=== PATIENT | female | born 1970 | race Two or more races ===

== ENCOUNTER 2016-06-30 15:33 | Emergency (ER) | payer OTHER ==
[2016-06-30 15:46] VITALS: BP 126/84; PULSE 92; RESP 18; TEMP 98.5
[2016-06-30] MEDS ORDERED: DIPH,PERTUS(ACELL)TETVAC-LF 0.5 ML VIAL IM ONE (15:59)
[2016-06-30] MEDS ORDERED: AMOXIC-POT CLAV 875-125MG 1 EACH TAB PO STA (15:59)
--- NOTE | 2016-06-30 16:09 | ED ---
Animal Bite HPI - General Chief Complaint: Animal Bite Stated Complaint: dog bite Time Seen by Provider: 06/30/16 15:50 Source: patient, RN notes reviewed Mode of arrival: ambulatory - History of Present Illness Initial Comments: Patient is a 46-year-old female presents to the emergency room evaluation of dog bite. Patient states yesterday she was taking care of a liter of puppies and one of them bit her left second digit. Patient states the area began to swell. Patient states she had shoulder surgery done in May and is worried about infection. Patient denies any numbness or tingling to her finger. Patient denies any other injuries during incident. Patient does state she is not up-to-date on her tetanus vaccine. Patient states the puppy was about 4 weeks old and was born from a dog that was fully immunized. Patient states that the puppy has not been outside or exposed to any wildlife. Patient has no fevers or chills. - Related Data Home Medications Medication Instructions Recorded Confirmed Docusate Sodium [Dulcolax Stool 100 mg PO DAILY 03/03/14 06/15/16 Softener] HYDROcodone/APAP 10-325MG [[place] 1 tab PO TID PRN 03/03/14 06/15/16 10-325] Losartan [Cozaar] 50 mg PO DAILY 03/03/14 06/15/16 Citalopram Hydrobromide [CeleXA] 20 mg PO DAILY 04/03/14 06/15/16 Omeprazole [PriLOSEC] 20 mg PO BID 04/03/14 06/15/16 Gabapentin [Neurontin] 400 mg PO TID 10/12/14 06/15/16 clonazePAM [Clonazepam] 2 mg PO HS 10/12/14 06/15/16 Albuterol Inhaler [Ventolin 2 puff INHALATION QID PRN 11/23/14 06/15/16 Inhaler] Albuterol Nebulized [Ventolin 2.5 mg INHALATION QID PRN 11/23/14 06/15/16 Nebulized] Cyclobenzaprine [Flexeril] 10 mg PO TID 02/02/15 06/15/16 Azelastine HCl [Optivar 0.05% 1 drop BOTH EYES DAILY 06/12/16 06/15/16 Oph Soln] Fenofibrate 160 mg PO DAILY 06/12/16 06/15/16 Ibuprofen [Motrin] 800 mg PO BID 06/12/16 06/15/16 Montelukast Sodium [Singulair] 10 mg PO HS 06/12/16 06/15/16 OXcarbazepine [Oxtellar Xr] 3 tab PO DAILY 06/12/16 06/15/16 Oxybutynin Chloride [Ditropan] 5 mg PO BID 06/12/16 06/15/16 Prochlorperazine [Compazine] 10 mg PO TID 06/12/16 06/15/16 Verapamil HCl [Verapamil ER] 120 mg PO DAILY 06/12/16 06/15/16 Previous Rx's Medication Instructions Recorded Doxycycline Hyclate 100 mg PO BID #10 tab 06/15/16 HYDROcodone/APAP 7.5-325MG [[place] 1 - 2 tab PO Q6HR PRN #40 tab 06/15/16 7.5-325] Amoxicillin/Potassium Clav 1 each PO Q12HR #20 tab 06/30/16 [Augmentin 875-125 Tablet] Allergies Allergy/AdvReac Type Severity Reaction Status Date / Time azithromycin Allergy Swelling Verified 06/15/16 11:28 [From Zithromax Z-Brayden] ondansetron HCl Allergy Unknown, Verified 06/15/16 11:28 [From Zofran (as ONLY IN A hydrochloride)] PILL FORM IS IT A PROBLEM morphine AdvReac Vomiting Verified 06/15/16 11:28 Review of Systems ROS Statement: Those systems with pertinent positive or pertinent negative responses have been documented in the HPI. ROS Other: All systems not noted in ROS Statement are negative. Past Medical History Past Medical History: Asthma, Diabetes Mellitus, GERD/Reflux, Hyperlipidemia, Hypertension, Memory Impairment, Musculoskeletal Disorder, Seizure Disorder Additional Past Medical History / Comment(s): Migraines. HX kidney stones. HX TYPE 2 DM, OFF RX NOW. LAST SEIZURE 12/2015. RT SHOULDER TORN ROTATOR CUFF. BONE SPURS RT SIDE NECK. NARCOLEPSY. History of Any Multi-Drug Resistant Organisms: None Reported Past Surgical History: Appendectomy, Bowel Resection, Cholecystectomy, Heart Catheterization, Tubal Ligation, Uterine Ablation Additional Past Surgical History / Comment(s): Uterine ablation. PARTIAL COLECTOMY. CYST REMOVED FROM RIGHT WRIST. PAIN INJ BACK. Past Anesthesia/Blood Transfusion Reactions: No Reported Reaction Type of Cardiac Device: Loop Device Placement Date:: MAR 2009 AND 2013 Past Psychological History: Depression Smoking Status: Former smoker Past Alcohol Use History: None Reported Additional Past Alcohol Use History / Comment(s): SMOKED FEW YEARS LIGHTLY, QUIT 2006 Past Drug Use History: None Reported - Past Family History Father Family Medical History: Cancer General Exam - General Exam Comments Initial Comments: Sitting in exam room in no acute distress. Limitations: no limitations General appearance: alert, in no apparent distress Head exam: Present: atraumatic, normocephalic, normal inspection Eye exam: Present: normal appearance ENT exam: Present: normal exam Neck exam: Present: normal inspection Respiratory exam: Absent: respiratory distress Left Hand Wrist exam: Present: full ROM. Absent: normal inspection (2 puncture wounds on the palmar portion of the proximal phalanx of the second digit) Neuro motor exam: Present: wrist extension intact, thumb opposition intact, thumb IP flexion intact, thumb adduction intact, fingers 2-5 abduction intact Vascular: Present: normal capillary refill (Capillary refill less than 2 seconds ), radial pulse (2+), ulnar pulse (2+) Back exam: Present: normal inspection Neurological exam: Present: alert, oriented X3, CN II-XII intact, normal gait Psychiatric exam: Present: normal affect, normal mood Skin exam: Present: warm, dry. Absent: rash Course Vital Signs 06/30/16 15:43 Temperature 98.5 F Pulse Rate 92 Respiratory 18 Rate Blood Pressure 126/84 O2 Sat by Pulse 98 Oximetry Medical Decision Making - Medical Decision Making Patient is a 46 year-old female presents to the emergency room for evaluation of dog bite. Patient updated on her tetanus vaccine. Patient be placed on Augmentin. Advised patient to keep wound clean and to follow-up with her primary care provider in 1-2 days. Patient states she understands everything that was discussed with her. Return parameters discussed. Case discussed with Dr. Claros. Disposition Clinical Impression: Dog bite Disposition: HOME SELF-CARE Condition: Good Instructions: Animal Bite (ED) Additional Instructions: Clean area with antibacterial soap and water. Take antibiotics as directed. Please follow up with primary care provider in 1-2 days. If any new symptom arises, symptoms worsen or fever develops, return to ER as soon as possible. Prescriptions: Amoxicillin/Potassium Clav [Augmentin 875-125 Tablet] 1 each PO Q12HR #20 tab Referrals: Mateo Govea MD [Primary Care Provider] - 1-2 days Time of Disposition: 16:06
== END 2016-06-30 16:15 | disposition home or self-care (01) ==
LOC: EC 15:33
DX: S61.251A Open bite of left index finger without damage to nail, initial encounter (principal); W54.0XXA Bitten by dog, initial encounter; Y93.K9 Activity, other involving animal care; Z23 Encounter for immunization; I10 Essential (primary) hypertension; G40.909 Epilepsy, unspecified, not intractable, without status epilepticus; K21.9 Gastro-esophageal reflux disease without esophagitis; F32.9 Major depressive disorder, single episode, unspecified; Z79.899 Other long term (current) drug therapy; Z88.1 Allergy status to other antibiotic agents; Z88.8 Allergy status to other drugs, medicaments and biological substances; Z88.5 Allergy status to narcotic agent; Z87.891 Personal history of nicotine dependence
CPT/HCPCS: 90471; 90715; 99283

== ENCOUNTER 2016-08-04 20:56 | Emergency (ER) | payer OTHER ==
[2016-08-04 21:04] VITALS: PULSE 100; RESP 16
--- NOTE | 2016-08-04 22:01 | ED ---
ENT HPI - General Chief complaint: Dizziness Stated complaint: ENT Time Seen by Provider: 08/04/16 21:29 Source: patient, RN notes reviewed Mode of arrival: wheelchair Limitations: no limitations - History of Present Illness MD complaint: sore throat, ear pain Onset/Timin -: days(s) Location: R ear, throat Severity: severe Quality: aching Consistency: constant Improves with: none Worsens with: none - Related Data Home Medications Medication Instructions Recorded Confirmed Docusate Sodium [Dulcolax Stool 100 mg PO DAILY 03/03/14 08/04/16 Softener] HYDROcodone/APAP 10-325MG [[place] 1 tab PO TID PRN 03/03/14 08/04/16 10-325] Losartan [Cozaar] 50 mg PO DAILY 03/03/14 08/04/16 Citalopram Hydrobromide [CeleXA] 20 mg PO DAILY 04/03/14 08/04/16 Omeprazole [PriLOSEC] 20 mg PO BID 04/03/14 08/04/16 Gabapentin [Neurontin] 400 mg PO TID 10/12/14 08/04/16 clonazePAM [Clonazepam] 2 mg PO HS 10/12/14 08/04/16 Albuterol Inhaler [Ventolin 2 puff INHALATION QID PRN 11/23/14 08/04/16 Inhaler] Albuterol Nebulized [Ventolin 2.5 mg INHALATION QID PRN 11/23/14 08/04/16 Nebulized] Cyclobenzaprine [Flexeril] 10 mg PO TID 02/02/15 08/04/16 Azelastine HCl [Optivar 0.05% 1 drop BOTH EYES DAILY 06/12/16 08/04/16 Ophth Soln] Fenofibrate 160 mg PO DAILY 06/12/16 08/04/16 Ibuprofen [Motrin] 800 mg PO BID 06/12/16 08/04/16 Montelukast Sodium [Singulair] 10 mg PO HS 06/12/16 08/04/16 OXcarbazepine [Oxtellar Xr] 3 tab PO DAILY 06/12/16 08/04/16 Oxybutynin Chloride [Ditropan] 5 mg PO BID 06/12/16 08/04/16 Prochlorperazine [Compazine] 10 mg PO TID 06/12/16 08/04/16 Verapamil HCl [Verapamil ER] 120 mg PO DAILY 06/12/16 08/04/16 Previous Rx's Medication Instructions Recorded Doxycycline Hyclate 100 mg PO BID #10 tab 06/15/16 HYDROcodone/APAP 7.5-325MG [[place] 1 - 2 tab PO Q6HR PRN #40 tab 06/15/16 7.5-325] Amoxicillin/Potassium Clav 1 each PO Q12HR #20 tab 06/30/16 [Augmentin 875-125 Tablet] Allergies Allergy/AdvReac Type Severity Reaction Status Date / Time azithromycin Allergy Swelling Verified 08/04/16 21:04 [From Zithromax Z-Brayden] ondansetron HCl Allergy Unknown, Verified 08/04/16 21:04 [From Zofran (as ONLY IN A hydrochloride)] PILL FORM IS IT A PROBLEM morphine AdvReac Vomiting Verified 08/04/16 21:04 Review of Systems ROS Statement: Those systems with pertinent positive or pertinent negative responses have been documented in the HPI. ROS Other: All systems not noted in ROS Statement are negative. Constitutional: Denies: fever, chills, weakness Eyes: Denies: eye pain, eye discharge, vision change ENT: Reports: ear pain, throat pain. Denies: hearing loss, congestion Respiratory: Reports: cough. Denies: dyspnea Cardiovascular: Denies: chest pain Gastrointestinal: Denies: abdominal pain, nausea, vomiting Musculoskeletal: Denies: back pain Neurological: Denies: headache Past Medical History Past Medical History: Asthma, Diabetes Mellitus, GERD/Reflux, Hyperlipidemia, Hypertension, Memory Impairment, Musculoskeletal Disorder, Seizure Disorder Additional Past Medical History / Comment(s): Migraines. HX kidney stones. HX TYPE 2 DM, OFF RX NOW. LAST SEIZURE 12/2015. RT SHOULDER TORN ROTATOR CUFF. BONE SPURS RT SIDE NECK. NARCOLEPSY. History of Any Multi-Drug Resistant Organisms: None Reported Past Surgical History: Appendectomy, Bowel Resection, Cholecystectomy, Heart Catheterization, Tubal Ligation, Uterine Ablation Additional Past Surgical History / Comment(s): Uterine ablation. PARTIAL COLECTOMY. CYST REMOVED FROM RIGHT WRIST. PAIN INJ BACK. Past Anesthesia/Blood Transfusion Reactions: No Reported Reaction Type of Cardiac Device: Loop Device Placement Date:: MAR 2009 AND 2013 Past Psychological History: Depression Smoking Status: Former smoker Past Alcohol Use History: None Reported Additional Past Alcohol Use History / Comment(s): SMOKED FEW YEARS LIGHTLY, QUIT 2006 Past Drug Use History: None Reported - Past Family History Father Family Medical History: Cancer General Exam Limitations: no limitations General appearance: alert, in no apparent distress Head exam: Present: atraumatic, normocephalic Eye exam: Present: normal appearance, PERRL, EOMI. Absent: scleral icterus, conjunctival injection, nystagmus ENT exam: Present: other (There is injection of the oropharynx. The uvula is midline without edema. There is mild erythema to the right external auditory canal and there is mild tenderness of the tragus. The right tympanic membrane normal, no effusion.) Neck exam: Present: normal inspection, full ROM, lymphadenopathy. Absent: tenderness, meningismus Neurological exam: Present: alert, CN II-XII intact Skin exam: Present: warm, dry, intact, normal color. Absent: rash Course Vital Signs 08/04/16 21:01 Temperature 98.2 F Pulse Rate 100 Respiratory 16 Rate Blood Pressure 148/52 O2 Sat by Pulse 97 Oximetry Medical Decision Making - Lab Data Lab Results 08/04/16 Range/Units 21:14 Group A Strep Rapid Negative (Negative) Disposition Clinical Impression: External otitis of right ear Disposition: HOME SELF-CARE Condition: Good Instructions: Otitis Externa (ED) Referrals: Mateo Govea MD [Primary Care Provider] - 1-2 days
--- NOTE | 2016-08-04 22:09 | CT ---
EXAMINATION TYPE: CT mastoid wo con DATE OF EXAM: 08/04/2016 10:01 PM COMPARISON: NONE HISTORY: Pt states of ear infection and falls x2. CT DLP: 150 mGycm Automated exposure control for dose reduction was used. FINDINGS: Multiple axial sections were obtained through the temporal bones without contrast. There is some debris in the left external auditory canal. There is bilateral normal appearance of the tympanic recess with normal aeration. There is normal aeration of the middle ear cavity bilaterally. There is normal aeration of the mastoid air cells. Cochlea and semicircular canals are symmetric. Th ere is no evidence of a cerebellopontine angle mass. Internal auditory canals are symmetric. I see no bony destructive process. IMPRESSION: NEGATIVE CT SCAN OF THE TEMPORAL BONES. I DO NOT SEE A CAUSE FOR RIGHT SIDE SYMPTOMS.
[2016-08-04] MEDS ORDERED: NEOMYCIN-POLYMYXIN-HC (3.5-10,000-10 MG) OTIC DROPS 10 ML BTL RIGHT EAR STA (22:25)
[2016-08-04 22:38] VITALS: BP 124/77; TEMP 98.7
== END 2016-08-04 22:40 | disposition home or self-care (01) ==
LOC: EC 20:56
DX: H60.91 Unspecified otitis externa, right ear (principal); R42 Dizziness and giddiness; J02.9 Acute pharyngitis, unspecified; J45.909 Unspecified asthma, uncomplicated; E11.9 Type 2 diabetes mellitus without complications; K21.9 Gastro-esophageal reflux disease without esophagitis; E78.5 Hyperlipidemia, unspecified; I10 Essential (primary) hypertension; G40.909 Epilepsy, unspecified, not intractable, without status epilepticus; F32.9 Major depressive disorder, single episode, unspecified; Z87.891 Personal history of nicotine dependence; Z79.899 Other long term (current) drug therapy; Z88.5 Allergy status to narcotic agent; Z88.1 Allergy status to other antibiotic agents; Z88.8 Allergy status to other drugs, medicaments and biological substances
CPT/HCPCS: 70486; 87081; 87430; 99284

== ENCOUNTER → 2016-10-23 | Outpatient (CLI) | payer OTHER ==
--- NOTE | 2016-10-23 13:16 | XR ---
EXAMINATION TYPE: XR chest 2V DATE OF EXAM: 10/23/2016 1:12 PM HISTORY: R06.02 Shortness of breath. REFERENCE: Previous study dated 07/16/2015. FINDINGS: The lungs are clear. Pleural spaces are clear. Heart size is normal. IMPRESSION: NORMAL CHEST.
== END | disposition home or self-care (01) ==
LOC: RADXRMAIN 13:04
PROVIDERS: ATTEND Family Medicine
DX: R06.02 Shortness of breath (principal)
CPT/HCPCS: 71020

== ENCOUNTER → 2017-03-06 | Outpatient (CLI) | payer OTHER ==
--- NOTE | 2017-03-06 18:11 | XR ---
EXAMINATION TYPE: XR shoulder complete LT DATE OF EXAM: 03/06/2017 COMPARISON: NONE HISTORY: Pain TECHNIQUE: 3 views FINDINGS: I see no fracture nor dislocation. Glenohumeral joint is anatomic. There is a 5 mm calcific ation at the greater tuberosity. AC joint appears normal. IMPRESSION: Calcific tendinitis. No fracture.
== END | disposition home or self-care (01) ==
LOC: RADXRMAIN 16:56
PROVIDERS: ATTEND Family Medicine
DX: M75.32 Calcific tendinitis of left shoulder (principal)

== ENCOUNTER 2017-03-09 16:47 | Emergency (ER) | payer OTHER ==
[2017-03-09 17:05] VITALS: RESP 18
[2017-03-09] MEDS ORDERED: HYDROmorphone 1 MG/ML 1 ML SYRINGE IM STA (17:18)
--- NOTE | 2017-03-09 17:51 | ED ---
General Adult HPI - General Chief complaint: Extremity Injury, Upper Stated complaint: Arm Pain Time Seen by Provider: 03/09/17 16:58 Source: patient, family Mode of arrival: ambulatory Limitations: no limitations - History of Present Illness Initial comments: 47-year-old female patient presents to emergency department today for evaluation of right shoulder and upper arm pain. Patient states that she has had this increased pain over the last 3-4 days. She states that she has been using his are more due to a surgery on her right shoulder in May. She states that she did see her primary care physician 2 days ago and did have an x- ray done of the shoulder. Patient states that the pain feels similar to when she injured her right arm and had a bicep muscle tear. She states she does have a appointment with her orthopedic surgeon on Sunday for evaluation. She states that the pain is a sharp burning pain that worsens with any movement of her left shoulder or elbow. She states that the pain radiates down her forearm. She denies any numbness or tingling to her hand. Denies any redness, warmth, or rash. Patient denies any recent fever, chills, shortness breath, chest pain, abdominal pain, nausea, vomiting, diarrhea, constipation, back pain , numbness, tingling, headache, visual changes, hematuria, dysuria, urinary frequency, urinary urgency, or any other complaints. - Related Data Home Medications Medication Instructions Recorded Confirmed Docusate Sodium [Dulcolax Stool 100 mg PO DAILY 03/03/14 08/04/16 Softener] HYDROcodone/APAP 10-325MG [[place] 1 tab PO TID PRN 03/03/14 08/04/16 10-325] Losartan [Cozaar] 50 mg PO DAILY 03/03/14 08/04/16 Citalopram Hydrobromide [CeleXA] 20 mg PO DAILY 04/03/14 08/04/16 Omeprazole [PriLOSEC] 20 mg PO BID 04/03/14 08/04/16 Gabapentin [Neurontin] 400 mg PO TID 10/12/14 08/04/16 clonazePAM [Clonazepam] 2 mg PO HS 10/12/14 08/04/16 Albuterol Inhaler [Ventolin 2 puff INHALATION QID PRN 11/23/14 08/04/16 Inhaler] Albuterol Nebulized [Ventolin 2.5 mg INHALATION QID PRN 11/23/14 08/04/16 Nebulized] Cyclobenzaprine [Flexeril] 10 mg PO TID 02/02/15 08/04/16 Azelastine HCl [Optivar 0.05% 1 drop BOTH EYES DAILY 06/12/16 08/04/16 Ophth Soln] Fenofibrate 160 mg PO DAILY 06/12/16 08/04/16 Ibuprofen [Motrin] 800 mg PO BID 06/12/16 08/04/16 Montelukast Sodium [Singulair] 10 mg PO HS 06/12/16 08/04/16 OXcarbazepine [Oxtellar Xr] 3 tab PO DAILY 06/12/16 08/04/16 Oxybutynin Chloride [Ditropan] 5 mg PO BID 06/12/16 08/04/16 Prochlorperazine [Compazine] 10 mg PO TID 06/12/16 08/04/16 Verapamil HCl [Verapamil ER] 120 mg PO DAILY 06/12/16 08/04/16 Previous Rx's Medication Instructions Recorded Doxycycline Hyclate 100 mg PO BID #10 tab 06/15/16 HYDROcodone/APAP 7.5-325MG [[place] 1 - 2 tab PO Q6HR PRN #40 tab 06/15/16 7.5-325] Amoxicillin/Potassium Clav 1 each PO Q12HR #20 tab 06/30/16 [Augmentin 875-125 Tablet] Allergies Allergy/AdvReac Type Severity Reaction Status Date / Time azithromycin Allergy Swelling Verified 03/09/17 17:06 [From Zithromax Z-Brayden] ondansetron HCl Allergy Unknown, Verified 03/09/17 17:06 [From Zofran (as ONLY IN A hydrochloride)] PILL FORM IS IT A PROBLEM morphine AdvReac Vomiting Verified 03/09/17 17:06 Review of Systems ROS Statement: Those systems with pertinent positive or pertinent negative responses have been documented in the HPI. ROS Other: All systems not noted in ROS Statement are negative. Past Medical History Past Medical History: Asthma, Diabetes Mellitus, GERD/Reflux, Hyperlipidemia, Hypertension, Memory Impairment, Musculoskeletal Disorder, Seizure Disorder Additional Past Medical History / Comment(s): Migraines. HX kidney stones. HX TYPE 2 DM, OFF RX NOW. LAST SEIZURE 12/2015. RT SHOULDER TORN ROTATOR CUFF. BONE SPURS RT SIDE NECK. NARCOLEPSY. History of Any Multi-Drug Resistant Organisms: None Reported Past Surgical History: Appendectomy, Bowel Resection, Cholecystectomy, Heart Catheterization, Tubal Ligation, Uterine Ablation Additional Past Surgical History / Comment(s): Uterine ablation. PARTIAL COLECTOMY. CYST REMOVED FROM RIGHT WRIST. PAIN INJ BACK. Past Anesthesia/Blood Transfusion Reactions: No Reported Reaction Type of Cardiac Device: Loop Device Placement Date:: MAR 2009 AND 2013 Past Psychological History: Anxiety Smoking Status: Former smoker Past Alcohol Use History: None Reported Past Drug Use History: None Reported - Past Family History Father Family Medical History: Cancer General Exam Limitations: no limitations General appearance: alert, in no apparent distress Eye exam: Present: normal appearance, PERRL, EOMI. Absent: scleral icterus, conjunctival injection, periorbital swelling ENT exam: Present: normal exam, normal oropharynx, mucous membranes moist Neck exam: Present: normal inspection. Absent: tenderness, meningismus, lymphadenopathy Respiratory exam: Present: normal lung sounds bilaterally. Absent: respiratory distress, wheezes, rales, rhonchi, stridor Cardiovascular Exam: Present: regular rate, normal rhythm, normal heart sounds. Absent: systolic murmur, diastolic murmur, rubs, gallop, clicks GI/Abdominal exam: Present: soft, normal bowel sounds. Absent: distended, tenderness, guarding, rebound, rigid Extremities exam: Present: normal inspection, normal capillary refill. Absent: full ROM (Full range of motion of the left elbow however causes increased pain to her upper arm. Patient has forward flexion of about 45 before she has significant pain and has to stop. She has about 30 abduction before she states too much pain to continue. Skin is pink, warm, and dry. Cap refill less than 3 seconds. Radial pulses are strong and equal bilaterally. No significant swelling noted to the arm or joints.), tenderness, pedal edema, joint swelling, calf tenderness Back exam: Present: normal inspection Neurological exam: Present: alert, oriented X3, CN II-XII intact Psychiatric exam: Present: normal affect, normal mood Skin exam: Present: warm, dry, intact, normal color. Absent: rash Course Vital Signs 03/09/17 17:03 Temperature 97.7 F Pulse Rate 94 Respiratory 18 Rate Blood Pressure 134/92 O2 Sat by Pulse 97 Oximetry Medical Decision Making - Medical Decision Making 47-year-old female patient presented to emergency department today for evaluation of left shoulder pain. Patient has no injury to the area. Has pain did radiate down into her left upper arm and she did have some tenderness to the area we did perform a venous duplex of the left upper extremity which was negative for any acute DVT. X-ray obtained by her primary care physician 2 days ago did show some skin calcific tendinitis which could be contributed to her pain. She does have an appointment with her soil fertility specialist on Sunday which I urged her to keep. She is instructed to continue her ibuprofen and [place] that she has a home as well as to apply warm moist heat to the area. She verbalizes understanding and agrees with this plan. - Radiology Data Radiology results: report reviewed, image reviewed US venous Doppler duplex of the left upper extremity appears negative for DVT. Impression by Dr. Langston shows no evidence of deep venous thrombosis of the left arm. 3 views of the left shoulder shows no fracture nor dislocation. Glenohumeral joint is anatomic. There is a 5 mm calcification at the greater tuberosity. Before meals joint appears normal. Impression by Dr. Langston shows calcific tendinitis with no fracture. Disposition Clinical Impression: Left arm pain, Calcific tendonitis of left shoulder Disposition: HOME SELF-CARE Condition: Good Additional Instructions: Continue with ibuprofen and [place] for pain relief. Apply warm moist heat to the area. Keep appointments with primary care physician and soil fertility specialist for further evaluation. Return immediately for any new, worsening, or concerning symptoms. Referrals: Mateo Govea MD [Primary Care Provider] - 1-2 days Time of Disposition: 18:35
--- NOTE | 2017-03-09 18:23 | US ---
EXAMINATION TYPE: US venous doppler duplex UE LT DATE OF EXAM: 03/09/2017 COMPARISON: NONE CLINICAL HISTORY: Pain in left arm. SIDE PERFORMED: Left Left Arm: Appears negative for DVT IMPRESSION: No evidence of deep venous thrombosis in the left arm.
[2017-03-09 18:48] VITALS: BP 123/68; PULSE 82; TEMP 97.9
== END 2017-03-09 18:48 | disposition home or self-care (01) ==
LOC: EC 16:47
DX: M75.32 Calcific tendinitis of left shoulder (principal); M79.622 Pain in left upper arm; E11.9 Type 2 diabetes mellitus without complications; J45.909 Unspecified asthma, uncomplicated; K21.9 Gastro-esophageal reflux disease without esophagitis; E78.5 Hyperlipidemia, unspecified; I10 Essential (primary) hypertension; G43.909 Migraine, unspecified, not intractable, without status migrainosus; F41.9 Anxiety disorder, unspecified; Z87.891 Personal history of nicotine dependence; Z79.1 Long term (current) use of non-steroidal anti-inflammatories (NSAID); Z79.899 Other long term (current) drug therapy; Z88.1 Allergy status to other antibiotic agents; Z88.5 Allergy status to narcotic agent; Z88.8 Allergy status to other drugs, medicaments and biological substances
CPT/HCPCS: 93971; 99283; 96372; J1170

== ENCOUNTER 2017-05-05 11:02 | Emergency (ER) | payer OTHER ==
[2017-05-05 11:09] VITALS: BP 128/82; PULSE 114; RESP 16; TEMP 97
--- NOTE | 2017-05-05 11:29 | ED ---
General Adult HPI - General Chief complaint: Extremity Problem,Nontraumatic Stated complaint: POST OP LEG PAIN Time Seen by Provider: 05/05/17 11:05 Source: patient, RN notes reviewed Mode of arrival: wheelchair Limitations: no limitations - History of Present Illness Initial comments: This is a 47-year-old female who presents emergency Department complaining of left calf pain. Patient states she had injections in her back on Sunday from anesthesia and ever since then her left calf is been very painful particularly when she walks. Patient has not noticed any swelling of the Patient has not noticed any redness of the calf. Patient states moving it makes it hurt more as well as squeezing it makes it hurt. Patient denies any previous history of any clots. Patient is worried that it might have a clot in it because of the pain. Patient denies any back pain at this time. Patient denies any areas of redness or swelling in her back. Patient denies any injury to her leg. Patient denies any shortness of breath difficulty breathing or chest pain patient denies any fever chills - Related Data Home Medications Medication Instructions Recorded Confirmed Docusate Sodium [Dulcolax Stool 100 mg PO DAILY 03/03/14 04/26/17 Softener] HYDROcodone/APAP 10-325MG [[place] 1 tab PO TID PRN 03/03/14 04/26/17 10-325] Losartan [Cozaar] 50 mg PO DAILY 03/03/14 04/26/17 Citalopram Hydrobromide [CeleXA] 20 mg PO DAILY 04/03/14 04/26/17 Omeprazole [PriLOSEC] 20 mg PO BID 04/03/14 04/26/17 Gabapentin [Neurontin] 400 mg PO TID 10/12/14 04/26/17 clonazePAM [Clonazepam] 2 mg PO HS 10/12/14 04/26/17 Albuterol Inhaler [Ventolin 2 puff INHALATION QID PRN 11/23/14 05/01/17 Inhaler] Albuterol Nebulized [Ventolin 2.5 mg INHALATION QID PRN 11/23/14 05/01/17 Nebulized] Cyclobenzaprine [Flexeril] 10 mg PO TID 02/02/15 04/26/17 Azelastine HCl [Optivar 0.05% 1 drop BOTH EYES DAILY 06/12/16 04/26/17 Ophth Soln] Fenofibrate 160 mg PO DAILY 06/12/16 04/26/17 Ibuprofen [Motrin] 800 mg PO BID 06/12/16 04/26/17 Montelukast Sodium [Singulair] 10 mg PO HS 06/12/16 04/26/17 OXcarbazepine [Oxtellar Xr] 900 mg PO DAILY 06/12/16 04/26/17 Oxybutynin Chloride [Ditropan] 5 mg PO BID 06/12/16 04/26/17 Prochlorperazine [Compazine] 10 mg PO TID 06/12/16 04/26/17 Verapamil HCl [Verapamil ER] 120 mg PO DAILY 06/12/16 04/26/17 Cetirizine HCl 10 mg PO DAILY 05/01/17 05/01/17 Allergies Allergy/AdvReac Type Severity Reaction Status Date / Time azithromycin Allergy Swelling Verified 05/05/17 11:09 [From Zithromax Z-Brayden] ondansetron HCl Allergy Unknown, Verified 05/05/17 11:09 [From Zofran (as ONLY IN A hydrochloride)] PILL FORM IS IT A PROBLEM morphine AdvReac Vomiting Verified 05/05/17 11:09 Review of Systems ROS Statement: Those systems with pertinent positive or pertinent negative responses have been documented in the HPI. ROS Other: All systems not noted in ROS Statement are negative. Past Medical History Past Medical History: Asthma, Diabetes Mellitus, GERD/Reflux, Hyperlipidemia, Hypertension, Memory Impairment, Musculoskeletal Disorder, Seizure Disorder Additional Past Medical History / Comment(s): Migraines. HX kidney stones. HX TYPE 2 DM-OFF RX NOW. LAST SEIZURE 12/2016. RT SHOULDER TORN ROTATOR CUFF. BONE SPURS RT SIDE NECK,fx. tailbone, colitis, NARCOLEPSY. History of Any Multi-Drug Resistant Organisms: None Reported Past Surgical History: Appendectomy, Bowel Resection, Cholecystectomy, Heart Catheterization, Tubal Ligation, Uterine Ablation Additional Past Surgical History / Comment(s): CYST REMOVED FROM RIGHT WRIST, pain clinic procedures Past Anesthesia/Blood Transfusion Reactions: No Reported Reaction Type of Cardiac Device: Loop Device Placement Date:: MAR 2009 AND 2013 Past Psychological History: Anxiety Smoking Status: Former smoker Past Alcohol Use History: None Reported Past Drug Use History: None Reported - Past Family History Father Family Medical History: Cancer General Exam - General Exam Comments Initial Comments: GENERAL: Patient is well-developed and well-nourished. Patient is nontoxic and well- hydrated and is in mild distress. ENT: Neck is soft and supple. No significant lymphadenopathy is noted. Oropharynx is clear. Moist mucous membranes. Neck has full range of motion without eliciting any pain. EYES: The sclera were anicteric and conjunctiva were pink and moist. Extraocular movements were intact and pupils were equal round and reactive to light. Eyelids were unremarkable. PULMONARY: Unlabored respirations. Good breath sounds bilaterally. No audible rales rhonchi or wheezing was noted. CARDIOVASCULAR: There is a regular rate and rhythm without any murmurs gallops or rubs. ABDOMEN: Soft and nontender with normal bowel sounds. No palpable organomegaly was noted. There is no palpable pulsatile mass. SKIN: Skin is clear with no lesions or rashes and otherwise unremarkable. NEUROLOGIC: Patient is alert and oriented x3. Cranial nerves II through XII are grossly intact. Motor and sensory are also intact. Normal speech, volume and content. Symmetrical smile. MUSCULOSKELETAL: Normal extremities with adequate strength and full range of motion. No lower extremity swelling or edema. The calf is tender to palpate. LYMPHATICS: No significant lymphadenopathy is noted PSYCHIATRIC: Normal psychiatric evaluation. Normal interpersonal interactions appears functionally intact in deals appropriately with others. No signs of depression. No signs of anxiety. N Limitations: no limitations Course Vital Signs 05/05/17 11:05 Temperature 97.0 F L Pulse Rate 114 H Respiratory 16 Rate Blood Pressure 128/82 O2 Sat by Pulse 100 Oximetry Medical Decision Making - Medical Decision Making Ultrasound showed no DVT. Disposition Clinical Impression: Strain of calf muscle Disposition: HOME SELF-CARE Condition: Good Instructions: Muscle Strain (ED) Additional Instructions: Patient should take Motrin 600 mg every 6 when necessary Referrals: Mateo Govea MD [Primary Care Provider] - 1-2 days Time of Disposition: 11:52
--- NOTE | 2017-05-05 11:48 | US ---
EXAMINATION TYPE: US venous doppler duplex LE LT DATE OF EXAM: 05/05/2017 11:42 AM COMPARISON: Previous study dated 03/09/2017. CLINICAL HISTORY: Pain left leg. SIDE PERFORMED: Left TECHNIQUE: The lower extremity deep venous system is examined utilizing real time linear array sonog zamzam with graded compression, doppler sonography and color-flow sonography. VESSELS IMAGED: External Iliac Vein (EIV) Common Femoral Vein Deep Femoral Vein Greater Saphenous Vein * Femoral Vein Popliteal Vein Small Saphenous Vein * Proximal Calf Veins (* superficial vessels) Left Leg: Negative for DVT No popliteal fossa lesion is seen. IMPRESSION: THIS EXAMINATION IS NEGATIVE FOR DVT WITHIN THE LEFT LEG.
== END 2017-05-05 12:05 | disposition home or self-care (01) ==
LOC: EC 11:02
DX: S86.912A Strain of unspecified muscle(s) and tendon(s) at lower leg level, left leg, initial encounter (principal); J45.909 Unspecified asthma, uncomplicated; I10 Essential (primary) hypertension; G40.909 Epilepsy, unspecified, not intractable, without status epilepticus; K21.9 Gastro-esophageal reflux disease without esophagitis; F41.9 Anxiety disorder, unspecified; Z87.891 Personal history of nicotine dependence; Z98.890 Other specified postprocedural states; Z88.1 Allergy status to other antibiotic agents; Z88.5 Allergy status to narcotic agent; Z88.8 Allergy status to other drugs, medicaments and biological substances; Z79.899 Other long term (current) drug therapy; X58.XXXA Exposure to other specified factors, initial encounter
CPT/HCPCS: 99283

== ENCOUNTER → 2017-06-26 | Outpatient (CLI) | payer OTHER ==
--- NOTE | 2017-06-26 15:37 | P.PN ---
Subjective Progress Note Date: 06/26/17 This is follow-up visit for this patient with a history of severe and chronic low back pain and chronic neck pain diagnosed with lumbar degenerative disc diseases , lumbar herniated disc disease, lumbar epidural steroid injections which helped her low back pain and patient currently complaining of increased neck pain, constant and increases with any neck movement radiated to the shoulder blade area bilaterally, no numbness or tingling sensation she had no motor or sensory deficits Patients currently on 1-Neurontin 400 mg 3 times a day 2- norco 10/325 every 6 hours 3-Flexeril 10 mg 3 times a day. 4- motrin 800 mg 3 times a day Patient denies any side effects of the medication, denies excessive drowsiness or sleepiness, denies suicidal ideation, and reports that the current pain medication is NOT helping To control the pain and improve activity of daily living Patient denies any motor or sensory deficit , patient denies any fever or night sweats, denies any change in the bowel movements or urination Physical Examinations : 1-Constitutiona : Cooperative , not in acute distress . 2-HEENT : nech ; supple , no Lymphadenopathy , no Thyromegaly , normal thyroid size . eyes : no ptosis , no icterus, no photophobia . ENT : normal of hearing , normal oropharynx , no Thrush . 3- Respiratory : Chest clear to auscultations Bilaterally , no wheezing , no Rhonchi . 4- Cardiovascular : regular rate and rhythem , S1 , S2 , no S3 , no S4. 5- Gastrointestinal : abdomen soft no tenderness , bowel sounds positive all four quadrents , no organomegally . 6- Genitourinary : Defferred . 7- neurologic : Cranial nerve II to XII intact , no focal neurological deffecit . 8-psychatric : alert , oriented X 3 , appropriate affect , intact judgment and insight . 9-Lymphatic : no Lymphadenopathy . 10- musculoskeltal : exams of the cervical spine = motor strength normal bilateral upper extremities facet loading test cervical area positive. exams of the Lumber spine = motor strength lower extremities ,thigh and legs .5/5 Assessment and plan = Chronic low back pain secondary to lumbar degenerative disc disease , improved after the caudal epidural neck pain mostely secondary to cervical spondylosis with cervical facet arthropathy , order MRI of the cervical spine to evaluate and confirm the etiology she should Continue her current medication she is getting prescription refilled from her primary care Objective - Vital Signs Vital signs: Vital Signs Temp Pulse 95 06/26/17 14:50 Resp 18 06/26/17 14:50 BP 117/85 06/26/17 14:50 Pulse Ox 96 06/26/17 14:50 Intake & Output 06/25/17 06/26/17 06/26/17 18:59 06:59 18:59 Weight 80.739 kg
[2017-06-27 23:07] VITALS: BP 117/85; PULSE 95; RESP 18
== END | disposition home or self-care (01) ==
LOC: PNWHC3 14:19
PROVIDERS: ATTEND Specialist
DX: G89.29 Other chronic pain (principal); M47.812 Spondylosis without myelopathy or radiculopathy, cervical region; M46.82 Other specified inflammatory spondylopathies, cervical region; M51.36 Other intervertebral disc degeneration, lumbar region; Z79.891 Long term (current) use of opiate analgesic; Z79.1 Long term (current) use of non-steroidal anti-inflammatories (NSAID); Z79.899 Other long term (current) drug therapy
CPT/HCPCS: 99211

== ENCOUNTER → 2017-06-27 | Outpatient (CLI) | payer OTHER ==
--- NOTE | 2017-06-27 23:10 | MR ---
EXAMINATION TYPE: MR cervical spine wo con DATE OF EXAM: 06/27/2017 COMPARISON: NONE HISTORY: Neck pain x8 years TECHNIQUE: Multiplanar, multisequence images of the cervical spine were acquired. FINDINGS: Cervical vertebra have normal alignment. Disc spaces are fairly well-maintained. There are small post erior disc bulges at C3-4 and C5-6 without significant impingement on the spinal canal. Cervical spin al cord appears normal. Brainstem appears normal. There is no spinal stenosis. There is no evidence f or fracture. There is also some posterior disc bulging and herniation at C4-5. I see no bony destruct avani process. There is no cervical paraspinal mass. Posterior elements appear intact. IMPRESSION: There are mild posterior disc herniations at C3-4 C4-5 C5-6. There is developmentally adequate spinal canal and no spinal stenosis. Normal cervical spinal cord.
== END ==
LOC: RADMRIMAIN 21:24
PROVIDERS: ATTEND Specialist
DX: M50.21 Other cervical disc displacement, high cervical region (principal)
CPT/HCPCS: 72141

== ENCOUNTER 2017-07-05 10:30 | Day surgery (SDC) | payer OTHER ==
[2017-06-27 23:30] VITALS: BMI 33.6
[~2017-07-05 10:30] MED LIST: DEXAMETHASONE SOD PHOSPHATE 10 MG/ML 1 ML VIAL IV ONE; HYDROmorphone 0.5 MG/0.5 ML SYRINGE IVP PRN; LACTATED RINGERS 1,000 ML IV SCH; LIDOCAINE 1% 20 ML VIAL (10MG/ML) FOR IV START INTRADERMA PRN; MIDAZOLAM 2 MG/2 ML VIAL IV PRN; ONDANSETRON 4 MG/2 ML VIAL IVP ONE; Pre Op ABX Message 1 EACH MISC MISCELLANE ONE; SCOPOLAMINE 1.5MG/72HR PATCH TRANSDERM ONE
[2017-07-05 11:24] LABS: Glucose,Whole Blood 103 mg/dL (75-99)
[2017-07-05] MEDS ORDERED: PROPOFOL 10 MG/ML 20 ML VIAL IV ONE (12:03)
[2017-07-05] MEDS ORDERED: GLYCOPYRROLATE 0.2 MG/ML 2 ML VIAL ONE (12:03)
[2017-07-05] MEDS ORDERED: LIDOCAINE 2%-EPI 1:100,000 20 ML VIAL ONE (12:03)
[2017-07-05] MEDS ORDERED: LIDOCAINE 1% INJ 10MG/ML (20 ML MDV) ONE (12:03)
[2017-07-05] MEDS ORDERED: ePHEDrine SULFATE/0.9% NACL/PF 50 MG/5 ML SYRINGE IV ONE (12:03)
[2017-07-05] MEDS ORDERED: PHENYLEPHRINE-0.9% NACL SYG 1 MG/10 ML SYRINGE ONE (12:03)
[2017-07-05] MEDS ORDERED: SUCCINYLCHOLINE CHLORIDE 100 MG/5 ML SYR IV ONE (12:03)
[2017-07-05] MEDS ORDERED: fentaNYL (PF) 50 MCG/ML 2 ML AMP ONE (12:03)
[2017-07-05] MEDS ORDERED: ROPIVACAINE 5 MG/ML 30 ML VIAL ONE (12:03)
--- NOTE | 2017-07-05 12:44 | P.ONQ ---
Anesthesiology Proc Note - PNB - Peripheral Nerve Block Performed Left Interscalene Indication: Acute Post-Operative Pain, Requested by physician (Dr White) Sedation Type: Sedate with meaningful contact maintained Preparation: Sterile Prep Position: Supine Catheter: None Needle Types: Other (see comment) ([place]) Needle Size: 50mm (2") Needle Gauge: 20 Technique: Ultrasound Injectate: 0.5% Ropivacaine (see comment for volume) (24cc) Blood Aspirated: No Pain Paresthesia on Injection Noted: No Resistance on Injection: Normal Events: Uneventful and Well Tolerated
[2017-07-05 13:31] VITALS: TEMP 97.7
[2017-07-05 13:33] VITALS: RESP 16
[2017-07-05] MEDS ORDERED: METOPROLOL TARTRATE 5 MG/5 ML VIAL IVP ONE (13:57)
[2017-07-05] MEDS ORDERED: HYDROcodone/APAP 10-325MG 1 EACH TAB PO ONE (14:34)
[2017-07-05 15:19] VITALS: BP 112/64; PULSE 104
--- NOTE | 2017-07-05 17:34 | OP ---
OPERATIVE REPORT DATE OF PROCEDURE: 07/05/2017. PREOP DIAGNOSES: 1. Left shoulder full-thickness rotator cuff tear. 2. Left shoulder superior labral tear. 3. Left shoulder subacromial impingement. POSTOPERATIVE DIAGNOSIS: 1. Left shoulder full-thickness tear of the anterior supraspinatus, 1 cm x 1 cm tear. 2. Left shoulder type 2 displaced superior labral tear. 3. Left shoulder type 2 anterolateral acromial spur. PROCEDURE PERFORMED: 1. Left shoulder arthroscopic rotator cuff repair 1 cm x 1 cm tear of the supraspinatus. 2. Left shoulder arthroscopic acromioplasty. 3. Left shoulder arthroscopic biceps tenotomy. 4. Left shoulder anterior superior and posterior labral debridement. SURGEON: Rito White M.D. PASSENGER COACH DRIVER: George ONTIVEROS. ANESTHESIA: General endotracheal. ESTIMATED BLOOD LOSS: Was minimal. TOURNIQUET: None. DRAINS: None. COMPLICATIONS: None apparent. DISPOSITION: Postanesthesia care unit. INDICATIONS: Examination under anesthesia, left shoulder is first: Elevation 160 degrees. External rotation at the side to 45. External rotation at 90 degrees, abduction was 90 degrees, internal rotation at 90 degrees, abduction was 60 degrees. Sulcus less than 1 cm. Anterior translation glenoid face, posterior translation glenoid face. Arthroscopic findings left shoulder. 1. Superior labrum type 2, superior labral tear, tearing both anterior and posterior to biceps anchor. The biceps anchor was not intact. The biceps anchor was readily displaceable. There was significant tenosynovitis about the long head of the biceps tendon. 2. Anterior inferior labrum, normal glenoid labral attachment. 3. Posterior labrum tearing of the posterior labrum from the 9 o'clock position to the 12 o'clock position on the glenoid face. 4. Humeral head cartilage was normal. 5. Rotator cuff full-thickness tear of the anterior supraspinatus measuring 1 cm x 1 cm with minimal retraction. 6. Glenoid face cartilage was normal. 7. Subacromial space, fraying of the undersurface of the coracoacromial ligament with a type 2 anterolateral acromial spur. INDICATIONS: Apoorva is a 47-year-old female with left shoulder pain. This has been going on for quite some time. She has noted weakness as well as significant pain in the shoulder. She has been through fairly significant course of nonoperative treatment up to this point. Physical examination and MRI revealed tearing of the rotator cuff as well as the superior labrum. At this point time, she feels if she has failed nonoperative treatment, would like to proceed with operative intervention. Long discussion was held with the patient with regard to treatment options. The risks of procedure were all discussed with her in detail. These risks included, but were not limited to risk of infection, nerve damage, bleeding, pain, and a small risk of deep vein thrombosis which could lead to fatal pulmonary embolism. Further risks include lack of healing of the rotator cuff and the possibility for biceps contour change with a biceps tenotomy. The patient understands the operation as well as the fact that there was no guarantee of improvement of her symptoms. Appropriate informed consent was obtained. DESCRIPTION OF THE PROCEDURE: The patient was identified in preop holding area. Surgical sites marked by both the patient myself. She was given 2 g of Ancef IV for prophylactic purposes. She was then transported to the operative suite. She was placed supine on the operative table. The patient was then intubated endotracheally and received general anesthesia throughout the operative procedure. Examination under anesthesia was then performed and the findings were noted above. The patient was then placed into the beach chair position well-padded in preparation for surgery. Great care was taken to ensure the cervical spine is in neutral alignment, well-padded and maintained that way throughout the operative procedure. Great care was also taken to ensure that her legs were appropriately padded as well. The patient's left upper extremity was then prepped and draped in usual sterile fashion. Standard surgical pause undertaken to ensure that appropriate preop antibiotics were given and that we were operating on the correct site. All staff in the room in agreement and we proceeded. The acromion as well as the AC joint, coracoid marked surgical pen. The skin of the anticipated portal sites were also marked surgical pen. The skin of the anticipated port sites were then injected with 0.25% Marcaine with epinephrine. I then proceeded to make a posterior portal. A 30 degree arthroscope was introduced in the glenohumeral joint through this portal. The arthroscopic pump pressure was set at 40 mmHg and maintained at that level throughout the entire case. Next utilizing an 18-gauge spinal needle topical localized placement the anterior superior portal was made. This was made just underneath the biceps tendon high the rotator interval. A small 5.75 mm cannula was then placed and the outflow was then done through this cannula. A diagnostic arthroscopy of the shoulder was then performed. The findings noted above. Great care was taken to probe superior labral complex as well as the biceps anchor. The biceps anchor was not firmly attached. She had significant tearing superior labrum. This extended both anterior and posterior of the biceps anchor. The intra- articular portion of long head of the biceps tendon did show significant tenosynovitis as well. At this point I proceeded with a biceps tenotomy. The biceps was tenotomized at its attachment on the supraglenoid tubercle. This was done utilizing the ArthroCare wand. I then proceeded to debride the torn loose tissue of the superior labrum. This was debrided anteriorly superiorly and posteriorly back to stable tissue. I then inspected the rotator cuff from intra-articular. She did have a full-thickness tear of the anterior aspect of the supraspinatus. This tear was debrided very gently from intra-articular utilizing synovial shaver. At this point in time no further work was deemed necessary from intra-articular. The arthroscope was removed from the glenohumeral joint and utilizing the same posterior skin incision was placed into the subacromial space. Next utilizing an 18-gauge spinal needle, topical localized placement. A lateral portal was made under direct visualization. A subacromial bursectomy was then performed utilizing synovial shaver as well as the ArthroCare wand. There was significant fraying of the undersurface of the coracoacromial ligament. This was then taken down utilizing the ArthroCare wand. This exposed underlying type 2 anterolateral acromial spur. I then proceed with an acromioplasty. Utilizing synovial shaver in a vanessa type fashion, the acromioplasty was completed. When the acromioplasty was complete, the arthroscope was placed into the lateral portal. The shaver placed posteriorly to ensure there was adequate coplanar with posterior aspect of the acromion. Then we proceeded with repair of the rotator cuff tear. I made a 4th portal off the anterolateral aspect of the acromion. Again, this was done after first localizing the placement with an 18-gauge spinal needle. The arthroscope remained in the lateral portal. She did have a full-thickness tear of the anterior leading edge of the supraspinatus. This was quite frayed as well. The tear measured approximately 1 cm x 1 cm. The footprint of the greater tuberosity was then debrided of all devitalized tissue utilizing synovial shaver as well as the ArthroCare wand. I then performed a light decortication of the greater tuberosity utilizing synovial shaver in a vanessa type fashion. This provided a nice bleeding surface with repair. I then placed a small microfracture holes along the articular margin to again enhance the healing of the repair. I then utilized ChatStat suture passer and placed Arthrex fiber tape suture in inverted horizontal mattress fashion. The suture was then shuttled out through the anterolateral portal. I then proceeded with placing the anchor. The awl was placed most anterolateral aspect of the footprint. This was just posterior to the bicipital groove. The suture was then shuttled through the anchor and the anchor placed after tensioning sutures appropriately. The anchor had an excellent purchase in bone. This brought the rotator cuff tear down very nicely. The most lateral aspect of the footprint. The FiberTape sutures were cut flush with the anchor. The repair was then probed. The rotator cuff had been repaired down very nicely to the most lateral aspect of the footprint. The repair was very secure. At this point time no further exam necessary. The shoulder was thoroughly irrigated and then drained outflow cannula. The arthroscopic equipment was removed from the shoulder. The arthroscopic portals were closed with 3-0 nylon interrupted suture. Sterile compressive dressing was then applied. The patient's left upper extremity was then placed into a standard sling. All sponge and needle counts were deemed correct prior to closure. The patient tolerated the procedure without apparent complication. She was transferred recovery room in stable condition. MMODL / IJN: [id number] /
== END 2017-07-05 15:36 | disposition home or self-care (01) ==
LOC: OR 10:30
PROVIDERS: ATTEND Orthopaedic Surgery Sports Medicine
DX: M75.122 Complete rotator cuff tear or rupture of left shoulder, not specified as traumatic (principal); S43.431A Superior glenoid labrum lesion of right shoulder, initial encounter; M75.82 Other shoulder lesions, left shoulder; Z87.891 Personal history of nicotine dependence; F32.9 Major depressive disorder, single episode, unspecified; J45.909 Unspecified asthma, uncomplicated; G40.909 Epilepsy, unspecified, not intractable, without status epilepticus; K21.9 Gastro-esophageal reflux disease without esophagitis; Z79.84 Long term (current) use of oral hypoglycemic drugs; Z79.1 Long term (current) use of non-steroidal anti-inflammatories (NSAID); Z79.899 Other long term (current) drug therapy; Z88.1 Allergy status to other antibiotic agents; Z88.5 Allergy status to narcotic agent; Z88.8 Allergy status to other drugs, medicaments and biological substances
CPT/HCPCS: 81025; 29826; 29827; C1713 ×2; J2250; J1100; J2405; J2001; J3010; J2795; J2370; J0330; J2704

== ENCOUNTER 2017-07-25 07:31 | Day surgery (SDC) | payer OTHER ==
[2017-07-18 17:59] VITALS: BMI 33.6
[2017-07-25] MEDS ORDERED: LACTATED RINGERS 1,000 ML IV ONE (07:46)
[2017-07-25 07:57] VITALS: TEMP 98
[2017-07-25] MEDS ORDERED: LACTATED RINGERS 1,000 ML IV SCH (09:00)
[2017-07-25] MEDS ORDERED: KETOROLAC 30 MG/ML 1 ML VIAL IVP STA (09:31)
--- NOTE | 2017-07-25 09:31 | P.PCN ---
Date of Procedure: 07/25/17 Surgeon: Jori Berman Pathology: none sent Condition: stable Disposition: PACU Description of Procedure: PREOPERATIVE DIAGNOSIS: Cervical spondylosis without myelopathy, cervicogenic headache. POSTOPERATIVE DIAGNOSIS: same PROCEDURES: Diagnostic bilateral C3-C4, C4-C5, C5-C6 medial branch block with fluoroscopic guidance ANESTHESIA: Local with 1% lidocaine; conscious sedation with Versed 4 mg and fentanyl 100 mcg EBL: Minimal PROCEDURE INDICATION: This is a patient with neck pain and headaches secondary to cervical arthropathy unresponsive to more conservative treatments. PROCEDURE DESCRIPTION / TECHNIQUE: The patient was seen and identified in the preoperative area. Risks, benefits, complications, and alternatives were discussed with the patient (including but not limited to incomplete pain relief , bleeding, infection, nerve damage, and allergies to medications), the patient agreed to proceed with the procedure and signed the consent after all questions were answered. IV was started. Vital signs remained stable throughout the procedure. Patient was taken to the OR and time out was completed. The patient was placed in the prone position on the procedure table. A pillow was placed under the patients chest to increase the cervical interlaminar space. The cervical area was prepped and draped in the usual sterile fashion. Critical pause was taken. Vital signs were closely monitored during the procedure. Conscious sedation was used during the procedure to decrease patients anxiety. Using cross-table lateral fluoroscopy, the centroid of the trapezoid of right C3 , was identified, marked, and localized with 1% lidocaine. Subsequently, a 22- g 3.5-inch spinal needle was advanced guided by fluoroscopy to the centroid of the trapezoid of C3. Needle tip position was confirmed at the centroid of the trapezoids of C3 with anteroposterior fluoroscopy. Subsequently, 1 ml of a combination of 10 mg Decadron and 5 ml of preservative-free Bupivacaine 0.5% was injected after negative aspiration for blood and CSF. Needle was then removed intact; the same procedure was repeated at the right C4 and C5 levels and then the left C3, C4, and C5 levels. COMPLICATIONS: No acute complications. COMMENTS: DISPOSITION / PLANS: The patient was placed in a supine position and transferred to the recovery area in a stable condition for observation and was discharged from the recovery room after meeting discharge criteria. Home discharge instructions given to the patient by the staff. The patient was reexamined prior to discharge and there were no issues. The patient will schedule a follow-up visit in clinic in 3-4 weeks to assess efficacy and discuss possible CESIs given MRI findings. Patient was very uncomfortable during this procedure; will consider strongly before scheduling again.
[2017-07-25] MEDS ORDERED: HYDROmorphone 2 MG/ML 1 ML SYRINGE IVP STA (10:21)
[2017-07-25 12:44] VITALS: RESP 18
--- NOTE | 2017-07-25 13:04 | FL ---
Fluoroscopy HISTORY: Pain 42 seconds fluoroscopy time supplied to the referring clinician. 4 intraoperative C-arm images docum ent the procedure. See dictated report from anesthesia.
[2017-07-25 13:11] VITALS: BP 125/86; PULSE 96
== END 2017-07-25 13:20 | disposition home or self-care (01) ==
LOC: ORPAIN 07:31
PROVIDERS: ATTEND Anesthesiology
DX: G89.29 Other chronic pain (principal); M47.812 Spondylosis without myelopathy or radiculopathy, cervical region; M51.26 Other intervertebral disc displacement, lumbar region; M51.36 Other intervertebral disc degeneration, lumbar region; Z88.1 Allergy status to other antibiotic agents; Z88.5 Allergy status to narcotic agent; Z88.8 Allergy status to other drugs, medicaments and biological substances; Z79.891 Long term (current) use of opiate analgesic; Z79.1 Long term (current) use of non-steroidal anti-inflammatories (NSAID); Z79.899 Other long term (current) drug therapy
CPT/HCPCS: 81025; 64490; 64491; 64492; J2250; J1170; J1100; J3010; J1885; 99152; 99153

== ENCOUNTER 2017-08-11 22:22 | Emergency (ER) | payer OTHER ==
[2017-08-12] MEDS ORDERED: ACETAMINOPHEN TAB 500 MG TAB PO STA (00:08)
[2017-08-12] MEDS ORDERED: methylPREDNISolone SOD SUCCI 125 MG/2 ML VIAL IM STA (00:08)
[2017-08-12] MEDS ORDERED: IBUPROFEN 600 MG TAB PO STA (00:08)
[2017-08-12] MEDS ORDERED: IPRATROPIUM-ALBUTEROL 3 ML NEB INHALATION STA (00:08)
--- NOTE | 2017-08-12 00:13 | ED ---
General Adult HPI - General Chief complaint: Shortness of Breath Stated complaint: Fever Time Seen by Provider: 08/12/17 00:00 Source: patient, family, RN notes reviewed Mode of arrival: ambulatory Limitations: no limitations - History of Present Illness Initial comments: 47-year-old female presents to the emergency department with a chief complaint of cough shortness of breath fever and chills. She states that she's been sick for about 2 days now. She's been doing her at home breathing treatments as well as resting with no improvement. She states that she does have some sputum production with cough. She states that she has not had a runny nose. They were concerned due to the continued cough despite the breathing treatments so she thought that she should be evaluated. Patient states she is not currently having any other symptoms at this time. Patient denies any recent chest pain, back pain, abdominal pain, nausea vomiting, numbness or tingling, dysuria or hematuria, constipation or diarrhea, headaches or visual changes, or any other current symptoms. - Related Data Home Medications Medication Instructions Recorded Confirmed Docusate Sodium [Dulcolax Stool 100 mg PO DAILY 03/03/14 07/18/17 Softener] HYDROcodone/APAP 10-325MG [[place] 1 tab PO TID PRN 03/03/14 07/18/17 10-325] Losartan [Cozaar] 50 mg PO DAILY 03/03/14 07/18/17 Citalopram Hydrobromide [CeleXA] 20 mg PO DAILY 04/03/14 07/18/17 Omeprazole [PriLOSEC] 20 mg PO BID 04/03/14 07/18/17 Gabapentin [Neurontin] 400 mg PO TID 10/12/14 07/18/17 clonazePAM [Clonazepam] 2 mg PO HS 10/12/14 07/18/17 Albuterol Inhaler [Ventolin 2 puff INHALATION QID PRN 11/23/14 07/18/17 Inhaler] Albuterol Nebulized [Ventolin 2.5 mg INHALATION QID PRN 11/23/14 07/18/17 Nebulized] Cyclobenzaprine [Flexeril] 10 mg PO TID PRN 02/02/15 07/18/17 Azelastine HCl [Optivar 0.05% 1 drop BOTH EYES DAILY 06/12/16 07/18/17 Ophth Soln] Fenofibrate 160 mg PO DAILY 06/12/16 07/18/17 Ibuprofen [Motrin] 800 mg PO BID 06/12/16 07/18/17 Montelukast Sodium [Singulair] 10 mg PO HS 06/12/16 07/18/17 OXcarbazepine [Oxtellar Xr] 900 mg PO HS 06/12/16 07/18/17 Oxybutynin Chloride [Ditropan] 5 mg PO BID 06/12/16 07/18/17 Prochlorperazine [Compazine] 10 mg PO TID PRN 06/12/16 07/18/17 Verapamil HCl [Verapamil ER] 120 mg PO DAILY 06/12/16 07/18/17 Cetirizine HCl 10 mg PO DAILY 05/01/17 07/18/17 Previous Rx's Medication Instructions Recorded Doxycycline Hyclate 100 mg PO BID #10 tab 07/05/17 Albuterol Inhaler [Ventolin Hfa 1 - 2 puff INHALATION Q4-6H PRN #1 08/12/17 Inhaler] inhaler Levofloxacin [Levaquin] 750 mg PO DAILY #7 tab 08/12/17 predniSONE 50 mg PO DAILY #5 tab 08/12/17 Allergies Allergy/AdvReac Type Severity Reaction Status Date / Time azithromycin Allergy Swelling Verified 08/11/17 22:44 [From Zithromax Z-Brayden] ondansetron HCl Allergy Unknown, Verified 08/11/17 22:44 [From Zofran (as ONLY IN A hydrochloride)] PILL FORM IS IT A PROBLEM morphine AdvReac Vomiting Verified 08/11/17 22:44 Review of Systems ROS Statement: Those systems with pertinent positive or pertinent negative responses have been documented in the HPI. ROS Other: All systems not noted in ROS Statement are negative. Past Medical History Past Medical History: Asthma, Diabetes Mellitus, GERD/Reflux, Hyperlipidemia, Hypertension, Memory Impairment, Musculoskeletal Disorder, Seizure Disorder Additional Past Medical History / Comment(s): Migraines. HX kidney stones. HX TYPE 2 DM-OFF RX NOW. LAST SEIZURE 12/2016. RT SHOULDER TORN ROTATOR CUFF. BONE SPURS RT SIDE NECK,fx. tailbone, colitis, NARCOLEPSY. History of Any Multi-Drug Resistant Organisms: None Reported Past Surgical History: Appendectomy, Bowel Resection, Cholecystectomy, Heart Catheterization, Tubal Ligation, Uterine Ablation Additional Past Surgical History / Comment(s): CYST REMOVED FROM RIGHT WRIST, pain clinic procedures Past Anesthesia/Blood Transfusion Reactions: No Reported Reaction Type of Cardiac Device: Loop Device Placement Date:: MAR 2009 AND 2013 Past Psychological History: Anxiety Smoking Status: Former smoker Past Alcohol Use History: None Reported Past Drug Use History: None Reported - Past Family History Father Family Medical History: Cancer General Exam Limitations: no limitations General appearance: alert, in no apparent distress Head exam: Present: atraumatic, normocephalic, normal inspection Eye exam: Present: normal appearance, PERRL, EOMI. Absent: scleral icterus, conjunctival injection, periorbital swelling ENT exam: Present: normal exam, mucous membranes moist Neck exam: Present: normal inspection. Absent: tenderness, meningismus, lymphadenopathy Respiratory exam: Present: wheezes, decreased breath sounds. Absent: rales, rhonchi, stridor, chest wall tenderness, accessory muscle use Cardiovascular Exam: Present: regular rate, normal rhythm, normal heart sounds. Absent: systolic murmur, diastolic murmur, rubs, gallop, clicks Extremities exam: Present: normal inspection, full ROM, normal capillary refill. Absent: tenderness, pedal edema, joint swelling, calf tenderness Neurological exam: Present: alert, oriented X3 Psychiatric exam: Present: normal affect, normal mood Skin exam: Present: warm, dry, intact, normal color. Absent: rash Course Vital Signs 08/11/17 08/12/17 08/12/17 22:39 00:24 00:30 Temperature 98.5 F Pulse Rate 118 H 88 88 Respiratory 24 Rate Blood Pressure 138/91 O2 Sat by Pulse 100 Oximetry Medical Decision Making - Medical Decision Making 47-year-old female presents to the emergency department with a chief complaint of cough and shortness of breath with a history of asthma. At this time patient 's chest x-ray is positive for pneumonia. This time patient is also positive for influenza. She is out of the treatment window for Tamiflu. Due to her history of asthma we will continue inhaler steroids as well as antibiotics. We discussed close follow-up with her doctor we discussed return parameters all questions. Patient stated that she understood and she is agreement this plan. At this time she will be discharged. - Lab Data Lab Results 08/12/17 Range/Units 00:18 Influenza Type A RNA Detected H (Not Detectd) Influenza Type B (PCR) Not Detected (Not Detectd) - Radiology Data Radiology results: report reviewed, image reviewed Disposition Clinical Impression: Influenza A, Left lower lobe pneumonia, Asthma exacerbation Disposition: HOME SELF-CARE Condition: Stable Instructions: Asthma (ED), Bacterial Pneumonia (ED) Additional Instructions: Please use medication as discussed. Please follow up with family doctor if symptoms have not improved over the next two days. Please return to the emergency room if your symptoms increase or worsen or for any other concerns. Prescriptions: Albuterol Inhaler [Ventolin Hfa Inhaler] 1 - 2 puff INHALATION Q4-6H PRN #1 inhaler PRN Reason: Cough Levofloxacin [Levaquin] 750 mg PO DAILY #7 tab predniSONE 50 mg PO DAILY #5 tab Referrals: Mateo Govea MD [Primary Care Provider] - 1-2 days Time of Disposition: 01:32
--- NOTE | 2017-08-12 00:41 | XR ---
EXAMINATION TYPE: XR chest 2V DATE OF EXAM: 08/12/2017 COMPARISON: 10/23/2016 HISTORY: Cough TECHNIQUE: Frontal and lateral views of the chest are obtained. FINDINGS: Heart and mediastinum are normal. There is a small linear density in the left lower lobe. The other lung capone are clear. Pulmonary vascularity is normal. Diaphragm is normal. Bony thorax is intact. IMPRESSION: There is a new minimal infiltrate in the left lower lobe compared to old exam. Normal he art.
[2017-08-12] MEDS ORDERED: LEVOFLOXACIN 750 MG TAB PO STA (00:58)
[2017-08-12 01:51] VITALS: BP 142/87; PULSE 112; RESP 19; TEMP 99.1
== END 2017-08-12 01:52 | disposition home or self-care (01) ==
LOC: EC 22:22
DX: J45.901 Unspecified asthma with (acute) exacerbation (principal); J10.08 Influenza due to other identified influenza virus with other specified pneumonia; J18.1 Lobar pneumonia, unspecified organism; E78.5 Hyperlipidemia, unspecified; I10 Essential (primary) hypertension; K21.9 Gastro-esophageal reflux disease without esophagitis; G40.909 Epilepsy, unspecified, not intractable, without status epilepticus; F41.9 Anxiety disorder, unspecified; Z87.891 Personal history of nicotine dependence; Z79.1 Long term (current) use of non-steroidal anti-inflammatories (NSAID); Z79.899 Other long term (current) drug therapy; Z88.1 Allergy status to other antibiotic agents; Z88.5 Allergy status to narcotic agent; Z88.8 Allergy status to other drugs, medicaments and biological substances; Z87.39 Personal history of other diseases of the musculoskeletal system and connective tissue
CPT/HCPCS: 94640; 87502; 71046; 99285; 96372; J2930

== ENCOUNTER → 2017-09-19 | Outpatient (CLI) | payer OTHER ==
[2017-09-19 11:51] VITALS: BP 124/82; PULSE 106; RESP 16
--- NOTE | 2017-09-19 12:18 | P.PN ---
Subjective Progress Note Date: 09/19/17 This is follow-up visit for this patient with a history of severe and chronic neck pain , and headache she is diagnosed with cervical spondylosis with facet arthropathy, and cervical degenerative disc disease ,we have done diagnostic medial branch block cervical area patient get more than 50% decrease in her neck pain Patient denies any motor or sensory deficit , patient denies any fever or night sweats, denies any change in the bowel movements or urination Physical Examinations : 1-Constitutiona : Cooperative , not in acute distress . 2-HEENT : nech ; supple , no Lymphadenopathy , no Thyromegaly , normal thyroid size . eyes : no ptosis , no icterus, no photophobia . ENT : normal of hearing , normal oropharynx , no Thrush . 3- Respiratory : Chest clear to auscultations Bilaterally , no wheezing , no Rhonchi . 4- Cardiovascular : regular rate and rhythem , S1 , S2 , no S3 , no S4. 5- Gastrointestinal : abdomen soft no tenderness , bowel sounds positive all four quadrents , no organomegally . 6- Genitourinary : Defferred . 7- neurologic : Cranial nerve II to XII intact , no focal neurological deffecit . 8-psychatric : alert , oriented X 3 , appropriate affect , intact judgment and insight . 9-Lymphatic : no Lymphadenopathy . 10- musculoskeltal : exams of the cervical spine = motor strength normal bilateral upper extremities facet loading test cervical area positive. exams of the Lumber spine = motor strength lower extremities ,thigh and legs .5/5 t , and Left side Assessment and plan = Chronic neck pain secondary to cervical degenerative disc disease and cervical spondylosis patient had a good result after diagnostic medial branch block cervical area done 1 time l , patient will be scheduled to have another the classic "branch block and if she had a good result then she would be a good candidate to have radiofrequency ablation of the medial branch cervical area - diagnoses, prognosis, and treatment options including but not limited to physical therapy, surgical interventions, interventional therapies , and medication management including narcotics and adjuvant medication were discussed with the patient and all the questions answered Objective - Vital Signs Vital signs: Vital Signs Temp Pulse 106 H 09/19/17 11:38 Resp 16 09/19/17 11:38 BP 124/82 09/19/17 11:38 Pulse Ox 96 09/19/17 11:38 Intake & Output 09/18/17 09/19/17 09/19/17 18:59 06:59 18:59 Weight 83.915 kg
== END | disposition home or self-care (01) ==
LOC: PNWHC3 11:29
PROVIDERS: ATTEND Specialist
DX: G89.29 Other chronic pain (principal); M50.30 Other cervical disc degeneration, unspecified cervical region; M47.812 Spondylosis without myelopathy or radiculopathy, cervical region
CPT/HCPCS: 99211

== ENCOUNTER 2017-10-22 08:36 | Day surgery (SDC) | payer OTHER ==
[2017-10-22 10:26] VITALS: TEMP 97.6
[2017-10-22] MEDS: LACTATED RINGERS 1,000 ML IV SCH ×2 (10:29→10:44)
[2017-10-22] MEDS ORDERED: LIDOCAINE 1% 20 ML VIAL (10MG/ML) FOR IV START INTRADERMA ONE (10:29)
[2017-10-22] MEDS ORDERED: KETOROLAC 30 MG/ML 1 ML VIAL IVP STA (11:32)
--- NOTE | 2017-10-22 11:32 | P.PCN ---
Date of Procedure: 10/22/17 Procedure(s) Performed: PREOPERATIVE DIAGNOSIS: Cervical Spondylosis with Facet Arthropathy.without myelopathy. 2-cervicogenic headache POSTOPERATIVE DIAGNOSIS: Cervical Spondylosis Facet Arthropathy. Without myelopathy. 2-cervicogenic headache PROCEDURES: Diagnostic bilateral C3 , C4 , , C5 , medial branch blocks, with fluoroscopic guidance ANESTHESIA: Local with 1% lidocaine; moderate sedation with Versed. 4 mg , and fentanyl 100 micrograms EBL: Minimal PROCEDURE INDICATION: The patient with neck pain secondary to cervical arthropathy unresponsive to more conservative treatments. PROCEDURE DESCRIPTION / TECHNIQUE: The patient was seen and identified in the preoperative area. Risks, benefits, complications, and alternatives were discussed with the patient, the patient agreed to proceed with the procedure and signed the consent. IV was started. Vital signs remained stable throughout the procedure. Patient was taken to the OR and time out was completed. The patient was placed in the left lateral position on the procedure table ( because and was able to see only the C2 C3 vertebra in the prone and lateral position for this reason we did the procedure in the lateral position ).. The cervical area was prepped and draped in the usual sterile fashion. Critical pause was taken. Vital signs were closely monitored during the procedure. Conscious sedation was used during the procedure to decrease patients anxiety. Using cross-table lateral fluoroscopy, the centroid of the trapezoid of right C3 , C4 , C5, was identified, marked, and localized with 1% lidocaine 1 ml at each level for skin and Sub Q infiltrations . Subsequently, a 22 G 3 spinal needle was advanced guided by fluoroscopy to the centroid of the trapezoid of Right C3, C4 , C5, . Marcell tip position was confirmed at the centroid of the trapezoids of Right C3 , C4 , C5 , with anteroposterior fluoroscopy. Subsequently, 2 ml of preservative-free Bupivacaine 0.5% mixed with Dexamethasone 10 mg and half ml of the mixture was injected after negative aspiration for blood and CSF. Marcell was then removed intact the same procedure was repeated at the left C3, C4, ,C5 levels. COMPLICATIONS: No acute complications DISPOSITION / PLANS: The patient was placed in a supine position and transferred to the recovery area in a stable condition for observation and was discharged from the recovery room after meeting discharge criteria. Home discharge instructions given to the patient by the staff. The patient was reexamined prior to discharge. The patient will schedule a follow up in the clinic in 2-4 weeks. I recommend the procedure in the future to be done in the lateral position
--- NOTE | 2017-10-22 11:35 | FL ---
EXAMINATION TYPE: FL guided pain mgmt statistic DATE OF EXAM: 10/22/2017 HISTORY: Flouroscopy time 1 minute and 4 seconds of fluoroscopy provided. IMPRESSION: 1. Fluoroscopy time.
[2017-10-22] MEDS ORDERED: IV FLUID CONTINUATION 600 ML IV ONE (11:40)
[2017-10-22 11:48] LABS: Glucose,Whole Blood 83 mg/dL (75-99)
[2017-10-22 12:09] VITALS: RESP 16
[2017-10-22 12:47] VITALS: BP 108/74; PULSE 76
== END 2017-10-22 12:49 | disposition home or self-care (01) ==
LOC: ORPAIN 08:36
PROVIDERS: ATTEND Specialist
DX: M47.812 Spondylosis without myelopathy or radiculopathy, cervical region (principal); R51 Headache; I10 Essential (primary) hypertension; J45.909 Unspecified asthma, uncomplicated; K21.9 Gastro-esophageal reflux disease without esophagitis; E11.9 Type 2 diabetes mellitus without complications; Z88.5 Allergy status to narcotic agent; Z88.1 Allergy status to other antibiotic agents; Z88.8 Allergy status to other drugs, medicaments and biological substances; G40.909 Epilepsy, unspecified, not intractable, without status epilepticus; G47.419 Narcolepsy without cataplexy
CPT/HCPCS: 81025; 64490; 64491; J2250; J3301; J3010; J1885; 99152; 99153

== ENCOUNTER → 2017-11-15 | Outpatient (CLI) | payer OTHER ==
[~2017-11-15] MED LIST changes: -DEXAMETHASONE SOD PHOSPHATE 10 MG/ML 1 ML VIAL IV ONE; -HYDROmorphone 0.5 MG/0.5 ML SYRINGE IVP PRN; -LIDOCAINE 1% 20 ML VIAL (10MG/ML) FOR IV START INTRADERMA PRN; -MIDAZOLAM 2 MG/2 ML VIAL IV PRN; -ONDANSETRON 4 MG/2 ML VIAL IVP ONE; -Pre Op ABX Message 1 EACH MISC MISCELLANE ONE; -SCOPOLAMINE 1.5MG/72HR PATCH TRANSDERM ONE
--- NOTE | 2017-11-15 10:19 | P.PCN ---
Date of Procedure: 11/15/17 Surgeon: Aaron Barroso Description of Procedure: Procedure(s) Performed: PREOPERATIVE DIAGNOSIS: 1. Lumbar Spondylosis with Facet Arthropathy without myelopathy. 2-. Lumber degenerative disc disease POSTOPERATIVE DIAGNOSIS: 1. Lumbar Spondylosis with Facet Arthropathy without myelopathy. 2-. Lumber degenerative disc disease PROCEDURES: Left Radiofrequency thermocoagulation, L4,L5, Sacral Ala medial branch, with fluoroscopic guidance SURGEON: Aaron Barroso MD. ANESTHESIA: Moderate sedation with intravenous versed 2 mg and fentanyl 100 mcg and local infiltration with lidocaine 1% 10 mL EBL: Minimal PROCEDURE INDICATION: The patient with low back pain secondary to lumbar facet arthropathy who had more than 50% relief of pain with previous diagnostic lumbar medial branch block with bupivacaine. She has had these procedures performed in the past and reported excellent relief for low back pain from them. PROCEDURE DESCRIPTION / TECHNIQUE: The patient was seen and identified in the preoperative area. Risks, benefits, complications, including but not limited to risk of infection ,bleeding , allergic reactions to the medications and no complete pain releife , and alternatives were discussed with the patient, the patient agreed to proceed with the procedure and signed the consent. IV was started. The operative site was marked. Patient was taken to the OR and time out was completed. The patient was placed in the prone position on the procedure table. The lumber area was prepped and draped in the usual sterile fashion. . Vital signs were closely monitored during the procedure .IV sedation was used during the procedure to decrease patients anxiety. Using AP and then oblique fluoroscopy, the ``eye of the Stuart dog corresponding to the connection between the superior and transverse articular processes of the above-mentioned levels were identified, marked, and localized with 1% lidocaine. Subsequently, a [id number] radiofrequency cannula with a 10-mm active tip was advanced guided by fluoroscopy to each of the ``eyes of the Stuart dog at each site then underwent sensory testing at 50 Hz and 0 to 1 volt and motor testing at 2.5 Hz and 0 to 3 volt with local stimulation, but no radicular symptoms down the legs. Then the sites underwent radiofrequency thermocoagulation at 80 degrees celsius for 90 seconds after injecting 0.5 ml of PF lidocaine 1%. then After the thermocoagulation done , 1 ml of the block solution containing depomedrol 40 mg and 4 ml of maraine 0.5 % was injected at each levels after negative aspiration of CSF and blood and with no paresthesias. Cannulas were retracted while injecting lidocaine 1% until the needle is out.. At the end of the procedure, the skin was cleansed and bandages were applied. COMPLICATIONS: No acute complications. DISPOSITION / PLANS: The patient was placed in a supine position and transferred to the recovery area in a stable condition for observation and was discharged from the recovery room after meeting discharge criteria. Home discharge instructions given to the patient by the staff. The patient was reexamined prior to discharge. She will follow-up in the near future for right lumbar radio frequency ablation..
[2017-11-15 11:55] VITALS: BP 120/81; PULSE 99; RESP 16
--- NOTE | 2017-11-15 12:12 | P.PAINPG ---
Subjective Progress Note Date: 11/15/17 Principal diagnosis: Cervical spondylosis This is a very pleasant 47-year-old woman with a history of chronic neck pain. She is undergone bilateral cervical medial branch nerve blocks in the past. She reports that these relieved her pain by nearly 100% for partially 2 weeks. She currently complains of bad pain on the right side of her cervical spine. She also reports having numbness in her shoulder down approximately her elbow. It is noteworthy that she has had bilateral shoulder surgery recently. She denies any numbness down into her hands or any weakness in her hands. Objective - Vital Signs Vital signs: Vital Signs Temp Pulse 99 11/15/17 11:47 Resp 16 11/15/17 11:47 BP 120/81 11/15/17 11:47 Pulse Ox 97 11/15/17 11:47 Intake & Output 11/14/17 11/15/17 11/15/17 18:59 06:59 18:59 Weight 77.111 kg - Exam General: The patient is alert and oriented. Patient is not sedated Patient is a question appropriately. Cardiac: Heart is regular in rate and rhythm Respiratory: Clear to auscultation. No audible wheezes. Abdomen: Soft nontender nondistended. Upper extremities: Strength is normal bilaterally. Sensation is normal bilaterally. Reflexes are preserved and symmetric bilaterally. Cervical facet loading maneuvers are positive bilaterally Assessment and Plan Plan: Plan of Care 1. Medications: Patient is not currently receiving any medications from our clinic. 2. Interventions: We'll schedule her for radio frequency ablation at the right C3, right C4, right C5 levels. 3. Referrals: None 4. Testing: None 5. Psychological: She denies significant anxiety or depression today. PQRS Measure Charge Sheet Measure #130: Documentation of Current Meds in Medical Chart: Patient's medications documented in chart Measure #226: Tobacco Use: Screen & Cessation Intervention: Pt not a tobacco user Measure #111: Pneumonia Vaccination: Pneumococcal vaccine NOT administered or previously given Measure #47: Advance Care Plan: Advance care planning discussed & documented, pt chose/unable to give Measure #412: Opioid Treatment Agreement: No documentation of signed opioid treatment agreement Measure #408: Opioid Therapy Follow-up Evaluation: Patient had NO f/u eval minimum every 3 months during opioid therapy Measure #317: Preventitive Care & Scrn High Bld Press & F/U: Normal blood pressure, f/u not required Measure #128: Body Mass Index (BMI) Screening & Follow-up: BMI documented ABOVE normal parameters - f/u documented Measure #131: Pain Assessment & Follow-up: Pain positive & plan documented Measure #431: Unhealthy Alcohol Use Preventative Care & Scrn: Patient not identified as an unhealthy alcohol user PQRS Narrative: Smoking Status Former smoker Do You Want the Pneumonia No Vaccine AT THIS TIME? Blood Pressure 120/81 Pain Intensity [Posterior Neck 8 ] Scale Used Numeric (1 - 10) Hx Alcohol Use (MH) No Home Medications: Ambulatory Orders Docusate Sodium [Dulcolax Stool Softener] 100 mg PO DAILY 03/03/14 HYDROcodone/APAP 10-325MG [[place] 10-325] 1 tab PO TID PRN 03/03/14 Losartan [Cozaar] 50 mg PO QAM 03/03/14 Citalopram Hydrobromide [CeleXA] 20 mg PO QAM 04/03/14 Omeprazole [PriLOSEC] 20 mg PO BID 04/03/14 Gabapentin [Neurontin] 400 mg PO TID 10/12/14 clonazePAM [Clonazepam] 2 mg PO HS 10/12/14 Albuterol Inhaler [Ventolin Inhaler] 2 puff INHALATION QID PRN 11/23/14 Albuterol Nebulized [Ventolin Nebulized] 2.5 mg INHALATION QID PRN 11/23/14 Cyclobenzaprine [Flexeril] 10 mg PO TID PRN 02/02/15 Azelastine HCl [Optivar 0.05% Ophth Soln] 1 drop BOTH EYES DAILY 06/12/16 Fenofibrate 160 mg PO HS 06/12/16 Ibuprofen [Motrin] 800 mg PO BID PRN 06/12/16 Montelukast Sodium [Singulair] 10 mg PO HS 06/12/16 OXcarbazepine [Oxtellar Xr] 900 mg PO HS 06/12/16 Oxybutynin Chloride [Ditropan] 5 mg PO BID 06/12/16 Prochlorperazine [Compazine] 10 mg PO TID PRN 06/12/16 Verapamil HCl [Verapamil ER] 120 mg PO QAM 06/12/16 Cetirizine HCl 10 mg PO DAILY 05/01/17 Controlled Substance Measures - Controlled Substance Measures Is patient prescribed a controlled substance at discharge?: No
== END | disposition home or self-care (01) ==
LOC: PNWHC3 11:29
PROVIDERS: ATTEND Pain Medicine Pain Medicine
DX: G89.29 Other chronic pain (principal); M54.2 Cervicalgia; Z87.891 Personal history of nicotine dependence; Z79.899 Other long term (current) drug therapy; Z79.891 Long term (current) use of opiate analgesic; Z79.1 Long term (current) use of non-steroidal anti-inflammatories (NSAID)
CPT/HCPCS: 99211

== ENCOUNTER 2017-12-12 07:50 | Day surgery (SDC) | payer OTHER ==
[2017-12-07 15:23] VITALS: BMI 32.5
[2017-12-12 08:09] VITALS: RESP 16; TEMP 98.1
[2017-12-12 08:16] LABS: Glucose,Whole Blood 83 mg/dL (75-99)
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
[2017-12-12] MEDS ORDERED: KETOROLAC 30 MG/ML 1 ML VIAL IVP STA (09:16)
--- NOTE | 2017-12-12 09:23 | FL ---
EXAMINATION TYPE: [place] guided pain mgmt statistic DATE OF EXAM: 12/12/2017 HISTORY: Flouroscopy time 7 seconds of fluoroscopy provided. IMPRESSION: 1. Fluoroscopy time.
[2017-12-12 10:26] VITALS: BP 126/82; PULSE 96
[2017-12-12] MEDS ORDERED: IV FLUID CONTINUATION 1,000 ML IV ONE (10:28)
== END 2017-12-12 10:32 | disposition home or self-care (01) ==
LOC: ORPAIN 07:50
PROVIDERS: ATTEND Pain Medicine Pain Medicine
DX: M47.812 Spondylosis without myelopathy or radiculopathy, cervical region (principal); Z88.5 Allergy status to narcotic agent; Z88.8 Allergy status to other drugs, medicaments and biological substances
CPT/HCPCS: 81025; 64633; 64634; J2250; J1030; J2001; J3010; J1885; 99152

== ENCOUNTER 2017-12-24 06:45 | Day surgery (SDC) | payer OTHER ==
[2017-12-19 13:12] VITALS: BMI 32.1
[2017-12-24 07:58] VITALS: RESP 16; TEMP 97.7
[2017-12-24] MEDS ORDERED: LIDOCAINE 1% 20 ML VIAL (10MG/ML) FOR IV START INTRADERMA ONE (07:58)
[2017-12-24 08:01] LABS: Glucose,Whole Blood 87 mg/dL (75-99)
--- NOTE | 2017-12-24 08:39 | P.PCN ---
Date of Procedure: 12/24/17 Procedure(s) Performed: PREOPERATIVE DIAGNOSIS: Cervical spondylosis with Facet Arthropathy without myelopathy. POSTOPERATIVE DIAGNOSIS: Cervical spondylosis with Facet Arthropathy without myelopathy. PROCEDURES: Radiofrequency thermocoagulation left C3, C4, C5, medial branch with Fluroscopy Guidence ANESTHESIA: Local with 1% lidocaine 4 ml , moderate sedation with fentanyl 100 micrograms and Versed 2 mg EBL: Minimal PROCEDURE INDICATION: The patient with neck pain secondary to cervical arthropathy who had more than 50% relief of her pain with previous diagnostic cervical medial branch block. PROCEDURE DESCRIPTION / TECHNIQUE: The patient was seen and identified in the preoperative area. Risks, benefits, complications, and alternatives were discussed with the patient, the patient agreed to proceed with the procedure and signed the consent. IV was started. Vital signs remained stable throughout the procedure. Patient was taken to the OR and time out was completed. The patient was placed in the prone position on the procedure table. A pillow was placed under the patients chest to increase the cervical interlaminar space. The cervical area was prepped and draped in the usual sterile fashion. Critical pause was taken. Vital signs were closely monitored during the procedure. Conscious sedation was used during the procedure to decrease patients anxiety. Using cross-table lateral fluoroscopy, the centroid of the trapezoid of left C3 , C4, C5, were identified, marked, and localized with 1% lidocaine. Subsequently, a 20 -ai radiofrequency cannula with a 10-mm active tip was advanced guided by fluoroscopy to the centroid of the trapezoid of the left C3, C4, C5, Needle tip position was confirmed at the centroid of the trapezoids of left C3, C4, C5, with anteroposterior fluoroscopy. Each site then underwent sensory testing at 50 Hz and 0 to 1 volt and motor testing at 2 Hz and 0 to 3 volt with local stimulation, but no radicular symptoms down the arm. Thereafter the left C3, C4,C5 sites underwent radiofrequency thermocoagulation at 80 degrees celsius for 90 seconds after injecting 0.5 ml of PF lidocaine 1% . After thermocoagulation, 1 ml of the block solution containing Kenalog 40 mg and 5 mL of preservative-free normal saline was injected at the left C3, C4, C5 levels after negative aspiration of CSF and blood and with no paresthesias. Cannulas were retracted while injecting lidocaine 1% until the needle is out. Skin was cleansed and bandages were applied. COMPLICATIONS: No acute complications. DISPOSITION / PLANS: The patient was placed in a supine position and transferred to the recovery area in a stable condition for observation and was discharged from the recovery room after meeting discharge criteria. Home discharge instructions given to the patient by the staff. The patient was reexamined prior to discharge. The patient will schedule a follow up in the clinic in 2-4 weeks.
[2017-12-24] MEDS ORDERED: KETOROLAC 30 MG/ML 1 ML VIAL IVP STA (08:40)
[2017-12-24] MEDS ORDERED: IV FLUID CONTINUATION 1,000 ML IV ONE (08:47)
--- NOTE | 2017-12-24 08:55 | FL ---
EXAMINATION TYPE: FL guided pain mgmt statistic DATE OF EXAM: 12/24/2017 HISTORY: Flouroscopy time 18 seconds of fluoroscopy provided. IMPRESSION: 1. Fluoroscopy time.
[2017-12-24] MEDS ORDERED: fentaNYL (PF) 50 MCG/ML 2 ML AMP IVP ONE (09:37)
[2017-12-24 10:35] VITALS: BP 111/76; PULSE 80
== END 2017-12-24 10:47 | disposition home or self-care (01) ==
LOC: ORPAIN 06:45
PROVIDERS: ATTEND Specialist
DX: M47.812 Spondylosis without myelopathy or radiculopathy, cervical region (principal); I10 Essential (primary) hypertension; J45.909 Unspecified asthma, uncomplicated; E11.9 Type 2 diabetes mellitus without complications; Z88.1 Allergy status to other antibiotic agents; Z88.5 Allergy status to narcotic agent; Z88.8 Allergy status to other drugs, medicaments and biological substances
CPT/HCPCS: 64633; 64634 ×2; J2250; J3301; J3010; J1885; 99152; 99153

== ENCOUNTER 2017-12-29 19:28 | Emergency (ER) | payer OTHER ==
[2017-12-29 20:36] VITALS: TEMP 98.2
[2017-12-29] MEDS ORDERED: KETOROLAC 30 MG/ML 1 ML VIAL IVP STA (20:42)
[2017-12-29] MEDS ORDERED: METHOCARBAMOL 500 MG TAB PO STA (20:42)
[2017-12-29] MEDS ORDERED: MORPHINE SULFATE 2 MG/ML SYRINGE IV STA (20:42)
[2017-12-29] MEDS ORDERED: SODIUM CHLORIDE 0.9% 1,000 ML IV STA (20:42)
[2017-12-29] MEDS ORDERED: LIDOCAINE 5% PATCH TOPICAL STA (20:43)
[2017-12-29] MEDS ORDERED: methylPREDNISolone SOD SUCCI 125 MG/2 ML VIAL IV STA (20:43)
--- NOTE | 2017-12-29 20:46 | ED ---
Neck Injury/Pain HPI - General Chief Complaint: Neck Pain/Injury Stated Complaint: Neck swelling Time Seen by Provider: 12/29/17 20:24 Mode of arrival: ambulatory Limitations: no limitations - History of Present Illness Initial Comments: Patient is a 47-year-old female presenting for right shoulder and neck pain. She states that she had a procedure done on December 24 and she "had some nerves burned" and that she has been having progressively worsening pain since then. She tried ice which did not help the symptoms and she called the anesthesia business applications specialist and was told to continue treatment with [id number] medications. She denies any numbness and tingling in the arm - Related Data Home Medications Medication Instructions Recorded Confirmed Docusate Sodium [Dulcolax Stool 100 mg PO DAILY 03/03/14 12/24/17 Softener] HYDROcodone/APAP 10-325MG [[place] 1 tab PO TID PRN 03/03/14 12/24/17 10-325] Losartan [Cozaar] 50 mg PO QAM 03/03/14 12/24/17 Citalopram Hydrobromide [CeleXA] 20 mg PO QAM 04/03/14 12/24/17 Omeprazole [PriLOSEC] 20 mg PO BID 04/03/14 12/24/17 Gabapentin [Neurontin] 400 mg PO TID 10/12/14 12/24/17 clonazePAM [Clonazepam] 2 mg PO HS 10/12/14 12/24/17 Albuterol Inhaler [Ventolin 2 puff INHALATION QID PRN 11/23/14 12/24/17 Inhaler] Albuterol Nebulized [Ventolin 2.5 mg INHALATION QID PRN 11/23/14 12/24/17 Nebulized] Cyclobenzaprine [Flexeril] 10 mg PO TID PRN 02/02/15 12/24/17 Azelastine HCl [Optivar 0.05% 1 drop BOTH EYES DAILY 06/12/16 12/24/17 Julio Jacques] Fenofibrate 160 mg PO HS 06/12/16 12/24/17 Ibuprofen [Motrin] 800 mg PO BID PRN 06/12/16 12/24/17 Montelukast Sodium [Singulair] 10 mg PO HS 06/12/16 12/24/17 OXcarbazepine [Oxtellar Xr] 900 mg PO HS 06/12/16 12/24/17 Oxybutynin Chloride [Ditropan] 5 mg PO BID 06/12/16 12/24/17 Prochlorperazine [Compazine] 10 mg PO TID PRN 06/12/16 12/24/17 Verapamil HCl [Verapamil ER] 120 mg PO QAM 06/12/16 12/24/17 Cetirizine HCl 10 mg PO DAILY 05/01/17 12/24/17 Previous Rx's Medication Instructions Recorded oxyCODONE-APAP 7.5-325MG [Percocet 1 tab PO Q6HR PRN 3 Days #12 tab 12/30/17 7.5-325 mg] Allergies Allergy/AdvReac Type Severity Reaction Status Date / Time azithromycin Allergy Swelling Verified 12/29/17 20:03 [From Zithromax Z-Brayden] ondansetron HCl Allergy Unknown, Verified 12/29/17 20:03 [From Zofran (as ONLY IN A hydrochloride)] PILL FORM IS IT A PROBLEM morphine AdvReac Vomiting Verified 12/29/17 20:03 Review of Systems ROS Statement: Those systems with pertinent positive or pertinent negative responses have been documented in the HPI. Constitutional: Negative for chills, fatigue and fever. HENT: Negative for congestion. Respiratory: Negative for chest tightness, shortness of breath and wheezing. Negative for cough Cardiovascular: Negative for chest pain and palpitations. Gastrointestinal: Negative for abdominal pain. Negative for abdominal distention , diarrhea, nausea and vomiting. Genitourinary: Negative for dysuria. Musculoskeletal: Negative for back pain, positive for neck pain and neck stiffness. Skin: Negative for color change. Neurological: Negative for dizziness, speech difficulty, weakness and light- headedness. Psychiatric/Behavioral: Negative for agitation and confusion. Negative for anxiety ROS Other: All systems not noted in ROS Statement are negative. Past Medical History Past Medical History: Asthma, Diabetes Mellitus, GERD/Reflux, Hyperlipidemia, Hypertension, Memory Impairment, Seizure Disorder Additional Past Medical History / Comment(s): Migraines. HX kidney stones. diabetic-OFF RX NOW-diet control. LAST SEIZURE 11/23/17. BONE SPURS RT SIDE NECK, hx shattered tailbone, episodes of 'black outs" -cause unknown, NARCOLEPSY. 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, diverticulitis and colitia History of Any Multi-Drug Resistant Organisms: None Reported Past Surgical History: Appendectomy, Bowel Resection, Cholecystectomy, Heart Catheterization, Hysterectomy, Tubal Ligation, Uterine Ablation Additional Past Surgical History / Comment(s): CYST REMOVED FROM RIGHT WRIST, pain clinic procedures Past Anesthesia/Blood Transfusion Reactions: Motion Sickness Type of Cardiac Device: Loop Device Placement Date:: MAR 2009 AND 2013 Past Psychological History: Depression Smoking Status: Former smoker - Past Family History Mother Family Medical History: No Reported History Father Family Medical History: Cancer General Exam - General Exam Comments Initial Comments: Constitutional: Pt is oriented to person, place, and time. Pt appears well- developed and well-nourished. No distress. HENT: Head: Normocephalic and atraumatic. Eyes: EOM are normal. Neck: Normal range of motion. Neck supple. Cardiovascular: Normal rate, regular rhythm, S1 normal, S2 normal and normal heart sounds. Exam reveals no gallop and no friction rub. No murmur heard. Pulmonary/Chest: Effort normal and breath sounds normal. No tachypnea and no bradypnea. No respiratory distress. No wheezes or rales noted. Abdominal: Soft. Bowel sounds are normal. Pt exhibits no shifting dullness, no distension, no pulsatile liver, no fluid wave, no abdominal bruit and no ascites. There is no tenderness. There is no rigidity, no rebound, no guarding, no tenderness at McBurney's point and negative White's sign. Musculoskeletal: Decreased range of motion in rotation of the neck. Mild soft tissue effusion on the right trapezius. No evidence of cellulitis. Neurological: Pt is alert and oriented to person, place, and time. No cranial nerve deficit. Skin: Skin is warm and dry. No rash noted. Pt is not diaphoretic. There is mild erythema around the right shoulder blade and trapezius muscle. No pallor. Psychiatric: Pt has a normal mood and affect. Pt behavior is normal. Thought content normal. Limitations: no limitations Course Vital Signs 12/29/17 12/29/17 19:58 22:11 Temperature 98.2 F Pulse Rate 92 77 Respiratory 16 18 Rate Blood Pressure 115/76 146/96 O2 Sat by Pulse 98 97 Oximetry - Reevaluation(s) Reevaluation #1: 12/29/17 22:22 case discussed with anesthesia business applications specialist and it was recommended that CT of the neck and thoracic spine be completed as infection needs to be ruled out. There is mild leukocytosis at 12.2 but is unclear whether this is reactionary or not. Medical Decision Making - Medical Decision Making Laboratory studies showed that there was mild leukocytosis at 12.3 but lactic acid was not elevated and electrolytes were relatively within normal limits. Physical exam findings of the erythema on the right shoulder were again discussed with the patient and her fianc and they advised that the redness is secondary to sunburn that she incurred today. CT of the neck and thoracic spine is also performed to evaluate for infection and it showed no obvious process. Patient's pain was improved with narcotics and patient was advised to follow up with PCP in next 1-2 days. They're also no neurologic deficits that were concerning for emergent process. Patient was agreeable plan and noted to be resting in bed comfortably in no acute distress prior to discharge. - Lab Data Result diagrams: 12/29/17 20:50 12/29/17 20:50 Lab Results 12/29/17 12/29/17 12/29/17 Range/Units 20:50 20:50 22:50 WBC 12.3 H (3.8-10.6) k/uL RBC 4.58 (3.80-5.40) m/uL Hgb 14.8 (11.4-16.0) gm/dL Hct 42.3 (34.0-46.0) % MCV 92.2 (80.0-100.0) fL MCH 32.3 (25.0-35.0) pg MCHC 35.0 (31.0-37.0) g/dL RDW 13.6 (11.5-15.5) % Plt Count 318 (150-450) k/uL Neutrophils % 75 % Lymphocytes % 18 % Monocytes % 4 % Eosinophils % 1 % Basophils % 0 % Neutrophils # 9.2 H (1.3-7.7) k/uL Lymphocytes # 2.2 (1.0-4.8) k/uL Monocytes # 0.5 (0-1.0) k/uL Eosinophils # 0.1 (0-0.7) k/uL Basophils # 0.0 (0-0.2) k/uL Sodium 138 (137-145) mmol/L Potassium 4.2 (3.5-5.1) mmol/L Chloride 99 (98-107) mmol/L Carbon Dioxide 27 (22-30) mmol/L Anion Gap 12 mmol/L BUN 12 (7-17) mg/dL Creatinine 0.60 (0.52-1.04) mg/dL Est GFR (CKD-EPI)AfAm >90 (>60 ml/min/1.73 sqM) Est GFR (CKD-EPI)NonAf >90 (>60 ml/min/1.73 sqM) Glucose 123 H (74-99) mg/dL Plasma Lactic Acid Hans 1.3 (0.7-2.0) mmol/L Calcium 9.4 (8.4-10.2) mg/dL Disposition Clinical Impression: Neck pain Disposition: HOME SELF-CARE Condition: Good Instructions: Cervical Strain (ED) Prescriptions: oxyCODONE-APAP 7.5-325MG [Percocet 7.5-325 mg] 1 tab PO Q6HR PRN 3 Days #12 tab PRN Reason: Pain Is patient prescribed a controlled substance at d/c from ED?: Yes Referrals: Mateo Govea MD [Primary Care Provider] - 1-2 days Time of Disposition: 00:21
[2017-12-29 20:58] LABS: Basophils % (A) 0 %; Eosinophils # (A) 0.1 k/uL (0-0.7); Eosinophils % (A) 1 %; HCT 42.3 % (34.0-46.0); HGB 14.8 gm/dL (11.4-16.0); Lymphocytes # (A) 2.2 k/uL (1.0-4.8); Lymphocytes % (A) 18 %; MCH 32.3 pg (25.0-35.0); MCV 92.2 fL (80.0-100.0); Mean Platelet Volume 6.5; Monocytes # (A) 0.5 k/uL (0-1.0); Monocytes % (A) 4 %; Neutrophils # (A) 9.2 k/uL (1.3-7.7); Neutrophils % (A) 75 %; Platelet Count 318 k/uL (150-450); RBC 4.58 m/uL (3.80-5.40); RDW 13.6 % (11.5-15.5); WBC 12.3 k/uL (3.8-10.6)
[2017-12-29 21:06] LABS: Anion Gap 12 mmol/L; Blood Urea Nitrogen 12 mg/dL (7-17); Calcium 9.4 mg/dL (8.4-10.2); Carbon Dioxide 27 mmol/L (22-30); Chloride 99 mmol/L (98-107); Glucose 123 mg/dL (74-99); Potassium 4.2 mmol/L (3.5-5.1); Sodium 138 mmol/L (137-145)
--- NOTE | 2017-12-29 21:48 | XR ---
EXAMINATION TYPE: XR chest 2V DATE OF EXAM: 12/29/2017 COMPARISON: 10/04/2017 HISTORY: Recent spinal injection with right shoulder and chest pain. TECHNIQUE: Frontal and lateral views of the chest are obtained. FINDINGS: There is no focal air space opacity, pleural effusion, or pneumothorax seen. The cardiac silhouette size is within normal limits. The osseous structures are intact. Mild multilevel degener ative changes of the thoracic spine and acromio clavicular joints are noted. IMPRESSION: No acute cardiopulmonary process.
[2017-12-29 22:19] VITALS: RESP 18
--- NOTE | 2017-12-29 23:47 | CT ---
EXAMINATION TYPE: CT CervThoracic spine w con DATE OF EXAM: 12/29/2017 COMPARISON: HISTORY: rt neck/trapezius pain, t-spine pain after spinal injection/pain procedure CT DLP: 1705.20 mGycm Automated exposure control for dose reduction was used. CONTRAST: Performed with IV Contrast, patient injected with 100 mL of Isovue 300. FINDINGS: The cervical and thoracic vertebra have fairly normal alignment. I see no compression fracture. There is hypertrophic mild spur formation in the lower cervical spine and in the entire thoracic spine. Ex am is limited due to the patient's size. There is no thoracic paraspinal mass. There is no evidence o f thoracic spinal stenosis. I do not see evidence for cervical bony spinal stenosis. Cervical facet j oints are intact. There is normal contrast opacification of the vertebral arteries. There is no evide nce of vertebral artery dissection. The common internal and external carotid arteries appear normal. There is normal branching pattern of the great vessels on the aortic arch. I see no pathologic enhanc ement in the cervical and thoracic spine. I see no focal bony destructive process. I see no soft tiss ue air. There is no evidence of epidural mass. IMPRESSION: EXAM IS LIMITED SLIGHTLY BY PATIENT'S SIZE. MILD DEGENERATIVE DISC CHANGES IN THE CERVICAL AND THORAC IC SPINE. NO FRACTURE. NO EVIDENCE OF EPIDURAL MASS. NO VASCULAR ABNORMALITY IDENTIFIED.
[2017-12-29] MEDS ORDERED: HYDROmorphone 0.5 MG/0.5 ML SYRINGE IVP STA (23:53)
[2017-12-30 00:46] VITALS: BP 123/73; PULSE 84
== END 2017-12-30 00:51 | disposition home or self-care (01) ==
LOC: EC 19:28
DX: M54.2 Cervicalgia (principal); R22.1 Localized swelling, mass and lump, neck; M25.511 Pain in right shoulder; D72.829 Elevated white blood cell count, unspecified; J45.909 Unspecified asthma, uncomplicated; K21.9 Gastro-esophageal reflux disease without esophagitis; E78.5 Hyperlipidemia, unspecified; I10 Essential (primary) hypertension; G40.909 Epilepsy, unspecified, not intractable, without status epilepticus; F32.9 Major depressive disorder, single episode, unspecified; Z95.818 Presence of other cardiac implants and grafts; Z87.891 Personal history of nicotine dependence; Z79.899 Other long term (current) drug therapy; Z88.1 Allergy status to other antibiotic agents; Z88.8 Allergy status to other drugs, medicaments and biological substances; Z88.5 Allergy status to narcotic agent; Z98.890 Other specified postprocedural states
CPT/HCPCS: 99284; 96374; 96375 ×3; 96361; 36415; 80048; 83605; 85025; 87040; 71046; 72129; 72126; J2930; J1885; J2270; J1170; Q9967

== ENCOUNTER → 2018-01-17 | Outpatient (CLI) | payer OTHER ==
[2018-01-17 12:40] VITALS: BP 121/81; PULSE 106; RESP 20
[2018-01-17 12:50] VITALS: TEMP 98.3
--- NOTE | 2018-01-17 13:10 | P.PAINPG ---
Subjective Progress Note Date: 01/17/18 Principal diagnosis: Bilateral cervical spondylosis This is a very pleasant 48-year-old woman with a history of bilateral intractable neck pain and headaches. She is undergone 2 procedures recently one is a left cervical radio frequency ablation in early December which was extremely helpful in reducing her neck pain and headaches. She also had a right -sided procedure done in November. Since that time, she has noticed increased pain and numbness area. She has noticed a fluid collection in her right trapezius muscle. Pain in this area is preventing her from moving her arm well and is causing significant discomfort. She did report significant pain after the procedure and went to the emergency center. She was imaged at that point in time and nothing was found to be wrong. She did have a slightly increased white count the differential was not performed. She admits to some periods of profuse sweating since this procedure. They are not all the time. She has never taken her temperature to see if she has a fever. She presents today for discussion of her difficulties and management suggestions. Objective - Vital Signs Vital signs: Intake & Output 01/16/18 01/17/18 01/17/18 18:59 06:59 18:59 Weight 78.018 kg - Exam General: The patient is alert and oriented. Patient is not sedated Patient answers all question appropriately. Cardiac: Heart is regular in rate and rhythm Respiratory: Clear to auscultation. No audible wheezes. Abdomen: Soft nontender nondistended. Upper extremities: Strength is normal bilaterally. Sensation is normal bilaterally. Reflexes are preserved and symmetric bilaterally. No long tract signs are present Examination of the trapezius muscles bilaterally reveals a fluctuant presence in the right mid trapezius. It is not hot. There is no breakdown of the skin or any drainage. Nevertheless, a fluid collection is present. Extension of the cervical spine is provocative of pain. As is flexion.. Assessment and Plan (1) Cervical spondylosis without myelopathy Narrative/Plan: Plan of Care 1. Medications: Patient will continue pain medications as prescribed by her primary physician 2. Interventions: No interventions are indicated this time. 3. Referrals: No referrals were made this appointment. 4. Testing: I have ordered a complete blood count with differential, ultrasound of the right trapezius and computed tomography scan with contrast of the cervical and thoracic spine. These should help determine the cause of the fluid collection and better characterize it. We will make referrals to appropriate areas once the results of these tests are known. I strongly encouraged the patient to contact us as soon as they're completed. She should also go to the emergency center should she have any development of neurologic symptoms. 5. Psychological: Patient is doing well psychologically. I will not make any referrals today. Current Visit: Yes Status: Acute Code(s): M47.812 - SPONDYLOSIS W/O MYELOPATHY OR RADICULOPATHY, CERVICAL REGION SNOMED Code(s): 312447498 (2) Fluid collection at surgical site Current Visit: Yes Status: Acute Code(s): T88.8XXA - OTH COMPLICATIONS OF SURGICAL AND MEDICAL CARE, NEC, INIT SNOMED Code(s): 928884978 PQRS Measure Charge Sheet Measure #130: Documentation of Current Meds in Medical Chart: Patient's medications documented in chart Measure #226: Tobacco Use: Screen & Cessation Intervention: Pt not a tobacco user Measure #111: Pneumonia Vaccination: Pneumococcal vaccine NOT administered or previously given Measure #47: Advance Care Plan: Advance care planning discussed & documented, pt chose/unable to give Measure #412: Opioid Treatment Agreement: No documentation of signed opioid treatment agreement Measure #408: Opioid Therapy Follow-up Evaluation: Patient had f/u eval minimum every 3 months during opioid therapy Measure #317: Preventitive Care & Scrn High Bld Press & F/U: Normal blood pressure, f/u not required Measure #128: Body Mass Index (BMI) Screening & Follow-up: BMI documented ABOVE normal parameters - f/u documented Measure #131: Pain Assessment & Follow-up: Pain positive & plan documented Measure #431: Unhealthy Alcohol Use Preventative Care & Scrn: Patient not identified as an unhealthy alcohol user PQRS Narrative: Smoking Status Former smoker Hx Alcohol Use (MH) No Home Medications: Ambulatory Orders Docusate Sodium [Dulcolax Stool Softener] 100 mg PO DAILY 03/03/14 HYDROcodone/APAP 10-325MG [[place] 10-325] 1 tab PO TID PRN 03/03/14 Losartan [Cozaar] 50 mg PO QAM 03/03/14 Citalopram Hydrobromide [CeleXA] 20 mg PO QAM 04/03/14 Omeprazole [PriLOSEC] 20 mg PO BID 04/03/14 Gabapentin [Neurontin] 400 mg PO TID 04/20/15 clonazePAM [Clonazepam] 2 mg PO HS 10/12/14 Albuterol Inhaler [Ventolin Inhaler] 2 puff INHALATION QID PRN 11/23/14 Albuterol Nebulized [Ventolin Nebulized] 2.5 mg INHALATION QID PRN 11/23/14 Cyclobenzaprine [Flexeril] 10 mg PO TID PRN 02/02/15 Azelastine HCl [Optivar 0.05% Ophth Soln] 1 drop BOTH EYES DAILY 06/12/16 Fenofibrate 160 mg PO HS 06/12/16 Ibuprofen [Motrin] 800 mg PO BID PRN 06/12/16 Montelukast Sodium [Singulair] 10 mg PO HS 06/12/16 OXcarbazepine [Oxtellar Xr] 900 mg PO HS 06/12/16 Oxybutynin Chloride [Ditropan] 5 mg PO BID 06/12/16 Prochlorperazine [Compazine] 10 mg PO TID PRN 06/12/16 Verapamil HCl [Verapamil ER] 120 mg PO QAM 06/12/16 Cetirizine HCl 10 mg PO DAILY 05/01/17 oxyCODONE-APAP 7.5-325MG [Percocet 7.5-325 mg] 1 tab PO Q6HR PRN 3 Days #12 tab 12/30/17 Controlled Substance Measures - Controlled Substance Measures Is patient prescribed a controlled substance at discharge?: No
[2018-01-17 14:13] LABS: Basophils # (A) 0.1 k/uL (0-0.2); Basophils % (A) 1 %; Eosinophils # (A) 0.2 k/uL (0-0.7); Eosinophils % (A) 3 %; HCT 42.4 % (34.0-46.0); HGB 14.4 gm/dL (11.4-16.0); Lymphocytes % (A) 27 %; MCH 31.5 pg (25.0-35.0); MCHC 34.1 g/dL (31.0-37.0); MCV 92.6 fL (80.0-100.0); Mean Platelet Volume 6.4; Monocytes # (A) 0.4 k/uL (0-1.0); Monocytes % (A) 6 %; Neutrophils # (A) 4.5 k/uL (1.3-7.7); Neutrophils % (A) 61 %; Platelet Count 295 k/uL (150-450); RBC 4.58 m/uL (3.80-5.40); RDW 13.1 % (11.5-15.5); WBC 7.3 k/uL (3.8-10.6)
== END | disposition home or self-care (01) ==
LOC: PNWHC3 12:23
PROVIDERS: ATTEND Pain Medicine Pain Medicine
DX: M47.812 Spondylosis without myelopathy or radiculopathy, cervical region (principal); M60.011 Infective myositis, right shoulder; Z79.899 Other long term (current) drug therapy
CPT/HCPCS: 85025; G0463; 99211

== ENCOUNTER → 2018-01-21 | Outpatient (CLI) | payer OTHER ==
--- NOTE | 2018-01-21 08:41 | CT ---
EXAMINATION TYPE: CT cervical spine w con, CT thoracic spine w con DATE OF EXAM: 01/21/2018 COMPARISON: CT cervical spine and thoracic spine dated 12/29/2017 HISTORY: Cervical fluid collection; evaluate for abscess (accession [id number]), Cervical fluid collect ion with eval for abscess (accession [id number]). Right-sided neck and upper back pain. CT DLP: 2702.40 mGycm Automated exposure control for dose reduction was used. CONTRAST: Performed with IV Contrast, patient injected with 100 ml mL of Isovue 300. FINDINGS: CERVICAL SPINE: No focal fluid collection is seen in the visualized portions of the musculature of th e neck or thoracic spine. Evaluation of the spinal canal is limited on CT and if there is concern for epidural abscess recommendation would be for MRI. C2-C3: No significant disc disease, spinal canal stenosis or neural foraminal narrowing. C3-C4: There is a small disc bulge and left-sided uncovertebral hypertrophy without significant spina l canal stenosis or neural foraminal narrowing. C4-C5: There is intervertebral disc space narrowing and a small broad-based disc bulge without spinal canal stenosis or neural foraminal narrowing. C5-C6: There is a broad-based disc bulge minimally narrowing the ventral subarachnoid space. However the spinal canal and neural foramen appear to be patent. Intervertebral disc space narrowing is seen at this level. C6-C7: No significant disc pathology appreciated on CT. Minimal intervertebral disc space narrowing. C7-T1: No significant neural foraminal narrowing or spinal canal stenosis. No appreciable disc pathol ogy. The cervical spine vertebral bodies maintain normal vertebral body heights and alignment. There is no evidence of acute fracture or dislocation of the cervical spine. Visualized paranasal sinuses and ma stoid air cells are well aerated. THORACIC SPINE: The thoracic spine vertebral bodies maintain normal vertebral body heights and alignment. There is no evidence of acute fracture or dislocation of the thoracic spine. Multilevel small anterior osteophyt es and intervertebral disc space narrowing are seen. At T8-T9: There is a right paracentral disc herniation creating mild spinal canal stenosis and mild-t o-moderate right neural foraminal narrowing. Although there is limited evaluation of the spinal canal on CT no other discrete disc herniations are seen at any thoracic vertebral level. At T9-T10 there a ppears to be a small right eccentric disc bulge as well as facet and T10-T11. Along the right interlobar fissure there is a solid appearing pulmonary nodule on series 2 image 50 m easuring 4 mm. This could relate to a true pulmonary nodule or intrafissural lymph node. Within the r emainder the visualized lungs there is subsegmental atelectasis. Cholecystectomy clips are noted with in the partially visualized gallbladder fossa. Paraspinal musculature appears unremarkable. There is no identifiable fluid collection or abnormal enhancement within the paraspinal musculature. IMPRESSION: 1. NO FOCAL FLUID COLLECTION WITHIN THE VISUALIZED SUBCUTANEOUS TISSUES OR PARASPINAL MUSCULATURE OF THE CERVICAL SPINE OR THORACIC SPINE TO INDICATE POSTPROCEDURAL ABSCESS. IF THERE IS CONCERN FOR EPID URAL ABSCESS MRI IS RECOMMENDED THERE IS SUBOPTIMAL EVALUATION OF THE SPINAL CANAL ON CT. 2. RIGHT PARACENTRAL DISC HERNIATION AT T8-T9 CREATING MILD SPINAL CANAL STENOSIS AND [id number] E RIGHT NEURAL FORAMINAL NARROWING. DEGREE OF STENOSIS AND NEURAL FORAMINAL NARROWING CAN ALSO BE BET TER ASSESSED WITH MRI. 3. MULTILEVEL MILD DEGENERATIVE CHANGES OF THE CERVICAL SPINE AND THORACIC SPINE DESCRIBED ABOVE W ITH NO ADDITIONAL AREAS OF SPINAL CANAL STENOSIS IDENTIFIED. 4. NO EVIDENCE OF ACUTE FRACTURE OR MALALIGNMENT OF THE CERVICAL OR THORACIC SPINE. 5. SOLID APPEARING 4 MM RIGHT PULMONARY NODULE ALONG THE INTERLOBAR FISSURE THAT COULD REPRESENT AN I NTRAFISSURAL LYMPH NODE OR TRUE PULMONARY NODULE. FULL EVALUATION OF THE CHEST COULD BE PERFORMED WIT H CT. THORAX
--- NOTE | 2018-01-21 08:45 | US ---
EXAMINATION TYPE: US mass soft tissue chest/back DATE OF EXAM: 01/21/2018 COMPARISON: Same day CT cervical and thoracic spine CLINICAL HISTORY: Fluid collection E87.7. Patient states having nerves burned on December 03 2017. Sin ce the procedure, there has been an midline upper back protrusion. R/O fluid collection. Area of concern scanned. No fluid or prominent mass identified on images saved. Findings correlate with same day CT with no suspicious abnormality seen in the posterior subcutaneous paraspinal fat. IMPRESSION: As above.
--- NOTE | 2018-01-23 14:56 | P.PN ---
Progress Note - Text Progress Note Date: 01/23/18 At her last visit, I ordered some lab tests as well as an ultrasound and CAT scan of the patient's neck to evaluate for a source of the swelling in her neck. All of these came back negative for a source of swelling. I personally called her today and spoke with her. She continues to have significant swelling and pain in her neck. She also reports having some elevated temperatures at times. She denies any nuchal rigidity signs or any radicular signs. She denies any changes in vision or other neurologic findings. I strongly emphasized to her that if she begins having significant sustained elevations in temperature or any other neurologic findings such as double vision or pain down her arms or legs or down her back or any nuchal rigidity that she needs to present to the emergency room immediately. I've advised to follow-up with her primary care physician to evaluate for elevated temperatures. I will order an MRI of her cervical spine to evaluate for evidence of infection. She will call us once she has had this scan performed and we will evaluate the results and contact her.
== END | disposition home or self-care (01) ==
LOC: RADCTMAIN 06:49
PROVIDERS: ATTEND Pain Medicine Pain Medicine
DX: M51.24 Other intervertebral disc displacement, thoracic region (principal); M54.6 Pain in thoracic spine; R91.1 Solitary pulmonary nodule
CPT/HCPCS: 76604; 72129; 72126; Q9967

== ENCOUNTER → 2018-01-24 | Outpatient (CLI) | payer OTHER ==
--- NOTE | 2018-01-25 08:05 | MR ---
MRI CERVICAL SPINE: CLINICAL HISTORY: Epidural abscess. Neck pain. TECHNIQUE: Multiplanar, multisequence imaging of the cervical spine is performed without and with IV contrast, 7.5 cc of gadolinium was given intravenously. COMPARISON: CT cervical spine January 21, [address] Neck ultrasound January 21, 2018. FINDINGS: Sagittal images of the cervical spine show the craniocervical junction to remain within nor mal limits. The cervical and upper thoracic spinal cord is normal in course, caliber, and signal. V ertebral alignment is stable and straightened. The vertebral body and intravertebral disk heights ar e normal. Small posterior disc herniation C5-C6 level as seen on sagittal images. The bone marrow si gnal intensity is within normal limits. No suspicious enhancement is present. Axial images show the C2-C3, C3-C4, and the C4-C5 levels to appear within normal limits. Symmetric ri m enhancement uncovertebral facet joint C4-C5 level axial image 28 could reflect inflammatory change. Axial images at C5-C6 level show broad-based right paracentral disc protrusion effacing anterolateral thecal sac on axial image 19, bilateral neural foramina are patent. Axial images at C6-C7 and C7-T1 levels are felt to remain within normal limits. IMPRESSION: No suspicious rim-enhancing fluid collection to suggest epidural or paraspinal abscess. S table straightened alignment with disc herniation C5-C6 level.
== END | disposition home or self-care (01) ==
LOC: RADMRIMAIN 14:09
PROVIDERS: ATTEND Pain Medicine Pain Medicine
DX: M50.222 Other cervical disc displacement at C5-C6 level (principal); Z98.890 Other specified postprocedural states
CPT/HCPCS: 72156; A9581

== ENCOUNTER → 2018-01-30 | Outpatient (CLI) | payer OTHER ==
[2018-01-30 13:54] VITALS: BP 120/80; PULSE 96; RESP 18; TEMP 98.1
--- NOTE | 2018-01-31 13:20 | P.PN ---
Subjective Progress Note Date: 01/30/18 This is 48 years old female with a chronic history of severe neck pain , she is diagnosed with cervical spondylosis and cervical bulging disc disease, and diagnostic medial branch block cervical area which was positive, later on we did radiofrequency ablation of the medial branch cervical area, the right side was done on 12/12/2017, and the left side was done in 12/24/2017, patient continued to have severe neck pain on the right side, and multiple diagnostic study ordered recently including computed tomography scan and MRI of the cervical spine and it showed right-sided paracentral disc protrusion , she denies any motor or sensory deficits, no fever or night sweats Objective - Vital Signs Vital signs: Vital Signs Temp 98.1 F 01/30/18 13:45 Pulse 96 01/30/18 13:45 Resp 18 01/30/18 13:45 BP 120/80 01/30/18 13:45 Pulse Ox Intake & Output 01/30/18 01/31/18 01/31/18 18:59 06:59 18:59 Weight 79.379 kg - Exam Physical Examinations : 1-Constitutiona : Cooperative , not in acute distress . 2-HEENT : nech ; supple , no Lymphadenopathy , normal thyroid size . eyes : no ptosis , no icterus , no photophobia . ENT : normal of hearing , normal oropharynx , no Thrush . 3- Respiratory : Chest clear to auscultations Bilaterally , no wheezing , no Rhonchi . 4- Cardiovascular : regular rate and rhythem , S1 , S2 , no S3 , no S4. 5- Gastrointestinal : abdomen soft no tenderness , bowel sounds , no organomegally . 6- Genitourinary : Defferred . 7- neurologic : Cranial nerve II to XII intact , no focal neurological deffecit . 8-psychatric : alert , oriented X 3 , appropriate affect , intact judgment and insight . 9-Lymphatic : no Lymphadenopathy . 10- musculoskeltal : Cervical Spine motor stregnth in the deltoid and biceps, normal right side , normal Left side motor stregnth biceps and the wrist extensors normal right side ,normal left side . motor stregnth in the triceps muscle . normal Right side , normal Left side deep tendon reflexes normal at the biceps , normal at Brachioradialis , normal at triceps. positive cervical facet loading test on the right side. multiple trigger points identified in the cervical paravertebral muscles on the right side. Cervical spine examination showed no erythema, no discharge Lumber spine moter stegnth lower extremities ,thigh and legs 5/5 Right side , 5/5 Left side Assessment and Plan Plan: Assessment and plan= 48 years old female with a history of chronic severe neck pain secondary to cervical herniated disc disease, cervical spondylosis And myofascial pain syndrome cervical area. Status post radiofrequency ablation of the medial paracervical area, currently patient having severe neck pain mainly on the right side The pain mostly secondary to discogenic component plus myofascial pain component. Patient could benefit from cervical epidural steroid injections and trigger point injection on the right side cervical paravertebral muscles Procedure risks and benefits and alternatives discussed with the patient, and she agreed with the preceding Time with Patient: Less than 30
== END | disposition home or self-care (01) ==
LOC: PNWHC3 13:07
PROVIDERS: ATTEND Specialist
DX: G89.29 Other chronic pain (principal); M50.20 Other cervical disc displacement, unspecified cervical region; M47.812 Spondylosis without myelopathy or radiculopathy, cervical region; M79.1 Myalgia; Z98.890 Other specified postprocedural states
CPT/HCPCS: 99211

== ENCOUNTER 2018-02-06 08:05 | Day surgery (SDC) | payer OTHER ==
[2018-01-31 13:24] VITALS: BMI 32.1
[2018-02-06 08:50] VITALS: RESP 16; TEMP 98
[2018-02-06] MEDS ORDERED: LIDOCAINE 1% 20 ML VIAL (10MG/ML) FOR IV START INTRADERMA ONE (09:07)
--- NOTE | 2018-02-06 10:20 | P.PCN ---
Date of Procedure: 02/06/18 Procedure(s) Performed: . PROCEDURE 1. Cervical epidural steroid injection under fluoroscopic guidance, C6-7 2. Cervical epidurogram. 3. Trigger point injections Right cervical paravertebral muscles,Right rhomboid muscle, Right suprascapular muscle ( total of 4 trigger points injected ) PREOPERATIVE DIAGNOSIS: 1- Cervical herniated Disc Diseases 2-cervical spondylosis with cervical Facet arthropathy without myelopathy 3- myofascial pain syndrome cervical area. POSTOPERATIVE DIAGNOSIS: : Same as preoperative diagnosis ANESTHESIA: Local anesthesia with 1% lidocaine and IV sedation with Versed 2 mg and Fentanyl 100 mcg. EBL 0 PROCEDURE INDICATION: The patient with neck pain and radiculitis unresponsive to conservative treatment consents for procedure. PROCEDURE DESCRIPTION / TECHNIQUE: The patient was seen and identified in the preoperative area. Risks, benefits, complications, including but not limited to infections ,bleeding , allergic reactions to the medications ,and not complete pain releife, and alternatives were discussed with the patient, the patient agreed to proceed with the procedure and signed the consent. Patient was taken to the OR and time out was completed. The patient was placed in the prone position on the procedure table. A pillow was placed under the patients chest to increase the cervical interlaminar space. The cervical area was prepped and draped in the usual sterile fashion. Vital signs were closely monitored during the procedure. Conscious sedation was used during the procedure to decrease patients anxiety. Using anterior-posterior fluoroscopy, the C6-7 interlaminar space was identified and the skin over this site was marked and then infiltrated with 1% lidocaine subcutaneously. Subsequently, a 20-gauge 3-1/2-inch Tuohy epidural needle was inserted and advanced toward the epidural space by means of the `` hanging-drop technique and guided by AP and lateral fluoroscopy. The correct needle position in the epidural space was verified with the injection of 2 mL of the water soluble contrast dye Isovue-200 and observing an excellent epidurogram with the epidural spread of the dye, after negative aspiration for blood and CSF and in the absence of paresthesias. Again after negative aspiration, mixture containing 20 mg Dexamethasone and 2 ml of preservative- free normal saline injected and a washout of epidurogram was seen. Needle was withdrawn intact, Audra trigger point injections done and sterile technique, each of the trigger points mentioned above injected with Ropivacaine 0.5% 3 mL injected at each trigger point using 25-gauge needle, injection done after negative aspiration and there was no paresthesia during the injection, patient tolerated the procedure well without any complications Complications= none. Disposition= patient was placed in supine position and transferred to the recovery room area in stable condition and there was no evidence of upper or lower extremity motor or sensory deficit after the procedure patient was discharged from recovery room after discharge criteria met and home discharge instructions was given by the staff and patient will follow with the pain clinic in 2-4 weeks
[2018-02-06] MEDS ORDERED: IV FLUID CONTINUATION 1,000 ML IV ONE (10:22)
--- NOTE | 2018-02-06 10:26 | FL ---
EXAMINATION TYPE: FL guided pain mgmt statistic DATE OF EXAM: 02/06/2018 HISTORY: Flouroscopy time 2 seconds of fluoroscopy provided. IMPRESSION: 1. Fluoroscopy time.
[2018-02-06 10:41] VITALS: BP 103/70; PULSE 93
== END 2018-02-06 10:55 | disposition home or self-care (01) ==
LOC: ORPAIN 08:05
PROVIDERS: ATTEND Specialist
DX: M47.22 Other spondylosis with radiculopathy, cervical region (principal); M50.10 Cervical disc disorder with radiculopathy, unspecified cervical region; M79.1 Myalgia; I10 Essential (primary) hypertension; E11.9 Type 2 diabetes mellitus without complications; G40.909 Epilepsy, unspecified, not intractable, without status epilepticus; G43.909 Migraine, unspecified, not intractable, without status migrainosus; Z88.1 Allergy status to other antibiotic agents
CPT/HCPCS: 20553; 62321; J2250; J1100; J3010; Q9966; 99152

== ENCOUNTER 2018-02-21 07:57 | Day surgery (SDC) | payer OTHER ==
[2018-02-19 09:43] VITALS: BMI 32.1
[2018-02-21 08:31] VITALS: RESP 16; TEMP 97.5
[2018-02-21] MEDS ORDERED: LIDOCAINE 1% 20 ML VIAL (10MG/ML) FOR IV START INTRADERMA ONE (08:32)
--- NOTE | 2018-02-21 09:44 | P.PCN ---
Date of Procedure: 02/21/18 Procedure(s) Performed: PROCEDURE 1. Cervical epidural steroid injection under fluoroscopic guidance, C6-7 2. Cervical epidurogram. 3. Trigger point injections Right cervical paravertebral muscles,Right rhomboid muscle, Right suprascapular muscle ( total of 4 trigger points injected ) PREOPERATIVE DIAGNOSIS: 1- Cervical herniated Disc Diseases 2-cervical spondylosis with cervical Facet arthropathy without myelopathy 3- myofascial pain syndrome cervical area. POSTOPERATIVE DIAGNOSIS: : Same as preoperative diagnosis ANESTHESIA: Local anesthesia with 1% lidocaine and IV sedation with Versed 2 mg and Fentanyl 100 mcg. EBL 0 PROCEDURE INDICATION: The patient with neck pain and radiculitis unresponsive to conservative treatment consents for procedure. PROCEDURE DESCRIPTION / TECHNIQUE: The patient was seen and identified in the preoperative area. Risks, benefits, complications, including but not limited to infections ,bleeding , allergic reactions to the medications ,and not complete pain releife, and alternatives were discussed with the patient, the patient agreed to proceed with the procedure and signed the consent. Patient was taken to the OR and time out was completed. The patient was placed in the prone position on the procedure table. A pillow was placed under the patients chest to increase the cervical interlaminar space. The cervical area was prepped and draped in the usual sterile fashion. Vital signs were closely monitored during the procedure. Conscious sedation was used during the procedure to decrease patients anxiety. Using anterior-posterior fluoroscopy, the C6-7 interlaminar space was identified and the skin over this site was marked and then infiltrated with 1% lidocaine subcutaneously. Subsequently, a 20-gauge 3-1/2-inch Tuohy epidural needle was inserted and advanced toward the epidural space by means of the `` hanging-drop technique and guided by AP and lateral fluoroscopy. The correct needle position in the epidural space was verified with the injection of 2 mL of the water soluble contrast dye Isovue-200 and observing an excellent epidurogram with the epidural spread of the dye, after negative aspiration for blood and CSF and in the absence of paresthesias. Again after negative aspiration, mixture containing 20 mg Dexamethasone and 2 ml of preservative- free normal saline injected and a washout of epidurogram was seen. Needle was withdrawn intact, Audra trigger point injections done and sterile technique, each of the trigger points mentioned above injected with Ropivacaine 0.5% 3 mL injected at each trigger point using 25-gauge needle, injection done after negative aspiration and there was no paresthesia during the injection, patient tolerated the procedure well without any complications Complications= none. Disposition= patient was placed in supine position and transferred to the recovery room area in stable condition and there was no evidence of upper or lower extremity motor or sensory deficit after the procedure patient was discharged from recovery room after discharge criteria met and home discharge instructions was given by the staff and patient will follow with the pain clinic in 2-4 weeks
--- NOTE | 2018-02-21 09:54 | FL ---
EXAMINATION TYPE: FL guided pain mgmt statistic DATE OF EXAM: 02/21/2018 HISTORY: Flouroscopy time 5 seconds of fluoroscopy provided. IMPRESSION: 1. Fluoroscopy time.
[2018-02-21 10:05] VITALS: BP 116/80; PULSE 97
[2018-02-21] MEDS ORDERED: IV FLUID CONTINUATION 1,000 ML IV ONE (10:40)
== END 2018-02-21 10:45 | disposition home or self-care (01) ==
LOC: ORPAIN 07:57
PROVIDERS: ATTEND Specialist
DX: M50.10 Cervical disc disorder with radiculopathy, unspecified cervical region (principal); M47.22 Other spondylosis with radiculopathy, cervical region; M79.1 Myalgia
CPT/HCPCS: 20553; 62321; J2250; J1100; J3010; Q9966; 20552; 99152

== ENCOUNTER → 2018-03-21 | Outpatient (CLI) | payer OTHER ==
[2018-03-21 14:22] VITALS: BP 137/90; PULSE 95; RESP 18
--- NOTE | 2018-03-21 18:06 | P.PAINPG ---
Subjective Progress Note Date: 03/21/18 This is 48 years old female with a chronic history of severe neck pain , she is diagnosed with cervical spondylosis and cervical bulging disc disease, and diagnostic medial branch block cervical area which was positive, later on we did radiofrequency ablation of the medial branch cervical area, and later on we did cervical epidural steroid injections under fluoroscopy guidance, recently patient complained of severe low back pain with radiation to the lower extremity , mainly to the left side, MRI of the lumbar spine showed patient had L4 5 and L5-S1 disc bulging , she denies any motor or sensory deficits, no fever or night sweats Patient continued to use [place] 10/325 every 8 hours, Neurontin 400 mg every 8 hours, Flexeril 10 mg 3 times a day, Motrin 800 mg 3 times a day, she is getting prescription refills from her primary care Physical Examinations : 1-Constitutiona : Cooperative , not in acute distress . 2-HEENT : nech ; supple , no Lymphadenopathy , normal thyroid size . eyes : no ptosis , no icterus , no photophobia . ENT : normal of hearing , normal oropharynx , no Thrush . 3- Respiratory : Chest clear to auscultations Bilaterally , no wheezing , no Rhonchi . 4- Cardiovascular : regular rate and rhythem , S1 , S2 , no S3 , no S4. 5- Gastrointestinal : abdomen soft no tenderness , bowel sounds , no organomegally . 6- Genitourinary : Defferred . 7- neurologic : Cranial nerve II to XII intact , no focal neurological deffecit . 8-psychatric : alert , oriented X 3 , appropriate affect , intact judgment and insight . 9-Lymphatic : no Lymphadenopathy . 10- musculoskeltal : Cervical Spine motor stregnth in the deltoid and biceps, normal right side , normal Left side motor stregnth biceps and the wrist extensors normal right side ,normal left side . motor stregnth in the triceps muscle . normal Right side , normal Left side deep tendon reflexes normal at the biceps , normal at Brachioradialis , normal at triceps. positive cervical facet loading test on the right side. multiple trigger points identified in the cervical paravertebral muscles on the right side. Cervical spine examination showed no erythema, no discharge Lumber spine moter stegnth lower extremities ,thigh and legs 5/5 Right side , 5/5 Left side Straight leg raising test positive at the left side at 30, negative on the right side Jama test positive on the left side, Leslee motor strength and normal sensation in the lower extremity bilaterally Assessment and plan= 48 years old female with a history of chronic severe neck pain secondary to cervical herniated disc disease, cervical spondylosis Neck pain improved after the radiofrequency and after the cervical epidural steroid injection. Currently , the main problem is lumbar radiculopathy , lumbar bulging disc disease, patient will be good candidate to have lumbar epidural steroid injection at L5-S1 left-sided paramedian approach Patient should continue her current medication she is getting prescription refills from her primary care Objective - Vital Signs Vital signs: Vital Signs Temp Pulse 95 03/21/18 14:14 Resp 18 03/21/18 14:14 BP 137/90 03/21/18 14:14 Pulse Ox 93 L 03/21/18 14:14 Intake & Output 03/20/18 03/21/18 03/21/18 18:59 06:59 18:59 Weight 81.647 kg PQRS Measure Charge Sheet Measure #130: Documentation of Current Meds in Medical Chart: Patient's medications documented in chart Measure #226: Tobacco Use: Screen & Cessation Intervention: Pt not a tobacco user Measure #111: Pneumonia Vaccination: Pneumococcal vaccine administered or previously received Measure #47: Advance Care Plan: Advance care planning discussed & documented, pt chose/unable to give Measure #412: Opioid Treatment Agreement: No documentation of signed opioid treatment agreement Measure #408: Opioid Therapy Follow-up Evaluation: Patient had NO f/u eval minimum every 3 months during opioid therapy Measure #317: Preventitive Care & Scrn High Bld Press & F/U: Normal blood pressure, f/u not required Measure #128: Body Mass Index (BMI) Screening & Follow-up: BMI documented ABOVE normal parameters - f/u documented Measure #131: Pain Assessment & Follow-up: Pain positive & plan documented, Follow-up scheduled Measure #431: Unhealthy Alcohol Use Preventative Care & Scrn: Patient not identified as an unhealthy alcohol user PQRS Narrative: Smoking Status Former smoker Do You Want the Pneumonia No Vaccine AT THIS TIME? Blood Pressure 137/90 Pain Intensity [Lower Back] 8 Scale Used Numeric (1 - 10) Hx Alcohol Use (MH) No Home Medications: Ambulatory Orders Docusate Sodium [Dulcolax Stool Softener] 100 mg PO DAILY 03/03/14 HYDROcodone/APAP 10-325MG [[place] 10-325] 1 tab PO TID PRN 03/03/14 Citalopram Hydrobromide [CeleXA] 20 mg PO QAM 04/03/14 Omeprazole [PriLOSEC] 20 mg PO BID 04/03/14 clonazePAM [Clonazepam] 2 mg PO HS 10/12/14 Albuterol Inhaler [Ventolin Inhaler] 2 puff INHALATION RT-QID PRN 11/23/14 Albuterol Nebulized [Ventolin Nebulized] 2.5 mg INHALATION RT-QID PRN 11/23/14 Cyclobenzaprine [Flexeril] 10 mg PO TID PRN 02/02/15 Azelastine HCl [Optivar 0.05% Ophth Soln] 1 drop BOTH EYES DAILY 06/12/16 Fenofibrate 160 mg PO HS 06/12/16 Ibuprofen [Motrin] 800 mg PO BID PRN 06/12/16 OXcarbazepine [Oxtellar Xr] 900 mg PO HS 06/12/16 Oxybutynin Chloride [Ditropan] 5 mg PO BID 06/12/16 Prochlorperazine [Compazine] 10 mg PO TID PRN 06/12/16 Verapamil HCl [Verapamil ER] 120 mg PO QAM 06/12/16 Cetirizine HCl 10 mg PO DAILY 05/01/17 ALPRAZolam [Xanax] 1 mg PO DAILY PRN 03/05/18 Butalb/APAP/Caff 50-325-40Mg [Fioricet 50-325-40] 1 tab PO Q8H PRN 03/05/18 Diazepam [Valium] 5 mg PO TID PRN 3 Days #9 tab 03/05/18 Gabapentin [Neurontin] 400 mg PO TID 03/05/18 Lidocaine 4% Cream [Lmx 4] 1 applic TOPICAL BID 03/05/18 Losartan [Cozaar] 50 mg PO DAILY 03/05/18 Controlled Substance Measures - Controlled Substance Measures Is patient prescribed a controlled substance at discharge?: No When asked, does pt state using other controlled substances?: No If prescribed controlled substance>3 days was MAPS reviewed?: No If Rx opioid, was Start Talking consent form obtained?: No If opioid is for acute pain is fill amount 7 days or less?: No Was information provided regarding opioid addiction?: No
== END | disposition home or self-care (01) ==
LOC: PNWHC3 13:51
PROVIDERS: ATTEND Specialist
DX: G89.29 Other chronic pain (principal); M50.20 Other cervical disc displacement, unspecified cervical region; M47.812 Spondylosis without myelopathy or radiculopathy, cervical region; M51.17 Intervertebral disc disorders with radiculopathy, lumbosacral region; Z79.891 Long term (current) use of opiate analgesic; Z79.1 Long term (current) use of non-steroidal anti-inflammatories (NSAID); Z87.891 Personal history of nicotine dependence
CPT/HCPCS: 99211

== ENCOUNTER → 2018-04-15 | Outpatient (CLI) | payer OTHER ==
--- NOTE | 2018-04-15 10:30 | MM ---
Reason for exam: screening (asymptomatic). Baseline mammogram. History: Family history of breast cancer in maternal grandmother. Physical Findings: Nurse did not find any significant physical abnormalities on exam. MG Screening Mammo w CAD Bilateral CC and MLO view(s) were taken. The breast tissue is heterogeneously dense. This may lower the sensitivity of mammography. Stable scattered benign calcifications. These results were verbally communicated with the patient and result sheet given to the patient on 04/15/18. ASSESSMENT: Benign, BI-RAD 2 RECOMMENDATION: Routine screening mammogram of both breasts in 1 year.
== END | disposition home or self-care (01) ==
LOC: RADMAMWWP 09:42
PROVIDERS: ATTEND Family Medicine
DX: Z12.31 Encounter for screening mammogram for malignant neoplasm of breast (principal)
CPT/HCPCS: 77067

== ENCOUNTER 2018-06-07 21:19 | Emergency (ER) | payer OTHER ==
[2018-06-07 21:28] VITALS: TEMP 97.9
[2018-06-07] MEDS ORDERED: ACETAMINOPHEN TAB 500 MG TAB PO STA (21:41)
[2018-06-07] MEDS ORDERED: MORPHINE SULFATE 4 MG/ML SYRINGE IV STA (21:41)
[2018-06-07] MEDS ORDERED: IBUPROFEN 600 MG TAB PO STA (21:41)
[2018-06-07] MEDS ORDERED: SODIUM CHLORIDE 0.9% 1,000 ML IV STA ×2 (21:41)
--- NOTE | 2018-06-07 21:41 | ED ---
Female Urogenital HPI - General Chief complaint: Recheck/Abnormal Lab/Rx Stated complaint: stomach infection, out of medicine, still in pain Time Seen by Provider: 06/07/18 21:32 Source: patient, RN notes reviewed, old records reviewed Mode of arrival: ambulatory Limitations: no limitations - History of Present Illness Initial comments: This is a 40-year-old female the ER for eversion of bowel pain. Patient has been multiple recent antibiotics for vaginal symptoms. Patient denies current vaginal discharge denies any change in sexual activity. No diarrhea she is nauseous, denies possibility of . MD Complaint: pelvic pain -: days(s) Location: suprapubic Radiation: suprapubic Severity: mild Severity scale (1-10): 2 Quality: cramping Consistency: constant Improves with: none Worsens with: none Patient : No Associated Symptoms: other (Vaginal itching) - Related Data Home Medications Medication Instructions Recorded Confirmed Docusate Sodium [Dulcolax Stool 100 mg PO HS 03/03/14 06/07/18 Softener] Citalopram Hydrobromide [CeleXA] 20 mg PO QAM 04/03/14 06/07/18 Omeprazole [PriLOSEC] 20 mg PO BID 04/03/14 06/07/18 clonazePAM [Clonazepam] 2 mg PO HS 10/12/14 06/07/18 Albuterol Inhaler [Ventolin 2 puff INHALATION RT-QID PRN 11/23/14 06/07/18 Inhaler] Cyclobenzaprine [Flexeril] 10 mg PO TID 02/02/15 06/07/18 Azelastine HCl [Optivar 0.05% 1 drop BOTH EYES DAILY 06/12/16 06/07/18 Ophth Soln] Fenofibrate 160 mg PO HS 06/12/16 06/07/18 Ibuprofen [Motrin] 800 mg PO TID 06/12/16 06/07/18 OXcarbazepine [Oxtellar Xr] 900 mg PO HS 06/12/16 06/07/18 Oxybutynin Chloride [Ditropan] 5 mg PO BID 06/12/16 06/07/18 Prochlorperazine [Compazine] 10 mg PO TID 06/12/16 06/07/18 Verapamil HCl [Verapamil ER] 120 mg PO QAM 06/12/16 06/07/18 Cetirizine HCl 10 mg PO DAILY 05/01/17 06/07/18 Lidocaine 4% Cream [Lmx 4] 1 applic TOPICAL BID 03/05/18 06/07/18 Losartan [Cozaar] 50 mg PO DAILY 03/05/18 06/07/18 Fluticasone Nasal [place] [Flonase 1 spray EA NOSTRIL DAILY 06/07/18 06/07/18 Nasal [place]] Gabapentin 600 mg PO TID 06/07/18 06/07/18 Loratadine 10 mg PO DAILY 06/07/18 06/07/18 Phentermine HCl 37.5 mg PO DAILY 06/07/18 06/07/18 metFORMIN HCL [metFORMIN HCL ER] 500 mg PO BID 06/07/18 06/07/18 Allergies Allergy/AdvReac Type Severity Reaction Status Date / Time azithromycin Allergy Swelling Verified 06/07/18 21:58 [From Zithromax Z-Brayden] ondansetron HCl Allergy Unknown, Verified 06/07/18 21:58 [From Zofran (as ONLY IN A hydrochloride)] PILL FORM IS IT A PROBLEM Review of Systems ROS Statement: Those systems with pertinent positive or pertinent negative responses have been documented in the HPI. ROS Other: All systems not noted in ROS Statement are negative. Past Medical History Past Medical History: Asthma, Diabetes Mellitus, GERD/Reflux, Hyperlipidemia, Hypertension, Memory Impairment, Seizure Disorder Additional Past Medical History / Comment(s): Migraines. HX kidney stones. diabetic-OFF RX NOW-diet control. LAST SEIZURE 11/23/17. BONE SPURS RT SIDE NECK, hx shattered tailbone, episodes of 'black outs" -cause unknown, NARCOLEPSY. 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 History of Any Multi-Drug Resistant Organisms: None Reported Past Surgical History: Appendectomy, Bowel Resection, Cholecystectomy, Heart Catheterization, Hysterectomy, Tubal Ligation, Uterine Ablation Additional Past Surgical History / Comment(s): CYST REMOVED FROM RIGHT WRIST, pain clinic procedures. Past Anesthesia/Blood Transfusion Reactions: Motion Sickness Type of Cardiac Device: Loop Device Placement Date:: MAR 2009 AND 2013 Past Psychological History: Depression Smoking Status: Former smoker Past Alcohol Use History: None Reported Past Drug Use History: None Reported - Past Family History Mother Family Medical History: No Reported History Father Family Medical History: Cancer General Exam Limitations: no limitations General appearance: alert, in no apparent distress Head exam: Present: atraumatic, normocephalic, normal inspection Eye exam: Present: normal appearance, PERRL, EOMI. Absent: scleral icterus, conjunctival injection, periorbital swelling ENT exam: Present: normal exam, mucous membranes moist Neck exam: Present: normal inspection. Absent: tenderness, meningismus, lymphadenopathy Respiratory exam: Present: normal lung sounds bilaterally. Absent: respiratory distress, wheezes, rales, rhonchi, stridor Cardiovascular Exam: Present: regular rate, normal rhythm, normal heart sounds. Absent: systolic murmur, diastolic murmur, rubs, gallop, clicks GI/Abdominal exam: Present: soft, normal bowel sounds. Absent: distended, tenderness, guarding, rebound, rigid Extremities exam: Present: normal inspection, full ROM, normal capillary refill. Absent: tenderness, pedal edema, joint swelling, calf tenderness Back exam: Present: normal inspection Neurological exam: Present: alert, oriented X3, CN II-XII intact Psychiatric exam: Present: normal affect, normal mood Skin exam: Present: warm, dry, intact, normal color. Absent: rash Course Vital Signs 06/07/18 06/07/18 06/07/18 21:25 22:16 23:53 Temperature 97.9 F Pulse Rate 110 H 109 H 99 Respiratory 18 21 19 Rate Blood Pressure 154/95 134/93 128/52 O2 Sat by Pulse 100 99 97 Oximetry - Reevaluation(s) Reevaluation #1: Medical record is reviewed Patient is without significant similar complaint currently. Patient discussed at length regarding medication changes, is agreeable, questions answered Medical Decision Making - Medical Decision Making 40 female the ER for evaluation of recurrent abdominal illness nausea vomiting diarrhea vaginal issues with medication complaint. Patient has no acute findings here in the emergency room, feeling better, patient can be discharged - Lab Data Result diagrams: 06/07/18 22:00 06/07/18 22:00 Lab Results 06/07/18 06/07/18 06/07/18 Range/Units 22:00 22:00 22:00 WBC 7.9 (3.8-10.6) k/uL RBC 4.41 (3.80-5.40) m/uL Hgb 13.6 (11.4-16.0) gm/dL Hct 40.7 (34.0-46.0) % MCV 92.3 (80.0-100.0) fL MCH 30.8 (25.0-35.0) pg MCHC 33.4 (31.0-37.0) g/dL RDW 13.2 (11.5-15.5) % Plt Count 304 (150-450) k/uL Neutrophils % 62 % Lymphocytes % 27 % Monocytes % 6 % Eosinophils % 4 % Basophils % 1 % Neutrophils # 4.8 (1.3-7.7) k/uL Lymphocytes # 2.1 (1.0-4.8) k/uL Monocytes # 0.5 (0-1.0) k/uL Eosinophils # 0.3 (0-0.7) k/uL Basophils # 0.1 (0-0.2) k/uL PT (9.0-12.0) sec INR (<1.2) APTT (22.0-30.0) sec Sodium 138 (137-145) mmol/L Potassium 4.1 (3.5-5.1) mmol/L Chloride 102 (98-107) mmol/L Carbon Dioxide 26 (22-30) mmol/L Anion Gap 10 mmol/L BUN 11 (7-17) mg/dL Creatinine 0.66 (0.52-1.04) mg/dL Est GFR (CKD-EPI)AfAm >90 (>60 ml/min/1.73 sqM) Est GFR (CKD-EPI)NonAf >90 (>60 ml/min/1.73 sqM) Glucose 101 H (74-99) mg/dL Plasma Lactic Acid Hans (0.7-2.0) mmol/L Calcium 9.4 (8.4-10.2) mg/dL Phosphorus 3.0 (2.5-4.5) mg/dL Magnesium 1.9 (1.6-2.3) mg/dL Total Bilirubin 0.1 L (0.2-1.3) mg/dL AST 28 (14-36) U/L ALT 52 (9-52) U/L Alkaline Phosphatase 76 (38-126) U/L Total Creatine Kinase 53 (30-135) U/L CK-MB (CK-2) <0.2 (0.0-2.4) ng/mL CK-MB (CK-2) Rel Index Troponin I <0.012 (0.000-0.034) ng/mL Total Protein 7.9 (6.3-8.2) g/dL Albumin 4.3 (3.5-5.0) g/dL Urine Color Urine Appearance (Clear) Urine pH (5.0-8.0) Ur Specific [place] (1.001-1.035) Urine Protein (Negative) Urine Glucose (UA) (Negative) Urine Ketones (Negative) Urine Blood (Negative) Urine Nitrite (Negative) Urine Bilirubin (Negative) Urine Urobilinogen (<2.0) mg/dL Ur Leukocyte Esterase (Negative) Urine RBC (0-5) /hpf Urine WBC (0-5) /hpf Ur Squamous Epith Cells (0-4) /hpf Urine Bacteria (None) /hpf Urine Mucus (None) /hpf 06/07/18 06/07/18 06/07/18 Range/Units 22:00 22:00 23:00 WBC (3.8-10.6) k/uL RBC (3.80-5.40) m/uL Hgb (11.4-16.0) gm/dL Hct (34.0-46.0) % MCV (80.0-100.0) fL MCH (25.0-35.0) pg MCHC (31.0-37.0) g/dL RDW (11.5-15.5) % Plt Count (150-450) k/uL Neutrophils % % Lymphocytes % % Monocytes % % Eosinophils % % Basophils % % Neutrophils # (1.3-7.7) k/uL Lymphocytes # (1.0-4.8) k/uL Monocytes # (0-1.0) k/uL Eosinophils # (0-0.7) k/uL Basophils # (0-0.2) k/uL PT 10.4 (9.0-12.0) sec INR 1.0 (<1.2) APTT 24.3 (22.0-30.0) sec Sodium (137-145) mmol/L Potassium (3.5-5.1) mmol/L Chloride (98-107) mmol/L Carbon Dioxide (22-30) mmol/L Anion Gap mmol/L BUN (7-17) mg/dL Creatinine (0.52-1.04) mg/dL Est GFR (CKD-EPI)AfAm (>60 ml/min/1.73 sqM) Est GFR (CKD-EPI)NonAf (>60 ml/min/1.73 sqM) Glucose (74-99) mg/dL Plasma Lactic Acid Hans 1.9 (0.7-2.0) mmol/L Calcium (8.4-10.2) mg/dL Phosphorus (2.5-4.5) mg/dL Magnesium (1.6-2.3) mg/dL Total Bilirubin (0.2-1.3) mg/dL AST (14-36) U/L ALT (9-52) U/L Alkaline Phosphatase (38-126) U/L Total Creatine Kinase (30-135) U/L CK-MB (CK-2) (0.0-2.4) ng/mL CK-MB (CK-2) Rel Index Troponin I (0.000-0.034) ng/mL Total Protein (6.3-8.2) g/dL Albumin (3.5-5.0) g/dL Urine Color Light Yellow Urine Appearance Clear (Clear) Urine pH 8.0 (5.0-8.0) Ur Specific [place] 1.005 (1.001-1.035) Urine Protein Negative (Negative) Urine Glucose (UA) Negative (Negative) Urine Ketones Negative (Negative) Urine Blood Negative (Negative) Urine Nitrite Negative (Negative) Urine Bilirubin Negative (Negative) Urine Urobilinogen <2.0 (<2.0) mg/dL Ur Leukocyte Esterase Moderate H (Negative) Urine RBC 1 (0-5) /hpf Urine WBC 7 H (0-5) /hpf Ur Squamous Epith Cells 1 (0-4) /hpf Urine Bacteria Rare H (None) /hpf Urine Mucus Rare H (None) /hpf - EKG Data -: EKG Interpreted by Me (EKG shows sinus tachycardia rate of 102, CO 138, QRS 84, QTc 450) Disposition Clinical Impression: Vaginitis Disposition: HOME SELF-CARE Condition: Good Instructions: Vaginitis (ED) Is patient prescribed a controlled substance at d/c from ED?: No Referrals: Connor King Jr, DO [Primary Care Provider] - 1-2 days
[2018-06-07 22:25] LABS: Basophils # (A) 0.1 k/uL (0-0.2); Basophils % (A) 1 %; Eosinophils # (A) 0.3 k/uL (0-0.7); Eosinophils % (A) 4 %; HCT 40.7 % (34.0-46.0); HGB 13.6 gm/dL (11.4-16.0); Lymphocytes # (A) 2.1 k/uL (1.0-4.8); Lymphocytes % (A) 27 %; MCH 30.8 pg (25.0-35.0); MCHC 33.4 g/dL (31.0-37.0); MCV 92.3 fL (80.0-100.0); Mean Platelet Volume 6.8; Monocytes # (A) 0.5 k/uL (0-1.0); Monocytes % (A) 6 %; Neutrophils # (A) 4.8 k/uL (1.3-7.7); Neutrophils % (A) 62 %; Platelet Count 304 k/uL (150-450); RBC 4.41 m/uL (3.80-5.40); RDW 13.2 % (11.5-15.5); WBC 7.9 k/uL (3.8-10.6)
[2018-06-07 22:37] LABS: ALT 52 U/L (9-52); AST 28 U/L (14-36); Albumin 4.3 g/dL (3.5-5.0); Alkaline Phosphatase 76 U/L (38-126); Anion Gap 10 mmol/L; Blood Urea Nitrogen 11 mg/dL (7-17); Calcium 9.4 mg/dL (8.4-10.2); Carbon Dioxide 26 mmol/L (22-30); Chloride 102 mmol/L (98-107); Glucose 101 mg/dL (74-99); Magnesium 1.9 mg/dL (1.6-2.3); Potassium 4.1 mmol/L (3.5-5.1); Sodium 138 mmol/L (137-145); Total Bilirubin 0.1 mg/dL (0.2-1.3); Total Protein 7.9 g/dL (6.3-8.2)
[2018-06-07 22:39] LABS: Partial Thromboplastin Time 24.3 sec (22.0-30.0); Prothrombin Time 10.4 sec (9.0-12.0)
[2018-06-07 22:44] LABS: Creatine Kinase 53 U/L (30-135)
[2018-06-07 22:57] LABS: Creatine Kinase MB <0.2 ng/mL (0.0-2.4); Troponin I <0.012 ng/mL (0.000-0.034)
[2018-06-07 23:30] LABS: Appearance,Urine Clear (Clear); Bacteria,Urine Rare /hpf; Bilirubin,Urine Negative (Negative); Blood,Urine Negative (Negative); Color,Urine Light Yellow; Glucose,Urine (UA) Negative (Negative); Ketones,Urine Negative (Negative); Leukocyte Esterase,Urine Moderate (Negative); Mucus,Urine Rare /hpf; Nitrite,Urine Negative (Negative); Protein,Urine Negative (Negative); RBC,Urine 1 /hpf (0-5); Specific Gravity,Urine 1.005 (1.001-1.035); Squamous Epithelial Cell,Urine 1 /hpf (0-4); Urobilinogen,Urine <2.0 mg/dL (<2.0); WBC,Urine 7 /hpf (0-5)
[2018-06-07 23:55] VITALS: BP 128/52; PULSE 99; RESP 19
[2018-06-08] MEDS ORDERED: metroNIDAZOLE 500 MG TAB PO STA (00:02)
--- NOTE | 2018-06-10 03:11 | CDI ---
Documentation Clarification OP Dear Dr.Roskopp Mitchell Please do addendum to ED report for missing HPI and Physical examination. Thank you, Camryn Lowe Window Clerk If you have any questions, please contact Bridge/Structure Inspection Team Leader at [phone] [facility]
== END 2018-06-08 00:24 | disposition home or self-care (01) ==
LOC: EC 21:19
DX: N76.0 Acute vaginitis (principal); R11.2 Nausea with vomiting, unspecified; R19.7 Diarrhea, unspecified; J45.909 Unspecified asthma, uncomplicated; E11.9 Type 2 diabetes mellitus without complications; K21.9 Gastro-esophageal reflux disease without esophagitis; E78.5 Hyperlipidemia, unspecified; I10 Essential (primary) hypertension; F32.9 Major depressive disorder, single episode, unspecified; G40.409 Other generalized epilepsy and epileptic syndromes, not intractable, without status epilepticus; Z87.442 Personal history of urinary calculi; Z87.19 Personal history of other diseases of the digestive system; Z90.49 Acquired absence of other specified parts of digestive tract; Z98.890 Other specified postprocedural states; Z95.818 Presence of other cardiac implants and grafts; Z90.710 Acquired absence of both cervix and uterus; Z98.51 Tubal ligation status; Z87.891 Personal history of nicotine dependence; Z79.1 Long term (current) use of non-steroidal anti-inflammatories (NSAID); Z79.84 Long term (current) use of oral hypoglycemic drugs; Z79.899 Other long term (current) drug therapy; Z88.1 Allergy status to other antibiotic agents; Z88.8 Allergy status to other drugs, medicaments and biological substances
CPT/HCPCS: 36415; 93005; 80053; 82550; 82553; 83605; 83735; 84100; 84484; 85025; 85610; 85730; 81001; 87086; 99284; 96374; 96361 ×2; J2270

== ENCOUNTER → 2018-06-26 | Outpatient (CLI) | payer OTHER ==
[2018-06-26 09:23] LABS: Blood Urea Nitrogen 10 mg/dL (7-17)
--- NOTE | 2018-06-26 10:34 | CT ---
EXAMINATION TYPE: CT abdomen w con DATE OF EXAM: 06/26/2018 HISTORY: Diverticulosis of large intestine CT DLP: 1100.80mGycm Automated Exposure Control for Dose Reduction was Utilized. CONTRAST: CT scan of the abdomen is performed with IV Contrast, patient injected with 100 ml mL of Isovue 300. COMPARISON: 05/13/2016 FINDINGS: LUNG BASES: There is a new groundglass opacity in the left lung base on series 4 image 9 measuring 1. 6 cm. Additionally there are subpleural pulmonary nodules in the left lower lobe measuring 7 mm and 3 mm on series 4 image 11 and 17 respectively. Within the right middle lobe there is a 4 mm pulmonary nodule that is solid in appearance on image 11. These appear unchanged from the prior of 2016.. LIVER/GB: Hepatic parenchyma is diffusely hypoattenuated in comparison to that of the spleen, most co mmonly seen in hepatic steatosis. This finding limits evaluation for hepatic masses. No gross evidenc e of hepatic mass is seen. No intrahepatic biliary ductal dilatation. Gallbladder surgically absent. PANCREAS: No significant abnormality is seen. SPLEEN: No significant abnormality is seen. ADRENALS: No significant abnormality is seen. KIDNEYS: Prominent column of Tonio is noted within the right kidney. BOWEL: Few colonic diverticula are seen within the descending colon without pericolonic fat stranding . No dilated large or small bowel.. LYMPH NODES: No greater than 1cm abdominal or pelvic lymph nodes are appreciated. OSSEOUS STRUCTURES: Minimal multilevel degenerative changes are seen of the spine. IMPRESSION: 1. Sigmoid colon is not appreciated nor is the rectum on this CT abdomen only exam. Scattered diverti cula are present within the descending colon without acute inflammatory change. No active diverticuli tis. 2. New 1.6 cm groundglass opacity in the left lower lobe in addition to stable pulmonary nodules. Thi s groundglass region could be on the basis of inflammatory or infectious pneumonitis or neoplasm such as bronchoalveolar carcinoma. Short-term follow-up is recommended with CT chest in 3 months. 3. Hepatic steatosis.
== END | disposition home or self-care (01) ==
LOC: RADCTMAIN 08:43
PROVIDERS: ATTEND Family Medicine
DX: K57.30 Diverticulosis of large intestine without perforation or abscess without bleeding (principal); K76.0 Fatty (change of) liver, not elsewhere classified
CPT/HCPCS: 82565; 84520; 74160; Q9967

== ENCOUNTER → 2018-07-02 | Outpatient (CLI) | payer OTHER ==
[2018-07-02 11:49] VITALS: BP 123/74; PULSE 97; RESP 16
--- NOTE | 2018-07-02 12:17 | P.PN ---
Subjective Progress Note Date: 07/02/18 This is 48 years old female with a chronic history of severe neck pain , she is diagnosed with cervical spondylosis , she reported that her low back pain improved significantly after the radiofrequency ablation of the median branch cervical area, likely patient complaining from severe low back pain with radiation to the lower extremity, mainly to the left side, MRI of the lumbar spine showed patient had L4 5 and L5-S1 disc bulging , she denies any motor or sensory deficits, no fever or night sweats, Patient continued to use [place] 10/325 every 8 hours, Neurontin 400 mg every 8 hours, Flexeril 10 mg 3 times a day, Motrin 800 mg 3 times a day, she is getting prescription refills from her primary care Physical Examinations : 1-Constitutiona : Cooperative , not in acute distress . 2-HEENT : nech ; supple , no Lymphadenopathy , normal thyroid size . eyes : no ptosis , no icterus , no photophobia . ENT : normal of hearing , normal oropharynx , no Thrush . 3- Respiratory : Chest clear to auscultations Bilaterally , no wheezing , no Rhonchi . 4- Cardiovascular : regular rate and rhythem , S1 , S2 , no S3 , no S4. 5- Gastrointestinal : abdomen soft no tenderness , bowel sounds , no organomegally . 6- Genitourinary : Defferred . 7- neurologic : Cranial nerve II to XII intact , no focal neurological deffecit . 8-psychatric : alert , oriented X 3 , appropriate affect , intact judgment and insight . 9-Lymphatic : no Lymphadenopathy . 10- musculoskeltal : Cervical Spine motor stregnth in the deltoid and biceps, normal right side , normal Left side motor stregnth biceps and the wrist extensors normal right side ,normal left side . motor stregnth in the triceps muscle . normal Right side , normal Left side deep tendon reflexes normal at the biceps , normal at Brachioradialis , normal at triceps. positive cervical facet loading test on the right side. multiple trigger points identified in the cervical paravertebral muscles on the right side. Cervical spine examination showed no erythema, no discharge Lumber spine moter stegnth lower extremities ,thigh and legs 5/5 Right side , 5/5 Left side Straight leg raising test negative bilaterally Jama test negative bilaterally, Normal motor strength and normal sensation in the lower extremity bilaterally Back flexion and extension decreased significantly. Facet loading test positive bilaterally Assessment and plan= 48 years old female with a history of chronic severe neck pain secondary to cervical herniated disc disease, cervical spondylosis Neck pain improved after the radiofrequency and after the cervical epidural steroid injection. Currently , the main problem lumbar bulging disc disease, patient will be good candidate to have lumbar epidural steroid injection at L5-S1 left-sided paramedian approach Clinically patient had symptoms of lumbar facetogenic pain, if she had no benefit after lumbar epidural steroid injection then we will Do diagnostic medial branch block that it could be followed the RFA if it's positive Patient should continue her current medication she is getting prescription refills from her primary care PQRS Measure Charge Sheet Measure #130: Documentation of Current Meds in Medical Chart: Patient's medications documented in chart Measure #226: Tobacco Use: Screen & Cessation Intervention: Pt not a tobacco user Measure #111: Pneumonia Vaccination: Pneumococcal vaccine administered or previously received Measure #47: Advance Care Plan: Advance care planning discussed & documented, pt chose/unable to give Measure #412: Opioid Treatment Agreement: No documentation of signed opioid treatment agreement Measure #408: Opioid Therapy Follow-up Evaluation: Patient had NO f/u eval minimum every 3 months during opioid therapy Measure #317: Preventitive Care & Scrn High Bld Press & F/U: Normal blood pressure, f/u not required Measure #128: Body Mass Index (BMI) Screening & Follow-up: BMI documented ABOVE normal parameters - f/u documented Measure #131: Pain Assessment & Follow-up: Pain positive & plan documented, Follow-up scheduled Measure #431: Unhealthy Alcohol Use Preventative Care & Scrn: Patient not identified as an unhealthy alcohol user PQRS Narrative: - Controlled Substance Measures Is patient prescribed a controlled substance at discharge?: No When asked, does pt state using other controlled substances?: No If prescribed controlled substance>3 days was MAPS reviewed?: No If Rx opioid, was Start Talking consent form obtained?: No If opioid is for acute pain is fill amount 7 days or less?: No Was information provided regarding opioid addiction?: No Objective - Vital Signs Vital signs: Vital Signs Temp Pulse 97 07/02/18 11:41 Resp 16 07/02/18 11:41 BP 123/74 07/02/18 11:41 Pulse Ox 100 07/02/18 11:41 Intake & Output 07/01/18 07/02/18 07/02/18 18:59 06:59 18:59 Weight 81.647 kg
== END ==
LOC: PNWHC3 11:32
PROVIDERS: ATTEND Specialist
DX: G89.29 Other chronic pain (principal); M50.20 Other cervical disc displacement, unspecified cervical region; M47.812 Spondylosis without myelopathy or radiculopathy, cervical region; Z79.899 Other long term (current) drug therapy; Z79.1 Long term (current) use of non-steroidal anti-inflammatories (NSAID)
CPT/HCPCS: 99211

== ENCOUNTER 2018-07-03 06:44 | Day surgery (SDC) | payer OTHER ==
[~2018-07-03 06:44] MED LIST changes: +LIDOCAINE 1% 20 ML VIAL (10MG/ML) FOR IV START INTRADERMA PRN
[2018-07-03 07:24] VITALS: RESP 18; TEMP 97.8
[2018-07-03] MEDS ORDERED: PROPOFOL 10 MG/ML 20 ML VIAL IV ONE (07:43)
[2018-07-03] MEDS ORDERED: LIDOCAINE 1% INJ 10MG/ML (20 ML MDV) ONE (07:43)
[2018-07-03 07:53] LABS: Glucose,Whole Blood 62 mg/dL (75-99)
--- NOTE | 2018-07-03 07:57 | P.GSHP ---
History of Present Illness H&P Date: 07/03/18 Chief Complaint: Epigastric pain This is a 40-year-old female sent complaints of epigastric pain. Patient's today for EGD to evaluate for possible gastritis. Past Medical History Past Medical History: Asthma, Diabetes Mellitus, GERD/Reflux, Hyperlipidemia, Hypertension, Memory Impairment, Seizure Disorder Additional Past Medical History / Comment(s): Migraines. HX kidney stones. . LAST SEIZURE 11/23/17. BONE SPURS RT SIDE NECK. Hhx shattered tailbone. Episodes of 'black outs" -cause unknown, NARCOLEPSY. 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 History of Any Multi-Drug Resistant Organisms: None Reported Past Surgical History: Appendectomy, Bowel Resection, Cholecystectomy, Heart Catheterization, Hysterectomy, Tubal Ligation, Uterine Ablation Additional Past Surgical History / Comment(s): CYST REMOVED FROM RIGHT WRIST, pain clinic procedures. Past Anesthesia/Blood Transfusion Reactions: Motion Sickness Type of Cardiac Device: Loop Device Placement Date:: MAR 2009 AND 2013 Past Psychological History: Depression Smoking Status: Former smoker Past Alcohol Use History: None Reported Additional Past Alcohol Use History / Comment(s): SMOKED 4 YEARS LIGHTLY, QUIT IN 2006. Past Drug Use History: None Reported - Past Family History Mother Family Medical History: No Reported History Father Family Medical History: Cancer Medications and Allergies Home Medications Medication Instructions Recorded Confirmed Type Docusate Sodium [Dulcolax Stool 100 mg PO HS 03/03/14 07/03/18 History Softener] Citalopram Hydrobromide [CeleXA] 20 mg PO QAM 04/03/14 07/03/18 History Omeprazole [PriLOSEC] 20 mg PO BID 04/03/14 07/03/18 History clonazePAM [Clonazepam] 2 mg PO HS 10/12/14 07/03/18 History Albuterol Inhaler [Ventolin 2 puff INHALATION RT-QID PRN 11/23/14 07/03/18 History Inhaler] Cyclobenzaprine [Flexeril] 10 mg PO TID 02/02/15 07/03/18 History Azelastine HCl [Optivar 0.05% 1 drop BOTH EYES DAILY 06/12/16 07/03/18 History Ophth Soln] Fenofibrate 160 mg PO HS 06/12/16 07/03/18 History Ibuprofen [Motrin] 800 mg PO TID 06/12/16 07/03/18 History OXcarbazepine [Oxtellar Xr] 900 mg PO HS 06/12/16 07/03/18 History Oxybutynin Chloride [Ditropan] 5 mg PO BID 06/12/16 07/03/18 History Prochlorperazine [Compazine] 10 mg PO TID 06/12/16 07/03/18 History Verapamil HCl [Verapamil ER] 120 mg PO QAM 06/12/16 07/03/18 History Cetirizine HCl 10 mg PO DAILY 05/01/17 07/03/18 History Lidocaine 4% Cream [Lmx 4] 1 applic TOPICAL BID 03/05/18 07/03/18 History Losartan [Cozaar] 50 mg PO QAM 03/05/18 07/03/18 History Fluticasone Nasal [place] [Flonase 1 spray EA NOSTRIL DAILY 06/07/18 07/03/18 History Nasal [place]] Gabapentin 600 mg PO TID 06/07/18 07/03/18 History Loratadine 10 mg PO DAILY 06/07/18 07/03/18 History metFORMIN HCL [metFORMIN HCL ER] 500 mg PO BID 06/07/18 07/03/18 History Allergies Allergy/AdvReac Type Severity Reaction Status Date / Time azithromycin Allergy Swelling Verified 07/02/18 11:39 [From Zithromax Z-Brayden] ondansetron HCl Allergy Unknown, Verified 07/02/18 11:39 [From Zofran (as ONLY IN A hydrochloride)] PILL FORM IS IT A PROBLEM Surgical - Exam Vital Signs Temp Pulse Resp BP Pulse Ox 97.8 F 94 18 120/59 97 07/03/18 07:19 07/03/18 07:19 07/03/18 07:19 07/03/18 07:19 07/03/18 07:19 - General well developed, well nourished, no distress - Eyes PERRL - ENT normal pinna - Neck no masses - Respiratory normal expansion - Cardiovascular Rhythm: regular - Abdomen minimal epigastric tenderness Abdomen: soft, non tender Results - Labs Abnormal Lab Results - Last 24 Hours (Table) 07/03/18 Range/Units 07:22 POC Glucose (mg/dL) 62 L (75-99) mg/dL Assessment and Plan Assessment: Epigastric pain Gastritis We'll perform EGD.
--- NOTE | 2018-07-03 08:03 | P.OP ---
Date of Procedure: 07/03/18 Preoperative Diagnosis: Epigastric pain Postoperative Diagnosis: Moderate antral gastritis Procedure(s) Performed: EGD Anesthesia: MAC Surgeon: Michael Gong Pathology: other (Antrum) Condition: stable Disposition: PACU Description of Procedure: The patient's placed on the endoscopy table in the lateral position. She received IV sedation. The gastroscope placed oropharynx and passed in the esophagus and into the stomach. The scope was then placed through the pylorus. The first and second portion of the duodenum appeared normal. Scope was then brought back the antrum and this appeared moderately inflamed. A biopsies was performed. There was watermelon striping of the antrum. The scope was unretroflexed and remainder of the stomach appeared normal. There is no significant hiatal hernia. There is no evidence of esophagitis. The GE junction was at 40 cm. The distal esophagus appeared. The proximal esophagus appeared normal. The scope was withdrawn for patient.
[2018-07-03 08:32] VITALS: BP 125/88; PULSE 89
== END 2018-07-03 09:11 | disposition home or self-care (01) ==
LOC: ORWHC2ENDO 06:44
PROVIDERS: ATTEND Surgery
DX: K29.50 Unspecified chronic gastritis without bleeding (principal); E11.9 Type 2 diabetes mellitus without complications; K21.9 Gastro-esophageal reflux disease without esophagitis; E78.5 Hyperlipidemia, unspecified; I10 Essential (primary) hypertension; R41.3 Other amnesia; G40.909 Epilepsy, unspecified, not intractable, without status epilepticus; G43.909 Migraine, unspecified, not intractable, without status migrainosus; G47.419 Narcolepsy without cataplexy; F32.9 Major depressive disorder, single episode, unspecified; J44.9 Chronic obstructive pulmonary disease, unspecified; Z79.84 Long term (current) use of oral hypoglycemic drugs; Z79.1 Long term (current) use of non-steroidal anti-inflammatories (NSAID); Z79.899 Other long term (current) drug therapy; Z88.1 Allergy status to other antibiotic agents; Z88.8 Allergy status to other drugs, medicaments and biological substances; Z90.49 Acquired absence of other specified parts of digestive tract; Z90.710 Acquired absence of both cervix and uterus; Z98.51 Tubal ligation status; Z87.891 Personal history of nicotine dependence; Z87.442 Personal history of urinary calculi; Z87.19 Personal history of other diseases of the digestive system
CPT/HCPCS: 88305; 43239; J2001; J2704

== ENCOUNTER 2018-07-15 08:52 | Day surgery (SDC) | payer OTHER ==
[2018-07-11 12:54] VITALS: BMI 34.0
[~2018-07-15 08:52] MED LIST changes: -LACTATED RINGERS 1,000 ML IV SCH; -LIDOCAINE 1% 20 ML VIAL (10MG/ML) FOR IV START INTRADERMA PRN; +SODIUM CHLORIDE 0.9% 500 ML 500 ML IV SCH
[2018-07-15 09:10] VITALS: RESP 18; TEMP 97.7
[2018-07-15] MEDS ORDERED: LACTATED RINGERS 1,000 ML IV ONE (09:10)
[2018-07-15] MEDS ORDERED: LIDOCAINE 1% 20 ML VIAL (10MG/ML) FOR IV START INTRADERMA ONE (09:20)
[2018-07-15 10:20] LABS: Glucose,Whole Blood 80 mg/dL (75-99)
--- NOTE | 2018-07-15 10:32 | P.PCN ---
Date of Procedure: 07/15/18 Procedure(s) Performed: PREOPERATIVE DIAGNOSIS: 1- Lumbar Degenerative Disc Diseases POSTOPERATIVE DIAGNOSIS: 1-Lumber Degenerative Disc Diseases PROCEDURE 1. Lumbar epidural steroid injection under fluoroscopic guidance at the L5-S1 level. 2. Lumbar epidurogram. ANESTHESIA: Local with 1% lidocaine 3 ml and , moderate sedation with intravenous Versed 2 mg ,and fentanyle 50 Mcg EBL: Minimal PROCEDURE INDICATION: The patient with low back pain and radiculitis symptoms unresponsive to conservative treatment. Fluoroscopy was used to optimize visualization of the needle placement and to maximize safety. PROCEDURE DESCRIPTION / TECHNIQUE: The patient was seen and identified in the preoperative area. Risks, benefits , complications including but not limited to infections ,bleeding ,allergic reaction to the medications ,nerve damage and not complete pain releife , and alternatives were discussed with the patient. The patient agreed to proceed with the procedure and signed the consent. IV was started, and vital signs were stable. Patient was taken to the OR and time out was completed. The patient was placed in the prone position on procedure table and a pillow was placed under the abdomen to reduce lumbar lordosis. The lumbosacral area was prepped and draped in the usual sterile fashion.ere closely monitored during the procedure. Conscious sedation was used during the procedure to decrease patients anxiety. Vital signs was monitered during the entire procedure. Using anterior-posterior fluoroscopy, the L5-S1 interlaminar space was identified and the skin over this site was marked and then infiltrated with 1% lidocaine subcutaneously. Subsequently, a 20-gauge Tuohy epidural needle was inserted and advanced toward the epidural space using the ``Loss of resistance technique and guided by AP and lateral fluoroscopy. The correct needle position in the epidural space was verified with the injection of 2 mL of the water soluble contrast dye Isovue 200 contrast and observing an excellent epidurogram with the epidural spread of the dye, after negative aspiration for blood and CSF and in the absence of paresthesias. Again after negative aspiration, a 6 ml mixture containing 60 mg of Depo-medrol , and 2 ml of preservative free Normal Saline, and 2 ml of preservative free lidocaine 1% solution was injected and a washout of epidurogram was seen. Needle was withdrawn intact, skin was cleansed, and bandages were applied. COMPLICATIONS: None DISPOSITION / PLANS: The patient was placed in a supine position and transferred to the recovery area in a stable condition for observation. There was no evidence of lower extremity motor or sensory deficit after the procedure. Patient was discharged from the recovery room after meeting discharge criteria. Home discharge instructions were given to the patient by the staff. The patient was reexamined prior to discharge. The patient will schedule a follow up in the clinic in 2-4 weeks.
[2018-07-15] MEDS ORDERED: IV FLUID CONTINUATION 475 ML IV ONE (10:38)
[2018-07-15 11:03] VITALS: BP 118/75; PULSE 83
--- NOTE | 2018-07-15 13:57 | FL ---
EXAMINATION TYPE: FL guided pain mgmt statistic DATE OF EXAM: 07/15/2018 HISTORY: Flouroscopy time 1 seconds of fluoroscopy provided. IMPRESSION: 1. Fluoroscopy time.
== END 2018-07-15 11:10 | disposition home or self-care (01) ==
LOC: ORPAIN 08:52
PROVIDERS: ATTEND Specialist
DX: M51.16 Intervertebral disc disorders with radiculopathy, lumbar region (principal); M47.812 Spondylosis without myelopathy or radiculopathy, cervical region
CPT/HCPCS: 62323; J2250; J1030; J3010; Q9966

== ENCOUNTER 2018-08-01 08:23 | Day surgery (SDC) | payer OTHER ==
[2018-07-30 14:50] VITALS: BMI 34.0
[2018-08-01 08:56] VITALS: TEMP 98.2
[2018-08-01] MEDS ORDERED: LACTATED RINGERS 1,000 ML IV ONE (09:05)
[2018-08-01] MEDS ORDERED: LIDOCAINE 1% 20 ML VIAL (10MG/ML) FOR IV START INTRADERMA ONE (09:06)
[2018-08-01 09:18] LABS: Glucose,Whole Blood 81 mg/dL (75-99)
--- NOTE | 2018-08-01 10:08 | P.PCN ---
Date of Procedure: 08/01/18 Procedure(s) Performed: PREOPERATIVE DIAGNOSIS: 1- Lumbar Degenerative Disc Diseases POSTOPERATIVE DIAGNOSIS: 1-Lumber Degenerative Disc Diseases PROCEDURE 1. Lumbar epidural steroid injection under fluoroscopic guidance at the L5-S1 level. 2. Lumbar epidurogram. ANESTHESIA: Local with 1% lidocaine 3 ml and , moderate sedation with intravenous Versed 2 mg ,and fentanyle 100 Mcg EBL: Minimal PROCEDURE INDICATION: The patient with low back pain and radiculitis symptoms unresponsive to conservative treatment. Fluoroscopy was used to optimize visualization of the needle placement and to maximize safety. PROCEDURE DESCRIPTION / TECHNIQUE: The patient was seen and identified in the preoperative area. Risks, benefits , complications including but not limited to infections ,bleeding ,allergic reaction to the medications ,nerve damage and not complete pain releife , and alternatives were discussed with the patient. The patient agreed to proceed with the procedure and signed the consent. IV was started, and vital signs were stable. Patient was taken to the OR and time out was completed. The patient was placed in the prone position on procedure table and a pillow was placed under the abdomen to reduce lumbar lordosis. The lumbosacral area was prepped and draped in the usual sterile fashion.ere closely monitored during the procedure. Conscious sedation was used during the procedure to decrease patients anxiety. Vital signs was monitered during the entire procedure. Using anterior-posterior fluoroscopy, the L5-S1 interlaminar space was identified and the skin over this site was marked and then infiltrated with 1% lidocaine subcutaneously. Subsequently, a 20-gauge Tuohy epidural needle was inserted and advanced toward the epidural space using the ``Loss of resistance technique and guided by AP and lateral fluoroscopy. The correct needle position in the epidural space was verified with the injection of 2 mL of the water soluble contrast dye Isovue 200 contrast and observing an excellent epidurogram with the epidural spread of the dye, after negative aspiration for blood and CSF and in the absence of paresthesias. Again after negative aspiration, a 6 ml mixture containing 40 mg of Depo-medrol , and 2 ml of preservative free Normal Saline, and 2 ml of preservative free lidocaine 1% solution was injected and a washout of epidurogram was seen. Needle was withdrawn intact, skin was cleansed, and bandages were applied. COMPLICATIONS: None DISPOSITION / PLANS: The patient was placed in a supine position and transferred to the recovery area in a stable condition for observation. There was no evidence of lower extremity motor or sensory deficit after the procedure. Patient was discharged from the recovery room after meeting discharge criteria. Home discharge instructions were given to the patient by the staff. The patient was reexamined prior to discharge. The patient will schedule a follow up in the clinic in 2-4 weeks.
[2018-08-01] MEDS ORDERED: IV FLUID CONTINUATION 1,000 ML IV ONE (10:16)
--- NOTE | 2018-08-01 10:29 | FL ---
EXAMINATION TYPE: FL guided pain mgmt statistic DATE OF EXAM: 08/01/2018 HISTORY: Flouroscopy time 2 seconds of fluoroscopy provided. IMPRESSION: 1. Fluoroscopy time.
[2018-08-01 10:35] VITALS: BP 122/75; PULSE 90; RESP 18
== END 2018-08-01 10:48 | disposition home or self-care (01) ==
LOC: ORPAIN 08:23
PROVIDERS: ATTEND Anesthesiology
DX: M51.36 Other intervertebral disc degeneration, lumbar region (principal); G40.909 Epilepsy, unspecified, not intractable, without status epilepticus; G47.419 Narcolepsy without cataplexy; Z88.1 Allergy status to other antibiotic agents; Z88.8 Allergy status to other drugs, medicaments and biological substances
CPT/HCPCS: 62323; J2250; J1030; J3010; Q9966

== ENCOUNTER → 2018-08-14 | Outpatient (CLI) | payer OTHER ==
[2018-08-14 14:54] LABS: Blood Urea Nitrogen 9 mg/dL (7-17)
--- NOTE | 2018-08-14 15:32 | CT ---
EXAMINATION TYPE: CT chest w con DATE OF EXAM: 08/14/2018 COMPARISON: CT abdomen dated 06/26/2018 and 05/13/2016. HISTORY: abnormal lung findings on prior abdominal scan CT DLP: 677 mGycm. Automated Exposure Control for Dose Reduction was Utilized. TECHNIQUE: CT scan of the thorax is performed following with IV Contrast, patient injected with 100 mL of Isovue 300. FINDINGS: LUNGS: Right upper lobe 2 mm solid pulmonary nodule is seen on series 4 image 15. 2 mm solid pulmonar y nodule in the right upper lobe is also noted on image 19. 3 mm nodule adjacent to pulmonary vessel in the right upper lobe is present on image 21. Right middle lobe 3 mm pulmonary nodule is seen on im age 34. The additional previously seen left lung base nodule on the exam of 06/26/2018 is not visualize d, possibly due to slice selection. There is improvement in the previously seen left basilar groundgl ass opacity previously measuring 1.6 cm. Although there is no significant change in size there is dec reased attenuation of this on series 3 image 31. On the left lung base there is a 7 mm pulmonary nodule on image 34 and 3 mm nodule on image 27. Minim al strand-like subsegmental atelectasis is present. MEDIASTINUM: There are no greater than 1 cm hilar or mediastinal lymph nodes. No pericardial effusi on is seen. No cardiomegaly. OTHER: Hepatic parenchyma is diffusely hypoattenuated in comparison to that of the spleen, most comm only seen in hepatic steatosis. This finding limits evaluation for hepatic masses. No gross evidence of hepatic mass is seen. No intrahepatic biliary ductal dilatation. Gallbladder surgically absent. St rand-like probable residual thymic tissue seen in the superior anterior mediastinum. Mild multilevel degenerative changes the spine are present. IMPRESSION: Decreased attenuation of the previously seen left basilar groundglass opacity. Although t his is not resolved with a decreased attenuation favors inflammatory or infectious etiology rather th an neoplasm. However surveillance is recommended for both this groundglass neoplasm in the bilateral subcentimeter pulmonary nodules which short-term 6 month follow-up CT chest.
== END ==
LOC: RADCTMAIN 13:57
PROVIDERS: ATTEND Internal Medicine Critical Care Medicine
DX: R91.8 Other nonspecific abnormal finding of lung field (principal); Z88.1 Allergy status to other antibiotic agents; Z88.8 Allergy status to other drugs, medicaments and biological substances
CPT/HCPCS: 82565; 84520; 71260; 36415; Q9967

== ENCOUNTER 2018-08-15 07:17 | Day surgery (SDC) | payer OTHER ==
[2018-08-15 08:17] VITALS: TEMP 98.4
--- NOTE | 2018-08-15 08:23 | P.PCN ---
Date of Procedure: 08/15/18 Anesthesia: MAC (Conscious sedation) Description of Procedure: PREOPERATIVE DIAGNOSIS: 1-lumbar radiculopathy POSTOPERATIVE DIAGNOSIS: Lumbar radiculopathy PROCEDURE 1. Lumbar epidural steroid injection under fluoroscopic guidance at the 5/1 level. 2. Lumbar epidurogram. ANESTHESIA: Local with 1% lidocaine 5 ml and 2 mg of Versed with 50 g of fentanyl EBL: Minimal PROCEDURE INDICATION: The patient with low back pain and radiculitis symptoms unresponsive to conservative treatment. Fluoroscopy was used to optimize visualization of the needle placement and to maximize safety. PROCEDURE DESCRIPTION / TECHNIQUE: The patient was seen and identified in the preoperative area. Risks, benefits , complications including but not limited to infections ,bleeding ,allergic reaction to the medications ,nerve damage and incomplete pain relief , as well as alternatives to the procedure were discussed with the patient. The patient agreed to proceed with the procedure and signed the consent. IV was started, and vital signs were stable. Patient was taken to the OR and time out was completed. The patient was placed in the prone position on procedure table and a pillow was placed under the abdomen to reduce lumbar lordosis. The lumbosacral area was prepped and draped in the usual sterile fashion. Vitals were closely monitored during the procedure. Using anterior-posterior fluoroscopy, the L 5/1 interlaminar space was identified and the skin over this site was marked and then infiltrated with 1% lidocaine subcutaneously. Subsequently, a 20-gauge Tuohy epidural needle was inserted and advanced toward the epidural space using the ``Loss of resistance technique and guided by AP and lateral fluoroscopy. The correct needle position in the epidural space was verified with the injection of 1 mL of the water soluble contrast dye Omnipaque 180 contrast and observing an excellent epidurogram with the epidural spread of the dye, after negative aspiration for blood and CSF and in the absence of paresthesias. Again after negative aspiration, a 4 ml mixture containing 10 mg of Dexamethasone and 3 ml of preservative free Normal Saline was injected and a washout of epidurogram was seen. Needle was withdrawn intact, skin was cleansed, and bandages were applied. COMPLICATIONS: None DISPOSITION / PLANS: The patient was placed in a supine position and transferred to the recovery area in a stable condition for observation. There was no evidence of lower extremity motor or sensory deficit after the procedure. Patient was discharged from the recovery room after meeting discharge criteria. Home discharge instructions were given to the patient by the staff. The patient was reexamined prior to discharge. The patient will schedule a follow up in the clinic in 4 weeks.
[2018-08-15 08:24] LABS: Glucose,Whole Blood 87 mg/dL (75-99)
[2018-08-15] MEDS ORDERED: LACTATED RINGERS 1,000 ML IV ONE (08:25)
[2018-08-15] MEDS ORDERED: IV FLUID CONTINUATION 1,000 ML IV ONE (08:48)
[2018-08-15 08:55] VITALS: RESP 18
[2018-08-15 09:07] VITALS: BP 127/84; PULSE 89
--- NOTE | 2018-08-15 09:35 | FL ---
EXAMINATION TYPE: FL guided pain mgmt statistic DATE OF EXAM: 08/15/2018 HISTORY: Flouroscopy time 1 seconds of fluoroscopy provided. IMPRESSION: 1. Fluoroscopy time.
== END 2018-08-15 09:24 | disposition home or self-care (01) ==
LOC: ORPAIN 07:17
PROVIDERS: ATTEND Hospitalist
DX: M54.16 Radiculopathy, lumbar region (principal); Z88.1 Allergy status to other antibiotic agents; Z88.8 Allergy status to other drugs, medicaments and biological substances
CPT/HCPCS: 62323; J2250; J1100; J3010; Q9966

== ENCOUNTER → 2018-09-11 | Outpatient (CLI) | payer OTHER ==
[2018-09-11 12:07] VITALS: BP 116/77; PULSE 82; RESP 16
--- NOTE | 2018-09-11 13:25 | P.PN ---
Subjective Progress Note Date: 09/11/18 This is a 48-year-old lady with history of neck and lower back pain however she is today for her low back pain. She feels more pain on the right side of her lumbar spine. She also feels numbness in the left leg from time to time that goes all the way down to her foot as she states. She just received an MRI on the lumbar spine which showed: Mild to moderate due to disc disease at multiple levels and hypertrophic facet arthropathy with grade 1 anterolisthesis at L5-S1 level to the right and mild left neural foraminal stenosis at L5-S1 and L4 5. The patient takes 2 pills of [place] 10 mg/day from her neurologist. She states that she had very good results after she received an RFA on the cervical medial branch block previously. Today, pt denies new-onset weakness, bowel/bladder incontinence, or any other signs or symptoms of cauda equina syndrome. There are no signs of acute intoxication, and no indications of medication diversion or overuse. In addition to above, 13-point review of systems is also negative for chest pain, shortness of breath, changes in vision, changes in hearing, new onset weakness, abdominal pain, diarrhea, extreme fatigue, malaise, fever, skin changes, homicidal or suicidal ideation, or bowel or bladder incontinence. Vital Signs: Reviewed in EMR Gen: AAOx3, NAD HEENT: PERRLA,hearing grossly normal Pulm: resp unlabored,CTA Heart:S1,S2, No Mur Neck: supple, trachea midline Neuro exam of the lower extremities: Decreased muscle strength to 4 out of 5 bilaterally and symmetrically. Decreased but symmetrical knee reflexes and normal ankle reflex bilaterally Straight leg raising test: Negative Jama's test: Range of motion of the lumbar spine: Facet loading test: Positive on the right side Tenderness in the paravertebral musculature: Significant on the right side of her lumbar spine Positive tenderness around the right sacroiliac joint Neuro: CN II-XII grossly intact, Imaging: Reviewed in EMR/chart Assessment: Lumbar spondylosis without myelopathy Possible right sacroiliiti obesity Diabetes Plan: 1. Explanation: Opioid and psychological risk scores were reviewed. Diagnoses, prognoses, and multiple treatment options including but not limited to physical therapy, interventional therapies, adjuvant medical therapies, narcotic medication therapies, and surgery were discussed with the patient and all questions were answered to the patient's satisfaction. 2. Opioid agreement: Signed with the patient and the patient is warned not to use opioids while driving or before driving and not to combine opioids with benzodiazepines or alcohol. 3. Counseling: The patient was counseled extensively on SMOKING CESSATION, BODY MASS INDEX, EXERCISE. Specifically, the patient was instructed regarding the importance of smoking cessation, obesity, and exercise in the context of both chronic pain and overall health. 4. Procedures: Scheduled for a right lumbar medial branch block under fluoroscopic guidance using four needles for levels L3 - 4, L4-L5 and L5-S1 5. Consultations: None 6. Investigations: None 7. Medications: No medications from our clinic 8. Disposition: Return to the above-mentioned procedure as soon as possible 9. Maps were reviewed and were appropriate. PQRS measures: 1-Patient's medications are documented in the chart. 2-Tobacco use is negative, counseling given 3-Patient has not had a pneumococcal vaccine. 4-Advanced care planning discussed, patient unable to give 5-Opioid contract not signed with the patient. 6-Pain positive, follow-up visit or procedure scheduled 7-Patient's blood pressure measured and documented within normal limits. 8-Patient's weight was measured, and body mass index ABOVE the normal limits, and counseling was done. Patient instructed to follow up with PCP. 9-Patient WAS NOT identified as an unhealthy alcohol user. Objective - Vital Signs Vital signs: Vital Signs Temp Pulse 82 09/11/18 12:01 Resp 16 09/11/18 12:01 BP 116/77 09/11/18 12:01 Pulse Ox 98 09/11/18 12:01 Intake & Output 09/10/18 09/11/18 09/11/18 18:59 06:59 18:59 Weight 84.822 kg
== END | disposition home or self-care (01) ==
LOC: PNWHC3 11:39
PROVIDERS: ATTEND Anesthesiology
DX: M47.816 Spondylosis without myelopathy or radiculopathy, lumbar region (principal); E11.9 Type 2 diabetes mellitus without complications; E66.9 Obesity, unspecified; Z98.890 Other specified postprocedural states; Z68.35 Body mass index [BMI] 35.0-35.9, adult
CPT/HCPCS: 99211

== ENCOUNTER 2018-09-19 17:38 | Emergency (ER) | payer OTHER ==
[2018-09-19] MEDS ORDERED: SODIUM CHLORIDE 0.9% 1,000 ML IV STA (18:01)
[2018-09-19] MEDS ORDERED: METOCLOPRAMIDE 5 MG/ML 2 ML VIAL IVP STA (18:01)
[2018-09-19] MEDS ORDERED: MORPHINE SULFATE 4 MG/ML SYRINGE IV STA ×2 (18:10→19:38)
--- NOTE | 2018-09-19 18:22 | ED ---
General Adult HPI - General Chief complaint: Abdominal Pain Stated complaint: Abd pain,diarrhea Time Seen by Provider: 09/19/18 17:55 Source: patient, RN notes reviewed, old records reviewed Mode of arrival: ambulatory Limitations: no limitations - History of Present Illness Initial comments: 48-year-old male patient past medical history of asthma, had 2 diabetes, gastric Reflux Disease, Hypertension, Hyperlipidemia, diverticulitis, Presents ED with 2 days of periumbilical abdominal pain, nausea vomiting diarrhea. Patient states that this feels somewhat similar to the colitis and diverticulitis she has had in the past. Patient denies any excessive alcohol use. Patient denies any chest pain shortness of breath. Patient reports some pressure with urination. Patient denies all other complaints. Systemic: Pt denies fatigue, myalgia, fever/chills, rash. Pt denies weakness, night sweats, weight loss. Neuro: Pt denies headache, visual disturbances, syncope or pre-syncope. HEENT: Pt denies ocular discharge or irritation, otalgia, rhinorrhea, p haryngitis or notable lymphadenopathy. Cardiopulmonary: Pt denies chest pain, SOB, heart palpitations, dyspnea on exertion. : Pt denies burning w/ urination, frequency/urgency. Denies new onset urinary or bowel incontinence. MSK: Pt denies myalgia, loss of strength or function in extremities. Neuro: Pt denies new onset weakness, paresthesias. - Related Data Home Medications Medication Instructions Recorded Confirmed Docusate Sodium [Dulcolax Stool 100 mg PO HS 03/03/14 09/19/18 Softener] Citalopram Hydrobromide [CeleXA] 20 mg PO QAM 04/03/14 09/19/18 Omeprazole [PriLOSEC] 20 mg PO BID 04/03/14 09/19/18 clonazePAM [Clonazepam] 2 mg PO HS 10/12/14 09/19/18 Albuterol Inhaler [Ventolin 2 puff INHALATION RT-QID PRN 11/23/14 09/19/18 Inhaler] Cyclobenzaprine [Flexeril] 10 mg PO TID 02/02/15 09/19/18 Azelastine HCl [Optivar 0.05% 1 drop BOTH EYES DAILY 06/12/16 09/19/18 [facility] Fenofibrate 160 mg PO HS 06/12/16 09/19/18 Ibuprofen [Motrin] 800 mg PO TID 06/12/16 09/19/18 OXcarbazepine [Oxtellar Xr] 900 mg PO HS 06/12/16 09/19/18 Oxybutynin Chloride [Ditropan] 5 mg PO BID 06/12/16 09/19/18 Prochlorperazine [Compazine] 10 mg PO TID 06/12/16 09/19/18 Verapamil HCl [Verapamil ER] 120 mg PO QAM 06/12/16 09/19/18 Cetirizine HCl 10 mg PO DAILY 05/01/17 09/19/18 Lidocaine 4% Cream [Lmx 4] 1 applic TOPICAL BID 03/05/18 09/19/18 Losartan [Cozaar] 50 mg PO QAM 03/05/18 09/19/18 Fluticasone Nasal [place] [Flonase 1 spray EA NOSTRIL DAILY 06/07/18 09/19/18 Nasal [place]] Gabapentin 600 mg PO TID 06/07/18 09/19/18 metFORMIN HCL [metFORMIN HCL ER] 500 mg PO BID 06/07/18 09/19/18 Albuterol Nebulized (Conc) 2.5 mg INHALATION RT-DAILY PRN 07/24/18 09/19/18 [Ventolin Nebulized (Conc)] Butalb/APAP/Caff 50-325-40Mg 1 tab PO Q8H PRN 09/19/18 09/19/18 [Fioricet 50-325-40] Famotidine [Pepcid] 40 mg PO DAILY 09/19/18 09/19/18 HYDROcodone/APAP 10-325MG [[place] 1 tab PO BID 09/19/18 09/19/18 10-325] Previous Rx's Medication Instructions Recorded Ondansetron [Zofran] 4 mg PO Q8HR PRN #15 tab 09/19/18 Allergies Allergy/AdvReac Type Severity Reaction Status Date / Time azithromycin Allergy Swelling Verified 09/19/18 18:02 [From Zithromax Z-Brayden] ondansetron HCl Allergy Unknown, Verified 09/19/18 18:02 [From Zofran (as ONLY IN A hydrochloride)] PILL FORM IS IT A PROBLEM Review of Systems ROS Statement: Those systems with pertinent positive or pertinent negative responses have been documented in the HPI. ROS Other: All systems not noted in ROS Statement are negative. Past Medical History Past Medical History: Asthma, Diabetes Mellitus, GERD/Reflux, Hyperlipidemia, Hypertension, Memory Impairment, Seizure Disorder Additional Past Medical History / Comment(s): Migraines. HX kidney stones. . LAST SEIZURE 11/23/17. BONE SPURS RT SIDE NECK. Hhx shattered tailbone. Episodes of 'black outs" -cause unknown, NARCOLEPSY. 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 History of Any Multi-Drug Resistant Organisms: None Reported Past Surgical History: Appendectomy, Bowel Resection, Cholecystectomy, Heart Catheterization, Hysterectomy, Tubal Ligation, Uterine Ablation Additional Past Surgical History / Comment(s): CYST REMOVED FROM RIGHT WRIST, pain clinic procedures. Past Anesthesia/Blood Transfusion Reactions: Motion Sickness Type of Cardiac Device: Loop Device Placement Date:: MAR 2009 AND 2013 Past Psychological History: Depression Smoking Status: Former smoker Past Alcohol Use History: None Reported Past Drug Use History: None Reported - Past Family History Mother Family Medical History: No Reported History Father Family Medical History: Cancer General Exam - General Exam Comments Initial Comments: Constitutional: NAD, AOX3, Pt has pleasant affect. HEENT: NC/AT, trachea midline, neck supple, no lymphadenopathy. Posterior pharynx non erythematous, without exudates. External ears appear normal, without discharge. Mucous membranes moist. Eyes PERRLA, EOM intact. There is no scleral icterus. No pallor noted. Cardiopulmonary: RRR, no murmurs, rubs or gallops, no JVD noted. Lungs CTAB in anterior and posterior capone. No peripheral edema. Abdominal exam: Abdomen soft and non-distended. Abdomen mildly tender to palpation in periumbilical region, no other areas of abdominal tenderness. No guarding, no rigidity, no rebound tenerness. Bowel sounds active in LLQ. No hepatosplenomegaly. No ecchymosis Neuro: CN II-XII grossly intact. No nuchal rigidity. MSK: No posterior calf tenderness bilaterally, homans sign negative bilaterally. Posterior tibialis and radial pulse +2 bilaterally. Sensation intact in upper and lower extremities. Full active ROM in upper and lower extremities, 5/5 stregnth. Limitations: no limitations Course Vital Signs 09/19/18 09/19/18 09/19/18 17:41 19:34 20:24 Temperature 97.4 F L 101.2 F H Pulse Rate 122 H 116 H 120 H Respiratory 20 18 18 Rate Blood Pressure 122/74 146/99 109/57 O2 Sat by Pulse 99 98 99 Oximetry 09/19/18 09/19/18 21:56 22:34 Temperature 101.7 F H 100.2 F H Pulse Rate 120 H Respiratory 16 Rate Blood Pressure 147/101 O2 Sat by Pulse 100 Oximetry Medical Decision Making - Medical Decision Making 48-year-old male patient past medical history of asthma, had 2 diabetes, gastric Reflux Disease, Hypertension, Hyperlipidemia, diverticulitis, Presents ED with 2 days of periumbilical abdominal pain, nausea vomiting diarrhea. Patient states that this feels somewhat similar to the colitis and diverticulitis she has had in the past. Patient denies any excessive alcohol use. Patient denies any chest pain shortness of breath. Patient reports some pressure with urination. Patient denies all other complaints. Patient vital signs displayed mild fever likely secondary to virus. Physical exam displayed mild madina Umbilical abdominal pain. No rebound tenderness, no guarding, no JVD, no ecchymoses. Laboratory investigations revealed non-impressive CBC, CMP. UA negative, hCG negative. Lactic acid within normal limits. CT abdomen and pelvis with contrast displayed mild pain with rotation the liver, no signs acute abdomen no change in visual CT exam. Patient improved with IV fluids, pain medication. Patient likely experiencing a viral gastroenteritis-like syndrome. Patient will discharge with close outpatient follow-up with primary care provider. Patient will use Tylenol and Motrin for fever. Patient will use Zofran as needed for nausea. Patient reported that ALLERGY to Zofran was in fact that she does like the taste of sublingual Zofran. Patient will return to ER if new symptoms develop or if condition worsens in any way. Case discussed with Dr. Sosa. - Lab Data Result diagrams: 09/19/18 18:40 09/19/18 18:40 Lab Results 09/19/18 09/19/18 09/19/18 Range/Units 18:40 18:40 18:40 WBC 7.7 (3.8-10.6) k/uL RBC 5.14 (3.80-5.40) m/uL Hgb 15.4 (11.4-16.0) gm/dL Hct 46.2 H (34.0-46.0) % MCV 89.9 (80.0-100.0) fL MCH 30.0 (25.0-35.0) pg MCHC 33.3 (31.0-37.0) g/dL RDW 12.9 (11.5-15.5) % Plt Count 253 (150-450) k/uL Neutrophils % 86 % Lymphocytes % 7 % Monocytes % 3 % Eosinophils % 3 % Basophils % 0 % Neutrophils # 6.7 (1.3-7.7) k/uL Lymphocytes # 0.5 L (1.0-4.8) k/uL Monocytes # 0.3 (0-1.0) k/uL Eosinophils # 0.2 (0-0.7) k/uL Basophils # 0.0 (0-0.2) k/uL Sodium 137 (137-145) mmol/L Potassium 3.7 (3.5-5.1) mmol/L Chloride 100 (98-107) mmol/L Carbon Dioxide 24 (22-30) mmol/L Anion Gap 13 mmol/L BUN 13 (7-17) mg/dL Creatinine 0.70 (0.52-1.04) mg/dL Est GFR (CKD-EPI)AfAm >90 (>60 ml/min/1.73 sqM) Est GFR (CKD-EPI)NonAf >90 (>60 ml/min/1.73 sqM) Glucose 104 H (74-99) mg/dL Plasma Lactic Acid Hans 1.9 (0.7-2.0) mmol/L Calcium 9.6 (8.4-10.2) mg/dL Magnesium 1.5 L (1.6-2.3) mg/dL Total Bilirubin 0.5 (0.2-1.3) mg/dL AST 32 (14-36) U/L ALT 37 (9-52) U/L Alkaline Phosphatase 59 (38-126) U/L Total Protein 8.4 H (6.3-8.2) g/dL Albumin 4.8 (3.5-5.0) g/dL Lipase 66 (23-300) U/L Urine Color Urine Appearance (Clear) Urine pH (5.0-8.0) Ur Specific [place] (1.001-1.035) Urine Protein (Negative) Urine Glucose (UA) (Negative) Urine Ketones (Negative) Urine Blood (Negative) Urine Nitrite (Negative) Urine Bilirubin (Negative) Urine Urobilinogen (<2.0) mg/dL Ur Leukocyte Esterase (Negative) Urine HCG, Qual (Not Detectd) 09/19/18 09/19/18 Range/Units 20:35 20:35 WBC (3.8-10.6) k/uL RBC (3.80-5.40) m/uL Hgb (11.4-16.0) gm/dL Hct (34.0-46.0) % MCV (80.0-100.0) fL MCH (25.0-35.0) pg MCHC (31.0-37.0) g/dL RDW (11.5-15.5) % Plt Count (150-450) k/uL Neutrophils % % Lymphocytes % % Monocytes % % Eosinophils % % Basophils % % Neutrophils # (1.3-7.7) k/uL Lymphocytes # (1.0-4.8) k/uL Monocytes # (0-1.0) k/uL Eosinophils # (0-0.7) k/uL Basophils # (0-0.2) k/uL Sodium (137-145) mmol/L Potassium (3.5-5.1) mmol/L Chloride (98-107) mmol/L Carbon Dioxide (22-30) mmol/L Anion Gap mmol/L BUN (7-17) mg/dL Creatinine (0.52-1.04) mg/dL Est GFR (CKD-EPI)AfAm (>60 ml/min/1.73 sqM) Est GFR (CKD-EPI)NonAf (>60 ml/min/1.73 sqM) Glucose (74-99) mg/dL Plasma Lactic Acid Hans (0.7-2.0) mmol/L Calcium (8.4-10.2) mg/dL Magnesium (1.6-2.3) mg/dL Total Bilirubin (0.2-1.3) mg/dL AST (14-36) U/L ALT (9-52) U/L Alkaline Phosphatase (38-126) U/L Total Protein (6.3-8.2) g/dL Albumin (3.5-5.0) g/dL Lipase (23-300) U/L Urine Color Yellow Urine Appearance Clear (Clear) Urine pH 7.0 (5.0-8.0) Ur Specific [place] >1.050 H (1.001-1.035) Urine Protein Trace H (Negative) Urine Glucose (UA) Negative (Negative) Urine Ketones Negative (Negative) Urine Blood Negative (Negative) Urine Nitrite Negative (Negative) Urine Bilirubin Negative (Negative) Urine Urobilinogen 3.0 (<2.0) mg/dL Ur Leukocyte Esterase Negative (Negative) Urine HCG, Qual Not Detected (Not Detectd) Disposition Clinical Impression: Abdominal pain Disposition: HOME SELF-CARE Condition: Stable Instructions (If sedation given, give patient instructions): Abdominal Pain (ED) Additional Instructions: Patient to adhere to previously discussed treatment plan and will take medication(s) as directed. Patient to follow up with PCP in 1-2 days. Patient to return to ED if symptoms do not improve. Please follow-up with primary care provider tomorrow. Please return to ER if condition worsens in any way. Prescriptions: Ondansetron [Zofran] 4 mg PO Q8HR PRN #15 tab PRN Reason: Nausea Is patient prescribed a controlled substance at d/c from ED?: No Referrals: Connor King Jr, DO [Primary Care Provider] - 1-2 days
[2018-09-19 18:53] LABS: Basophils % (A) 0 %; Eosinophils # (A) 0.2 k/uL (0-0.7); Eosinophils % (A) 3 %; HCT 46.2 % (34.0-46.0); HGB 15.4 gm/dL (11.4-16.0); Lymphocytes # (A) 0.5 k/uL (1.0-4.8); Lymphocytes % (A) 7 %; MCHC 33.3 g/dL (31.0-37.0); MCV 89.9 fL (80.0-100.0); Mean Platelet Volume 6.5; Monocytes # (A) 0.3 k/uL (0-1.0); Monocytes % (A) 3 %; Neutrophils # (A) 6.7 k/uL (1.3-7.7); Neutrophils % (A) 86 %; Platelet Count 253 k/uL (150-450); RBC 5.14 m/uL (3.80-5.40); RDW 12.9 % (11.5-15.5); WBC 7.7 k/uL (3.8-10.6)
[2018-09-19 19:01] LABS: ALT 37 U/L (9-52); AST 32 U/L (14-36); Albumin 4.8 g/dL (3.5-5.0); Alkaline Phosphatase 59 U/L (38-126); Anion Gap 13 mmol/L; Blood Urea Nitrogen 13 mg/dL (7-17); Calcium 9.6 mg/dL (8.4-10.2); Carbon Dioxide 24 mmol/L (22-30); Chloride 100 mmol/L (98-107); Glucose 104 mg/dL (74-99); Lipase 66 U/L (23-300); Magnesium 1.5 mg/dL (1.6-2.3); Potassium 3.7 mmol/L (3.5-5.1); Sodium 137 mmol/L (137-145); Total Bilirubin 0.5 mg/dL (0.2-1.3); Total Protein 8.4 g/dL (6.3-8.2)
--- NOTE | 2018-09-19 19:52 | CT ---
EXAMINATION TYPE: CT abdomen pelvis w con DATE OF EXAM: 09/19/2018 COMPARISON: 05/13/2016 HISTORY: Generallized pain CT DLP: 1121.7 mGycm Automated exposure control for dose reduction was used. TECHNIQUE: Helical acquisition of images was performed from the lung bases through the pelvis. CONTRAST: Performed without Oral Contrast and with IV Contrast, patient injected with 100 mL of Isovue 300. FINDINGS: Lung bases are clear of consolidation. There is no pleural effusion. There is fatty infiltration of t he liver. Spleen appears normal. Stomach appears normal. There is no pericardial effusion. Heart size is normal. There is no pancreatic mass. There are clips from cholecystectomy. Bile ducts are not dil ated. There is no adrenal mass. Kidneys show satisfactory contrast opacification. There is no hydronephrosi s. Bladder distends smoothly. There is no inguinal hernia. There is no free fluid in the pelvis. There is no mesenteric edema. There is no ascites. There is no free air. There are sigmoid multiple s mall diverticula. There is no sign of diverticulitis. There are apparent surgical clips in the rectos igmoid junction. The lumbar vertebra have normal spacing and alignment. There is narrowing and L5-S1 disc space. There is mild spurring of the endplates. There is no lumbar compression fracture. IMPRESSION: THERE IS MILD FATTY INFILTRATION OF THE LIVER. NO SIGN OF ACUTE ABDOMEN AND PELVIS. APPENDIX NOT SEEN . NO SIGN OF APPENDICITIS. MILD DIVERTICULOSIS. NO ADVERSE CHANGE COMPARED TO OLD CT SCAN 05/13/2016.
[2018-09-19 20:25] VITALS: PULSE 120
[2018-09-19] MEDS ORDERED: ACETAMINOPHEN TAB 500 MG TAB PO STA (20:46)
[2018-09-19] MEDS ORDERED: SODIUM CHLORIDE 0.9% 1,000 ML IV ONE (20:46)
[2018-09-19] MEDS ORDERED: IBUPROFEN 600 MG TAB PO STA (20:48)
[2018-09-19 21:15] LABS: Appearance,Urine Clear (Clear); Bilirubin,Urine Negative (Negative); Blood,Urine Negative (Negative); Color,Urine Yellow; Glucose,Urine (UA) Negative (Negative); Ketones,Urine Negative (Negative); Leukocyte Esterase,Urine Negative (Negative); Nitrite,Urine Negative (Negative); Protein,Urine Trace (Negative)
[2018-09-19 21:18] LABS: Specific Gravity,Urine >1.050 (1.001-1.035)
[2018-09-19 21:57] VITALS: BP 147/101; RESP 16
[2018-09-19 22:35] VITALS: TEMP 100.2
== END 2018-09-19 22:56 | disposition home or self-care (01) ==
LOC: EC 17:38
DX: R10.33 Periumbilical pain (principal); R11.2 Nausea with vomiting, unspecified; R19.7 Diarrhea, unspecified; J45.909 Unspecified asthma, uncomplicated; E11.9 Type 2 diabetes mellitus without complications; K21.9 Gastro-esophageal reflux disease without esophagitis; E78.5 Hyperlipidemia, unspecified; I10 Essential (primary) hypertension; G40.909 Epilepsy, unspecified, not intractable, without status epilepticus; F32.9 Major depressive disorder, single episode, unspecified; Z87.891 Personal history of nicotine dependence; Z79.891 Long term (current) use of opiate analgesic; Z79.84 Long term (current) use of oral hypoglycemic drugs; Z79.1 Long term (current) use of non-steroidal anti-inflammatories (NSAID); Z79.899 Other long term (current) drug therapy; Z88.1 Allergy status to other antibiotic agents; Z88.8 Allergy status to other drugs, medicaments and biological substances; Z95.818 Presence of other cardiac implants and grafts; Z90.49 Acquired absence of other specified parts of digestive tract; Z90.710 Acquired absence of both cervix and uterus; Z98.51 Tubal ligation status
CPT/HCPCS: 36415; 80053; 83605; 83690; 83735; 85025; 81003; 81025; 74177; 99284; 96374; 96375; 96376; 96361 ×2; J2270; J2765; Q9967

== ENCOUNTER 2018-09-20 18:33 | Inpatient (IN) | payer OTHER ==
[2018-09-20] MEDS ORDERED: SODIUM CHLORIDE 0.9% 1,000 ML IV STA (19:00)
[2018-09-20] MEDS ORDERED: HYDROmorphone 0.5 MG/0.5 ML SYRINGE IVP STA ×2 (19:00→22:17)
[2018-09-20] MEDS ORDERED: ONDANSETRON 4 MG/2 ML VIAL IVP STA (19:00)
[2018-09-20] MEDS ORDERED: FAMOTIDINE 20 MG/2 ML VIAL IV STA (19:11)
[2018-09-20] MEDS ORDERED: MAG HYDROX/AL HYDROX/SIMETH 30 ML, HYOSCYAMINE ELIXIR 10 ML, CIMETIDINE HCL 300 MG, LID... PO STA ×4 (19:11)
--- NOTE | 2018-09-20 19:12 | ED ---
General Adult HPI - General Chief complaint: Abdominal Pain Stated complaint: abdominal pain Time Seen by Provider: 09/20/18 18:44 Source: patient, RN notes reviewed Mode of arrival: ambulatory Limitations: no limitations - History of Present Illness Initial comments: 48-year-old female presents to the emergency department for a chief complaint of abdominal pain. Patient states the pain is in the upper abdomen. Patient states this has been ongoing for about 3 days. States she also some pain in her lower back. Patient has been vomiting multiple times per day and has had diarrhea multiple times per day as well. Patient has a history of cholecys tectomy and appendectomy. Patient also has a history of unknown infection in the stomach lining, possibly H pylori as she did take antibiotics for this. Patient states she is not able to keep down liquids and is concerned she may be dehydrated. Patient has no other complaints at this time including shortness of breath, chest pain, headache, or visual changes. - Related Data Home Medications Medication Instructions Recorded Confirmed Docusate Sodium [Dulcolax Stool 100 mg PO HS 03/03/14 09/20/18 Softener] Citalopram Hydrobromide [CeleXA] 20 mg PO QAM 04/03/14 09/20/18 Omeprazole [PriLOSEC] 20 mg PO BID 04/03/14 09/20/18 clonazePAM [Clonazepam] 2 mg PO HS 10/12/14 09/20/18 Albuterol Inhaler [Ventolin 2 puff INHALATION RT-QID PRN 11/23/14 09/20/18 Inhaler] Cyclobenzaprine [Flexeril] 10 mg PO TID 02/02/15 09/20/18 Azelastine HCl [Optivar 0.05% 1 drop BOTH EYES DAILY 06/12/16 09/20/18 Ophth Soln] Fenofibrate 160 mg PO HS 06/12/16 09/20/18 Ibuprofen [Motrin] 800 mg PO TID 06/12/16 09/20/18 OXcarbazepine [Oxtellar Xr] 900 mg PO HS 06/12/16 09/20/18 Oxybutynin Chloride [Ditropan] 5 mg PO BID 06/12/16 09/20/18 Prochlorperazine [Compazine] 10 mg PO TID 06/12/16 09/20/18 Verapamil HCl [Verapamil ER] 120 mg PO QAM 06/12/16 09/20/18 Cetirizine HCl 10 mg PO DAILY 05/01/17 09/20/18 Lidocaine 4% Cream [Lmx 4] 1 applic TOPICAL BID 03/05/18 09/20/18 Losartan [Cozaar] 50 mg PO QAM 03/05/18 09/20/18 Fluticasone Nasal [place] [Flonase 1 spray EA NOSTRIL DAILY 06/07/18 09/20/18 Nasal [place]] Gabapentin 600 mg PO TID 06/07/18 09/20/18 metFORMIN HCL [metFORMIN HCL ER] 500 mg PO BID 06/07/18 09/20/18 Albuterol Nebulized (Conc) 2.5 mg INHALATION RT-DAILY PRN 07/24/18 09/20/18 [Ventolin Nebulized (Conc)] Butalb/APAP/Caff 50-325-40Mg 1 tab PO Q8H PRN 09/19/18 09/20/18 [Fioricet 50-325-40] Famotidine [Pepcid] 40 mg PO DAILY 09/19/18 09/20/18 HYDROcodone/APAP 10-325MG [[place] 1 tab PO BID 09/19/18 09/20/18 10-325] Previous Rx's Medication Instructions Recorded Ondansetron [Zofran] 4 mg PO Q8HR PRN #15 tab 09/19/18 Allergies Allergy/AdvReac Type Severity Reaction Status Date / Time azithromycin Allergy Swelling Verified 09/20/18 18:44 [From Zithromax Z-Brayden] ondansetron HCl Allergy Unknown, Verified 09/20/18 18:44 [From Zofran (as ONLY IN A hydrochloride)] PILL FORM IS IT A PROBLEM Review of Systems ROS Statement: Those systems with pertinent positive or pertinent negative responses have been documented in the HPI. ROS Other: All systems not noted in ROS Statement are negative. Past Medical History Past Medical History: Asthma, Diabetes Mellitus, GERD/Reflux, Hyperlipidemia, Hypertension, Memory Impairment, Seizure Disorder Additional Past Medical History / Comment(s): Migraines. HX kidney stones. . LAST SEIZURE 11/23/17. BONE SPURS RT SIDE NECK. Hhx shattered tailbone. Episodes of 'black outs" -cause unknown, NARCOLEPSY. 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 History of Any Multi-Drug Resistant Organisms: None Reported Past Surgical History: Appendectomy, Bowel Resection, Cholecystectomy, Heart Catheterization, Hysterectomy, Tubal Ligation, Uterine Ablation Additional Past Surgical History / Comment(s): CYST REMOVED FROM RIGHT WRIST, pain clinic procedures. Past Anesthesia/Blood Transfusion Reactions: Motion Sickness Type of Cardiac Device: Loop Device Placement Date:: MAR 2009 AND 2013 Past Psychological History: Depression Smoking Status: Former smoker Past Alcohol Use History: None Reported Past Drug Use History: None Reported - Past Family History Mother Family Medical History: No Reported History Father Family Medical History: Cancer General Exam Limitations: no limitations General appearance: alert, in no apparent distress Head exam: Present: atraumatic, normocephalic, normal inspection Eye exam: Present: normal appearance, PERRL, EOMI. Absent: scleral icterus, conjunctival injection, periorbital swelling ENT exam: Present: normal exam, mucous membranes moist Neck exam: Present: normal inspection, full ROM. Absent: tenderness, meningismus, lymphadenopathy Respiratory exam: Present: normal lung sounds bilaterally. Absent: respiratory distress, wheezes, rales, rhonchi, stridor Cardiovascular Exam: Present: regular rate, normal rhythm, normal heart sounds. Absent: systolic murmur, diastolic murmur, rubs, gallop, clicks GI/Abdominal exam: Present: soft, tenderness (tendenress with voluntary gaurding to epigastric area.), guarding, normal bowel sounds. Absent: distended, jeanne ound, rigid Neurological exam: Present: alert, oriented X3, CN II-XII intact Psychiatric exam: Present: normal affect, normal mood Course Vital Signs 09/20/18 09/20/18 09/20/18 18:34 20:41 21:38 Temperature 98.1 F 100 F H Pulse Rate 124 H 122 H 125 H Respiratory 16 16 20 Rate Blood Pressure 98/61 128/80 O2 Sat by Pulse 100 100 99 Oximetry EKG Findings - EKG Comments: EKG Findings:: Sinus tachycardia, ventricular rate 115, [place] interval 100, QRS 72, QTc 464 Medical Decision Making - Medical Decision Making 48-year-old female presents to the emergency determine for chief clean of abdominal pain. Patient states this has been ongoing for 3 days. Patient also has had nausea vomiting and diarrhea. Patient states she is vomiting multiple times at home, unable to keep down liquids. Patient was seen here in the emergency department yesterday, had a negative CAT scan besides for a liver. On exam patient does have epigastric tenderness with mild voluntary guarding. No lower abdominal tenderness. History of cholecystectomy and appendectomy. CBC CMP unremarkable. However magnesium 1.5, patient given 1 g. Urine negative for infection. Acute abdominal series negative. Ultrasound of the right upper quadrant was ordered which was negative. Given that patient's pain is intractable and she has been tachycardic in the 120s, she will be admitted for IV hydration and further management. - Lab Data Result diagrams: 09/20/18 19:35 09/20/18 19:35 Lab Results 09/20/18 09/20/18 09/20/18 Range/Units 19:35 19:35 19:35 WBC 8.1 (3.8-10.6) k/uL RBC 4.74 (3.80-5.40) m/uL Hgb 14.5 (11.4-16.0) gm/dL Hct 43.4 (34.0-46.0) % MCV 91.6 (80.0-100.0) fL MCH 30.6 (25.0-35.0) pg MCHC 33.4 (31.0-37.0) g/dL RDW 13.7 (11.5-15.5) % Plt Count 245 (150-450) k/uL Neutrophils % 87 % Lymphocytes % 6 % Monocytes % 3 % Eosinophils % 2 % Basophils % 0 % Neutrophils # 7.1 (1.3-7.7) k/uL Lymphocytes # 0.5 L (1.0-4.8) k/uL Monocytes # 0.3 (0-1.0) k/uL Eosinophils # 0.2 (0-0.7) k/uL Basophils # 0.0 (0-0.2) k/uL Sodium 137 (137-145) mmol/L Potassium 3.5 (3.5-5.1) mmol/L Chloride 104 (98-107) mmol/L Carbon Dioxide 23 (22-30) mmol/L Anion Gap 10 mmol/L BUN 8 (7-17) mg/dL Creatinine 0.67 (0.52-1.04) mg/dL Est GFR (CKD-EPI)AfAm >90 (>60 ml/min/1.73 sqM) Est GFR (CKD-EPI)NonAf >90 (>60 ml/min/1.73 sqM) Glucose 84 (74-99) mg/dL Plasma Lactic Acid Hans 1.3 (0.7-2.0) mmol/L Calcium 8.7 (8.4-10.2) mg/dL Magnesium 1.5 L (1.6-2.3) mg/dL Total Bilirubin 0.4 (0.2-1.3) mg/dL AST 36 (14-36) U/L ALT 49 (9-52) U/L Alkaline Phosphatase 55 (38-126) U/L Troponin I (0.000-0.034) ng/mL Total Protein 7.2 (6.3-8.2) g/dL Albumin 4.1 (3.5-5.0) g/dL Amylase <30 L (30-110) U/L Lipase 45 (23-300) U/L Urine Color Urine Appearance (Clear) Urine pH (5.0-8.0) Ur Specific [place] (1.001-1.035) Urine Protein (Negative) Urine Glucose (UA) (Negative) Urine Ketones (Negative) Urine Blood (Negative) Urine Nitrite (Negative) Urine Bilirubin (Negative) Urine Urobilinogen (<2.0) mg/dL Ur Leukocyte Esterase (Negative) Urine HCG, Qual (Not Detectd) Influenza Type A RNA (Not Detectd) Influenza Type B (PCR) (Not Detectd) 09/20/18 09/20/18 09/20/18 Range/Units 19:35 21:03 21:03 WBC (3.8-10.6) k/uL RBC (3.80-5.40) m/uL Hgb (11.4-16.0) gm/dL Hct (34.0-46.0) % MCV (80.0-100.0) fL MCH (25.0-35.0) pg MCHC (31.0-37.0) g/dL RDW (11.5-15.5) % Plt Count (150-450) k/uL Neutrophils % % Lymphocytes % % Monocytes % % Eosinophils % % Basophils % % Neutrophils # (1.3-7.7) k/uL Lymphocytes # (1.0-4.8) k/uL Monocytes # (0-1.0) k/uL Eosinophils # (0-0.7) k/uL Basophils # (0-0.2) k/uL Sodium (137-145) mmol/L Potassium (3.5-5.1) mmol/L Chloride (98-107) mmol/L Carbon Dioxide (22-30) mmol/L Anion Gap mmol/L BUN (7-17) mg/dL Creatinine (0.52-1.04) mg/dL Est GFR (CKD-EPI)AfAm (>60 ml/min/1.73 sqM) Est GFR (CKD-EPI)NonAf (>60 ml/min/1.73 sqM) Glucose (74-99) mg/dL Plasma Lactic Acid Hans (0.7-2.0) mmol/L Calcium (8.4-10.2) mg/dL Magnesium (1.6-2.3) mg/dL Total Bilirubin (0.2-1.3) mg/dL AST (14-36) U/L ALT (9-52) U/L Alkaline Phosphatase (38-126) U/L Troponin I <0.012 (0.000-0.034) ng/mL Total Protein (6.3-8.2) g/dL Albumin (3.5-5.0) g/dL Amylase (30-110) U/L Lipase (23-300) U/L Urine Color Light Yellow Urine Appearance Clear (Clear) Urine pH 5.5 (5.0-8.0) Ur Specific [place] 1.013 (1.001-1.035) Urine Protein Negative (Negative) Urine Glucose (UA) Negative (Negative) Urine Ketones Negative (Negative) Urine Blood Negative (Negative) Urine Nitrite Negative (Negative) Urine Bilirubin Negative (Negative) Urine Urobilinogen <2.0 (<2.0) mg/dL Ur Leukocyte Esterase Negative (Negative) Urine HCG, Qual Not Detected (Not Detectd) Influenza Type A RNA (Not Detectd) Influenza Type B (PCR) (Not Detectd) 09/20/18 Range/Units 21:40 WBC (3.8-10.6) k/uL RBC (3.80-5.40) m/uL Hgb (11.4-16.0) gm/dL Hct (34.0-46.0) % MCV (80.0-100.0) fL MCH (25.0-35.0) pg MCHC (31.0-37.0) g/dL RDW (11.5-15.5) % Plt Count (150-450) k/uL Neutrophils % % Lymphocytes % % Monocytes % % Eosinophils % % Basophils % % Neutrophils # (1.3-7.7) k/uL Lymphocytes # (1.0-4.8) k/uL Monocytes # (0-1.0) k/uL Eosinophils # (0-0.7) k/uL Basophils # (0-0.2) k/uL Sodium (137-145) mmol/L Potassium (3.5-5.1) mmol/L Chloride (98-107) mmol/L Carbon Dioxide (22-30) mmol/L Anion Gap mmol/L BUN (7-17) mg/dL Creatinine (0.52-1.04) mg/dL Est GFR (CKD-EPI)AfAm (>60 ml/min/1.73 sqM) Est GFR (CKD-EPI)NonAf (>60 ml/min/1.73 sqM) Glucose (74-99) mg/dL Plasma Lactic Acid Hans (0.7-2.0) mmol/L Calcium (8.4-10.2) mg/dL Magnesium (1.6-2.3) mg/dL Total Bilirubin (0.2-1.3) mg/dL AST (14-36) U/L ALT (9-52) U/L Alkaline Phosphatase (38-126) U/L Troponin I (0.000-0.034) ng/mL Total Protein (6.3-8.2) g/dL Albumin (3.5-5.0) g/dL Amylase (30-110) U/L Lipase (23-300) U/L Urine Color Urine Appearance (Clear) Urine pH (5.0-8.0) Ur Specific [place] (1.001-1.035) Urine Protein (Negative) Urine Glucose (UA) (Negative) Urine Ketones (Negative) Urine Blood (Negative) Urine Nitrite (Negative) Urine Bilirubin (Negative) Urine Urobilinogen (<2.0) mg/dL Ur Leukocyte Esterase (Negative) Urine HCG, Qual (Not Detectd) Influenza Type A RNA Not Detected (Not Detectd) Influenza Type B (PCR) Not Detected (Not Detectd) Disposition Clinical Impression: Intractable abdominal pain, Hypomagnesemia, Tachycardia Disposition: ADMITTED IP TO THIS HOSP Condition: Fair Is patient prescribed a controlled substance at d/c from ED?: No Referrals: Connor King Jr, [Primary Care Provider] - 1-2 days Time of Disposition: 22:32
--- NOTE | 2018-09-20 19:40 | XR ---
EXAMINATION TYPE: XR abdomen acute w cxr DATE OF EXAM: 09/20/2018 COMPARISON: 03/05/2018 HISTORY: Abdominal pain TECHNIQUE: Chest x-ray with supine and upright abdomen FINDINGS: There is no heart failure nor confluent pneumonic infiltrate. Lungs are clear of consolidation. There is no pleural effusion. Heart size is normal. Bowel gas pattern is normal. There is no sign of intestinal obstruction or pneumoperitoneum. Fecal pa ttern is normal. There are no pathologic calcifications over the kidneys. There are clips from cholec ystectomy. IMPRESSION: Normal chest. Nonacute abdomen. Chest is stable compared to 03/05/2018.
[2018-09-20] MEDS: SODIUM CHLORIDE 0.9% 1,000 ML IV STA (19:44)
[2018-09-20 19:46] LABS: Basophils % (A) 0 %; Eosinophils # (A) 0.2 k/uL (0-0.7); Eosinophils % (A) 2 %; HCT 43.4 % (34.0-46.0); HGB 14.5 gm/dL (11.4-16.0); Lymphocytes # (A) 0.5 k/uL (1.0-4.8); Lymphocytes % (A) 6 %; MCH 30.6 pg (25.0-35.0); MCHC 33.4 g/dL (31.0-37.0); MCV 91.6 fL (80.0-100.0); Mean Platelet Volume 6.9; Monocytes # (A) 0.3 k/uL (0-1.0); Monocytes % (A) 3 %; Neutrophils # (A) 7.1 k/uL (1.3-7.7); Neutrophils % (A) 87 %; Platelet Count 245 k/uL (150-450); RBC 4.74 m/uL (3.80-5.40); RDW 13.7 % (11.5-15.5); WBC 8.1 k/uL (3.8-10.6)
[2018-09-20 19:55] LABS: ALT 49 U/L (9-52); AST 36 U/L (14-36); Albumin 4.1 g/dL (3.5-5.0); Alkaline Phosphatase 55 U/L (38-126); Amylase <30 U/L (30-110); Anion Gap 10 mmol/L; Blood Urea Nitrogen 8 mg/dL (7-17); Calcium 8.7 mg/dL (8.4-10.2); Carbon Dioxide 23 mmol/L (22-30); Chloride 104 mmol/L (98-107); Glucose 84 mg/dL (74-99); Lipase 45 U/L (23-300); Magnesium 1.5 mg/dL (1.6-2.3); Potassium 3.5 mmol/L (3.5-5.1); Sodium 137 mmol/L (137-145); Total Bilirubin 0.4 mg/dL (0.2-1.3); Total Protein 7.2 g/dL (6.3-8.2)
[2018-09-20] MEDS ORDERED: MAGNESIUM SULFATE-D5W PMX 1 GM in DEXTROSE/WATER 1 100ML.BAG IVPB ONE (20:15)
--- NOTE | 2018-09-20 20:57 | US ---
EXAMINATION TYPE: US abdomen limited DATE OF EXAM: 09/20/2018 COMPARISON: NONE CLINICAL HISTORY: Pain. EXAM MEASUREMENTS: Liver Length: 16.7 cm Gallbladder Wall: Surgically absent CBD: 0.6 cm Right Kidney: 10.6 x 3.9 x 4.8 cm Patient of large body habitus with large abdomen, extensive overlying bowel gas.Technically difficult and limited study. Pancreas: Tail obscured by overlying bowel gas Liver: Increased attenuation, decreased visualization of vessels suggestive of fatty infiltrate, monteiro ited views due to body habitus and attenuation Gallbladder: Surgically absent Evidence for sonographic White's sign: no CBD: wnl Right Kidney: wnl IMPRESSION: Cholecystectomy. No dilated ducts. No focal liver defect. Normal right kidney.
[2018-09-20 21:19] LABS: Appearance,Urine Clear (Clear); Bilirubin,Urine Negative (Negative); Blood,Urine Negative (Negative); Color,Urine Light Yellow; Glucose,Urine (UA) Negative (Negative); Ketones,Urine Negative (Negative); Leukocyte Esterase,Urine Negative (Negative); Nitrite,Urine Negative (Negative); PH, Urine 5.5 (5.0-8.0); Protein,Urine Negative (Negative); Specific Gravity,Urine 1.013 (1.001-1.035); Urobilinogen,Urine <2.0 mg/dL (<2.0)
[2018-09-20] MEDS ORDERED: ACETAMINOPHEN TAB 500 MG TAB PO STA (21:40)
[2018-09-20] MEDS ORDERED: NALOXONE 0.4 MG/ML 1 ML VIAL IV PRN (22:23)
[2018-09-20] MEDS ORDERED: ONDANSETRON 4 MG/2 ML VIAL IVP PRN (22:23)
[2018-09-20 23:57] LABS: Glucose,Whole Blood 95 mg/dL (75-99)
[2018-09-21] MEDS: SODIUM CHLORIDE 0.9% 1,000 ML IV SCH ×3 (00:28→21:58)
[2018-09-21 00:46] VITALS: BMI 35.3
[2018-09-21] MEDS ORDERED: ALBUTEROL NEBULIZED 2.5 MG/3 ML INHALATION PRN ×2 (01:04)
[2018-09-21] MEDS ORDERED: HYDROcodone/APAP 10-325MG 1 EACH TAB PO PRN (01:04)
[2018-09-21] MEDS ORDERED: BUTALB/APAP/CAFF 50-325-40MG TAB PO PRN (01:04)
[2018-09-21] MEDS: HYDROmorphone 1 MG/ML 1 ML SYRINGE IVP PRN ×5 (04:33→21:55)
[2018-09-21 06:54] LABS: Glucose,Whole Blood 77 mg/dL (75-99)
[2018-09-21] MEDS: CITALOPRAM HYDROBROMIDE 10 MG TAB PO SCH (08:32)
[2018-09-21] MEDS: GABAPENTIN 300 MG CAP PO SCH ×3 (08:32→21:54)
[2018-09-21] MEDS: PROCHLORPERAZINE 10 MG TAB PO SCH ×3 (08:32→21:54)
[2018-09-21] MEDS: PANTOPRAZOLE 40 MG TABLET PO SCH (08:32)
[2018-09-21] MEDS: FAMOTIDINE 20 MG TAB PO SCH (08:32)
[2018-09-21] MEDS: LOSARTAN 50 MG TAB PO SCH (08:32)
[2018-09-21] MEDS: CYCLOBENZAPRINE 10 MG TAB PO SCH ×3 (08:32→21:54)
[2018-09-21] MEDS: OXYBUTYNIN CHLORIDE 5 MG TAB PO SCH ×2 (08:32→21:54)
[2018-09-21] MEDS: VERAPAMIL SR 120 MG TABLET.ER PO SCH (08:32)
[2018-09-21] MEDS: FLUTICASONE 50MCG/SPRAY NASAL 16GM EA NOSTRIL SCH (08:32)
[2018-09-21] MEDS: INSULIN ASPART (NovoLOG) 100 UNIT/ML VIAL SQ SCH ×4 (08:34→21:26)
[2018-09-21 11:20] LABS: Glucose,Whole Blood 72 mg/dL (75-99)
--- NOTE | 2018-09-21 16:22 | P.HPIM ---
History of Present Illness H&P Date: 09/21/18 Chief Complaint: Nausea, vomiting, abdominal pain This is a pleasant 48-year-old Bengali female in obvious distress from epigastric abdominal pain. She indicates a 40 history of ongoing abdominal pain, nausea, emesis, watery diarrhea, and feelings of malaise. She's been in the emergency room several times now. CT abdomen and pelvis and now on ultrasound of pelvis he'll show any significant findings. Laboratory studies appear normal. Influenza swab was normal. She takes chronic pain medications for chronic low back pain. She has history of migraine headache and depression. Hypertension and diabetes. Currently she is on IV fluids and uncomfortable due to pain. She denies any chest pains, pressures or shortness of breath with this episode. She does not have any coughing. Review of Systems All systems: negative Past Medical History Past Medical History: Asthma, Diabetes Mellitus, GERD/Reflux, Hyperlipidemia, Hypertension, Memory Impairment, Seizure Disorder Additional Past Medical History / Comment(s): Migraines. HX kidney stones. . LAST SEIZURE 11/23/17. BONE SPURS RT SIDE NECK. Hhx shattered tailbone. Episodes of 'black outs" -cause unknown, NARCOLEPSY. 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 History of Any Multi-Drug Resistant Organisms: None Reported Past Surgical History: Appendectomy, Bowel Resection, Cholecystectomy, Heart Catheterization, Hysterectomy, Tubal Ligation, Uterine Ablation Additional Past Surgical History / Comment(s): CYST REMOVED FROM RIGHT WRIST, pain clinic procedures. Past Anesthesia/Blood Transfusion Reactions: No Reported Reaction Type of Cardiac Device: Loop Device Placement Date:: MAR 2009 AND 2013 Past Psychological History: Depression Smoking Status: Former smoker Past Alcohol Use History: None Reported Additional Past Alcohol Use History / Comment(s): SMOKED 4 YEARS LIGHTLY, QUIT IN 2006. Past Drug Use History: None Reported - Past Family History Mother Family Medical History: No Reported History Father Family Medical History: Cancer Medications and Allergies Home Medications Medication Instructions Recorded Confirmed Type Docusate Sodium [Dulcolax Stool 100 mg PO HS 03/03/14 09/20/18 History Softener] Citalopram Hydrobromide [CeleXA] 20 mg PO QAM 04/03/14 09/20/18 History Omeprazole [PriLOSEC] 20 mg PO BID 04/03/14 09/20/18 History clonazePAM [Clonazepam] 2 mg PO HS 10/12/14 09/20/18 History Albuterol Inhaler [Ventolin 2 puff INHALATION RT-QID PRN 11/23/14 09/20/18 History Inhaler] Cyclobenzaprine [Flexeril] 10 mg PO TID 02/02/15 09/20/18 History Azelastine HCl [Optivar 0.05% 1 drop BOTH EYES DAILY 06/12/16 09/20/18 History Ophth Soln] Fenofibrate 160 mg PO HS 06/12/16 09/20/18 History Ibuprofen [Motrin] 800 mg PO TID 06/12/16 09/20/18 History OXcarbazepine [Oxtellar Xr] 900 mg PO HS 06/12/16 09/20/18 History Oxybutynin Chloride [Ditropan] 5 mg PO BID 06/12/16 09/20/18 History Prochlorperazine [Compazine] 10 mg PO TID 06/12/16 09/20/18 History Verapamil HCl [Verapamil ER] 120 mg PO QAM 06/12/16 09/20/18 History Cetirizine HCl 10 mg PO DAILY 05/01/17 09/20/18 History Lidocaine 4% Cream [Lmx 4] 1 applic TOPICAL BID 03/05/18 09/20/18 History Losartan [Cozaar] 50 mg PO QAM 03/05/18 09/20/18 History Fluticasone Nasal [place] [Flonase 1 spray EA NOSTRIL DAILY 06/07/18 09/20/18 History Nasal [place]] Gabapentin 600 mg PO TID 06/07/18 09/20/18 History metFORMIN HCL [metFORMIN HCL ER] 500 mg PO BID 06/07/18 09/20/18 History Albuterol Nebulized (Conc) 2.5 mg INHALATION RT-DAILY PRN 07/24/18 09/20/18 History [Ventolin Nebulized (Conc)] Butalb/APAP/Caff 50-325-40Mg 1 tab PO Q8H PRN 09/19/18 09/20/18 History [Fioricet 50-325-40] Famotidine [Pepcid] 40 mg PO DAILY 09/19/18 09/20/18 History HYDROcodone/APAP 10-325MG [[place] 1 tab PO BID 09/19/18 09/20/18 History 10-325] Ondansetron [Zofran] 4 mg PO Q8HR PRN #15 tab 09/19/18 09/20/18 Rx Allergies Allergy/AdvReac Type Severity Reaction Status Date / Time azithromycin Allergy Swelling Verified 09/20/18 18:44 [From Zithromax Z-Brayden] ondansetron HCl Allergy Unknown, Verified 09/20/18 18:44 [From Zofran (as ONLY IN A hydrochloride)] PILL FORM IS IT A PROBLEM Physical Exam Vitals: Vital Signs Temp Pulse Pulse Resp BP BP Pulse Ox 09/21/18 12:43 98.0 F 96 16 110/66 96 09/21/18 05:33 98.1 F 102 H 18 112/74 96 09/21/18 00:44 97.6 F 107 H 18 110/76 98 09/21/18 00:00 98 F 115 H 18 138/90 96 09/20/18 21:38 100 F H 125 H 20 99 09/20/18 20:41 122 H 16 128/80 100 09/20/18 18:34 98.1 F 124 H 16 98/61 100 Intake and Output 09/21/18 09/21/18 09/21/18 06:59 14:59 22:59 Other: Voiding Method Toilet # Voids 2 2 GENERAL: Uncomfortable female in [id number] pain. She indicates her midepigastrium as location. HEAD: Atraumatic, normocephalic. EYES: Pupils equal round and reactive to light, extraocular movements intact, sclera anicteric, conjunctiva are normal. ENT:nares patent, oropharynx clear without exudates. Moist mucous membranes. NECK: Normal range of motion, supple without lymphadenopathy or JVD, no thyromegaly LUNGS: Breath sounds slightly coarse to auscultation bilaterally and equal. No wheezes rales or rhonchi. HEART: Regular rate and rhythm without murmurs, rubs or gallops.S1S2 Normal ABDOMEN: Soft, normoactive bowel sounds. No guarding, no rebound. No masses appreciated. There is moderate tenderness to palpation in midepigastrium. EXTREMITIES: Normal range of motion, no pitting or edema. No clubbing or cyanosis. NEUROLOGICAL: Cranial nerves II through XII grossly intact. Normal speech, normal gait. PSYCH: Normal mood, normal affect. SKIN: Warm, Dry, normal turgor, no rashes or lesions noted. Results CBC & Chem 7: 09/20/18 19:35 09/20/18 19:35 Labs: Abnormal Lab Results - Last 24 Hours (Table) 09/20/18 09/20/18 09/21/18 Range/Units 19:35 19:35 11:19 Lymphocytes # 0.5 L (1.0-4.8) k/uL POC Glucose (mg/dL) 72 L (75-99) mg/dL Magnesium 1.5 L (1.6-2.3) mg/dL Amylase <30 L (30-110) U/L Abdominal x-ray: report reviewed CT scan - abdomen: report reviewed US - abdomen: report reviewed Thrombosis Risk Factor Assmnt - DVT/VTE Prophylaxis DVT/VTE Prophylaxis: Mechanical Prophylaxis ordered, Low risk, early ambulation encouraged - Choose All That Apply Any of the Below Risk Factors Present?: Yes Each Factor Represents 1 point: Age 41-60 years, Obesity (BMI >25) Thrombosis Risk Factor Assessment Total Risk Factor Score: 2 Thrombosis Risk Factor Assessment Level: Low Risk Assessment and Plan (1) Diabetes Current Visit: Yes Status: Acute Code(s): E11.9 - TYPE 2 DIABETES MELLITUS WITHOUT COMPLICATIONS SNOMED Code(s): 25291044 (2) Moderate major depression Current Visit: Yes Status: Acute Code(s): F32.1 - MAJOR DEPRESSIVE DISORDER, SINGLE EPISODE, MODERATE SNOMED Code(s): 096227 (3) Essential (primary) hypertension Current Visit: Yes Status: Acute Code(s): I10 - ESSENTIAL (PRIMARY) H YPERTENSION SNOMED Code(s): 69756957 (4) Intractable abdominal pain Current Visit: Yes Status: Acute Code(s): R10.9 - UNSPECIFIED ABDOMINAL PAIN SNOMED Code(s): 49767842 (5) Lumbar and sacral spondyloarthritis Current Visit: No Status: Chronic Code(s): M48.9 - SPONDYLOPATHY, UNSPECIFIED SNOMED Code(s): 557846789 (6) Lumbar radiculopathy, chronic Current Visit: No Status: Chronic Code(s): M54.16 - RADICULOPATHY, LUMBAR REGION SNOMED Code(s): 543500507 (7) Hypomagnesemia Current Visit: Yes Status: Acute Code(s): E83.42 - HYPOMAGNESEMIA SNOMED Code(s): 590824048 Plan: I will consult general surgery, as she's had an EGD with them before, and her abdominal pain is inconsistent with current findings. Seems quite severe, may be viral in origin, but no left shift on white count. We'll repeat labs in a.m. Continue IV fluids and clear liquid diet. We'll order a GI cocktail, pharmacy to dose. Continue current pain medications He'll be reevaluated in the next 24 hours.
[2018-09-21 16:53] LABS: Glucose,Whole Blood 65 mg/dL (75-99)
[2018-09-21] MEDS ORDERED: MAG HYDROX/AL HYDROX/SIMETH 30 ML CUP PO SCH (18:00)
[2018-09-21 20:22] LABS: Glucose,Whole Blood 76 mg/dL (75-99)
[2018-09-21] MEDS: FENOFIBRATE 160 MG TAB PO SCH (21:54)
[2018-09-21] MEDS: DOCUSATE 100 MG CAP PO SCH (21:54)
[2018-09-21] MEDS: Oxcarbazepine [Oxtellar Xr] 300 MG PO SCH (21:54)
[2018-09-21 23:36] LABS: Hemoglobin A1C 5.8 % (4.0-6.0)
[2018-09-22] MEDS: SODIUM CHLORIDE 0.9% 1,000 ML IV SCH ×3 (05:59→23:52)
[2018-09-22 07:08] LABS: Glucose,Whole Blood 73 mg/dL (75-99)
[2018-09-22] MEDS: INSULIN ASPART (NovoLOG) 100 UNIT/ML VIAL SQ SCH ×4 (07:25→21:40)
[2018-09-22] MEDS: GABAPENTIN 300 MG CAP PO SCH ×3 (08:35→21:39)
[2018-09-22] MEDS: VERAPAMIL SR 120 MG TABLET.ER PO SCH (08:35)
[2018-09-22] MEDS: CITALOPRAM HYDROBROMIDE 10 MG TAB PO SCH (08:35)
[2018-09-22] MEDS: OXYBUTYNIN CHLORIDE 5 MG TAB PO SCH ×2 (08:35→21:39)
[2018-09-22] MEDS: PROCHLORPERAZINE 10 MG TAB PO SCH ×3 (08:35→21:40)
[2018-09-22] MEDS: PANTOPRAZOLE 40 MG TABLET PO SCH (08:35)
[2018-09-22] MEDS: CYCLOBENZAPRINE 10 MG TAB PO SCH ×3 (08:35→21:39)
[2018-09-22] MEDS: FAMOTIDINE 20 MG TAB PO SCH (08:35)
[2018-09-22] MEDS: LOSARTAN 50 MG TAB PO SCH (08:35)
[2018-09-22] MEDS: FLUTICASONE 50MCG/SPRAY NASAL 16GM EA NOSTRIL SCH (08:36)
--- NOTE | 2018-09-22 11:06 | P.GSCN ---
History of Present Illness Consult date: 09/22/18 Reason for Consult: Abdominal pain, nausea, diarrhea History of present illness: This a 40-year-old female well-known to myself. Patient has had complaints of nausea, vomiting and diarrhea. Patient states that she's had approximate 48 hours the symptoms. Patient was admitted through the emergency room last night. She still has complaints of epigastric pain and nausea this morning. Past Medical History Past Medical History: Asthma, Diabetes Mellitus, GERD/Reflux, Hyperlipidemia, Hypertension, Memory Impairment, Seizure Disorder Additional Past Medical History / Comment(s): Migraines. HX kidney stones. . LAST SEIZURE 11/23/17. BONE SPURS RT SIDE NECK. Hhx shattered tailbone. Episodes of 'black outs" -cause unknown, NARCOLEPSY. 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 History of Any Multi-Drug Resistant Organisms: None Reported Past Surgical History: Appendectomy, Bowel Resection, Cholecystectomy, Heart Catheterization, Hysterectomy, Tubal Ligation, Uterine Ablation Additional Past Surgical History / Comment(s): CYST REMOVED FROM RIGHT WRIST, pain clinic procedures. Past Anesthesia/Blood Transfusion Reactions: No Reported Reaction Type of Cardiac Device: Loop Device Placement Date:: MAR 2009 AND 2013 Past Psychological History: Depression Smoking Status: Former smoker Past Alcohol Use History: None Reported Additional Past Alcohol Use History / Comment(s): SMOKED 4 YEARS LIGHTLY, QUIT IN 2006. Past Drug Use History: None Reported - Past Family History Mother Family Medical History: No Reported History Father Family Medical History: Cancer Medications and Allergies Home Medications Medication Instructions Recorded Confirmed Type Docusate Sodium [Dulcolax Stool 100 mg PO HS 03/03/14 09/20/18 History Softener] Citalopram Hydrobromide [CeleXA] 20 mg PO QAM 04/03/14 09/20/18 History Omeprazole [PriLOSEC] 20 mg PO BID 04/03/14 09/20/18 History clonazePAM [Clonazepam] 2 mg PO HS 10/12/14 09/20/18 History Albuterol Inhaler [Ventolin 2 puff INHALATION RT-QID PRN 11/23/14 09/20/18 History Inhaler] Cyclobenzaprine [Flexeril] 10 mg PO TID 02/02/15 09/20/18 History Azelastine HCl [Optivar 0.05% 1 drop BOTH EYES DAILY 06/12/16 09/20/18 History Ophth Soln] Fenofibrate 160 mg PO HS 06/12/16 09/20/18 History Ibuprofen [Motrin] 800 mg PO TID 06/12/16 09/20/18 History OXcarbazepine [Oxtellar Xr] 900 mg PO HS 06/12/16 09/20/18 History Oxybutynin Chloride [Ditropan] 5 mg PO BID 06/12/16 09/20/18 History Prochlorperazine [Compazine] 10 mg PO TID 06/12/16 09/20/18 History Verapamil HCl [Verapamil ER] 120 mg PO QAM 06/12/16 09/20/18 History Cetirizine HCl 10 mg PO DAILY 05/01/17 09/20/18 History Lidocaine 4% Cream [Lmx 4] 1 applic TOPICAL BID 03/05/18 09/20/18 History Losartan [Cozaar] 50 mg PO QAM 03/05/18 09/20/18 History Fluticasone Nasal [place] [Flonase 1 spray EA NOSTRIL DAILY 06/07/18 09/20/18 History Nasal [place]] Gabapentin 600 mg PO TID 06/07/18 09/20/18 History metFORMIN HCL [metFORMIN HCL ER] 500 mg PO BID 06/07/18 09/20/18 History Albuterol Nebulized (Conc) 2.5 mg INHALATION RT-DAILY PRN 07/24/18 09/20/18 History [Ventolin Nebulized (Conc)] Butalb/APAP/Caff 50-325-40Mg 1 tab PO Q8H PRN 09/19/18 09/20/18 History [Fioricet 50-325-40] Famotidine [Pepcid] 40 mg PO DAILY 09/19/18 09/20/18 History HYDROcodone/APAP 10-325MG [[place] 1 tab PO BID 09/19/18 09/20/18 History 10-325] Ondansetron [Zofran] 4 mg PO Q8HR PRN #15 tab 09/19/18 09/20/18 Rx Allergies Allergy/AdvReac Type Severity Reaction Status Date / Time azithromycin Allergy Swelling Verified 09/20/18 18:44 [From Zithromax Z-Brayden] ondansetron HCl Allergy Unknown, Verified 09/20/18 18:44 [From Zofran (as ONLY IN A hydrochloride)] PILL FORM IS IT A PROBLEM Surgical - Exam Vital Signs Temp Pulse Resp BP Pulse Ox 98.1 F 124 H 16 98/61 100 09/20/18 18:34 09/20/18 18:34 09/20/18 18:34 09/20/18 18:34 09/20/18 18:34 - General well developed, well nourished, no distress - Eyes PERRL - ENT normal pinna - Neck no masses - Respiratory normal expansion - Cardiovascular Rhythm: regular - Abdomen I'll epigastric tenderness Abdomen: soft Results - Labs 09/20/18 19:35 09/20/18 19:35 Abnormal Lab Results - Last 24 Hours (Table) 09/21/18 09/21/18 09/22/18 Range/Units 11:19 16:52 07:07 POC Glucose (mg/dL) 72 L 65 L 73 L (75-99) mg/dL Microbiology - Last 24 Hours (Table) 09/20/18 19:35 Blood Culture - Preliminary Blood No Growth after 24 hours Diabetes panel 09/20/18 Range/Units 19:35 Hemoglobin A1c 5.8 (4.0-6.0) % Thyroid panel 09/20/18 Range/Units 19:35 TSH 0.695 (0.465-4.680) mIU/L Pituitary panel 09/20/18 Range/Units 19:35 TSH 0.695 (0.465-4.680) mIU/L Assessment and Plan Assessment: Epigastric pain nausea and diarrhea. Patient may have a gastritis. Patient appears history of H. pylori infection. Patient will undergo computed tomography scan of the abdomen pelvis today.
[2018-09-22 11:37] LABS: Glucose,Whole Blood 79 mg/dL (75-99)
--- NOTE | 2018-09-22 11:51 | P.PN ---
Subjective This is a pleasant 48-year-old Yor[place] female in obvious distress from epigastric abdominal pain. She indicates a 40 history of ongoing abdominal pa in, nausea, emesis, watery diarrhea, and feelings of malaise. She's been in the emergency room several times now. CT abdomen and pelvis and now on ultrasound of pelvis he'll show any significant findings. Laboratory studies appear normal. Influenza swab was normal. She takes chronic pain medications for chronic low back pain. She has history of migraine headache and depression. Hypertension and diabetes. Currently she is on IV fluids and uncomfortable due to pain. She denies any chest pains, pressures or shortness of breath with this episode. She does not have any coughing. 09/22/2018: Patient remains on IV pain medications of Dilaudid. reports she is taking some liquids for popsicles or really anything much at all. She continues to complain of significant pain. She indicates a GI cocktail didn't improve her symptoms a little bit yesterday. She indicates her diarrhea is slightly less. Surgery has seen her and their recommendations are pending. She remains afebrile. Pulse rate is improved. Blood pressure remained controlled. She continues on IV fluids of normal saline at 100 mL an hour Objective - Vital Signs Vital signs: Vital Signs Temp 97.4 F L 09/22/18 05:43 Pulse 89 09/22/18 05:43 Resp 18 09/22/18 05:43 BP 104/71 09/22/18 05:43 Pulse Ox 96 09/22/18 05:43 Intake & Output 09/21/18 09/22/18 09/22/18 18:59 06:59 18:59 Intake Total 1150 Balance 1150 Intake: Intake, IV Titration 1150 Amount Sodium Chloride 0.9% 1, 1150 000 ml @ 100 mls/hr IV . Q10H VINCENZO Rx#:[id number] Other: Voiding Method Toilet # Voids 2 1 - Exam GENERAL: Uncomfortable female is grimacing, but appears asleep. She is easily arousable. NECK: Normal range of motion, supple without lymphadenopathy or JVD, no thyromegaly LUNGS: Breath sounds slightly coarse to auscultation bilaterally and equal. No wheezes rales or rhonchi. HEART: Regular rate and rhythm without murmurs, rubs or gallops.S1S2 Normal ABDOMEN: Soft, normoactive bowel sounds. No guarding, no rebound. No masses appreciated. There is moderate tenderness to palpation in midepigastrium. EXTREMITIES: Normal range of motion, no pitting or edema. No clubbing or cyanosis. NEUROLOGICAL: Cranial nerves II through XII grossly intact. Normal speech, normal gait. PSYCH: Normal mood, normal affect. SKIN: Warm, Dry, normal turgor, no rashes or lesions noted. - Labs CBC & Chem 7: 09/20/18 19:35 09/20/18 19:35 Labs: Abnormal Lab Results - Last 24 Hours (Table) 09/21/18 09/22/18 Range/Units 16:52 07:07 POC Glucose (mg/dL) 65 L 73 L (75-99) mg/dL Microbiology - Last 24 Hours (Table) 09/20/18 19:35 Blood Culture - Preliminary Blood No Growth after 24 hours Assessment and Plan (1) Intractable abdominal pain Current Visit: Yes Status: Acute Code(s): R10.9 - UNSPECIFIED ABDOMINAL PAIN SNOMED Code(s): 75650780 (2) Diabetes Current Visit: Yes Status: Acute Code(s): E11.9 - TYPE 2 DIABETES MELLITUS WITHOUT COMPLICATIONS SNOMED Code(s): 77900750 (3) Moderate major depression Current Visit: Yes Status: Acute Code(s): F32.1 - MAJOR DEPRESSIVE DISORDER, SINGLE EPISODE, MODERATE SNOMED Code(s): 028062 (4) Essential (primary) hypertension Current Visit: Yes Status: Acute Code(s): I10 - ESSENTIAL (PRIMARY) HYPERTENSION SNOMED Code(s): 95900459 (5) Lumbar and sacral spondyloarthritis Current Visit: No Status: Chronic Code(s): M48.9 - SPONDYLOPATHY, UNSPECIFIED SNOMED Code(s): 695818303 (6) Lumbar radiculopathy, chronic Current Visit: No Status: Chronic Code(s): M54.16 - RADICULOPATHY, LUMBAR REGION SNOMED Code(s): 567745972 (7) Hypomagnesemia Current Visit: Yes Status: Acute Code(s): E83.42 - HYPOMAGNESEMIA SNOMED Code(s): 552173750 Plan: I will wait on surgical consult. I will hold her verapamil and check a verapamil level. We'll repeat labs in a.m. Continue IV fluids and clear liquid diet. I will re-order a GI cocktail, pharmacy to dose. I will adjust her pain medications. sHe'll be reevaluated in the next 24 hours.
[2018-09-22 11:59] LABS: ALT 167 U/L (9-52); AST 78 U/L (14-36); Albumin 3.4 g/dL (3.5-5.0); Alkaline Phosphatase 52 U/L (38-126); Amylase 35 U/L (30-110); Anion Gap 4 mmol/L; Blood Urea Nitrogen 3 mg/dL (7-17); Calcium 8.6 mg/dL (8.4-10.2); Carbon Dioxide 28 mmol/L (22-30); Chloride 107 mmol/L (98-107); Glucose 86 mg/dL (74-99); Lipase 87 U/L (23-300); Magnesium 1.8 mg/dL (1.6-2.3); Potassium 3.6 mmol/L (3.5-5.1); Sodium 139 mmol/L (137-145); Total Bilirubin 0.3 mg/dL (0.2-1.3); Total Protein 6.2 g/dL (6.3-8.2)
[2018-09-22] MEDS: IOPAMIDOL-300 CONTRAST 30 ML VIAL (ORAL USE) PO PRN ×2 (12:07→13:01)
[2018-09-22 12:13] LABS: HCT 36.9 % (34.0-46.0); MCH 31.9 pg (25.0-35.0); MCHC 35.2 g/dL (31.0-37.0); MCV 90.8 fL (80.0-100.0); Mean Platelet Volume 6.7; Platelet Count 225 k/uL (150-450); RBC 4.06 m/uL (3.80-5.40); RDW 13.2 % (11.5-15.5); WBC 3.9 k/uL (3.8-10.6)
[2018-09-22] MEDS: KETOROLAC 30 MG/ML 1 ML VIAL IVP PRN ×2 (12:26→21:41)
[2018-09-22 13:41] LABS: Band Neutrophils % 1 %; Eosinophils # (M) 0.23 k/uL (0-0.7); Lymphocytes # (M) 1.64 k/uL (1.0-4.8); Monocytes # (M) 0.51 k/uL (0-1.0); Neutrophils % (M) 38 %; Nucleated Red Blood Cells 0 /100 WBC (0-0); Total Cells Counted 100
--- NOTE | 2018-09-22 14:24 | CT ---
EXAMINATION TYPE: CT abdomen pelvis w con DATE OF EXAM: 09/22/2018 COMPARISON: 09/19/2018 HISTORY: Abdominal pain CT DLP: 1423.30 mGycm Automated exposure control for dose reduction was used. TECHNIQUE: Helical acquisition of images was performed from the lung bases through the pelvis. CONTRAST: Performed with Oral Contrast and with IV Contrast, patient injected with 100 ml mL of Isovue 300. FINDINGS: There is subsegmental atelectasis at the lung bases. Heart size is normal. There is no pericardial ef fusion. Liver spleen pancreas appear normal. There are clips from cholecystectomy. Bile ducts are not dilated. Stomach appears normal. There is no adrenal mass. Kidneys show satisfactory contrast opacification. There is no hydronephrosi s. Ureters are not dilated. Bladder distends smoothly. There is no inguinal hernia. There is small amount of fluid in the pelvis. There is no mesenteric edema. There is no ascites. There is no sign of free air. There is no intesti nal wall thickening. There are multiple cysts on both ovaries. I see no bony destructive process. [place] brandt is anteverted. Lumbar spine is intact. Appendix is not seen. There is no sign of appendicitis. IMPRESSION: NEGATIVE CT SCAN OF THE ABDOMEN AND PELVIS. NO ADVERSE CHANGE COMPARED TO LAST EXAM.
[2018-09-22 17:17] LABS: Glucose,Whole Blood 76 mg/dL (75-99)
[2018-09-22 20:25] LABS: Glucose,Whole Blood 137 mg/dL (75-99)
[2018-09-22] MEDS: DOCUSATE 100 MG CAP PO SCH (21:40)
[2018-09-22] MEDS: Oxcarbazepine [Oxtellar Xr] 300 MG PO SCH (21:40)
[2018-09-22] MEDS: FENOFIBRATE 160 MG TAB PO SCH (21:41)
[2018-09-22 22:13] VITALS: RESP 16
[2018-09-23 05:18] VITALS: BP 113/75; PULSE 81; TEMP 97.7
[2018-09-23 07:15] LABS: Glucose,Whole Blood 77 mg/dL (75-99)
[2018-09-23] MEDS: INSULIN ASPART (NovoLOG) 100 UNIT/ML VIAL SQ SCH ×2 (07:31→11:49)
[2018-09-23 07:46] LABS: Anion Gap 8 mmol/L; Blood Urea Nitrogen 4 mg/dL (7-17); Calcium 8.3 mg/dL (8.4-10.2); Carbon Dioxide 24 mmol/L (22-30); Chloride 107 mmol/L (98-107); Glucose 72 mg/dL (74-99); Sodium 139 mmol/L (137-145)
[2018-09-23 07:58] LABS: Potassium 3.8 mmol/L (3.5-5.1)
[2018-09-23] MEDS: OXYBUTYNIN CHLORIDE 5 MG TAB PO SCH (09:07)
[2018-09-23] MEDS: GABAPENTIN 300 MG CAP PO SCH (09:08)
[2018-09-23] MEDS: PANTOPRAZOLE 40 MG TABLET PO SCH (09:08)
[2018-09-23] MEDS: FLUTICASONE 50MCG/SPRAY NASAL 16GM EA NOSTRIL SCH (09:08)
[2018-09-23] MEDS: CITALOPRAM HYDROBROMIDE 10 MG TAB PO SCH (09:08)
[2018-09-23] MEDS: CYCLOBENZAPRINE 10 MG TAB PO SCH (09:08)
[2018-09-23] MEDS: PROCHLORPERAZINE 10 MG TAB PO SCH (09:08)
[2018-09-23] MEDS: LOSARTAN 50 MG TAB PO SCH (09:08)
[2018-09-23] MEDS: FAMOTIDINE 20 MG TAB PO SCH (09:09)
[2018-09-23] MEDS: SODIUM CHLORIDE 0.9% 1,000 ML IV SCH (09:09)
[2018-09-23] MEDS: HYDROmorphone 1 MG/ML 1 ML SYRINGE IVP PRN (09:15)
--- NOTE | 2018-09-23 09:38 | P.PN ---
Subjective This is a pleasant 48-year-old Italian female in obvious distress from epigastric abdominal pain. She indicates a 40 history of ongoing abdominal pa in, nausea, emesis, watery diarrhea, and feelings of malaise. She's been in the emergency room several times now. CT abdomen and pelvis and now on ultrasound of pelvis he'll show any significant findings. Laboratory studies appear normal. Influenza swab was normal. She takes chronic pain medications for chronic low back pain. She has history of migraine headache and depression. Hypertension and diabetes. Currently she is on IV fluids and uncomfortable due to pain. She denies any chest pains, pressures or shortness of breath with this episode. She does not have any coughing. 09/22/2018: Patient remains on IV pain medications of Dilaudid. reports she is taking some liquids for popsicles or really anything much at all. She continues to complain of significant pain. She indicates a GI cocktail didn't improve her symptoms a little bit yesterday. She indicates her diarrhea is slightly less. Surgery has seen her and their recommendations are pending. She remains afebrile. Pulse rate is improved. Blood pressure remained controlled. She continues on IV fluids of normal saline at 100 mL an hour 09/23/2018: Patient appears better today. She is no longer reading obtained. She indicates she has not had any diarrhea in 24 hours. Has not really eaten much. She does continue to feel nauseated and didn't have emesis when she does a narrowing. She denies any chest pains, pressures, shortness breath. She remains afebrile. Heart rate is normal. She continues on Dilaudid for pain medication. On her was on hold. She is scheduled for a epidural procedure of h er lower back, which will be rescheduled due to her hospitalization. General surgery seen her yesterday. She has a history of H. pylori. They're planning on repeating EGD today. CT abdomen and pelvis was negative. Objective - Vital Signs Vital signs: Vital Signs Temp 97.7 F 09/23/18 05:16 Pulse 81 09/23/18 05:16 Resp 16 09/23/18 05:16 BP 113/75 09/23/18 05:16 Pulse Ox 98 09/23/18 05:16 Intake & Output 09/22/18 09/23/18 09/23/18 18:59 06:59 18:59 Intake Total 1400 1150 Balance 1400 1150 Intake: Intake, IV Titration 800 1150 Amount Sodium Chloride 0.9% 1, 800 1150 000 ml @ 100 mls/hr IV . Q10H VINCENZO Rx#:[id number] Oral 600 Other: Voiding Method Toilet Toilet # Voids 4 1 - Exam GENERAL: Awake and in minimal distress at this time. NECK: Normal range of motion, supple without lymphadenopathy or JVD, no thyromegaly LUNGS: Breath sounds slightly coarse to auscultation bilaterally and equal. No wheezes rales or rhonchi. HEART: Regular rate and rhythm without murmurs, rubs or gallops.S1S2 Normal ABDOMEN: Soft, normoactive bowel sounds. No guarding, no rebound. No masses appreciated. There is now mild tenderness to palpation in midepigastrium. EXTREMITIES: Normal range of motion, no pitting or edema. No clubbing or cyanosis. NEUROLOGICAL: Cranial nerves II through XII grossly intact. Normal speech, normal gait. PSYCH: Normal mood, normal affect. SKIN: Warm, Dry, normal turgor, no rashes or lesions noted. - Labs CBC & Chem 7: 09/22/18 11:25 09/23/18 06:51 Labs: Abnormal Lab Results - Last 24 Hours (Table) 09/22/18 09/22/18 09/23/18 Range/Units 11:25 20:23 06:51 BUN 3 L 4 L (7-17) mg/dL Glucose 72 L (74-99) mg/dL POC Glucose (mg/dL) 137 H (75-99) mg/dL Calcium 8.3 L (8.4-10.2) mg/dL AST 78 H (14-36) U/L ALT 167 H (9-52) U/L Total Protein 6.2 L (6.3-8.2) g/dL Albumin 3.4 L (3.5-5.0) g/dL Microbiology - Last 24 Hours (Table) 09/20/18 19:35 Blood Culture - Preliminary Blood No Growth after 48 hours Assessment and Plan (1) Intractable abdominal pain Current Visit: Yes Status: Acute Code(s): R10.9 - UNSPECIFIED ABDOMINAL PAIN SNOMED Code(s): 07266187 (2) Diabetes Current Visit: Yes Status: Acute Code(s): E11.9 - TYPE 2 DIABETES MELLITUS WITHOUT COMPLICATIONS SNOMED Code(s): 76883605 (3) Moderate major depression Current Visit: Yes Status: Acute Code(s): F32.1 - MAJOR DEPRESSIVE DISORDER, SINGLE EPISODE, MODERATE SNOMED Code(s): 727927 (4) Essential (primary) hypertension Current Visit: Yes Status: Acute Code(s): I10 - ESSENTIAL (PRIMARY) HYPERTENSION SNOMED Code(s): 19135761 (5) Lumbar and sacral spondyloarthritis Current Visit: No Status: Chronic Code(s): M48.9 - SPONDYLOPATHY, UNS PECIFIED SNOMED Code(s): 805289609 (6) Lumbar radiculopathy, chronic Current Visit: No Status: Chronic Code(s): M54.16 - RADICULOPATHY, LUMBAR REGION SNOMED Code(s): 971303196 (7) Hypomagnesemia Current Visit: Yes Status: Acute Code(s): E83.42 - HYPOMAGNESEMIA SNOMED Code(s): 592318662 Plan: Wait on her upcoming EGD today. Continue IV fluids and clear liquid diet. reschedule her pain injection of the lumbar area due to recurrent hospitalization. The patient is possible that we'll discharge her this afternoon after EGD. Otherwise sHe'll be reevaluated in the next 24 hours.
[2018-09-23] MEDS ORDERED: LIDOCAINE 1% INJ 10MG/ML (20 ML MDV) ONE (09:54)
[2018-09-23] MEDS ORDERED: fentaNYL (PF) 50 MCG/ML 2 ML AMP ONE (09:54)
[2018-09-23] MEDS ORDERED: PROPOFOL 10 MG/ML 20 ML VIAL IV ONE (09:54)
[2018-09-23] MEDS ORDERED: IV FLUID CONTINUATION 900 ML IV ONE (10:00)
--- NOTE | 2018-09-23 10:12 | P.OP ---
Date of Procedure: 09/23/18 Preoperative Diagnosis: Epigastric abdominal pain Postoperative Diagnosis: Mild antral gastritis Procedure(s) Performed: EGD Anesthesia: MAC Surgeon: Michael Gong Pathology: other (Antrum) Condition: stable Disposition: PACU Description of Procedure: The patient's placed on the endoscopy table in the lateral position. She received IV sedation. The gastroscope placed oropharynx passed in the esophagus and into the stomach. Scope was then placed through the pylorus. The first and second portion of duodenum appeared normal. There is no evidence of any duodenal ulcer or bleeding. Scope was then brought back into the antrum and this was minimal inflamed. A biopsy was performed. The scope was unretroflexed and remainder of the stomach appeared normal. There was no significant inflammation of the stomach. There is known to the ulcers. The GE junction was at 40 . The distal esophagus appeared normal. The proximal esophagus appeared normal. Scope was withdrawn for patient.
[2018-09-23 10:57] LABS: Glucose,Whole Blood 82 mg/dL (75-99)
--- NOTE | 2018-09-23 13:50 | P.DS ---
Providers Date of admission: 09/23/18 10:07 Expected date of discharge: 09/23/18 Attending physician: Connor King Consults: 09/21/18 16:42 Consult Physician Routine Consulting Provider: Michael Gong Consult Reason/Comments: upper epigastric pain Do you want consulting provider notified?: Yes Primary care physician: Connor King - Discharge Diagnosis(es) (1) Intractable abdominal pain Current Visit: Yes Status: Acute (2) Diabetes Current Visit: Yes Status: Acute (3) Moderate major depression Current Visit: Yes Status: Acute (4) Essential (primary) hypertension Current Visit: Yes Status: Acute (5) Lumbar and sacral spondyloarthritis Current Visit: No Status: Chronic (6) Lumbar radiculopathy, chronic Current Visit: No Status: Chronic (7) Hypomagnesemia Current Visit: Yes Status: Acute Hospital Course: This is a pleasant 48-year-old Czech female in obvious distress from epigastric abdominal pain. She indicates a 40 history of ongoing abdominal pain, nausea, emesis, watery diarrhea, and feelings of malaise. She's been in the emergency room several times now. CT abdomen and pelvis and now on ultrasound of pelvis he'll show any significant findings. Laboratory studies appear normal. Influenza swab was normal. She takes chronic pain medications for chronic low back pain. She has history of migraine headache and depression. Hypertension and diabetes. Currently she is on IV fluids and uncomfortable due to pain. She denies any chest pains, pressures or shortness of breath with this episode. She does not have any coughing. 09/22/2018: Patient remains on IV pain medications of Dilaudid. reports she is taking some liquids for popsicles or really anything much at all. She continues to complain of significant pain. She indicates a GI cocktail didn't improve her symptoms a little bit yesterday. She indicates her diarrhea is slightly less. Surgery has seen her and their recommendations are pending. She remains afebrile. Pulse rate is improved. Blood pressure remained controlled. She continues on IV fluids of normal saline at 100 mL an hour 09/23/2018: Patient appears better today. She is no longer reading obtained. She indicates she has not had any diarrhea in 24 hours. Has not really eaten much. She does continue to feel nauseated and didn't have emesis when she does a narrowing. She denies any chest pains, pressures, shortness breath. She remains afebrile. Heart rate is normal. She continues on Dilaudid for pain medication. On her was on hold. She is scheduled for a epidural procedure of her lower back, which will be rescheduled due to her hospitalization. General surgery seen her yesterday. She has a history of H. pylori. They're planning on repeating EGD today. CT abdomen and pelvis was negative. addendum 09/23/2018: pateint S/P EGD with minimal findings. She is better and tolerating a diet. She will be sent home and F/U in the office soon. Patient Condition at Discharge: Fair Plan - Discharge Summary New Discharge Prescriptions: Continue Docusate Sodium [Dulcolax Stool Softener] 100 mg PO HS Citalopram Hydrobromide [CeleXA] 20 mg PO QAM Omeprazole [PriLOSEC] 20 mg PO BID clonazePAM [Clonazepam] 2 mg PO HS Albuterol Inhaler [Ventolin Hfa Inhaler] 2 puff INHALATION RT-QID PRN PRN Reason: Shortness Of Breath Cyclobenzaprine [Flexeril] 10 mg PO TID Verapamil HCl [Verapamil ER] 120 mg PO QAM Prochlorperazine [Compazine] 10 mg PO TID Ibuprofen [Motrin] 800 mg PO TID Oxybutynin Chloride [Ditropan] 5 mg PO BID OXcarbazepine [Oxtellar Xr] 900 mg PO HS Fenofibrate 160 mg PO HS Azelastine HCl [Optivar 0.05% Ophth Soln] 1 drop BOTH EYES DAILY Cetirizine HCl 10 mg PO DAILY Losartan [Cozaar] 50 mg PO QAM Lidocaine 4% Cream [Lmx 4] 1 applic TOPICAL BID Fluticasone Nasal [place] [Flonase Nasal [place]] 1 spray EA NOSTRIL DAILY Gabapentin 600 mg PO TID metFORMIN HCL [metFORMIN HCL ER] 500 mg PO BID Albuterol Nebulized (Conc) [Ventolin Nebulized (Conc)] 2.5 mg INHALATION RT- DAILY PRN PRN Reason: Dyspnea Famotidine [Pepcid] 40 mg PO DAILY Butalb/APAP/Caff 50-325-40Mg [Fioricet 50-325-40] 1 tab PO Q8H PRN PRN Reason: Headache HYDROcodone/APAP 10-325MG [[place] 10-325] 1 tab PO BID Ondansetron [Zofran] 4 mg PO Q8HR PRN #15 tab PRN Reason: Nausea Discharge Medication List Docusate Sodium [Dulcolax Stool Softener] 100 mg PO HS 03/03/14 [History] Citalopram Hydrobromide [CeleXA] 20 mg PO QAM 04/03/14 [History] Omeprazole [PriLOSEC] 20 mg PO BID 04/03/14 [History] clonazePAM [Clonazepam] 2 mg PO HS 10/12/14 [History] Albuterol Inhaler [Ventolin Hfa Inhaler] 2 puff INHALATION RT-QID PRN 11/23/14 [History] Cyclobenzaprine [Flexeril] 10 mg PO TID 02/02/15 [History] Azelastine HCl [Optivar 0.05% Ophth Soln] 1 drop BOTH EYES DAILY 06/12/16 [History] Fenofibrate 160 mg PO HS 06/12/16 [History] Ibuprofen [Motrin] 800 mg PO TID 06/12/16 [History] OXcarbazepine [Oxtellar Xr] 900 mg PO HS 06/12/16 [History] Oxybutynin Chloride [Ditropan] 5 mg PO BID 06/12/16 [History] Prochlorperazine [Compazine] 10 mg PO TID 06/12/16 [History] Verapamil HCl [Verapamil ER] 120 mg PO QAM 06/12/16 [History] Cetirizine HCl 10 mg PO DAILY 05/01/17 [History] Lidocaine 4% Cream [Lmx 4] 1 applic TOPICAL BID 03/05/18 [History] Losartan [Cozaar] 50 mg PO QAM 03/05/18 [History] Fluticasone Nasal [place] [Flonase Nasal [place]] 1 spray EA NOSTRIL DAILY 06/07/18 [History] Gabapentin 600 mg PO TID 06/07/18 [History] metFORMIN HCL [metFORMIN HCL ER] 500 mg PO BID 06/07/18 [History] Albuterol Nebulized (Conc) [Ventolin Nebulized (Conc)] 2.5 mg INHALATION RT- DAILY PRN 07/24/18 [History] Butalb/APAP/Caff 50-325-40Mg [Fioricet 50-325-40] 1 tab PO Q8H PRN 09/19/18 [History] Famotidine [Pepcid] 40 mg PO DAILY 09/19/18 [History] HYDROcodone/APAP 10-325MG [[place] 10-325] 1 tab PO BID 09/19/18 [History] Ondansetron [Zofran] 4 mg PO Q8HR PRN #15 tab 09/19/18 [Rx] Follow up Appointment(s)/Referral(s): Connor King Jr, DO [Primary Care Provider] - 1-2 days Michael Gong MD [STAFF PHYSICIAN] - 1 Week Discharge Disposition: HOME SELF-CARE Pending Studies Pending Results: reschedule Outpatient Epidural injection that was to take place 09/23/2018 for a future date.
== END 2018-09-23 17:10 | disposition home or self-care (01) | DRG 392 ==
LOC: EC 18:33 → 3NMEDONC 23:36 → OBSVTOIN 09-23 10:07
PROVIDERS: ADMIT Family Medicine; ATTEND Family Medicine
PROC: 0DB78ZX Excision of Stomach, Pylorus, Via Natural or Artificial Opening Endoscopic, Diagnostic (ICD-10-PCS; principal; 2018-09-23 09:45)
DX: K29.70 Gastritis, unspecified, without bleeding (principal); F32.1 Major depressive disorder, single episode, moderate; E11.9 Type 2 diabetes mellitus without complications; E78.5 Hyperlipidemia, unspecified; E83.42 Hypomagnesemia; G40.409 Other generalized epilepsy and epileptic syndromes, not intractable, without status epilepticus; G47.419 Narcolepsy without cataplexy; G89.29 Other chronic pain; I10 Essential (primary) hypertension; J45.909 Unspecified asthma, uncomplicated; K21.9 Gastro-esophageal reflux disease without esophagitis; M54.16 Radiculopathy, lumbar region; Z79.84 Long term (current) use of oral hypoglycemic drugs; Z79.899 Other long term (current) drug therapy; Z86.19 Personal history of other infectious and parasitic diseases; Z87.442 Personal history of urinary calculi; Z87.891 Personal history of nicotine dependence; Z90.49 Acquired absence of other specified parts of digestive tract; Z90.710 Acquired absence of both cervix and uterus; Z79.891 Long term (current) use of opiate analgesic; M47.9 Spondylosis, unspecified
CPT/HCPCS: 36415; 43239; 74022; 74177; 76705; 80048; 80053; 81003; 81025; 82150; 83036; 83605; 83690; 83735; 84443; 84484; 85025; 87040; 87502; 88305; 93005; 96361; 96365; 96366; 96375; 96376; 99285

== ENCOUNTER 2018-10-01 06:12 | Day surgery (SDC) | payer OTHER ==
[2018-09-27 09:13] VITALS: BMI 35.3
[~2018-10-01 06:12] MED LIST changes: +LACTATED RINGERS 1,000 ML IV SCH; -SODIUM CHLORIDE 0.9% 500 ML 500 ML IV SCH
[2018-10-01] MEDS ORDERED: LIDOCAINE 1% 20 ML VIAL (10MG/ML) FOR IV START INTRADERMA ONE (06:55)
[2018-10-01 07:09] VITALS: BP 112/64; PULSE 84; RESP 16; TEMP 97.9
[2018-10-01 07:15] LABS: Glucose,Whole Blood 83 mg/dL (75-99)
--- NOTE | 2018-10-01 08:19 | P.PN ---
Progress Note - Text Progress Note Date: 10/01/18 This is 48 years old female, with a history of low back pain taken lumbar spondylosis and lumbar facet arthropathy, the patient was seen in pain clinic in a few weeks ago and she was scheduled to have right side diagnostic medial branch block , today in the preoperative holding area ,the patient reported ,that she is always complaining of pain on both sides, even though the pain in the right side is more severe ,but she had pain in the low back area bilaterally , patient will be good candidate to have bilateral diagnostic medial branch block lumbar area, patient need prior authorization before we can proceed with bilateral medial branch block , Patient will be seen in the pain clinic, as a consultation ,then we will document the need to do a bilateral block.
== END 2018-10-01 08:19 | disposition home or self-care (01) ==
LOC: ORPAIN 06:12
PROVIDERS: ATTEND Specialist
DX: M47.816 Spondylosis without myelopathy or radiculopathy, lumbar region (principal); I10 Essential (primary) hypertension; J45.909 Unspecified asthma, uncomplicated; G47.33 Obstructive sleep apnea (adult) (pediatric); K21.9 Gastro-esophageal reflux disease without esophagitis; Z88.1 Allergy status to other antibiotic agents; Z88.8 Allergy status to other drugs, medicaments and biological substances

== ENCOUNTER → 2018-10-10 | Outpatient (CLI) | payer OTHER ==
[2018-10-10 13:57] VITALS: BP 126/88; PULSE 100; RESP 16
--- NOTE | 2018-10-11 10:09 | P.PN ---
Subjective Progress Note Date: 10/10/18 This is a follow-up visit for this [id number] female with a chronic history of neck pain and low back pain, patient reported that also the pain on the right side, but she has pain bilaterally, she had a new MRI of the lumbar spine done and showed patient had multilevel lumbar bulging disc disease and multilevel lumbar facet arthropathy and there is bilateral foraminal stenosis at L4 5, previously we have done lumbar epidural steroid injection 3, and she continued to have severe low back pain, the pain is constant and increases with any activity. She denies any motor or sensory deficit. She had some numbness and tingling sensation in the left lower extremity, she denies any fever or night sweats, patient continued to use Motrin 800 mg 3 times a day, [place] 10/325 every 12 hours when necessary, and Neurontin 600 mg 3 times a day, Flexeril 10 mg 3 times a day, she is getting prescription refills from the primary care and she denies any side effects of the medication Objective - Vital Signs Vital signs: Vital Signs Temp Pulse 100 10/10/18 13:51 Resp 16 10/10/18 13:51 BP 126/88 10/10/18 13:51 Pulse Ox 98 10/10/18 13:51 Intake & Output 10/10/18 10/11/18 10/11/18 18:59 06:59 18:59 Weight 83.915 kg - Exam Physical Examinations : -Constitutiona : Cooperative , not in acute distress . -HEENT : nech ; supple , no Lymphadenopathy , normal thyroid size . eyes : no ptosis , no icterus, no photophobia . ENT : normal of hearing , normal oropharynx , no Thrush . - Respiratory : Chest clear to auscultations Bilaterally , no wheezing , no Rhonchi . - Cardiovascula : regular rate and rhythem , S1 , S2 , no S3 , no S4. - Gastrointestina : abdomen soft no tenderness , bowel sounds , no organomegally . - Genitourinary : Defferred . - neurologic : Cranial nerve II to XII intact , no focal neurological deffecit . -psychatric : alert , oriented X 3 , appropriate affect , intact judgment and insight . -Lymphatic : no Lymphadenopathy . - musculoskeltal : Cervical Spine motor stregnth in the deltoid and biceps, normal right side , normal Left side motor stregnth biceps and the wrist extensors normal right side ,normal left side . motor stregnth in the triceps muscle . normal Right side , normal Left side deep tendon reflexes normal at the biceps , normal at Brachioradialis , normal at triceps. positive cervical facet loading test .. Lumber spine moter stegnth lower extremities ,thigh and legs 5/5 Right side , 5/5 Left side deep tendon reflexes : normal Knee Jerk , normal ankle Jerk positive lumber facet Loading Test Range of motion of the lumbar spine Flexion 30 degrees, extension 10 degrees strait leg raising test , positive at 45 degree Fabere test positive RT and positive LT . Sever tenderness over the Sacroiliac joint on the Right side Gaenslen test positive on the right side Seated flexion test positive on the right side Assessment and Plan Plan: Assessment and plan=1-chronic neck pain secondary to cervical spondylosis, neck pain improved after radiofrequency ablation of the medial paracervical area Done last year. 2-chronic severe low back pain secondary to lumbar degenerative disc disease, lumbar spondylosis and lumbar facet arthropathy without myelopathy, and right sacroiliitis. Patient continued to have severe low back pain after lumbar epidural steroid injections 3 Patient is a good candidate to have right-side diagnostic medial branch blocks lumbar area at L3 4, L4 5, and L5-S1 Twice then later on if it's positive RFA radiofrequency on the right side (Patient's insurance approved only 4 leveles on one side or 2 leveles on each side , for this reason we didn't do 3 levels on the right and will finish the treatment and later on we'll treat the left side ) Patient will continue to use her current medication. She is getting prescriptions from primary care - PQRS measures = - Patient's medications are documented in the chart. -Tobacco use is negative and counseling.Given. -Patient's has not received pneumococcal vaccine. -Advanced care planning discussed, patient not eligible. -Opiate contract not signed. -Pain positive and follow-up visit/procedure is scheduled. -Patient's blood pressure measured [126/88 ] , and documented in the record ,and patient will follow up with the primary care. -Patient's weight was measured and body mass index [ 35 ] above the, normal limits and counseling was done. and patient instructed to follow-up with the primary care physician. -Patient was not identified as an unhealthy alcohol user Time with Patient: Less than 30
== END ==
LOC: PNWHC3 13:37
PROVIDERS: ATTEND Specialist
DX: G89.29 Other chronic pain (principal); M51.36 Other intervertebral disc degeneration, lumbar region; M47.816 Spondylosis without myelopathy or radiculopathy, lumbar region; M46.96 Unspecified inflammatory spondylopathy, lumbar region; M47.812 Spondylosis without myelopathy or radiculopathy, cervical region; M46.1 Sacroiliitis, not elsewhere classified; Z79.891 Long term (current) use of opiate analgesic; Z79.1 Long term (current) use of non-steroidal anti-inflammatories (NSAID); Z79.899 Other long term (current) drug therapy
CPT/HCPCS: 99211

== ENCOUNTER → 2018-10-21 | Day surgery (SDC) | payer OTHER ==
[2018-10-17 08:49] VITALS: BMI 34.0
[~2018-10-21] MED LIST changes: +IV FLUID CONTINUATION 1,000 ML IV ONE; +LACTATED RINGERS 1,000 ML IV ONE; -LACTATED RINGERS 1,000 ML IV SCH; +LIDOCAINE 1% 20 ML VIAL (10MG/ML) FOR IV START INTRADERMA ONE
[2018-10-21 06:34] VITALS: RESP 16
[2018-10-21 06:51] LABS: Glucose,Whole Blood 83 mg/dL (75-99)
[2018-10-21 06:55] VITALS: TEMP 98
--- NOTE | 2018-10-21 07:51 | P.PCN ---
Date of Procedure: 10/21/18 Surgeon: Jamee Gonzalez Pathology: none sent Condition: stable Disposition: PACU Description of Procedure: PREOPERATIVE DIAGNOSIS : 1- Lumbar spondylosis with Facet Arthropathy without myelopathy . 2- Lumber degenerative disc disease POSTOPERATIVE DIAGNOSIS: 1- Lumbar spondylosis with Facet Arthropathy without myelopathy . 2- Lumber degenerative disc disease PROCEDURE: Diagnostic right L2-3, L3 -4 , L4 -5 , and L5-S1 medial branch block under fluoroscopy ANESTHESIA: Local with 1% lidocaine; IV moderate conscious sedation with Versed 2 mg and 50 g of fentanyl. EBL: Negligible COMPLICATION: None. PROCEDURE INDICATION: Chronic low back pain secondary to Facet arthropathy unresponsive to conservative treatment. PROCEDURE DESCRIPTION: the patient was seen and identified in the preop holding area , risks and benefits and possible complications of the procedure and alternatives were discussed with the patient, and the patient agreed to proceed with the procedure and signed the consent. IV was started and vital signs monitored during the procedure and fluoroscopy was used to maximize the benefit and accuracy of the needle placement, sedation was given to decrease patient anxiety, patient was taken to the procedure room and placed in prone position vital signs monitored. The patient was brought into the procedure room and placed in prone position. Skin was prepped with Chloraprep and draped in a sterile manner. Lidocaine 1% was used to numb the skin up at the target points that were chosen as follows: at the L5-S1 level which corresponds to the dorsal ramus of L5 the target points were at the superior medial aspect of the sacral ala on the right side of the spine on the AP view of fluoroscopy, and for theL2, L3 and L4 medial branches the target points were the connection between the transverse process and the superior to go process of L3, L4 and L5 respectively on the right oblique view of fluoroscopy. I used 22-gauge 3-1/2 inch Quincke spinal needles for this procedure and after contacting bone at the target points mentioned above I injected 1 mL of a mixture of Kenalog 40 mg +3 MLS of Marcaine 0.5% PF . Patient tolerated procedure well. At the end of the procedure the needles removed and a bandage applied after the skin was cleaned the cleaning solution. patient was then taken to the recovery room in
[2018-10-21 08:12] VITALS: PULSE 95
[2018-10-21 08:29] VITALS: BP 125/88
--- NOTE | 2018-10-21 08:49 | FL ---
EXAMINATION TYPE: FL guided pain mgmt statistic DATE OF EXAM: 10/21/2018 HISTORY: Flouroscopy time 6 seconds of fluoroscopy provided. IMPRESSION: 1. Fluoroscopy time.
== END | disposition home or self-care (01) ==
LOC: ORPAIN 06:14
PROVIDERS: ATTEND Anesthesiology
DX: M47.816 Spondylosis without myelopathy or radiculopathy, lumbar region (principal); M51.36 Other intervertebral disc degeneration, lumbar region; G89.29 Other chronic pain; E11.9 Type 2 diabetes mellitus without complications; E66.01 Morbid (severe) obesity due to excess calories; Z68.34 Body mass index [BMI] 34.0-34.9, adult
CPT/HCPCS: 64493; 64494; 64495; J2250; J3301; J3010; 99152

== ENCOUNTER → 2018-11-05 | Outpatient (CLI) | payer OTHER ==
[2018-11-05 12:51] VITALS: BP 111/72; PULSE 94; RESP 18
--- NOTE | 2018-11-05 13:39 | P.PAINPG ---
Subjective Progress Note Date: 11/05/18 This is a follow-up visit for this [id number] female with a chronic history of neck pain and low back pain, she had a new MRI of the lumbar spine done and showed patient had multilevel lumbar bulging disc disease and multilevel lumbar facet arthropathy and there is bilateral foraminal stenosis at L4 5, previously we have done lumbar epidural steroid injection 3, and she continued to have severe low back pain, she had 0 benefit from it , recently we have done a right- sided diagnostic medial branch block lumbar area L2 to S1 , and she reported that her pain level was 8/10 before the block , and continued to be 8/10 after the block ( she had negative results )the pain is constant and increases with any activity. Glides mostly in the right low back area and radiated to the right buttock, She denies any motor or sensory deficit. She had some numbness and tingling sensation in the left lower extremity, she denies any fever or night sweats, patient continued to use Motrin 800 mg 3 times a day, [place] 10/325 every 12 hours when necessary, and Neurontin 600 mg 3 times a day, Flexeril 10 mg 3 times a day, she is getting prescription refills from the primary care and she denies any side effects of the medication Physical Examinations : -Constitutiona : Cooperative , not in acute distress . -HEENT : nech ; supple , no Lymphadenopathy , normal thyroid size . eyes : no ptosis , no icterus, no photophobia . ENT : normal of hearing , normal oropharynx , no Thrush . - Respiratory : Chest clear to auscultations Bilaterally , no wheezing , no Rhonchi . - Cardiovascula : regular rate and rhythem , S1 , S2 , no S3 , no S4. - Gastrointestina : abdomen soft no tenderness , bowel sounds , no organomegally . - Genitourinary : Defferred . - neurologic : Cranial nerve II to XII intact , no focal neurological deffecit . -psychatric : alert , oriented X 3 , appropriate affect , intact judgment and insight . -Lymphatic : no Lymphadenopathy . - musculoskeltal : Cervical Spine motor stregnth in the deltoid and biceps, normal right side , normal Left side motor stregnth biceps and the wrist extensors normal right side ,normal left side . motor stregnth in the triceps muscle . normal Right side , normal Left side deep tendon reflexes normal at the biceps , normal at Brachioradialis , normal at triceps. positive cervical facet loading test .. Lumber spine moter stegnth lower extremities ,thigh and legs 5/5 Right side , 5/5 Left side deep tendon reflexes : normal Knee Jerk , normal ankle Jerk positive lumber facet Loading Test Range of motion of the lumbar spine Flexion 30 degrees, extension 10 degrees strait leg raising test , positive at 45 degree Fabere test positive RT and positive LT . Sever tenderness over the Sacroiliac joint on the Right side Gaenslen test positive on the right side Seated flexion test positive on the right side Assessment and plan=1-chronic neck pain secondary to cervical spondylosis, neck pain improved after radiofrequency ablation of the medial paracervical area Done last year. 2-chronic severe low back pain secondary to lumbar degenerative disc disease, lumbar spondylosis and lumbar facet arthropathy without myelopathy, and right sacroiliitis. Patient continued to have severe low back pain after lumbar epidural steroid injections 3 Patient continued to have severe low back pain after right-side diagnostic medial branch blocks lumbar area at L3 4, L4 5, and L5-S1 We will schedule patient to have right-sided sacroiliac joint steroid injection under fluoroscopy guidance Patient will continue to use her current medication. She is getting prescriptions from primary care Objective - Vital Signs Vital signs: Vital Signs Temp Pulse 94 11/05/18 12:44 Resp 18 11/05/18 12:44 BP 111/72 11/05/18 12:44 Pulse Ox 97 11/05/18 12:44 PQRS Measure Charge Sheet Measure #130: Documentation of Current Meds in Medical Chart: Patient's medications documented in chart Measure #226: Tobacco Use: Screen & Cessation Intervention: Pt not a tobacco user Measure #111: Pneumonia Vaccination: Pneumococcal vaccine NOT administered or previously given Measure #47: Advance Care Plan: Advance care planning discussed & documented, pt chose/unable to give Measure #412: Opioid Treatment Agreement: No documentation of signed opioid treatment agreement Measure #408: Opioid Therapy Follow-up Evaluation: Patient had NO f/u eval minimum every 3 months during opioid therapy Measure #317: Preventitive Care & Scrn High Bld Press & F/U: Normal blood pressure, f/u not required Measure #128: Body Mass Index (BMI) Screening & Follow-up: BMI documented ABOVE normal parameters - f/u documented Measure #131: Pain Assessment & Follow-up: Pain positive & plan documented, Follow-up scheduled Measure #431: Unhealthy Alcohol Use Preventative Care & Scrn: Patient not i dentified as an unhealthy alcohol user PQRS Narrative: Smoking Status Former smoker Do You Want the Pneumonia No Vaccine AT THIS TIME? Blood Pressure 111/72 Pain Intensity [Lower Back] 8 Scale Used Numeric (1 - 10) Hx Alcohol Use (MH) No Home Medications: Ambulatory Orders Docusate Sodium [Dulcolax Stool Softener] 100 mg PO HS 03/03/14 Citalopram Hydrobromide [CeleXA] 20 mg PO QAM 04/03/14 Omeprazole [PriLOSEC] 20 mg PO BID 04/03/14 clonazePAM [Clonazepam] 2 mg PO HS 10/12/14 Albuterol Inhaler [Ventolin Hfa Inhaler] 2 puff INHALATION QID PRN 11/23/14 Cyclobenzaprine [Flexeril] 10 mg PO TID 02/02/15 Azelastine HCl [Optivar 0.05% Ophth Soln] 1 drop BOTH EYES DAILY 06/12/16 Fenofibrate 160 mg PO HS 06/12/16 Ibuprofen [Motrin] 800 mg PO TID 06/12/16 OXcarbazepine [Oxtellar Xr] 900 mg PO HS 06/12/16 Oxybutynin Chloride [Ditropan] 5 mg PO BID 06/12/16 Prochlorperazine [Compazine] 10 mg PO BID 06/12/16 Verapamil HCl [Verapamil ER] 120 mg PO QAM 06/12/16 Cetirizine HCl 10 mg PO DAILY 05/01/17 Lidocaine 4% Cream [Lmx 4] 1 applic TOPICAL BID 03/05/18 Losartan [Cozaar] 50 mg PO QAM 03/05/18 Fluticasone Nasal [place] [Flonase Nasal [place]] 1 spray EA NOSTRIL DAILY 06/07/18 Gabapentin 600 mg PO TID 06/07/18 metFORMIN HCL [metFORMIN HCL ER] 500 mg PO BID 06/07/18 Albuterol Nebulized (Conc) [Ventolin Nebulized (Conc)] 2.5 mg INHALATION DAILY PRN 07/24/18 Butalb/APAP/Caff 50-325-40Mg [Fioricet 50-325-40] 1 tab PO Q8H PRN 09/19/18 Famotidine [Pepcid] 40 mg PO DAILY 09/19/18 HYDROcodone/APAP 10-325MG [[place] 10-325] 1 tab PO BID 09/19/18 Controlled Substance Measures - Controlled Substance Measures Is patient prescribed a controlled substance at discharge?: No
== END ==
LOC: PNWHC3 11:53
PROVIDERS: ATTEND Specialist
DX: G89.29 Other chronic pain (principal); M47.812 Spondylosis without myelopathy or radiculopathy, cervical region; M51.36 Other intervertebral disc degeneration, lumbar region; M47.816 Spondylosis without myelopathy or radiculopathy, lumbar region; M46.96 Unspecified inflammatory spondylopathy, lumbar region; M46.1 Sacroiliitis, not elsewhere classified; Z87.891 Personal history of nicotine dependence; Z79.899 Other long term (current) drug therapy; Z79.1 Long term (current) use of non-steroidal anti-inflammatories (NSAID); Z79.84 Long term (current) use of oral hypoglycemic drugs; Z79.891 Long term (current) use of opiate analgesic
CPT/HCPCS: 99211

== ENCOUNTER 2018-11-12 06:23 | Day surgery (SDC) | payer OTHER ==
[2018-11-07 14:39] VITALS: BMI 35.9
[2018-11-12 07:04] VITALS: RESP 16; TEMP 97.9
[2018-11-12] MEDS ORDERED: LACTATED RINGERS 1,000 ML IV ONE (07:04)
[2018-11-12] MEDS ORDERED: LIDOCAINE 1% 20 ML VIAL (10MG/ML) FOR IV START SQ ONE (07:04)
[2018-11-12 07:07] LABS: Glucose,Whole Blood 82 mg/dL (75-99)
--- NOTE | 2018-11-12 07:27 | P.PCN ---
Date of Procedure: 11/12/18 Anesthesia: MAC Description of Procedure: Procedure: Sacroiliac joint injection right Preoperative diagnosis: Sacroiliitis Postoperative diagnosis: Sacroiliitis Complications: none Anesthesia: 1% lidocaine 5cc and 2 mg of Versed with 50 g of fentanyl Description of the procedure: procedure risk and benefits discussed with the patient, including but not limited, risk of infection and bleeding, and allergic reaction to the medication and incomplete pain relief. Patient agreed and signed consent. Patient was taken to the room and placed in a prone position. Chlorhexidine was used to cleanse the skin. Under sterile conditions patient skin was anesthetized 1% lidocaine. Subcutaneous tissues were also anesthetized with a total 5 mL of 1% lidocaine. After that, a 22-gauge spinal needle was advanced through the anesthetized location under fluoroscopic guidance. Needle was advanced into the inferior portion of the sacroiliac joint. IV contrast was used to confirm spread within the joint. After adequate spread was achieved, 2.5 ML's of 0.5% ropivacaine with 40 mg of triamcinolone was injected into the joint. Patient tolerated the procedure well. Sent to the recovery room in stable condition. Patient will follow up as directed.
[2018-11-12] MEDS ORDERED: IV FLUID CONTINUATION 1,000 ML IV ONE (07:31)
[2018-11-12 08:13] VITALS: BP 129/89; PULSE 89
--- NOTE | 2018-11-12 14:20 | FL ---
Fluoroscopy HISTORY: Pain 3 seconds fluoroscopy time supplied to the referring clinician. 1 intraoperative C-arm images docume nt the procedure. See dictated report from anesthesia.
== END 2018-11-12 08:22 | disposition home or self-care (01) ==
LOC: ORPAIN 06:23
PROVIDERS: ATTEND Hospitalist
DX: G89.29 Other chronic pain (principal); M46.1 Sacroiliitis, not elsewhere classified; M51.26 Other intervertebral disc displacement, lumbar region; M46.96 Unspecified inflammatory spondylopathy, lumbar region; M48.061 Spinal stenosis, lumbar region without neurogenic claudication; Z87.891 Personal history of nicotine dependence; Z79.84 Long term (current) use of oral hypoglycemic drugs; Z79.1 Long term (current) use of non-steroidal anti-inflammatories (NSAID); Z79.891 Long term (current) use of opiate analgesic; Z79.899 Other long term (current) drug therapy
CPT/HCPCS: J2250; J1030; J3010; G0260; 27096

== ENCOUNTER → 2019-01-08 | Outpatient (CLI) | payer OTHER ==
[2019-01-08 10:14] VITALS: BP 127/92; PULSE 97; RESP 18
--- NOTE | 2019-01-08 10:37 | P.PAINPG ---
Subjective Progress Note Date: 01/08/19 This is a follow-up visit for this [id number] female with a chronic history of neck pain and low back pain, she had a new MRI of the lumbar spine done and showed patient had multilevel lumbar bulging disc disease and multilevel lumbar facet arthropathy and there is bilateral foraminal stenosis at L4 5, previously we have done lumbar epidural steroid injection 3, and she continued to have severe low back pain, she had 0 benefit from it , recently we have done a right- sided diagnostic medial branch block lumbar area L2 to S1 , and she reported that her pain level was 8/10 before the block , and continued to be 8/10 after the block ( she had negative results )the pain is constant and increases with any activity. pain mostly in the right low back area and radiated to the right buttock, on 11/20/2018 health on right side sacroiliac joint steroid injection, she reported that she had significant improvement of her low back pain after the injection She denies any motor or sensory deficit. She had some numbness and tingling sensation in the left lower extremity, she denies any fever or night sweats, patient continued to use Motrin 800 mg 3 times a day, [place] 10/325 every 12 hours when necessary, and Neurontin 600 mg 3 times a day, Flexeril 10 mg 3 times a day, she is getting prescription refills from the primary care and she denies any side effects of the medication Physical Examinations : -Constitutiona : Cooperative , not in acute distress . -HEENT : nech ; supple , no Lymphadenopathy , normal thyroid size . eyes : no ptosis , no icterus, no photophobia . ENT : normal of hearing , normal oropharynx , no Thrush . - Respiratory : Chest clear to auscultations Bilaterally , no wheezing , no Rhonchi . - Cardiovascula : regular rate and rhythem , S1 , S2 , no S3 , no S4. - Gastrointestina : abdomen soft no tenderness , bowel sounds , no organomegally . - Genitourinary : Defferred . - neurologic : Cranial nerve II to XII intact , no focal neurological deffecit . -psychatric : alert , oriented X 3 , appropriate affect , intact judgment and insight . -Lymphatic : no Lymphadenopathy . - musculoskeltal : Cervical Spine motor stregnth in the deltoid and biceps, normal right side , normal Left side motor stregnth biceps and the wrist extensors normal right side ,normal left side . motor stregnth in the triceps muscle . normal Right side , normal Left side deep tendon reflexes normal at the biceps , normal at Brachioradialis , normal at triceps. positive cervical facet loading test .. Lumber spine moter stegnth lower extremities ,thigh and legs 5/5 Right side , 5/5 Left side deep tendon reflexes : normal Knee Jerk , normal ankle Jerk positive lumber facet Loading Test Range of motion of the lumbar spine Flexion 30 degrees, extension 10 degrees strait leg raising test , positive at 45 degree Fabere test positive RT and positive LT . Sever tenderness over the Sacroiliac joint on the Right side Gaenslen test positive on the right side Seated flexion test positive on the right side Assessment and plan=1-chronic neck pain secondary to cervical spondylosis, neck pain improved after radiofrequency ablation of the medial paracervical area Done last year. 2-chronic severe low back pain secondary to lumbar degenerative disc disease, lumbar spondylosis and lumbar facet arthropathy without myelopathy, and right sacroiliitis. Status post right sacroiliac joint steroid injection with excellent pain relief. Patient could benefit from repeat right-sided sacroiliac joint steroid injection under fluoroscopy guidance Objective - Vital Signs Vital signs: Vital Signs Temp Pulse 97 01/08/19 10:07 Resp 18 01/08/19 10:07 BP 127/92 01/08/19 10:07 Pulse Ox 99 01/08/19 10:07 Intake & Output 01/07/19 01/08/19 01/08/19 18:59 06:59 18:59 Weight 79.379 kg PQRS Measure Charge Sheet Measure #130: Documentation of Current Meds in Medical Chart: Patient's medications documented in chart Measure #226: Tobacco Use: Screen & Cessation Intervention: Pt not a tobacco user Measure #111: Pneumonia Vaccination: Pneumococcal vaccine NOT administered or previously given Measure #47: Advance Care Plan: Advance care planning discussed & documented, pt chose/unable to give Measure #412: Opioid Treatment Agreement: No documentation of signed opioid treatment agreement Measure #408: Opioid Therapy Follow-up Evaluation: Patient had NO f/u eval minimum every 3 months during opioid therapy Measure #317: Preventitive Care & Scrn High Bld Press & F/U: Normal blood pressure, f/u not required Measure #128: Body Mass Index (BMI) Screening & Follow-up: BMI documented ABOVE normal parameters - f/u documented Measure #131: Pain Assessment & Follow-up: Pain positive & plan documented, Follow-up scheduled Measure #431: Unhealthy Alcohol Use Preventative Care & Scrn: Patient not identified as an unhealthy alcohol user PQRS Narrative: Smoking Status Former smoker Blood Pressure 127/92 Pain Intensity [Right Lower 8 Back] Scale Used Numeric (1 - 10) Hx Alcohol Use (MH) No Home Medications: Ambulatory Orders Docusate Sodium [Dulcolax Stool Softener] 100 mg PO HS 03/03/14 Citalopram Hydrobromide [CeleXA] 20 mg PO QAM 04/03/14 Omeprazole [PriLOSEC] 20 mg PO BID 04/03/14 clonazePAM [Clonazepam] 2 mg PO HS 10/12/14 Albuterol Inhaler [Ventolin Hfa Inhaler] 2 puff INHALATION QID PRN 11/23/14 Cyclobenzaprine [Flexeril] 10 mg PO TID 02/02/15 Azelastine HCl [Optivar 0.05% Ophth Soln] 1 drop BOTH EYES DAILY 06/12/16 Fenofibrate 160 mg PO HS 06/12/16 Ibuprofen [Motrin] 800 mg PO TID 06/12/16 OXcarbazepine [Oxtellar Xr] 900 mg PO HS 06/12/16 Oxybutynin Chloride [Ditropan] 5 mg PO BID 06/12/16 Prochlorperazine [Compazine] 10 mg PO BID 06/12/16 Verapamil HCl [Verapamil ER] 120 mg PO QAM 06/12/16 Cetirizine HCl 10 mg PO DAILY 05/01/17 Lidocaine 4% Cream [Lmx 4] 1 applic TOPICAL BID 03/05/18 Losartan [Cozaar] 50 mg PO QAM 03/05/18 Fluticasone Nasal [place] [Flonase Nasal [place]] 1 spray EA NOSTRIL DAILY 06/07/18 Gabapentin 600 mg PO TID 06/07/18 metFORMIN HCL [metFORMIN HCL ER] 500 mg PO BID 06/07/18 Albuterol Nebulized (Conc) [Ventolin Nebulized (Conc)] 2.5 mg INHALATION DAILY PRN 07/24/18 Butalb/APAP/Caff 50-325-40Mg [Fioricet 50-325-40] 1 tab PO Q8H PRN 09/19/18 Famotidine [Pepcid] 40 mg PO DAILY 09/19/18 HYDROcodone/APAP 10-325MG [[place] 10-325] 1 tab PO BID 09/19/18 Controlled Substance Measures - Controlled Substance Measures Is patient prescribed a controlled substance at discharge?: No
== END | disposition home or self-care (01) ==
LOC: PNWHC3 09:49
PROVIDERS: ATTEND Specialist
DX: G89.29 Other chronic pain (principal); M51.36 Other intervertebral disc degeneration, lumbar region; M47.816 Spondylosis without myelopathy or radiculopathy, lumbar region; M47.812 Spondylosis without myelopathy or radiculopathy, cervical region; M46.96 Unspecified inflammatory spondylopathy, lumbar region; M46.1 Sacroiliitis, not elsewhere classified; Z87.891 Personal history of nicotine dependence; Z98.890 Other specified postprocedural states; Z79.891 Long term (current) use of opiate analgesic; Z79.84 Long term (current) use of oral hypoglycemic drugs; Z79.899 Other long term (current) drug therapy
CPT/HCPCS: 99211

== ENCOUNTER 2019-01-27 08:18 | Day surgery (SDC) | payer OTHER ==
[2019-01-21 15:08] VITALS: BMI 35.5
[~2019-01-27 08:18] MED LIST changes: -IV FLUID CONTINUATION 1,000 ML IV ONE; -LACTATED RINGERS 1,000 ML IV ONE; +LACTATED RINGERS 1,000 ML IV SCH; -LIDOCAINE 1% 20 ML VIAL (10MG/ML) FOR IV START INTRADERMA ONE
[2019-01-27 09:13] VITALS: TEMP 97.4
[2019-01-27 09:22] LABS: Glucose,Whole Blood 83 mg/dL (75-99)
--- NOTE | 2019-01-27 10:48 | P.PCN ---
Date of Procedure: 01/27/19 Procedure(s) Performed: Preoperative diagnoses: right sacroilitis Postoperative diagnoses: right sacroilitis. Procedure: right sacroiliac joint steroid injection under fluoroscopic guidance. Surgeon: Jesus Navarro MD Anesthesia: [2 mL of 1% lidocaine/IV sedation per hospital guidelines] Fluoroscopy was used for the procedure and fluoroscopic images were saved to the radiology portion of the patient's chart. EBL: None Procedure indication: The patient had a history of severe chronic low back pain, diagnosed with sacroiliitis unresponsive to conservative treatment. Procedure description: The patient was seen and identified in the preoperative holding area, risks and benefits and alternative of the procedure and possible complications discussed with the patient, and patient agreed with the preceding, patient signed the consent, an IV was started, and vital signs were monitored and were stable throughout the procedure, patient was placed in the prone position on table and the lumbosacral area was prepped and draped with a sterile fashion, vital signs were closely monitored during the procedure, the fluoroscopy camera was placed in the contralateral oblique view on the right sacroiliac joint and the lower part of the joint was identified . Then the skin and subcutaneous tissue was anesthetized using 2 mL of 1% lidocaine then a 22- gauge Quincke-type spinal needle advanced slowly under fluoroscopy and placed in the posterior and inferior border of the right sacroiliac joint, placement confirmed with AP and lateral view, and after appropriate needle placement confirmed and after negative aspiration for heme, 1 mL of Isovue 200 was injected revealing intra-articular spread. Then a solution consisting of 2 ml of ropivacaine 0.5% and 40 mg of Kenalog injected after negative aspiration, no paresthesia during the injection, no resistance to injection, and the needle was removed. Patient tolerated the procedure well without any complication. The patient was returned to supine position after the back was cleaned and a Band-Aid applied, the patient was transported to recovery room in stable condition and monitored for 30 minutes before being discharged home. The patient will follow up with the pain clinic in a few weeks
[2019-01-27] MEDS ORDERED: IV FLUID CONTINUATION 850 ML IV ONE (10:56)
[2019-01-27 11:03] VITALS: RESP 16
--- NOTE | 2019-01-27 11:17 | FL ---
EXAMINATION TYPE: FL guided pain mgmt statistic DATE OF EXAM: 01/27/2019 HISTORY: Flouroscopy time 4 seconds of fluoroscopy provided. IMPRESSION: 1. Fluoroscopy time.
[2019-01-27 11:27] VITALS: BP 139/91; PULSE 77
== END 2019-01-27 11:38 | disposition home or self-care (01) ==
LOC: ORPAIN 08:18
PROVIDERS: ATTEND Anesthesiology
DX: G89.29 Other chronic pain (principal); M46.1 Sacroiliitis, not elsewhere classified; M51.26 Other intervertebral disc displacement, lumbar region; M47.816 Spondylosis without myelopathy or radiculopathy, lumbar region; M47.812 Spondylosis without myelopathy or radiculopathy, cervical region; M48.061 Spinal stenosis, lumbar region without neurogenic claudication; Z79.891 Long term (current) use of opiate analgesic; Z79.899 Other long term (current) drug therapy; Z87.891 Personal history of nicotine dependence
CPT/HCPCS: J2250; J3301; J3010; Q9966; G0260; 27096; 99152

== ENCOUNTER → 2019-02-04 | Outpatient (CLI) | payer OTHER ==
--- NOTE | 2019-02-04 15:18 | XR ---
Right elbow HISTORY: Trauma and pain 3 views of the right elbow Bone mineralization, joint spaces and alignment are maintained no joint effusion. IMPRESSION: No fracture or dislocation.
--- NOTE | 2019-02-04 15:21 | XR ---
Right shoulder HISTORY: Trauma and pain 3 views of the right shoulder, correlation to prior exam 14/08/2014 Bone mineralization, joint spaces and alignment are maintained. IMPRESSION: No fracture or dislocation.
== END | disposition home or self-care (01) ==
LOC: RADXRMAIN 13:03
PROVIDERS: ATTEND Family Medicine
DX: S40.011A Contusion of right shoulder, initial encounter (principal); M25.521 Pain in right elbow

== ENCOUNTER → 2019-02-20 | Outpatient (CLI) | payer OTHER ==
[2019-02-20 11:06] VITALS: BP 108/75; PULSE 83; RESP 16
--- NOTE | 2019-02-20 12:51 | P.PAINPG ---
Subjective Progress Note Date: 02/20/19 is a 49-year-old female who returns for follow-up after 2 SI joint injections. To briefly review she has a history of chronic low back pain she has gone through 3 epidurals and lumbar medial branch blocks without significant benefit. Today however she reports excellent pain relief from her to right SI joint injections nearly 100% relief. Otherwise she is also out of lidocaine cream 2% which would like a refill. She is continue to try to lose weight. Otherwise she does not report any other changes in her medical history. She would like to pursue SI joint RFA, to reduce the amount of total steroid she gets in the setting of being a type II diabetic. Objective - Vital Signs Vital signs: Vital Signs Temp Pulse 83 02/20/19 10:59 Resp 16 02/20/19 10:59 BP 108/75 02/20/19 10:59 Pulse Ox Intake & Output 02/19/19 02/20/19 02/20/19 18:59 06:59 18:59 Weight 81.647 kg - Exam Vital Signs: Reviewed in EMR GENERAL: Well appearing, in no acute distress, truncal obesity PSYCH: Mood and affect is appropriate. Awake, alert, and oriented SKIN: Skin color, texture, turgor normal, no rashes or lesions HEENT: Normocephalic, atraumatic. EOM intact CV: No pedal edema RESP: Respirations are unlabored, no audible wheezing GI: Abdomen non-distended MUSCULOSKELETAL: Bilateral upper and lower extremity strength is normal and symmetric. No atrophy or tone abnormalities are noted. Buttocks: Positive to pain to palpation over the right PSIS, [place] test is positive on the right, [place]'s positive, SI joint compression is positive Extremities: Peripheral joint ROM is full and pain free without obvious instability or laxity in all four extremities. No edema or skin discolorations noted. Gait: Gait is anantalgic NEUR: Bilateral upper and lower extremity coordination and muscle stretch reflexes are physiologic and symmetric. No loss of sensation is noted. Cranial nerves are grossly intact. Assessment and Plan Assessment: Assessment: 1. SI joint dysfunction, right 2. Lumbar spondylosis 3. Obesity 4. Diabetes Plan: 1. Explanation: Steroid injections versus RFA were explained to the patient. Explained to her that the RFA with likely last longer, however if it did not last long and we can revisit and steroid injection. 2. Opioid agreement: None 3. Counseling: The patient was counseled extensively on BODY MASS INDEX, EXERCISE. Specifically, the patient was instructed regarding the importance of weight control, and exercise in the context of both chronic pain and overall health. 4. Procedures: Right sacral RFA 5. Consultations: None 6. Investigations: And I reviewed 7. Medications: Refilled her lidocaine gel 2% 8. Disposition: Sacral RFA on the right. , PQRS Measure Charge Sheet Measure #226: Tobacco Use: Screen & Cessation Intervention: Pt not a tobacco user Measure #111: Pneumonia Vaccination: Pneumococcal vaccine administered or previously received Measure #47: Advance Care Plan: Advance care planning discussed & documented, pt chose/unable to give Measure #131: Pain Assessment & Follow-up: Pain positive & plan documented, Follow-up scheduled Measure #431: Unhealthy Alcohol Use Preventative Care & Scrn: Patient not identified as an unhealthy alcohol user PQRS Narrative: Smoking Status Former smoker Blood Pressure 108/75 Pain Intensity [Bilateral 4 Buttock] Scale Used Numeric (1 - 10) Hx Alcohol Use (MH) No Home Medications: Ambulatory Orders Docusate Sodium [Dulcolax Stool Softener] 100 mg PO HS 03/03/14 Citalopram Hydrobromide [CeleXA] 20 mg PO QAM 04/03/14 Omeprazole [PriLOSEC] 20 mg PO BID 04/03/14 Albuterol Inhaler [Ventolin Hfa Inhaler] 2 puff INHALATION QID PRN 11/23/14 Azelastine HCl [Optivar 0.05% Ophth Soln] 1 drop BOTH EYES DAILY 06/12/16 Fenofibrate 160 mg PO HS 06/12/16 Ibuprofen [Motrin] 800 mg PO TID 06/12/16 OXcarbazepine [Oxtellar Xr] 900 mg PO QAM 06/12/16 Oxybutynin Chloride [Ditropan] 5 mg PO BID 06/12/16 Prochlorperazine [Compazine] 10 mg PO BID 06/12/16 Verapamil HCl [Verapamil ER] 120 mg PO QAM 06/12/16 Cetirizine HCl 10 mg PO DAILY 05/01/17 Losartan [Cozaar] 50 mg PO QAM 03/05/18 Fluticasone Nasal [place] [Flonase Nasal [place]] 1 spray EA NOSTRIL DAILY 06/07/18 Gabapentin 600 mg PO TID 06/07/18 metFORMIN HCL [metFORMIN HCL ER] 500 mg PO BID 06/07/18 Albuterol Nebulized (Conc) [Ventolin Nebulized (Conc)] 2.5 mg INHALATION DAILY PRN 07/24/18 Butalb/APAP/Caff 50-325-40Mg [Fioricet 50-325-40] 1 tab PO Q8H PRN 09/19/18 Famotidine [Pepcid] 40 mg PO DAILY 09/19/18 HYDROcodone/APAP 10-325MG [[place] 10-325] 1 tab PO TID 09/19/18 tiZANidine [Zanaflex] 4 mg PO BID 01/21/19 Lidocaine 2% Gel [Xylocaine Jelly 2%] 1 applic TOPICAL BID 02/20/19 Controlled Substance Measures - Controlled Substance Measures Is patient prescribed a controlled substance at discharge?: No
== END | disposition home or self-care (01) ==
LOC: PNWHC3 10:47
PROVIDERS: ATTEND Student in an Organized Health Care Education/Training Program
DX: G89.29 Other chronic pain (principal); M53.3 Sacrococcygeal disorders, not elsewhere classified; M47.816 Spondylosis without myelopathy or radiculopathy, lumbar region; E66.9 Obesity, unspecified; E11.9 Type 2 diabetes mellitus without complications; Z87.891 Personal history of nicotine dependence; Z79.891 Long term (current) use of opiate analgesic; Z98.890 Other specified postprocedural states; Z79.1 Long term (current) use of non-steroidal anti-inflammatories (NSAID); Z79.84 Long term (current) use of oral hypoglycemic drugs; Z79.899 Other long term (current) drug therapy
CPT/HCPCS: 99211

== ENCOUNTER 2019-03-04 08:29 | Day surgery (SDC) | payer OTHER ==
[2019-02-27 11:13] VITALS: BMI 34.0
[2019-03-04 08:44] VITALS: TEMP 97.6
[2019-03-04 08:55] LABS: Glucose,Whole Blood 98 mg/dL (75-99)
[2019-03-04] MEDS: LACTATED RINGERS 1,000 ML IV SCH ×2 (08:55→08:56)
--- NOTE | 2019-03-04 09:34 | P.PCN ---
Date of Procedure: 03/04/19 Description of Procedure: PREOPERATIVE DIAGNOSIS: 1. Lumbosacral Spondylosis 2. Bilateral sacroiliitis. POSTOPERATIVE DIAGNOSIS: 1-Lumbosacral spondylosis 2-Bilateral sacroiliitis. PROCEDURES: 1. Right radiofrequency thermocoagulation/ablation of the L5 dorsal ramus. 2. Right multi-site radiofrequency thermocoagulation/ablation of the S1, S2, and S3 lateral branchs. The procedure was performed using fluoroscopic guidance during needle placement to assure proper position and maximize safety. PROVIDER: Chuck Foster M.D. ANESTHESIA: Local Anesthesia, conscious sedation with Versed 2mg, Fentanyl 100 mcgs EBL: NONE INDICATION/MEDICAL NECESSITY: History of low back pain secondary Right Lumbosacral Spondylosis and lumbosacral arthropathy unresponsive to more conservative treatments. The patient reported more than 50% relief of pain symptoms following 2 previous diagnostic blocks with Bupivacaine. PROCEDURE DESCRIPTION: The patient was seen and identified in the preoperative area. Risks, benefits, complications, and alternatives were discussed with the patient. The patient agreed to proceed with the procedure and signed the consent. Vital signs were checked before and after the procedure and they remained stable. Patient ambulated to the procedure room and time out was completed. The patient was placed in the prone position on the procedure table and a pillow was placed under the abdomen to reduce lumbar lordosis. The lumbosacral area was prepped and draped in the usual sterile fashion. Critical pause was taken. L5 Dorsal Ramus RF: Using right oblique fluoroscopy, the junction of the transverse process and the superior articular process of the right S1 vertebra, which correspond to the fluoroscopic image of the "eye of the [place] dog" was identified. Subsequently, a 10-cm 22-gauge radiofrequency cannula with a 10-mm active tip was advanced under fluoroscopic guidance until contact was made with periosteum. At this level, the Sensory testing of the L5 dorsal ramus was performed at 50 Hz and 0 to 1 volt with production of concordant pain starting at 0.5 volt. Motor stimulation was done at 2 Hz with stimulation of mulitifidus muscle contration at 1.5 volts. No radicular symptoms or paresthesias were produced during the testing. Subsequently, the L5 dorsal ramus was subjected to a radiofrequency ablation at a mode of 90 seconds at 80 degrees Celsius after negative motor and sensory testing and after injecting with a solution consisting of 0.5% ropivacaine with 40 mg of Depo-Medrol 0.5 ml injected in each cannula The needle was withdrawn intact the procedure was repeated on the left side using the same technique. S1, S3, and S3 Lateral Branch RF: The lateral margins of the Right S1, S2, and S3 foramina were identified using AP fluoroscopy. Under fluoroscopic guidance, three 10-cm 18-gauge radiofrequency cannula with a 10-mm active tip were inserted at 8-10 mm peripheral to the posterior S1 foramen, at various locations using clock-face coordinates. The center of the clock was registered at the lateral margin of the foramen. The 2:30, 4:00, and 5:30 oclock positions were used. At this level, the sensory testing of the S1 lateral branch was performed at 50 Hz and 0 to 1 volt at the three levels with production of concordant pain starting at 0.5 volt. Motor stimulation was done at 2 Hz. No radicular symptoms or paresthesias were produced during the testing. Subsequently, the S1 lateral branch was subjected to a radiofrequency ablation at a mode of 90 seconds at 80 degrees Celsius at the 3 levels after negative motor and sensory testing and after injecting a solution consisting of 0.5% ropivacaine with 40 mg of kenalog 0.5 ml injected in each cannula. The same procedure was performed at the level of the S2 foramen. For the S3 foramen, only the 2:30 and 4:00 oclock positions were used. Sensory and motor testing followed by radiofrequency ablation were performed as described for the S1 and S2 foramina. The same procedure was repeated on the left side using the following locations: The 9:30, 8:00, and 6:30 oclock positions were used for the S1 and S2 foramina and the 9:30 and 8:00 oclock positions were used for the S3 foramen. The needle was withdrawn intact after each injection. COMPLICATIONS: The patient tolerated the procedure well without any acute complications. DISPOSTION/PLAN: The patient ambulated to the recovery area after the procedure in a stable condition for observation. Patient was reexamined prior to discharge. Patient was observed for 30 minutes in the recovery area and was discharged home, accompanied by an adult, after meeting discharged criteria. Discharge instructions were give to the patient by the staff. Patient was specifically instructed not to drive today and to rest for the rest of the day. The patient will schedule a follow up visit in the clinic in 4 weeks.
[2019-03-04] MEDS ORDERED: IV FLUID CONTINUATION 1,000 ML IV ONE (09:40)
[2019-03-04 09:45] VITALS: RESP 16
[2019-03-04] MEDS ORDERED: KETOROLAC 30 MG/ML 1 ML VIAL IVP ONE (09:48)
[2019-03-04 10:01] VITALS: BP 109/73; PULSE 77
--- NOTE | 2019-03-04 10:49 | FL ---
Fluoroscopy HISTORY: Pain 9 seconds fluoroscopy time supplied to the referring clinician. 3 intraoperative C-arm images docume nt the procedure. See dictated report from anesthesia.
== END 2019-03-04 10:31 | disposition home or self-care (01) ==
LOC: ORPAIN 08:29
PROVIDERS: ATTEND Anesthesiology
DX: M46.1 Sacroiliitis, not elsewhere classified (principal); M47.9 Spondylosis, unspecified
CPT/HCPCS: 64640; 64635; J2250; J3301; J2001; J3010; J1885; 99152; 99153

== ENCOUNTER → 2019-04-01 | Outpatient (CLI) | payer OTHER ==
[2019-04-01 12:15] VITALS: BP 132/73; PULSE 97; RESP 16
--- NOTE | 2019-04-01 12:49 | P.PAINPG ---
Subjective Progress Note Date: 04/01/19 Is a 49-year-old female with diabetes and several steroid injections throughout the year, who presents to follow-up after right SI RFA. Unfortunately she states immediately after the RFA she started having pain in the lower buttock area, slightly lower than where her original pain was. Her original pain did get better, however this knee pain is very bothersome to her. The pain is worse with sitting, her pain is so intense that she recently did get a Toradol shot which did somewhat help. She states that she had poor sleep 2 weeks after the procedure. Of note she does not report any numbness or weakness anywhere. Thus she is here for follow-up for that pain. Objective - Vital Signs Vital signs: Vital Signs Temp Pulse 97 04/01/19 12:03 Resp 16 04/01/19 12:03 BP 132/73 04/01/19 12:03 Pulse Ox 97 04/01/19 12:03 Intake & Output 03/31/19 04/01/19 04/01/19 18:59 06:59 18:59 Weight 81.647 kg - Exam Vital Signs: Reviewed in EMR GENERAL: Well appearing, obese, in no acute distress, PSYCH: Mood and affect is appropriate. Awake, alert, and oriented SKIN: Skin color, texture, turgor normal, no rashes or lesions HEENT: Normocephalic, atraumatic. EOM intact CV: No pedal edema RESP: Respirations are unlabored, no audible wheezing GI: Abdomen non-distended MUSCULOSKELETAL: Bilateral upper and lower extremity strength is normal and sym metric. No atrophy or tone abnormalities are noted. Buttocks: She does not have any allodynia in right buttock area, however she does have pain to palpation around her right ischial tuberosity Extremities: Peripheral joint ROM is full and pain free without obvious instability or laxity in all four extremities. No edema or skin discolorations noted. Gait: Gait is anantalgic NEUR: Bilateral upper and lower extremity coordination and muscle stretch reflexes are physiologic and symmetric. Negative clonus. No loss of sensation is noted. Cranial nerves are grossly intact. Assessment and Plan Assessment: Assessment: 1. Right buttock pain after cervical RFA. Unclear diagnosis posterior RFA neuritis versus new ischial bursitis 2. Lumbar spondylosis 3. Diabetes 4. Multiple steroid injections in the past year 5. Obesity Plan: 1. Explanation: I explained to her that the cause of her pain was on 100% clear, however he also was posterior RFA neuritis that should get better with time. Her pain is also consistent with ischial bursitis, however given her multiple steroid injections, I would like to delay her receiving another steroid injection. I also offered an MRI, however I explained to her that I'm not sure whether this would show anything, after discussion with her we will defer on MRI on today's visit 2. Opioid agreement: None 3. Counseling: The patient was counseled extensively on BODY MASS INDEX, EXERCISE. Specifically, the patient was instructed regarding the importance of weight control, and exercise in the context of both chronic pain and overall health. 4. Procedures: At this time, can consider right ischial bursa injection in the future 5. Consultations: None 6. Investigations: MRI today, could consider next visit 7. Medications: She is receiving opiates from an outside provider 8. Disposition: In 4 weeks to see if her pain has improved , PQRS Measure Charge Sheet Measure #226: Tobacco Use: Screen & Cessation Intervention: Pt not a tobacco user Measure #111: Pneumonia Vaccination: Pneumococcal vaccine administered or previously received Measure #47: Advance Care Plan: Advance care planning discussed & documented, pt chose/unable to give Measure #131: Pain Assessment & Follow-up: Pain positive & plan documented, Follow-up scheduled Measure #431: Unhealthy Alcohol Use Preventative Care & Scrn: Patient not identified as an unhealthy alcohol user PQRS Narrative: Smoking Status Former smoker Blood Pressure 132/73 Pain Intensity [Right Lower 7 Buttock] Scale Used Numeric (1 - 10) Hx Alcohol Use (MH) No Home Medications: Ambulatory Orders Docusate Sodium [Dulcolax Stool Softener] 100 mg PO HS 03/03/14 Citalopram Hydrobromide [CeleXA] 20 mg PO QAM 04/03/14 Omeprazole [PriLOSEC] 20 mg PO BID 04/03/14 Albuterol Inhaler [Ventolin Hfa Inhaler] 2 puff INHALATION QID PRN 11/23/14 Azelastine HCl [Optivar 0.05% Ophth Soln] 1 drop BOTH EYES DAILY 06/12/16 Fenofibrate 160 mg PO HS 06/12/16 OXcarbazepine [Oxtellar Xr] 900 mg PO QAM 06/12/16 Oxybutynin Chloride [Ditropan] 5 mg PO BID 06/12/16 Prochlorperazine [Compazine] 10 mg PO BID 06/12/16 Verapamil HCl [Verapamil ER] 120 mg PO QAM 06/12/16 Cetirizine HCl 10 mg PO DAILY 05/01/17 Losartan [Cozaar] 50 mg PO QAM 03/05/18 Gabapentin 600 mg PO TID 06/07/18 metFORMIN HCL [metFORMIN HCL ER] 500 mg PO BID 06/07/18 Albuterol Nebulized (Conc) [Ventolin Nebulized (Conc)] 2.5 mg INHALATION DAILY PRN 07/24/18 Famotidine [Pepcid] 40 mg PO DAILY 09/19/18 HYDROcodone/APAP 10-325MG [[place] 10-325] 1 tab PO TID 09/19/18 tiZANidine [Zanaflex] 4 mg PO BID 01/21/19 Lidocaine 2% Gel [Xylocaine Jelly 2%] 1 applic TOPICAL BID 02/20/19 Controlled Substance Measures - Controlled Substance Measures Is patient prescribed a controlled substance at discharge?: No
== END | disposition home or self-care (01) ==
LOC: PNWHC3 11:44
PROVIDERS: ATTEND Student in an Organized Health Care Education/Training Program
DX: M47.816 Spondylosis without myelopathy or radiculopathy, lumbar region (principal); M54.89 Other dorsalgia; E11.9 Type 2 diabetes mellitus without complications; E66.9 Obesity, unspecified; Z68.34 Body mass index [BMI] 34.0-34.9, adult; Z87.891 Personal history of nicotine dependence; Z79.899 Other long term (current) drug therapy; Z79.84 Long term (current) use of oral hypoglycemic drugs; Z79.891 Long term (current) use of opiate analgesic
CPT/HCPCS: 99211

== ENCOUNTER 2019-04-07 09:48 | Observation (INO) | payer OTHER ==
[2019-04-07] MEDS ORDERED: ASPIRIN 81 MG PO STA (10:04)
[2019-04-07 10:44] LABS: ALT 33 U/L (9-52); AST 26 U/L (14-36); African American GFR (CKD) >90 (>60 ml/min/1.73 sqM); Albumin 4.7 g/dL (3.5-5.0); Alkaline Phosphatase 36 U/L (38-126); Anion Gap 9 mmol/L; Blood Urea Nitrogen 11 mg/dL (7-17); Calcium 9.8 mg/dL (8.4-10.2); Carbon Dioxide 29 mmol/L (22-30); Chloride 103 mmol/L (98-107); Glucose 85 mg/dL (74-99); Magnesium 1.7 mg/dL (1.6-2.3); Potassium 4.3 mmol/L (3.5-5.1); Sodium 141 mmol/L (137-145); Total Bilirubin 0.4 mg/dL (0.2-1.3); Total Protein 8.3 g/dL (6.3-8.2)
[2019-04-07 10:46] LABS: Basophils # (A) 0.1 k/uL (0-0.2); Basophils % (A) 1 %; Eosinophils # (A) 0.1 k/uL (0-0.7); Eosinophils % (A) 2 %; HCT 40.1 % (34.0-46.0); HGB 13.8 gm/dL (11.4-16.0); Lymphocytes # (A) 1.5 k/uL (1.0-4.8); Lymphocytes % (A) 28 %; MCH 31.8 pg (25.0-35.0); MCHC 34.4 g/dL (31.0-37.0); MCV 92.6 fL (80.0-100.0); Mean Platelet Volume 5.9; Monocytes # (A) 0.3 k/uL (0-1.0); Monocytes % (A) 6 %; Neutrophils # (A) 3.3 k/uL (1.3-7.7); Neutrophils % (A) 60 %; Platelet Count 316 k/uL (150-450); RBC 4.33 m/uL (3.80-5.40); RDW 12.7 % (11.5-15.5); WBC 5.4 k/uL (3.8-10.6)
--- NOTE | 2019-04-07 10:50 | ED ---
Chest Pain HPI - General Source: patient, RN notes reviewed Mode of arrival: wheelchair Limitations: no limitations <Kiko Jimenez - Last Filed: 04/07/19 12:02> <Shanna Leal - Last Filed: 04/12/19 20:00> - General Chief Complaint: Chest Pain Stated Complaint: CHEST PRESSURE, FACIAL NUMBNESS Time Seen by Provider: 04/07/19 10:03 - History of Present Illness Initial Comments: This a 49-year-old female presents emergency Department chief complaint of chest pain. Patient states pain started yesterday and dissipated throughout the day but returned this morning. She states it feels like something sitting on her chest. Patient does admit that she does have a history of asthma, hypertension and diabetes along with epilepsy. Patient states that yesterday she had this chest pain associated with facial numbness and she states it was diffuse. She states that her face felt numb that it was hard to talk. She states all her symptoms resolved. She had no difficulty ambulating no weakness of her extremities. Patient states that she call her PCP today who recommended come emergency department. She has no current complaints of headache she did have a headache yesterday. Patient has no back pain, abdominal discomfort, nausea vomiting. She does feel sweaty, fatigued. (Kiko Jimenez) - Related Data Home Medications Medication Instructions Recorded Confirmed Docusate Sodium [Dulcolax Stool 100 mg PO HS PRN 03/03/14 04/07/19 Softener] Omeprazole [PriLOSEC] 20 mg PO BID 04/03/14 04/07/19 Albuterol Inhaler [Ventolin Hfa 2 puff INHALATION RT-QID PRN 11/23/14 04/07/19 Inhaler] Azelastine HCl [Optivar 0.05% 1 drop BOTH EYES DAILY 06/12/16 04/07/19 Ophth Soln] Fenofibrate 160 mg PO HS 06/12/16 04/07/19 OXcarbazepine [Oxtellar Xr] 900 mg PO QAM 06/12/16 04/07/19 Prochlorperazine [Compazine] 10 mg PO BID 06/12/16 04/07/19 Verapamil HCl [Verapamil ER] 120 mg PO QAM 06/12/16 04/07/19 Cetirizine HCl 10 mg PO DAILY 05/01/17 04/07/19 Gabapentin 600 mg PO TID 06/07/18 04/07/19 metFORMIN HCL [metFORMIN HCL ER] 500 mg PO BID 06/07/18 04/07/19 Famotidine [Pepcid] 40 mg PO DAILY 09/19/18 04/07/19 HYDROcodone/APAP 10-325MG [[place] 1 tab PO TID 09/19/18 04/07/19 10-325] Lidocaine 2% Gel [Xylocaine Jelly 1 applic TOPICAL BID 02/20/19 04/07/19 2%] Albuterol Nebulized [Ventolin 2.5 mg INHALATION RT-QID PRN 04/07/19 04/07/19 Nebulized] Butalb/APAP/Caff 50-325-40Mg 1 tab PO Q8H PRN 04/07/19 04/07/19 [Fioricet 50-325-40] Chlorhexidine Gluconate [Peridex] 15 ml PO BID 04/07/19 04/07/19 Citalopram Hydrobromide [CeleXA] 20 mg PO DAILY 04/07/19 04/07/19 Meloxicam [Mobic] 15 mg PO DAILY PRN 04/07/19 04/07/19 Oxybutynin ER [Ditropan Xl] 15 mg PO DAILY 04/07/19 04/07/19 clonazePAM [KlonoPIN] 2 mg PO DAILY 04/07/19 04/07/19 Previous Rx's Medication Instructions Recorded Aspirin EC [Ecotrin Low Dose] 81 mg PO DAILY #1 tablet. 04/09/19 Cephalexin [Keflex] 500 mg PO Q8HR #21 cap 04/09/19 Cyclobenzaprine [Flexeril] 5 mg PO BID PRN #10 tab 04/09/19 Lactobacillus Acidophilus 1 each PO BID #15 tablet 04/09/19 [Acidophilus] Allergies Allergy/AdvReac Type Severity Reaction Status Date / Time azithromycin Allergy Swelling Verified 04/07/19 10:18 [From Zithromax Z-Brayden] ondansetron HCl Allergy Vomiting Verified 04/07/19 10:18 [From Zofran (as hydrochloride)] onion Allergy Swelling Verified 04/08/19 10:55 Review of Systems ROS Other: All systems not noted in ROS Statement are negative. <Kiko Jimenez - Last Filed: 04/07/19 12:02> ROS Other: All systems not noted in ROS Statement are negative. <Shanna Leal Soham - Last Filed: 04/12/19 20:00> ROS Statement: Those systems with pertinent positive or pertinent negative responses have been documented in the HPI. EKG Findings - EKG Comments: EKG Findings:: EKG performed at 10:08 normal sinus rhythm rate of 85 VT 144 QRS 72 QT/QTC 366/[address] elevation or depression noted. - EKG Results: EKG: interpreted by ERMD <Kiko Jimenez - Last Filed: 04/07/19 12:02> Past Medical History Past Medical History: Asthma, Diabetes Mellitus, GERD/Reflux, Hyperlipidemia, Hypertension, Osteoarthritis (OA), Seizure Disorder, Sleep Apnea/CPAP/BIPAP Additional Past Medical History / Comment(s): Migraines. HX kidney stones. LAST SEIZURE 06/2018. BONE SPURS RT SIDE NECK. hx shattered tailbone. Episodes of 'black outs" -cause unknown, NARCOLEPSY. Loss of memory from grand mal seizure in 2017, hx diverticulitis and colitis. no cpap used, constipation, overactive bladder History of Any Multi-Drug Resistant Organisms: None Reported Past Surgical History: Appendectomy, Bowel Resection, Cholecystectomy, Heart Catheterization, Hysterectomy, Orthopedic Surgery, Tubal Ligation, Uterine Ablation Additional Past Surgical History / Comment(s): CYST REMOVED FROM RIGHT WRIST x 2, pain clinic procedures. medtronic loop recorder/later removed, [place] shoulder rotator cuff, Past Anesthesia/Blood Transfusion Reactions: Motion Sickness Type of Cardiac Device: Loop Device Placement Date:: MAR 2009 AND 2013 Past Psychological History: Anxiety Smoking Status: Former smoker Past Alcohol Use History: None Reported Past Drug Use History: None Reported - Past Family History Mother Family Medical History: No Reported History Father Family Medical History: Cancer <Kiko Jimenez - Last Filed: 04/07/19 12:02> General Exam Limitations: no limitations General appearance: alert, in no apparent distress Head exam: Present: atraumatic, normocephalic, normal inspection Eye exam: Present: normal appearance, PERRL, EOMI. Absent: scleral icterus, conjunctival injection, periorbital swelling ENT exam: Present: normal exam, normal oropharynx, mucous membranes moist Neck exam: Present: normal inspection, full ROM. Absent: tenderness, meningismus, lymphadenopathy Respiratory exam: Present: normal lung sounds bilaterally. Absent: respiratory distress, wheezes, rales, rhonchi, stridor Cardiovascular Exam: Present: regular rate, normal rhythm, normal heart sounds. Absent: systolic murmur, diastolic murmur, rubs, gallop, clicks GI/Abdominal exam: Present: soft, normal bowel sounds. Absent: distended, tenderness, guarding, rebound, rigid Neurological exam: Present: alert, oriented X3, CN II-XII intact, reflexes normal, other (Finger to nose intact bilaterally). Absent: motor sensory deficit Skin exam: Present: warm, dry, intact, normal color. Absent: rash <Kiko Jimenez - Last Filed: 04/07/19 12:02> Course Vital Signs 04/07/19 04/07/19 04/07/19 09:52 10:07 10:30 Temperature 98.1 F Pulse Rate 98 80 Respiratory 18 18 18 Rate Blood Pressure 141/91 141/109 O2 Sat by Pulse 98 98 99 Oximetry 04/07/19 04/07/19 04/07/19 11:00 11:30 12:00 Temperature Pulse Rate 77 63 87 Respiratory 18 18 18 Rate Blood Pressure 132/94 123/91 140/90 O2 Sat by Pulse 100 98 100 Oximetry 04/07/19 04/07/19 12:30 13:00 Temperature Pulse Rate 76 75 Respiratory 14 12 Rate Blood Pressure 150/91 153/92 O2 Sat by Pulse 100 100 Oximetry Chest Pain MDM <Kiko Jimenez - Last Filed: 04/07/19 12:02> <Shanna Leal - Last Filed: 04/12/19 20:00> - [facility] Patient's workup including labs, x-ray EKG, CT of brain. This is unremarkable at this time though she has multiple risk factors for cardiac disease. Patient will be admitted for chest pain workup including repeat troponins, patient will be placed on heparin, cardiology evaluation. (Kiko Jimenez) I was available for consultation in the emergency department. The history and physical exam were done by the midlevel provider. I was consulted for this patients care. I reviewed the case with the midlevel provider and based on their presentation of the patient, I agree with the assessment, medical decision making and plan of care as documented. I discussed the case with the admitting physician who accepted the admission. Chart was dictated using [employer] dictation software. Attempts were made to correct any dictation errors however some typographical errors may persist. (Shanna Leal) Disposition <Kiko Jimenez - Last Filed: 04/07/19 12:02> <Shanna Leal - Last Filed: 04/12/19 20:00> Clinical Impression: Chest pain Disposition: ADMITTED IP TO THIS HOSP Condition: Fair
[2019-04-07 10:52] LABS: D-Dimer 0.25 mg/L FEU (<0.60); Prothrombin Time 10.8 sec (9.0-12.0)
--- NOTE | 2019-04-07 10:57 | CT ---
EXAMINATION TYPE: CT brain wo con DATE OF EXAM: 04/07/2019 COMPARISON: 08/04/2016 HISTORY: bilateral facial numbness CT DLP: 1040.4 mGycm. Automated Exposure Control for Dose Reduction was Utilized. TECHNIQUE: CT scan of the head is performed without contrast. FINDINGS: There is no acute intracranial hemorrhage or midline shift identified. There is diffuse v entricular and sulcal prominence consistent with diffuse age-related cerebral atrophy. The globes a re intact and the visualized sinuses are clear. IMPRESSION: No acute intracranial hemorrhage or midline shift. There is diffuse age-related cerebra l atrophy.
--- NOTE | 2019-04-07 11:00 | XR ---
EXAMINATION TYPE: XR chest 2V DATE OF EXAM: 04/07/2019 COMPARISON: 03/05/2018 TECHNIQUE: PA and lateral views submitted. HISTORY: Chest pain FINDINGS: The lungs are clear and there is no pneumothorax, pleural effusion, or focal pneumonia. Hypertrophi c and degenerative change of the spine. Surgical clips in the abdomen. No overt failure. IMPRESSION: 1. No acute process.
[2019-04-07] MEDS ORDERED: NITROGLYCERIN SL TABS 0.4 MG TAB SUBLINGUAL PRN (12:03)
[2019-04-07] MEDS ORDERED: HEPARIN SODIUM,PORCINE 5,000 UNIT/ML 1 ML VIAL IV ONE (12:03)
[2019-04-07] MEDS ORDERED: HEPARIN SOD,PORK IN 0.45% NACL 25,000 UNIT in 0.45% NACL 1 250ML.BAG IV SCH (12:15)
[2019-04-07] MEDS ORDERED: HYDROcodone/APAP 10-325MG 1 EACH TAB PO ONE (13:16)
[2019-04-07] MEDS ORDERED: IPRATROPIUM-ALBUTEROL 3 ML NEB INHALATION PRN (14:36)
[2019-04-07] MEDS ORDERED: MELOXICAM 7.5 MG TAB PO PRN (14:37)
[2019-04-07] MEDS ORDERED: DOCUSATE 100 MG CAP PO PRN (14:37)
[2019-04-07] MEDS ORDERED: BUTALB/APAP/CAFF 50-325-40MG TAB PO PRN (14:37)
[2019-04-07 15:12] LABS: Cholesterol 145 mg/dL (<200); HDL Cholesterol 48 mg/dL (40-60); LDL Cholesterol,Calculated 71 mg/dL (0-99); Triglycerides 128 mg/dL (<150)
[2019-04-07] MEDS: IPRATROPIUM-ALBUTEROL 3 ML NEB INHALATION SCH ×2 (16:08→20:10)
[2019-04-07] MEDS: KETOTIFEN 0.025% OPHTH DROPS 5 ML BTL BOTH EYES SCH (16:15)
[2019-04-07] MEDS: GABAPENTIN 300 MG CAP PO SCH ×2 (16:31→20:15)
[2019-04-07 16:56] LABS: Glucose,Whole Blood 117 mg/dL (75-99)
[2019-04-07] MEDS: INSULIN ASPART (NovoLOG) 100 UNIT/ML VIAL SQ SCH ×2 (16:56→19:41)
[2019-04-07] MEDS: HYDROcodone/APAP 10-325MG 1 EACH TAB PO SCH ×2 (17:11→20:15)
[2019-04-07] MEDS: metFORMIN 500 MG TAB PO SCH (17:36)
[2019-04-07] MEDS ORDERED: HEPARIN SODIUM,PORCINE 5,000 UNIT/ML 1 ML VIAL IV PRN (18:24)
[2019-04-07] MEDS ORDERED: CYCLOBENZAPRINE 5 MG TAB PO PRN (19:00)
[2019-04-07 19:33] VITALS: RESP 18
[2019-04-07 19:42] LABS: Glucose,Whole Blood 96 mg/dL (75-99)
[2019-04-07] MEDS: PANTOPRAZOLE 40 MG TABLET PO SCH (20:15)
[2019-04-07] MEDS: CHLORHEXIDINE GLUCONATE 15 ML CUP MUCOUS MEM SCH (20:15)
[2019-04-07] MEDS: FENOFIBRATE 160 MG TAB PO SCH (20:15)
[2019-04-07] MEDS: LIDOCAINE 2% GEL 30 ML TUBE TOPICAL SCH (20:15)
[2019-04-07] MEDS: PROCHLORPERAZINE 10 MG TAB PO SCH (20:15)
[2019-04-08 05:46] LABS: Amphetamine Screen,Urine Not Detected (NotDetected); Barbiturate Screen,Urine Not Detected (NotDetected); Benzodiazepines Screen,Urine Detected (NotDetected); Cocaine Screen,Urine Not Detected (NotDetected); Methadone Screen, Urine Not Detected (NotDetected); Opiate Screen,Urine Detected (NotDetected); Oxycodone Screen, Urine Not Detected (NotDetected); Phencyclidine Screen,Urine Not Detected (NotDetected); Tricyclic Antidepressant,Urine Not Detected (NotDetected); Urn Cannabinoid Scrn Not Detected (NotDetected)
[2019-04-08 06:41] LABS: Glucose,Whole Blood 89 mg/dL (75-99)
[2019-04-08 06:55] LABS: Basophils # (A) 0.1 k/uL (0-0.2); Basophils % (A) 2 %; Eosinophils # (A) 0.2 k/uL (0-0.7); Eosinophils % (A) 4 %; HCT 38.6 % (34.0-46.0); HGB 12.2 gm/dL (11.4-16.0); Lymphocytes # (A) 2.3 k/uL (1.0-4.8); Lymphocytes % (A) 46 %; MCH 30.6 pg (25.0-35.0); MCHC 31.7 g/dL (31.0-37.0); MCV 96.4 fL (80.0-100.0); Mean Platelet Volume 6.7; Monocytes # (A) 0.3 k/uL (0-1.0); Monocytes % (A) 7 %; Neutrophils % (A) 40 %; Platelet Count 273 k/uL (150-450); RBC 4.01 m/uL (3.80-5.40); WBC 4.9 k/uL (3.8-10.6)
[2019-04-08 07:16] LABS: Calcium 9.2 mg/dL (8.4-10.2); Potassium 4.2 mmol/L (3.5-5.1)
[2019-04-08] MEDS: INSULIN ASPART (NovoLOG) 100 UNIT/ML VIAL SQ SCH ×4 (07:26→20:11)
[2019-04-08] MEDS: IPRATROPIUM-ALBUTEROL 3 ML NEB INHALATION SCH ×4 (07:54→21:18)
[2019-04-08] MEDS ORDERED: ASPIRIN 325 MG TAB PO SCH (09:00)
[2019-04-08] MEDS ORDERED: PHENTERMINE HCL 37.5 MG PO SCH (09:00)
[2019-04-08] MEDS ORDERED: LOSARTAN 50 MG TAB PO SCH (09:00)
--- NOTE | 2019-04-08 10:37 | P.CRDCN ---
History of Present Illness History of present illness: This is a pleasant 49-year-old female past medical history significant for diabetes mellitus, asthma, hypertension, dyslipidemia, seizure disorder, sleep apnea and former nicotine dependence. She denies prior history of coronary artery disease and does not follow with a physician office specialist regularly. In the past she had seen Dr. Austin about 5-10 years ago and had a loop recorder implanted secondary to seizure disorder which has since been removed. We have been asked to see her in consultation secondary to chest discomfort. She states she went to sleep on Sunday night feeling like her normal self with no symptoms of discomfort however she woke up Sunday morning and states her entire face was tingly with a left sided facial droop noted most prominently with her lips and a heavy pressure sensation in her chest. She states the heavy pressure on the chest has subsided when she got up and started moving around for her day. She states throughout the day she is just felt generally unwell however had no recurrence of chest discomfort. She went to sleep on Sunday and woke up Sunday again with a tingling sensation in her face and heaviness on her chest. The heaviness did not radiate to the arm, back, neck or jaw. This was not associated with shortness of breath, dizziness, nausea, vomiting, palpitations or diaphoresis. She is seen and examined resting comfortably laying flat in bed in no acute distress. She denies any further chest discomfort. Additionally she does have a tooth infection and is currently being treated with amoxicillin. EKG reveals sinus mechanism with no acute ST or T wave abnormalities noted. Chest x-ray is negative for an acute cardiopulmonary process. CT of the brain is negative for acute intracranial process with evidence of c erebral atrophy. Laboratory data reviewed, cardiac enzymes negative 3, CBC unremarkable, sodium 141, potassium 4.2, creatinine 0.93, LDL 55, proBNP 50. Current daily cardiac medications include losartan 50 mg daily, verapamil 120 mg daily and fenofibrate. Patient states she has been out of losartan and has not been taking it for the previous few months. She states she takes verapamil secondary to migraine headaches. At the time of my exam: CONSTITUTIONAL: Denies fever. Denies chills. EYES: Denies blurred vision. Denies vision changes. Denies eye pain. EARS, NOSE, MOUTH & THROAT: Denies headache. Denies sore throat. Denies ear pain. CARDIOVASCULAR: Denies chest pain. Denies shortness of breath. Denies orthopnea. Denies PND. Denies palpitations. RESPIRATORY: Denies cough. GASTROINTESTINAL: Denies abdominal pain. Denies diarrhea. Denies constipation. Denies nausea. Denies vomiting. MUSCULOSKELETAL: Denies myalgias. INTEGUMENTARY: Denies pruitis. Denies rash. NEUROLOGIC: Denies numbness. Denies tingling. Denies weakness. PSYCHIATRIC: Denies anxiety. Denies depression. ENDOCRINE: Denies fatigue. Denies weight change. Denies polydipsia. Denies polyurina. GENITOURINARY: Denies burning, hematuria or urgency with micturation. HEMATOLOGIC: Denies history of anemia. Denies bleeding. Blood pressure 91/59 heart rate 69 afebrile maintaining oxygen saturation on nasal cannula GENERAL: This is a 49-year-old female in no apparent distress at the time of my examination. HEENT: Head is atraumatic, normocephalic. Pupils are equal, round. Sclerae anicteric. Conjunctivae are clear. Mucous membranes of the mouth are moist. Neck is supple. There is no jugular venous distention. No carotid bruit is heard. LUNGS: Clear to auscultation no wheezes, rales or rhonchi. No chest wall tenderness is noted on palpation or with deep breathing. HEART: Regular rate and rhythm without murmurs, rubs or gallops. S1 and S2 heard. ABDOMEN: Soft, nontender. Bowel sounds are heard. No organomegaly noted. EXTREMITIES: No evidence of peripheral edema and no calf tenderness noted. VASCULAR: Radial and dorsalis pedis pulses palpated, no evidence of clubbing. NEUROLOGIC: Patient is awake, alert and oriented x3. ASSESSMENT Chest pain, atypical. An acute coronary event has been ruled out. Facial numbness and tingling with facial droop, resolved Hypertension Dyslipidemia Diabetes mellitus History of seizure disorder Former nicotine dependence Obesity, BMI 34 PLAN An acute coronary event has been ruled out. Discontinue heparin infusion. Recommend neurology evaluation. Echocardiogram has been obtained and will be reviewed. She would benefit from outpatient stress testing secondary to risk factors however would do this when her neurological symptoms resolve. Thank you kindly for this consultation. Nurse Practitioner note has been reviewed, I agree with a documented findings and plan of care. Patient was seen and examined. Past Medical History Past Medical History: Asthma, Diabetes Mellitus, GERD/Reflux, Hyperlipidemia, Hypertension, Osteoarthritis (OA), Seizure Disorder, Sleep Apnea/CPAP/BIPAP Additional Past Medical History / Comment(s): Current R elbow fracture and L wrist fracture with casts removed d/t clausterphobia/now wears splints, NIDDM type II, chronic low back pain with occasional bilateral sciatica, shattered tailbone, chronic cervical pain/spurs on r side of neck, 2017 grand mal seizure with comprehension issues/loss of memory ever since, "black outs" with no known cause, TILA with no device, diverticulitis/colitis with bowel resection, constipation, overactive bladder, kidney stones. History of Any Multi-Drug Resistant Organisms: None Reported Past Surgical History: Appendectomy, Bowel Resection, Cholecystectomy, Heart Catheterization, Hysterectomy, Orthopedic Surgery, Tubal Ligation, Uterine Ablation Additional Past Surgical History / Comment(s): Bowel resection for colitis/diverticulitis, EGDs, colonoscopies, loop recorder now removed, multiple pain clinic procedures, bilateral rotator cuff surgery, R hand ganglion cyst removed 3 times, tilt table test, MRI with anesthesia d/t clausterphobia. Past Anesthesia/Blood Transfusion Reactions: No Reported Reaction Type of Cardiac Device: Loop Device Placement Date:: MAR 2009 AND 2013 Smoking Status: Former smoker - Past Family History Mother Family Medical History: Cancer, Diabetes Mellitus Additional Family Medical History / Comment(s): Uterine cancer. Mother is living. Father Family Medical History: Cancer, Diabetes Mellitus, Hyperlipidemia, Hypertension, Renal Disease Additional Family Medical History / Comment(s): L lung cancer found post mortem. from renal failure. Medications and Allergies Home Medications Medication Instructions Recorded Confirmed Type Docusate Sodium [Dulcolax Stool 100 mg PO HS PRN 03/03/14 04/07/19 History Softener] Omeprazole [PriLOSEC] 20 mg PO BID 04/03/14 04/07/19 History Albuterol Inhaler [Ventolin Hfa 2 puff INHALATION RT-QID PRN 11/23/14 04/07/19 History Inhaler] Azelastine HCl [Optivar 0.05% 1 drop BOTH EYES DAILY 06/12/16 04/07/19 History Ophth Soln] Fenofibrate 160 mg PO HS 06/12/16 04/07/19 History OXcarbazepine [Oxtellar Xr] 900 mg PO QAM 06/12/16 04/07/19 History Prochlorperazine [Compazine] 10 mg PO BID 06/12/16 04/07/19 History Verapamil HCl [Verapamil ER] 120 mg PO QAM 06/12/16 04/07/19 History Cetirizine HCl 10 mg PO DAILY 05/01/17 04/07/19 History Losartan [Cozaar] 50 mg PO QAM 03/05/18 04/07/19 History Gabapentin 600 mg PO TID 06/07/18 04/07/19 History metFORMIN HCL [metFORMIN HCL ER] 500 mg PO BID 06/07/18 04/07/19 History Famotidine [Pepcid] 40 mg PO DAILY 09/19/18 04/07/19 History HYDROcodone/APAP 10-325MG [[place] 1 tab PO TID 09/19/18 04/07/19 History 10-325] Lidocaine 2% Gel [Xylocaine Jelly 1 applic TOPICAL BID 02/20/19 04/07/19 History 2%] Albuterol Nebulized [Ventolin 2.5 mg INHALATION RT-QID PRN 04/07/19 04/07/19 History Nebulized] Amoxicillin 500 mg PO Q8HR 04/07/19 04/07/19 History Butalb/APAP/Caff 50-325-40Mg 1 tab PO Q8H PRN 04/07/19 04/07/19 History [Fioricet 50-325-40] Chlorhexidine Gluconate [Peridex] 15 ml PO BID 04/07/19 04/07/19 History Citalopram Hydrobromide [CeleXA] 20 mg PO DAILY 04/07/19 04/07/19 History Meloxicam [Mobic] 15 mg PO DAILY PRN 04/07/19 04/07/19 History Oxybutynin ER [Ditropan Xl] 15 mg PO DAILY 04/07/19 04/07/19 History Phentermine HCl [Adipex-P] 37.5 mg PO DAILY 04/07/19 04/07/19 History clonazePAM [KlonoPIN] 2 mg PO DAILY 04/07/19 04/07/19 History Allergies Allergy/AdvReac Type Severity Reaction Status Date / Time azithromycin Allergy Swelling Verified 04/07/19 10:18 [From Zithromax Z-Brayden] ondansetron HCl Allergy Vomiting Verified 04/07/19 10:18 [From Zofran (as hydrochloride)] Physical Exam Vitals: Vital Signs Temp Pulse Pulse Resp BP BP Pulse Ox 04/08/19 08:00 69 18 04/08/19 07:52 96 04/08/19 07:05 97.9 F 69 18 91/59 100 04/08/19 04:00 97.5 F L 79 18 117/75 99 04/08/19 03:05 18 04/08/19 00:00 18 04/07/19 23:42 98 F 79 18 111/76 100 04/07/19 20:25 84 04/07/19 20:10 82 04/07/19 20:00 18 04/07/19 19:32 97.3 F L 79 18 115/73 99 04/07/19 16:22 84 04/07/19 16:09 82 97 04/07/19 16:00 77 14 04/07/19 15:51 97.7 F 77 14 121/80 100 04/07/19 13:58 77 16 04/07/19 13:42 97.8 F 77 16 137/91 100 04/07/19 13:00 75 12 153/92 100 04/07/19 12:30 76 14 150/91 100 04/07/19 12:00 87 18 140/90 100 04/07/19 11:30 63 18 123/91 98 04/07/19 11:00 77 18 132/94 100 04/07/19 10:30 80 18 141/109 99 04/07/19 10:07 18 98 04/07/19 09:52 98.1 F 98 18 141/91 98 Intake and Output 04/07/19 04/08/19 04/08/19 22:59 06:59 14:59 Intake Total 60.584 85.105 Balance 60.584 85.105 Intake: Intake, IV Titration 60.584 85.105 Amount Heparin Sod,Pork in 0.45% 60.584 85.105 NaCl 25,000 unit In 0.45 % NaCl 1 250ml.bag @ 12 UNITS/KG/HR 9.798 mls/hr IV .Q24H [facility] Rx#: [id number] Other: Voiding Method Toilet Toilet Toilet # Voids 1 1 Results 04/08/19 06:40 04/08/19 06:40 Cardiac Enzymes 04/07/19 04/07/19 04/07/19 Range/Units 10:12 10:12 17:40 AST 26 (14-36) U/L Troponin I <0.012 <0.012 (0.000-0.034) ng/mL 04/07/19 Range/Units 22:10 AST (14-36) U/L Troponin I <0.012 (0.000-0.034) ng/mL Coagulation 04/07/19 04/07/19 04/08/19 Range/Units 10: 17:40 00:49 PT 10.8 (9.0-12.0) sec APTT 27.0 41.9 H 80.4 H (22.0-30.0) sec 04/08/19 Range/Units 06:40 PT (9.0-12.0) sec APTT 62.2 H (22.0-30.0) sec Lipids 04/07/19 04/08/19 Range/Units 10:12 06:40 Triglycerides 128 172 H (<150) mg/dL Cholesterol 145 131 (<200) mg/dL HDL Cholesterol 48 42 (40-60) mg/dL CBC 04/07/19 04/08/19 Range/Units 10:12 06:40 WBC 5.4 4.9 (3.8-10.6) k/uL RBC 4.33 4.01 (3.80-5.40) m/uL Hgb 13.8 12.2 (11.4-16.0) gm/dL Hct 40.1 38.6 (34.0-46.0) % Plt Count 316 273 (150-450) k/uL Comprehensive Metabolic Panel 04/07/19 04/08/19 Range/Units 10:12 06:40 Sodium 141 141 (137-145) mmol/L Potassium 4.3 4.2 (3.5-5.1) mmol/L Chloride 103 101 (98-107) mmol/L Carbon Dioxide 29 34 H (22-30) mmol/L BUN 11 13 (7-17) mg/dL Creatinine 0.72 0.93 (0.52-1.04) mg/dL Glucose 85 94 (74-99) mg/dL Calcium 9.8 9.2 (8.4-10.2) mg/dL AST 26 (14-36) U/L ALT 33 (9-52) U/L Alkaline Phosphatase 36 L (38-126) U/L Total Protein 8.3 H (6.3-8.2) g/dL Albumin 4.7 (3.5-5.0) g/dL Current Medications Generic Name Dose Route Start Last Admin Trade Name Freq PRN Reason Stop Dose Admin Acetaminophen/Butalbital/Caffeine 1 each 04/07/19 14:37 Fioricet 50-325-40 PO Q8H PRN Migraine Headache Hydrocodone Bitart/Acetaminophen 1 each 04/07/19 16:00 04/07/19 20:15 [place] 10 PO 1 each TID [facility] Administration Albuterol/Ipratropium 3 ml 04/07/19 16:00 04/08/19 07:54 Duoneb 0.5 Mg-3 Mg/3 Ml Soln INHALATION Not Given RT-QID [facility] Albuterol/Ipratropium 3 ml 04/07/19 14:36 Duoneb 0.5 Mg-3 Mg/3 Ml Soln INHALATION RT-Q2H PRN Shortness Of Breath Or Wheezing Aspirin 81 mg 04/08/19 09:00 Aspirin PO DAILY [facility] Chlorhexidine Gluconate 15 ml 04/07/19 21:00 04/07/19 20:15 Peridex MUCOUS MEM 15 ml BID [facility] Administration Citalopram Hydrobromide 20 mg 04/08/19 09:00 Celexa PO DAILY [facility] Clonazepam 2 mg 04/08/19 09:00 Klonopin PO DAILY [facility] Cyclobenzaprine HCl 5 mg 04/07/19 19:00 04/07/19 20:15 Flexeril PO 5 mg BID PRN Administration Muscle Spasm Docusate Sodium 100 mg 04/07/19 14:37 Colace PO HS PRN Constipation Famotidine 40 mg 04/08/19 09:00 Pepcid PO DAILY [facility] Fenofibrate 160 mg 04/07/19 21:00 04/07/19 20:15 Lofibra PO 160 mg HS [facility] Administration Gabapentin 600 mg 04/07/19 16:00 04/07/19 20:15 Neurontin PO 600 mg TID [facility] Administration Heparin Sodium (Porcine) 0 unit 04/07/19 18:24 04/07/19 18:38 Heparin IV 2,041.175 unit PER PROTOCOL PRN Administration Low PTT Protocol Insulin Aspart 0 unit 04/07/19 17:30 04/08/19 07:26 Novolog SQ Not Given ACHS [facility] Protocol Ketotifen Fumarate 1 drops 04/07/19 14:45 04/07/19 16:15 Zaditor BOTH EYES Not Given DAILY [facility] Lidocaine HCl 1 applic 04/07/19 21:00 04/07/19 20:15 Xylocaine Jelly 2% TOPICAL 1 applic BID [facility] Administration Loratadine 10 mg 04/08/19 09:00 Claritin PO DAILY [facility] Losartan Potassium 50 mg 04/08/19 09:00 Cozaar PO QAM [facility] Meloxicam 15 mg 04/07/19 14:37 Mobic PO DAILY PRN Pain Metformin HCl 500 mg 04/07/19 17:30 04/07/19 17:36 Glucophage PO 500 mg BID-W/MEALS [facility] Administration Nitroglycerin 0.4 mg 04/07/19 12:03 Nitrostat SUBLINGUAL Q5M PRN Chest Pain Oxtellar Xr 300mg 900 mg 04/08/19 09:00 PO QAM [facility] Oxybutynin Chloride 15 mg 04/08/19 09:00 Ditropan Xl PO DAILY [facility] Pantoprazole Sodium 40 mg 04/07/19 21:00 04/07/19 20:15 Protonix PO 40 mg [id number] [facility] Administration Prochlorperazine Maleate 10 mg 04/07/19 21:00 04/07/19 20:15 Compazine PO 10 mg BID [facility] Administration Verapamil HCl 120 mg 04/08/19 09:00 Isoptin Sr PO QAM [facility] Intake and Output 04/07/19 04/08/19 04/08/19 22:59 06:59 14:59 Intake Total 60.584 85.105 Balance 60.584 85.105 Intake: Intake, IV Titration 60.584 85.105 Amount Heparin Sod,Pork in 0.45% 60.584 85.105 NaCl 25,000 unit In 0.45 % NaCl 1 250ml.bag @ 12 UNITS/KG/HR 9.798 mls/hr IV .Q24H [facility] Rx#: [id number] Other: Voiding Method Toilet Toilet Toilet # Voids 1 1 04/08/19 06:40 04/08/19 06:40
[2019-04-08] MEDS: clonazePAM 1 MG TAB PO SCH (10:56)
[2019-04-08] MEDS: ASPIRIN 81 MG PO SCH (10:57)
[2019-04-08] MEDS: metFORMIN 500 MG TAB PO SCH ×2 (10:57→17:11)
[2019-04-08] MEDS: FAMOTIDINE 20 MG TAB PO SCH (10:57)
[2019-04-08] MEDS: HYDROcodone/APAP 10-325MG 1 EACH TAB PO SCH ×3 (10:57→21:23)
[2019-04-08] MEDS: CHLORHEXIDINE GLUCONATE 15 ML CUP MUCOUS MEM SCH ×2 (10:58→21:23)
[2019-04-08] MEDS: LORATADINE 10 MG TAB PO SCH (10:58)
[2019-04-08] MEDS: GABAPENTIN 300 MG CAP PO SCH ×3 (10:58→21:23)
[2019-04-08] MEDS: KETOTIFEN 0.025% OPHTH DROPS 5 ML BTL BOTH EYES SCH (10:58)
[2019-04-08] MEDS: CITALOPRAM HYDROBROMIDE 20 MG TAB PO SCH (10:58)
[2019-04-08] MEDS: LIDOCAINE 2% GEL 30 ML TUBE TOPICAL SCH ×2 (10:59→21:24)
[2019-04-08] MEDS: OXYBUTYNIN 15 MG TAB.ER.24 PO SCH (10:59)
[2019-04-08] MEDS: PROCHLORPERAZINE 10 MG TAB PO SCH ×2 (10:59→21:23)
[2019-04-08] MEDS: VERAPAMIL SR 120 MG TABLET.ER PO SCH (10:59)
[2019-04-08] MEDS: OXCARBAZEPINE 300 MG PO SCH (10:59)
[2019-04-08] MEDS: PANTOPRAZOLE 40 MG TABLET PO SCH (11:34)
[2019-04-08 11:41] LABS: Glucose,Whole Blood 89 mg/dL (75-99)
--- NOTE | 2019-04-08 11:53 | ECHOF ---
Referral Reason:chest pain MEASUREMENTS -------- HEIGHT: 152.4 cm WEIGHT: 81.6 kg BP: 123/91 RVIDd: 3.4 cm (< 3.3) IVSd: 0.9 cm (0.6 - 1.1) LVIDd: 4.3 cm (3.9 - 5.3) LVPWd: 1.2 cm (0.6 - 1.1) IVSs: 1.2 cm LVIDs: 2.7 cm LVPWs: 2.1 cm LA Diam: 2.6 cm (2.7 - 3.8) LAESV Index (A-L): 17.31 ml/m Ao Diam: 3.4 cm (2.0 - 3.7) AV Cusp: 2.5 cm (1.5 - 2.6) LA Diam: 2.8 cm (2.7 - 3.8) MV EXCURSION: 19.436 mm (> 18.000) MV EF SLOPE: 84 mm/s (70 - 150) EPSS: 1.1 cm MV E Jordan: 0.77 m/s MV DecT: 208 ms MV A Jordan: 0.91 m/s MV E/A Ratio: 0.84 RAP: 5.00 mmHg RVSP: 25.28 mmHg TAPSE: 18.35 mm FINDINGS -------- Sinus rhythm. This was a technically adequate study. LV size, wall thickness and systolic function are normal, with an EF greater than 55%. The left marshal tricular size is normal. The right ventricle is normal in size. The left atrial size is normal. Normal LA size by volume 22+/-6 ml/m2. The right atrial size is normal. The aortic valve is trileaflet, and appears structurally normal. No aortic stenosis or regurgitation. Mild mitral annular calcification present. Mild mitral regurgitation is present. Mild tricuspid regurgitation present. Right ventricular systolic pressure is normal at < 35 mmHg. There is no evidence of pulmonary hypertension. There is no pulmonic regurgitation present. The aortic root size is normal. There is no pericardial effusion. CONCLUSIONS -------- 1. Sinus rhythm. 2. This was a technically adequate study. 3. LV size, wall thickness and systolic function are normal, with an EF greater than 55%. 4. The left ventricular size is normal. 5. The right ventricle is normal in size. 6. The left atrial size is normal. 7. Normal LA size by volume 22+/-6 ml/m2. 8. The right atrial size is normal. 9. The aortic valve is trileaflet, and appears structurally normal. No aortic stenosis or regurgitati on. 10. Mild mitral annular calcification present. 11. Mild mitral regurgitation is present. 12. Mild tricuspid regurgitation present. 13. Right ventricular systolic pressure is normal at < 35 mmHg. 14. There is no evidence of pulmonary hypertension. 15. There is no pulmonic regurgitation present. 16. The aortic root size is normal. 17. There is no pericardial effusion. [employer] OPERATOR: Stephy Wilks RDCS
--- NOTE | 2019-04-08 11:55 | P.HPIM ---
History of Present Illness H&P Date: 04/08/19 Chief Complaint: Chest pressure This is a pleasant 49-year-old female, patient of my partners, Dr. Connor King. She reports chest pressure on and off over the past several days. ER visit was prompted after she had woken up and had trouble speaking and paresthesias to her right side of the face. She is dealing with a bad tooth and dental caries on the right lower mandible area. She recently underwent a filling, however it appears to failed. She indicates that her chest pressure symptoms lasted minutes to hours. The facial paresthesia and trouble speaking only lasted a few moments initially on waking up. She has a great deal of trouble remembering things and she had an episode of status epilepticus that left her with short-term memory loss. Her indicates that she is unsure about taking some of her medications and that she possibly run out of her blood pressure pill and not restarted. She denies any shortness of breath, nausea or vomiting. She does have a history of type 2 diabetes, hyperlipidemia. My partner and ordered an outpatient stress test for her just recently. Review of Systems All systems: negative Past Medical History Past Medical History: Asthma, Diabetes Mellitus, GERD/Reflux, Hyperlipidemia, Hypertension, Osteoarthritis (OA), Seizure Disorder, Sleep Apnea/CPAP/BIPAP Additional Past Medical History / Comment(s): Current R elbow fracture and L wrist fracture with casts removed d/t clausterphobia/now wears splints, NIDDM type II, chronic low back pain with occasional bilateral sciatica, shattered tailbone, chronic cervical pain/spurs on r side of neck, 2017 grand mal seizure with comprehension issues/loss of memory ever since, "black outs" with no known cause, TILA with no device, diverticulitis/colitis with bowel resection, constipation, overactive bladder, kidney stones. History of Any Multi-Drug Resistant Organisms: None Reported Past Surgical History: Appendectomy, Bowel Resection, Cholecystectomy, Heart Catheterization, Hysterectomy, Orthopedic Surgery, Tubal Ligation, Uterine Ablation Additional Past Surgical History / Comment(s): Bowel resection for colitis/diverticulitis, EGDs, colonoscopies, loop recorder now removed, multiple pain clinic procedures, bilateral rotator cuff surgery, R hand ganglion cyst removed 3 times, tilt table test, MRI with anesthesia d/t clausterphobia. Past Anesthesia/Blood Transfusion Reactions: No Reported Reaction Type of Cardiac Device: Loop Device Placement Date:: MAR 2009 AND 2013 Smoking Status: Former smoker - Past Family History Mother Family Medical History: Cancer, Diabetes Mellitus Additional Family Medical History / Comment(s): Uterine cancer. Mother is living. Father Family Medical History: Cancer, Diabetes Mellitus, Hyperlipidemia, Hypertension, Renal Disease Additional Family Medical History / Comment(s): L lung cancer found post mortem. from renal failure. Medications and Allergies Home Medications Medication Instructions Recorded Confirmed Type Docusate Sodium [Dulcolax Stool 100 mg PO HS PRN 03/03/14 04/07/19 History Softener] Omeprazole [PriLOSEC] 20 mg PO BID 04/03/14 04/07/19 History Albuterol Inhaler [Ventolin Hfa 2 puff INHALATION RT-QID PRN 11/23/14 04/07/19 History Inhaler] Azelastine HCl [Optivar 0.05% 1 drop BOTH EYES DAILY 06/12/16 04/07/19 History Ophth Soln] Fenofibrate 160 mg PO HS 06/12/16 04/07/19 History OXcarbazepine [Oxtellar Xr] 900 mg PO QAM 06/12/16 04/07/19 History Prochlorperazine [Compazine] 10 mg PO BID 06/12/16 04/07/19 History Verapamil HCl [Verapamil ER] 120 mg PO QAM 06/12/16 04/07/19 History Cetirizine HCl 10 mg PO DAILY 05/01/17 04/07/19 History Losartan [Cozaar] 50 mg PO QAM 03/05/18 04/07/19 History Gabapentin 600 mg PO TID 06/07/18 04/07/19 History metFORMIN HCL [metFORMIN HCL ER] 500 mg PO BID 06/07/18 04/07/19 History Famotidine [Pepcid] 40 mg PO DAILY 09/19/18 04/07/19 History HYDROcodone/APAP 10-325MG [[place] 1 tab PO TID 09/19/18 04/07/19 History 10-325] Lidocaine 2% Gel [Xylocaine Jelly 1 applic TOPICAL BID 02/20/19 04/07/19 History 2%] Albuterol Nebulized [Ventolin 2.5 mg INHALATION RT-QID PRN 04/07/19 04/07/19 History Nebulized] Amoxicillin 500 mg PO Q8HR 04/07/19 04/07/19 History Butalb/APAP/Caff 50-325-40Mg 1 tab PO Q8H PRN 04/07/19 04/07/19 History [Fioricet 50-325-40] Chlorhexidine Gluconate [Peridex] 15 ml PO BID 04/07/19 04/07/19 History Citalopram Hydrobromide [CeleXA] 20 mg PO DAILY 04/07/19 04/07/19 History Meloxicam [Mobic] 15 mg PO DAILY PRN 04/07/19 04/07/19 History Oxybutynin ER [Ditropan Xl] 15 mg PO DAILY 04/07/19 04/07/19 History clonazePAM [KlonoPIN] 2 mg PO DAILY 04/07/19 04/07/19 History Allergies Allergy/AdvReac Type Severity Reaction Status Date / Time azithromycin Allergy Swelling Verified 04/07/19 10:18 [From Zithromax Z-Brayden] ondansetron HCl Allergy Vomiting Verified 04/07/19 10:18 [From Zofran (as hydrochloride)] onion Allergy Swelling Verified 04/08/19 10:55 Physical Exam Vitals: Vital Signs Temp Pulse Pulse Resp BP BP Pulse Ox 04/08/19 11:21 98.0 F 72 18 112/75 97 04/08/19 08:00 69 18 04/08/19 07:52 96 04/08/19 07:05 97.9 F 69 18 91/59 100 04/08/19 04:00 97.5 F L 79 18 117/75 99 04/08/19 03:05 18 04/08/19 00:00 18 04/07/19 23:42 98 F 79 18 111/76 100 04/07/19 20:25 84 04/07/19 20:10 82 04/07/19 20:00 18 04/07/19 19:32 97.3 F L 79 18 115/73 99 04/07/19 16:22 84 04/07/19 16:09 82 97 04/07/19 16:00 77 14 04/07/19 15:51 97.7 F 77 14 121/80 100 04/07/19 13:58 77 16 10/14/19 13:42 97.8 F 77 16 137/91 100 04/07/19 13:00 75 12 153/92 100 04/07/19 12:30 76 14 150/91 100 04/07/19 12:00 87 18 140/90 100 Intake and Output 04/07/19 04/08/19 04/08/19 22:59 06:59 14:59 Intake Total 60.584 85.105 Balance 60.584 85.105 Intake: Intake, IV Titration 60.584 85.105 Amount Heparin Sod,Pork in 0.45% 60.584 85.105 NaCl 25,000 unit In 0.45 % NaCl 1 250ml.bag @ 12 UNITS/KG/HR 9.798 mls/hr IV .Q24H [facility] Rx#: [id number] Other: Voiding Method Toilet Toilet Toilet # Voids 1 1 GENERAL: Fatigued, well-nourished and in no acute distress. She is somewhat obese HEAD: Atraumatic, normocephalic. EYES: Pupils equal round and reactive to light, extraocular movements intact, sclera anicteric, conjunctiva are normal. ENT:nares patent, oropharynx clear without exudates. Moist mucous membranes. NECK: Normal range of motion, supple without lymphadenopathy or JVD, no thyromegaly LUNGS: Breath sounds clear to auscultation bilaterally and equal. No wheezes rales or rhonchi. HEART: Regular rate and rhythm without murmurs, rubs or gallops.S1S2 Normal ABDOMEN: Soft, nontender, normoactive bowel sounds. No guarding, no rebound. No masses appreciated. EXTREMITIES: Normal range of motion, no pitting or edema. No clubbing or cyanosis. NEUROLOGICAL: Cranial nerves II through XII grossly intact. Normal speech, normal gait. PSYCH: Normal mood, normal affect. SKIN: Warm, Dry, normal turgor, no rashes or lesions noted. Results CBC & Chem 7: 04/08/19 06:40 04/08/19 06:40 Labs: Abnormal Lab Results - Last 24 Hours (Table) 04/07/19 04/07/19 04/08/19 Range/Units 16:54 17:40 00:08 APTT 41.9 H (22.0-30.0) sec Carbon Dioxide (22-30) mmol/L POC Glucose (mg/dL) 117 H (75-99) mg/dL Triglycerides (<150) mg/dL Urine Opiates Screen Detected H (NotDetected) U Benzodiazepines Scrn Detected H (NotDetected) 04/08/19 04/08/19 04/08/19 Range/Units 00:49 06:40 06:40 APTT 80.4 H 62.2 H (22.0-30.0) sec Carbon Dioxide 34 H (22-30) mmol/L POC Glucose (mg/dL) (75-99) mg/dL Triglycerides 172 H (<150) mg/dL Urine Opiates Screen (NotDetected) U Benzodiazepines Scrn (NotDetected) Chest x-ray: report reviewed CT Scan - head: report reviewed Thrombosis Risk Factor Assmnt - DVT/VTE Prophylaxis DVT/VTE Prophylaxis: Pharmacologic Prophylaxis ordered (Patient is currently on a heparin drip) - Choose All That Apply Any of the Below Risk Factors Present?: Yes Each Factor Represents 1 point: Age 41-60 years, Obesity (BMI >25) Other Risk Factors: No Other congenital or acquired thrombophilia - If yes, enter type in comment: No Thrombosis Risk Factor Assessment Total Risk Factor Score: 2 Thrombosis Risk Factor Assessment Level: Low Risk Assessment and Plan (1) Infected dental carries Current Visit: Yes Status: Acute Code(s): K02.9 - DENTAL CARIES, UNSPECIFIED; K04.7 - PERIAPICAL ABSCESS WITHOUT SINUS SNOMED Code(s): 49129384 (2) Facial paresthesia Current Visit: Yes Status: Acute Code(s): R20.9 - UNSPECIFIED DISTURBANCES OF SKIN SENSATION SNOMED Code(s): 17024046 (3) Dysarthria Current Visit: Yes Status: Acute Code(s): R47.1 - DYSARTHRIA AND ANARTHRIA SNOMED Code(s): 8953613 (4) Short-term memory loss Current Visit: Yes Status: Acute Code(s): R41.3 - OTHER AMNESIA SNOMED Code(s): 039482730 (5) Chest pain Current Visit: Yes Status: Acute Code(s): R07.9 - CHEST PAIN, UNSPECIFIED SNOMED Code(s): 21269350 (6) Diabetes Current Visit: No Status: Acute Code(s): E11.9 - TYPE 2 DIABETES MELLITUS WITHOUT COMPLICATIONS SNOMED Code(s): 96000577 (7) Essential (primary) hypertension Current Visit: No Status: Acute Code(s): I10 - ESSENTIAL (PRIMARY) HYPERTENSION SNOMED Code(s): 13064245 (8) Moderate major depression Current Visit: No Status: Acute Code(s): F32.1 - MAJOR DEPRESSIVE DISORDER, SINGLE EPISODE, MODERATE SNOMED Code(s): 801997 (9) Lumbar and sacral spondyloarthritis Current Visit: No Status: Chronic Code(s): M48.9 - SPONDYLOPATHY, UNSPECIFIED SNOMED Code(s): 251467101 (10) Lumbar radiculopathy, chronic Current Visit: No Status: Chronic Code(s): M54.16 - RADICULOPATHY, LUMBAR REGION SNOMED Code(s): 789486289 (11) Asthma Current Visit: Yes Status: Acute Code(s): J45.909 - UNSPECIFIED ASTHMA, UNCOMPLICATED SNOMED Code(s): 428720872 Plan: I will consult cardiology and neurology for further evaluations. On Rocephin 1 g for dental caries suspect. With serial troponins negative, possible outpatient stress test after evaluations. 2-D echo is pending from cardiology. Control her pain with her home medications of Freedom 10/325, 3 times a day when necessary I asked her to get out of bed and/or sit in the chair with frequent position changes to help with her back pain. Flexeril 3 times a day, 5 mg when necessary for pain with pain. Insulin scale for her diabetes management this time. Restart her other home medications as needed. Repeat labs in a.m., reevaluate next 24 hours depending on the consultants recommendations.
--- NOTE | 2019-04-08 15:14 | P.CNNES ---
History of Present Illness Consult date: 04/08/19 Requesting physician: Lawrence Brown Reason for Consult: Left-sided facial numbness and tingling, memory impairment History of Present Illness: Patient is a 49-year-old female, who states that on Sunday, 2 days ago she woke up and noticed numbness in the face pointing to the lips, tongue all around, that lasted for 20 minutes. She also had pressure in the chest and she couldn't talk. She felt it was just related to diabetes and ignored it. Her symptoms resolved within 20 minutes. Next day on Sunday, which is yesterday, she woke up and noticed tingling around her lips all over with chest pressure. She got con cerned therefore came to the hospital. Her symptoms resolved in around 15 minutes. She denies any symptoms involving extremities, focal weakness, or problem with the vision. Her fianc noticed that one of her lip "felt slanted". At present patient has no symptoms. Patient does not take any antiplatelet medication at home. Patient underwent computed tomography scan of the head which was normal. Patient has been seen by medical claims analyst, who felt patient has atypical chest pain. An acute coronary event has been ruled out. Patient has hypertension, dyslipidemia and diabetes and history of seizure disorder. Patient has obesity with BMI 34. 2-D echo showed normal sinus rhythm. EF 55%. Left-ventricular size is normal. Left atrial size is normal. Patient has history of seizure disorder, for which she is taking Oxtellar XR 300 mg, 3 tablets daily. Patient follows affected local neurologist Dr Andrade. Review of Systems As mentioned above in detail. Denies any headache, problem with the vision. Denies numbness tingling of the extremities. No diplopia. Patient had some chest pressure but no shortness of breath. Constitutional: Reports anorexia Past Medical History Past Medical History: Asthma, Diabetes Mellitus, GERD/Reflux, Hyperlipidemia, Hypertension, Osteoarthritis (OA), Seizure Disorder, Sleep Apnea/CPAP/BIPAP Additional Past Medical History / Comment(s): Current R elbow fracture and L wrist fracture with casts removed d/t clausterphobia/now wears splints, NIDDM type II, chronic low back pain with occasional bilateral sciatica, shattered tailbone, chronic cervical pain/spurs on r side of neck, 2017 grand mal seizure with comprehension issues/loss of memory ever since, "black outs" with no known cause, TILA with no device, diverticulitis/colitis with bowel resection, constipation, overactive bladder, kidney stones. History of Any Multi-Drug Resistant Organisms: None Reported Past Surgical History: Appendectomy, Bowel Resection, Cholecystectomy, Heart Catheterization, Hysterectomy, Orthopedic Surgery, Tubal Ligation, Uterine Ablation Additional Past Surgical History / Comment(s): Bowel resection for colitis/diverticulitis, EGDs, colonoscopies, loop recorder now removed, multiple pain clinic procedures, bilateral rotator cuff surgery, R hand ganglion cyst rem emelia 3 times, tilt table test, MRI with anesthesia d/t clausterphobia. Past Anesthesia/Blood Transfusion Reactions: No Reported Reaction Type of Cardiac Device: Loop Device Placement Date:: MAR 2009 AND 2013 Smoking Status: Former smoker - Past Family History Mother Family Medical History: Cancer, Diabetes Mellitus Additional Family Medical History / Comment(s): Uterine cancer. Mother is living. Father Family Medical History: Cancer, Diabetes Mellitus, Hyperlipidemia, Hypertension, Renal Disease Additional Family Medical History / Comment(s): L lung cancer found post mortem. from renal failure. Medications and Allergies Home Medications Medication Instructions Recorded Confirmed Type Docusate Sodium [Dulcolax Stool 100 mg PO HS PRN 03/03/14 04/07/19 History Softener] Omeprazole [PriLOSEC] 20 mg PO BID 04/03/14 04/07/19 History Albuterol Inhaler [Ventolin Hfa 2 puff INHALATION RT-QID PRN 11/23/14 04/07/19 History Inhaler] Azelastine HCl [Optivar 0.05% 1 drop BOTH EYES DAILY 06/12/16 04/07/19 History Ophth Soln] Fenofibrate 160 mg PO HS 06/12/16 04/07/19 History OXcarbazepine [Oxtellar Xr] 900 mg PO QAM 06/12/16 04/07/19 History Prochlorperazine [Compazine] 10 mg PO BID 06/12/16 04/07/19 History Verapamil HCl [Verapamil ER] 120 mg PO QAM 06/12/16 04/07/19 History Cetirizine HCl 10 mg PO DAILY 05/01/17 04/07/19 History Losartan [Cozaar] 50 mg PO QAM 03/05/18 04/07/19 History Gabapentin 600 mg PO TID 06/07/18 04/07/19 History metFORMIN HCL [metFORMIN HCL ER] 500 mg PO BID 06/07/18 04/07/19 History Famotidine [Pepcid] 40 mg PO DAILY 09/19/18 04/07/19 History HYDROcodone/APAP 10-325MG [[place] 1 tab PO TID 09/19/18 04/07/19 History 10-325] Lidocaine 2% Gel [Xylocaine Jelly 1 applic TOPICAL BID 02/20/19 04/07/19 History 2%] Albuterol Nebulized [Ventolin 2.5 mg INHALATION RT-QID PRN 04/07/19 04/07/19 History Nebulized] Amoxicillin 500 mg PO Q8HR 04/07/19 04/07/19 History Butalb/APAP/Caff 50-325-40Mg 1 tab PO Q8H PRN 04/07/19 04/07/19 History [Fioricet 50-325-40] Chlorhexidine Gluconate [Peridex] 15 ml PO BID 04/07/19 04/07/19 History Citalopram Hydrobromide [CeleXA] 20 mg PO DAILY 04/07/19 04/07/19 History Meloxicam [Mobic] 15 mg PO DAILY PRN 04/07/19 04/07/19 History Oxybutynin ER [Ditropan Xl] 15 mg PO DAILY 04/07/19 04/07/19 History clonazePAM [KlonoPIN] 2 mg PO DAILY 04/07/19 04/07/19 History Allergies Allergy/AdvReac Type Severity Reaction Status Date / Time azithromycin Allergy Swelling Verified 04/07/19 10:18 [From Zithromax Z-Brayden] ondansetron HCl Allergy Vomiting Verified 04/07/19 10:18 [From Zofran (as hydrochloride)] onion Allergy Swelling Verified 04/08/19 10:55 Physical Examination - Vital Signs Vital Signs: Vital Signs Temp Pulse Pulse Resp BP Pulse Ox 04/08/19 12:00 72 18 04/08/19 11:21 98.0 F 72 18 112/75 97 04/08/19 08:00 69 18 04/08/19 07:52 96 04/08/19 07:05 97.9 F 69 18 91/59 100 04/08/19 04:00 97.5 F L 79 18 117/75 99 04/08/19 03:05 18 04/08/19 00:00 18 04/07/19 23:42 98 F 79 18 111/76 100 04/07/19 20:25 84 04/07/19 20:10 82 04/07/19 20:00 18 04/07/19 19:32 97.3 F L 79 18 115/73 99 04/07/19 16:22 84 04/07/19 16:09 82 97 04/07/19 16:00 77 14 04/07/19 15:51 97.7 F 77 14 121/80 100 Intake and Output 04/07/19 04/08/19 04/08/19 22:59 06:59 14:59 Intake Total 60.584 85.105 Balance 60.584 85.105 Intake: Intake, IV Titration 60.584 85.105 Amount Heparin Sod,Pork in 0.45% 60.584 85.105 NaCl 25,000 unit In 0.45 % NaCl 1 250ml.bag @ 12 UNITS/KG/HR 9.798 mls/hr IV .Q24H [facility] Rx#: [id number] Other: Voiding Method Toilet Toilet Toilet # Voids 1 1 3 On examination patient is a middle aged female, in no distress. Her mental status, speech and language functions are normal. Attention and concentration, fund of knowledge appears adequate. She has slightly slow mentation. On cranial nerve examination pupils are round and reacting to light, visual capone are full. Face is symmetric and tongue protrudes the midline. Palatal elevation and sensation normal. On muscle strength testing there is no pronator drift and the strength is normal in arms and legs distally and proximally. Deep tendon reflexes are symmetric and plantars are downgoing bilaterally. Tone and bulk of muscles normal. There is no obvious bruit or murmur. Peripheral pulses present. Results Patient's last hemoglobin A1c is 5.8 on 09/20/2018. Liver panel normal, total cholesterol 131, LDL 55 and HDL 42. Triglycerides 172. - Laboratory Findings CBC and BMP: 04/08/19 06:40 04/08/19 06:40 Abnormal Lab Findings: Abnormal Labs 10/14/19 10/14/19 10/14/19 10:12 16:54 17:40 APTT 41.9 H Carbon Dioxide POC Glucose (mg/dL) 117 H Alkaline Phosphatase 36 L Total Protein 8.3 H Triglycerides Urine Opiates Screen U Benzodiazepines Scrn 04/08/19 04/08/19 04/08/19 00:08 00:49 06:40 APTT 80.4 H Carbon Dioxide 34 H POC Glucose (mg/dL) Alkaline Phosphatase Total Protein Triglycerides 172 H Urine Opiates Screen Detected H U Benzodiazepines Scrn Detected H 04/08/19 06:40 APTT 62.2 H Carbon Dioxide POC Glucose (mg/dL) Alkaline Phosphatase Total Protein Triglycerides Urine Opiates Screen U Benzodiazepines Scrn Assessment and Plan Assessment: * 2 episodes of perioral paresthesias with chest heaviness, symptoms resolved in 15-20 minutes. Rule out TIA * Diabetes, well controlled. * Obesity. * Seizure disorder, currently on Oxtellar XR 900 mg daily. Plan: * We will check carotid Doppler to rule out stenosis. * Start aspirin 81 mg daily. * Her lipids are well controlled with cholesterol 131, LDL 55. Continue fenofibrate 160 mg at at bedtime. * We will check B12, folate levels. * Neurologically otherwise clear for discharge, if carotid Dopplers comes back negative.
--- NOTE | 2019-04-08 15:45 | US ---
EXAMINATION TYPE: US carotid duplex BILAT DATE OF EXAM: 04/08/2019 COMPARISON: NONE CLINICAL HISTORY: TIA. TIA, Chest Pain EXAM MEASUREMENTS: RIGHT: Peak Systolic Velocity (PSV) cm/sec ----- Right CCA: 49.0 ----- Right ICA: 76.8 ----- Right ECA: 60.1 ICA/CCA ratio: 1.6 RIGHT: End Diastole cm/sec ----- Right CCA: 14.9 ----- Right ICA: 32.9 ----- Right ECA: 10.4 LEFT: Peak Systolic Velocity (PSV) cm/sec ----- Left CCA: 58.4 ----- Left ICA: 75.7 ----- Left ECA: 46.2 ICA/CCA ratio: 1.3 LEFT: End Diastole cm/sec ----- Left CCA: 21.7 ----- Left ICA: 26.3 ----- Left ECA: 9.2 VERTEBRALS (direction of flow): Right Vertebral: Antegrade Left Vertebral: Antegrade Rhythm: Normal No significant stenosis seen IMPRESSION: 1. No significant hemodynamic stenosis as visualized. Criteria for Assigning % of Stenosis / Diameter reduction (Estimation based on the indirect measurements of the internal carotid artery velocities (ICA PSV). 1. Normal (no stenosis)=ICA PSV < 125 cm/s: ratio < 2.0: ICA EDV<40 cm/s. 2. Less than 50% stenosis=ICA PSV < 125 cm/s: ratio < 2.0: ICA EDV<40 cm/s. 3. 50 to 69% stenosis=ICA PSV of 125 to 230 cm/s: ration 2.0 ? 4.0: ICA EDV 40-100 cm/s. 4. Greater than 70% stenosis to near occlusion= ICA PSV > 230 cm/s: ratio > 4.0: ICA EDV > 100 cm/s. 5. Near occlusion= ICA PSV velocities may be low or undetectable: variable ratio and ICA EDV. 6. Total occlusion=unable to detect flow.
[2019-04-08 16:28] LABS: Glucose,Whole Blood 95 mg/dL (75-99)
[2019-04-08 20:12] LABS: Glucose,Whole Blood 99 mg/dL (75-99)
[2019-04-08] MEDS: FENOFIBRATE 160 MG TAB PO SCH (21:23)
[2019-04-09 07:19] LABS: Glucose,Whole Blood 91 mg/dL (75-99)
[2019-04-09] MEDS: IPRATROPIUM-ALBUTEROL 3 ML NEB INHALATION SCH ×2 (07:37→11:13)
[2019-04-09 07:50] LABS: Folate, Serum 20.9 ng/mL
[2019-04-09 08:01] LABS: African American GFR (CKD) >90 (>60 ml/min/1.73 sqM); Anion Gap 7 mmol/L; Basophils # (A) 0.1 k/uL (0-0.2); Basophils % (A) 2 %; Blood Urea Nitrogen 15 mg/dL (7-17); Calcium 9.3 mg/dL (8.4-10.2); Carbon Dioxide 32 mmol/L (22-30); Chloride 101 mmol/L (98-107); Eosinophils # (A) 0.2 k/uL (0-0.7); Eosinophils % (A) 4 %; Glucose 90 mg/dL (74-99); HCT 38.7 % (34.0-46.0); HGB 12.3 gm/dL (11.4-16.0); Lymphocytes % (A) 41 %; MCH 30.5 pg (25.0-35.0); MCHC 31.7 g/dL (31.0-37.0); MCV 96.3 fL (80.0-100.0); Mean Platelet Volume 6.6; Monocytes # (A) 0.3 k/uL (0-1.0); Monocytes % (A) 6 %; Neutrophils # (A) 2.1 k/uL (1.3-7.7); Neutrophils % (A) 44 %; Platelet Count 279 k/uL (150-450); Potassium 4.2 mmol/L (3.5-5.1); RBC 4.02 m/uL (3.80-5.40); RDW 12.9 % (11.5-15.5); Sodium 140 mmol/L (137-145); WBC 4.7 k/uL (3.8-10.6)
[2019-04-09] MEDS: KETOTIFEN 0.025% OPHTH DROPS 5 ML BTL BOTH EYES SCH (09:28)
[2019-04-09] MEDS: CITALOPRAM HYDROBROMIDE 20 MG TAB PO SCH (09:29)
[2019-04-09] MEDS: LORATADINE 10 MG TAB PO SCH (09:29)
[2019-04-09] MEDS: GABAPENTIN 300 MG CAP PO SCH (09:29)
[2019-04-09] MEDS: clonazePAM 1 MG TAB PO SCH (09:29)
[2019-04-09] MEDS: HYDROcodone/APAP 10-325MG 1 EACH TAB PO SCH (09:29)
[2019-04-09] MEDS: ASPIRIN 81 MG PO SCH (09:29)
[2019-04-09] MEDS: INSULIN ASPART (NovoLOG) 100 UNIT/ML VIAL SQ SCH ×2 (09:30→13:05)
[2019-04-09] MEDS: OXCARBAZEPINE 300 MG PO SCH (09:30)
[2019-04-09] MEDS: LIDOCAINE 2% GEL 30 ML TUBE TOPICAL SCH (09:30)
[2019-04-09] MEDS: metFORMIN 500 MG TAB PO SCH (09:30)
[2019-04-09] MEDS: PANTOPRAZOLE 40 MG TABLET PO SCH (09:30)
[2019-04-09] MEDS: CHLORHEXIDINE GLUCONATE 15 ML CUP MUCOUS MEM SCH (09:31)
[2019-04-09] MEDS: OXYBUTYNIN 15 MG TAB.ER.24 PO SCH (09:31)
[2019-04-09] MEDS: VERAPAMIL SR 120 MG TABLET.ER PO SCH (09:31)
[2019-04-09] MEDS: PROCHLORPERAZINE 10 MG TAB PO SCH (09:31)
[2019-04-09] MEDS: FAMOTIDINE 20 MG TAB PO SCH (09:52)
[2019-04-09 11:22] VITALS: BP 105/70; PULSE 89; TEMP 97.5
[2019-04-09 11:46] LABS: Glucose,Whole Blood 131 mg/dL (75-99)
--- NOTE | 2019-04-09 13:14 | P.PN ---
Subjective Progress Note Date: 04/09/19 Feels fine. Denies any new symptoms. Patient states that on Sunday, or 1 day prior to arrival, she woke up with numbness of the whole face bilaterally, with numbness of the tongue, difficulty speaking. She also has some chest heaviness. It lasted for about 15-20 minutes and then resolved. The next day, which is yesterday on the day of admission, she woke up with more chest heaviness, but only tingling of the lips only not the entire face. Patient had carotid Doppler, which is normal. Her B12 is 1628, folate 20.9. Patient has been started on aspirin 81 mg daily. She was not taking any antipl atelet medication prior to arrival. Objective - Vital Signs Vital signs: Vital Signs Temp 97.5 F L 04/09/19 11:00 Pulse 89 04/09/19 11:00 Resp 18 04/09/19 11:00 BP 105/70 04/09/19 11:00 Pulse Ox 96 04/09/19 11:00 Intake & Output 04/08/19 04/09/19 04/09/19 18:59 06:59 18:59 Intake Total 240 Balance 240 Intake: Oral 240 Other: Voiding Method Toilet Toilet Toilet # Voids 3 1 - Exam Patient's mental status, speech and language functions are normal. Cranial nerves are normal muscle strength is normal. No ataxia. Tone and bulk of mu scles and gait is normal. - Labs CBC & Chem 7: 04/09/19 06:10 04/09/19 06:10 Labs: Abnormal Lab Results - Last 24 Hours (Table) 04/07/19 04/09/19 Range/Units 10:12 06:10 Carbon Dioxide 32 H (22-30) mmol/L Vitamin B12 1628.0 H (200.0-944.0) pg/mL Assessment and Plan Assessment: * 2 episodes of facial paresthesias with chest heaviness, symptoms resolved in 15-20 minutes. Rule out TIA * Diabetes, well controlled. * Obesity. * Seizure disorder, currently on Oxtellar XR 900 mg daily. Plan: * Carotid Doppler is normal with no significant stenosis. * Continue aspirin 81 mg daily. * Her lipids are well controlled with cholesterol 131, LDL 55. Continue fenofibrate 160 mg at at bedtime. * B12 1628, folate levels is normal 20.9. * Neurologically otherwise clear for discharge, if carotid Dopplers comes back negative.
--- NOTE | 2019-04-17 09:55 | P.DS ---
Providers Date of admission: 04/07/19 12:54 Expected date of discharge: 04/09/19 Attending physician: Connor King Consults: 04/07/19 12:03 Consult Physician Urgent Consulting Provider: Sam Zuniga Consult Reason/Comments: chest pain Do you want consulting provider notified?: Yes 04/08/19 09:39 Consult Physician Routine Consulting Provider: Maeve Farah Consult Reason/Comments: left side facial numbness/ tingling, memory impair ment Do you want consulting provider notified?: Yes Primary care physician: [facility] Course: Final Diagnoses: (1) Infected dental carries Current Visit: Yes Status: Acute Code(s): K02.9 - DENTAL CARIES, UNSPECIFIED; K04.7 - PERIAPICAL ABSCESS WITHOUT SINUS SNOMED Code(s): 63629217 (2) Facial paresthesia, possible TIA Current Visit: Yes Status: Acute Code(s): R20.9 - UNSPECIFIED DISTURBANCES OF SKIN SENSATION SNOMED Code(s): 48741599 (3) Dysarthria Current Visit: Yes Status: Acute Code(s): R47.1 - DYSARTHRIA AND ANARTHRIA SNOMED Code(s): 0275619 (4) Short-term memory loss Current Visit: Yes Status: Acute Code(s): R41.3 - OTHER AMNESIA SNOMED C ode(s): 827538660 (5) Chest pain, atypical, with an acute coronary event ruled out as per cardiology Current Visit: Yes Status: Acute Code(s): R07.9 - CHEST PAIN, UNSPECIFIED SNOMED Code(s): 50105981 (6) Diabetes Current Visit: No Status: Acute Code(s): E11.9 - TYPE 2 DIABETES MELLITUS WITHOUT COMPLICATIONS SNOMED Code(s): 03669797 (7) Essential (primary) hypertension Current Visit: No Status: Acute Code(s): I10 - ESSENTIAL (PRIMARY) HYPERT ENSION SNOMED Code(s): 26564156 (8) Moderate major depression Current Visit: No Status: Acute Code(s): F32.1 - MAJOR DEPRESSIVE DISORDER, SINGLE EPISODE, MODERATE SNOMED Code(s): 318640 (9) Lumbar and sacral spondyloarthritis Current Visit: No Status: Chronic Code(s): M48.9 - SPONDYLOPATHY, UNSPECIFIED SNOMED Code(s): 675969888 (10) Lumbar radiculopathy, chronic Current Visit: No Status: Chronic Code(s): M54.16 - RADICULOPATHY, LUMBAR REGION SNOMED Code(s): 036184292 (11) Asthma Current Visit: Yes Status: Acute Code(s): J45.909 - UNSPECIFIED ASTHMA, UNCOMPLICATED SNOMED Code(s): 694119706 This is a pleasant 49-year-old female, patient of my partners, Dr. Connor King. She reports chest pressure on and off over the past several days. ER visit was prompted after she had woken up and had trouble speaking and paresthesias to her right side of the face. She is dealing with a bad tooth and dental caries on the right lower mandible area. She recently underwent a filling, however it appears to failed. She indicates that her chest pressure symptoms lasted minutes to hours. The facial paresthesia and trouble speaking only lasted a few moments initially on waking up. She has a great deal of trouble remembering things and she had an episode of status epilepticus that left her with short-term memory loss. Her indicates that she is unsure about taking some of her medications and that she possibly run out of her blood pressure pill and not restarted. She denies any shortness of breath, nausea or vomiting. She does have a history of type 2 diabetes, hyperlipidemia. My partner and ordered an outpatient stress test for her just recently. Evaluated by cardiology and neurology. Outpatient stress test recommended. Maintain on IV antibiotics. Neurology workup completed including carotid Doppler reporting no hemodynamic significant stenosis. Maintained on aspirin 81 mg. Lipids well controlled, continued on fenofibrate. Cleared by all consults for discharge. Patient advised to follow up this week with her dentist. Signi ficant clinical improvement. Patient is being discharged home in a stable condition with her prognosis. GENERAL: Alert and oriented 3, no acute distress LUNGS: Breath sounds clear to auscultation bilaterally and equal. No wheezes rales or rhonchi. HEART: Regular rate and rhythm without murmurs, rubs or gallops.S1S2 Normal ABDOMEN: Soft, nontender, normoactive bowel sounds. No guarding, no rebound. No masses appreciated. NEUROLOGICAL: Cranial nerves II through XII grossly intact. Normal speech, normal gait. The impression and plan of care has been dictated as directed. : I performed a history and examination of this patient, discussed the same with the dictator. I agree with the dictator's note ,documented as a scribe. Any additional findings or plans will be noted. Patient Condition at Discharge: Stable Plan - Discharge Summary Discharge Rx Participant: No New Discharge Prescriptions: New Cephalexin [Keflex] 500 mg PO Q8HR #21 cap Cyclobenzaprine [Flexeril] 5 mg PO BID PRN #10 tab PRN Reason: Muscle Spasm Aspirin EC [Ecotrin Low Dose] 81 mg PO DAILY #1 tablet. Lactobacillus Acidophilus [Acidophilus] 1 each PO BID #15 tablet Continue Docusate Sodium [Dulcolax Stool Softener] 100 mg PO HS PRN PRN Reason: Constipation Omeprazole [PriLOSEC] 20 mg PO BID Albuterol Inhaler [Ventolin Hfa Inhaler] 2 puff INHALATION RT-QID PRN PRN Reason: sob Verapamil HCl [Verapamil ER] 120 mg PO QAM Prochlorperazine [Compazine] 10 mg PO BID OXcarbazepine [Oxtellar Xr] 900 mg PO QAM Fenofibrate 160 mg PO HS Azelastine HCl [Optivar 0.05% Ophth Soln] 1 drop BOTH EYES DAILY Cetirizine HCl 10 mg PO DAILY Gabapentin 600 mg PO TID metFORMIN HCL [metFORMIN HCL ER] 500 mg PO BID Famotidine [Pepcid] 40 mg PO DAILY HYDROcodone/APAP 10-325MG [[place] 10-325] 1 tab PO TID Lidocaine 2% Gel [Xylocaine Jelly 2%] 1 applic TOPICAL BID Albuterol Nebulized [Ventolin Nebulized] 2.5 mg INHALATION RT-QID PRN PRN Reason: Shortness Of Breath Citalopram Hydrobromide [CeleXA] 20 mg PO DAILY Oxybutynin ER [Ditropan Xl] 15 mg PO DAILY clonazePAM [KlonoPIN] 2 mg PO DAILY Meloxicam [Mobic] 15 mg PO DAILY PRN PRN Reason: Pain Butalb/APAP/Caff 50-325-40Mg [Fioricet 50-325-40] 1 tab PO Q8H PRN PRN Reason: Migraine Headache Chlorhexidine Gluconate [Peridex] 15 ml PO BID Discontinued Amoxicillin 500 mg PO Q8HR Discharge Medication List Docusate Sodium [Dulcolax Stool Softener] 100 mg PO HS PRN 03/03/14 [History] Omeprazole [PriLOSEC] 20 mg PO BID 04/03/14 [History] Albuterol Inhaler [Ventolin Hfa Inhaler] 2 puff INHALATION RT-QID PRN 11/23/14 [History] Azelastine HCl [Optivar 0.05% Ophth Soln] 1 drop BOTH EYES DAILY 06/12/16 [History] Fenofibrate 160 mg PO HS 06/12/16 [History] OXcarbazepine [Oxtellar Xr] 900 mg PO QAM 06/12/16 [History] Prochlorperazine [Compazine] 10 mg PO BID 06/12/16 [History] Verapamil HCl [Verapamil ER] 120 mg PO QAM 06/12/16 [History] Cetirizine HCl 10 mg PO DAILY 05/01/17 [History] Gabapentin 600 mg PO TID 06/07/18 [History] metFORMIN HCL [metFORMIN HCL ER] 500 mg PO BID 06/07/18 [History] Famotidine [Pepcid] 40 mg PO DAILY 09/19/18 [History] HYDROcodone/APAP 10-325MG [[place] 10-325] 1 tab PO TID 09/19/18 [History] Lidocaine 2% Gel [Xylocaine Jelly 2%] 1 applic TOPICAL BID 02/20/19 [History] Albuterol Nebulized [Ventolin Nebulized] 2.5 mg INHALATION RT-QID PRN 04/07/19 [History] Butalb/APAP/Caff 50-325-40Mg [Fioricet 50-325-40] 1 tab PO Q8H PRN 04/07/19 [History] Chlorhexidine Gluconate [Peridex] 15 ml PO BID 04/07/19 [History] Citalopram Hydrobromide [CeleXA] 20 mg PO DAILY 04/07/19 [History] Meloxicam [Mobic] 15 mg PO DAILY PRN 04/07/19 [History] Oxybutynin ER [Ditropan Xl] 15 mg PO DAILY 04/07/19 [History] clonazePAM [KlonoPIN] 2 mg PO DAILY 04/07/19 [History] Aspirin EC [Ecotrin Low Dose] 81 mg PO DAILY #1 tablet. 04/09/19 [Rx] Cephalexin [Keflex] 500 mg PO Q8HR #21 cap 04/09/19 [Rx] Cyclobenzaprine [Flexeril] 5 mg PO BID PRN #10 tab 04/09/19 [Rx] Lactobacillus Acidophilus [Acidophilus] 1 each PO BID #15 tablet 04/09/19 [Rx] Follow up Appointment(s)/Referral(s): dentistDr. Pt's own [Other] - 1 Week Ephraim Melgar MD [STAFF PHYSICIAN] - 04/25/19 9:00 am Connor King Jr, DO [Primary Care Provider] - 04/11/19 9:15 am (with nurse practitioner) Marisabel Villalta MD [STAFF PHYSICIAN] - 04/25/19 2:30 pm Activity/Diet/Wound Care/Special Instructions: Confirm cardiology follow-up appointment prior to discharge. Discharge Disposition: HOME SELF-CARE
== END 2019-04-09 13:14 | disposition home or self-care (01) ==
LOC: EC 09:48 → 1SOBS 12:54
PROVIDERS: ADMIT Family Medicine; ATTEND Family Medicine
DX: K04.7 Periapical abscess without sinus (principal); R20.2 Paresthesia of skin; R47.1 Dysarthria and anarthria; R29.810 Facial weakness; R41.3 Other amnesia; R20.0 Anesthesia of skin; R53.83 Other fatigue; R07.89 Other chest pain; E11.9 Type 2 diabetes mellitus without complications; I10 Essential (primary) hypertension; F32.1 Major depressive disorder, single episode, moderate; J45.909 Unspecified asthma, uncomplicated; M47.26 Other spondylosis with radiculopathy, lumbar region; M47.818 Spondylosis without myelopathy or radiculopathy, sacral and sacrococcygeal region; E78.5 Hyperlipidemia, unspecified; E66.9 Obesity, unspecified; Z68.34 Body mass index [BMI] 34.0-34.9, adult; G40.401 Other generalized epilepsy and epileptic syndromes, not intractable, with status epilepticus; K21.9 Gastro-esophageal reflux disease without esophagitis; M19.90 Unspecified osteoarthritis, unspecified site; G43.909 Migraine, unspecified, not intractable, without status migrainosus; T46.5X6A Underdosing of other antihypertensive drugs, initial encounter; R61 Generalized hyperhidrosis; F41.9 Anxiety disorder, unspecified; G47.419 Narcolepsy without cataplexy; G89.29 Other chronic pain; G47.33 Obstructive sleep apnea (adult) (pediatric); Z87.19 Personal history of other diseases of the digestive system; K59.00 Constipation, unspecified; N32.81 Overactive bladder; Z87.442 Personal history of urinary calculi; Z87.891 Personal history of nicotine dependence; Z79.84 Long term (current) use of oral hypoglycemic drugs; Z79.899 Other long term (current) drug therapy; Z79.891 Long term (current) use of opiate analgesic; Z79.1 Long term (current) use of non-steroidal anti-inflammatories (NSAID); Z80.49 Family history of malignant neoplasm of other genital organs; Z83.3 Family history of diabetes mellitus; Z80.1 Family history of malignant neoplasm of trachea, bronchus and lung; Z82.49 Family history of ischemic heart disease and other diseases of the circulatory system; Z84.1 Family history of disorders of kidney and ureter; Z88.1 Allergy status to other antibiotic agents; Z88.8 Allergy status to other drugs, medicaments and biological substances; Z91.018 Allergy to other foods; Z90.49 Acquired absence of other specified parts of digestive tract; Z90.710 Acquired absence of both cervix and uterus
CPT/HCPCS: 93005 ×2; 96366 ×3; 96367; 96376 ×2; 96365; 99285; 36415; 94640 ×3; 94760; 93306; 85379; 83880; 80061 ×2; 80053; 80048 ×2; 82607; 82746; 83690; 83735; 84484; 85025 ×3; 85610; 85730 ×2; 87040; 80306; 71046; 93880; 70450; G0378 ×3; S0183 ×3; J1644 ×2; J0696 ×2

== ENCOUNTER → 2019-04-16 | Outpatient (CLI) | payer OTHER ==
--- NOTE | 2019-04-16 09:24 | MM ---
Reason for exam: additional evaluation requested from prior study. Last mammogram was performed 1 year ago. History: Family history of breast cancer in maternal grandmother. Physical Findings: Nurse did not find any significant physical abnormalities on exam. MG Diagnostic Mammo w CAD BREE Bilateral CC and MLO view(s) were taken. Prior study comparison: April 15, 2018, bilateral MG screening mammo w CAD. There are scattered fibroglandular densities. There is no discrete abnormality. These results were verbally communicated with the patient and result sheet given to the patient on 04/16/19. ASSESSMENT: Incomplete: need additional imaging evaluation, BI-RAD 0 RECOMMENDATION: Ultrasound of the right breast. Manage on a clinical basis with regard to patient's clinical symptoms.
--- NOTE | 2019-04-16 09:25 | USB ---
Reason for exam: additional evaluation requested from abnormal screening. History: Family history of breast cancer in maternal grandmother. US Breast Axilla RT Right breast axilla ultrasound is negative. These results were verbally communicated with the patient and result sheet given to the patient on 04/16/19. ASSESSMENT: Negative, BI-RAD 1 RECOMMENDATION: Routine screening mammogram of both breasts in 1 year. Manage on a clinical basis with regard to patient's symptoms.
== END | disposition home or self-care (01) ==
LOC: RADMAMWWP 07:19
PROVIDERS: ATTEND Family Medicine
DX: N64.52 Nipple discharge (principal)
CPT/HCPCS: 77066

== ENCOUNTER 2019-04-21 18:58 | Emergency (ER) | payer OTHER ==
[2019-04-21 19:09] VITALS: RESP 18
[2019-04-21] MEDS ORDERED: SODIUM CHLORIDE 0.9% 1,000 ML IV STA (19:28)
[2019-04-21] MEDS ORDERED: KETOROLAC 30 MG/ML 1 ML VIAL IVP STA (19:28)
[2019-04-21] MEDS ORDERED: diphenhydrAMINE 50 MG/ML 1 ML VIAL IVP STA (19:29)
[2019-04-21] MEDS ORDERED: METOCLOPRAMIDE 5 MG/ML 2 ML VIAL IVP STA (19:29)
[2019-04-21] MEDS ORDERED: FAMOTIDINE 20 MG/2 ML VIAL IV STA (19:29)
--- NOTE | 2019-04-21 19:54 | ED ---
Abdominal Pain HPI - General Chief Complaint: Abdominal Pain Stated Complaint: Vomiting/fever Time Seen by Provider: 04/21/19 19:11 Source: patient Mode of arrival: wheelchair Limitations: no limitations - History of Present Illness Initial Comments: 49-year-old female patient presents to the emergency department today for evaluation of vomiting and burning abdominal pain. Patient states that she had a tooth removed today. States she has been taking amoxicillin for the last couple of weeks for an infected tooth. States they continued the antibiotic today. States that since having the tooth removed she has been having frequent episodes of vomiting. Patient states that she has been having a "burning" sensation in her body especially her abdomen for the last four days. She has not had elevated temperatures. She denies any diarrhea or constipation. Patient did have a TIA a couple of weeks ago. States she has been having intermittent chest pain and sweats since then. Patient denies any recent rash, shortness breath, back pain, numbness, tingling, dizziness, weakness, hematuria, dysuria, urinary urgency, urinary frequency, headache, visual changes, or any other complaints. - Related Data Home Medications Medication Instructions Recorded Confirmed Docusate Sodium [Dulcolax Stool 100 mg PO HS PRN 03/03/14 04/21/19 Softener] Omeprazole [PriLOSEC] 20 mg PO BID 04/03/14 04/21/19 Albuterol Inhaler [Ventolin Hfa 2 puff INHALATION RT-QID PRN 11/23/14 04/21/19 Inhaler] Azelastine HCl [Optivar 0.05% 1 drop BOTH EYES DAILY 06/12/16 04/21/19 Ophth Soln] Fenofibrate 160 mg PO HS 06/12/16 04/21/19 OXcarbazepine [Oxtellar Xr] 900 mg PO QAM 06/12/16 04/21/19 Prochlorperazine [Compazine] 10 mg PO TID PRN 06/12/16 04/21/19 Verapamil HCl [Verapamil ER] 120 mg PO QAM 06/12/16 04/21/19 Cetirizine HCl 10 mg PO DAILY 05/01/17 04/21/19 Gabapentin 600 mg PO TID 06/07/18 04/21/19 metFORMIN HCL [metFORMIN HCL ER] 500 mg PO BID 06/07/18 04/21/19 Famotidine [Pepcid] 40 mg PO DAILY 09/19/18 04/21/19 HYDROcodone/APAP 10-325MG [Ethel 1 tab PO TID 09/19/18 04/21/19 10-325] Lidocaine 2% Gel [Xylocaine Jelly 1 applic TOPICAL BID 02/20/19 04/21/19 2%] Albuterol Nebulized [Ventolin 2.5 mg INHALATION RT-QID PRN 04/07/19 04/21/19 Nebulized] Butalb/APAP/Caff 50-325-40Mg 1 tab PO Q8H PRN 04/07/19 04/21/19 [Fioricet 50-325-40] Chlorhexidine Gluconate [Peridex] 15 ml PO BID 04/07/19 04/21/19 Citalopram Hydrobromide [CeleXA] 20 mg PO DAILY 04/07/19 04/21/19 Meloxicam [Mobic] 15 mg PO DAILY PRN 04/07/19 04/21/19 Oxybutynin ER [Ditropan Xl] 15 mg PO DAILY 04/07/19 04/21/19 Lidocaine 4% Cream [Lmx 4] 1 applic TOPICAL BID 04/21/19 04/21/19 Losartan [Cozaar] 50 mg PO DAILY 04/21/19 04/21/19 Phentermine HCl [Adipex-P] 37.5 mg PO DAILY 04/21/19 04/21/19 Previous Rx's Medication Instructions Recorded L.acidoph,Paracasei, B.lactis 1 each PO BID #60 capsule 04/21/19 [Probiotic] Metoclopramide [Reglan] 10 mg PO Q8H PRN #10 tab 04/21/19 Allergies Allergy/AdvReac Type Severity Reaction Status Date / Time azithromycin Allergy Swelling Verified 04/21/19 20:01 [From Zithromax Z-Brayden] ondansetron HCl Allergy Vomiting Verified 04/21/19 20:01 [From Zofran (as hydrochloride)] onion Allergy Swelling Verified 04/21/19 20:01 Review of Systems ROS Statement: Those systems with pertinent positive or pertinent negative responses have been documented in the HPI. ROS Other: All systems not noted in ROS Statement are negative. Past Medical History Past Medical History: Asthma, CVA/TIA, Diabetes Mellitus, GERD/Reflux, Hyperlipidemia, Hypertension, Osteoarthritis (OA), Seizure Disorder, Sleep Apnea/CPAP/BIPAP Additional Past Medical History / Comment(s): Current R elbow fracture and L wrist fracture with casts removed d/t clausterphobia/now wears splints, NIDDM type II, chronic low back pain with occasional bilateral sciatica, shattered tailbone, chronic cervical pain/spurs on r side of neck, 2017 grand mal seizure with comprehension issues/loss of memory ever since, "black outs" with no known cause, TILA with no device, diverticulitis/colitis with bowel resection, constipation, overactive bladder, kidney stones. History of Any Multi-Drug Resistant Organisms: None Reported Past Surgical History: Appendectomy, Bowel Resection, Cholecystectomy, Heart Catheterization, Hysterectomy, Orthopedic Surgery, Tubal Ligation, Uterine Ablation Additional Past Surgical History / Comment(s): Bowel resection for colitis/diverticulitis, EGDs, colonoscopies, loop recorder now removed, multiple pain clinic procedures, bilateral rotator cuff surgery, R hand ganglion cyst removed 3 times, tilt table test, MRI with anesthesia d/t clausterphobia. Past Anesthesia/Blood Transfusion Reactions: No Reported Reaction Type of Cardiac Device: Loop Device Placement Date:: MAR 2009 AND 2013 Past Psychological History: Anxiety Smoking Status: Former smoker Past Alcohol Use History: None Reported Past Drug Use History: None Reported - Past Family History Mother Family Medical History: Cancer, Diabetes Mellitus Additional Family Medical History / Comment(s): Uterine cancer. Mother is living. Father Family Medical History: Cancer, Diabetes Mellitus, Hyperlipidemia, Hypertension, Renal Disease Additional Family Medical History / Comment(s): L lung cancer found post mortem. from renal failure. General Exam Limitations: no limitations General appearance: alert, in no apparent distress, other (Physical well- developed, well-nourished adult female patient in no acute distress. Vital signs upon presentation are temperature 97.3F, pulse 82, respirations 18, blood pressure 123/89, pulse ox 99% on room air.) Eye exam: Present: normal appearance, PERRL, EOMI. Absent: scleral icterus, conjunctival injection, periorbital swelling ENT exam: Present: normal exam, normal oropharynx, mucous membranes moist Respiratory exam: Present: normal lung sounds bilaterally. Absent: respiratory distress, wheezes, rales, rhonchi, stridor Cardiovascular Exam: Present: regular rate, normal rhythm, normal heart sounds. Absent: systolic murmur, diastolic murmur, rubs, gallop, clicks GI/Abdominal exam: Present: soft, tenderness (Epigastric), normal bowel sounds. Absent: distended, guarding, rebound, rigid Neurological exam: Present: alert, oriented X3, CN II-XII intact Psychiatric exam: Present: normal affect, normal mood Skin exam: Present: warm, dry, intact, normal color. Absent: rash Course Vital Signs 04/21/19 04/21/19 04/21/19 19:04 21:15 22:50 Temperature 97.3 F L 98 F Pulse Rate 82 90 Respiratory 18 18 Rate Blood Pressure 123/89 123/83 O2 Sat by Pulse 99 94 L Oximetry Medical Decision Making - Medical Decision Making 49-year-old female patient presents to the emergency department today for evaluation of abdominal pain and vomiting. Patient is also experiencing intermittent chest pain for the last 2 weeks. She had a tooth removed today. Physical examination reveals generalized abdominal tenderness. Labs reviewed a nd were unremarkable. KUB and chest x-ray were unremarkable. Upon reevaluation patient still reporting increasing abdominal pain. Abdomen remained tender. Patient is concerned she may have flareup of diverticulitis. CT abdomen and pelvis was obtained and showed no acute abnormalities. Patient has been on antibiotics for a prolonged period of time. She is instructed to take probiotic with these antibiotics. She is given a prescription for nausea medication. She is instructed to follow-up with her primary care physician for recheck in 1-2 days. Return parameters discussed in detail. She verbalizes understanding and agrees with this plan. - Lab Data Result diagrams: 04/21/19 19:51 04/21/19 19:51 Lab Results 04/21/19 04/21/19 04/21/19 Range/Units 19:51 19:51 19:51 WBC 8.9 (3.8-10.6) k/uL RBC 4.60 (3.80-5.40) m/uL Hgb 14.7 (11.4-16.0) gm/dL Hct 41.8 (34.0-46.0) % MCV 90.8 D (80.0-100.0) fL MCH 31.9 (25.0-35.0) pg MCHC 35.1 (31.0-37.0) g/dL RDW 12.5 (11.5-15.5) % Plt Count 337 (150-450) k/uL Neutrophils % 75 % Lymphocytes % 17 % Monocytes % 4 % Eosinophils % 1 % Basophils % 1 % Neutrophils # 6.7 (1.3-7.7) k/uL Lymphocytes # 1.6 (1.0-4.8) k/uL Monocytes # 0.4 (0-1.0) k/uL Eosinophils # 0.1 (0-0.7) k/uL Basophils # 0.1 (0-0.2) k/uL PT 11.5 (9.0-12.0) sec INR 1.1 (<1.2) APTT 28.2 (22.0-30.0) sec Sodium 138 (137-145) mmol/L Potassium 4.2 (3.5-5.1) mmol/L Chloride 102 (98-107) mmol/L Carbon Dioxide 24 (22-30) mmol/L Anion Gap 12 mmol/L BUN 14 (7-17) mg/dL Creatinine 0.70 (0.52-1.04) mg/dL Est GFR (CKD-EPI)AfAm >90 (>60 ml/min/1.73 sqM) Est GFR (CKD-EPI)NonAf >90 (>60 ml/min/1.73 sqM) Glucose 96 (74-99) mg/dL Calcium 10.2 (8.4-10.2) mg/dL Total Bilirubin 0.4 (0.2-1.3) mg/dL AST 26 (14-36) U/L ALT 29 (9-52) U/L Alkaline Phosphatase 45 (38-126) U/L Troponin I (0.000-0.034) ng/mL Total Protein 8.8 H (6.3-8.2) g/dL Albumin 5.0 (3.5-5.0) g/dL Amylase 64 (30-110) U/L Lipase 54 (23-300) U/L Urine Color Urine Appearance (Clear) Urine pH (5.0-8.0) Ur Specific Malcolm (1.001-1.035) Urine Protein (Negative) Urine Glucose (UA) (Negative) Urine Ketones (Negative) Urine Blood (Negative) Urine Nitrite (Negative) Urine Bilirubin (Negative) Urine Urobilinogen (<2.0) mg/dL Ur Leukocyte Esterase (Negative) Urine RBC (0-5) /hpf Urine WBC (0-5) /hpf Ur Squamous Epith Cells (0-4) /hpf Urine Mucus (None) /hpf 04/21/19 04/21/19 Range/Units 19:51 20:12 WBC (3.8-10.6) k/uL RBC (3.80-5.40) m/uL Hgb (11.4-16.0) gm/dL Hct (34.0-46.0) % MCV (80.0-100.0) fL MCH (25.0-35.0) pg MCHC (31.0-37.0) g/dL RDW (11.5-15.5) % Plt Count (150-450) k/uL Neutrophils % % Lymphocytes % % Monocytes % % Eosinophils % % Basophils % % Neutrophils # (1.3-7.7) k/uL Lymphocytes # (1.0-4.8) k/uL Monocytes # (0-1.0) k/uL Eosinophils # (0-0.7) k/uL Basophils # (0-0.2) k/uL PT (9.0-12.0) sec INR (<1.2) APTT (22.0-30.0) sec Sodium (137-145) mmol/L Potassium (3.5-5.1) mmol/L Chloride (98-107) mmol/L Carbon Dioxide (22-30) mmol/L Anion Gap mmol/L BUN (7-17) mg/dL Creatinine (0.52-1.04) mg/dL Est GFR (CKD-EPI)AfAm (>60 ml/min/1.73 sqM) Est GFR (CKD-EPI)NonAf (>60 ml/min/1.73 sqM) Glucose (74-99) mg/dL Calcium (8.4-10.2) mg/dL Total Bilirubin (0.2-1.3) mg/dL AST (14-36) U/L ALT (9-52) U/L Alkaline Phosphatase (38-126) U/L Troponin I <0.012 (0.000-0.034) ng/mL Total Protein (6.3-8.2) g/dL Albumin (3.5-5.0) g/dL Amylase (30-110) U/L Lipase (23-300) U/L Urine Color Yellow Urine Appearance Cloudy H (Clear) Urine pH 8.0 (5.0-8.0) Ur Specific Malcolm 1.028 (1.001-1.035) Urine Protein 3+ H (Negative) Urine Glucose (UA) Negative (Negative) Urine Ketones 1+ H (Negative) Urine Blood Negative (Negative) Urine Nitrite Negative (Negative) Urine Bilirubin Negative (Negative) Urine Urobilinogen 2.0 (<2.0) mg/dL Ur Leukocyte Esterase Negative (Negative) Urine RBC 2 (0-5) /hpf Urine WBC 6 H (0-5) /hpf Ur Squamous Epith Cells 10 H (0-4) /hpf Urine Mucus Few H (None) /hpf - EKG Data -: EKG Interpreted by Nm EKG Comments: EKG obtained at 1938 shows normal sinus rhythm with sinus arrhythmia. Ventricular rate is 78, KS interval 144, QRS duration 78, QT 392, QTc 446. No evidence of ST elevation or depression. - Radiology Data Radiology results: report reviewed, image reviewed Two-view x-ray of the chest is obtained. Report was reviewed in its entirety. Impression by Dr. Langston shows normal chest. No change. KUB x-rays obtained. Report was reviewed in its entirety. Impression by Dr. Langston shows nonacute abdomen. CT abdomen and pelvis with contrast is obtained. Report was reviewed in its entirety. Impression by Dr. Langston shows no sign of acute abdomen and pelvis. Colonic diverticulosis without acute diverticulitis. No adverse change compared to old exam. Disposition Clinical Impression: Abdominal pain, Vomiting Disposition: HOME SELF-CARE Condition: Good Instructions (If sedation given, give patient instructions): Acute Nausea and Vomiting (ED), Abdominal Pain (ED) Additional Instructions: Take medication as directed. Start taking probiotic with the antibiotic, these are available over the counter. Follow up with your primary care physician for recheck in 1-2 days. Return to the emergency department for any new, worsening, or concerning symptoms. Prescriptions: L.acidoph,Paracasei, B.lactis [Probiotic] 1 each PO BID #60 capsule Metoclopramide [Reglan] 10 mg PO Q8H PRN #10 tab PRN Reason: Vomiting Is patient prescribed a controlled substance at d/c from ED?: No Referrals: Connor King Jr, [Primary Care Provider] - 1-2 days Time of Disposition: 22:38
[2019-04-21 19:59] LABS: Basophils # (A) 0.1 k/uL (0-0.2); Basophils % (A) 1 %; Eosinophils # (A) 0.1 k/uL (0-0.7); Eosinophils % (A) 1 %; HCT 41.8 % (34.0-46.0); HGB 14.7 gm/dL (11.4-16.0); Lymphocytes # (A) 1.6 k/uL (1.0-4.8); Lymphocytes % (A) 17 %; MCH 31.9 pg (25.0-35.0); MCHC 35.1 g/dL (31.0-37.0); Mean Platelet Volume 5.9; Monocytes # (A) 0.4 k/uL (0-1.0); Monocytes % (A) 4 %; Neutrophils # (A) 6.7 k/uL (1.3-7.7); Neutrophils % (A) 75 %; Platelet Count 337 k/uL (150-450); RDW 12.5 % (11.5-15.5); WBC 8.9 k/uL (3.8-10.6)
--- NOTE | 2019-04-21 20:03 | XR ---
EXAMINATION TYPE: XR chest 2V DATE OF EXAM: 04/21/2019 COMPARISON: 04/07/2019 HISTORY: Fever TECHNIQUE: Frontal and lateral views of the chest are obtained. FINDINGS: Heart and mediastinum are normal. Lungs are clear. Diaphragm is normal. Bony thorax appear s normal. IMPRESSION: Normal chest. No change.
[2019-04-21 20:05] LABS: MCV 90.8 fL (80.0-100.0)
--- NOTE | 2019-04-21 20:05 | XR ---
EXAMINATION TYPE: XR KUB DATE OF EXAM: 04/21/2019 COMPARISON: NONE HISTORY: Fever TECHNIQUE: Single view FINDINGS: 2 views upright show no sign of intestinal obstruction or pneumoperitoneum. Fecal pattern i s normal. There is no evidence of a mass. There are clips from cholecystectomy. Lung bases are clear. There are no pathologic calcifications over the kidneys. IMPRESSION: Nonacute abdomen.
[2019-04-21 20:11] LABS: INR 1.1 (<1.2); Partial Thromboplastin Time 28.2 sec (22.0-30.0); Prothrombin Time 11.5 sec (9.0-12.0)
[2019-04-21 20:17] LABS: Anion Gap 12 mmol/L; Blood Urea Nitrogen 14 mg/dL (7-17); Carbon Dioxide 24 mmol/L (22-30); Chloride 102 mmol/L (98-107); Glucose 96 mg/dL (74-99); Potassium 4.2 mmol/L (3.5-5.1); Sodium 138 mmol/L (137-145)
[2019-04-21 20:18] LABS: ALT 29 U/L (9-52); AST 26 U/L (14-36); African American GFR (CKD) >90 (>60 ml/min/1.73 sqM); Alkaline Phosphatase 45 U/L (38-126); Amylase 64 U/L (30-110); Calcium 10.2 mg/dL (8.4-10.2); Total Bilirubin 0.4 mg/dL (0.2-1.3); Total Protein 8.8 g/dL (6.3-8.2)
[2019-04-21 20:27] LABS: Appearance,Urine Cloudy (Clear); Bilirubin,Urine Negative (Negative); Blood,Urine Negative (Negative); Color,Urine Yellow; Glucose,Urine (UA) Negative (Negative); Ketones,Urine 1+ (Negative); Leukocyte Esterase,Urine Negative (Negative); Mucus,Urine Few /hpf; Nitrite,Urine Negative (Negative); Protein,Urine 3+ (Negative); RBC,Urine 2 /hpf (0-5); Specific Gravity,Urine 1.028 (1.001-1.035); Squamous Epithelial Cell,Urine 10 /hpf (0-4); WBC,Urine 6 /hpf (0-5)
[2019-04-21] MEDS ORDERED: MAG HYDROX/AL HYDROX/SIMETH 30 ML, HYOSCYAMINE ELIXIR 10 ML, LIDOCAINE VISCOUS 2% 10 ML PO STA ×3 (21:06)
[2019-04-21] MEDS ORDERED: HYDROmorphone 0.5 MG/0.5 ML SYRINGE IVP STA (21:06)
[2019-04-21] MEDS ORDERED: SODIUM CHLORIDE 0.9% 500 ML 500 ML IV ONE (21:07)
[2019-04-21 21:16] VITALS: BP 123/83; PULSE 90
[2019-04-21] MEDS ORDERED: HYDROmorphone 2 MG/ML 1 ML SYRINGE IVP STA (21:55)
--- NOTE | 2019-04-21 22:32 | CT ---
EXAMINATION TYPE: CT abdomen pelvis w con DATE OF EXAM: 04/21/2019 COMPARISON: 09/22/2018 HISTORY: Abdominal pain, vomiting and fever after having a tooth pulled today. CT DLP: 1231.5 mGycm Automated exposure control for dose reduction was used. TECHNIQUE: Helical acquisition of images was performed from the lung bases through the pelvis. CONTRAST: Performed without Oral Contrast and with IV Contrast, patient injected with 100ml mL of Isovue 300. FINDINGS: Lung bases are clear. There is no pleural effusion. Heart size is normal. There is no pericardial eff usion. There is small hiatal hernia. The remainder of the stomach appears normal. There are clips fro m cholecystectomy. Liver spleen pancreas appear normal. Bile ducts are not dilated. There is no adrenal mass. Kidneys show satisfactory contrast opacification. There is no hydronephrosi s. There is no inguinal hernia. Ureters are not dilated. Bladder distends smoothly. Uterus is antever rl. There is no free fluid in the pelvis. There is no mesenteric edema. There are numerous diverticula throughout the colon. Appendix is not se en. There is no sign of thickened appendix. There is previous surgery at the sigmoid colon. Lumbar vertebra have normal alignment. Disc spaces are fairly normal. There is no compression fractur e. Bony pelvis appears intact. IMPRESSION: NO SIGN OF ACUTE ABDOMEN AND PELVIS. COLONIC DIVERTICULOSIS WITHOUT DIVERTICULITIS. NO ADVERSE CHANGE COMPARED TO OLD EXAM.
[2019-04-21 22:51] VITALS: TEMP 98
== END 2019-04-21 22:53 | disposition home or self-care (01) ==
LOC: EC 18:58
DX: R10.9 Unspecified abdominal pain (principal); R11.10 Vomiting, unspecified; R50.9 Fever, unspecified; J45.909 Unspecified asthma, uncomplicated; E11.9 Type 2 diabetes mellitus without complications; I10 Essential (primary) hypertension; K21.9 Gastro-esophageal reflux disease without esophagitis; F41.9 Anxiety disorder, unspecified; G47.30 Sleep apnea, unspecified; Z79.84 Long term (current) use of oral hypoglycemic drugs; Z79.1 Long term (current) use of non-steroidal anti-inflammatories (NSAID); Z79.899 Other long term (current) drug therapy; Z88.1 Allergy status to other antibiotic agents; Z88.8 Allergy status to other drugs, medicaments and biological substances; Z91.018 Allergy to other foods; Z87.891 Personal history of nicotine dependence; Z86.73 Personal history of transient ischemic attack (TIA), and cerebral infarction without residual deficits
CPT/HCPCS: 36415; 93005; 80053; 82150; 83690; 84484; 85025; 85610; 85730; 81001; 71046; 74018; 74177; 99284; 96374; 96375 ×4; 96376; 96361 ×2; J1170 ×2; J1200; J2765; J1885; Q9967

== ENCOUNTER → 2019-05-19 | Outpatient (CLI) | payer OTHER ==
[2019-05-19 12:54] VITALS: BP 145/94; PULSE 84; RESP 16
--- NOTE | 2019-05-19 13:08 | P.PAINPG ---
Subjective Progress Note Date: 05/19/19 This is a follow-up visit for this [id number] female with a chronic history of neck pain and low back pain, diagnosed with lumbar spondylosis and lumbar degenerative disc disease and sacroiliitis, recently we have done RFA on the right sacroiliac joint which helped her low back pain significantly, currently she reported that most of her pain in the low back area on the left side, with radiation to the left buttock area, she denies any motor or sensory deficit she denies any fever or night sweats with and she reported, that she continue to use the Neurontin 600 mg 3 times a day Mobic 15 mg daily and [place] 10/325 every 6 hours when necessary, she is getting prescription refill from her primary care, she denies any side effects of the medication and she thought the current medication is helping to control her pain. Objective - Vital Signs Vital signs: Vital Signs Temp Pulse 84 05/19/19 12:52 Resp 16 05/19/19 12:52 BP 145/94 05/19/19 12:52 Pulse Ox 97 05/19/19 12:52 - Exam Physical Examinations : -Constitutiona : Cooperative , not in acute distress . -HEENT : nech : supple , no Lymphadenopathy , normal thyroid size . : eyes : no ptosis , no icterus, no photophobia . - neurologic : Cranial nerve II to XII intact , no focal neurological deffecit . -psychatric : alert , oriented X 3 , appropriate affect , intact judgment and insight . -Lymphatic : no Lymphadenopathy . - musculoskeltal : Lumber spine moter stegnth lower extremities ,thigh and legs 5/5 Right side , 5/5 Left side deep tendon reflexes : normal Knee Jerk , normal ankle Jerk lumber facet Loading Test =positive Right , positive Left Range of motion of the lumbar spine Flexion 30 degrees, extension 10 degrees strait leg raising test = negative bilaterally Fabere test= negative bilaterally Sever tenderness over the Sacroiliac joint on the Left sides Gaenslen test= positive left . Seated flexion test= positive Left . Assessment and Plan Plan: Assessment and plan=1 Below back pain secondary to lumbar spondylosis with lumbar facet arthropathy, and bilateral sacroiliitis, patient had a good result after RFA of the right sacroiliac joint, currently most of the pain is coming from the left sacroiliac joint etiology , patient could benefit from left-sided sacroiliac joint steroid injection under fluoroscopy guidance, procedure risk and benefit and alternatives discussed with the patient she agreed with proceeding, also patient could benefit from lidocaine gel 4% to be applied to the sacroiliac joint area twice a day, patient will continue to get prescription refill for her medication Neurontin 600 mg 3 times a day [place] 10/325 every 6 hours when necessary and Mobic 15 mg daily she is given prescription refills from her primary care. Time with Patient: Less than 30 PQRS Measure Charge Sheet Measure #130: Documentation of Current Meds in Medical Chart: Patient's medications documented in chart Measure #226: Tobacco Use: Screen & Cessation Intervention: Pt screened for tobacco use AND intervention given Measure #111: Pneumonia Vaccination: Pneumococcal vaccine administered or previously received Measure #47: Advance Care Plan: Advance care planning discussed & documented, pt chose/unable to give Measure #412: Opioid Treatment Agreement: No documentation of signed opioid treatment agreement Measure #408: Opioid Therapy Follow-up Evaluation: Patient had NO f/u eval minimum every 3 months during opioid therapy Measure #317: Preventitive Care & Scrn High Bld Press & F/U: Pre-hypertensive or hypertensive BP documented, pt will f/u with PCP Measure #128: Body Mass Index (BMI) Screening & Follow-up: BMI documented ABOVE normal parameters - f/u documented Measure #131: Pain Assessment & Follow-up: Pain positive & plan documented, Follow-up scheduled Measure #431: Unhealthy Alcohol Use Preventative Care & Scrn: Patient not ident ified as an unhealthy alcohol user PQRS Narrative: Smoking Status Former smoker Blood Pressure 145/94 Pain Intensity [Left Back] 6 Pain Intensity [Right Buttock] 6 Scale Used Numeric (1 - 10) Hx Alcohol Use (MH) No Home Medications: Ambulatory Orders Docusate Sodium [Dulcolax Stool Softener] 100 mg PO HS PRN 03/03/14 Omeprazole [PriLOSEC] 20 mg PO BID 04/03/14 Albuterol Inhaler [Ventolin Hfa Inhaler] 2 puff INHALATION RT-QID PRN 11/23/14 Azelastine HCl [Optivar 0.05% Ophth Soln] 1 drop BOTH EYES DAILY 06/12/16 Fenofibrate 160 mg PO HS 06/12/16 OXcarbazepine [Oxtellar Xr] 900 mg PO QAM 06/12/16 Prochlorperazine [Compazine] 10 mg PO TID PRN 06/12/16 Verapamil HCl [Verapamil ER] 120 mg PO QAM 06/12/16 Cetirizine HCl 10 mg PO DAILY 05/01/17 Gabapentin 600 mg PO TID 06/07/18 metFORMIN HCL [metFORMIN HCL ER] 500 mg PO BID 06/07/18 Famotidine [Pepcid] 40 mg PO DAILY 09/19/18 HYDROcodone/APAP 10-325MG [[place] 10-325] 1 tab PO TID 09/19/18 Lidocaine 2% Gel [Xylocaine Jelly 2%] 1 applic TOPICAL BID 02/20/19 Albuterol Nebulized [Ventolin Nebulized] 2.5 mg INHALATION RT-QID PRN 04/07/19 Butalb/APAP/Caff 50-325-40Mg [Fioricet 50-325-40] 1 tab PO Q8H PRN 04/07/19 Chlorhexidine Gluconate [Peridex] 15 ml PO BID 04/07/19 Citalopram Hydrobromide [CeleXA] 20 mg PO DAILY 04/07/19 Meloxicam [Mobic] 15 mg PO DAILY PRN 04/07/19 Oxybutynin ER [Ditropan Xl] 15 mg PO DAILY 04/07/19 L.acidoph,Paracasei, B.lactis [Probiotic] 1 each PO BID #60 capsule 04/21/19 Lidocaine 4% Cream [Lmx 4] 1 applic TOPICAL BID 04/21/19 Losartan [Cozaar] 50 mg PO DAILY 04/21/19 Metoclopramide [Reglan] 10 mg PO Q8H PRN #10 tab 04/21/19 Phentermine HCl [Adipex-P] 37.5 mg PO DAILY 04/21/19 Aspirin [Adult Low Dose Aspirin EC] 81 mg PO DAILY 05/19/19 Controlled Substance Measures - Controlled Substance Measures Is patient prescribed a controlled substance at discharge?: No
== END | disposition home or self-care (01) ==
LOC: PNWHC3 11:49
PROVIDERS: ATTEND Specialist
DX: M47.816 Spondylosis without myelopathy or radiculopathy, lumbar region (principal); M46.96 Unspecified inflammatory spondylopathy, lumbar region; M46.1 Sacroiliitis, not elsewhere classified; Z98.890 Other specified postprocedural states; Z87.891 Personal history of nicotine dependence; Z79.84 Long term (current) use of oral hypoglycemic drugs; Z79.891 Long term (current) use of opiate analgesic; Z79.1 Long term (current) use of non-steroidal anti-inflammatories (NSAID); Z79.82 Long term (current) use of aspirin; Z79.899 Other long term (current) drug therapy
CPT/HCPCS: 99211

== ENCOUNTER → 2019-06-12 | Outpatient (CLI) | payer OTHER ==
[2019-06-12 17:45] LABS: Basophils # (A) 0.1 k/uL (0-0.2); Basophils % (A) 1 %; Eosinophils # (A) 0.3 k/uL (0-0.7); Eosinophils % (A) 4 %; HCT 42.4 % (34.0-46.0); HGB 14.2 gm/dL (11.4-16.0); Lymphocytes % (A) 24 %; MCH 31.2 pg (25.0-35.0); MCHC 33.4 g/dL (31.0-37.0); MCV 93.4 fL (80.0-100.0); Monocytes # (A) 0.5 k/uL (0-1.0); Monocytes % (A) 6 %; Neutrophils # (A) 5.2 k/uL (1.3-7.7); Neutrophils % (A) 63 %; Platelet Count 270 k/uL (150-450); RBC 4.54 m/uL (3.80-5.40); WBC 8.3 k/uL (3.8-10.6)
[2019-06-12 23:14] LABS: African American GFR (CKD) 117.9 (60.0-200.0); Albumin 4.6 g/dL (3.80-4.90); Albumin/Globulin Ratio 1.64 (1.60-3.17); Anion Gap 5.9 mmol/L (4.00-12.00); BUN/Creat Ratio 17.14 Ratio (12.00-20.00); Calcium 9.5 mg/dL (8.7-10.3); Carbon Dioxide 31.1 mmol/L (21.6-31.8); Globulin 2.8 g/dL (1.6-3.3); Non-African American GFR(CKD) 101.7 (60.0-200.0); Total Bilirubin 0.2 mg/dL (0.3-1.2); Total Protein 7.4 g/dL (6.2-8.2)
[2019-06-13 03:33] LABS: Hemoglobin A1C 5.3 % (4.0-6.0)
== END | disposition home or self-care (01) ==
LOC: LABWHC1 17:20
PROVIDERS: ATTEND Nurse Practitioner Family
DX: I10 Essential (primary) hypertension (principal); E11.9 Type 2 diabetes mellitus without complications; B02.9 Zoster without complications
CPT/HCPCS: 36415; 80053; 83036; 85025

== ENCOUNTER → 2019-06-16 | Outpatient (CLI) | payer OTHER | END | disposition home or self-care (01) | LOC: LABWHC1 14:02 | PROVIDERS: ATTEND Nurse Practitioner Family | DX: Z53.9 Procedure and treatment not carried out, unspecified reason (principal) ==

== ENCOUNTER → 2019-06-16 | Outpatient (CLI) | payer OTHER ==
[2019-06-16 09:41] LABS: Basophils # (A) 0.1 k/uL (0-0.2); Basophils % (A) 2 %; Eosinophils # (A) 0.2 k/uL (0-0.7); Eosinophils % (A) 5 %; HCT 41.7 % (34.0-46.0); HGB 14.5 gm/dL (11.4-16.0); Lymphocytes # (A) 1.4 k/uL (1.0-4.8); Lymphocytes % (A) 26 %; MCHC 34.9 g/dL (31.0-37.0); MCV 91.9 fL (80.0-100.0); Mean Platelet Volume 7.1; Monocytes # (A) 0.4 k/uL (0-1.0); Monocytes % (A) 7 %; Neutrophils # (A) 3.1 k/uL (1.3-7.7); Neutrophils % (A) 58 %; Platelet Count 295 k/uL (150-450); RBC 4.53 m/uL (3.80-5.40); RDW 13.1 % (11.5-15.5); WBC 5.4 k/uL (3.8-10.6)
[2019-06-16 09:47] LABS: ALT 23 U/L (4-34); AST 26 U/L (14-36); African American GFR (CKD) >90 (>60 ml/min/1.73 sqM); Albumin 4.7 g/dL (3.5-5.0); Albumin/Globulin Ratio 1.2; Alkaline Phosphatase 65 U/L (38-126); Anion Gap 11 mmol/L; Blood Urea Nitrogen 8 mg/dL (7-17); Carbon Dioxide 29 mmol/L (22-30); Chloride 101 mmol/L (98-107); Globulin 3.8 g/dL; Glucose 79 mg/dL (74-99); Non-African American GFR(CKD) >90 (>60 ml/min/1.73 sqM); Potassium 4.5 mmol/L (3.5-5.1); Sodium 141 mmol/L (137-145); Total Bilirubin 0.5 mg/dL (0.2-1.3); Total Protein 8.5 g/dL (6.3-8.2)
== END ==
LOC: LABWHC1 09:03
PROVIDERS: ATTEND Nurse Practitioner Family
DX: E11.9 Type 2 diabetes mellitus without complications (principal); B95.62 Methicillin resistant Staphylococcus aureus infection as the cause of diseases classified elsewhere; I10 Essential (primary) hypertension
CPT/HCPCS: 36415; 80053; 85025; 87040

== ENCOUNTER 2019-07-21 15:55 | Emergency (ER) | payer OTHER ==
[2019-07-21 16:27] VITALS: TEMP 97.8
[2019-07-21] MEDS ORDERED: KETOROLAC 30 MG/ML 1 ML VIAL IVP STA ×2 (17:10→19:26)
[2019-07-21] MEDS ORDERED: PANTOPRAZOLE 40 MG/10 ML VIAL IVP STA (17:10)
[2019-07-21] MEDS ORDERED: SODIUM CHLORIDE 0.9% 1,000 ML IV STA (17:10)
[2019-07-21] MEDS ORDERED: METOCLOPRAMIDE 5 MG/ML 2 ML VIAL IVP STA (17:12)
[2019-07-21] MEDS ORDERED: diphenhydrAMINE 50 MG/ML 1 ML VIAL IVP STA (17:12)
--- NOTE | 2019-07-21 17:17 | ED ---
Abdominal Pain HPI - General Chief Complaint: Abdominal Pain Stated Complaint: Abd.pain around belly button Time Seen by Provider: 07/21/19 17:03 Source: patient Mode of arrival: ambulatory Limitations: no limitations - History of Present Illness Initial Comments: Patient is a 49-year-old female with history of diverticulitis and colitis presenting to the emergency department with a chief complaint of abdominal pain. Patient states she had a skin infection in the umbilical region that was cultured by her primary care became positive for MRSA. Patient states now the pain has gradually increased in severity even though the infection appears to be healing after taking Bactrim. Patient reports that "her insides are pulling apart". She reports umbilical tenderness that is not exacerbated or alleviated with oral intake. Patient does report having night sweats and chills but never actually obtained a temperature home. Patient does report some nausea over the last several days but denies any vomiting or diarrhea. Patient reports that she spoke with her primary care who adjusted to come to the ED and obtain CT imaging.. Patient denies increased urgency or frequency or dysuria. Denies vaginal symptoms. Patient denies hematuria, hematochezia or melena. Patient does have history of partial colectomy, appendectomy cholecystectomy. Denies chest pain or shortness of breath. Patient does report a lot of back pain but states this is a chronic issue for her and she sees a pain specialist for. - Related Data Home Medications Medication Instructions Recorded Confirmed Docusate Sodium [Dulcolax Stool 100 mg PO HS PRN 03/03/14 07/25/19 Softener] Omeprazole [PriLOSEC] 20 mg PO BID 04/03/14 07/25/19 Albuterol Inhaler [Ventolin Hfa 2 puff INHALATION RT-QID PRN 11/23/14 07/25/19 Inhaler] Azelastine HCl [Optivar 0.05% 1 drop BOTH EYES DAILY 06/12/16 07/25/19 Ophth Soln] Fenofibrate 160 mg PO HS 06/12/16 07/25/19 OXcarbazepine [Oxtellar Xr] 900 mg PO QAM 06/12/16 07/25/19 Prochlorperazine [Compazine] 10 mg PO TID PRN 06/12/16 07/25/19 Verapamil HCl [Verapamil ER] 120 mg PO QAM 06/12/16 07/25/19 Cetirizine HCl 10 mg PO DAILY 05/01/17 07/25/19 Gabapentin 600 mg PO TID 06/07/18 07/25/19 metFORMIN HCL [metFORMIN HCL ER] 500 mg PO BID 06/07/18 07/25/19 Famotidine [Pepcid] 40 mg PO DAILY 09/19/18 07/25/19 HYDROcodone/APAP 10-325MG [[place] 1 tab PO TID 09/19/18 07/25/19 10-325] Lidocaine 2% Gel [Xylocaine Jelly 1 applic TOPICAL BID 02/20/19 07/25/19 2%] Albuterol Nebulized [Ventolin 2.5 mg INHALATION RT-QID PRN 04/07/19 07/25/19 Nebulized] Butalb/APAP/Caff 50-325-40Mg 1 tab PO Q8H PRN 04/07/19 07/25/19 [Fioricet 50-325-40] Chlorhexidine Gluconate [Peridex] 15 ml PO BID 04/07/19 07/25/19 Citalopram Hydrobromide [CeleXA] 20 mg PO DAILY 04/07/19 07/25/19 Meloxicam [Mobic] 15 mg PO DAILY PRN 04/07/19 07/25/19 Oxybutynin ER [Ditropan Xl] 15 mg PO DAILY 04/07/19 07/25/19 Losartan [Cozaar] 50 mg PO DAILY 04/21/19 07/25/19 Aspirin [Adult Low Dose Aspirin EC] 81 mg PO DAILY 05/19/19 07/25/19 Ibuprofen [Motrin] 800 mg PO Q8H 07/02/19 07/25/19 Allergies Allergy/AdvReac Type Severity Reaction Status Date / Time azithromycin Allergy Swelling Verified 07/25/19 15:14 [From Zithromax Z-Brayden] ondansetron HCl Allergy Vomiting Verified 07/25/19 15:14 [From Zofran (as hydrochloride)] onion Allergy Swelling Verified 07/25/19 15:14 Review of Systems ROS Statement: Those systems with pertinent positive or pertinent negative responses have been documented in the HPI. ROS Other: All systems not noted in ROS Statement are negative. Past Medical History Past Medical History: Asthma, CVA/TIA, Diabetes Mellitus, GERD/Reflux, Hyperlipidemia, Hypertension, Musculoskeletal Disorder, Osteoarthritis (OA), Seizure Disorder, Sleep Apnea/CPAP/BIPAP Additional Past Medical History / Comment(s): RIGHT ELBOW & LEFT WRIST FX (JAN 2019)-WEARS SPLINTS., CHRONIC BACK PAIN , DDD, OCCASIONAL SCIATICA, HX OF SHATTERED TAILBONE, CHRONIC CERVICAL PAIN WITH SPURS , grand mal seizure with comprehension issues/loss of memory ever since (2016), "black outs" -no known cause, TILA with no device, diverticulitis/colitis with bowel resection, constipation, overactive bladder, kidney stones., LAST SEIZURE JANUARY 2019, HOSPITALIZED 04/21/19 FOR TIA. , WEARS BACK BRACE AND USES WALKER PRN, shingles History of Any Multi-Drug Resistant Organisms: MRSA Date of last positivie culture/infection: 07/12/19 MDRO Source:: belly button Past Surgical History: Appendectomy, Bowel Resection, Cholecystectomy, Heart Catheterization, Hysterectomy, Orthopedic Surgery, Tubal Ligation, Uterine Ablation Additional Past Surgical History / Comment(s): Bowel resection for colitis/diverticulitis, EGDs, colonoscopies, loop recorder now removed, multiple pain clinic procedures, bilateral rotator cuff surgery, R hand ganglion cyst removed 3 times, tilt table test, MRI with anesthesia d/t clausterphobia., BREE BICEP SURGERY Past Anesthesia/Blood Transfusion Reactions: No Reported Reaction, Motion Sickness Type of Cardiac Device: Loop Device Placement Date:: MAR 2009 AND 2013 Past Psychological History: Anxiety Smoking Status: Former smoker Past Alcohol Use History: None Reported Past Drug Use History: None Reported - Past Family History Mother Family Medical History: Cancer, Diabetes Mellitus Additional Family Medical History / Comment(s): Uterine cancer. Mother is living. Father Family Medical History: Cancer, Diabetes Mellitus, Hyperlipidemia, Hypertension, Renal Disease Additional Family Medical History / Comment(s): L lung cancer found post mortem. from renal failure. General Exam Limitations: no limitations General appearance: alert, in no apparent distress Head exam: Present: atraumatic, normocephalic, normal inspection Eye exam: Present: normal appearance, PERRL, EOMI Pupils: Present: normal accommodation ENT exam: Present: normal exam, normal oropharynx, mucous membranes moist Neck exam: Present: normal inspection, full ROM Respiratory exam: Present: normal lung sounds bilaterally Cardiovascular Exam: Present: regular rate, normal rhythm, normal heart sounds GI/Abdominal exam: Present: soft, tenderness (Umbilical tenderness), other (Previous scarring from a colectomy. Healing lesion near the umbilicus that is non-erythematous or draining.). Absent: distended, guarding, rebound, rigid, mass Extremities exam: Present: normal inspection, full ROM, normal capillary refill Back exam: Present: normal inspection, full ROM Neurological exam: Present: alert, oriented X3 Psychiatric exam: Present: normal affect, normal mood Skin exam: Present: warm, dry, intact, normal color Course Vital Signs 07/21/19 07/21/19 16:21 19:46 Temperature 97.8 F Pulse Rate 105 H 85 Respiratory 20 18 Rate Blood Pressure 119/78 94/75 O2 Sat by Pulse 98 97 Oximetry Medical Decision Making - Medical Decision Making Patient is a 49-year-old male presenting to emergency Department with a chief complaint of abdominal pain. Patient sent by the primary care to obtain CT imaging in the ED. On exam patient does have a healing lesion in the periumbilical region. It does not appear to be infected, no drainage. She does have diffuse abdominal tenderness otherwise. CBC and CMP are unremarkable. UA does show increased protein, increased specific gravity. Mild elevation in leukocyte esterase and white blood cells. Patient does not have increased urgency frequency dysuria. CT abdomen and pelvis is indicative of hepatosplenomegaly and enteritis. I suspect diffuse tenderness and her other symptoms are related to the enteritis. Patient advised to alternate between Motrin and Tylenol for pain control. She was advised to return to emergency department if symptoms worsen. She was advised to follow primary care. All questions answered. Case discussed with physician. - Lab Data Result diagrams: 07/21/19 17:30 07/21/19 17:30 Lab Results 07/21/19 07/21/19 07/21/19 Range/Units 17:30 17:30 17:30 WBC 8.0 (3.8-10.6) k/uL RBC 4.73 (3.80-5.40) m/uL Hgb 14.9 (11.4-16.0) gm/dL Hct 43.9 (34.0-46.0) % MCV 92.8 (80.0-100.0) fL MCH 31.5 (25.0-35.0) pg MCHC 33.9 (31.0-37.0) g/dL RDW 13.4 (11.5-15.5) % Plt Count 274 (150-450) k/uL Neutrophils % 64 % Lymphocytes % 25 % Monocytes % 5 % Eosinophils % 3 % Basophils % 2 % Neutrophils # 5.1 (1.3-7.7) k/uL Lymphocytes # 2.0 (1.0-4.8) k/uL Monocytes # 0.4 (0-1.0) k/uL Eosinophils # 0.2 (0-0.7) k/uL Basophils # 0.1 (0-0.2) k/uL Sodium 138 (137-145) mmol/L Potassium 4.3 (3.5-5.1) mmol/L Chloride 103 (98-107) mmol/L Carbon Dioxide 24 (22-30) mmol/L Anion Gap 11 mmol/L BUN 10 (7-17) mg/dL Creatinine 0.87 (0.52-1.04) mg/dL Est GFR (CKD-EPI)AfAm >90 (>60 ml/min/1.73 sqM) Est GFR (CKD-EPI)NonAf 79 (>60 ml/min/1.73 sqM) Glucose 94 (74-99) mg/dL Calcium 9.5 (8.4-10.2) mg/dL Total Bilirubin 0.3 (0.2-1.3) mg/dL AST 27 (14-36) U/L ALT 25 (4-34) U/L Alkaline Phosphatase 78 (38-126) U/L Total Protein 8.8 H (6.3-8.2) g/dL Albumin 4.6 (3.5-5.0) g/dL Amylase 56 (30-110) U/L Lipase 83 (23-300) U/L Urine Color Yellow Urine Appearance Turbid H (Clear) Urine pH 6.0 (5.0-8.0) Ur Specific [place] 1.036 H (1.001-1.035) Urine Protein 2+ H (Negative) Urine Glucose (UA) Negative (Negative) Urine Ketones Negative (Negative) Urine Blood Negative (Negative) Urine Nitrite Negative (Negative) Urine Bilirubin Negative (Negative) Urine Urobilinogen 3.0 (<2.0) mg/dL Ur Leukocyte Esterase Small H (Negative) Urine RBC 15 H (0-5) /hpf Urine WBC 15 H (0-5) /hpf Ur Squamous Epith Cells 47 H (0-4) /hpf Amorphous Sediment Rare H (None) /hpf Urine Bacteria Moderate H (None) /hpf Urine Mucus Few H (None) /hpf Urine Yeast (Budding) Occasional H (None) /hpf Disposition Clinical Impression: Enteritis, Abdominal pain, Nausea Disposition: HOME SELF-CARE Condition: Stable Instructions (If sedation given, give patient instructions): Enteritis (ED) Additional Instructions: Make sure to drink lots of fluids, preferably with electrolytes. Take prescribed medication as directed. Follow-up with primary care. Return to emergency department if symptoms worsen. Is patient prescribed a controlled substance at d/c from ED?: No Referrals: Connor King Jr, DO [Primary Care Provider] - 1-2 days Time of Disposition: 19:20
[2019-07-21 17:53] LABS: Basophils # (A) 0.1 k/uL (0-0.2); Basophils % (A) 2 %; Eosinophils # (A) 0.2 k/uL (0-0.7); Eosinophils % (A) 3 %; HCT 43.9 % (34.0-46.0); HGB 14.9 gm/dL (11.4-16.0); Lymphocytes % (A) 25 %; MCH 31.5 pg (25.0-35.0); MCHC 33.9 g/dL (31.0-37.0); MCV 92.8 fL (80.0-100.0); Monocytes # (A) 0.4 k/uL (0-1.0); Monocytes % (A) 5 %; Neutrophils # (A) 5.1 k/uL (1.3-7.7); Neutrophils % (A) 64 %; Platelet Count 274 k/uL (150-450); RBC 4.73 m/uL (3.80-5.40); RDW 13.4 % (11.5-15.5)
[2019-07-21 18:04] LABS: ALT 25 U/L (4-34); AST 27 U/L (14-36); African American GFR (CKD) >90 (>60 ml/min/1.73 sqM); Albumin 4.6 g/dL (3.5-5.0); Alkaline Phosphatase 78 U/L (38-126); Amorphous Sediment,Urine Rare /hpf; Amylase 56 U/L (30-110); Anion Gap 11 mmol/L; Appearance,Urine Turbid (Clear); Bacteria,Urine Moderate /hpf; Bilirubin,Urine Negative (Negative); Blood Urea Nitrogen 10 mg/dL (7-17); Blood,Urine Negative (Negative); Budding Yeast,Urine Occasional /hpf; Calcium 9.5 mg/dL (8.4-10.2); Carbon Dioxide 24 mmol/L (22-30); Chloride 103 mmol/L (98-107); Color,Urine Yellow; Glucose 94 mg/dL (74-99); Glucose,Urine (UA) Negative (Negative); Ketones,Urine Negative (Negative); Leukocyte Esterase,Urine Small (Negative); Mucus,Urine Few /hpf; Nitrite,Urine Negative (Negative); Non-African American GFR(CKD) 79 (>60 ml/min/1.73 sqM); Potassium 4.3 mmol/L (3.5-5.1); Protein,Urine 2+ (Negative); RBC,Urine 15 /hpf (0-5); Sodium 138 mmol/L (137-145); Specific Gravity,Urine 1.036 (1.001-1.035); Squamous Epithelial Cell,Urine 47 /hpf (0-4); Total Bilirubin 0.3 mg/dL (0.2-1.3); Total Protein 8.8 g/dL (6.3-8.2); WBC,Urine 15 /hpf (0-5)
--- NOTE | 2019-07-21 19:04 | CT ---
EXAMINATION TYPE: CT abdomen pelvis w con DATE OF EXAM: 07/21/2019 COMPARISON: Prior CT 04/13/2019 HISTORY: Umbilical pain. CT DLP: 1319.7 mGycm Automated exposure control for dose reduction was used. TECHNIQUE: Helical acquisition of images from the lung bases through the pelvis have been completed. CONTRAST: Performed without Oral Contrast and with IV Contrast, patient injected with 100 mL of Isovue 300. FINDINGS: LUNG BASES: No significant abnormality is appreciated. AORTA: No significant abnormality is appreciated. LIVER/GB: Liver shows low attenuation likely due to hepatic steatosis and liver is enlarged. Gallblad dorys is absent. PANCREAS: No significant abnormality is seen. SPLEEN: No significant abnormality is seen. ADRENALS: No significant abnormality is seen. KIDNEYS: No significant abnormality is seen. REPRODUCTIVE ORGANS: No significant abnormality is seen BOWEL: There are postop changes within the pelvis at the rectosigmoid colon. The appendix is not seen . There are some fluid-filled loops of small bowel present. FREE AIR: No Free Air visible. ASCITES: None visible. PELVIC ADENOPATHY: None visualized. RETROPERITONEAL ADENOPATHY: No Retroperitoneal Adenopathy visible. URINARY BLADDER: No significant abnormality is seen. OSSEOUS STRUCTURES: No significant abnormality is seen. IMPRESSION: HEPATOMEGALY, HEPATIC STEATOSIS, POSTOP CHANGES, CORRELATE FOR POSSIBLE ENTERITIS
[2019-07-21] MEDS ORDERED: ONDANSETRON 4 MG/2 ML VIAL IVP STA (19:26)
[2019-07-21 19:47] VITALS: BP 94/75; PULSE 85; RESP 18
== END 2019-07-21 19:48 | disposition home or self-care (01) ==
LOC: EC 15:55
DX: K52.9 Noninfective gastroenteritis and colitis, unspecified (principal); R16.2 Hepatomegaly with splenomegaly, not elsewhere classified; R80.9 Proteinuria, unspecified; R82.998 Other abnormal findings in urine; L98.9 Disorder of the skin and subcutaneous tissue, unspecified; J45.909 Unspecified asthma, uncomplicated; E11.9 Type 2 diabetes mellitus without complications; K21.9 Gastro-esophageal reflux disease without esophagitis; E78.5 Hyperlipidemia, unspecified; I10 Essential (primary) hypertension; M19.90 Unspecified osteoarthritis, unspecified site; G40.909 Epilepsy, unspecified, not intractable, without status epilepticus; G47.33 Obstructive sleep apnea (adult) (pediatric); G89.29 Other chronic pain; M54.9 Dorsalgia, unspecified; F41.9 Anxiety disorder, unspecified; Z79.1 Long term (current) use of non-steroidal anti-inflammatories (NSAID); Z79.82 Long term (current) use of aspirin; Z79.84 Long term (current) use of oral hypoglycemic drugs; Z79.51 Long term (current) use of inhaled steroids; Z79.899 Other long term (current) drug therapy; Z88.1 Allergy status to other antibiotic agents; Z88.8 Allergy status to other drugs, medicaments and biological substances; Z91.018 Allergy to other foods; Z86.73 Personal history of transient ischemic attack (TIA), and cerebral infarction without residual deficits; Z90.49 Acquired absence of other specified parts of digestive tract; Z87.891 Personal history of nicotine dependence; Z87.19 Personal history of other diseases of the digestive system; Z87.442 Personal history of urinary calculi; Z99.89 Dependence on other enabling machines and devices; Z95.5 Presence of coronary angioplasty implant and graft; Z98.890 Other specified postprocedural states; Z86.14 Personal history of Methicillin resistant Staphylococcus aureus infection
CPT/HCPCS: 36415; 80053; 82150; 83690; 85025; 81001; 87086; 74177; 99284; 96374; 96375 ×4; 96376; 96361; J1200; J2765; J2405; J1885; C9113; Q9967

== ENCOUNTER → 2019-07-29 | Day surgery (SDC) | payer OTHER ==
[2019-07-25 15:26] VITALS: BMI 35.1
[~2019-07-29] MED LIST changes: +BUPIVACAINE (PF) 0.5% 30 ML VIAL ONE; +LACTATED RINGERS 1,000 ML IV ONE; -LACTATED RINGERS 1,000 ML IV SCH; +LIDOCAINE 1% 20 ML VIAL (10MG/ML) FOR IV START INTRADERMA ONE; +MIDAZOLAM 2 MG/2 ML VIAL ONE; +fentaNYL (PF) 50 MCG/ML 2 ML AMP ONE; +methylPREDNISolone ACETATE 40 MG/ML 1 ML VIAL ONE
[2019-07-29 07:18] VITALS: TEMP 98.5
[2019-07-29 07:31] LABS: Glucose,Whole Blood 92 mg/dL (75-99)
--- NOTE | 2019-07-29 08:23 | P.PCN ---
Date of Procedure: 07/29/19 Surgeon: Jamee Gonazlez Pathology: none sent Condition: stable Disposition: PACU Description of Procedure: Preoperative diagnoses= sacroiliac joint dysfunction and sacroiliitis on the le ft side Postoperative diagnoses= same as preoperative diagnosis. Procedure= sacroiliac joint steroid injection under fluoroscopic guidance. Anesthesia= local anesthesia with lidocaine 1% and IV moderate conscious sedation with fentanyl and Versed. Sedation time is from 8:12 to 8:20 Estimated blood loss=minimal. Procedure indication= the patient had a history of severe chronic low back pain, diagnosed with sacroiliitis and lumbar sacral facet arthropathy unresponsive to conservative treatment. Procedure description= the patient was seen and identified in the preoperative holding area, risks and benefits and alternative of the procedure and possible complications discussed with the patient, patient signed the consent. an IV was started, and vital signs were monitored and were stable throughout the procedure, patient was placed in the prone position or table and the lumbosacral area was prepped and draped with a sterile fashion, vital signs were closely monitored during the procedure.The sacroiliac joint was identified on the AP view of fluoroscopy then the C-arm was tilted to the contralateral oblique position to superimpose the anterior and posterior joint lines on each other and to have a unified joint line with the target point at the inferior one third of this line. I used 22-gauge 3-1/2 inch Quincke spinal needle for this procedure and after getting into the sacroiliac joint I injected 40 mg of Depomedrol +2 MLS of Ropivacaine 0.5%. Patient tolerated the procedure well without any complication, The patient returned to supine position after the back was cleaned and a Band- Aid applied, the patient transported to recovery room in stable condition and he was monitored for 30 minutes before he was discharged home and then patient was reexamined before going home and patient was discharged in stable condition and patient will follow up with the pain clinic in a few weeks
[2019-07-29 08:28] VITALS: RESP 17
[2019-07-29 08:33] VITALS: BP 128/78; PULSE 96
--- NOTE | 2019-07-29 12:08 | FL ---
Fluoroscopy HISTORY: Pain 5 seconds fluoroscopy time supplied to the referring clinician. 1 intraoperative C-arm images docume nt the procedure. See dictated report from anesthesia.
== END ==
LOC: ORPAIN 06:33
PROVIDERS: ATTEND Anesthesiology
DX: G89.29 Other chronic pain (principal); M46.1 Sacroiliitis, not elsewhere classified; M53.3 Sacrococcygeal disorders, not elsewhere classified; M47.26 Other spondylosis with radiculopathy, lumbar region; M51.16 Intervertebral disc disorders with radiculopathy, lumbar region; E11.9 Type 2 diabetes mellitus without complications; Z90.710 Acquired absence of both cervix and uterus; Z79.82 Long term (current) use of aspirin; Z87.891 Personal history of nicotine dependence; Z79.1 Long term (current) use of non-steroidal anti-inflammatories (NSAID); Z79.84 Long term (current) use of oral hypoglycemic drugs; Z79.891 Long term (current) use of opiate analgesic; Z79.899 Other long term (current) drug therapy
CPT/HCPCS: J2250; J1030; J3010; G0260; 27096

== ENCOUNTER → 2019-08-05 | Outpatient (CLI) | payer OTHER ==
--- NOTE | 2019-08-05 16:19 | XR ---
KUB HISTORY: Abdominal pain and tenderness Frontal KUB submitted on 2 images, correlation prior exam 04/21/2019. Lung bases are clear. Surgical clips are present right upper quadrant. There is retained fecal debris present throughout the distribution of the colon. Bone mineralization is normal. No pneumoperitoneum or bowel obstruction is evident. Calcifications in the pelvis thought likely to represent phlebolith s. IMPRESSION: Correlate for fecal stasis. Nonspecific calcifications within the pelvis.
== END | disposition home or self-care (01) ==
LOC: RADXRMAIN 15:15
PROVIDERS: ATTEND Family Medicine
DX: N94.89 Other specified conditions associated with female genital organs and menstrual cycle (principal)
CPT/HCPCS: 74018

== ENCOUNTER → 2019-08-11 | Outpatient (CLI) | payer OTHER ==
[2019-08-11 12:51] VITALS: BP 114/78; PULSE 87; RESP 16
--- NOTE | 2019-08-11 13:46 | P.PAINPG ---
Subjective Progress Note Date: 08/11/19 Apoorva is a 49-year-old female who presents today after follow-up after left- sided sacral lateral branch block. She presents today for follow-up secondary to the procedure, she like to move forward with a second injection she reports pretty good relief greater than 50% on that side. She reports she had excellent relief with a right-sided sacral ablation. She denies any new numbness tingling or weakness in the legs. She reports that the radio frequency ablation of the cervical spine significant improved her life. She denies any bowel or bladder incontinence, denies any irregular heartbeats or chest pain, denies any nausea or vomiting or lower extremity numbness tingling or weakness. Objective - Vital Signs Vital signs: Vital Signs Temp Pulse 87 08/11/19 12:50 Resp 16 08/11/19 12:50 BP 114/78 08/11/19 12:50 Pulse Ox 96 08/11/19 12:50 - Exam General: Awake and alert oriented 3 no distress, obese Respiratory exam: No audible wheezing no accessory muscle usage Cardiovascular exam: regular rate, palpable bilateral pulses, no lower extremity edema Abdominal exam: No distention nontender to palpation Cervical spine: Normal alignment, Spurling's negative, facet loading negative, Clinical Documentation Consultant strength is 5/5, sims negative Lumbar spine: Loss of lumbar lordosis, normal alignment, tender to palpation over bilateral paraspinal muscles, facet loading is positive bilaterally. Straight leg raise is negative. Limited range of motion due to pain with flexion, extension and side bending. Sacroiliac joints: Tender palpation the left side, Madina's test is positive, gains on's test is positive on the left Neuro exam: Normal sensation in bilateral upper extremities, deep tendon reflexes are 2+ bilateral upper extremities. Normal sensation in bilateral lower extremities. Deep tendon reflexes are 2+ in lower extremities Psych exam: Cooperative, appropriate mood Assessment and Plan Assessment: #1 sacroiliitis #2 lumbar spondylosis without myelopathy #3 cervical spondylosis without myelopathy #4 opioid dependence Plan: After review the records and examination the patient, I believe she'll benefit from a second sacral lateral branch block on the left side and if she again has good improvement from the diagnostic block we will schedule her for a radiofrequency ablation of the left side. Patient also uses lidocaine cream as well as [place] from her primary care physician chronic pain issues. We discussed the procedure detail with her and we'll move forward with that as soon as possible. PQRS Measure Charge Sheet Measure #130: Documentation of Current Meds in Medical Chart: Patient's medications documented in chart Measure #226: Tobacco Use: Screen & Cessation Intervention: Pt not a tobacco user Measure #111: Pneumonia Vaccination: Pneumococcal vaccine administered or previously received Measure #47: Advance Care Plan: Advance care planning discussed & documented, plan or surrogate given Measure #412: Opioid Treatment Agreement: No documentation of signed opioid treatment agreement Measure #408: Opioid Therapy Follow-up Evaluation: Patient had f/u eval minimum every 3 months during opioid therapy Measure #317: Preventitive Care & Scrn High Bld Press & F/U: Normal blood pressure, f/u not required Measure #128: Body Mass Index (BMI) Screening & Follow-up: BMI documented ABOVE normal parameters - f/u documented Measure #131: Pain Assessment & Follow-up: Pain positive & plan documented Measure #431: Unhealthy Alcohol Use Preventative Care & Scrn: Patient not identified as an unhealthy alcohol user PQRS Narrative: Smoking Status Former smoker Blood Pressure 114/78 Pain Intensity [Lower Back] 7 Scale Used Numeric (1 - 10) Hx Alcohol Use (MH) No Home Medications: Ambulatory Orders Docusate Sodium [Dulcolax Stool Softener] 100 mg PO HS PRN 03/03/14 Omeprazole [PriLOSEC] 20 mg PO BID 04/03/14 Albuterol Inhaler [Ventolin Hfa Inhaler] 2 puff INHALATION RT-QID PRN 11/23/14 Azelastine HCl [Optivar 0.05% Ophth Soln] 1 drop BOTH EYES DAILY 06/12/16 Fenofibrate 160 mg PO HS 06/12/16 OXcarbazepine [Oxtellar Xr] 900 mg PO QAM 06/12/16 Prochlorperazine [Compazine] 10 mg PO TID PRN 06/12/16 Verapamil HCl [Verapamil ER] 120 mg PO QAM 06/12/16 Cetirizine HCl 10 mg PO DAILY 05/01/17 Gabapentin 600 mg PO TID 06/07/18 metFORMIN HCL [metFORMIN HCL ER] 500 mg PO BID 06/07/18 Famotidine [Pepcid] 40 mg PO DAILY 09/19/18 HYDROcodone/APAP 10-325MG [[place] 10-325] 1 tab PO TID 09/19/18 Lidocaine 2% Gel [Xylocaine Jelly 2%] 1 applic TOPICAL BID 02/20/19 Albuterol Nebulized [Ventolin Nebulized] 2.5 mg INHALATION RT-QID PRN 04/07/19 Butalb/APAP/Caff 50-325-40Mg [Fioricet 50-325-40] 1 tab PO Q8H PRN 04/07/19 Chlorhexidine Gluconate [Peridex] 15 ml PO BID 04/07/19 Citalopram Hydrobromide [CeleXA] 20 mg PO DAILY 04/07/19 Meloxicam [Mobic] 15 mg PO DAILY PRN 04/07/19 Oxybutynin ER [Ditropan Xl] 15 mg PO DAILY 04/07/19 Losartan [Cozaar] 50 mg PO DAILY 04/21/19 Aspirin [Adult Low Dose Aspirin EC] 81 mg PO DAILY 05/19/19 Ibuprofen [Motrin] 800 mg PO Q8H 07/02/19 Controlled Substance Measures - Controlled Substance Measures Is patient prescribed a controlled substance at discharge?: No
== END | disposition home or self-care (01) ==
LOC: PNWHC3 12:31
PROVIDERS: ATTEND Hospitalist
DX: M47.812 Spondylosis without myelopathy or radiculopathy, cervical region (principal); M47.816 Spondylosis without myelopathy or radiculopathy, lumbar region; M46.1 Sacroiliitis, not elsewhere classified; F11.20 Opioid dependence, uncomplicated; Z98.890 Other specified postprocedural states; Z87.891 Personal history of nicotine dependence; Z79.84 Long term (current) use of oral hypoglycemic drugs; Z79.1 Long term (current) use of non-steroidal anti-inflammatories (NSAID); Z79.82 Long term (current) use of aspirin; Z79.899 Other long term (current) drug therapy
CPT/HCPCS: 99211

== ENCOUNTER → 2019-08-22 | Outpatient (CLI) | payer OTHER ==
--- NOTE | 2019-08-22 15:07 | XR ---
EXAMINATION TYPE: XR chest 2V DATE OF EXAM: 08/22/2019 COMPARISON: Prior chest 04/21/2019 HISTORY: Cough and congestion TECHNIQUE: Frontal and lateral views of the chest are obtained. FINDINGS: There is no focal air space opacity, pleural effusion, or pneumothorax seen. The cardiac silhouette size is within normal limits. The osseous structures are intact. There is surgical clips in the right upper quadrant. IMPRESSION: No acute cardiopulmonary process.
[2019-08-22 15:35] LABS: Basophils # (A) 0.1 k/uL (0-0.2); Basophils % (A) 1 %; Eosinophils # (A) 0.3 k/uL (0-0.7); Eosinophils % (A) 4 %; HCT 42.8 % (34.0-46.0); HGB 14.5 gm/dL (11.4-16.0); Lymphocytes # (A) 1.9 k/uL (1.0-4.8); Lymphocytes % (A) 26 %; MCH 31.5 pg (25.0-35.0); MCHC 33.8 g/dL (31.0-37.0); MCV 93.3 fL (80.0-100.0); Mean Platelet Volume 7.1; Monocytes # (A) 0.4 k/uL (0-1.0); Monocytes % (A) 6 %; Neutrophils # (A) 4.4 k/uL (1.3-7.7); Neutrophils % (A) 61 %; Platelet Count 290 k/uL (150-450); RBC 4.59 m/uL (3.80-5.40); RDW 13.3 % (11.5-15.5); WBC 7.3 k/uL (3.8-10.6)
[2019-08-22 15:44] LABS: ALT 34 U/L (4-34); AST 29 U/L (14-36); African American GFR (CKD) >90 (>60 ml/min/1.73 sqM); Albumin 4.6 g/dL (3.5-5.0); Alkaline Phosphatase 72 U/L (38-126); Anion Gap 10 mmol/L; Blood Urea Nitrogen 10 mg/dL (7-17); Calcium 9.6 mg/dL (8.4-10.2); Carbon Dioxide 31 mmol/L (22-30); Chloride 97 mmol/L (98-107); Glucose 87 mg/dL (74-99); Non-African American GFR(CKD) >90 (>60 ml/min/1.73 sqM); Potassium 4.8 mmol/L (3.5-5.1); Sodium 138 mmol/L (137-145); Total Bilirubin 0.2 mg/dL (0.2-1.3); Total Protein 8.5 g/dL (6.3-8.2)
== END | disposition home or self-care (01) ==
LOC: RADXRMAIN 13:51
PROVIDERS: ATTEND Family Medicine
DX: R05 Cough (principal); R53.83 Other fatigue
CPT/HCPCS: 80053; 85025; 87502; 71046; 36415; G0463; 99212

== ENCOUNTER 2019-08-28 07:59 | Day surgery (SDC) | payer OTHER ==
[2019-08-26 16:12] VITALS: BMI 35.9
[~2019-08-28 07:59] MED LIST changes: -BUPIVACAINE (PF) 0.5% 30 ML VIAL ONE; -LACTATED RINGERS 1,000 ML IV ONE; +LACTATED RINGERS 1,000 ML IV SCH; -LIDOCAINE 1% 20 ML VIAL (10MG/ML) FOR IV START INTRADERMA ONE; -MIDAZOLAM 2 MG/2 ML VIAL ONE; -fentaNYL (PF) 50 MCG/ML 2 ML AMP ONE; -methylPREDNISolone ACETATE 40 MG/ML 1 ML VIAL ONE
[2019-08-28 08:32] LABS: Glucose,Whole Blood 82 mg/dL (75-99)
[2019-08-28 08:37] VITALS: RESP 16; TEMP 97
[2019-08-28] MEDS ORDERED: MIDAZOLAM 2 MG/2 ML VIAL ONE (08:53)
[2019-08-28] MEDS ORDERED: ROPIVACAINE 5MG/ML 20ML VIAL ONE (08:53)
[2019-08-28] MEDS ORDERED: fentaNYL (PF) 50 MCG/ML 2 ML AMP ONE (08:53)
[2019-08-28] MEDS ORDERED: methylPREDNISolone ACETATE 40 MG/ML 1 ML VIAL ONE (08:53)
--- NOTE | 2019-08-28 09:09 | P.PCN ---
Date of Procedure: 08/28/19 Procedure(s) Performed: Procedure= Left sacroiliac joints steroid injection under fluoroscopy guidance (fluoroscopy image stored on file in the radiology Department ) Preoperative diagnosis= 1-sacroiliitis 2-sacroiliac joint dysfunction 3- lumbar spondylosis with facet arthropathy Postoperative diagnosis= same as preop diagnosis. Complication = none Condition= stable Anesthesia= moderate sedation with intravenous Versed 2 mg , and fentanyl 50 micrograms . Indication for the procedure= patient complaining of low back pain , examination was positive for severe tenderness over the left sacroiliac joints , and patient diagnosed with sacroiliitis, for this reason , she was good candidate for left sacroiliac joint steroid injection. Description of the procedure= procedure risk and benefits discussed with the patient, including but not limited, risk of infection and bleeding, and ALLERGIC reaction to the medication and not complete pain relief and patient agreed with the preceding patient taken to the operating room, placed in prone position or standard monitors applied to the patient then after induction of anesthesia back prepped with chlorhexidine 3 times , Then under strict sterile technique, I did the left sacroiliac joint the which was identified under fluoroscopy guidance been local infiltration of the skin and subcu interstitial with lidocaine 1% then 22-gauge Quincke Needle advanced slowly under fluoroscopy and placed in the left sacroiliac joint needle placem ent confirmed with AP and oblique and lateral view and after appropriate needle placement confirmed and after negative aspiration, or heme , then Ropivacaine 0.5% 3 mL, and 40 mg of Depo-Medrol mixed together and injected in the right sacroiliac joint after negative aspiration patient tolerated the procedure well without any complication.
--- NOTE | 2019-08-28 09:15 | FL ---
EXAMINATION TYPE: FL guided pain mgmt statistic DATE OF EXAM: 08/28/2019 HISTORY: Fluoroscopy time 4 seconds of fluoroscopy provided. IMPRESSION: 1. Fluoroscopy time.
[2019-08-28 09:26] VITALS: BP 138/89; PULSE 90
[2019-08-28] MEDS ORDERED: IV FLUID CONTINUATION 1,000 ML IV ONE (09:26)
== END 2019-08-28 09:36 | disposition home or self-care (01) ==
LOC: ORPAIN 07:59
PROVIDERS: ATTEND Specialist
DX: M46.1 Sacroiliitis, not elsewhere classified (principal); M53.3 Sacrococcygeal disorders, not elsewhere classified; M47.816 Spondylosis without myelopathy or radiculopathy, lumbar region; I10 Essential (primary) hypertension; Z86.73 Personal history of transient ischemic attack (TIA), and cerebral infarction without residual deficits; E11.9 Type 2 diabetes mellitus without complications; Z79.82 Long term (current) use of aspirin; Z88.1 Allergy status to other antibiotic agents; Z88.8 Allergy status to other drugs, medicaments and biological substances
CPT/HCPCS: J2250; J1030; J3010; J2795; G0260; 27096

== ENCOUNTER → 2019-09-11 | Outpatient (CLI) | payer OTHER ==
[2019-09-11 16:22] LABS: Basophils # (A) 0.1 k/uL (0-0.2); Basophils % (A) 1 %; Eosinophils # (A) 0.3 k/uL (0-0.7); Eosinophils % (A) 4 %; HCT 39.1 % (34.0-46.0); HGB 13.1 gm/dL (11.4-16.0); Lymphocytes # (A) 2.1 k/uL (1.0-4.8); Lymphocytes % (A) 25 %; MCH 31.6 pg (25.0-35.0); MCHC 33.5 g/dL (31.0-37.0); MCV 94.3 fL (80.0-100.0); Mean Platelet Volume 7.1; Monocytes # (A) 0.5 k/uL (0-1.0); Monocytes % (A) 6 %; Neutrophils # (A) 5.1 k/uL (1.3-7.7); Neutrophils % (A) 62 %; Platelet Count 278 k/uL (150-450); RBC 4.15 m/uL (3.80-5.40); RDW 13.7 % (11.5-15.5); WBC 8.3 k/uL (3.8-10.6)
[2019-09-11 16:29] LABS: Albumin 4.3 g/dL (3.5-5.0); Calcium 9.6 mg/dL (8.4-10.2); Potassium 4.4 mmol/L (3.5-5.1); Total Bilirubin 0.2 mg/dL (0.2-1.3); Total Protein 7.9 g/dL (6.3-8.2)
--- NOTE | 2019-09-11 16:36 | US ---
EXAMINATION TYPE: US venous doppler duplex LE RT DATE OF EXAM: 09/11/2019 4:24 PM COMPARISON: NONE CLINICAL HISTORY: M79.661 pain in limb. Pain behind right knee SIDE PERFORMED: Right TECHNIQUE: The lower extremity deep venous system is examined utilizing real time linear array sonog zamzam with graded compression, doppler sonography and color-flow sonography. VESSELS IMAGED: External Iliac Vein (EIV) Common Femoral Vein Deep Femoral Vein Greater Saphenous Vein * Femoral Vein Popliteal Vein Small Saphenous Vein * Proximal Calf Veins (* superficial vessels) Grayscale, color doppler, spectral doppler imaging performed of the deep veins of the lower extremiti es. Right Leg: Positive for DVT right popliteal vein IMPRESSION: Deep venous thrombosis within the right popliteal vein. Finding was communicated to the ordering physician's office by the theater set production designer at 1633PM. Rachna Tolbert spoke with Gabrielle on 09/11/2019. The patient was directed to the ordering physician's office.
== END | disposition home or self-care (01) ==
LOC: RADUSWWP 15:38
PROVIDERS: ATTEND Family Medicine
DX: I82.431 Acute embolism and thrombosis of right popliteal vein (principal); M79.661 Pain in right lower leg; R53.83 Other fatigue; I10 Essential (primary) hypertension; Z88.0 Allergy status to penicillin; Z88.8 Allergy status to other drugs, medicaments and biological substances
CPT/HCPCS: 36415; 80053; 85025; 85379

== ENCOUNTER 2019-12-21 20:39 | Emergency (ER) | payer OTHER ==
[2019-12-21 20:46] VITALS: BP 142/97; PULSE 86; RESP 20; TEMP 97.7
--- NOTE | 2019-12-21 21:58 | XR ---
EXAMINATION TYPE: XR knee 4V LT DATE OF EXAM: 12/21/2019 COMPARISON: NONE HISTORY: Knee pain TECHNIQUE: 4 views FINDINGS: I see no fracture nor dislocation. Joint spaces are normal. There is no sign of knee joint effusion. There is mild spurring on the superior patella. IMPRESSION: Negative left knee exam. No fracture.
--- NOTE | 2019-12-21 22:00 | ED ---
Lower Extremity Injury HPI - General Source: patient, family Mode of arrival: wheelchair Limitations: no limitations <Angelita Carbajal - Last Filed: 12/22/19 00:16> <Shanna Leal - Last Filed: 12/25/19 17:03> - General Chief Complaint: Extremity Injury, Lower Stated Complaint: Lt knee pain Time Seen by Provider: 12/21/19 20:55 - History of Present Illness Initial Comments: Patient is a 49-year-old female presenting to the emergency Department with complaints of left knee pain since yesterday. Patient denies any falls or injuries to cause pain. She states the pain is mostly in the anterior portion of the knee. She denies any previous injuries or surgeries. She states she does have history of a DVT of her right leg is currently on eliquis. She states when she was walking today her leg to give out and she fell forward onto a bent knee. She states the pain has been increasing over the past 2 days. She has no further complaints at this time. Upon arrival to the ER, vitals are stable. (Angelita Carbajal) - Related Data Home Medications Medication Instructions Recorded Confirmed Docusate Sodium [Dulcolax Stool 100 mg PO HS PRN 03/03/14 09/09/19 Softener] Omeprazole [PriLOSEC] 20 mg PO BID 04/03/14 09/09/19 Albuterol Inhaler (Mhu) [Ventolin 2 puff INHALATION QID PRN 11/23/14 09/09/19 Hfa Inhaler (Mhu)] Azelastine HCl [Optivar 0.05% 1 drop BOTH EYES DAILY 06/12/16 09/09/19 Ophth Soln] Fenofibrate 160 mg PO HS 06/12/16 09/09/19 OXcarbazepine [Oxtellar Xr] 900 mg PO QAM 06/12/16 09/09/19 Prochlorperazine [Compazine] 10 mg PO TID PRN 06/12/16 09/09/19 Verapamil HCl [Verapamil ER] 120 mg PO QAM 06/12/16 09/09/19 Cetirizine HCl 10 mg PO DAILY 05/01/17 09/09/19 Gabapentin 600 mg PO TID 06/07/18 09/09/19 metFORMIN HCL [metFORMIN HCL ER] 500 mg PO BID 06/07/18 09/09/19 Famotidine [Pepcid] 40 mg PO DAILY 09/19/18 09/09/19 HYDROcodone/APAP 10-325MG [[place] 1 tab PO TID 09/19/18 09/09/19 10-325] Lidocaine 2% Gel [Xylocaine Jelly 1 applic TOPICAL BID 02/20/19 09/09/19 2%] Albuterol Nebulized [Ventolin 2.5 mg INHALATION RT-QID PRN 04/07/19 09/09/19 Nebulized] Butalb/APAP/Caff 50-325-40Mg 1 tab PO Q8H PRN 04/07/19 09/09/19 [Fioricet 50-325-40] Citalopram Hydrobromide [CeleXA] 20 mg PO DAILY 04/07/19 09/09/19 Meloxicam [Mobic] 15 mg PO DAILY PRN 04/07/19 09/09/19 Oxybutynin ER [Ditropan Xl] 15 mg PO DAILY 04/07/19 09/09/19 Losartan [Cozaar] 50 mg PO DAILY 04/21/19 09/09/19 Aspirin [Adult Low Dose Aspirin EC] 81 mg PO DAILY 05/19/19 09/09/19 Allergies Allergy/AdvReac Type Severity Reaction Status Date / Time azithromycin Allergy Swelling Verified 12/21/19 20:46 [From Zithromax Z-Brayden] ondansetron HCl Allergy Vomiting Verified 12/21/19 20:46 [From Zofran (as hydrochloride)] onion Allergy Swelling Verified 12/21/19 20:46 Review of Systems ROS Other: All systems not noted in ROS Statement are negative. <Angelita Carbajal - Last Filed: 12/22/19 00:16> ROS Other: All systems not noted in ROS Statement are negative. <Shanna Leal - Last Filed: 12/25/19 17:03> ROS Statement: Those systems with pertinent positive or pertinent negative responses have been documented in the HPI. 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 , WEARS BACK BRACE, shingles, on Rx for UTI, starting topical for vaginal yeast infection History of Any Multi-Drug Resistant Organisms: MRSA Date of last positivie culture/infection: 07/12/19 MDRO Source:: belly button Past Surgical History: Appendectomy, Bowel Resection, Cholecystectomy, Heart Catheterization, Hysterectomy, Orthopedic Surgery, Tubal Ligation, Uterine Ablation Additional Past Surgical History / Comment(s): Bowel resection for colitis/diverticulitis, EGDs, colonoscopies, loop recorder now removed, multiple pain clinic procedures, bilateral rotator cuff surgery, R hand ganglion cyst removed 3 times, tilt table test, MRI with anesthesia d/t claustrophobia., BREE BICEP SURGERY Past Anesthesia/Blood Transfusion Reactions: Motion Sickness Type of Cardiac Device: Loop Device Placement Date:: MAR 2009 AND 2013 Past Psychological History: Anxiety Smoking Status: Former smoker Past Alcohol Use History: None Reported Past Drug Use History: None Reported - Past Family History Mother Family Medical History: Cancer Additional Family Medical History / Comment(s): Uterine cancer. Father Family Medical History: Cancer Additional Family Medical History / Comment(s): L lung cancer <Angelita Carbajal L - Last Filed: 12/22/19 00:16> General Exam Limitations: no limitations <Angelita Carbajal - Last Filed: 12/22/19 00:16> - General Exam Comments Initial Comments: GENERAL: Well-appearing, well-nourished and in no acute distress. HEAD: Atraumatic, normocephalic. EYES: Pupils equal round and reactive to light, extraocular movements intact, sclera anicteric, conjunctiva are normal. ENT: TMs normal, nares patent, oropharynx clear without exudates. Moist mucous membranes. NECK: Normal range of motion, supple without lymphadenopathy or JVD. LUNGS: Breath sounds clear to auscultation bilaterally and equal. No wheezes rales or rhonchi. HEART: Regular rate and rhythm without murmurs, rubs or gallops. ABDOMEN: Soft, nontender, normoactive bowel sounds. No guarding, no rebound. No masses appreciated. : Deferred EXTREMITIES: Pain with palpation of the anterior portion of the left knee. There is no obvious deformity or swelling. She is neurovascular intact. She has increased pain with extension and flexion of the left knee. No clubbing or cyanosis. NEUROLOGICAL: Normal speech, normal gait. PSYCH: Normal mood, normal affect. SKIN: Warm, Dry, normal turgor, no rashes or lesions noted. (Angelita Carbajal) Course Vital Signs 12/21/19 20:41 Temperature 97.7 F Pulse Rate 86 Respiratory 20 Rate Blood Pressure 142/97 O2 Sat by Pulse 99 Oximetry Medical Decision Making <Angelita Carbajal - Last Filed: 12/22/19 00:16> <Shanna Leal - Last Filed: 12/25/19 17:03> - Medical Decision Making Patient is a 49-year-old female here for left knee pain 2 days. She does have history of DVT of the right leg, is currently on eliquis. X-rays of the left knee revealed no acute fracture dislocation, no joint effusion. I discussed with patient that she could have injured her meniscus. I do recommend ice, Tylenol for the pain. She will follow up with orthopedics. She is stable for discharge. She is in agreement with this plan of care. Return parameters were discussed with the patient she verbalized understanding. Case discussed with Dr. Leal. (Angelita Carbajal) I was available for consultation in the emergency department. The history and physical exam were done by the midlevel provider. I was consulted for this patients care. I reviewed the case with the midlevel provider and based on their presentation of the patient, I agree with the assessment, medical decision making and plan of care as documented. Chart was dictated using After[employer] dictation software. Attempts were made to correct any dictation errors however some typographical errors may persist. Patient was seen during a national state of emergency due to the Covid-19 pandemic. (Shanna Leal) Disposition Is patient prescribed a controlled substance at d/c from ED?: No <Angelita Carbajal - Last Filed: 06/29/20 00:16> <Vito Lealah Soham - Last Filed: 12/25/19 17:03> Clinical Impression: Left knee pain Disposition: HOME SELF-CARE Condition: Stable Instructions (If sedation given, give patient instructions): Knee Pain (ED) Additional Instructions: Please return to the Emergency Department if symptoms worsen or any other concerns. Use compression on the knee, ice, Tylenol for discomfort. Follow up with orthopedics as discussed. Referrals: Connor King Jr, [Primary Care Provider] - 1-2 days Rito White MD [STAFF PHYSICIAN] - 1-2 days
== END 2019-12-21 22:34 | disposition home or self-care (01) ==
LOC: EC 20:39
DX: M25.562 Pain in left knee (principal); J45.909 Unspecified asthma, uncomplicated; E11.9 Type 2 diabetes mellitus without complications; I10 Essential (primary) hypertension; E78.5 Hyperlipidemia, unspecified; G47.30 Sleep apnea, unspecified; G40.909 Epilepsy, unspecified, not intractable, without status epilepticus; K21.9 Gastro-esophageal reflux disease without esophagitis; F41.9 Anxiety disorder, unspecified; Z79.899 Other long term (current) drug therapy; Z79.84 Long term (current) use of oral hypoglycemic drugs; Z88.1 Allergy status to other antibiotic agents; Z88.8 Allergy status to other drugs, medicaments and biological substances; Z91.018 Allergy to other foods; Z87.891 Personal history of nicotine dependence; Z99.89 Dependence on other enabling machines and devices; Z86.73 Personal history of transient ischemic attack (TIA), and cerebral infarction without residual deficits
CPT/HCPCS: 99283

== ENCOUNTER 2020-01-08 06:02 | Day surgery (SDC) | payer OTHER ==
[2020-01-06 08:39] VITALS: BMI 34.0
[2020-01-08 06:29] VITALS: RESP 16; TEMP 97.8
[2020-01-08 06:29] LABS: Glucose,Whole Blood 95 mg/dL (75-99)
[2020-01-08] MEDS ORDERED: PROPOFOL 10 MG/ML 20 ML VIAL IV ONE (07:39)
--- NOTE | 2020-01-08 07:40 | P.GSHP ---
History of Present Illness H&P Date: 01/08/20 Chief Complaint: Screening colonoscopy This a 50-year-old female presents today for screening colonoscopy. Patient denies a significant GI complaints. Past Medical History Past Medical History: Asthma, CVA/TIA, Diabetes Mellitus, Deep Vein Thrombosis (DVT), GERD/Reflux, Hyperlipidemia, Hypertension, Musculoskeletal Disorder, Osteoarthritis (OA), Seizure Disorder, Sleep Apnea/CPAP/BIPAP Additional Past Medical History / Comment(s): CHRONIC BACK PAIN , DDD, OCCASIONAL SCIATICA, HX OF SHATTERED TAILBONE, CHRONIC CERVICAL PAIN WITH SPURS , Hx grand mal seizure with comprehension issues/loss of memory ever since (2016), "black outs" -no known cause, Hx of diverticulitis/colitis with bowel resection., constipation, overactive bladder, kidney stones., last seizure November 2019, 03/2019- TIA. , shingles, DVT right leg-states taking eliquis for 6 months., Torn meniscus left knee., sleep apnea (no machine) History of Any Multi-Drug Resistant Organisms: MRSA Date of last positivie culture/infection: 07/12/19 MDRO Source:: belly button & nose Past Surgical History: Appendectomy, Bowel Resection, Cholecystectomy, Heart Catheterization, Hysterectomy, Orthopedic Surgery, Tubal Ligation, Uterine Ablation Additional Past Surgical History / Comment(s): Bowel resection for colitis/div erticulitis, EGDs, colonoscopies, loop recorder now removed, multiple pain clinic procedures, bilateral rotator cuff surgery, R hand ganglion cyst removed 3 times, tilt table test, MRI with anesthesia d/t claustrophobia., BREE BICEP SURGERY Past Anesthesia/Blood Transfusion Reactions: No Reported Reaction, Motion Sickness Type of Cardiac Device: Loop Device Placement Date:: MAR 2009 AND 2013 Past Psychological History: Anxiety Additional Psychological History / Comment(s): . Smoking Status: Former smoker Past Alcohol Use History: None Reported Additional Past Alcohol Use History / Comment(s): Light smoker from 2001 until 2009. , SMOKED 1 PACK EVERY 3-4 DAYS. Past Drug Use History: None Reported - Past Family History Mother Family Medical History: Cancer Additional Family Medical History / Comment(s): Uterine cancer. Father Family Medical History: Cancer Additional Family Medical History / Comment(s): L lung cancer Medications and Allergies Home Medications Medication Instructions Recorded Confirmed Type Docusate Sodium [Dulcolax Stool 100 mg PO HS PRN 03/03/14 01/08/20 History Softener] Omeprazole [PriLOSEC] 20 mg PO BID 04/03/14 01/08/20 History Albuterol Inhaler (Mhu) [Ventolin 2 puff INHALATION QID PRN 11/23/14 01/08/20 History Hfa Inhaler (Mhu)] Azelastine HCl [Optivar 0.05% 1 drop BOTH EYES DAILY 06/12/16 01/08/20 History Ophth Soln] Fenofibrate 160 mg PO HS 06/12/16 01/08/20 History OXcarbazepine [Oxtellar Xr] 900 mg PO QAM 06/12/16 01/08/20 History Prochlorperazine [Compazine] 10 mg PO TID PRN 06/12/16 01/08/20 History Verapamil HCl [Verapamil ER] 120 mg PO QAM 06/12/16 01/08/20 History Cetirizine HCl 10 mg PO DAILY 05/01/17 01/08/20 History Gabapentin 600 mg PO TID 06/07/18 01/08/20 History metFORMIN HCL [metFORMIN HCL ER] 500 mg PO BID 06/07/18 01/08/20 History Famotidine [Pepcid] 40 mg PO DAILY 09/19/18 01/08/20 History HYDROcodone/APAP 10-325MG [[place] 1 tab PO TID 09/19/18 01/08/20 History 10-325] Lidocaine 2% Gel [Xylocaine Jelly 1 applic TOPICAL BID 02/20/19 01/08/20 History 2%] Albuterol Nebulized [Ventolin 2.5 mg INHALATION RT-QID PRN 04/07/19 01/08/20 History Nebulized] Butalb/APAP/Caff 50-325-40Mg 1 tab PO Q8H PRN 04/07/19 01/08/20 History [Fioricet 50-325-40] Citalopram Hydrobromide [CeleXA] 20 mg PO DAILY 04/07/19 01/08/20 History Oxybutynin ER [Ditropan Xl] 15 mg PO DAILY 04/07/19 01/08/20 History Losartan [Cozaar] 50 mg PO DAILY 04/21/19 01/08/20 History Apixaban [Eliquis] 5 mg PO BID 01/06/20 01/08/20 History Atorvastatin [Lipitor] 40 mg PO DAILY 01/06/20 01/08/20 History Enoxaparin [Lovenox] 30 mg SQ DAILY 01/08/20 01/08/20 History Allergies Allergy/AdvReac Type Severity Reaction Status Date / Time azithromycin Allergy Swelling Verified 01/08/20 06:17 [From Zithromax Z-Brayden] ondansetron HCl Allergy Vomiting Verified 01/08/20 06:17 [From Zofran (as hydrochloride)] onion Allergy Swelling Verified 01/08/20 06:17 Surgical - Exam Vital Signs Temp Pulse Resp BP Pulse Ox 97.8 F 88 16 120/71 97 01/08/20 06:23 01/08/20 06:23 01/08/20 06:23 01/08/20 06:23 01/08/20 06:23 - General well developed, well nourished, no distress - Eyes PERRL - ENT normal pinna - Neck no masses - Respiratory normal expansion - Cardiovascular Rhythm: regular - Abdomen Abdomen: soft, non tender Assessment and Plan Assessment: We'll perform screening colonoscopy.
--- NOTE | 2020-01-08 07:57 | P.OP ---
Date of Procedure: 01/08/20 Preoperative Diagnosis: Screening colonoscopy Postoperative Diagnosis: Diverticulosis Right colon polyp Procedure(s) Performed: Colonoscopy Anesthesia: MAC Surgeon: Michael Gong Pathology: other (Right colon polyp) Condition: stable Disposition: PACU Description of Procedure: The patient's placed on the endoscopy table in the lateral position. She received IV sedation. Digital rectal exam was performed which revealed a few external hemorrhage. The flexible colonoscope was then placed patient anus passed throughout the entire colon. The ileocecal valve was visualized. The cecum appeared normal. Just above the cecum there is small sessile polyp was removed with the cold forcep. Scope was withdrawn remainder the ascending, transverse and descending colon appeared normal. In the distal sigmoid appeared to be evidence of diverticular changes. Scope was then brought back the rectum this appeared normal. Scope was withdrawn for patient.
[2020-01-08 08:01] VITALS: BP 122/78
[2020-01-08 08:14] VITALS: PULSE 72
--- NOTE | 2020-01-12 08:54 | CDI ---
Date: 01.12.2020 CDS/Cranberry Sorter Name: Elizabet Rosas Phone: If any questions, call Tana Burton Experimental Box Tester at [phone] Patient Name: Apoorva Fitzpatrick Admit Date: 01.08.20 Discharge Date: 01.08.20 ATTENTION: The [facility] Coding Staff appreciate your assistance in clarifying documentation. Please respond to the clarification below the line at the bottom and electronically sign. The [facility] Coding staff will review the response and follow-up if needed. Please note: Queries are made part of the Legal Health Record. If you have any questions, please contact the Experimental Box Tester. Dear Dr. Gong In your Colonoscopy report you have documented revealed a few external hemorrhage is this a typographical error? Please clarify. Thank you for your kind consideration. A few external hemorrhoids MTDD
== END 2020-01-08 08:28 | disposition home or self-care (01) ==
LOC: ORWHC2ENDO 06:02
PROVIDERS: ATTEND Surgery
DX: Z12.11 Encounter for screening for malignant neoplasm of colon (principal); K63.5 Polyp of colon; K57.30 Diverticulosis of large intestine without perforation or abscess without bleeding; K64.4 Residual hemorrhoidal skin tags; J45.909 Unspecified asthma, uncomplicated; E11.9 Type 2 diabetes mellitus without complications; K21.9 Gastro-esophageal reflux disease without esophagitis; E78.5 Hyperlipidemia, unspecified; I10 Essential (primary) hypertension; M19.90 Unspecified osteoarthritis, unspecified site; G40.409 Other generalized epilepsy and epileptic syndromes, not intractable, without status epilepticus; G89.29 Other chronic pain; M54.9 Dorsalgia, unspecified; M51.9 Unspecified thoracic, thoracolumbar and lumbosacral intervertebral disc disorder; M46.02 Spinal enthesopathy, cervical region; N32.81 Overactive bladder; F40.240 Claustrophobia; F41.9 Anxiety disorder, unspecified; G47.33 Obstructive sleep apnea (adult) (pediatric); Z86.73 Personal history of transient ischemic attack (TIA), and cerebral infarction without residual deficits; Z86.718 Personal history of other venous thrombosis and embolism; Z87.81 Personal history of (healed) traumatic fracture; Z87.19 Personal history of other diseases of the digestive system; Z90.49 Acquired absence of other specified parts of digestive tract; Z87.442 Personal history of urinary calculi; Z86.19 Personal history of other infectious and parasitic diseases; Z87.39 Personal history of other diseases of the musculoskeletal system and connective tissue; Z79.01 Long term (current) use of anticoagulants; Z86.14 Personal history of Methicillin resistant Staphylococcus aureus infection; Z98.890 Other specified postprocedural states; Z90.710 Acquired absence of both cervix and uterus; Z98.51 Tubal ligation status; Z87.891 Personal history of nicotine dependence; Z87.898 Personal history of other specified conditions; Z79.899 Other long term (current) drug therapy; Z79.84 Long term (current) use of oral hypoglycemic drugs; Z79.891 Long term (current) use of opiate analgesic; Z88.1 Allergy status to other antibiotic agents; Z88.8 Allergy status to other drugs, medicaments and biological substances; Z91.018 Allergy to other foods; Z91.19 Patient's noncompliance with other medical treatment and regimen; Z80.49 Family history of malignant neoplasm of other genital organs; Z80.1 Family history of malignant neoplasm of trachea, bronchus and lung
CPT/HCPCS: 88305; 45380; J2704

== ENCOUNTER → 2020-01-15 | Outpatient (CLI) | payer OTHER ==
--- NOTE | 2020-01-15 12:57 | XR ---
EXAMINATION TYPE: XR knee complete LT DATE OF EXAM: 01/15/2020 CLINICAL HISTORY: Hit left knee on steel table. History of meniscal tear. TECHNIQUE: AP, oblique, and lateral views of the left knee are obtained. COMPARISON: None. FINDINGS: There is no acute fracture/dislocation evident in left knee. Quadriceps tendon patellar en thesophyte. The tri-compartment joint spaces appear within normal limits. No joint effusion. The ov erlying soft tissue appears unremarkable. IMPRESSION: There is no acute fracture or dislocation in the left knee.
== END | disposition home or self-care (01) ==
LOC: RADXRMAIN 11:53
PROVIDERS: ATTEND Family Medicine
DX: M54.00 Panniculitis affecting regions of neck and back, site unspecified (principal)

== ENCOUNTER 2020-02-29 21:47 | Observation (INO) | payer OTHER ==
--- NOTE | 2020-02-29 22:58 | XR ---
EXAMINATION TYPE: XR chest 2V DATE OF EXAM: 02/29/2020 COMPARISON: 08/22/2019 HISTORY: Chest pain TECHNIQUE: FINDINGS: There is no heart failure nor confluent pneumonic infiltrate. Costophrenic angles are clear . There are chest leads. The bony thorax is intact. Diaphragm is normal. IMPRESSION: No active cardiopulmonary disease. Normal heart. No change.
[2020-02-29 23:07] LABS: Basophils # (A) 0.1 k/uL (0-0.2); Basophils % (A) 1 %; Eosinophils # (A) 0.3 k/uL (0-0.7); Eosinophils % (A) 4 %; HCT 40.4 % (34.0-46.0); HGB 13.5 gm/dL (11.4-16.0); Lymphocytes # (A) 2.3 k/uL (1.0-4.8); Lymphocytes % (A) 30 %; MCH 30.9 pg (25.0-35.0); MCHC 33.4 g/dL (31.0-37.0); MCV 92.6 fL (80.0-100.0); Mean Platelet Volume 7.2; Monocytes # (A) 0.5 k/uL (0-1.0); Monocytes % (A) 6 %; Neutrophils # (A) 4.4 k/uL (1.3-7.7); Neutrophils % (A) 57 %; Platelet Count 271 k/uL (150-450); RBC 4.37 m/uL (3.80-5.40); RDW 13.2 % (11.5-15.5); WBC 7.7 k/uL (3.8-10.6)
[2020-02-29] MEDS ORDERED: ASPIRIN 81 MG PO STA (23:15)
[2020-02-29] MEDS ORDERED: MORPHINE SULFATE 4 MG/ML SYRINGE IVP STA (23:15)
--- NOTE | 2020-02-29 23:16 | ED ---
Chest Pain HPI - General Chief Complaint: Chest Pain Stated Complaint: Chest Pain Time Seen by Provider: 02/29/20 22:33 Source: patient, Caregiver Mode of arrival: wheelchair - History of Present Illness Initial Comments: Apoorva is a 50-year-old female with a history of CVA in the past, DVTs in the past currently on L [place]. Patient presents the ER today for evaluation of left-sided and retrosternal chest pain that radiates to the left shoulder. Patient reports pain began this evening while watching TV. Pain is not exertional not associated with any diaphoresis lightheadedness or shortness of breath. She has no fevers or chills. She has no nausea or vomiting. No cardiac history. - Related Data Home Medications Medication Instructions Recorded Confirmed Docusate Sodium [Dulcolax Stool 100 mg PO HS PRN 03/03/14 01/08/20 Softener] Omeprazole [PriLOSEC] 20 mg PO BID 04/03/14 01/08/20 Albuterol Inhaler (Mhu) [Ventolin 2 puff INHALATION QID PRN 11/23/14 01/08/20 Hfa Inhaler (Mhu)] Azelastine HCl [Optivar 0.05% 1 drop BOTH EYES DAILY 06/12/16 01/08/20 Ophth Soln] Fenofibrate 160 mg PO HS 06/12/16 01/08/20 OXcarbazepine [Oxtellar Xr] 900 mg PO QAM 06/12/16 01/08/20 Prochlorperazine [Compazine] 10 mg PO TID PRN 06/12/16 01/08/20 Verapamil HCl [Verapamil ER] 120 mg PO QAM 06/12/16 01/08/20 Cetirizine HCl 10 mg PO DAILY 05/01/17 01/08/20 Gabapentin 600 mg PO TID 06/07/18 01/08/20 metFORMIN HCL [metFORMIN HCL ER] 500 mg PO BID 06/07/18 01/08/20 Famotidine [Pepcid] 40 mg PO DAILY 09/19/18 01/08/20 HYDROcodone/APAP 10-325MG [[place] 1 tab PO TID 09/19/18 01/08/20 10-325] Lidocaine 2% Gel [Xylocaine Jelly 1 applic TOPICAL BID 02/20/19 01/08/20 2%] Albuterol Nebulized [Ventolin 2.5 mg INHALATION RT-QID PRN 04/07/19 01/08/20 Nebulized] Butalb/APAP/Caff 50-325-40Mg 1 tab PO Q8H PRN 04/07/19 01/08/20 [Fioricet 50-325-40] Citalopram Hydrobromide [CeleXA] 20 mg PO DAILY 04/07/19 01/08/20 Oxybutynin ER [Ditropan Xl] 15 mg PO DAILY 04/07/19 01/08/20 Losartan [Cozaar] 50 mg PO DAILY 04/21/19 01/08/20 Apixaban [Eliquis] 5 mg PO BID 01/06/20 01/08/20 Atorvastatin [Lipitor] 40 mg PO DAILY 01/06/20 01/08/20 Enoxaparin [Lovenox] 30 mg SQ DAILY 01/08/20 01/08/20 Allergies Allergy/AdvReac Type Severity Reaction Status Date / Time azithromycin Allergy Swelling Verified 02/29/20 21:55 [From Zithromax Z-Brayden] ondansetron HCl Allergy Vomiting Verified 02/29/20 21:55 [From Zofran (as hydrochloride)] onion Allergy Swelling Verified 02/29/20 21:55 Review of Systems ROS Statement: Those systems with pertinent positive or pertinent negative responses have been documented in the HPI. ROS Other: All systems not noted in ROS Statement are negative. EKG Findings - EKG Comments: EKG Findings:: EKG was obtained due to complaint of chest pain, EKG was obtained at 2220, rate is 81, rhythm is sinus there is a normal axis, normal intervals, NC 142, QRS 80, QTC is 455 there are no acute ST elevations or depressions there is no evidence of acute ischemia or infarction Past Medical History Past Medical History: Asthma, CVA/TIA, Diabetes Mellitus, Deep Vein Thrombosis (DVT), GERD/Reflux, Hyperlipidemia, Hypertension, Musculoskeletal Disorder, Osteoarthritis (OA), Seizure Disorder, Sleep Apnea/CPAP/BIPAP Additional Past Medical History / Comment(s): CHRONIC BACK PAIN , DDD, OCCASIONAL SCIATICA, HX OF SHATTERED TAILBONE, CHRONIC CERVICAL PAIN WITH SPURS , grand mal seizure with comprehension issues/loss of memory ever since (2016), "black outs" -no known cause,diverticulitis/colitis, constipation, overactive bladder, kidney stones., LAST SEIZURE May 2019, 03/2019- TIA. , WEARS BACK BRACE, shingles, on Rx for UTI, starting topical for vaginal yeast infection, stroke october 2019 History of Any Multi-Drug Resistant Organisms: MRSA Date of last positivie culture/infection: 07/12/19 MDRO Source:: belly button Past Surgical History: Appendectomy, Bowel Resection, Cholecystectomy, Heart Catheterization, Hysterectomy, Orthopedic Surgery, Tubal Ligation, Uterine Ablation Additional Past Surgical History / Comment(s): Bowel resection for colitis/diverticulitis, EGDs, colonoscopies, loop recorder now removed, multiple pain clinic procedures, bilateral rotator cuff surgery, R hand ganglion cyst removed 3 times, tilt table test, MRI with anesthesia d/t claustrophobia., BREE BICEP SURGERY Past Anesthesia/Blood Transfusion Reactions: Motion Sickness Type of Cardiac Device: Loop Device Placement Date:: MAR 2009 AND 2013 Past Psychological History: Anxiety Smoking Status: Former smoker Past Alcohol Use History: None Reported Past Drug Use History: None Reported - Past Family History Mother Family Medical History: Cancer Additional Family Medical History / Comment(s): Uterine cancer. Father Family Medical History: Cancer Additional Family Medical History / Comment(s): L lung cancer General Exam - General Exam Comments Initial Comments: Physical Exam GENERAL: Patient is well-developed and well-nourished. Patient is nontoxic and well-hydrated and is in no distress. Obese HENT: Normocephalic, Atraumatic. EYES: PERRL, EOMI PULMONARY: Unlabored respirations. No audible rales rhonchi or wheezing was noted. CARDIOVASCULAR: There is a regular rate and rhythm without any murmurs gallops or rubs. ABDOMEN: Soft and nontender with normal bowel sounds. SKIN: Skin is clear with no lesions or rashes and otherwise unremarkable. : Deferred NEUROLOGIC: Patient is alert and oriented x3. MUSCULOSKELETAL: No injury No lower extremity edema PSYCHIATRIC: Normal psychiatric evaluation. Course Vital Signs 02/29/20 02/29/20 02/29/20 21:52 23:39 23:55 Temperature 98 F Pulse Rate 87 78 79 Respiratory 18 16 19 Rate Blood Pressure 164/99 141/101 136/92 O2 Sat by Pulse 99 97 98 Oximetry 03/01/20 01:08 Temperature Pulse Rate 75 Respiratory 19 Rate Blood Pressure 126/83 O2 Sat by Pulse 98 Oximetry Chest Pain [facility] - MDM The patient was seen and evaluated history is obtained from the patient History and physical exam are relatively unremarkable patient does have risk factors for coronary artery disease including CVA in the past, patient's currently anticoagulated on L [place] EKG is nonischemic Chest x-ray and labs are unremarkable including a negative troponin and d-dimer that is not elevated Patient is not tachycardic, not hypoxic and has a negative d-dimer at this time I do not feel that a CT angiography is indicated Care was discussed her primary care physician Dr. Brown who is familiar with the patient and agrees to keep the patient in observation for trending troponins and evaluation by cardiology Disposition Clinical Impression: Chest pain Disposition: ADMITTED IP TO THIS HOSP Condition: Stable Referrals: Connor King Jr, DO [Primary Care Provider] - 1-2 days
[2020-02-29 23:25] LABS: D-Dimer 0.26 mg/L FEU (<0.60); Partial Thromboplastin Time 25.4 sec (22.0-30.0); Prothrombin Time 10.2 sec (9.0-12.0)
[2020-02-29 23:30] LABS: ALT 49 U/L (4-34); AST 42 U/L (14-36); African American GFR (CKD) >90 (>60 ml/min/1.73 sqM); Albumin 4.3 g/dL (3.5-5.0); Alkaline Phosphatase 111 U/L (38-126); Anion Gap 10 mmol/L; Blood Urea Nitrogen 8 mg/dL (7-17); Calcium 9.4 mg/dL (8.4-10.2); Carbon Dioxide 27 mmol/L (22-30); Chloride 102 mmol/L (98-107); Glucose 111 mg/dL (74-99); Magnesium 1.8 mg/dL (1.6-2.3); Non-African American GFR(CKD) >90 (>60 ml/min/1.73 sqM); Sodium 139 mmol/L (137-145); Total Bilirubin 0.2 mg/dL (0.2-1.3); Total Protein 7.7 g/dL (6.3-8.2)
[2020-03-01] MEDS ORDERED: NITROGLYCERIN SL TABS 0.4 MG TAB SUBLINGUAL PRN (01:26)
[2020-03-01] MEDS ORDERED: DOCUSATE 100 MG CAP PO PRN (05:56)
[2020-03-01] MEDS ORDERED: ALBUTEROL NEBULIZED 2.5 MG/3 ML INHALATION PRN ×2 (05:56→06:00)
[2020-03-01] MEDS ORDERED: ONDANSETRON 4 MG/2 ML VIAL IVP PRN (06:06)
[2020-03-01] MEDS ORDERED: IBUPROFEN 800 MG TAB PO SCH (08:00)
[2020-03-01 08:15] VITALS: BP 144/94; PULSE 77; RESP 18; TEMP 97.8
[2020-03-01] MEDS ORDERED: PANTOPRAZOLE 40 MG TABLET PO SCH (09:00)
[2020-03-01] MEDS ORDERED: LOSARTAN 50 MG TAB PO SCH (09:00)
[2020-03-01] MEDS ORDERED: LIDOCAINE 2% GEL 30 ML TUBE TOPICAL SCH (09:00)
[2020-03-01] MEDS ORDERED: VERAPAMIL SR 120 MG TABLET.ER PO SCH (09:00)
[2020-03-01] MEDS ORDERED: GABAPENTIN 300 MG CAP PO SCH (09:00)
[2020-03-01] MEDS ORDERED: APIXABAN 5 MG TAB PO SCH (09:00)
[2020-03-01] MEDS ORDERED: PROCHLORPERAZINE 10 MG TAB PO PRN (09:00)
[2020-03-01] MEDS ORDERED: KETOTIFEN 0.025% OPHTH DROPS 5 ML BTL BOTH EYES SCH (09:00)
[2020-03-01] MEDS ORDERED: metFORMIN 500 MG TAB PO SCH (09:00)
[2020-03-01] MEDS ORDERED: OXCARBAZEPINE 900 MG PO SCH (09:00)
[2020-03-01] MEDS ORDERED: LORATADINE 10 MG TAB PO SCH (09:00)
[2020-03-01] MEDS ORDERED: OXYBUTYNIN 15 MG TAB.ER.24 PO SCH (09:00)
[2020-03-01] MEDS ORDERED: ASPIRIN 81 MG PO SCH (09:00)
[2020-03-01] MEDS ORDERED: FAMOTIDINE 20 MG TAB PO SCH (09:00)
[2020-03-01] MEDS ORDERED: ATORVASTATIN 40 MG TAB PO SCH (09:00)
[2020-03-01] MEDS ORDERED: CITALOPRAM HYDROBROMIDE 20 MG TAB PO SCH (09:00)
--- NOTE | 2020-03-01 11:43 | P.HPIM ---
History of Present Illness Chief Complaint: Chest pain This is a 50-year-old female with a history of the CVA, and DVT/PE. She is on long-term anticoagulation with Elequis. She reports midsternal chest pain that radiated to her left shoulder starting yesterday. She said it was just constant but worsened after visiting her mom became quite severe. She indicates that she has had a stress test about [address] Villalta was negative. She indicates that yesterday she was lifting heavy objects with her . She denies any shortness of breath, nausea, vomiting, fever or chills, diarrhea or constipation recently. She does have a history of inner ear vertigo issues and seizure disorder along with type 2 diabetes. This a.m., serial troponins are negative. EKG done in the emergency room showed normal sinus rhythm. Chest x-ray yesterday was also normal. Patient indicates pain is improved. She has more midepigastric pain at this time. Review of Systems All systems: negative Past Medical History Past Medical History: Asthma, CVA/TIA, Diabetes Mellitus, Deep Vein Thrombosis (DVT), GERD/Reflux, Hyperlipidemia, Hypertension, Musculoskeletal Disorder, Osteoarthritis (OA), Seizure Disorder, Sleep Apnea/CPAP/BIPAP Additional Past Medical History / Comment(s): CHRONIC BACK PAIN , DDD, OCCASIONAL SCIATICA, HX OF SHATTERED TAILBONE, CHRONIC CERVICAL PAIN WITH SPURS , grand mal seizure with comprehension issues/loss of memory ever since (2017), "black outs" -no known cause,diverticulitis/colitis, constipation, overactive bladder, kidney stones., LAST SEIZURE May 2019, 03/2019- TIA. , WEARS BACK BRACE, shingles, on Rx for UTI, starting topical for vaginal yeast infection, stroke october 2019 History of Any Multi-Drug Resistant Organisms: MRSA Date of last positivie culture/infection: 07/12/19 MDRO Source:: matilda gonsalez Past Surgical History: Appendectomy, Bowel Resection, Cholecystectomy, Heart Catheterization, Hysterectomy, Orthopedic Surgery, Tubal Ligation, Uterine Ablation Additional Past Surgical History / Comment(s): Bowel resection for colitis/diverticulitis, EGDs, colonoscopies, loop recorder now removed, multiple pain clinic procedures, bilateral rotator cuff surgery, R hand ganglion cyst removed 3 times, tilt table test, MRI with anesthesia d/t claustrophobia., BREE BICEP SURGERY Past Anesthesia/Blood Transfusion Reactions: Motion Sickness Type of Cardiac Device: Loop Device Placement Date:: MAR 2009 AND 2013 Past Psychological History: Anxiety Additional Psychological History / Comment(s): . Smoking Status: Former smoker Past Alcohol Use History: None Reported Additional Past Alcohol Use History / Comment(s): Light smoker from 2001 until 2009. , SMOKED 1 PACK EVERY 3-4 DAYS. Past Drug Use History: None Reported - Past Family History Mother Family Medical History: Cancer Additional Family Medical History / Comment(s): Uterine cancer. Father Family Medical History: Cancer Additional Family Medical History / Comment(s): L lung cancer Medications and Allergies Home Medications Medication Instructions Recorded Confirmed Type Docusate Sodium [Dulcolax Stool 100 mg PO HS PRN 03/03/14 03/01/20 History Softener] Omeprazole [PriLOSEC] 20 mg PO BID 04/03/14 03/01/20 History Albuterol Inhaler (Mhu) [Ventolin 2 puff INHALATION QID PRN 11/23/14 03/01/20 History Hfa Inhaler (Mhu)] Azelastine HCl [Optivar 0.05% 1 drop BOTH EYES DAILY 06/12/16 03/01/20 History Ophth Soln] OXcarbazepine [Oxtellar Xr] 900 mg PO QAM 06/12/16 03/01/20 History Prochlorperazine [Compazine] 10 mg PO TID PRN 06/12/16 03/01/20 History Verapamil HCl [Verapamil ER] 120 mg PO QAM 06/12/16 03/01/20 History Cetirizine HCl 10 mg PO DAILY 05/01/17 03/01/20 History Gabapentin 600 mg PO TID 06/07/18 03/01/20 History metFORMIN HCL [metFORMIN HCL ER] 500 mg PO BID 06/07/18 03/01/20 History Famotidine [Pepcid] 40 mg PO DAILY 09/19/18 03/01/20 History HYDROcodone/APAP 10-325MG [[place] 1 tab PO TID 09/19/18 03/01/20 History 10-325] Lidocaine 2% Gel [Xylocaine Jelly 1 applic TOPICAL BID 02/20/19 03/01/20 History 2%] Albuterol Nebulized [Ventolin 2.5 mg INHALATION RT-QID PRN 04/07/19 03/01/20 History Nebulized] Butalb/APAP/Caff 50-325-40Mg 1 tab PO Q8H PRN 04/07/19 03/01/20 History [Fioricet 50-325-40] Citalopram Hydrobromide [CeleXA] 20 mg PO DAILY 04/07/19 03/01/20 History Oxybutynin ER [Ditropan Xl] 15 mg PO DAILY 04/07/19 03/01/20 History Losartan [Cozaar] 50 mg PO DAILY 04/21/19 03/01/20 History Apixaban [Eliquis] 5 mg PO BID 01/06/20 03/01/20 History Atorvastatin [Lipitor] 40 mg PO DAILY 01/06/20 03/01/20 History Aspirin 80 mg PO DAILY 03/01/20 03/01/20 History Ibuprofen 800 mg PO Q8HR 03/01/20 03/01/20 History Allergies Allergy/AdvReac Type Severity Reaction Status Date / Time azithromycin Allergy Swelling Verified 02/29/20 21:55 [From Zithromax Z-Brayden] ondansetron HCl Allergy Vomiting Verified 02/29/20 21:55 [From Zofran (as hydrochloride)] onion Allergy Swelling Verified 02/29/20 21:55 Physical Exam Vitals: Vital Signs Temp Pulse Pulse Resp BP BP Pulse Ox 03/01/20 08:31 77 18 03/01/20 08:15 97.8 F 77 18 144/94 99 03/01/20 03:18 96 03/01/20 03:03 97.5 F L 80 16 129/86 96 03/01/20 03:00 80 16 03/01/20 02:27 73 19 126/89 96 03/01/20 01:08 75 19 126/83 98 02/29/20 23:55 79 19 136/92 98 02/29/20 23:39 78 16 141/101 97 02/29/20 21:52 98 F 87 18 164/99 99 Intake and Output 02/29/20 03/01/20 03/01/20 22:59 06:59 14:59 Other: Voiding Method Toilet Toilet # Voids 1 1 Weight 83.461 kg 83.461 kg GENERAL: Well-appearing, elderly obese female in no acute distress. HEAD: Atraumatic, normocephalic. EYES: , extraocular movements intact, sclera anicteric, conjunctiva are normal. ENT:nares patent, oropharynx clear without exudates. Moist mucous membranes. NECK: Normal range of motion, supple without lymphadenopathy or JVD, no thyromegaly LUNGS: Breath sounds clear to auscultation bilaterally and equal. No wheezes rales or rhonchi. HEART: Regular rate and rhythm without murmurs, rubs or gallops.S1S2 Normal ABDOMEN: Soft, normoactive bowel sounds. No guarding, no rebound. No masses appreciated. Midepigastric tenderness to palpation. EXTREMITIES: Normal range of motion, trace to +1 pitting edema. No clubbing or cyanosis. NEUROLOGICAL: Cranial nerves II through XII grossly intact. Normal speech, normal gait. PSYCH: Normal mood, normal affect. SKIN: Warm, Dry, normal turgor, no rashes or lesions noted. Results CBC & Chem 7: 02/29/20 22:39 02/29/20 22:39 Labs: Abnormal Lab Results - Last 24 Hours (Table) 02/29/20 Range/Units 22:39 Glucose 111 H (74-99) mg/dL AST 42 H (14-36) U/L ALT 49 H (4-34) U/L Chest x-ray: report reviewed Thrombosis Risk Factor Assmnt - DVT/VTE Prophylaxis DVT/VTE Prophylaxis: Pharmacologic Prophylaxis ordered - Choose All That Apply Each Factor Represents 1 point: Age 41-60 years, Obesity (BMI >25) Each Risk Factor Represents 3 Points: History of DVT/PE Thrombosis Risk Factor Assessment Total Risk Factor Score: 5 Thrombosis Risk Factor Assessment Level: High Risk Assessment and Plan (1) Chest pain Current Visit: Yes Status: Acute Code(s): R07.9 - CHEST PAIN, UNSPECIFIED SNOMED Code(s): 46979795 (2) terminal worker (current) use of anticoagulants Current Visit: Yes Status: Acute Code(s): Z79.01 - BIOANALYST (CURRENT) USE OF ANTICOAGULANTS SNOMED Code(s): 824387191 (3) H/O: CVA (cerebrovascular accident) Current Visit: Yes Status: Acute Code(s): Z86.73 - PRSNL HX OF TIA (TIA), AND CEREB INFRC W/O RESID DEFICITS SNOMED Code(s): 066484708 (4) History of pulmonary embolism Current Visit: Yes Status: Acute Code(s): Z86.711 - PERSONAL HISTORY OF PULMONARY EMBOLISM SNOMED Code(s): 099275626 (5) Asthma Current Visit: No Status: Acute Code(s): J45.909 - UNSPECIFIED ASTHMA, UNCOMPLICATED SNOMED Code(s): 069274507 (6) Cervical spondylosis without myelopathy Current Visit: No Status: Acute Code(s): M47.812 - SPONDYLOSIS W/O MYELOPATHY OR RADICULOPATHY, CERVICAL REGION SNOMED Code(s): 475395511 (7) Diabetes Current Visit: No Status: Acute Code(s): E11.9 - TYPE 2 DIABETES MELLITUS WITHOUT COMPLICATIONS SNOMED Code(s): 49802252 (8) Essential (primary) hypertension Current Visit: No Status: Acute Code(s): I10 - ESSENTIAL (PRIMARY) HYPERTENSION SNOMED Code(s): 97606432 (9) Chronic pain syndrome Current Visit: No Status: Chronic Code(s): G89.4 - CHRONIC PAIN SYNDROME SNOMED Code(s): 181068807 (10) Obesity Current Visit: Yes Status: Acute Code(s): E66.9 - OBESITY, UNSPECIFIED SNOMED Code(s): 976614714 Plan: Consult cardiology and when on the recommendations. Accu-Cheks before meals and at bedtime, Insulin scale. Check hemoglobin A1c. Recheck abnormal liver function tests, which were mildly elevated. Repeat labs in a.m., reevaluate next 24 hours.
[2020-03-01] MEDS ORDERED: INSULIN ASPART (NovoLOG) 100 UNIT/ML VIAL SQ SCH (12:30)
[2020-03-01 12:58] LABS: Glucose,Whole Blood 89 mg/dL (75-99)
--- NOTE | 2020-03-01 15:26 | P.CRDCN ---
History of Present Illness Consult date: 03/01/20 Consult reason: chest pain History of present illness: HISTORY OF PRESENTING ILLNESS This is a pleasant 50-year-old female who normally sees Dr. Villalta. Patient has a history of a DVT on anticoagulation for proximally 4 months, hypertension, prior TIA, seizure disorder. She states that from a heart standpoint she has been doing well without any history of heart attack, stents or arrhythmias. She does have a history of a loop recorder placed in the past. She admits that she developed midsternal chest pain that radiated to her left s houlder which started yesterday. Family admits that she had been doing strenuous work moving boxes the day before. She denies any specific alleviating or worsening maneuvers. She admits the chest pain has since resolved. She did have a normal stress test approximately 2 months ago. No associated nausea, diaphoresis, shortness breath or palpitations. DIAGNOSTICS EKG reveals normal sinus rhythm, normal axis, no ST or T-wave abnormalities. Chest xray no acute process. Laboratory reviewed, white blood cell count 7.7, hemoglobin 13.5, platelets 271. Creatinine 0.75, AST 42, ALT 49, troponin negative 3, proBNP 31 Current cardiac medications include Eliquis 5 mg daily, aspirin 81 mg daily, Lipitor 40 mg daily, losartan 50 mg daily, verapamil 120 mg daily. REVIEW OF SYSTEMS At the time of my exam: CONSTITUTIONAL: Denies fever or chills. CARDIOVASCULAR: +chest pain, no shortness of breath, orthopnea, PND or palpitations. RESPIRATORY: Denies cough. GASTROINTESTINAL: Denies abdominal pain, diarrhea, constipation, nausea or vomiting. MUSCULOSKELETAL: Denies myalgias. NEUROLOGIC: Denies numbness, tingling or weakness. ENDOCRINE: Denies fatigue, weight change, polydipsia or polyurina. GENITOURINARY: Denies burning, hematuria or urgency with micturation. HEMATOLOGIC: Denies history of anemia or bleeding. PHYSICAL EXAMINATION Blood pressure 144/94 heart rate 77 afebrile and maintaining oxygen saturation on room air. CONSTITUTIONAL: No apparent distress. HEENT: Head is normocephalic. Pupils are equal, round. Sclerae anicteric. Mucous membranes of the mouth are moist. No JVD. No carotid bruit. CHEST EXAMINATION: Lungs are clear to auscultation. + Mild reproduction with pal pitation however not as severe as the day before. HEART EXAMINATION: Regular rate and rhythm. S1, S2 heard. No murmurs, gallops or rub. ABDOMEN: Soft, nontender. Positive bowel sounds. EXTREMITIES: 2+ peripheral pulses, no lower extremity edema and no calf tenderness. NEUROLOGIC EXAMINATION: Patient is awake, alert and oriented x3. ASSESSMENT 1. Atypical chest pain likely related to prior strenuous activity with moving boxes. Troponin negative 3, negative stress test in the office a few months ago. 2. Essential hypertension. 3. History of DVT on Eliquis 4. History of dyslipidemia on Lipitor 40 mg daily PLAN Patient's chest pain seems atypical and likely related to strenuous activity the day prior with moving boxes. Troponins have been negative 3. She has had recent stress testing a few months ago in the office. No further workup required in patient. Patient may be discharged home with outpatient follow-up. 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 , WEARS BACK BRACE, shingles, on Rx for UTI, starting topical for vaginal yeast infection, stroke october 2019 History of Any Multi-Drug Resistant Organisms: MRSA Date of last positivie culture/infection: 07/12/19 MDRO Source:: belly button Past Surgical History: Appendectomy, Bowel Resection, Cholecystectomy, Heart Catheterization, Hysterectomy, Orthopedic Surgery, Tubal Ligation, Uterine Ablation Additional Past Surgical History / Comment(s): Bowel resection for colitis/diverticulitis, EGDs, colonoscopies, loop recorder now removed, multiple pain clinic procedures, bilateral rotator cuff surgery, R hand ganglion cyst removed 3 times, tilt table test, MRI with anesthesia d/t claustrophobia., BREE BICEP SURGERY Past Anesthesia/Blood Transfusion Reactions: Motion Sickness Type of Cardiac Device: Loop Device Placement Date:: MAR 2009 AND 2013 Past Psychological History: Anxiety Additional Psychological History / Comment(s): . Smoking Status: Former smoker Past Alcohol Use History: None Reported Additional Past Alcohol Use History / Comment(s): Light smoker from 2001 until 2009. , SMOKED 1 PACK EVERY 3-4 DAYS. Past Drug Use History: None Reported - Past Family History Mother Family Medical History: Cancer Additional Family Medical History / Comment(s): Uterine cancer. Father Family Medical History: Cancer Additional Family Medical History / Comment(s): L lung cancer Medications and Allergies Home Medications Medication Instructions Recorded Confirmed Type Docusate Sodium [Dulcolax Stool 100 mg PO HS PRN 03/03/14 03/01/20 History Softener] Omeprazole [PriLOSEC] 20 mg PO BID 04/03/14 03/01/20 History Azelastine HCl [Optivar 0.05% 1 drop BOTH EYES BID 06/12/16 03/01/20 History Ophth Soln] OXcarbazepine [Oxtellar Xr] 900 mg PO QAM 06/12/16 03/01/20 History Prochlorperazine [Compazine] 10 mg PO TID PRN 06/12/16 03/01/20 History Verapamil HCl [Verapamil ER] 120 mg PO QAM 06/12/16 03/01/20 History Gabapentin 600 mg PO TID 06/07/18 03/01/20 History metFORMIN HCL [metFORMIN HCL ER] 500 mg PO BID 06/07/18 03/01/20 History Famotidine [Pepcid] 40 mg PO DAILY 09/19/18 03/01/20 History HYDROcodone/APAP 10-325MG [[place] 1 tab PO TID 09/19/18 03/01/20 History 10-325] Lidocaine 2% Gel [Xylocaine Jelly 1 applic TOPICAL BID PRN 02/20/19 03/01/20 History 2%] Albuterol Nebulized [Ventolin 2.5 mg INHALATION RT-TID PRN 04/07/19 03/01/20 History Nebulized] Butalb/APAP/Caff 50-325-40Mg 1 tab PO Q8H PRN 04/07/19 03/01/20 History [Fioricet 50-325-40] Citalopram Hydrobromide [CeleXA] 20 mg PO DAILY 04/07/19 03/01/20 History Oxybutynin ER [Ditropan Xl] 15 mg PO DAILY 04/07/19 03/01/20 History Losartan [Cozaar] 50 mg PO DAILY 04/21/19 03/01/20 History Apixaban [Eliquis] 5 mg PO BID 01/06/20 03/01/20 History Atorvastatin [Lipitor] 40 mg PO DAILY 01/06/20 03/01/20 History Albuterol Sulfate [Ventolin HFA] 2 puff INHALATION RT-QID PRN 03/01/20 03/01/20 History Aspirin 81 mg PO DAILY 03/01/20 03/01/20 History Fluticasone Nasal [place] [Flonase 2 spray EA NOSTRIL DAILY 03/01/20 03/01/20 History Nasal [place]] Ibuprofen 800 mg PO Q8HR PRN 03/01/20 03/01/20 History Loratadine 10 mg PO DAILY 03/01/20 03/01/20 History Allergies Allergy/AdvReac Type Severity Reaction Status Date / Time azithromycin Allergy Swelling Verified 03/01/20 12:10 [From Zithromax Z-Brayden] ondansetron HCl Allergy Vomiting Verified 03/01/20 12:10 [From Zofran (as hydrochloride)] onion Allergy Swelling Verified 03/01/20 12:10 Physical Exam Vitals: Vital Signs Temp Pulse Pulse Resp BP BP Pulse Ox 03/01/20 08:31 77 18 03/01/20 08:15 97.8 F 77 18 144/94 99 03/01/20 03:18 96 03/01/20 03:03 97.5 F L 80 16 129/86 96 03/01/20 03:00 80 16 03/01/20 02:27 73 19 126/89 96 03/01/20 01:08 75 19 126/83 98 02/29/20 23:55 79 19 136/92 98 02/29/20 23:39 78 16 141/101 97 02/29/20 21:52 98 F 87 18 164/99 99 Intake and Output 03/01/20 03/01/20 03/01/20 06:59 14:59 22:59 Other: Voiding Method Toilet Toilet # Voids 1 1 Weight 83.461 kg Results 02/29/20 22:39 02/29/20 22:39 Cardiac Enzymes 02/29/20 02/29/20 03/01/20 Range/Units 22:39 22:39 01:58 AST 42 H (14-36) U/L Troponin I <0.012 <0.012 (0.000-0.034) ng/mL 03/01/20 Range/Units 04:54 AST (14-36) U/L Troponin I <0.012 (0.000-0.034) ng/mL Coagulation 02/29/20 Range/Units 22:39 PT 10.2 (9.0-12.0) sec APTT 25.4 (22.0-30.0) sec CBC 02/29/20 Range/Units 22:39 WBC 7.7 (3.8-10.6) k/uL RBC 4.37 (3.80-5.40) m/uL Hgb 13.5 (11.4-16.0) gm/dL Hct 40.4 (34.0-46.0) % Plt Count 271 (150-450) k/uL Comprehensive Metabolic Panel 02/29/20 Range/Units 22:39 Sodium 139 (137-145) mmol/L Potassium 4.0 (3.5-5.1) mmol/L Chloride 102 (98-107) mmol/L Carbon Dioxide 27 (22-30) mmol/L BUN 8 (7-17) mg/dL Creatinine 0.75 (0.52-1.04) mg/dL Glucose 111 H (74-99) mg/dL Calcium 9.4 (8.4-10.2) mg/dL AST 42 H (14-36) U/L ALT 49 H (4-34) U/L Alkaline Phosphatase 111 (38-126) U/L Total Protein 7.7 (6.3-8.2) g/dL Albumin 4.3 (3.5-5.0) g/dL Current Medications Generic Name Dose Route Start Last Admin Trade Name Freq PRN Reason Stop Dose Admin Albuterol Sulfate 2.5 mg 03/01/20 06:00 Ventolin Nebulized INHALATION QID PRN sob Apixaban 5 mg 03/01/20 09:00 03/01/20 08:17 Eliquis PO 5 mg BID [facility] Administration Aspirin 81 mg 03/01/20 09:00 03/01/20 08:16 Aspirin PO 81 mg DAILY [facility] Administration Atorvastatin Calcium 40 mg 03/01/20 09:00 03/01/20 08:16 Lipitor PO 40 mg DAILY [facility] Administration Citalopram Hydrobromide 20 mg 03/01/20 09:00 03/01/20 08:16 Celexa PO 20 mg DAILY [facility] Administration Docusate Sodium 100 mg 03/01/20 05:56 Colace PO HS PRN Constipation Famotidine 40 mg 03/01/20 09:00 03/01/20 08:16 Pepcid PO 40 mg DAILY [facility] Administration Gabapentin 600 mg 03/01/20 09:00 03/01/20 08:16 Neurontin PO 600 mg TID [facility] Administration Ibuprofen 800 mg 03/01/20 08:00 03/01/20 08:16 Motrin PO 800 mg Q8HR [facility] Administration Insulin Aspart 0 unit 03/01/20 12:30 03/01/20 12:58 Novolog SQ Not Given ACHS [facility] Protocol Ketotifen Fumarate 1 drops 03/01/20 09:00 03/01/20 08:17 Zaditor BOTH EYES 1 drops DAILY [facility] Administration Lidocaine HCl 1 applic 03/01/20 09:00 03/01/20 08:18 Xylocaine Jelly 2% TOPICAL Not Given BID [facility] Loratadine 10 mg 03/01/20 09:00 03/01/20 08:17 Claritin PO 10 mg DAILY [facility] Administration Losartan Potassium 50 mg 03/01/20 09:00 03/01/20 08:16 Cozaar PO 50 mg DAILY [facility] Administration Metformin HCl 500 mg 03/01/20 09:00 03/01/20 12:26 Glucophage PO Not Given BID [facility] Nitroglycerin 0.4 mg 03/01/20 01:26 Nitrostat SUBLINGUAL Q5M PRN Chest Pain Non-Formulary Medication 900 mg 03/01/20 09:00 03/01/20 08:21 Oxcarbazepine [Oxtellar Xr] PO Not Given QAM [facility] Ondansetron HCl 4 mg 03/01/20 06:06 Zofran IVP Q6HR PRN Nausea And Vomiting Oxybutynin Chloride 15 mg 03/01/20 09:00 03/01/20 08:18 Ditropan Xl PO 15 mg DAILY [facility] Administration Pantoprazole Sodium 40 mg 03/01/20 09:00 03/01/20 08:17 Protonix PO 40 mg BID [facility] Administration Prochlorperazine Maleate 10 mg 03/01/20 09:00 Compazine PO TID PRN Nausea Verapamil HCl 120 mg 03/01/20 09:00 03/01/20 08:18 Isoptin Sr PO 120 mg QAM [facility] Administration Intake and Output 03/01/20 03/01/20 03/01/20 06:59 14:59 22:59 Other: Voiding Method Toilet Toilet # Voids 1 1 Weight 83.461 kg 02/29/20 22:39 02/29/20 22:39
[2020-03-01 19:49] LABS: Hemoglobin A1C 5.8 % (4.0-6.0)
[2020-03-02] MEDS ORDERED: ASPIRIN 325 MG TAB PO SCH (09:00)
--- NOTE | 2020-03-06 10:13 | P.DS ---
Providers Date of admission: 03/01/20 01:26 Expected date of discharge: 03/06/20 Attending physician: Lawrence Brown Consults: 03/01/20 01:26 Consult Physician Urgent Consulting Provider: Jude Gibbs Consult Reason/Comments: chest pain Do you want consulting provider notified?: Yes, Notify in am Primary care physician: [facility] Course: Noncardiac chest pain Patient Condition at Discharge: Good Plan - Discharge Summary New Discharge Prescriptions: No Action Docusate Sodium [Dulcolax Stool Softener] 100 mg PO HS PRN PRN Reason: Constipation Omeprazole [PriLOSEC] 20 mg PO BID Verapamil HCl [Verapamil ER] 120 mg PO QAM Prochlorperazine [Compazine] 10 mg PO TID PRN PRN Reason: Nausea OXcarbazepine [Oxtellar Xr] 900 mg PO QAM Azelastine HCl [Optivar 0.05% Ophth Soln] 1 drop BOTH EYES BID Gabapentin 600 mg PO TID metFORMIN HCL [metFORMIN HCL ER] 500 mg PO BID Famotidine [Pepcid] 40 mg PO DAILY HYDROcodone/APAP 10-325MG [[place] 10-325] 1 tab PO TID Lidocaine 2% Gel [Xylocaine Jelly 2%] 1 applic TOPICAL BID PRN PRN Reason: LOWER BACK PAIN Albuterol Nebulized [Ventolin Nebulized] 2.5 mg INHALATION RT-TID PRN PRN Reason: Shortness Of Breath Citalopram Hydrobromide [CeleXA] 20 mg PO DAILY Oxybutynin ER [Ditropan Xl] 15 mg PO DAILY Butalb/APAP/Caff 50-325-40Mg [Fioricet 50-325-40] 1 tab PO Q8H PRN PRN Reason: Migraine Headache Losartan [Cozaar] 50 mg PO DAILY Atorvastatin [Lipitor] 40 mg PO DAILY Apixaban [Eliquis] 5 mg PO BID Ibuprofen 800 mg PO Q8HR PRN PRN Reason: Pain Aspirin 81 mg PO DAILY Albuterol Sulfate [Ventolin HFA] 2 puff INHALATION RT-QID PRN PRN Reason: Shortness Of Breath Fluticasone Nasal [place] [Flonase Nasal [place]] 2 spray EA NOSTRIL DAILY Loratadine 10 mg PO DAILY Discharge Medication List Docusate Sodium [Dulcolax Stool Softener] 100 mg PO HS PRN 03/03/14 [History] Omeprazole [PriLOSEC] 20 mg PO BID 04/03/14 [History] Azelastine HCl [Optivar 0.05% Ophth Soln] 1 drop BOTH EYES BID 06/12/16 [History] OXcarbazepine [Oxtellar Xr] 900 mg PO QAM 06/12/16 [History] Prochlorperazine [Compazine] 10 mg PO TID PRN 06/12/16 [History] Verapamil HCl [Verapamil ER] 120 mg PO QAM 06/12/16 [History] Gabapentin 600 mg PO TID 06/07/18 [History] metFORMIN HCL [metFORMIN HCL ER] 500 mg PO BID 06/07/18 [History] Famotidine [Pepcid] 40 mg PO DAILY 09/19/18 [History] HYDROcodone/APAP 10-325MG [[place] 10-325] 1 tab PO TID 09/19/18 [History] Lidocaine 2% Gel [Xylocaine Jelly 2%] 1 applic TOPICAL BID PRN 02/20/19 [History] Albuterol Nebulized [Ventolin Nebulized] 2.5 mg INHALATION RT-TID PRN 04/07/19 [History] Butalb/APAP/Caff 50-325-40Mg [Fioricet 50-325-40] 1 tab PO Q8H PRN 04/07/19 [History] Citalopram Hydrobromide [CeleXA] 20 mg PO DAILY 04/07/19 [History] Oxybutynin ER [Ditropan Xl] 15 mg PO DAILY 04/07/19 [History] Losartan [Cozaar] 50 mg PO DAILY 04/21/19 [History] Apixaban [Eliquis] 5 mg PO BID 01/06/20 [History] Atorvastatin [Lipitor] 40 mg PO DAILY 01/06/20 [History] Albuterol Sulfate [Ventolin HFA] 2 puff INHALATION RT-QID PRN 03/01/20 [History] Aspirin 81 mg PO DAILY 03/01/20 [History] Fluticasone Nasal [place] [Flonase Nasal [place]] 2 spray EA NOSTRIL DAILY 03/01/20 [History] Ibuprofen 800 mg PO Q8HR PRN 03/01/20 [History] Loratadine 10 mg PO DAILY 03/01/20 [History] Follow up Appointment(s)/Referral(s): Connor King Jr, DO [Primary Care Provider] - 1-2 days Marisabel Villalta MD [STAFF PHYSICIAN] - 1 Week Patient Instructions/Handouts: Chest Pain (DC) Discharge Disposition: HOME SELF-CARE
== END 2020-03-01 16:30 | disposition home or self-care (01) ==
LOC: EC 21:47 → 3NCARDOBS 03-01 01:26
PROVIDERS: ADMIT Family Medicine; ATTEND Family Medicine
DX: R07.89 Other chest pain (principal); R10.13 Epigastric pain; J45.909 Unspecified asthma, uncomplicated; E11.9 Type 2 diabetes mellitus without complications; K21.9 Gastro-esophageal reflux disease without esophagitis; E78.5 Hyperlipidemia, unspecified; I10 Essential (primary) hypertension; M19.90 Unspecified osteoarthritis, unspecified site; G47.30 Sleep apnea, unspecified; G89.4 Chronic pain syndrome; M54.9 Dorsalgia, unspecified; M47.812 Spondylosis without myelopathy or radiculopathy, cervical region; G40.409 Other generalized epilepsy and epileptic syndromes, not intractable, without status epilepticus; N32.81 Overactive bladder; N39.0 Urinary tract infection, site not specified; B37.3 Candidiasis of vulva and vagina; F40.240 Claustrophobia; F41.9 Anxiety disorder, unspecified; E66.9 Obesity, unspecified; Z86.73 Personal history of transient ischemic attack (TIA), and cerebral infarction without residual deficits; Z86.718 Personal history of other venous thrombosis and embolism; Z79.01 Long term (current) use of anticoagulants; Z79.899 Other long term (current) drug therapy; Z79.84 Long term (current) use of oral hypoglycemic drugs; Z79.891 Long term (current) use of opiate analgesic; Z88.1 Allergy status to other antibiotic agents; Z88.8 Allergy status to other drugs, medicaments and biological substances; Z91.018 Allergy to other foods; Z99.89 Dependence on other enabling machines and devices; Z87.81 Personal history of (healed) traumatic fracture; Z87.19 Personal history of other diseases of the digestive system; Z87.442 Personal history of urinary calculi; Z86.19 Personal history of other infectious and parasitic diseases; Z86.14 Personal history of Methicillin resistant Staphylococcus aureus infection; Z90.49 Acquired absence of other specified parts of digestive tract; Z98.890 Other specified postprocedural states; Z90.710 Acquired absence of both cervix and uterus; Z98.51 Tubal ligation status; Z87.39 Personal history of other diseases of the musculoskeletal system and connective tissue; Z87.898 Personal history of other specified conditions; Z87.891 Personal history of nicotine dependence; Z86.711 Personal history of pulmonary embolism; Z68.34 Body mass index [BMI] 34.0-34.9, adult; Z80.49 Family history of malignant neoplasm of other genital organs; Z80.1 Family history of malignant neoplasm of trachea, bronchus and lung
CPT/HCPCS: 96374; 99285; 36415; 93005; 85379; 83880; 80053; 84443; 83735; 84484 ×2; 85025; 85610; 85730; 83036; 71046; G0378; J2270

== ENCOUNTER → 2020-03-16 | Outpatient (CLI) | payer OTHER ==
[2020-03-16 07:54] LABS: African American GFR (CKD) >90 (>60 ml/min/1.73 sqM); Blood Urea Nitrogen 8 mg/dL (7-17); Non-African American GFR(CKD) >90 (>60 ml/min/1.73 sqM)
--- NOTE | 2020-03-16 08:32 | CT ---
EXAMINATION TYPE: CT chest w con DATE OF EXAM: 03/16/2020 COMPARISON: 08/14/2018 HISTORY: Lung Nodule CT DLP: 438.2 mGycm Automated exposure control for dose reduction was used. CONTRAST: CT scan of the chest is performed with IV Contrast, patient injected with 100 mL of Isovue 300. FINDINGS: LUNGS: The lungs are grossly clear, there is no concerning parenchymal mass or nodule identified. T here is no pleural effusion or pneumothorax seen. The tracheobronchial tree is patent. Subsegmental areas of consolidation most typical of atelectasis. Stable 2 mm nodule posterior segment right upper lobe. Stable 2 mm nodule right upper lobe. Stable 3 mm nodule right upper lobe. Stable 3 mm nodule right middle lobe. Stable 7 mm nodule left lower lobe. MEDIASTINUM: There are no greater than 1 cm hilar or mediastinal lymph nodes. No pericardial effusi on is seen. OTHER: Postcholecystectomy changes noted. Mild reduced attenuation liver suggestive of hepatic steat osis hypertrophic and degenerative changes spine. IMPRESSION: 1. Stable multiple bilateral pulmonary nodules unchanged from the prior exam. 2. No evidence of consolidative pneumonia. Subsegmental changes involving the lung bases are most typ ical of atelectasis
== END | disposition home or self-care (01) ==
LOC: RADCTMAIN 07:11
PROVIDERS: ATTEND Internal Medicine Critical Care Medicine
DX: R91.8 Other nonspecific abnormal finding of lung field (principal); J98.11 Atelectasis; Z88.1 Allergy status to other antibiotic agents; Z88.8 Allergy status to other drugs, medicaments and biological substances
CPT/HCPCS: 82565; 84520; 71260; 36415; Q9967

== ENCOUNTER → 2020-04-22 | Outpatient (CLI) | payer OTHER ==
--- NOTE | 2020-04-22 17:04 | US ---
EXAMINATION TYPE: US kidneys/renal and bladder DATE OF EXAM: 04/22/2020 COMPARISON: CT degenerative 12/01/2020 CLINICAL HISTORY: N20.0 Calculus of kidney. Patient c/o bilateral flank pain EXAM MEASUREMENTS: Right Kidney: 10.6 x 6.1 x 3.5 cm Left Kidney: 11.2 x 5.6 x 5.6 cm Post Void Residual Volume: 8.0 mL Right Kidney: No hydronephrosis or masses seen Left Kidney: No hydronephrosis or masses seen Bladder: wnl Bilateral Jets seen: Yes Normal Post Void Residual: Yes There is no evidence for hydronephrosis at this point in time. No nephrolithiasis is seen. No chan s are identified. The urinary bladder is satisfactorily distended. Bilateral ureteral jets are seen . Minimal residual urine after voiding. When scanning right kidney adjacent liver is heterogeneously hyperechoic consistent with diffuse fatty infiltration on recent CT. IMPRESSION: No hydronephrosis noted bilaterally. No new or acute findings evident.
== END | disposition home or self-care (01) ==
LOC: RADUSWWP 15:24
PROVIDERS: ATTEND Family Medicine
DX: N20.0 Calculus of kidney (principal); Z88.1 Allergy status to other antibiotic agents; Z88.8 Allergy status to other drugs, medicaments and biological substances
CPT/HCPCS: 76770

== ENCOUNTER 2020-04-23 15:39 | Emergency (ER) | payer OTHER ==
[2020-04-23] MEDS ORDERED: SODIUM CHLORIDE 0.9% 1,000 ML IV STA (16:02)
--- NOTE | 2020-04-23 16:38 | XR ---
EXAMINATION TYPE: XR chest 2V DATE OF EXAM: 04/23/2020 CLINICAL HISTORY: syncope. TECHNIQUE: Frontal and lateral view of the chest. COMPARISON: 02/29/2020 chest radiograph FINDINGS: The cardiomediastinal silhouette is within normal limits for size. Pulmonary vasculature i s normal. There is no focal air space opacity, pleural effusion, or pneumothorax seen. The osseous st ructures are intact. IMPRESSION: No acute cardiopulmonary process.
--- NOTE | 2020-04-23 16:46 | ED ---
General Adult HPI - General Chief complaint: Syncope Stated complaint: syncope Time Seen by Provider: 04/23/20 15:46 Source: patient Mode of arrival: ambulatory Limitations: no limitations - History of Present Illness Initial comments: Patient is a 50-year-old female, with multiple comorbidities including asthma, diabetes, hypertension, seizure disorder, TIA, presenting to the emergency department after she had syncopal episode today. Patient's is here with her now and is helping with history. Patient states that over the past few months she has been having bouts of lightheadedness when she sits up from a laying position or when she standing for long time. Patient states today they were at the phone store when she had a syncopal event. She was out for a few seconds. Patient's labs and states that he does check her blood pressure when she is having these events at home and states it has been really low at times, 70s over 50s when she is having the symptoms. Patient states after a few minutes the lightheadedness seems to go away and her blood pressure goes back to normal. She denies any chest tightness, shortness of breath at this time. She does feel lightheaded, fatigued, some mild lower abdominal discomfort, no specific air pain. She denies any fever, chills, headache, blurry vision, nausea or vomiting. She has spoke to her PCP about this and they have been trying to adjust her medications to see if that has helped but has not yet. Patient states she does take a lot of different medications. She has no further complaints at this time. Upon arrival to the ER, patient's vital signs are stable. - Related Data Home Medications Medication Instructions Recorded Confirmed Docusate Sodium [Dulcolax Stool 100 mg PO HS PRN 03/03/14 03/01/20 Softener] Omeprazole [PriLOSEC] 20 mg PO BID 04/03/14 03/01/20 Azelastine HCl [Optivar 0.05% 1 drop BOTH EYES BID 06/12/16 03/01/20 Ophth Soln] OXcarbazepine [Oxtellar Xr] 900 mg PO QAM 06/12/16 03/01/20 Prochlorperazine [Compazine] 10 mg PO TID PRN 06/12/16 03/01/20 Verapamil HCl [Verapamil ER] 120 mg PO QAM 06/12/16 03/01/20 Gabapentin 600 mg PO TID 06/07/18 03/01/20 metFORMIN HCL [metFORMIN HCL ER] 500 mg PO BID 06/07/18 03/01/20 Famotidine [Pepcid] 40 mg PO DAILY 09/19/18 03/01/20 HYDROcodone/APAP 10-325MG [[place] 1 tab PO TID 09/19/18 03/01/20 10-325] Lidocaine 2% Gel [Xylocaine Jelly 1 applic TOPICAL BID PRN 02/20/19 03/01/20 2%] Albuterol Nebulized [Ventolin 2.5 mg INHALATION RT-TID PRN 04/07/19 03/01/20 Nebulized] Butalb/APAP/Caff 50-325-40Mg 1 tab PO Q8H PRN 04/07/19 03/01/20 [Fioricet 50-325-40] Citalopram Hydrobromide [CeleXA] 20 mg PO DAILY 04/07/19 03/01/20 Oxybutynin ER [Ditropan Xl] 15 mg PO DAILY 04/07/19 03/01/20 Losartan [Cozaar] 50 mg PO DAILY 04/21/19 03/01/20 Apixaban [Eliquis] 5 mg PO BID 01/06/20 03/01/20 Atorvastatin [Lipitor] 40 mg PO DAILY 01/06/20 03/01/20 Albuterol Sulfate [Ventolin HFA] 2 puff INHALATION RT-QID PRN 03/01/20 03/01/20 Aspirin 81 mg PO DAILY 03/01/20 03/01/20 Fluticasone Nasal [place] [Flonase 2 spray EA NOSTRIL DAILY 03/01/20 03/01/20 Nasal [place]] Ibuprofen 800 mg PO Q8HR PRN 03/01/20 03/01/20 Loratadine 10 mg PO DAILY 03/01/20 03/01/20 Allergies Allergy/AdvReac Type Severity Reaction Status Date / Time azithromycin Allergy Swelling Verified 04/23/20 15:44 [From Zithromax Z-Brayden] ondansetron HCl Allergy Vomiting Verified 04/23/20 15:44 [From Zofran (as hydrochloride)] onion Allergy Swelling Verified 04/23/20 15:44 Review of Systems ROS Statement: Those systems with pertinent positive or pertinent negative responses have been documented in the HPI. ROS Other: All systems not noted in ROS Statement are negative. 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 , WEARS BACK BRACE, shingles, on Rx for UTI, starting topical for vaginal yeast infection, stroke october 2019 History of Any Multi-Drug Resistant Organisms: MRSA Date of last positivie culture/infection: 07/12/19 MDRO Source:: belly button Past Surgical History: Appendectomy, Bowel Resection, Cholecystectomy, Heart Catheterization, Hysterectomy, Orthopedic Surgery, Tubal Ligation, Uterine Ablation Additional Past Surgical History / Comment(s): Bowel resection for colitis/diverticulitis, EGDs, colonoscopies, loop recorder now removed, multiple pain clinic procedures, bilateral rotator cuff surgery, R hand ganglion cyst removed 3 times, tilt table test, MRI with anesthesia d/t claustrophobia., BREE BICEP SURGERY Past Anesthesia/Blood Transfusion Reactions: Motion Sickness Type of Cardiac Device: Loop Device Placement Date:: MAR 2009 AND 2013 Past Psychological History: Anxiety Smoking Status: Former smoker Past Alcohol Use History: None Reported Past Drug Use History: None Reported - Past Family History Mother Family Medical History: Cancer Additional Family Medical History / Comment(s): Uterine cancer. Father Family Medical History: Cancer Additional Family Medical History / Comment(s): L lung cancer General Exam - General Exam Comments Initial Comments: GENERAL: Patient is well-developed and well-nourished. Patient is nontoxic and in no acute distress. HEAD: Atraumatic, normocephalic. EYES: Pupils equal round and reactive to light, extraocular movements intact, sclera anicteric, conjunctiva are normal. Eyelids were unremarkable. ENT: TMs normal, nares patent, oropharynx clear without exudates. Moist mucous membranes. NECK: Normal range of motion, supple without lymphadenopathy or JVD. LUNGS: Unlabored respirations. Breath sounds clear to auscultation bilaterally and equal. No wheezes rales or rhonchi. HEART: Regular rate and rhythm without murmurs, rubs or gallops. ABDOMEN: Soft, nontender, normoactive bowel sounds. No guarding, no rebound. No masses appreciated. : Deferred MUSCULOSKELETAL: Normal extremities with adequate strength and normal range of motion, no pitting or edema. No clubbing or cyanosis. NEUROLOGICAL: Patient is alert and oriented x 3. Motor and sensory are also intact. Cranial nerves II through XII grossly intact. Symmetrical smile. Normal speech, normal gait. PSYCH: Normal mood, normal affect. SKIN: Warm, Dry, normal turgor, no rashes or lesions noted. Limitations: no limitations Course Vital Signs 04/23/20 04/23/20 15:41 17:30 Temperature 98.3 F Pulse Rate 98 79 Respiratory 20 19 Rate Blood Pressure 143/93 123/83 O2 Sat by Pulse 99 99 Oximetry EKG Findings - EKG Comments: EKG Findings:: Normal sinus rhythm, normal ECG, no acute findings. Ventricular rate 79, VA interval 142, QT 388. Medical Decision Making - Medical Decision Making Patient is 50-year-old female here after having a syncopal event at a store earlier today. She has been having episodes of lightheadedness as well as low blood pressure over the past few months. She does have many significant comorbidities, many medications. Her vital signs are stable upon arrival, her exam shows no acute findings. Her EKG is normal. Chest x-ray is normal, lab work shows no acute findings. Troponin is normal, urine shows no evidence of infection. To give patient some fluids while in the ER, her blood pressure has remained a normal level. I discussed these findings with the patient. Her symptoms are most likely related to hypotension related lightheadedness with changes in position. I did recommend following up with her PCP, she states she already has an appointment next week. At this time she is stable for discharge. I recommended taking precaution when changing positions. Make sure to increase fluid intake, eat a regular diet. Patient is agreeable with this plan of care. She is stable for discharge. Return parameters were discussed with the patient she verbalized understanding. Case discussed with Dr. Goncalves. - Lab Data Result diagrams: 04/23/20 16:52 04/23/20 16:52 Lab Results 04/23/20 04/23/20 04/23/20 Range/Units 16:52 16:52 16:52 WBC 7.3 (3.8-10.6) k/uL RBC 4.48 (3.80-5.40) m/uL Hgb 14.1 (11.4-16.0) gm/dL Hct 42.6 (34.0-46.0) % MCV 95.1 (80.0-100.0) fL MCH 31.5 (25.0-35.0) pg MCHC 33.1 (31.0-37.0) g/dL RDW 13.4 (11.5-15.5) % Plt Count 281 (150-450) k/uL Neutrophils % 62 % Lymphocytes % 28 % Monocytes % 5 % Eosinophils % 3 % Basophils % 1 % Neutrophils # 4.5 (1.3-7.7) k/uL Lymphocytes # 2.0 (1.0-4.8) k/uL Monocytes # 0.3 (0-1.0) k/uL Eosinophils # 0.2 (0-0.7) k/uL Basophils # 0.1 (0-0.2) k/uL PT 10.4 (9.0-12.0) sec INR 1.0 (<1.2) APTT 25.6 (22.0-30.0) sec Sodium 138 (137-145) mmol/L Potassium 4.0 (3.5-5.1) mmol/L Chloride 102 (98-107) mmol/L Carbon Dioxide 31 H (22-30) mmol/L Anion Gap 5 mmol/L BUN 11 (7-17) mg/dL Creatinine 0.67 (0.52-1.04) mg/dL Est GFR (CKD-EPI)AfAm >90 (>60 ml/min/1.73 sqM) Est GFR (CKD-EPI)NonAf >90 (>60 ml/min/1.73 sqM) Glucose 108 H (74-99) mg/dL Calcium 9.6 (8.4-10.2) mg/dL Magnesium 1.7 (1.6-2.3) mg/dL Total Bilirubin 0.3 (0.2-1.3) mg/dL AST 24 (14-36) U/L ALT 28 (4-34) U/L Alkaline Phosphatase 93 (38-126) U/L Troponin I (0.000-0.034) ng/mL Total Protein 8.2 (6.3-8.2) g/dL Albumin 4.4 (3.5-5.0) g/dL Urine Color Urine Appearance (Clear) Urine pH (5.0-8.0) Ur Specific [place] (1.001-1.035) Urine Protein (Negative) Urine Glucose (UA) (Negative) Urine Ketones (Negative) Urine Blood (Negative) Urine Nitrite (Negative) Urine Bilirubin (Negative) Urine Urobilinogen (<2.0) mg/dL Ur Leukocyte Esterase (Negative) 04/23/20 04/23/20 Range/Units 16:52 16:52 WBC (3.8-10.6) k/uL RBC (3.80-5.40) m/uL Hgb (11.4-16.0) gm/dL Hct (34.0-46.0) % MCV (80.0-100.0) fL MCH (25.0-35.0) pg MCHC (31.0-37.0) g/dL RDW (11.5-15.5) % Plt Count (150-450) k/uL Neutrophils % % Lymphocytes % % Monocytes % % Eosinophils % % Basophils % % Neutrophils # (1.3-7.7) k/uL Lymphocytes # (1.0-4.8) k/uL Monocytes # (0-1.0) k/uL Eosinophils # (0-0.7) k/uL Basophils # (0-0.2) k/uL PT (9.0-12.0) sec INR (<1.2) APTT (22.0-30.0) sec Sodium (137-145) mmol/L Potassium (3.5-5.1) mmol/L Chloride (98-107) mmol/L Carbon Dioxide (22-30) mmol/L Anion Gap mmol/L BUN (7-17) mg/dL Creatinine (0.52-1.04) mg/dL Est GFR (CKD-EPI)AfAm (>60 ml/min/1.73 sqM) Est GFR (CKD-EPI)NonAf (>60 ml/min/1.73 sqM) Glucose (74-99) mg/dL Calcium (8.4-10.2) mg/dL Magnesium (1.6-2.3) mg/dL Total Bilirubin (0.2-1.3) mg/dL AST (14-36) U/L ALT (4-34) U/L Alkaline Phosphatase (38-126) U/L Troponin I <0.012 (0.000-0.034) ng/mL Total Protein (6.3-8.2) g/dL Albumin (3.5-5.0) g/dL Urine Color Yellow Urine Appearance Clear (Clear) Urine pH 6.0 (5.0-8.0) Ur Specific [place] 1.023 (1.001-1.035) Urine Protein Negative (Negative) Urine Glucose (UA) Negative (Negative) Urine Ketones Negative (Negative) Urine Blood Negative (Negative) Urine Nitrite Negative (Negative) Urine Bilirubin Negative (Negative) Urine Urobilinogen <2.0 (<2.0) mg/dL Ur Leukocyte Esterase Negative (Negative) Disposition Clinical Impression: Syncope and collapse Disposition: HOME SELF-CARE Condition: Stable Instructions (If sedation given, give patient instructions): Syncope (ED) Additional Instructions: Please return to the Emergency Department if symptoms worsen or any other concerns. Be cautious with position changes as discussed. Follow-up with Dr. Zafar's office as discussed. Is patient prescribed a controlled substance at d/c from ED?: No Referrals: Connor King Jr, [Primary Care Provider] - 1-2 days
[2020-04-23 17:08] LABS: Basophils # (A) 0.1 k/uL (0-0.2); Basophils % (A) 1 %; Eosinophils # (A) 0.2 k/uL (0-0.7); Eosinophils % (A) 3 %; HCT 42.6 % (34.0-46.0); HGB 14.1 gm/dL (11.4-16.0); Lymphocytes % (A) 28 %; MCH 31.5 pg (25.0-35.0); MCHC 33.1 g/dL (31.0-37.0); MCV 95.1 fL (80.0-100.0); Monocytes # (A) 0.3 k/uL (0-1.0); Monocytes % (A) 5 %; Neutrophils # (A) 4.5 k/uL (1.3-7.7); Neutrophils % (A) 62 %; Platelet Count 281 k/uL (150-450); RBC 4.48 m/uL (3.80-5.40); RDW 13.4 % (11.5-15.5); WBC 7.3 k/uL (3.8-10.6)
[2020-04-23 17:09] LABS: Appearance,Urine Clear (Clear); Bilirubin,Urine Negative (Negative); Blood,Urine Negative (Negative); Color,Urine Yellow; Glucose,Urine (UA) Negative (Negative); Ketones,Urine Negative (Negative); Leukocyte Esterase,Urine Negative (Negative); Nitrite,Urine Negative (Negative); Protein,Urine Negative (Negative); Specific Gravity,Urine 1.023 (1.001-1.035); Urobilinogen,Urine <2.0 mg/dL (<2.0)
[2020-04-23 17:17] LABS: ALT 28 U/L (4-34); AST 24 U/L (14-36); African American GFR (CKD) >90 (>60 ml/min/1.73 sqM); Albumin 4.4 g/dL (3.5-5.0); Alkaline Phosphatase 93 U/L (38-126); Anion Gap 5 mmol/L; Blood Urea Nitrogen 11 mg/dL (7-17); Calcium 9.6 mg/dL (8.4-10.2); Carbon Dioxide 31 mmol/L (22-30); Chloride 102 mmol/L (98-107); Glucose 108 mg/dL (74-99); Magnesium 1.7 mg/dL (1.6-2.3); Non-African American GFR(CKD) >90 (>60 ml/min/1.73 sqM); Partial Thromboplastin Time 25.6 sec (22.0-30.0); Prothrombin Time 10.4 sec (9.0-12.0); Sodium 138 mmol/L (137-145); Total Bilirubin 0.3 mg/dL (0.2-1.3); Total Protein 8.2 g/dL (6.3-8.2)
[2020-04-23 18:38] VITALS: BP 123/78; PULSE 75; RESP 20
[2020-04-23 18:40] VITALS: TEMP 98.2
== END 2020-04-23 18:40 | disposition home or self-care (01) ==
LOC: EC 15:39
DX: R55 Syncope and collapse (principal); R42 Dizziness and giddiness; I10 Essential (primary) hypertension; E11.9 Type 2 diabetes mellitus without complications; K21.9 Gastro-esophageal reflux disease without esophagitis; E78.5 Hyperlipidemia, unspecified; J45.909 Unspecified asthma, uncomplicated; M19.90 Unspecified osteoarthritis, unspecified site; G47.30 Sleep apnea, unspecified; G89.29 Other chronic pain; M54.9 Dorsalgia, unspecified; G40.409 Other generalized epilepsy and epileptic syndromes, not intractable, without status epilepticus; F41.9 Anxiety disorder, unspecified; Z79.899 Other long term (current) drug therapy; Z79.84 Long term (current) use of oral hypoglycemic drugs; Z79.891 Long term (current) use of opiate analgesic; Z79.01 Long term (current) use of anticoagulants; Z79.82 Long term (current) use of aspirin; Z79.51 Long term (current) use of inhaled steroids; Z99.89 Dependence on other enabling machines and devices; Z86.73 Personal history of transient ischemic attack (TIA), and cerebral infarction without residual deficits; Z88.1 Allergy status to other antibiotic agents; Z91.018 Allergy to other foods; Z88.8 Allergy status to other drugs, medicaments and biological substances; Z87.891 Personal history of nicotine dependence; Z86.718 Personal history of other venous thrombosis and embolism
CPT/HCPCS: 36415; 71046; 80053; 81003; 83735; 84484; 85025; 85610; 85730; 93005; 99284

== ENCOUNTER → 2020-04-29 | Outpatient (CLI) | payer OTHER ==
--- NOTE | 2020-05-02 20:50 | MR ---
EXAMINATION TYPE: MR knee LT wo con DATE OF EXAM: 04/29/2020 COMPARISON: Radiograph 03/31/2020 HISTORY: 50-year-old female Left knee pain/injury 2 mos ago TECHNIQUE: Multiplanar, multisequence imaging of the left knee is performed without IV contrast. FINDINGS: ACL, PCL, MCL, and LCL complex are intact. However, there is soft tissue edema along the posterolateral corner of the proximal tibia. Lateral meniscus shows an oblique tear involving both the anterior and posterior horn. Tear becomes a horizontal cleavage tear within the body with a parameniscal cyst along the peripheral aspect of the meniscal body measuring 1.9 cm AP by 7 x 6 mm. Mild diffuse thinning of lateral compartment articula r cartilage volume. There are oblique tears involving both posterior horn and body of the medial meniscus. Mild diffuse t hinning of medial compartment articular cartilage volume. The patellofemoral compartment is intact. Extensor mechanism is intact. Nonspecific anterior infrapatellar and prepatellar soft tissue swelling . There is a small to moderate knee joint effusion. No Garcia's cyst. Normal popliteal artery anatomy. Mild loss of overall muscle bulk. No suspicious bone marrow replacem ent. IMPRESSION: 1. Large tear extending throughout the lateral meniscus. These are oblique tears of both posterior an d anterior horn and a horizontal cleavage tear of the meniscal body with a peripherally located 1.9 x 0.7 x 0.6 cm parameniscal cyst. 2. Additional oblique tears of the posterior horn and body of the medial meniscus. 3. Prominent soft tissue edema along the posterolateral lip of the tibial plateau. Correlate with phy sical exam findings to exclude posterolateral corner injury. The LCL complex itself appears intact. 4. [id number] knee joint effusion.
== END | disposition home or self-care (01) ==
LOC: RADMRIMAIN 13:13
PROVIDERS: ATTEND Orthopaedic Surgery
DX: S83.282A Other tear of lateral meniscus, current injury, left knee, initial encounter (principal); M23.007 Cystic meniscus, unspecified meniscus, left knee; M79.89 Other specified soft tissue disorders; M25.469 Effusion, unspecified knee

== ENCOUNTER → 2020-06-02 | Outpatient (CLI) | payer OTHER ==
[2020-06-02 16:53] LABS: Basophils # (A) 0.1 k/uL (0-0.2); Basophils % (A) 1 %; Eosinophils # (A) 0.2 k/uL (0-0.7); Eosinophils % (A) 3 %; HCT 40.5 % (34.0-46.0); HGB 13.9 gm/dL (11.4-16.0); Lymphocytes # (A) 1.9 k/uL (1.0-4.8); Lymphocytes % (A) 26 %; MCH 31.9 pg (25.0-35.0); MCHC 34.3 g/dL (31.0-37.0); MCV 92.8 fL (80.0-100.0); Monocytes # (A) 0.4 k/uL (0-1.0); Monocytes % (A) 5 %; Neutrophils # (A) 4.6 k/uL (1.3-7.7); Neutrophils % (A) 64 %; Platelet Count 276 k/uL (150-450); RBC 4.36 m/uL (3.80-5.40); RDW 13.8 % (11.5-15.5); WBC 7.2 k/uL (3.8-10.6)
[2020-06-03 04:38] LABS: Anion Gap 10.7 mmol/L (4.00-12.00); Carbon Dioxide 25.3 mmol/L (21.6-31.8); Potassium 4.3 mmol/L (3.5-5.5)
== END | disposition home or self-care (01) ==
LOC: LABWHC1 15:16
PROVIDERS: ATTEND Nurse Practitioner Family
DX: Z01.818 Encounter for other preprocedural examination (principal)
CPT/HCPCS: 36415; 80051; 85025

== ENCOUNTER → 2020-06-11 | Day surgery (SDC) | payer OTHER ==
[2020-06-08 15:47] VITALS: BMI 35.5
--- NOTE | 2020-06-10 15:57 | HP ---
HISTORY AND PHYSICAL CHIEF COMPLAINT: Left knee pain. HISTORY OF PRESENT ILLNESS: Patient is a 50-year-old female who presents with persistent left knee pain after initial injury January 15, 2020. She was hit by dog that ran into her left knee. She has had pain, swelling, and giving way ever since. She has tried medications in addition to bracing and injection with only partial temporary relief. PAST MEDICAL HISTORY: Significant for type 2 diabetes, asthma, gastroesophageal reflux disease, seizure disorder, DVT, arthritis, migraines. PAST SURGICAL HISTORY: Significant for bilateral shoulder surgery and colostomy. FAMILY HISTORY: Significant for cancer, gout, diabetes, hypertension. SOCIAL HISTORY: Significant for previous tobacco use. CURRENT MEDICATIONS: Albuterol, aspirin, atorvastatin, famotidine, gabapentin, [place], losartan, metformin, omeprazole. She has allergies to ZOFRAN and Z-ANNMARIE. REVIEW OF SYSTEMS: 16-point review of systems otherwise reviewed and is noncontributory. PHYSICAL EXAMINATION: On examination, she is approximately 5 foot 1, 189 pounds of endomorphic habitus. HEENT: Nonfocal. NECK: Supple. She has painless passive motion of the left hip. Straight leg raise is negative. Active motion left knee -12 to 100 degrees of flexion. She has a moderate effusion. She is tender about the medial and lateral joint line. Active motion left knee -12 to 100 degrees of flexion. Collaterals are stable, Librado's in 1+ with a soft endpoint. Melani's elicits lateral pain. Her distal neurovascular appears intact in the left lower extremity. MRI report left knee shows evidence of medial and lateral meniscal tears. IMPRESSION: 1. Internal derangement left knee with symptomatic medial and lateral meniscal tears. 2. Hypertension. 3. Non-insulin dependent diabetes. 4. History of DVT. RECOMMENDATIONS: I talked to the patient at length regarding her condition and treatment options. At this point, she is having persistent pain and mechanical symptoms that limit her despite conservative measures after this recent injury. After thorough discussion, she opts to proceed with surgery. We will plan to proceed with arthroscopic evaluation with probable partial medial and lateral meniscectomies. Risks and benefits were discussed at length in layman's terms. We will likely perform this as an outpatient procedure. MMODL / IJN: [id number] /
[~2020-06-11] MED LIST changes: +DEXAMETHASONE SOD PHOSPHATE 4 MG/ML 1 ML VIAL IV ONE; +EPINEPHrine (PF) 1 ML in SODIUM CHLORIDE 0.9% IRRIGATIO 3,000 ML IRRIGATION ONE; +HYDROcodone/APAP 10-325MG 1 EACH TAB ONE; +HYDROcodone/APAP 10-325MG 1 EACH TAB PO ONE; +HYDROmorphone 0.5 MG/0.5 ML SYRINGE IVP ONE; +HYDROmorphone 0.5 MG/0.5 ML SYRINGE IVP PRN; +KETOROLAC 15 MG/ML 1 ML VIAL IVP ONE; +LIDOCAINE 1% (10MG/ML) FOR IV START INTRADERMA ONE; +LIDOCAINE 1% INJ 10MG/ML (20 ML MDV) ONE; +MIDAZOLAM 2 MG/2 ML VIAL IV PRN; +MIDAZOLAM 2 MG/2 ML VIAL ONE; +ONDANSETRON 4 MG/2 ML VIAL IVP ONE; +PROPOFOL 10 MG/ML 20 ML VIAL IV ONE; +SCOPOLAMINE 1.5MG/72HR PATCH TRANSDERM ONE; +SUCCINYLCHOLINE CHLORIDE 100 MG/5 ML SYR IV ONE; +fentaNYL (PF) 50 MCG/ML 2 ML AMP ONE
[2020-06-11 10:50] VITALS: TEMP 98.2
[2020-06-11 10:50] LABS: Glucose,Whole Blood 92 mg/dL (75-99)
--- NOTE | 2020-06-11 11:49 | P.OP ---
Date of Procedure: 06/11/20 Preoperative Diagnosis: Left knee internal derangement Postoperative Diagnosis: Left knee posterior medial meniscal tear/posterior lateral meniscal tear/grade 3 chondral injury distal central medial femoral condyle Procedure(s) Performed: Left knee arthroscopic partial medial meniscectomy/partial lateral meniscectomy/medial femoral chondrectomy/microfracture medial femoral condyle Anesthesia: VIANNEY Surgeon: Osvaldo Nye Estimated Blood Loss (ml): 10 Pathology: none sent Condition: stable Disposition: PACU Indications for Procedure: The patient is a 50-year-old female who presents with progressive left knee pain and mechanical symptoms after previous twisting injury despite conservative measures. A discussion of the risks and benefits of operative intervention versus continued conservative measures was made with patient. She opted to proceed with surgery. Operative risks to include infection, neurovascular injury, development of blood clots, possible incomplete resolution of symptoms, possible worsening symptoms and need for subsequent procedures was discussed. Informed consent was obtained. Operative Findings: As below Description of Procedure: The patient was brought to the operating room, and after induction of general anesthesia examined the left knee. Collaterals were stable, Librado was negative, and posterior drawer was negative. The left lower extremity was prepped and draped in a normal fashion. A superior lateral portal was made through a 3 mm skin incision superior and lateral to the patella. This was used for outflow. A lateral portal was made through a 5 mm vertical skin incision lateral to the patella tendon above the joint line. Diagnostic arthroscopy was performed. On inspection of the medial compartment, a horizontal tear involving the posterior horn medial meniscus in the white-white junction was noted. This was debrided back to stable base with straight baskets and a motorized shaver. A grade 3 chondral injury involving the distal central portion medial femoral condyle measuring 5 x 6 mm was noted. There was a loose chondral fragment that was debrided back to stable base with a motorized shaver. Microfracture performed utilizing a power pick breaching the subchondral surface down to the bone marrow elements. On inspection of the notch, the anterior cruciate ligament appeared to be intact. On inspection of the lateral compartment, she had a discoid meniscus variant with maceration of the central portion. This was debrided back to stable base with straight baskets and a motorized shaver.. On inspection of the patellofemoral articulation, minimal degenerative changes were noted. The gutters were clear debris. The knee was then thoroughly irrigated. The portals were closed with Steri-Strips. A sterile dressing was applied in addition to a compression stocking. The patient was awoken from general anesthesia and transferred to recovery room in good condition. Blood loss was estimated at 10 mL. No complications were incurred.
[2020-06-11 13:39] VITALS: BP 140/86; PULSE 98; RESP 16
== END | disposition home or self-care (01) ==
LOC: OR 10:11
PROVIDERS: ATTEND Orthopaedic Surgery
DX: S83.242A Other tear of medial meniscus, current injury, left knee, initial encounter (principal); S83.282A Other tear of lateral meniscus, current injury, left knee, initial encounter; W54.1XXA Struck by dog, initial encounter; E11.9 Type 2 diabetes mellitus without complications; I10 Essential (primary) hypertension; E78.5 Hyperlipidemia, unspecified; G47.33 Obstructive sleep apnea (adult) (pediatric); J45.909 Unspecified asthma, uncomplicated; K21.9 Gastro-esophageal reflux disease without esophagitis; G40.909 Epilepsy, unspecified, not intractable, without status epilepticus; M19.90 Unspecified osteoarthritis, unspecified site; G43.909 Migraine, unspecified, not intractable, without status migrainosus; Z86.718 Personal history of other venous thrombosis and embolism; Z86.73 Personal history of transient ischemic attack (TIA), and cerebral infarction without residual deficits; Z93.3 Colostomy status; Z87.891 Personal history of nicotine dependence; Z79.82 Long term (current) use of aspirin; Z79.899 Other long term (current) drug therapy; Z79.84 Long term (current) use of oral hypoglycemic drugs; Z79.891 Long term (current) use of opiate analgesic; Z88.8 Allergy status to other drugs, medicaments and biological substances; Z88.1 Allergy status to other antibiotic agents; Z98.890 Other specified postprocedural states; Z80.9 Family history of malignant neoplasm, unspecified; Z83.3 Family history of diabetes mellitus; Z82.49 Family history of ischemic heart disease and other diseases of the circulatory system; Z82.69 Family history of other diseases of the musculoskeletal system and connective tissue
CPT/HCPCS: 29880; J2250; J1100; J0690; J2405; J0171; J2001; J3010; J1885; J0330; J2704; J1170

== ENCOUNTER 2020-06-25 16:18 | Emergency (ER) | payer OTHER ==
[2020-06-25 16:24] VITALS: TEMP 98.5
--- NOTE | 2020-06-25 17:38 | US ---
EXAMINATION TYPE: US venous doppler duplex LE LT DATE OF EXAM: 06/25/2020 5:24 PM COMPARISON: NONE CLINICAL HISTORY: recent surgery, lower leg swelling, pain. Left leg pain and edema. Left knee surger y 2 weeks ago SIDE PERFORMED: left TECHNIQUE: The lower extremity deep venous system is examined utilizing real time linear array sonog zamzam with graded compression, doppler sonography and color-flow sonography. VESSELS IMAGED: Common Femoral Vein Deep Femoral Vein Greater Saphenous Vein * Femoral Vein Popliteal Vein Small Saphenous Vein * Proximal Calf Veins (* superficial vessels) Left Leg: no evidence of DVT IMPRESSION: No evidence of deep vein thrombosis in the left leg.
--- NOTE | 2020-06-25 18:00 | ED ---
Extremity Problem HPI - General Chief complaint: Extremity Problem,Nontraumatic Stated complaint: SWELLED CALF/L KNEE SURGERY LAST WEEK Time Seen by Provider: 06/25/20 16:31 Source: patient Mode of arrival: wheelchair Limitations: no limitations - History of Present Illness Initial comments: Patient is a 50-year-old female with recent left knee surgery, presenting to the emergency Department with complaints of left lower leg swelling and pain. Patient states she did call her surgeon, Dr. Woodall who recommended she come in to the ER to rule out a DVT. Patient states she does have history of DVT and was on eliquis however they stopped that on May 25 to prepare for her surgery. Patient had a meniscal repair done on June 11. Patient states a few days ago she developed some soreness of her left calf as well as some mild swelling. Patient was concerning contacted Dr. Woodall who wanted to rule out a DVT. Patient denies any fever, chills, no redness or warmth to the area. She states her knee has been doing well since the surgery, there is some generalized stiffness and discomfort at times. She has been walking with crutches for ass istance. She has been trying to get up and walk around to prevent DVTs. Patient denies any falls or trauma. She has no further complaints at this time. Upon arrival to the ER, her vital signs are stable. - Related Data Home Medications Medication Instructions Recorded Confirmed Docusate Sodium [Dulcolax Stool 100 mg PO HS PRN 03/03/14 06/11/20 Softener] Omeprazole [PriLOSEC] 20 mg PO BID 04/03/14 06/11/20 Azelastine HCl [Optivar 0.05% 1 drop BOTH EYES BID 06/12/16 06/11/20 Ophth Soln] OXcarbazepine [Oxtellar Xr] 900 mg PO QAM 06/12/16 06/11/20 Prochlorperazine [Compazine] 10 mg PO TID PRN 06/12/16 06/11/20 Verapamil HCl [Verapamil ER] 120 mg PO QAM 06/12/16 06/11/20 Gabapentin 600 mg PO TID 06/07/18 06/11/20 metFORMIN HCL [metFORMIN HCL ER] 500 mg PO BID 06/07/18 06/11/20 HYDROcodone/APAP 10-325MG [[place] 1 tab PO TID 09/19/18 06/11/20 10-325] Lidocaine 2% Gel [Xylocaine Jelly 1 applic TOPICAL BID PRN 02/20/19 06/11/20 2%] Albuterol Nebulized [Ventolin 2.5 mg INHALATION RT-TID PRN 04/07/19 06/11/20 Nebulized] Butalb/APAP/Caff 50-325-40Mg 1 tab PO Q8H PRN 04/07/19 06/11/20 [Fioricet 50-325-40] Citalopram Hydrobromide [CeleXA] 20 mg PO QAM 04/07/19 06/11/20 Oxybutynin ER [Ditropan Xl] 15 mg PO DAILY 04/07/19 06/11/20 Losartan [Cozaar] 50 mg PO QAM 04/21/19 06/11/20 Atorvastatin [Lipitor] 40 mg PO DAILY 01/06/20 06/11/20 Albuterol Sulfate [Ventolin HFA] 2 puff INHALATION RT-QID PRN 03/01/20 06/11/20 Fluticasone Nasal [place] [Flonase 2 spray EA NOSTRIL DAILY 03/01/20 06/11/20 Nasal [place]] Loratadine 10 mg PO DAILY 03/01/20 06/11/20 Previous Rx's Medication Instructions Recorded Ibuprofen [Motrin] 600 mg PO Q8HR PRN #30 tab 06/25/20 Allergies Allergy/AdvReac Type Severity Reaction Status Date / Time azithromycin Allergy Swelling Verified 06/25/20 16:24 [From Zithromax Z-Brayden] ondansetron HCl Allergy Vomiting Verified 06/25/20 16:24 [From Zofran (as hydrochloride)] onion Allergy Swelling Verified 06/25/20 16:24 Review of Systems ROS Statement: Those systems with pertinent positive or pertinent negative responses have been documented in the HPI. ROS Other: All systems not noted in ROS Statement are negative. Past Medical History Past Medical History: Asthma, CVA/TIA, Diabetes Mellitus, Deep Vein Thrombosis (DVT), GERD/Reflux, Hyperlipidemia, Hypertension, Musculoskeletal Disorder, Osteoarthritis (OA), Seizure Disorder, Sleep Apnea/CPAP/BIPAP Additional Past Medical History / Comment(s): CHRONIC BACK PAIN , DDD, OCCASIONAL SCIATICA, HX OF SHATTERED TAILBONE, CHRONIC CERVICAL PAIN WITH SPURS , grand mal seizure with comprehension issues/loss of memory ever since (2017), "black outs" -no known cause,diverticulitis/colitis, constipation, overactive bladder, kidney stones., LAST SEIZURE May 2019, 03/2019- TIA. , WEARS BACK BRACE, shingles, on Rx for UTI, starting topical for vaginal yeast infection, stroke october 2019 History of Any Multi-Drug Resistant Organisms: MRSA Date of last positivie culture/infection: 07/12/19 MDRO Source:: belly button Past Surgical History: Appendectomy, Bowel Resection, Cholecystectomy, Heart Catheterization, Hysterectomy, Orthopedic Surgery, Tubal Ligation, Uterine Ablation Additional Past Surgical History / Comment(s): Bowel resection for colitis/diverticulitis, EGDs, colonoscopies, loop recorder now removed, multiple pain clinic procedures, bilateral rotator cuff surgery, R hand ganglion cyst removed 3 times, tilt table test, MRI with anesthesia d/t claustrophobia., BREE BICEP SURGERY Past Anesthesia/Blood Transfusion Reactions: Motion Sickness Type of Cardiac Device: Loop Device Placement Date:: MAR 2009 AND 2013 Past Psychological History: Anxiety Smoking Status: Former smoker Past Alcohol Use History: None Reported Past Drug Use History: None Reported - Past Family History Mother Family Medical History: Cancer Father Family Medical History: Cancer General Exam - General Exam Comments Initial Comments: GENERAL: Patient is well-developed and well-nourished. Patient is nontoxic and in no acute distress. HEAD: Atraumatic, normocephalic. EYES: Pupils equal round and reactive to light, extraocular movements intact, sclera anicteric, conjunctiva are normal. Eyelids were unremarkable. ENT: TMs normal, nares patent, oropharynx clear without exudates. Moist mucous membranes. NECK: Normal range of motion, supple without lymphadenopathy or JVD. LUNGS: Unlabored respirations. Breath sounds clear to auscultation bilaterally and equal. No wheezes rales or rhonchi. HEART: Regular rate and rhythm without murmurs, rubs or gallops. ABDOMEN: Soft, nontender, normoactive bowel sounds. No guarding, no rebound. No masses appreciated. : Deferred MUSCULOSKELETAL: Left knee has surgical incisions present from recent surgery, wounds look clean and dry, no signs of infection. Patient has decreased range of motion secondary to her recent surgery. There is no swelling of the left knee. She does have some tenderness of the left calf, there is some very mild swelling compared to her right lower leg, no erythema, no warmth to the area, no signs of an infection. Right lower extremity is normal, with adequate strength and normal range of motion, no pitting or edema. No clubbing or cyanosis. NEUROLOGICAL: Patient is alert and oriented x 3. Motor and sensory are also intact. Cranial nerves II through XII grossly intact. Symmetrical smile. Normal speech. PSYCH: Normal mood, normal affect. SKIN: Warm, Dry, normal turgor, no rashes or lesions noted. Limitations: no limitations Course Vital Signs 06/25/20 16:20 Temperature 98.5 F Pulse Rate 91 Respiratory 16 Rate Blood Pressure 123/83 O2 Sat by Pulse 97 Oximetry Medical Decision Making - Medical Decision Making A 50-year-old female with history of left knee meniscal repair [address] Woodall. She presents today to rule out a DVT of the left lower leg secondary to pain and swelling 2 days. Patient has no signs of infection, no erythema or warmth, no fever or chills. Her vitals are stable. Ultrasound revealed no evidence of a DVT of the left lower extremity. I discussed these findings with the patient. Her soreness is most likely related to postsurgical, overuse as patient states she has been trying to walk a lot more lately. I recommended heat to the lower leg, gentle stretching, ankle pumps. She will follow-up with her surgeon. She is stable for discharge. Return parameters were discussed with the patient and she verbalized understanding. Case discussed with Dr. Tejada. Disposition Clinical Impression: Pain in left lower leg Disposition: HOME SELF-CARE Condition: Stable Instructions (If sedation given, give patient instructions): Musculoskeletal Pain (ED) Additional Instructions: Please return to the Emergency Department if symptoms worsen or any other concerns. Continue with your already prescribed pain medications, may alternate with ibuprofen for anti-inflammatory relief. Ankle pumps, 10x each hour. Heat to the lower leg, gentle stretching. Follow-up with your surgeon. Prescriptions: Ibuprofen [Motrin] 600 mg PO Q8HR PRN #30 tab PRN Reason: Pain Is patient prescribed a controlled substance at d/c from ED?: No Referrals: Connor King Jr, DO [Primary Care Provider] - 1-2 days
[2020-06-25 18:22] VITALS: BP 125/72; PULSE 82; RESP 18
== END 2020-06-25 18:21 | disposition home or self-care (01) ==
LOC: EC 16:18
DX: M79.662 Pain in left lower leg (principal); M79.89 Other specified soft tissue disorders; F41.9 Anxiety disorder, unspecified; G89.29 Other chronic pain; M54.9 Dorsalgia, unspecified; G40.909 Epilepsy, unspecified, not intractable, without status epilepticus; Z79.899 Other long term (current) drug therapy; Z79.891 Long term (current) use of opiate analgesic; Z88.0 Allergy status to penicillin; Z88.8 Allergy status to other drugs, medicaments and biological substances; Z91.018 Allergy to other foods; Z98.890 Other specified postprocedural states; Z87.891 Personal history of nicotine dependence; Z86.14 Personal history of Methicillin resistant Staphylococcus aureus infection
CPT/HCPCS: 99283

== ENCOUNTER → 2020-07-30 | Outpatient (CLI) | payer OTHER ==
--- NOTE | 2020-07-30 15:03 | MR ---
EXAMINATION TYPE: MR knee RT wo con DATE OF EXAM: 07/30/2020 COMPARISON: Outside right knee x-ray July 19, 2020 HISTORY: R knee pain with locking and swelling per patient. TECHNIQUE: Multiplanar, multisequence imaging of the right knee is performed without IV contrast. FINDINGS: Exam slightly suboptimal as there is motion artifact degradation. MEDIAL MENISCUS: Anterior and posterior horns are intact without tear. LATERAL MENISCUS: Anterior and posterior horns are intact without tear. CRUCIATE LIGAMENTS: The anterior and posterior cruciate ligaments are intact and unremarkable. COLLATERAL LIGAMENTS: The medial collateral ligament and lateral collateral ligament complex are inta ct and unremarkable. EXTENSOR MECHANISM: Visualized quadriceps and patellar tendons are intact. Moderate size spur anterio r superior patellar distal quadriceps tendon attachment. EFFUSION: No significant suprapatellar joint effusion. POPLITEAL CYST: No popliteal/williamson cyst. TRICOMPARTMENT SPACES: Tricompartmental joint spaces are preserved. No significant spurring is seen. CARTILAGE: Tricompartment articular cartilage is maintained. BONE MARROW SIGNAL: No focal abnormal marrow signal is appreciated. OTHER: No additional significant abnormality is appreciated. IMPRESSION: No meniscal or ligamentous tear is seen. Fairly unremarkable study.
== END | disposition home or self-care (01) ==
LOC: RADMRIMAIN 13:07
PROVIDERS: ATTEND Orthopaedic Surgery
DX: M25.561 Pain in right knee (principal)

== ENCOUNTER 2020-08-05 18:05 | Emergency (ER) | payer OTHER ==
[2020-08-05 18:13] VITALS: BP 119/78; PULSE 98; RESP 18; TEMP 97.9
--- NOTE | 2020-08-05 18:34 | XR ---
Result: Clinical History: Pain. Comparison: None available. Technique: 3 views of the right shoulder. Findings: The bone mineralization is appropriate for age. No acute fracture or dislocation is seen. The acromioclavicular and glenohumeral joints demonstrate mild degenerative changes. The humeral head is well-seated in the glenoid. The visualized lung is clear. Impression: No acute osseous abnormality.
[2020-08-05] MEDS ORDERED: KETOROLAC 15 MG/ML 1 ML VIAL IM STA (19:28)
[2020-08-05] MEDS ORDERED: MORPHINE SULFATE 4 MG/ML SYRINGE IM STA (19:28)
--- NOTE | 2020-08-05 19:45 | ED ---
Fall HPI - General Chief Complaint: Fall Stated Complaint: fall, rt shoulder injury Time Seen by Provider: 08/05/20 19:05 Source: patient Mode of arrival: ambulatory - History of Present Illness Initial Comments: 50-year-old female patient presents to the emergency department today for evaluation of right shoulder pain after experiencing a slip and fall accident. Patient states around 5 PM this evening she was walking when she slipped on the ice and fell landing on her right shoulder. States she heard a "pop". Denies hitting her head or losing consciousness. Denies any neck or back pain. States she is having significant discomfort to the right shoulder and over the deltoid region on her upper arm. She denies any numbness or tingling to the hand. Denies any pain or difficulty with range of motion of the elbow. States she has had previous rotator cuff surgery to this shoulder. Patient denies any headache, chest pain, shortness of breath, dizziness, weakness, abdominal pain, nausea, vomiting, or difficulties with bowel movements or urination. - Related Data Home Medications Medication Instructions Recorded Confirmed Docusate Sodium [Dulcolax Stool 100 mg PO HS PRN 03/03/14 06/11/20 Softener] Omeprazole [PriLOSEC] 20 mg PO BID 04/03/14 06/11/20 Azelastine HCl [Optivar 0.05% 1 drop BOTH EYES BID 06/12/16 06/11/20 Ophth Soln] OXcarbazepine [Oxtellar Xr] 900 mg PO QAM 06/12/16 06/11/20 Prochlorperazine [Compazine] 10 mg PO TID PRN 06/12/16 06/11/20 Verapamil HCl [Verapamil ER] 120 mg PO QAM 06/12/16 06/11/20 Gabapentin 600 mg PO TID 06/07/18 06/11/20 metFORMIN HCL [metFORMIN HCL ER] 500 mg PO BID 06/07/18 06/11/20 HYDROcodone/APAP 10-325MG [[place] 1 tab PO TID 09/19/18 06/11/20 10-325] Lidocaine 2% Gel [Xylocaine Jelly 1 applic TOPICAL BID PRN 02/20/19 06/11/20 2%] Albuterol Nebulized [Ventolin 2.5 mg INHALATION RT-TID PRN 04/07/19 06/11/20 Nebulized] Butalb/APAP/Caff 50-325-40Mg 1 tab PO Q8H PRN 04/07/19 06/11/20 [Fioricet 50-325-40] Citalopram Hydrobromide [CeleXA] 20 mg PO QAM 04/07/19 06/11/20 Oxybutynin ER [Ditropan Xl] 15 mg PO DAILY 04/07/19 06/11/20 Losartan [Cozaar] 50 mg PO QAM 04/21/19 06/11/20 Atorvastatin [Lipitor] 40 mg PO DAILY 01/06/20 06/11/20 Albuterol Sulfate [Ventolin HFA] 2 puff INHALATION RT-QID PRN 03/01/20 06/11/20 Fluticasone Nasal [place] [Flonase 2 spray EA NOSTRIL DAILY 03/01/20 06/11/20 Nasal [place]] Loratadine 10 mg PO DAILY 03/01/20 06/11/20 Previous Rx's Medication Instructions Recorded Ibuprofen [Motrin] 600 mg PO Q8HR PRN #30 tab 06/25/20 Allergies Allergy/AdvReac Type Severity Reaction Status Date / Time azithromycin Allergy Swelling Verified 08/05/20 18:13 [From Zithromax Z-Brayden] ondansetron HCl Allergy Vomiting Verified 08/05/20 18:13 [From Zofran (as hydrochloride)] onion Allergy Swelling Verified 08/05/20 18:13 Review of Systems ROS Statement: Those systems with pertinent positive or pertinent negative responses have been documented in the HPI. ROS Other: All systems not noted in ROS Statement are negative. 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 , WEARS BACK BRACE, shingles, on Rx for UTI, starting topical for vaginal yeast infection, stroke october 2019 History of Any Multi-Drug Resistant Organisms: MRSA Date of last positivie culture/infection: 07/12/19 MDRO Source:: belly button Past Surgical History: Appendectomy, Bowel Resection, Cholecystectomy, Heart Catheterization, Hysterectomy, Orthopedic Surgery, Tubal Ligation, Uterine Ablation Additional Past Surgical History / Comment(s): Bowel resection for colitis/diverticulitis, EGDs, colonoscopies, loop recorder now removed, multiple pain clinic procedures, bilateral rotator cuff surgery, R hand ganglion cyst removed 3 times, tilt table test, MRI with anesthesia d/t claustrophobia., BREE BICEP SURGERY Past Anesthesia/Blood Transfusion Reactions: Motion Sickness Type of Cardiac Device: Loop Device Placement Date:: MAR 2009 AND 2013 Past Psychological History: Anxiety Smoking Status: Former smoker Past Alcohol Use History: None Reported Past Drug Use History: None Reported - Past Family History Mother Family Medical History: Cancer Additional Family Medical History / Comment(s): Uterine cancer. Father Family Medical History: Cancer Additional Family Medical History / Comment(s): Left lung cancer. General Exam Limitations: no limitations General appearance: alert, in no apparent distress, other (this is a well-d eveloped, well-nourished adult female patient in no acute distress.) Head exam: Present: atraumatic, normocephalic, normal inspection Eye exam: Present: normal appearance, PERRL, EOMI. Absent: scleral icterus, conjunctival injection, nystagmus, periorbital swelling ENT exam: Present: normal exam, normal oropharynx, mucous membranes moist Neck exam: Present: normal inspection, full ROM, other (Nontender, no step-off, no deformity to firm midline palpation of the posterior cervical spine. Full r mak of motion without pain or limitation.). Absent: tenderness, meningismus, lymphadenopathy Respiratory exam: Present: normal lung sounds bilaterally. Absent: respiratory distress, wheezes, rales, rhonchi, stridor Cardiovascular Exam: Present: regular rate, normal rhythm, normal heart sounds. Absent: systolic murmur, diastolic murmur, rubs, gallop, clicks GI/Abdominal exam: Present: soft, normal bowel sounds. Absent: distended, tenderness, guarding, rebound, rigid Extremities exam: Present: normal inspection, full ROM, tenderness (right acromioclavicular joint. Over the right deltoid.), normal capillary refill, other (Skin to the right arm is pink, warm, dry. Cap refills less than 3 seconds. Patient refuses to move the arm due to increased pain with movement. Radial pulses 2+. Patient is able to touch the opposite shoulder with her right hand). Absent: pedal edema, joint swelling, calf tenderness Neurological exam: Present: alert, oriented X3, CN II-XII intact Psychiatric exam: Present: normal affect, normal mood Skin exam: Present: warm, dry, intact, normal color. Absent: rash Course Vital Signs 08/05/20 18:09 Temperature 97.9 F Pulse Rate 98 Respiratory 18 Rate Blood Pressure 119/78 O2 Sat by Pulse 97 Oximetry Medical Decision Making - Medical Decision Making 50-year-old female patient presents to the emergency department today for evaluation of right shoulder pain after a slip and fall. Physical examination did reveal tenderness over the right acromioclavicular jointand right deltoid. Neurovascular status is intact. X-rays were negative for bony abnormality. Patient was put in a sling. She is educated regarding gentle range of motion of the shoulder several times per day on the sling. She is instructed to follow-up with orthopedics for reevaluation as soon as possible. States she sees Dr. Woodall orthopedics generally and is requesting to follow-up with him. She will be discharged to follow-up with her primary care physician for recheck in 1-2 days. Return parameters were discussed in detail. She verbalizes understanding and agrees with this plan. Case discussed with my attending Dr. Tejada. - Radiology Data Radiology results: report reviewed, image reviewed 3 views of the right shoulder obtained. Report was reviewed in its entirety. Impression by Dr. Corral shows no acute osseous abnormality. Disposition Clinical Impression: Right shoulder injury, Muscle strain Disposition: HOME SELF-CARE Condition: Good Instructions (If sedation given, give patient instructions): Rotator Cuff Injury (ED), How to Use a Sling (ED) Additional Instructions: Take your arm out of the sling a few times per day to perform gentle range of motion to the shoulder. Follow up with [employer] [facility] for further evaluation as soon as possible. Usual medications for pain control. Return to the emergency department for any new, worsening, or concerning symptoms. Is patient prescribed a controlled substance at d/c from ED?: No Referrals: Connor King Jr, DO [Primary Care Provider] - 1-2 days Osvaldo Nye MD [STAFF PHYSICIAN] - 1-2 days Time of Disposition: 19:45
== END 2020-08-05 20:06 | disposition home or self-care (01) ==
LOC: EC 18:05
DX: S46.911A Strain of unspecified muscle, fascia and tendon at shoulder and upper arm level, right arm, initial encounter (principal); J45.909 Unspecified asthma, uncomplicated; E11.9 Type 2 diabetes mellitus without complications; K21.9 Gastro-esophageal reflux disease without esophagitis; I10 Essential (primary) hypertension; E78.5 Hyperlipidemia, unspecified; G40.909 Epilepsy, unspecified, not intractable, without status epilepticus; G47.30 Sleep apnea, unspecified; F41.9 Anxiety disorder, unspecified; Z79.84 Long term (current) use of oral hypoglycemic drugs; Z79.899 Other long term (current) drug therapy; Z79.51 Long term (current) use of inhaled steroids; Z88.1 Allergy status to other antibiotic agents; Z88.8 Allergy status to other drugs, medicaments and biological substances; Z91.018 Allergy to other foods; Z99.89 Dependence on other enabling machines and devices; Z87.891 Personal history of nicotine dependence; Z86.73 Personal history of transient ischemic attack (TIA), and cerebral infarction without residual deficits; Z86.718 Personal history of other venous thrombosis and embolism; W00.0XXA Fall on same level due to ice and snow, initial encounter; Y93.01 Activity, walking, marching and hiking
CPT/HCPCS: 73030; 99283; 96372 ×2; J2270; J1885

== ENCOUNTER 2020-08-30 12:15 | Emergency (ER) | payer OTHER ==
[2020-08-30 12:19] VITALS: BP 149/84; PULSE 107; RESP 18; TEMP 97.8
[2020-08-30] MEDS ORDERED: KETOROLAC 15 MG/ML 1 ML VIAL IM STA (12:49)
[2020-08-30] MEDS ORDERED: LIDOCAINE 5% PATCH TOPICAL STA (12:49)
[2020-08-30] MEDS ORDERED: CYCLOBENZAPRINE 10 MG TAB PO STA (12:49)
--- NOTE | 2020-08-30 12:52 | ED ---
Extremity Problem HPI - General Chief complaint: Extremity Problem,Nontraumatic Stated complaint: Right Arm Injury Time Seen by Provider: 08/30/20 12:39 Source: patient Mode of arrival: ambulatory Limitations: no limitations - History of Present Illness Initial comments: 50-year-old female presents to emergency Department with a chief complaint of right shoulder pain. Patient reports about month ago she had a slip and fall incident and fell on the right shoulder. She does have history of rotator cuff repair on that shoulder as well. Patient reports she followed up with Dr. Woodall who gave her injections as well as a sling. She has an appointment with him again in 2 days. Patient reports the pain is becoming unbearable and she is not able to sleep at night. Patient states she takes Drury for chronic back pain and it is not touching the shoulder pain. She denies any numbness or tingling. States the pain is exacerbated with any movement of the right shoulder. States the pain is also moving slightly down towards the elbow. She denies any new injuries. - Related Data Home Medications Medication Instructions Recorded Confirmed Docusate Sodium [Dulcolax Stool 100 mg PO HS PRN 03/03/14 06/11/20 Softener] Omeprazole [PriLOSEC] 20 mg PO BID 04/03/14 06/11/20 Azelastine HCl [Optivar 0.05% 1 drop BOTH EYES BID 06/12/16 06/11/20 Ophth Soln] OXcarbazepine [Oxtellar Xr] 900 mg PO QAM 06/12/16 06/11/20 Prochlorperazine [Compazine] 10 mg PO TID PRN 06/12/16 06/11/20 Verapamil HCl [Verapamil ER] 120 mg PO QAM 06/12/16 06/11/20 Gabapentin 600 mg PO TID 06/07/18 06/11/20 metFORMIN HCL [metFORMIN HCL ER] 500 mg PO BID 06/07/18 06/11/20 HYDROcodone/APAP 10-325MG [Drury 1 tab PO TID 09/19/18 06/11/20 10-325] Lidocaine 2% Gel [Xylocaine Jelly 1 applic TOPICAL BID PRN 02/20/19 06/11/20 2%] Albuterol Nebulized [Ventolin 2.5 mg INHALATION RT-TID PRN 04/07/19 06/11/20 Nebulized] Butalb/APAP/Caff 50-325-40Mg 1 tab PO Q8H PRN 04/07/19 06/11/20 [Fioricet 50-325-40] Citalopram Hydrobromide [CeleXA] 20 mg PO QAM 04/07/19 06/11/20 Oxybutynin ER [Ditropan Xl] 15 mg PO DAILY 04/07/19 06/11/20 Losartan [Cozaar] 50 mg PO QAM 04/21/19 06/11/20 Atorvastatin [Lipitor] 40 mg PO DAILY 01/06/20 06/11/20 Albuterol Sulfate [Ventolin HFA] 2 puff INHALATION RT-QID PRN 03/01/20 06/11/20 Fluticasone Nasal [place] [Flonase 2 spray EA NOSTRIL DAILY 03/01/20 06/11/20 Nasal [place]] Loratadine 10 mg PO DAILY 03/01/20 06/11/20 Previous Rx's Medication Instructions Recorded Ibuprofen [Motrin] 600 mg PO Q8HR PRN #30 tab 06/25/20 Cyclobenzaprine [Flexeril] 10 mg PO TID PRN #15 tab 08/30/20 Allergies Allergy/AdvReac Type Severity Reaction Status Date / Time azithromycin Allergy Swelling Verified 08/30/20 12:19 [From Zithromax Z-Brayden] ondansetron HCl Allergy Vomiting Verified 08/30/20 12:19 [From Zofran (as hydrochloride)] onion Allergy Swelling Verified 08/30/20 12:19 Review of Systems ROS Statement: Those systems with pertinent positive or pertinent negative responses have been documented in the HPI. ROS Other: All systems not noted in ROS Statement are negative. 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 , WEARS BACK BRACE, shingles, on Rx for UTI, starting topical for vaginal yeast infection, stroke october 2019 History of Any Multi-Drug Resistant Organisms: MRSA Date of last positivie culture/infection: 07/12/19 MDRO Source:: belly button Past Surgical History: Appendectomy, Bowel Resection, Cholecystectomy, Heart Catheterization, Hysterectomy, Orthopedic Surgery, Tubal Ligation, Uterine Ablation Additional Past Surgical History / Comment(s): Bowel resection for colitis/diverticulitis, EGDs, colonoscopies, loop recorder now removed, multiple pain clinic procedures, bilateral rotator cuff surgery, R hand ganglion cyst removed 3 times, tilt table test, MRI with anesthesia d/t claustrophobia., BREE BICEP SURGERY Past Anesthesia/Blood Transfusion Reactions: Motion Sickness Type of Cardiac Device: Loop Device Placement Date:: MAR 2009 AND 2013 Past Psychological History: Anxiety Smoking Status: Former smoker Past Alcohol Use History: None Reported Past Drug Use History: None Reported - Past Family History Mother Family Medical History: Cancer Additional Family Medical History / Comment(s): Uterine cancer. Father Family Medical History: Cancer Additional Family Medical History / Comment(s): Left lung cancer. General Exam Limitations: no limitations General appearance: alert, in no apparent distress, obese Head exam: Present: atraumatic, normocephalic, normal inspection Eye exam: Present: normal appearance, PERRL, EOMI Pupils: Present: normal accommodation ENT exam: Present: normal exam, normal oropharynx, mucous membranes moist Neck exam: Present: normal inspection, full ROM. Absent: tenderness Respiratory exam: Present: normal lung sounds bilaterally. Absent: respiratory distress Cardiovascular Exam: Present: regular rate, normal rhythm, normal heart sounds Extremities exam: Present: normal inspection (She has a sling in the right upper extremity), full ROM, tenderness (Anterior deltoid tenderness.), normal capillary refill, other (Palpable ulnar and radial pulses bilaterally. Sensation intact). Absent: pedal edema, joint swelling, calf tenderness Back exam: Present: normal inspection, full ROM. Absent: tenderness Neurological exam: Present: alert, oriented X3 Psychiatric exam: Present: normal affect, normal mood Skin exam: Present: warm, dry, intact, normal color Course Vital Signs 08/30/20 12:17 Temperature 97.8 F Pulse Rate 107 H Respiratory 18 Rate Blood Pressure 149/84 O2 Sat by Pulse 97 Oximetry Medical Decision Making - Medical Decision Making 50-year-old female presents to emergency department with a chief complaint right shoulder pain. Patient had a slip and fall with an injury to her right shoulder about one month ago. She has rotator cuff repair on that shoulder. She is going to see Dr. Woodall in 2 days. Patient is essentially come in for symptomatic control because the pain is not getting better. Physical examination is unremarkable. She'll was neurovascularly intact. Patient was given Toradol, Lidoderm patch and Flexeril. Will be discharged with Flexeril. She does report some improvement in symptoms. She does take Drury regularly for back pain. Strict return problems were thoroughly discussed with patient was understanding and agreeable. Case discussed with Disposition Clinical Impression: Right shoulder pain Disposition: HOME SELF-CARE Condition: Stable Instructions (If sedation given, give patient instructions): Rotator Cuff Injury (ED), Rotator Cuff Tear Repair (DC) Additional Instructions: Take prescribed medication as directed. Follow up with the school psychology specialist. Return to emergency department if symptoms worsen. Prescriptions: Cyclobenzaprine [Flexeril] 10 mg PO TID PRN #15 tab PRN Reason: Muscle Spasm Is patient prescribed a controlled substance at d/c from ED?: No Referrals: Connor King Jr, DO [Primary Care Provider] - 1-2 days Time of Disposition: 13:16
== END 2020-08-30 13:28 | disposition home or self-care (01) ==
LOC: EC 12:15
DX: M25.511 Pain in right shoulder (principal); E11.9 Type 2 diabetes mellitus without complications; E78.5 Hyperlipidemia, unspecified; I10 Essential (primary) hypertension; J45.909 Unspecified asthma, uncomplicated; F41.9 Anxiety disorder, unspecified; K21.9 Gastro-esophageal reflux disease without esophagitis; M19.90 Unspecified osteoarthritis, unspecified site; Z79.1 Long term (current) use of non-steroidal anti-inflammatories (NSAID); Z79.84 Long term (current) use of oral hypoglycemic drugs; Z86.718 Personal history of other venous thrombosis and embolism; Z86.73 Personal history of transient ischemic attack (TIA), and cerebral infarction without residual deficits; Z87.891 Personal history of nicotine dependence
CPT/HCPCS: 99283; 96372; J1885

== ENCOUNTER → 2020-09-29 | Outpatient (CLI) | payer OTHER ==
--- NOTE | 2020-09-29 09:40 | CT ---
EXAMINATION TYPE: CT shoulder RT wo con DATE OF EXAM: 09/29/2020 COMPARISON: 08/05/2020 plain film HISTORY: Severe shoulder pain since fall CT DLP: 584.9 mGycm Automated exposure control for dose reduction was used. Contrast: None Technique: Axial images 3 mm thick sections. Reconstructed images in the coronal and sagittal plane. 3-D reconstructed images performed separately by the technologist are present. FINDINGS: The acromioclavicular junction appears intact. Humeral head articulates with the glenoid. Scapula serena ears normal. Coracoid process is unremarkable. Clavicle appears intact. Proximal humerus. Limited CT sections were obtained through the right apex. Right upper lung field is clear. Muscular d ensity is normal. No muscle atrophy is noted. Right axillary region appears normal. No suspicious zac nopathy is evident. IMPRESSION: 1. NORMAL RIGHT SCAPULA.
== END | disposition home or self-care (01) ==
LOC: RADCTMAIN 05:56
PROVIDERS: ATTEND Family Medicine
DX: M25.511 Pain in right shoulder (principal); S49.91XA Unspecified injury of right shoulder and upper arm, initial encounter

== ENCOUNTER → 2020-10-15 | Outpatient (CLI) | payer OTHER ==
--- NOTE | 2020-10-16 11:26 | MR ---
EXAMINATION TYPE: MR knee LT wo con DATE OF EXAM: 10/15/2020 COMPARISON: Plain film 10/13/2020 HISTORY: Left inner and outer knee pain, behind knee, behind kneecap, locking, and swelling for 6 mon ths. TECHNIQUE: Multiplanar, multisequence imaging of the left knee is performed without IV contrast. FINDINGS: MEDIAL MENISCUS: Posterior horn of the medial meniscus shows linear increased signal which extends th e articular surface, sagittal image #22 and 23 LATERAL MENISCUS: Posterior horn of the lateral meniscus shows undersurface increased signal on sagit alisa image #7 which is thought to extend to the articular surface CRUCIATE LIGAMENTS: The anterior and posterior cruciate ligaments are intact and unremarkable. COLLATERAL LIGAMENTS: The medial collateral ligament and lateral collateral ligament complex are inta ct and unremarkable. EXTENSOR MECHANISM: Visualized quadriceps and patellar tendons are intact. EFFUSION: There is a moderate joint effusion POPLITEAL CYST: No popliteal/williamson cyst. TRICOMPARTMENT SPACES: Joint space loss in the medial compartment CARTILAGE: Grade 3 to grade IV chondromalacia present in the medial compartment BONE MARROW SIGNAL: Subchondral hyperintensity on T2, intermediate signal on T1 present in the medial femoral condyle OTHER: Some subcutaneous edema changes present.. IMPRESSION: Tears of the posterior horns of the medial lateral meniscus. Osteoarthritis. Joint effusion.
== END | disposition home or self-care (01) ==
LOC: RADMRIMAIN 20:05
PROVIDERS: ATTEND Family Medicine
DX: M23.322 Other meniscus derangements, posterior horn of medial meniscus, left knee (principal); M17.12 Unilateral primary osteoarthritis, left knee

== ENCOUNTER → 2020-11-15 | Outpatient (CLI) | payer OTHER ==
[2020-11-15 14:19] LABS: Basophils # (A) 0.1 k/uL (0-0.2); Basophils % (A) 1 %; Eosinophils # (A) 0.2 k/uL (0-0.7); Eosinophils % (A) 4 %; HCT 40.3 % (34.0-46.0); Lymphocytes # (A) 2.1 k/uL (1.0-4.8); Lymphocytes % (A) 33 %; MCH 32.6 pg (25.0-35.0); MCHC 34.7 g/dL (31.0-37.0); MCV 93.9 fL (80.0-100.0); Mean Platelet Volume 7.1; Monocytes # (A) 0.4 k/uL (0-1.0); Monocytes % (A) 6 %; Neutrophils # (A) 3.5 k/uL (1.3-7.7); Neutrophils % (A) 55 %; Platelet Count 276 k/uL (150-450); RBC 4.29 m/uL (3.80-5.40); RDW 13.2 % (11.5-15.5); WBC 6.4 k/uL (3.8-10.6)
[2020-11-15 14:28] LABS: Potassium 4.2 mmol/L (3.5-5.1)
== END | disposition home or self-care (01) ==
LOC: LABPAT 13:13
PROVIDERS: ATTEND Orthopaedic Surgery
DX: Z01.810 Encounter for preprocedural cardiovascular examination (principal); Z01.812 Encounter for preprocedural laboratory examination; M23.92 Unspecified internal derangement of left knee
CPT/HCPCS: 80051; 85025; 93005

== ENCOUNTER 2020-12-03 07:48 | Day surgery (SDC) | payer OTHER ==
[2020-12-02 08:41] VITALS: BMI 36.8
--- NOTE | 2020-12-02 09:31 | HP ---
HISTORY AND PHYSICAL CHIEF COMPLAINT: Left knee pain. HISTORY OF PRESENT ILLNESS: Patient is a 50-year-old female on disability, who presents with left knee pain after an injury October 01, 2020. She twisted and had a give-way. She notes medial pain and swelling ever since. She is having a difficult time with normal weightbearing. She has tried bracing in addition to medications without much relief. She has also tried previous aspiration and injections. PAST MEDICAL HISTORY: Significant for asthma, type 2 diabetes, reflux disease, hypercholesterolemia, hypertension, migraine, seizure disorder, and blood clots. PAST SURGICAL HISTORY: Significant for bilateral shoulder surgery in addition to colostomy and left knee arthroscopy. CURRENT MEDICATIONS: Albuterol, aspirin, atorvastatin, citalopram, famotidine, gabapentin, [place], ibuprofen, metformin, verapamil. ALLERGIES: ZOFRAN and Z-ANNMARIE. FAMILY HISTORY: Significant for cancer, hypertension, gout. SOCIAL HISTORY: Significant for previous tobacco use. REVIEW OF SYSTEMS: Sixteen-point review of systems otherwise reviewed and is noncontributory. PHYSICAL EXAMINATION: On examination, the patient is approximately 5 foot 1 inches, 190 pounds of endomorphic habitus. HEENT exam is nonfocal. Neck is supple. She has painless passive motion of her left hip. Straight leg raise is negative. Active motion left knee -10 to 95 degrees of flexion. She has a moderate effusion. She is tender about the medial and lateral joint line. Collaterals are stable, Librado is negative, Melani's elicits medial and lateral pain. She does have an antalgic gait pattern. Her distal neurovascular exam appears intact in the left lower extremity. MRI report for 10/15/2020 of the left knee shows a posterior medial and lateral meniscal tears along with medial compartment degenerative changes. IMPRESSION: Internal derangement, left knee with recurrent medial and lateral meniscal tears. RECOMMENDATIONS: I talked to the patient at length regarding her condition and treatment options. She is having persistent pain and mechanical symptoms despite conservative measures. After thorough discussion, she opts to proceed with surgery. We will plan to proceed with left knee arthroscopy with possible partial medial and lateral meniscectomy. Risks and benefits were discussed at length in layman's terms. We will likely perform that as an outpatient procedure. MMODL / IJN: [id number] /
[2020-12-03] MEDS ORDERED: LACTATED RINGERS 1,000 ML IV SCH (07:56)
[2020-12-03] MEDS ORDERED: SCOPOLAMINE 1.5MG/72HR PATCH TRANSDERM ONE (07:56)
[2020-12-03] MEDS ORDERED: MIDAZOLAM 2 MG/2 ML VIAL IV PRN (07:56)
[2020-12-03] MEDS ORDERED: DEXAMETHASONE SOD PHOSPHATE 4 MG/ML 1 ML VIAL IV ONE (07:56)
[2020-12-03 08:17] VITALS: TEMP 98.4
[2020-12-03] MEDS ORDERED: LIDOCAINE 1% (10MG/ML) FOR IV START INTRADERMA ONE (08:35)
[2020-12-03 08:41] LABS: Glucose,Whole Blood 111 mg/dL (75-99)
[2020-12-03] MEDS ORDERED: fentaNYL (PF) 50 MCG/ML 2 ML AMP ONE (09:18)
[2020-12-03] MEDS ORDERED: LIDOCAINE 1% INJ 10MG/ML (20 ML MDV) ONE (09:18)
[2020-12-03] MEDS ORDERED: SUCCINYLCHOLINE CHLORIDE 100 MG/5 ML SYR IV ONE (09:18)
[2020-12-03] MEDS ORDERED: MIDAZOLAM 2 MG/2 ML VIAL ONE (09:18)
[2020-12-03] MEDS ORDERED: PROPOFOL 10 MG/ML 20 ML VIAL IV ONE (09:18)
[2020-12-03] MEDS ORDERED: LACTATED RINGERS 1,000 ML IV ONE (10:00)
--- NOTE | 2020-12-03 10:07 | P.OP ---
Date of Procedure: 12/03/20 Preoperative Diagnosis: Left knee internal derangement Postoperative Diagnosis: Left knee posterior medial and posterior lateral meniscal tears Procedure(s) Performed: Left knee arthroscopic partial medial and lateral meniscectomies Anesthesia: VIANNEY Surgeon: Osvaldo Nye Estimated Blood Loss (ml): 10 Pathology: none sent Condition: stable Disposition: PACU Indications for Procedure: The patient's a 50-year-old female who presents after a recent injury with significant pain and mechanical symptoms in her left knee. She tried conservative measures with persistence of her symptoms. Her MRI showed recurrent tears of the medial and lateral menisci. A discussion of the risks and benefits of operative intervention versus continued conservative measures was made with patient. She opted to proceed with surgery. Operative risks to include infection, neurovascular injury, development of blood clots, possible incomplete resolution of symptoms, possible worsening symptoms and need for subsequent procedures was discussed. Informed consent was obtained. Operative Findings: As below Description of Procedure: The patient was brought to the operating room, and after induction of general anesthesia examined the left knee. Collaterals were stable, Librado was negative, and posterior drawer was negative. The left lower extremity was prepped and draped in a normal fashion. A superior lateral portal was made thr ough a 3 mm skin incision superior and lateral to the patella. This was used for outflow. A lateral portal was made through a 5 mm vertical skin incision lateral to the patella tendon above the joint line. Diagnostic arthroscopy was performed. On inspection of the medial compartment, a horizontal tear involving the posterior horn of the medial meniscus in the white-white junction was noted.. This was debrided back to stable base with straight baskets and a motorized shaver. Grade 2 chondral changes was noted diffusely involving the distal medial femoral condyle. On inspection of the notch, the anterior cruciate ligament appeared to be intact. On inspection of the lateral compartment, a horizontal tear involving the posterior lateral meniscus in the white-white junction was noted. This was debrided back to stable base with straight baskets and a motorized shaver. On inspection of the patellofemoral articulation no significant chondral defects or pathology was noted.. The g utters were clear debris. The knee was then thoroughly irrigated. The portals were closed with Steri-Strips. A sterile dressing was applied in addition to a compression stocking. The patient was awoken from general anesthesia and transferred to recovery room in good condition. Blood loss was estimated at 10 mL. No complications were incurred.
[2020-12-03] MEDS: HYDROmorphone 0.5 MG/0.5 ML SYRINGE IVP PRN ×2 (10:53→11:22)
[2020-12-03] MEDS ORDERED: KETOROLAC 15 MG/ML 1 ML VIAL IVP ONE (10:55)
[2020-12-03] MEDS ORDERED: HYDROcodone/APAP 10-325MG 1 EACH TAB ONE (11:53)
[2020-12-03] MEDS ORDERED: HYDROcodone/APAP 10-325MG 1 EACH TAB PO ONE (11:58)
[2020-12-03] MEDS ORDERED: HYDROmorphone 0.5 MG/0.5 ML SYRINGE IVP ONE (12:37)
[2020-12-03 13:12] VITALS: BP 104/70; PULSE 88; RESP 16
== END 2020-12-03 13:20 | disposition home or self-care (01) ==
LOC: OR 07:48
PROVIDERS: ATTEND Orthopaedic Surgery
DX: S83.242A Other tear of medial meniscus, current injury, left knee, initial encounter (principal); S83.282A Other tear of lateral meniscus, current injury, left knee, initial encounter; J45.909 Unspecified asthma, uncomplicated; E11.9 Type 2 diabetes mellitus without complications; K21.9 Gastro-esophageal reflux disease without esophagitis; E78.00 Pure hypercholesterolemia, unspecified; I10 Essential (primary) hypertension; G40.909 Epilepsy, unspecified, not intractable, without status epilepticus; G43.909 Migraine, unspecified, not intractable, without status migrainosus; Z79.899 Other long term (current) drug therapy; Z79.84 Long term (current) use of oral hypoglycemic drugs; G47.33 Obstructive sleep apnea (adult) (pediatric); Z88.8 Allergy status to other drugs, medicaments and biological substances; E78.5 Hyperlipidemia, unspecified; Z79.82 Long term (current) use of aspirin
CPT/HCPCS: 29880; J2250; J1100; J0690; J2001; J3010; J1885; J0330; J2704; J1170; J1790

== ENCOUNTER 2021-04-29 17:48 | Emergency (ER) | payer OTHER ==
[2021-04-29] MEDS ORDERED: MORPHINE SULFATE 2 MG/ML SYRINGE IVP STA (21:06)
[2021-04-29] MEDS ORDERED: SODIUM CHLORIDE 0.9% 500 ML 500 ML IV STA (21:06)
[2021-04-29] MEDS ORDERED: diphenhydrAMINE 50 MG/ML 1 ML VIAL IVP STA (21:06)
--- NOTE | 2021-04-29 21:10 | ED ---
General Adult HPI - General Chief complaint: Chest Pain Stated complaint: Chest pain, possible covid Time Seen by Provider: 04/29/21 20:58 Source: patient, family, RN notes reviewed Mode of arrival: wheelchair Limitations: no limitations - History of Present Illness Initial comments: Well-appearing 51-year-old female presents to the emergency room with family member complaining of chest pain for 4 days. Patient states that she feels a heavy pressure in her chest. She states it makes her feel short of breath. She describes the pain as 8 out of 10. She states that she was recently at a constitution party 2 weeks ago and there was someone at the constitution party that was covid positive. She has not been vaccinated. She states many family members are being hospitalized this week with Covid. She states that she has had some nausea and diarrhea but denies any fevers. Family member at bedside states that they have been lifting heavy boxes and moving for the past 3 days and believes is musculoskeletal pain. She has a history of asthma, diabetes, CVA, hypertension, seizure disorder and DVTs. -: days(s) (4) Location: chest Radiation: non-radiation Severity scale (1-10): 8 Quality: other (pressure) Consistency: constant Improves with: none Worsens with: none Associated Symptoms: shortness of breath Treatments Prior to Arrival: none - Related Data Home Medications Medication Instructions Recorded Confirmed Docusate Sodium [Dulcolax Stool 100 mg PO DAILY 03/03/14 12/03/20 Softener] Omeprazole [PriLOSEC] 20 mg PO BID 04/03/14 12/03/20 Azelastine HCl [Optivar 0.05% 1 drop BOTH EYES BID 06/12/16 12/03/20 Ophth Soln] OXcarbazepine [Oxtellar Xr] 900 mg PO QAM 06/12/16 12/03/20 Prochlorperazine [Compazine] 10 mg PO TID PRN 06/12/16 12/03/20 Verapamil HCl [Verapamil ER] 120 mg PO QAM 06/12/16 12/03/20 Gabapentin 600 mg PO TID 06/07/18 12/03/20 metFORMIN HCL [metFORMIN HCL ER] 500 mg PO BID 06/07/18 12/03/20 HYDROcodone/APAP 10-325MG [[place] 1 tab PO TID 09/19/18 12/03/20 10-325] Lidocaine 2% Gel [Xylocaine Jelly 1 applic TOPICAL BID PRN 02/20/19 12/03/20 2%] Albuterol Nebulized [Ventolin 2.5 mg INHALATION RT-TID PRN 04/07/19 12/03/20 Nebulized] Citalopram Hydrobromide [CeleXA] 20 mg PO QAM 04/07/19 12/03/20 Oxybutynin ER [Ditropan Xl] 15 mg PO DAILY 04/07/19 12/03/20 Losartan [Cozaar] 50 mg PO QAM 04/21/19 12/03/20 Atorvastatin [Lipitor] 40 mg PO DAILY 01/06/20 12/03/20 Albuterol Sulfate [Ventolin HFA] 2 puff INHALATION RT-QID PRN 03/01/20 12/03/20 Loratadine 10 mg PO DAILY 03/01/20 12/03/20 Aspirin [Adult Low Dose Aspirin EC] 81 mg PO DAILY 12/02/20 12/03/20 Cetirizine HCl [Zyrtec] 10 mg PO DAILY 12/02/20 12/03/20 Previous Rx's Medication Instructions Recorded Ibuprofen [Motrin] 600 mg PO Q8HR PRN #30 tab 04/29/21 Allergies Allergy/AdvReac Type Severity Reaction Status Date / Time azithromycin Allergy Swelling Verified 04/29/21 19:02 [From Zithromax Z-Brayden] ondansetron HCl Allergy Vomiting Verified 04/29/21 19:02 [From Zofran (as hydrochloride)] onion Allergy Swelling Verified 04/29/21 19:02 Review of Systems ROS Statement: Those systems with pertinent positive or pertinent negative responses have been documented in the HPI. ROS Other: All systems not noted in ROS Statement are negative. Past Medical History Past Medical History: Asthma, CVA/TIA, Diabetes Mellitus, Deep Vein Thrombosis (DVT), GERD/Reflux, Hyperlipidemia, Hypertension, Musculoskeletal Disorder, Osteoarthritis (OA), Seizure Disorder, Sleep Apnea/CPAP/BIPAP Additional Past Medical History / Comment(s): CHRONIC BACK PAIN , DDD, OCCASIONAL SCIATICA, HX OF SHATTERED TAILBONE, CHRONIC CERVICAL PAIN WITH SPURS , grand mal seizure with comprehension issues/loss of memory ever since (2017), "black outs" -no known cause,diverticulitis/colitis, constipation, overactive bladder, kidney stones., LAST SEIZURE May 2019, 03/2019- TIA. , WEARS BACK BRACE, shingles, on Rx for UTI, starting topical for vaginal yeast infection, stroke october 2019 History of Any Multi-Drug Resistant Organisms: MRSA Date of last positivie culture/infection: 07/12/19 MDRO Source:: belly button Past Surgical History: Appendectomy, Bowel Resection, Cholecystectomy, Heart Catheterization, Hysterectomy, Orthopedic Surgery, Tubal Ligation, Uterine Ablation Additional Past Surgical History / Comment(s): Bowel resection for colitis/diverticulitis, EGDs, colonoscopies, loop recorder now removed, multiple pain clinic procedures, bilateral rotator cuff surgery, R hand ganglion cyst removed 3 times, tilt table test, MRI with anesthesia d/t claustrophobia., BREE BICEP SURGERY Past Anesthesia/Blood Transfusion Reactions: Motion Sickness Type of Cardiac Device: Loop Device Placement Date:: MAR 2009 AND 2013 Past Psychological History: Anxiety Smoking Status: Former smoker Past Alcohol Use History: None Reported Past Drug Use History: None Reported - Past Family History Mother Family Medical History: Cancer Additional Family Medical History / Comment(s): Uterine cancer. Father Family Medical History: Cancer Additional Family Medical History / Comment(s): Left lung cancer. General Exam Limitations: no limitations General appearance: alert, in no apparent distress Head exam: Present: atraumatic, normocephalic, normal inspection Eye exam: Present: normal appearance, PERRL, EOMI. Absent: scleral icterus, conjunctival injection, periorbital swelling ENT exam: Present: normal exam, normal oropharynx, mucous membranes moist Neck exam: Present: normal inspection, full ROM, thyromegaly. Absent: tendernes s, meningismus, lymphadenopathy Respiratory exam: Present: normal lung sounds bilaterally. Absent: respiratory distress, wheezes, rales, rhonchi, stridor Cardiovascular Exam: Present: regular rate, normal rhythm, normal heart sounds. Absent: systolic murmur, diastolic murmur, rubs, gallop, clicks GI/Abdominal exam: Present: soft, normal bowel sounds. Absent: distended, tenderness, guarding, rebound, rigid Extremities exam: Present: normal inspection, full ROM, normal capillary refill. Absent: tenderness, pedal edema, joint swelling, calf tenderness Back exam: Absent: tenderness, CVA tenderness (R), CVA tenderness (L) Neurological exam: Present: alert, oriented X3 Psychiatric exam: Present: normal affect, normal mood Skin exam: Present: warm, dry, intact, normal color. Absent: rash, cyanosis, diaphoretic Course Vital Signs 04/29/21 04/29/21 04/29/21 19:02 21:40 22:04 Temperature 98.0 F Pulse Rate 95 78 71 Respiratory 18 16 20 Rate Blood Pressure 145/89 134/87 141/89 O2 Sat by Pulse 99 98 99 Oximetry 04/29/21 04/29/21 23:00 23:55 Temperature Pulse Rate 67 Respiratory 20 Rate Blood Pressure 125/82 O2 Sat by Pulse 98 99 Oximetry - Reevaluation(s) Reevaluation #1: 04/29/21 21:49 Patient's family member concerned about taking the monoclonal antibodies without having a positive Covid test. They're requesting to get the Covid swab and if positive will do the monoclonal antibody infusion. I did explain to them that with her medical history she would benefit from infusion after exposure. Patient has not been vaccinated against coronavirus. They were given the fact sheet to review. Family states they've would prefer to have a positive Covid test before taking the infusion. Time: 21:49 EKG Findings - EKG Results: EKG: sinus rhythm (Ventricular rate of 99, ID interval 0.134, QRS of 0.70, QTC 0.485) Medical Decision Making - Medical Decision Making 51-year-old female comes in with complaints of chest pain for 3 days. Significant other at bedside states that they have been heavy lifting for past 3 days and he believes that this is musculoskeletal pain. Troponin is negative at 0.012 EKG shows normal sinus rhythm. Her urinalysis is clear there is no ketones noted. Electrolytes are unremarkable is no evidence of leukocytosis. D-dimer is negative at 0.44. Chest x-ray shows no acute cardiopulmonary process. Coronavirus test is negative. She was exposed to coronavirus 3 weeks ago and many of her family members have been sick and diagnosed this week. She was offered monoclonal antibodies and declined at this time. This is likely musculoskeletal chest pain. She was given morphine and Toradol in the emergency room and directed to return to the emergency room with any new or worsening symptoms. Patient was agreeable to this plan. I did discuss this case with Dr. Sosa. - Lab Data Result diagrams: 04/29/21 21:25 04/29/21 21:25 Lab Results 04/29/21 04/29/21 04/29/21 Range/Units 21:25 21:25 21:25 WBC 9.6 (3.8-10.6) k/uL RBC 4.41 (3.80-5.40) m/uL Hgb 13.9 (11.4-16.0) gm/dL Hct 41.0 (34.0-46.0) % MCV 93.1 (80.0-100.0) fL MCH 31.5 (25.0-35.0) pg MCHC 33.8 (31.0-37.0) g/dL RDW 13.0 (11.5-15.5) % Plt Count 283 (150-450) k/uL MPV 7.2 Neutrophils % 63 % Lymphocytes % 26 % Monocytes % 5 % Eosinophils % 4 % Basophils % 1 % Neutrophils # 6.1 (1.3-7.7) k/uL Lymphocytes # 2.5 (1.0-4.8) k/uL Monocytes # 0.5 (0-1.0) k/uL Eosinophils # 0.3 (0-0.7) k/uL Basophils # 0.1 (0-0.2) k/uL PT 10.6 (9.0-12.0) sec INR 1.0 (<1.2) APTT 25.6 (22.0-30.0) sec D-Dimer 0.44 (<0.60) mg/L FEU Sodium 137 (137-145) mmol/L Potassium 4.3 (3.5-5.1) mmol/L Chloride 100 (98-107) mmol/L Carbon Dioxide 28 (22-30) mmol/L Anion Gap 9 mmol/L BUN 5 L (7-17) mg/dL Creatinine 0.59 (0.52-1.04) mg/dL Est GFR (CKD-EPI)AfAm >90 (>60 ml/min/1.73 sqM) Est GFR (CKD-EPI)NonAf >90 (>60 ml/min/1.73 sqM) Glucose 103 H (74-99) mg/dL Calcium 9.4 (8.4-10.2) mg/dL Magnesium 2.1 (1.6-2.3) mg/dL Total Bilirubin 0.2 (0.2-1.3) mg/dL AST 22 (14-36) U/L ALT 32 (4-34) U/L Alkaline Phosphatase 85 (38-126) U/L Troponin I (0.000-0.034) ng/mL Total Protein 8.0 (6.3-8.2) g/dL Albumin 4.4 (3.5-5.0) g/dL Urine Color Urine Appearance (Clear) Urine pH (5.0-8.0) Ur Specific [place] (1.001-1.035) Urine Protein (Negative) Urine Glucose (UA) (Negative) Urine Ketones (Negative) Urine Blood (Negative) Urine Nitrite (Negative) Urine Bilirubin (Negative) Urine Urobilinogen (<2.0) mg/dL Ur Leukocyte Esterase (Negative) Coronavirus (PCR) (Not Detectd) 04/29/21 04/29/21 04/29/21 Range/Units 21:25 22:04 22:04 WBC (3.8-10.6) k/uL RBC (3.80-5.40) m/uL Hgb (11.4-16.0) gm/dL Hct (34.0-46.0) % MCV (80.0-100.0) fL MCH (25.0-35.0) pg MCHC (31.0-37.0) g/dL RDW (11.5-15.5) % Plt Count (150-450) k/uL MPV Neutrophils % % Lymphocytes % % Monocytes % % Eosinophils % % Basophils % % Neutrophils # (1.3-7.7) k/uL Lymphocytes # (1.0-4.8) k/uL Monocytes # (0-1.0) k/uL Eosinophils # (0-0.7) k/uL Basophils # (0-0.2) k/uL PT (9.0-12.0) sec INR (<1.2) APTT (22.0-30.0) sec D-Dimer (<0.60) mg/L FEU Sodium (137-145) mmol/L Potassium (3.5-5.1) mmol/L Chloride (98-107) mmol/L Carbon Dioxide (22-30) mmol/L Anion Gap mmol/L BUN (7-17) mg/dL Creatinine (0.52-1.04) mg/dL Est GFR (CKD-EPI)AfAm (>60 ml/min/1.73 sqM) Est GFR (CKD-EPI)NonAf (>60 ml/min/1.73 sqM) Glucose (74-99) mg/dL Calcium (8.4-10.2) mg/dL Magnesium (1.6-2.3) mg/dL Total Bilirubin (0.2-1.3) mg/dL AST (14-36) U/L ALT (4-34) U/L Alkaline Phosphatase (38-126) U/L Troponin I <0.012 (0.000-0.034) ng/mL Total Protein (6.3-8.2) g/dL Albumin (3.5-5.0) g/dL Urine Color Light Yellow Urine Appearance Clear (Clear) Urine pH 7.5 (5.0-8.0) Ur Specific [place] 1.008 (1.001-1.035) Urine Protein Negative (Negative) Urine Glucose (UA) Negative (Negative) Urine Ketones Negative (Negative) Urine Blood Negative (Negative) Urine Nitrite Negative (Negative) Urine Bilirubin Negative (Negative) Urine Urobilinogen <2.0 (<2.0) mg/dL Ur Leukocyte Esterase Negative (Negative) Coronavirus (PCR) Not Detected (Not Detectd) Disposition Clinical Impression: Musculoskeletal chest pain Disposition: HOME SELF-CARE Condition: Good Instructions (If sedation given, give patient instructions): Chest Pain (ED) Additional Instructions: Take Motrin 600 mg every 8 hours for pain. Increase your fluid intake to 6 glasses of water a day. Return to the emergency room with any new or concerning symptoms. Follow-up with your primary care doctor on Sunday. Prescriptions: Ibuprofen [Motrin] 600 mg PO Q8HR PRN #30 tab PRN Reason: Pain Is patient prescribed a controlled substance at d/c from ED?: No Referrals: Connor King Jr, [Primary Care Provider] - 1-2 days Time of Disposition: 23:11
[2021-04-29 21:52] LABS: Basophils # (A) 0.1 k/uL (0-0.2); Basophils % (A) 1 %; Eosinophils # (A) 0.3 k/uL (0-0.7); Eosinophils % (A) 4 %; HGB 13.9 gm/dL (11.4-16.0); Lymphocytes # (A) 2.5 k/uL (1.0-4.8); Lymphocytes % (A) 26 %; MCH 31.5 pg (25.0-35.0); MCHC 33.8 g/dL (31.0-37.0); MCV 93.1 fL (80.0-100.0); Mean Platelet Volume 7.2; Monocytes # (A) 0.5 k/uL (0-1.0); Monocytes % (A) 5 %; Neutrophils # (A) 6.1 k/uL (1.3-7.7); Neutrophils % (A) 63 %; Platelet Count 283 k/uL (150-450); RBC 4.41 m/uL (3.80-5.40); WBC 9.6 k/uL (3.8-10.6)
[2021-04-29 22:02] LABS: ALT 32 U/L (4-34); AST 22 U/L (14-36); African American GFR (CKD) >90 (>60 ml/min/1.73 sqM); Albumin 4.4 g/dL (3.5-5.0); Alkaline Phosphatase 85 U/L (38-126); Anion Gap 9 mmol/L; Blood Urea Nitrogen 5 mg/dL (7-17); Calcium 9.4 mg/dL (8.4-10.2); Carbon Dioxide 28 mmol/L (22-30); Chloride 100 mmol/L (98-107); Glucose 103 mg/dL (74-99); Magnesium 2.1 mg/dL (1.6-2.3); Non-African American GFR(CKD) >90 (>60 ml/min/1.73 sqM); Potassium 4.3 mmol/L (3.5-5.1); Sodium 137 mmol/L (137-145); Total Bilirubin 0.2 mg/dL (0.2-1.3)
--- NOTE | 2021-04-29 22:07 | XR ---
EXAMINATION TYPE: XR chest 2V DATE OF EXAM: 04/29/2021 COMPARISON: 04/23/2020 HISTORY: Chest pain TECHNIQUE: FINDINGS: Heart and mediastinum are normal. Lungs are clear. Diaphragm is normal. Bony thorax appears normal. IMPRESSION: Normal chest. No change.
[2021-04-29 22:09] VITALS: RESP 20
[2021-04-29 22:20] LABS: Partial Thromboplastin Time 25.6 sec (22.0-30.0); Prothrombin Time 10.6 sec (9.0-12.0)
[2021-04-29 22:50] LABS: Appearance,Urine Clear (Clear); Bilirubin,Urine Negative (Negative); Blood,Urine Negative (Negative); Color,Urine Light Yellow; Glucose,Urine (UA) Negative (Negative); Ketones,Urine Negative (Negative); Leukocyte Esterase,Urine Negative (Negative); Nitrite,Urine Negative (Negative); PH, Urine 7.5 (5.0-8.0); Protein,Urine Negative (Negative); Specific Gravity,Urine 1.008 (1.001-1.035); Urobilinogen,Urine <2.0 mg/dL (<2.0)
[2021-04-29] MEDS ORDERED: KETOROLAC 15 MG/ML 1 ML VIAL IVP STA (22:53)
[2021-04-30 00:01] VITALS: BP 125/82; PULSE 67
[2021-04-30 00:59] VITALS: TEMP 98.3
== END 2021-04-30 00:20 | disposition home or self-care (01) ==
LOC: EC 17:48
DX: R07.89 Other chest pain (principal); E11.9 Type 2 diabetes mellitus without complications; E78.5 Hyperlipidemia, unspecified; I10 Essential (primary) hypertension; J45.909 Unspecified asthma, uncomplicated; K21.9 Gastro-esophageal reflux disease without esophagitis; Z79.84 Long term (current) use of oral hypoglycemic drugs; Z20.822 Contact with and (suspected) exposure to COVID-19; Z87.891 Personal history of nicotine dependence; Z88.8 Allergy status to other drugs, medicaments and biological substances; Z91.018 Allergy to other foods; Z79.899 Other long term (current) drug therapy
CPT/HCPCS: 36415; 93005; 85379; 80053; 83735; 84484; 85025; 85610; 85730; 81003; 87635; 71046; 99285; 96374; 96375; 96361; J1200; J2270; J1885; 96365

== ENCOUNTER → 2021-06-07 | Outpatient (CLI) | payer OTHER ==
--- NOTE | 2021-06-07 16:59 | US ---
EXAMINATION TYPE: US groin RT DATE OF EXAM: 06/07/2021 COMPARISON: NONE CLINICAL HISTORY: 51-year-old female R19.09 Other intra-abdominal and pelvic swelling,. Right groin l ump and pain for 8-12 months; patient states are has enlarged and become more painful. TECHNIQUE: Multiple sonographic images of the right groin at the site of palpable abnormality. FINDINGS: Accounts Payable Bookkeeper notes: Two areas measured in the right groin at the area of lump and pain per patient. [employer] th areas adjacent to each other: First area measuring 1.2 x 0.7 x 0.6 cm, second area measuring 3.1 x 2.2 cm. Left groin scanned for comparison; no definite abnormalities seen. The findings have the appearance of enlarged lymph nodes. IMPRESSION: Enlarged lymph nodes in the right inguinal region measuring up to 3.1 cm may be reactive/post inflamm atory. Correlate for any upstream infection. If suspicious clinical features or high suspicion for a neoplastic process, tissue sampling can be considered. Otherwise, clinical and ultrasound follow-up t o ensure gradual involution.
== END | disposition home or self-care (01) ==
LOC: RADUSWWP 14:03
PROVIDERS: ATTEND Family Medicine
DX: R59.9 Enlarged lymph nodes, unspecified (principal); R19.09 Other intra-abdominal and pelvic swelling, mass and lump

== ENCOUNTER → 2021-08-11 | Outpatient (CLI) | payer OTHER ==
--- NOTE | 2021-08-11 09:14 | US ---
EXAMINATION TYPE: US abdomen complete DATE OF EXAM: 08/11/2021 COMPARISON: NONE CLINICAL HISTORY: 51-year-old female R10.10 UPPER ABD PAIN. RUQ pain for the past 2-3 months, HTN, DM , cholecystectomy, and colectomy TECHNIQUE: Multiple sonographic images of the abdomen are obtained. FINDINGS: EXAM MEASUREMENTS: Liver Length: 17.5 cm Gallbladder: Surgically absent CBD: 0.6 cm Spleen: 9.8 x 4.6 cm Right Kidney: 11.0 x 6.0 x 4.1 cm Left Kidney: 11.2 x 6.0 x 6.1 cm Limited by large body habitus. Pancreas: wnl Liver: Increased attenuation. Borderline enlarged. No definite focal lesion seen. Gallbladder: Surgically absent Evidence for sonographic White's sign: No CBD: Upper limits of normal in caliber. Spleen: wnl Right Kidney: No hydronephrosis or masses seen Left Kidney: No hydronephrosis or masses seen Upper IVC: wnl Abd Aorta: wnl . IMPRESSION: 1. Borderline hepatomegaly (17.5 cm) with at least moderate hepatic steatosis. 2. No gallstones. Bile duct upper limits of normal in caliber at 6 mm, probably chronic for the patie nt. Correlate with alkaline phosphatase and bilirubin levels.
== END | disposition home or self-care (01) ==
LOC: RADUSWWP 08:04
PROVIDERS: ATTEND Family Medicine
DX: R10.10 Upper abdominal pain, unspecified (principal)
CPT/HCPCS: 76700

== ENCOUNTER 2021-09-02 06:38 | Day surgery (SDC) | payer OTHER ==
--- NOTE | 2021-08-31 11:04 | HP ---
HISTORY AND PHYSICAL CHIEF COMPLAINT: Right shoulder pain. HISTORY OF PRESENT ILLNESS: The patient is a 51-year-old [id number] female on permanent disability who presents with progressive right shoulder pain for the past 3 months. She is having pain with any attempted overhead use and at night. She notes it is progressing. She does not recall any recent injury; however, she has a history of arthroscopic rotator cuff repair in 2016. PAST MEDICAL HISTORY: Significant for asthma, type 2 diabetes, gastroesophageal reflux disease, seizure disorder, DVT, hypertension and migraines. PAST SURGICAL HISTORY: Significant for bilateral shoulder surgery in addition to left knee arthroscopy. She had colostomy in the past. FAMILY HISTORY: Significant for diabetes, cancer and heart disease. SOCIAL HISTORY: Significant for previous tobacco use. REVIEW OF SYSTEMS: Sixteen-point review of systems otherwise reviewed and is noncontributory. PHYSICAL EXAMINATION: On examination, the patient is approximately 5 feet 1 inch, 192 pounds of endomorphic habitus. HEENT exam is nonfocal. Neck is supple. On examination of the right shoulder, she is tender about the anterior subacromial space. She has moderate crepitus. Active range of motion: Forward elevation 135 degrees, external rotation with arm at side 55 degrees, internal rotation to L3. Motor strength 4+/ 5 for external rotation with arm at side, 5-/5 for abduction. Impingement test and Neer test are positive. Her distal neurovascular exam appears intact in the right upper extremity. MRI report right shoulder shows evidence of a tear involving the supraspinatus with some retraction. IMPRESSION: 1. Right rotator cuff re-tear, symptomatic. 2. History of seizures. RECOMMENDATIONS: I talked to the patient at length regarding her condition along with treatment options. At this point she notes she is quite symptomatic despite previous conservative measures. After thorough discussion, she opts to proceed with surgery. We will plan to proceed with arthroscopic evaluations, possible rotator cuff repair versus debridement. Likely we will perform that as an outpatient procedure. Risks and benefits were discussed at length in layman's terms. MMODL / IJN: [id number] /
[2021-08-31 14:44] VITALS: BMI 34.9
[~2021-09-02 06:38] MED LIST changes: -EPINEPHrine (PF) 1 ML in SODIUM CHLORIDE 0.9% IRRIGATIO 3,000 ML IRRIGATION ONE; -HYDROcodone/APAP 10-325MG 1 EACH TAB ONE; -HYDROcodone/APAP 10-325MG 1 EACH TAB PO ONE; -HYDROmorphone 0.5 MG/0.5 ML SYRINGE IVP ONE; -KETOROLAC 15 MG/ML 1 ML VIAL IVP ONE; -LIDOCAINE 1% (10MG/ML) FOR IV START INTRADERMA ONE; -LIDOCAINE 1% INJ 10MG/ML (20 ML MDV) ONE; -MIDAZOLAM 2 MG/2 ML VIAL ONE; -ONDANSETRON 4 MG/2 ML VIAL IVP ONE; -PROPOFOL 10 MG/ML 20 ML VIAL IV ONE; -SCOPOLAMINE 1.5MG/72HR PATCH TRANSDERM ONE; -SUCCINYLCHOLINE CHLORIDE 100 MG/5 ML SYR IV ONE; -fentaNYL (PF) 50 MCG/ML 2 ML AMP ONE
[2021-09-02 07:29] LABS: Glucose,Whole Blood 123 mg/dL (75-99)
[2021-09-02] MEDS ORDERED: ONDANSETRON 4 MG/2 ML VIAL ONE (07:38)
[2021-09-02] MEDS ORDERED: MIDAZOLAM 2 MG/2 ML VIAL IVP ONE (08:15)
[2021-09-02] MEDS ORDERED: fentaNYL (PF) 50 MCG/ML 2 ML AMP IVP ONE (08:16)
[2021-09-02] MEDS ORDERED: HYDROmorphone (PF) 1 MG/ML ONE (08:23)
[2021-09-02] MEDS ORDERED: LIDOCAINE 1% INJ 10MG/ML (20 ML MDV) ONE (08:23)
[2021-09-02] MEDS ORDERED: SUCCINYLCHOLINE CHLORIDE 100 MG/5 ML SYR IV ONE (08:23)
[2021-09-02] MEDS ORDERED: PROPOFOL 10 MG/ML 20 ML VIAL IV ONE (08:23)
[2021-09-02] MEDS ORDERED: ROPIVACAINE 5 MG/ML 30 ML VIAL ONE (08:23)
[2021-09-02] MEDS ORDERED: PHENYLEPHRINE-0.9% NACL SYG 1,000 MCG/10 ML SYRINGE ONE (08:23)
[2021-09-02] MEDS ORDERED: EPINEPHrine (PF) 1 ML in SODIUM CHLORIDE 0.9% IRRIGATIO 3,000 ML IRRIGATION ONE ×8 (08:28)
[2021-09-02] MEDS ORDERED: LACTATED RINGERS 1,000 ML IV ONE (09:55)
--- NOTE | 2021-09-02 10:01 | P.OP ---
Date of Procedure: 09/02/21 Preoperative Diagnosis: Symptomatic right rotator cuff re-tear Postoperative Diagnosis: 4 cm right rotator cuff tear Procedure(s) Performed: Right shoulder arthroscopic subacromial decompression/rotator cuff repair Implants: Arthrex 4.75 mm swivel lock anchor 2, 5.5 mm swivel lock anchor 2 Anesthesia: VIANNEY, thiago Surgeon: Osvaldo Nye Churn Drill Operator #1: Valdez Osborne Estimated Blood Loss (ml): 10 Pathology: none sent Condition: stable Disposition: PACU Indications for Procedure: The patient's a 51-year-old female presents with progressive right shoulder pain despite conservative measures. She had a previous rotator cuff repair in 2016. MRI showed evidence of a probable re-tear. A discussion the risks and benefits of continued conservative measures versus operative intervention was made with patient. She opted to proceed with surgery. Operative risks to include infection, neurovascular injury, development of blood clots, possible tendon rerupture, possible postoperative stiffness and need for subsequent procedures was discussed. Informed consent was obtained. Operative Findings: As below Description of Procedure: The patient was brought to the operating room, and after induction of general anesthesia was placed in a beachchair position. A preoperative interscalene block was placed for postoperative analgesia. I examined the right shoulder. There was no gross block to passive motion or gross glenohumeral instability. The right upper extremity was prepped and draped in normal fashion. The bony outlines the acromion, distal clavicle, and coracoid process were outlined with a skin marker. The glenohumeral joint was inflated with 50 mL of saline utilizing a spinal needle from posterior approach. A posterior portal was made through a 5 mm skin incision 1 cm medial and inferior to the posterior lateral border time. A blunt trocar was used to easily into the joint. Diagnostic arthroscopy was performed. An anterior portal was made just lateral to the coracoid process entering the joint above the subscapularis tendon. The subscapularis tendon appeared to be intact. Anterior labrum was intact. The inferior recess was inspected. The posterior labrum was intact. The biceps appeared to be previously tenotomized or ruptured. On inspection the rotator cuff, a full-thickness tear involving the supraspinatus and infraspinatus was noted with some retraction. There appear to be some suture material in the greater tuberosity was debrided with a motorized shaver. The arthroscope was placed into the subacromial space. A lateral portal was made 2 centimeters inferior to the anterior lateral border of the acromion. The rotator cuff was then mobilized with a traction suture. This was then easily brought back to the greater tuberosity. The soft tissue on the undersurface of the acromion was debrided with a motorized shaver and electrocautery clearly defining the anterior medial and lateral borders as well as the distal clavicle. An anterior inferior acromioplasty was performed with a motorized vanessa starting anterolateral, then extending this posteriorly, then extending this medially. I converted to a flat acromion and this was verified in the posterior and lateral viewing portals. The greater tuberosity was lightly decorticating with a shaver down to a bleeding bony surface. An accessory superior lateral portal was made just off the lateral edge of the acromion for anchor placement. 2 anchors were then placed just off the articular surface with the appropriate starting awl. 4.75 mm anchors preloaded with #2 fiber tape were placed. Good purchase was obtained. These fiber tapes were then passed the rotator cuff with a scorpion suture passer. A lateral row was created crisscrossing these tapes. 5.5 mm swivel lock anchors ?-2 were placed laterally. Good purchase was obtained. Final arthroscopic view showed adequate compression at the footprint. The arthroscope was then removed. The portals were closed with simple 3-0 nylon sutures. A sterile dressing was applied in addition to a sling. The patient was then awoken from general anesthesia and transferred to recovery room in good condition. Blood loss was estimated at 10 mL. No complications were incurred. Sponge and needle counts were correct in the case. Valdez LOUISE assisted and the major components of the case to include arm positioning, anchor placement, and rotator cuff repair.
[2021-09-02 10:10] VITALS: TEMP 97.5
[2021-09-02 11:14] LABS: Glucose,Whole Blood 123 mg/dL (75-99)
--- NOTE | 2021-09-02 11:35 | P.ANPRN ---
Procedure Note - Anesthesia - Nerve Block Performed Right Interscalene Single Time Out Performed: Yes (815) Date of Procedure: 09/02/21 Procedure Start Time: : Procedure Stop Time: Location of Patient: PreOp Indication: Acute Post-Operative Pain, Requested by Surgeon Specifically requested for management of pain by : Osvaldo Nye Sedation Type: Sedate with meaningful contact maintained Preparation: Sterile Prep Position: Supine Catheter: None Needle Types: Pajunk Needle Gauge: 21 Ultrasound used to visualize needle placement: Yes Ultrasound used to observe medication spread: Yes Injectate: 0.5% Ropivacaine (see comment for volume) (30cc) Blood Aspirated: No Pain Paresthesia on Injection Noted: No Resistance on Injection: Normal Image Stored and Saved: Yes Events: Uneventful and Well Tolerated
[2021-09-02 12:40] VITALS: PULSE 92
[2021-09-02 12:41] VITALS: BP 115/67; RESP 18
== END 2021-09-02 12:45 | disposition home or self-care (01) ==
LOC: OR 06:38
PROVIDERS: ATTEND Orthopaedic Surgery
DX: M75.101 Unspecified rotator cuff tear or rupture of right shoulder, not specified as traumatic (principal); J45.909 Unspecified asthma, uncomplicated; E11.9 Type 2 diabetes mellitus without complications; K21.9 Gastro-esophageal reflux disease without esophagitis; G40.909 Epilepsy, unspecified, not intractable, without status epilepticus; Z86.718 Personal history of other venous thrombosis and embolism; I10 Essential (primary) hypertension; M19.90 Unspecified osteoarthritis, unspecified site; E78.5 Hyperlipidemia, unspecified; G43.909 Migraine, unspecified, not intractable, without status migrainosus; E66.9 Obesity, unspecified; Z68.36 Body mass index [BMI] 36.0-36.9, adult; F32.A Depression, unspecified; E78.00 Pure hypercholesterolemia, unspecified; N32.81 Overactive bladder; Z98.890 Other specified postprocedural states; Z93.3 Colostomy status; Z83.3 Family history of diabetes mellitus; Z82.49 Family history of ischemic heart disease and other diseases of the circulatory system; Z80.9 Family history of malignant neoplasm, unspecified; Z87.891 Personal history of nicotine dependence; Z79.84 Long term (current) use of oral hypoglycemic drugs; Z79.82 Long term (current) use of aspirin; Z79.899 Other long term (current) drug therapy; Z88.1 Allergy status to other antibiotic agents; Z88.8 Allergy status to other drugs, medicaments and biological substances
CPT/HCPCS: 64415; 81025; 76942; 29826; 29827; C1713 ×3; C1894; J2250; J1100; J0690; J2405; J0171; J2001; J3010; J1170; J2795; J2370; J0330; J2704

== ENCOUNTER 2021-10-16 09:12 | Emergency (ER) | payer OTHER ==
[2021-10-16 10:30] LABS: Basophils # (A) 0.1 k/uL (0-0.2); Basophils % (A) 1 %; Eosinophils # (A) 0.2 k/uL (0-0.7); Eosinophils % (A) 3 %; HCT 38.8 % (34.0-46.0); HGB 13.1 gm/dL (11.4-16.0); Lymphocytes % (A) 31 %; MCH 31.7 pg (25.0-35.0); MCHC 33.9 g/dL (31.0-37.0); MCV 93.4 fL (80.0-100.0); Mean Platelet Volume 7.3; Monocytes # (A) 0.4 k/uL (0-1.0); Monocytes % (A) 6 %; Neutrophils # (A) 3.6 k/uL (1.3-7.7); Neutrophils % (A) 57 %; Platelet Count 268 k/uL (150-450); RBC 4.15 m/uL (3.80-5.40); RDW 12.8 % (11.5-15.5); WBC 6.4 k/uL (3.8-10.6)
[2021-10-16 10:32] LABS: Appearance,Urine Clear (Clear); Bilirubin,Urine Negative (Negative); Blood,Urine Negative (Negative); Color,Urine Light Yellow; Glucose,Urine (UA) Negative (Negative); Ketones,Urine Negative (Negative); Leukocyte Esterase,Urine Small (Negative); Nitrite,Urine Negative (Negative); Protein,Urine Negative (Negative); RBC,Urine 2 /hpf (0-5); Specific Gravity,Urine 1.006 (1.001-1.035); Squamous Epithelial Cell,Urine 3 /hpf (0-4); Urobilinogen,Urine <2.0 mg/dL (<2.0); WBC,Urine 1 /hpf (0-5)
[2021-10-16 10:35] LABS: ALT 26 U/L (4-34); AST 31 U/L (14-36); African American GFR (CKD) >90 (>60 ml/min/1.73 sqM); Albumin 4.5 g/dL (3.5-5.0); Alkaline Phosphatase 63 U/L (38-126); Anion Gap 10 mmol/L; Blood Urea Nitrogen 7 mg/dL (7-17); Calcium 9.2 mg/dL (8.4-10.2); Carbon Dioxide 27 mmol/L (22-30); Chloride 101 mmol/L (98-107); Glucose 89 mg/dL (74-99); Non-African American GFR(CKD) >90 (>60 ml/min/1.73 sqM); Sodium 138 mmol/L (137-145); Total Bilirubin 0.5 mg/dL (0.2-1.3); Total Protein 8.1 g/dL (6.3-8.2)
[2021-10-16 10:38] LABS: Potassium 4.4 mmol/L (3.5-5.1)
--- NOTE | 2021-10-16 10:59 | XR ---
EXAMINATION TYPE: XR shoulder complete RT DATE OF EXAM: 10/16/2021 10:37 AM INDICATION: Patient age:Female; 51 years old; Reason for study: fall shoulder pain. COMPARISON: Shoulder radiograph 08/05/2020. TECHNIQUE: The right shoulder was examined in AP, internally rotated and axillary projections. FINDINGS: No evidence of acute osseous pathology, joint dislocation, or soft tissue swelling. The remaining por tions of the visualized chest are unremarkable. Calcification near the insertion of the supraspinous tendon. IMPRESSION: 1. No acute osseous pathology. 2. Calcifications at the origins of the supraspinatus tendon which could could represent calcific te ndinopathy.
--- NOTE | 2021-10-16 11:06 | XR ---
EXAMINATION TYPE: XR KUB DATE OF EXAM: 10/16/2021 10:37 AM INDICATION: Patient age:Female; 51 years old; Reason for study: fall belly pain ; COMPARISON: None. TECHNIQUE: One radiographic view of the abdomen was obtained. FINDINGS: The bowel gas pattern is nonspecific without dilated loops of small or large bowel. There i s no evidence for organomegaly or pneumoperitoneum. The osseous structures are intact. No abnormal calcifications are present. Fecal material and gas are demonstrated throughout the colon and rectum. Post cystectomy clips. IMPRESSION: Nonspecific bowel gas pattern without radiographic evidence for acute process.
[2021-10-16] MEDS ORDERED: ONDANSETRON 4 MG/2 ML VIAL IVP STA (11:27)
[2021-10-16] MEDS ORDERED: SODIUM CHLORIDE 0.9% 1,000 ML IV STA (11:27)
[2021-10-16] MEDS ORDERED: MORPHINE SULFATE 4 MG/ML SYRINGE IVP STA ×2 (11:27→13:54)
--- NOTE | 2021-10-16 12:18 | CT ---
EXAMINATION TYPE: CT brain wo con, CT facial bones wo con CT DLP: 1004.2 (accession [id number]), Inc. in brain (accession [id number]) mGycm, Automated exposure con trol for dose reduction was used. DATE OF EXAM: 10/16/2021 12:04 PM COMPARISON: Prior CT Brain from 04/07/2019. CLINICAL INDICATION:Female, 51 years old with history of blunt trauma, Fall, hit left brow (accession [id number]), Fall (accession [id number]) TECHNIQUE: Brain: Multiple axial CT images of the brain were obtained without IV contrast. Facial: Multiple unenhanced axial CT images were obtained of the facial bones soft tissue and bone wi ndows. Coronal, axial and sagittal reformatted images were also provided in soft tissue and bone win dows and submitted for interpretation. FINDINGS: Brain: Extra-axial spaces: No abnormal extra-axial fluid collections. Ventricular system: Within normal limits Cerebral parenchyma: No acute intraparenchymal hemorrhage or mass effect. The suresh-white junction is well differentiated. Cerebellum: Unremarkable. Mass effect: No evidence of midline shift. Intracranial vasculature: unremarkable Soft tissues: Normal. Calvarium/osseous structures: No depressed skull fracture. Paranasal sinuses and mastoid air cells: Mild scattered paranasal sinus disease. Visualized orbits: Orbital contents are intact. Facial: There is no evidence of fracture, subluxation, dislocation. There is a mild amount of fat stranding/e luiz around the left periorbital ridge. The orbital contents are unremarkable.The temporal-mandibular joints appear symmetric. The visualized portion of the paranasal sinuses demonstrate mild scattered paranasal sinus disease. IMPRESSION: 1. No acute intracranial process. 2. Mild soft tissue edema around the left orbital ridge without evidence of fracture.
[2021-10-16 12:33] VITALS: BP 120/82; PULSE 71; RESP 16; TEMP 97.2
--- NOTE | 2021-10-16 12:49 | CT ---
EXAMINATION TYPE: CT abdomen pelvis w con CT DLP: 1463. mGycm, Automated exposure control for dose reduction was used. DATE OF EXAM: 10/16/2021 12:18 PM COMPARISON: CT abdomen pelvis most recent from 07/21/2019. CLINICAL INDICATION:Female, 51 years old with history of abdominal pain, acute, nonlocalized; TECHNIQUE: Standard CT of the abdomen and pelvis following the administration of 100 cc of Isovue 3 00 IV contrast material. Coronal and sagittal reformats were performed. FINDINGS: LOWER CHEST: Unchanged left lower lobe 8 mm pulmonary nodule back to 2019. ABDOMEN LIVER: Diffusely hypoattenuating parenchyma. GALLBLADDER AND BILE DUCTS: The gallbladder is surgically absent. The common bile duct measures up to 10 mm similar back to 2019. PANCREAS: Unremarkable. SPLEEN: Unremarkable. ADRENAL GLANDS: Unremarkable. KIDNEYS AND URETERS: No evidence of hydronephrosis or renal calculus. The ureters are unremarkable. PELVIS BLADDER: Unremarkable REPRODUCTIVE: Unremarkable. ABDOMEN & PELVIS STOMACH AND BOWEL: Is a large stool burden throughout the colon. Postsurgical changes of the sigmoid colon. Scattered clonic diverticula present. No evidence of bowel obstruction. PERITONEUM: No evidence of pneumoperitoneum or free fluid. VASCULATURE: No evidence of aortic aneurysm. MUSCULOSKELETAL: No acute osseous abnormalities. Mild multilevel disc degeneration changes with disc bulging L3-L4 and L4-L5. LYMPH NODES: No gross evidence for lymphadenopathy. SOFT TISSUE/ABDOMINAL WALL: Surgical changes anterior abdominal wall.. IMPRESSION: 1. No evidence for acute abdominal process to explain the patient's pain. 2. Chronic diverticulosis. 3. Hepatic steatosis. 4. Similar dilation of the common bile duct.
--- NOTE | 2021-10-16 13:50 | XR ---
EXAMINATION TYPE: XR clavicle RT DATE OF EXAM: 10/16/2021 1:03 PM INDICATION: Patient age:Female; 51 years old; Reason for study: blunt trauma; COMPARISON: None. TECHNIQUE: AP and cephalic tilt views were obtained of the right clavicle. FINDINGS: No evidence of acute or chronic osseous pathology, joint dislocation or soft tissue swelling. Mild de generation changes of the right acromioclavicular joint. IMPRESSION: No evidence of acute fracture.
--- NOTE | 2021-10-16 13:52 | ED ---
General Adult HPI - General Chief complaint: Fall Stated complaint: fall, arm & abd pain Time Seen by Provider: 10/16/21 11:13 Source: patient, family, RN notes reviewed, old records reviewed Mode of arrival: ambulatory Limitations: no limitations - History of Present Illness Initial comments: Patient is a 51-year-old female with past medical history remarkable for right shoulder rotator cuff surgery, TIAs, diabetes, hypertension, seizure disorder, asthma presents emergency Department after fall out of bed. She is a restless sleeper, and when she went to turn in her bed fell out of bed. She struck her head on the left side on the end table as well as landed on her right shoulder. He is complaining of right shoulder pain, right clavicle pain, as well as a mild headache at the site of her impact with the table above her left eye over the forehead. Does not believe she expenses LOC. Endorses mild abdominal pain at the site of a umbilical hernia but no nausea or vomiting.. Denies any chest pain, shortness of breath. Denies any skin changes. Is still passing gas. No constipation. No other acute complaints at this time. Presents for further evaluation. - Related Data Home Medications Medication Instructions Recorded Confirmed Docusate Sodium [Dulcolax Stool 100 mg PO DAILY 03/03/14 08/31/21 Softener] Omeprazole [PriLOSEC] 20 mg PO BID 04/03/14 08/31/21 Azelastine HCl [Optivar 0.05% 1 drop BOTH EYES BID 06/12/16 08/31/21 Ophth Soln] OXcarbazepine [Oxtellar Xr] 900 mg PO HS 06/12/16 08/31/21 Prochlorperazine [Compazine] 10 mg PO TID PRN 06/12/16 09/02/21 Verapamil HCl [Verapamil ER] 120 mg PO QAM 06/12/16 08/31/21 Gabapentin 600 mg PO TID 06/07/18 08/31/21 metFORMIN HCL [metFORMIN HCL ER] 500 mg PO BID 06/07/18 08/31/21 HYDROcodone/APAP 10-325MG [[place] 1 tab PO TID 09/19/18 08/31/21 10-325] Citalopram Hydrobromide [CeleXA] 40 mg PO QAM 04/07/19 08/31/21 Oxybutynin ER [Ditropan Xl] 15 mg PO QAM 04/07/19 08/31/21 Losartan [Cozaar] 50 mg PO QAM 04/21/19 08/31/21 Atorvastatin [Lipitor] 40 mg PO DAILY 01/06/20 08/31/21 Albuterol Sulfate [Ventolin HFA] 2 puff INHALATION RT-QID PRN 03/01/20 08/31/21 Loratadine 10 mg PO DAILY 03/01/20 09/02/21 Lidocaine 5% Patch [Lidoderm] 1 patch TOPICAL DAILY PRN 08/31/21 09/02/21 Allergies Allergy/AdvReac Type Severity Reaction Status Date / Time azithromycin Allergy Swelling Verified 10/16/21 09:20 [From Zithromax Z-Brayden] ondansetron HCl Allergy Vomiting;ONLY Verified 10/16/21 09:20 [From Zofran (as SUBLINGUAL hydrochloride)] GIVES MIGRANE and vomiting, ABLE T onion Allergy Swelling Verified 10/16/21 09:20 Review of Systems ROS Statement: Those systems with pertinent positive or pertinent negative responses have been documented in the HPI. Review of Systems: CONST: Denies fever EYES: Denies blurry vision ENT: Denies nasal congestion C/V: Denies Chest pain RESP: Denies shortness of breath GI: Endorses abdominal pain : Denies dysuria SKIN: Denies rash. MSK: Endorses joint pain NEURO: Denies headache ROS Other: All systems not noted in ROS Statement are negative. Past Medical History Past Medical History: Asthma, CVA/TIA, Diabetes Mellitus, Deep Vein Thrombosis (DVT), GERD/Reflux, Hyperlipidemia, Hypertension, Musculoskeletal Disorder, Osteoarthritis (OA), Seizure Disorder, Sleep Apnea/CPAP/BIPAP Additional Past Medical History / Comment(s): CHRONIC BACK PAIN , DDD, OCCASIONAL SCIATICA, HX OF SHATTERED TAILBONE, CHRONIC CERVICAL PAIN WITH SPURS , grand mal seizure with comprehension issues/loss of memory ever since (2016), "black outs" -no known cause,diverticulitis/colitis, constipation, overactive bladder, kidney stones., LAST SEIZURE January 2021, 03/2019- TIA. , WEARS BACK BRACE, shingles, UTIs, starting topical for vaginal yeast infection, stroke october 2019, sleep apnea-no home CPAP. palpable enlarged right groin lymph nodes History of Any Multi-Drug Resistant Organisms: MRSA Date of last positivie culture/infection: 07/12/19 MDRO Source:: belly button Past Surgical History: Appendectomy, Bowel Resection, Cholecystectomy, Heart Cat heterization, Hysterectomy, Orthopedic Surgery, Tubal Ligation, Uterine Ablation Additional Past Surgical History / Comment(s): Bowel resection for colitis/diverticulitis, EGDs, colonoscopies, loop recorder now removed, multiple pain clinic procedures, bilateral rotator cuff surgery, R hand ganglion cyst removed 3 times, tilt table test, MRI with anesthesia d/t claustrophobia., Bilateral BICEP SURGERY Past Anesthesia/Blood Transfusion Reactions: Motion Sickness Type of Cardiac Device: Loop Device Placement Date:: MAR 2009 AND 2013 Past Psychological History: Anxiety Smoking Status: Former smoker - Past Family History Mother Family Medical History: Cancer Additional Family Medical History / Comment(s): Uterine cancer, with Covid at age 75. Father Family Medical History: Cancer Additional Family Medical History / Comment(s): Left lung cancer. General Exam - General Exam Comments Initial Comments: General: Appears in no acute distress. HEAD: Normal with no signs of head trauma. Mildly tender to palpation over the left eye on the forehead. No deformities. Negative raccoon eyes, negative Villa sign. No hemotympanum. EYES: PERRLA, EOMI, conjunctiva normal, no discharge. Pupils are 3 mm and equ al bilaterally. ENT: Hearing grossly intact, normal oropharynx. RESPIRATORY: Clear breath sounds bilaterally. No wheezes, rales, or rhonchi. C/V: Regular rate and rhythm. S1 and S2 auscultated, no edema, peripheral pulses 2+ and intact throughout ABD: Abdomen is soft, nondistended, nontender. No obvious mass palpated. No guarding. No rebound tenderness. EXT: Normal range of motion, no obvious deformity. No midline cervical, thoracic, lumbar spine tenderness palpation. Pelvis stable.Tenderness over the right shoulder. Has reduced range of motion at baseline due to recent rotator cuff surgery. Seems to be somewhat below baseline at this time. SKIN: No rashes or lesions observed on exposed skin. NEURO: Alert and oriented 4. Limitations: no limitations Course Vital Signs 10/16/21 10/16/21 09:14 12:32 Temperature 97.0 F L 97.2 F L Pulse Rate 90 71 Respiratory 18 16 Rate Blood Pressure 128/87 120/82 O2 Sat by Pulse 98 97 Oximetry Medical Decision Making - Medical Decision Making Based on the patient's presentation and physical exam, I'm concerned for what appears to be a mechanical fall. However we will obtain CT imaging of the patient's face due to tenderness, as well as brain, abdomen and pelvis. X-rays of the right shoulder and clavicle will be obtained as well. Abdominal x-ray was obtained by triage and revealed no acute findings. Broad labs will be obtained as well. She was in agreement this plan. She'll be given IV analgesia as well as fluids. EKG shows no signs of acute ischemia. Laboratory studies are unremarkable. Imaging of the abdomen as discussed above. Right shoulder x-ray shows no acute process. Medical x-ray shows no acute process. CT of the face shows soft tissue swelling in the left orbital ridge but no acute injury. No intracranial process. Abdomen pelvis CT revealed no signs of acute intra-abdominal process. There is chronic diverticulosis, hepatic suitcases. Reproduced similar dilation of the common bile duct. I discussed the findings with the patient. She expressed understanding. She may have had acute sprain of the right shoulder in the setting of recent rotator cuff surgery. Recommended follow-up with her surgeon, Dr. Woodall and she was in agreement this plan. She has pain medications at home which she will take. She will like to go home at this time and I believe that is reasonable. Strict return precautions were discussed.There was a delay in obtaining x-ray and imaging reads. I instructed the patient to follow up with their PCP in the next 3 days. I explained that the patient should return to the emergency department if they e xperience any worsening symptoms. Strict return precautions were discussed with the patient. The patient expressed understanding of these instructions. I answered all questions that the patient had. The patient was discharged home in fair condition with their prescriptions and follow up information. - Lab Data Result diagrams: 10/16/21 10:17 10/16/21 10:17 Lab Results 10/16/21 10/16/21 10/16/21 Range/Units 10:17 10:17 10:17 WBC 6.4 (3.8-10.6) k/uL RBC 4.15 (3.80-5.40) m/uL Hgb 13.1 (11.4-16.0) gm/dL Hct 38.8 (34.0-46.0) % MCV 93.4 (80.0-100.0) fL MCH 31.7 (25.0-35.0) pg MCHC 33.9 (31.0-37.0) g/dL RDW 12.8 (11.5-15.5) % Plt Count 268 (150-450) k/uL MPV 7.3 Neutrophils % 57 % Lymphocytes % 31 % Monocytes % 6 % Eosinophils % 3 % Basophils % 1 % Neutrophils # 3.6 (1.3-7.7) k/uL Lymphocytes # 2.0 (1.0-4.8) k/uL Monocytes # 0.4 (0-1.0) k/uL Eosinophils # 0.2 (0-0.7) k/uL Basophils # 0.1 (0-0.2) k/uL Sodium 138 (137-145) mmol/L Potassium 4.4 (3.5-5.1) mmol/L Chloride 101 (98-107) mmol/L Carbon Dioxide 27 (22-30) mmol/L Anion Gap 10 mmol/L BUN 7 (7-17) mg/dL Creatinine 0.49 L (0.52-1.04) mg/dL Est GFR (CKD-EPI)AfAm >90 (>60 ml/min/1.73 sqM) Est GFR (CKD-EPI)NonAf >90 (>60 ml/min/1.73 sqM) Glucose 89 (74-99) mg/dL Plasma Lactic Acid Hans (0.7-2.0) mmol/L Calcium 9.2 (8.4-10.2) mg/dL Total Bilirubin 0.5 (0.2-1.3) mg/dL AST 31 (14-36) U/L ALT 26 (4-34) U/L Alkaline Phosphatase 63 (38-126) U/L Total Protein 8.1 (6.3-8.2) g/dL Albumin 4.5 (3.5-5.0) g/dL Urine Color Light Yellow Urine Appearance Clear (Clear) Urine pH 7.0 (5.0-8.0) Ur Specific [place] 1.006 (1.001-1.035) Urine Protein Negative (Negative) Urine Glucose (UA) Negative (Negative) Urine Ketones Negative (Negative) Urine Blood Negative (Negative) Urine Nitrite Negative (Negative) Urine Bilirubin Negative (Negative) Urine Urobilinogen <2.0 (<2.0) mg/dL Ur Leukocyte Esterase Small H (Negative) Urine RBC 2 (0-5) /hpf Urine WBC 1 (0-5) /hpf Ur Squamous Epith Cells 3 (0-4) /hpf 10/16/21 Range/Units 10:17 WBC (3.8-10.6) k/uL RBC (3.80-5.40) m/uL Hgb (11.4-16.0) gm/dL Hct (34.0-46.0) % MCV (80.0-100.0) fL MCH (25.0-35.0) pg MCHC (31.0-37.0) g/dL RDW (11.5-15.5) % Plt Count (150-450) k/uL MPV Neutrophils % % Lymphocytes % % Monocytes % % Eosinophils % % Basophils % % Neutrophils # (1.3-7.7) k/uL Lymphocytes # (1.0-4.8) k/uL Monocytes # (0-1.0) k/uL Eosinophils # (0-0.7) k/uL Basophils # (0-0.2) k/uL Sodium (137-145) mmol/L Potassium (3.5-5.1) mmol/L Chloride (98-107) mmol/L Carbon Dioxide (22-30) mmol/L Anion Gap mmol/L BUN (7-17) mg/dL Creatinine (0.52-1.04) mg/dL Est GFR (CKD-EPI)AfAm (>60 ml/min/1.73 sqM) Est GFR (CKD-EPI)NonAf (>60 ml/min/1.73 sqM) Glucose (74-99) mg/dL Plasma Lactic Acid Hans 1.7 (0.7-2.0) mmol/L Calcium (8.4-10.2) mg/dL Total Bilirubin (0.2-1.3) mg/dL AST (14-36) U/L ALT (4-34) U/L Alkaline Phosphatase (38-126) U/L Total Protein (6.3-8.2) g/dL Albumin (3.5-5.0) g/dL Urine Color Urine Appearance (Clear) Urine pH (5.0-8.0) Ur Specific [place] (1.001-1.035) Urine Protein (Negative) Urine Glucose (UA) (Negative) Urine Ketones (Negative) Urine Blood (Negative) Urine Nitrite (Negative) Urine Bilirubin (Negative) Urine Urobilinogen (<2.0) mg/dL Ur Leukocyte Esterase (Negative) Urine RBC (0-5) /hpf Urine WBC (0-5) /hpf Ur Squamous Epith Cells (0-4) /hpf - EKG Data -: EKG Interpreted by Me EKG Comments: 12-lead Electrocardiogram Interpretation Note EKG was reviewed and interpreted by myself. 12-lead ECG performed at 0943 is interpreted by me as revealing normal sinus rhythm at a rate of 89 beats per minute. [place] is normal. WI Intervals 155 ms, QRS duration 76 ms, QTc is 424 ms.. There were no ST or T wave abnormalities to suggest myocardial ischemia or injury. R wave progression across the precordium was satisfactory. By my interpretation this EKG is non-diagnostic for acute ischemia. Disposition Clinical Impression: Fall, Shoulder sprain Disposition: HOME SELF-CARE Condition: Fair Instructions (If sedation given, give patient instructions): Fall Prevention (ED) Is patient prescribed a controlled substance at d/c from ED?: No Referrals: Connor King Jr, DO [Primary Care Provider] - 1-2 days Osvaldo Nye MD [STAFF PHYSICIAN] - 1-2 days Time of Disposition: 13:50
== END 2021-10-16 14:21 | disposition home or self-care (01) ==
LOC: EC 09:12
DX: S43.401A Unspecified sprain of right shoulder joint, initial encounter (principal); J45.909 Unspecified asthma, uncomplicated; Z86.73 Personal history of transient ischemic attack (TIA), and cerebral infarction without residual deficits; K21.9 Gastro-esophageal reflux disease without esophagitis; Z79.899 Other long term (current) drug therapy; I10 Essential (primary) hypertension; Z87.891 Personal history of nicotine dependence; Z88.1 Allergy status to other antibiotic agents; Z88.8 Allergy status to other drugs, medicaments and biological substances; Z91.018 Allergy to other foods; W22.03XA Walked into furniture, initial encounter; W06.XXXA Fall from bed, initial encounter
CPT/HCPCS: 36415; 93005; 80053; 83605; 85025; 81001; 73000; 73030; 74018; 70486; 70450; 74177; 99284; 96374; 96375; 96361; 96376; J2270; J2405; Q9967

== ENCOUNTER → 2022-03-06 | Outpatient (CLI) | payer OTHER ==
--- NOTE | 2022-03-06 17:54 | XR ---
EXAM TYPE: LUMBAR SPINE X RAY SERIES COMPARISON: NONE HISTORY: Pain TECHNIQUE: 3 views are submitted. FINDINGS: Alignment is anatomic. The pedicles are intact. The transverse processes are intact. There Surgica l clips in the gallbladder fossa. SI joints symmetric. Degenerative disc disease L4-5 with severe deg enerative disc disease L5-S1. Facet arthropathy at both levels with a slight anterolisthesis of L4 re lative to L5. Diffuse osteopenia. IMPRESSION: 1. Multilevel degenerative disc disease with slight anterolisthesis L4 on L5. Likely degenerative and secondary to facet arthropathy.
== END | disposition home or self-care (01) ==
LOC: RADXRMAIN 16:14
PROVIDERS: ATTEND Family Medicine
DX: M51.36 Other intervertebral disc degeneration, lumbar region (principal)
CPT/HCPCS: 72100

== ENCOUNTER 2022-03-07 12:53 | Emergency (ER) | payer OTHER ==
[2022-03-07] MEDS ORDERED: KETOROLAC 15 MG/ML 1 ML VIAL IVP STA (16:50)
--- NOTE | 2022-03-07 16:54 | ED ---
General Adult HPI - General Chief complaint: Back Pain/Injury Stated complaint: fell after seizure,lower back pain,sent by PCP Time Seen by Provider: 03/07/22 16:40 Source: patient, RN notes reviewed, old records reviewed Mode of arrival: ambulatory Limitations: no limitations - History of Present Illness Initial comments: This is a 52-year-old female presents emergency department after she rolled out of bed the other day and she complains of some right lower back pain. Patient states she was seen by her primary medical care doctor. But she told the primary medical care doctor she's having some urinary urgency. Patient denies any new numbness or weakness but she does have some pain in the lower back down her right leg.. Patient states she had x-rays yesterday that showed no acute abnormalities. Patient denies hitting her head or neck per patient denies any other injury at this time. - Related Data Home Medications Medication Instructions Recorded Confirmed Docusate Sodium [Dulcolax Stool 100 mg PO DAILY 03/03/14 08/31/21 Softener] Omeprazole [PriLOSEC] 20 mg PO BID 04/03/14 08/31/21 Azelastine HCl [Optivar 0.05% 1 drop BOTH EYES BID 06/12/16 08/31/21 Ophth Soln] OXcarbazepine [Oxtellar Xr] 900 mg PO HS 06/12/16 08/31/21 Prochlorperazine [Compazine] 10 mg PO TID PRN 06/12/16 09/02/21 Verapamil HCl [Verapamil ER] 120 mg PO QAM 06/12/16 08/31/21 Gabapentin 600 mg PO TID 06/07/18 08/31/21 metFORMIN HCL [metFORMIN HCL ER] 500 mg PO BID 06/07/18 08/31/21 HYDROcodone/APAP 10-325MG [[place] 1 tab PO TID 09/19/18 08/31/21 10-325] Citalopram Hydrobromide [CeleXA] 40 mg PO QAM 04/07/19 08/31/21 Oxybutynin ER [Ditropan Xl] 15 mg PO QAM 04/07/19 08/31/21 Losartan [Cozaar] 50 mg PO QAM 04/21/19 08/31/21 Atorvastatin [Lipitor] 40 mg PO DAILY 01/06/20 08/31/21 Albuterol Sulfate [Ventolin HFA] 2 puff INHALATION RT-QID PRN 03/01/20 08/31/21 Loratadine 10 mg PO DAILY 03/01/20 09/02/21 Lidocaine 5% Patch [Lidoderm] 1 patch TOPICAL DAILY PRN 08/31/21 09/02/21 Previous Rx's Medication Instructions Recorded Cyclobenzaprine [Flexeril] 10 mg PO TID #20 tab 03/07/22 predniSONE [Deltasone] 40 mg PO DAILY #8 tab 03/07/22 Allergies Allergy/AdvReac Type Severity Reaction Status Date / Time azithromycin Allergy Swelling Verified 03/07/22 13:42 [From Zithromax Z-Brayden] ondansetron HCl Allergy Vomiting;ONLY Verified 03/07/22 13:42 [From Zofran (as SUBLINGUAL hydrochloride)] GIVES MIGRANE and vomiting, ABLE T onion Allergy Swelling Verified 03/07/22 13:42 Review of Systems ROS Statement: Those systems with pertinent positive or pertinent negative responses have been documented in the HPI. ROS Other: All systems not noted in ROS Statement are negative. Past Medical History Past Medical History: Asthma, CVA/TIA, Diabetes Mellitus, Deep Vein Thrombosis (DVT), GERD/Reflux, Hyperlipidemia, Hypertension, Musculoskeletal Disorder, Oste oarthritis (OA), Seizure Disorder, Sleep Apnea/CPAP/BIPAP Additional Past Medical History / Comment(s): CHRONIC BACK PAIN , DDD, OCCASIONAL SCIATICA, HX OF SHATTERED TAILBONE, CHRONIC CERVICAL PAIN WITH SPURS , grand mal seizure with comprehension issues/loss of memory ever since (2016), "black outs" -no known cause,diverticulitis/colitis, constipation, overactive bladder, kidney stones., LAST SEIZURE January 2021, 03/2019- TIA. , WEARS BACK BRACE, shingles, UTIs, starting topical for vaginal yeast infection, stroke october 2019, sleep apnea-no home CPAP. palpable enlarged right groin lymph nodes History of Any Multi-Drug Resistant Organisms: MRSA Date of last positivie culture/infection: 07/12/19 MDRO Source:: belly button Past Surgical History: Appendectomy, Bowel Resection, Cholecystectomy, Heart Catheterization, Hysterectomy, Orthopedic Surgery, Tubal Ligation, Uterine Ablation Additional Past Surgical History / Comment(s): Bowel resection for colitis/diverticulitis, EGDs, colonoscopies, loop recorder now removed, multiple pain clinic procedures, bilateral rotator cuff surgery, R hand ganglion cyst removed 3 times, tilt table test, MRI with anesthesia d/t claustrophobia., Bilateral BICEP SURGERY Past Anesthesia/Blood Transfusion Reactions: Motion Sickness Type of Cardiac Device: Loop Device Placement Date:: MAR 2009 AND 2013 Past Psychological History: Anxiety Smoking Status: Former smoker Past Alcohol Use History: None Reported Past Drug Use History: None Reported - Past Family History Mother Family Medical History: Cancer Additional Family Medical History / Comment(s): Uterine cancer, with Covid at age 75. Father Family Medical History: Cancer Additional Family Medical History / Comment(s): Left lung cancer. General Exam - General Exam Comments Initial Comments: GENERAL: Patient is well-developed and well-nourished. Patient is nontoxic and well- hydrated and is in mild distress. ENT: Neck is soft and supple. Neck has full range of motion without eliciting any pain. EYES: The sclera were anicteric and conjunctiva were pink and moist. Extraocular movements were intact and pupils were equal round and reactive to light. Eyelids were unremarkable. SKIN: Skin is clear with no lesions or rashes and otherwise unremarkable. NEUROLOGIC: Patient is alert and oriented x3. Cranial nerves II through XII are grossly intact. Motor and sensory are also intact. Normal speech, volume and content. Symmetrical smile. intact. MUSCULOSKELETAL: Normal extremities with adequate strength and full range of motion. Patient has tenderness to the lower right back. Patient's perineum exam was normal. Had normal sensation. Patient's straight leg test was normal bilaterally. LYMPHATICS: No significant lymphadenopathy is noted PSYCHIATRIC: Normal psychiatric evaluation. Limitations: no limitations Course Vital Signs 03/07/22 13:40 Temperature 97.7 F Pulse Rate 92 Respiratory 20 Rate Blood Pressure 127/89 O2 Sat by Pulse 100 Oximetry Medical Decision Making - Medical Decision Making I reviewed the lumbar spine x-rays show no acute normalities. Patient had a postvoid residual of 14. Patient had normal perineum sensation Patient had normal straight leg raise test. - Lab Data Lab Results 03/07/22 Range/Units 17:02 Urine Color Light Yellow Urine Appearance Clear (Clear) Urine pH 7.5 (5.0-8.0) Ur Specific [place] 1.015 (1.001-1.035) Urine Protein Negative (Negative) Urine Glucose (UA) Negative (Negative) Urine Ketones Negative (Negative) Urine Blood Negative (Negative) Urine Nitrite Negative (Negative) Urine Bilirubin Negative (Negative) Urine Urobilinogen <2.0 (<2.0) mg/dL Ur Leukocyte Esterase Small H (Negative) Urine RBC <1 (0-5) /hpf Urine WBC 2 (0-5) /hpf Ur Squamous Epith Cells 2 (0-4) /hpf Urine Mucus Rare H (None) /hpf Disposition Clinical Impression: Lumbosacral strain Disposition: HOME SELF-CARE Condition: Good Instructions (If sedation given, give patient instructions): Acute Low Back Pain (ED) Prescriptions: predniSONE [Deltasone] 40 mg PO DAILY #8 tab Cyclobenzaprine [Flexeril] 10 mg PO TID #20 tab Is patient prescribed a controlled substance at d/c from ED?: No Referrals: Connor King Jr, [Primary Care Provider] - 1-2 days Time of Disposition: 18:33
[2022-03-07 17:16] LABS: Appearance,Urine Clear (Clear); Bilirubin,Urine Negative (Negative); Blood,Urine Negative (Negative); Color,Urine Light Yellow; Glucose,Urine (UA) Negative (Negative); Ketones,Urine Negative (Negative); Leukocyte Esterase,Urine Small (Negative); Mucus,Urine Rare /hpf; Nitrite,Urine Negative (Negative); PH, Urine 7.5 (5.0-8.0); Protein,Urine Negative (Negative); RBC,Urine <1 /hpf (0-5); Specific Gravity,Urine 1.015 (1.001-1.035); Squamous Epithelial Cell,Urine 2 /hpf (0-4); Urobilinogen,Urine <2.0 mg/dL (<2.0); WBC,Urine 2 /hpf (0-5)
[2022-03-07] MEDS ORDERED: KETOROLAC 15 MG/ML 1 ML VIAL IM STA (17:19)
[2022-03-07] MEDS ORDERED: HYDROmorphone 0.5 MG/0.5 ML SYRINGE IVP STA (18:31)
[2022-03-07] MEDS ORDERED: predniSONE 50 MG TAB PO STA (18:31)
[2022-03-07] MEDS ORDERED: ACET/COD 300 MG/30 MG STARTER PACK 6 TAB BTL PO STA (18:33)
[2022-03-07] MEDS ORDERED: HYDROmorphone 0.5 MG/0.5 ML SYRINGE IM STA (18:48)
[2022-03-07 18:52] VITALS: BP 115/75; PULSE 70; RESP 18; TEMP 98.2
== END 2022-03-07 19:00 | disposition home or self-care (01) ==
LOC: EC 12:53
DX: S39.012A Strain of muscle, fascia and tendon of lower back, initial encounter (principal); J45.909 Unspecified asthma, uncomplicated; I10 Essential (primary) hypertension; E78.5 Hyperlipidemia, unspecified; Z88.1 Allergy status to other antibiotic agents; Z88.8 Allergy status to other drugs, medicaments and biological substances; Z91.018 Allergy to other foods; Z86.73 Personal history of transient ischemic attack (TIA), and cerebral infarction without residual deficits; Z86.718 Personal history of other venous thrombosis and embolism; Z99.89 Dependence on other enabling machines and devices; Z87.891 Personal history of nicotine dependence; W06.XXXA Fall from bed, initial encounter; Y92.89 Other specified places as the place of occurrence of the external cause
CPT/HCPCS: 99283 ×2; 96374 ×2; 96372 ×2; 51798; 81001; J3360; J1885; J7512; J1170

== ENCOUNTER 2022-03-22 22:57 | Observation (INO) | payer OTHER ==
[2022-03-22] MEDS ORDERED: SODIUM CHLORIDE 0.9% 1,000 ML IV STA ×2 (23:02)
--- NOTE | 2022-03-22 23:03 | ED ---
Recheck HPI - General Stated Complaint: diabetic symptoms Time Seen by Provider: 03/22/22 23:02 Source: RN notes reviewed, old records reviewed Limitations: no limitations - History of Present Illness Initial Comments: This is a 32-year-old female to the emergency for evaluation, patient not feeling well, elevated blood sugar. Nausea no other complaints. Patient does not feel well, weak lightheaded and dizzy MD Complaint: abnormal lab -: days(s) Returns Today for: Called Because of Abnormal Lab/Test, persistent/worsening p ain related to initial visit Symptoms Since Prior Visit: no new symptoms Context: planned re-check Associated Symptoms: none Treatments Prior to Arrival: other (0) - Related Data Home Medications Medication Instructions Recorded Confirmed Docusate Sodium [Dulcolax Stool 100 mg PO DAILY 03/03/14 03/23/22 Softener] Omeprazole [PriLOSEC] 20 mg PO BID 04/03/14 03/23/22 Prochlorperazine [Compazine] 10 mg PO TID PRN 06/12/16 03/23/22 Verapamil HCl [Verapamil ER] 120 mg PO DAILY 06/12/16 03/23/22 Gabapentin 600 mg PO TID 06/07/18 03/23/22 HYDROcodone/APAP 10-325MG [[place] 1 tab PO TID PRN 09/19/18 03/23/22 10-325] Oxybutynin ER [Ditropan Xl] 15 mg PO DAILY 04/07/19 03/23/22 Losartan [Cozaar] 50 mg PO DAILY 04/21/19 03/23/22 Atorvastatin [Lipitor] 40 mg PO DAILY 01/06/20 03/23/22 Albuterol Sulfate [Ventolin HFA] 2 puff INHALATION RT-QID PRN 03/01/20 03/23/22 Cetirizine HCl [Zyrtec] 10 mg PO DAILY 03/23/22 03/23/22 Citalopram Hydrobromide [CeleXA] 40 mg PO DAILY 03/23/22 03/23/22 Cyclobenzaprine [Flexeril] 10 mg PO TID PRN 03/23/22 03/23/22 Lidocaine/Menthol 1 patch TRANSDERM DAILY PRN 03/23/22 03/23/22 [Lidocaine-Menthol 4%-1% Patch] OXcarbazepine [Oxtellar Xr] 900 mg PO HS 03/23/22 03/23/22 Olopatadine HCl [Patanol 0.1%] 1 drop BOTH EYES BID 03/23/22 03/23/22 Ondansetron [Zofran] 4 mg PO Q8H PRN 03/23/22 03/23/22 Temazepam [Restoril] 30 mg PO HS PRN 03/23/22 03/23/22 Previous Rx's Medication Instructions Recorded metFORMIN HCL [Glucophage] 250 mg PO DAILY #0 03/23/22 Allergies Allergy/AdvReac Type Severity Reaction Status Date / Time ondansetron HCl Allergy Vomting Verified 03/23/22 07:30 [From Zofran (as w/ODT tab hydrochloride)] only, IV okay onion Allergy Anaphylaxis Verified 03/23/22 07:30 azithromycin AdvReac Nausea & Verified 03/23/22 07:30 [From Zithromax Z-Brayden] Vomiting Review of Systems ROS Statement: Those systems with pertinent positive or pertinent negative responses have been documented in the HPI. ROS Other: All systems not noted in ROS Statement are negative. Past Medical History Past Medical History: Asthma, CVA/TIA, Diabetes Mellitus, Deep Vein Thrombosis (DVT), GERD/Reflux, Hyperlipidemia, Hypertension, Musculoskeletal Disorder, Osteoarthritis (OA), Seizure Disorder, Sleep Apnea/CPAP/BIPAP Additional Past Medical History / Comment(s): CHRONIC BACK PAIN , DDD, OCCASIONAL SCIATICA, HX OF SHATTERED TAILBONE, CHRONIC CERVICAL PAIN WITH SPURS , grand mal seizure with comprehension issues/loss of memory ever since (2016), "black outs" -no known cause,diverticulitis/colitis, constipation, overactive bladder, kidney stones., LAST SEIZURE January 2021, 03/2019- TIA. , WEARS BACK BRACE, shingles, UTIs, starting topical for vaginal yeast infection, stroke october 2019, sleep apnea-no home CPAP. palpable enlarged right groin lymph nodes History of Any Multi-Drug Resistant Organisms: MRSA Date of last positivie culture/infection: 07/12/19 MDRO Source:: belly button Past Surgical History: Appendectomy, Bowel Resection, Cholecystectomy, Heart Catheterization, Hysterectomy, Orthopedic Surgery, Tubal Ligation, Uterine Ablation Additional Past Surgical History / Comment(s): Bowel resection for colitis/diverticulitis, EGDs, colonoscopies, loop recorder now removed, multiple pain clinic procedures, bilateral rotator cuff surgery, R hand ganglion cyst removed 3 times, tilt table test, MRI with anesthesia d/t claustrophobia., Bilateral BICEP SURGERY Past Anesthesia/Blood Transfusion Reactions: Motion Sickness Type of Cardiac Device: Loop Device Placement Date:: MAR 2009 AND 2013 Past Psychological History: Anxiety Smoking Status: Former smoker Past Alcohol Use History: None Reported Past Drug Use History: None Reported - Past Family History Mother Family Medical History: Cancer Additional Family Medical History / Comment(s): Uterine cancer, with Covid at age 75. Father Family Medical History: Cancer Additional Family Medical History / Comment(s): Left lung cancer. General Exam General appearance: alert, in no apparent distress Head exam: Present: atraumatic, normocephalic, normal inspection Eye exam: Present: normal appearance, PERRL, EOMI. Absent: scleral icterus, conjunctival injection, periorbital swelling ENT exam: Present: normal exam, mucous membranes moist Neck exam: Present: normal inspection. Absent: tenderness, meningismus, lymphadenopathy Respiratory exam: Present: normal lung sounds bilaterally. Absent: respiratory distress, wheezes, rales, rhonchi, stridor Cardiovascular Exam: Present: regular rate, normal rhythm, normal heart sounds. Absent: systolic murmur, diastolic murmur, rubs, gallop, clicks GI/Abdominal exam: Present: soft, normal bowel sounds. Absent: distended, tenderness, guarding, rebound, rigid Extremities exam: Present: normal inspection, full ROM, normal capillary refill. Absent: tenderness, pedal edema, joint swelling, calf tenderness Back exam: Present: normal inspection Neurological exam: Present: alert, oriented X3, CN II-XII intact Psychiatric exam: Present: normal affect, normal mood Skin exam: Present: warm, dry, intact, normal color. Absent: rash Course Vital Signs 03/22/22 03/23/22 03/23/22 23:04 01:55 05:06 Temperature 97.1 F L Pulse Rate 89 76 76 Respiratory 18 18 16 Rate Blood Pressure 138/85 110/70 O2 Sat by Pulse 100 98 97 Oximetry 03/23/22 06:44 Temperature 97 F L Pulse Rate 71 Respiratory 18 Rate Blood Pressure 94/75 O2 Sat by Pulse 98 Oximetry - Reevaluation(s) Reevaluation #1: Medical record is reviewed Symptoms have been improved here in the ER Patient informed results and questions answered Medical Decision Making - Medical Decision Making 62 female to the emergency room for evaluation. Patient is multiple left foot abnormalities abnormal blood sugar, [place] for supportive care - Lab Data Result diagrams: 03/23/22 06:47 03/23/22 11:36 Lab Results 03/22/22 03/22/22 03/22/22 Range/Units 23:04 23:10 23:10 WBC 7.6 (3.8-10.6) k/uL RBC 4.34 (3.80-5.40) m/uL Hgb 13.5 (11.4-16.0) gm/dL Hct 38.3 (34.0-46.0) % MCV 88.3 (80.0-100.0) fL MCH 31.1 (25.0-35.0) pg MCHC 35.2 (31.0-37.0) g/dL RDW 12.2 (11.5-15.5) % Plt Count 254 (150-450) k/uL MPV 7.8 Neutrophils % 65 % Lymphocytes % 27 % Monocytes % 4 % Eosinophils % 2 % Basophils % 1 % Neutrophils # 5.0 (1.3-7.7) k/uL Lymphocytes # 2.1 (1.0-4.8) k/uL Monocytes # 0.3 (0-1.0) k/uL Eosinophils # 0.2 (0-0.7) k/uL Basophils # 0.0 (0-0.2) k/uL PT 10.6 (9.0-12.0) sec INR 1.0 (<1.2) APTT 26.3 (22.0-30.0) sec Sodium (137-145) mmol/L Potassium (3.5-5.1) mmol/L Chloride (98-107) mmol/L Carbon Dioxide (22-30) mmol/L Anion Gap mmol/L BUN (7-17) mg/dL Creatinine (0.52-1.04) mg/dL Est GFR (CKD-EPI)AfAm (>60 ml/min/1.73 sqM) Est GFR (CKD-EPI)NonAf (>60 ml/min/1.73 sqM) Glucose (74-99) mg/dL POC Glucose (mg/dL) 131 H (70-110) mg/dL POC Glu [place] Inspector Filiberto Lomax Calcium (8.4-10.2) mg/dL Phosphorus (2.5-4.5) mg/dL Magnesium (1.6-2.3) mg/dL Total Bilirubin (0.2-1.3) mg/dL AST (14-36) U/L ALT (4-34) U/L Alkaline Phosphatase (38-126) U/L Troponin I (0.000-0.034) ng/mL NT-Pro-B Natriuret Pep pg/mL Total Protein (6.3-8.2) g/dL Albumin (3.5-5.0) g/dL Urine Color Urine Appearance (Clear) Urine pH (5.0-8.0) Ur Specific [place] (1.001-1.035) Urine Protein (Negative) Urine Glucose (UA) (Negative) Urine Ketones (Negative) Urine Blood (Negative) Urine Nitrite (Negative) Urine Bilirubin (Negative) Urine Urobilinogen (<2.0) mg/dL Ur Leukocyte Esterase (Negative) Acetone, Qual (Negative) 03/22/22 03/22/22 03/22/22 Range/Units 23:10 23:10 23:10 WBC (3.8-10.6) k/uL RBC (3.80-5.40) m/uL Hgb (11.4-16.0) gm/dL Hct (34.0-46.0) % MCV (80.0-100.0) fL MCH (25.0-35.0) pg MCHC (31.0-37.0) g/dL RDW (11.5-15.5) % Plt Count (150-450) k/uL MPV Neutrophils % % Lymphocytes % % Monocytes % % Eosinophils % % Basophils % % Neutrophils # (1.3-7.7) k/uL Lymphocytes # (1.0-4.8) k/uL Monocytes # (0-1.0) k/uL Eosinophils # (0-0.7) k/uL Basophils # (0-0.2) k/uL PT (9.0-12.0) sec INR (<1.2) APTT (22.0-30.0) sec Sodium 132 L (137-145) mmol/L Potassium 3.9 (3.5-5.1) mmol/L Chloride 95 L (98-107) mmol/L Carbon Dioxide 22 (22-30) mmol/L Anion Gap 15 mmol/L BUN 10 (7-17) mg/dL Creatinine 0.60 (0.52-1.04) mg/dL Est GFR (CKD-EPI)AfAm >90 (>60 ml/min/1.73 sqM) Est GFR (CKD-EPI)NonAf >90 (>60 ml/min/1.73 sqM) Glucose 118 H (74-99) mg/dL POC Glucose (mg/dL) (70-110) mg/dL POC Glu [place] Inspector ID Calcium 9.7 (8.4-10.2) mg/dL Phosphorus 2.2 L (2.5-4.5) mg/dL Magnesium 1.4 L (1.6-2.3) mg/dL Total Bilirubin 0.3 (0.2-1.3) mg/dL AST 23 (14-36) U/L ALT 24 (4-34) U/L Alkaline Phosphatase 98 (38-126) U/L Troponin I <0.012 (0.000-0.034) ng/mL NT-Pro-B Natriuret Pep 30 pg/mL Total Protein 8.0 (6.3-8.2) g/dL Albumin 4.8 (3.5-5.0) g/dL Urine Color Urine Appearance (Clear) Urine pH (5.0-8.0) Ur Specific [place] (1.001-1.035) Urine Protein (Negative) Urine Glucose (UA) (Negative) Urine Ketones (Negative) Urine Blood (Negative) Urine Nitrite (Negative) Urine Bilirubin (Negative) Urine Urobilinogen (<2.0) mg/dL Ur Leukocyte Esterase (Negative) Acetone, Qual Negative (Negative) 03/23/22 Range/Units 00:03 WBC (3.8-10.6) k/uL RBC (3.80-5.40) m/uL Hgb (11.4-16.0) gm/dL Hct (34.0-46.0) % MCV (80.0-100.0) fL MCH (25.0-35.0) pg MCHC (31.0-37.0) g/dL RDW (11.5-15.5) % Plt Count (150-450) k/uL MPV Neutrophils % % Lymphocytes % % Monocytes % % Eosinophils % % Basophils % % Neutrophils # (1.3-7.7) k/uL Lymphocytes # (1.0-4.8) k/uL Monocytes # (0-1.0) k/uL Eosinophils # (0-0.7) k/uL Basophils # (0-0.2) k/uL PT (9.0-12.0) sec INR (<1.2) APTT (22.0-30.0) sec Sodium (137-145) mmol/L Potassium (3.5-5.1) mmol/L Chloride (98-107) mmol/L Carbon Dioxide (22-30) mmol/L Anion Gap mmol/L BUN (7-17) mg/dL Creatinine (0.52-1.04) mg/dL Est GFR (CKD-EPI)AfAm (>60 ml/min/1.73 sqM) Est GFR (CKD-EPI)NonAf (>60 ml/min/1.73 sqM) Glucose (74-99) mg/dL POC Glucose (mg/dL) (70-110) mg/dL POC Glu [place] Inspector ID Calcium (8.4-10.2) mg/dL Phosphorus (2.5-4.5) mg/dL Magnesium (1.6-2.3) mg/dL Total Bilirubin (0.2-1.3) mg/dL AST (14-36) U/L ALT (4-34) U/L Alkaline Phosphatase (38-126) U/L Troponin I (0.000-0.034) ng/mL NT-Pro-B Natriuret Pep pg/mL Total Protein (6.3-8.2) g/dL Albumin (3.5-5.0) g/dL Urine Color Colorless Urine Appearance Clear (Clear) Urine pH 8.5 H (5.0-8.0) Ur Specific [place] 1.006 (1.001-1.035) Urine Protein Negative (Negative) Urine Glucose (UA) Negative (Negative) Urine Ketones Negative (Negative) Urine Blood Negative (Negative) Urine Nitrite Negative (Negative) Urine Bilirubin Negative (Negative) Urine Urobilinogen <2.0 (<2.0) mg/dL Ur Leukocyte Esterase Negative (Negative) Acetone, Qual (Negative) - EKG Data -: EKG Interpreted by Me (EKG 72 VA 154 QRS 90 QTC 427) Disposition Clinical Impression: Gastroenteritis, Hypomagnesemia, Diabetes, Obesity, Dehydration Disposition: ADMITTED IP TO THIS HOSP Condition: Undetermined Is patient prescribed a controlled substance at d/c from ED?: No Time of Disposition: 00:40
[2022-03-22 23:07] LABS: Glucose,Whole Blood 131 mg/dL (70-110)
[2022-03-22 23:40] LABS: Basophils % (A) 1 %; Eosinophils # (A) 0.2 k/uL (0-0.7); Eosinophils % (A) 2 %; HCT 38.3 % (34.0-46.0); HGB 13.5 gm/dL (11.4-16.0); Lymphocytes # (A) 2.1 k/uL (1.0-4.8); Lymphocytes % (A) 27 %; MCH 31.1 pg (25.0-35.0); MCHC 35.2 g/dL (31.0-37.0); MCV 88.3 fL (80.0-100.0); Mean Platelet Volume 7.8; Monocytes # (A) 0.3 k/uL (0-1.0); Monocytes % (A) 4 %; Neutrophils % (A) 65 %; Platelet Count 254 k/uL (150-450); RBC 4.34 m/uL (3.80-5.40); RDW 12.2 % (11.5-15.5); WBC 7.6 k/uL (3.8-10.6)
[2022-03-22 23:52] LABS: Partial Thromboplastin Time 26.3 sec (22.0-30.0); Prothrombin Time 10.6 sec (9.0-12.0)
[2022-03-22 23:58] LABS: ALT 24 U/L (4-34); AST 23 U/L (14-36); African American GFR (CKD) >90 (>60 ml/min/1.73 sqM); Albumin 4.8 g/dL (3.5-5.0); Alkaline Phosphatase 98 U/L (38-126); Anion Gap 15 mmol/L; Blood Urea Nitrogen 10 mg/dL (7-17); Calcium 9.7 mg/dL (8.4-10.2); Carbon Dioxide 22 mmol/L (22-30); Chloride 95 mmol/L (98-107); Glucose 118 mg/dL (74-99); Magnesium 1.4 mg/dL (1.6-2.3); Non-African American GFR(CKD) >90 (>60 ml/min/1.73 sqM); Phosphorus 2.2 mg/dL (2.5-4.5); Potassium 3.9 mmol/L (3.5-5.1); Sodium 132 mmol/L (137-145); Total Bilirubin 0.3 mg/dL (0.2-1.3)
[2022-03-23 00:15] LABS: Appearance,Urine Clear (Clear); Bilirubin,Urine Negative (Negative); Blood,Urine Negative (Negative); Color,Urine Colorless; Glucose,Urine (UA) Negative (Negative); Ketones,Urine Negative (Negative); Leukocyte Esterase,Urine Negative (Negative); Nitrite,Urine Negative (Negative); PH, Urine 8.5 (5.0-8.0); Protein,Urine Negative (Negative); Specific Gravity,Urine 1.006 (1.001-1.035); Urobilinogen,Urine <2.0 mg/dL (<2.0)
[2022-03-23] MEDS ORDERED: NALOXONE 0.4 MG/ML 1 ML VIAL IV PRN (00:34)
[2022-03-23] MEDS ORDERED: ONDANSETRON 4 MG/2 ML VIAL IVP PRN (00:35)
[2022-03-23] MEDS ORDERED: DEXTROSE 5%-0.45% NACL 1,000 ML IV SCH (00:45)
[2022-03-23 06:48] LABS: Glucose,Whole Blood 97 mg/dL (70-110)
[2022-03-23 07:06] LABS: Basophils % (A) 1 %; Eosinophils # (A) 0.2 k/uL (0-0.7); Eosinophils % (A) 3 %; HCT 38.4 % (34.0-46.0); HGB 13.4 gm/dL (11.4-16.0); Lymphocytes # (A) 2.1 k/uL (1.0-4.8); Lymphocytes % (A) 27 %; MCH 31.7 pg (25.0-35.0); MCV 90.6 fL (80.0-100.0); Mean Platelet Volume 7.5; Monocytes # (A) 0.4 k/uL (0-1.0); Monocytes % (A) 5 %; Neutrophils # (A) 4.9 k/uL (1.3-7.7); Neutrophils % (A) 63 %; Platelet Count 256 k/uL (150-450); RBC 4.24 m/uL (3.80-5.40); RDW 12.4 % (11.5-15.5); WBC 7.7 k/uL (3.8-10.6)
[2022-03-23] MEDS ORDERED: ONDANSETRON 4 MG TAB PO PRN (09:44)
[2022-03-23] MEDS ORDERED: DOCUSATE 100 MG CAP PO SCH (09:45)
[2022-03-23] MEDS ORDERED: PANTOPRAZOLE 40 MG TABLET PO SCH (09:45)
[2022-03-23] MEDS ORDERED: DEXTROSE 50% SYRINGE 50 ML IVP PRN ×2 (11:05)
[2022-03-23] MEDS ORDERED: VERAPAMIL SR 120 MG TABLET.ER PO SCH (11:45)
[2022-03-23] MEDS ORDERED: ALBUTEROL NEBULIZED 2.5 MG/3 ML INHALATION PRN (11:45)
[2022-03-23 12:06] LABS: Magnesium 1.6 mg/dL (1.6-2.3); Potassium 4.5 mmol/L (3.5-5.1)
[2022-03-23 12:10] LABS: Glucose,Whole Blood 111 mg/dL (70-110)
[2022-03-23 12:12] VITALS: BMI 33.2
[2022-03-23] MEDS ORDERED: INSULIN ASPART (NovoLOG) 100 UNIT/ML VIAL SQ SCH (12:30)
[2022-03-23] MEDS ORDERED: Magnesium Replacement Protocol 1 EACH MISC MISCELLANE PRN (13:20)
[2022-03-23 13:21] VITALS: BP 107/73; PULSE 77; RESP 16; TEMP 97.4
[2022-03-23] MEDS ORDERED: MAGNESIUM SULFATE-D5W PMX 1 GM in DEXTROSE/WATER 1 100ML.BAG IVPB ONE ×2 (14:00→15:00)
[2022-03-23 14:35] LABS: ALT 24 U/L (4-34); AST 20 U/L (14-36); African American GFR (CKD) >90 (>60 ml/min/1.73 sqM); Albumin 4.5 g/dL (3.5-5.0); Albumin/Globulin Ratio 1.4; Alkaline Phosphatase 96 U/L (38-126); Anion Gap 11 mmol/L; Blood Urea Nitrogen 7 mg/dL (7-17); Calcium 9.6 mg/dL (8.4-10.2); Carbon Dioxide 28 mmol/L (22-30); Chloride 101 mmol/L (98-107); Globulin 3.2 g/dL; Glucose 94 mg/dL (74-99); Magnesium 1.6 mg/dL (1.6-2.3); Non-African American GFR(CKD) >90 (>60 ml/min/1.73 sqM); Phosphorus 4.3 mg/dL (2.5-4.5); Potassium 4.6 mmol/L (3.5-5.1); Sodium 140 mmol/L (137-145); Total Bilirubin 0.1 mg/dL (0.2-1.3); Total Protein 7.7 g/dL (6.3-8.2)
--- NOTE | 2022-03-23 16:17 | P.HPIM ---
History of Present Illness H&P Date: 03/23/22 Chief Complaint: Hypoglycemia History and Physical and Discharge Summary: This is a 50-year-old female with a history of diabetes, obesity, intentional weight loss , CVA, DVT/PE, hypertension, hyperlipidemia, gastroesoph ageal reflux disease, seizure disorder and multiple other medical issues admitted with symptomatic hypoglycemia. Reports that she is intentionally been losing weight for preparation for a umbilical hernia repair; reports a 20 pound weight loss over the last 3 months. Reports her last A1c at the office was 5, med changes made. She does not consume a bedtime snack. Reports she had been eating just had been not eating as much over the last couple of days. Vague about following consistent carb diet-but stated that her does the cooking. reports she does drink a little bottles of pop. Reports symptoms of sweating, lightheadedness, double vision, shakiness. Reports chronic nausea, no emesis. Denies abdominal pain. Denies chest pain, palpitations or shortness of breath. Currently ambulating to bathroom, denies lightheadedness dizziness or focal deficits. Reports her blood sugar was in the low 60s at home, consumed a small bottle of pop. Proceeded to the ER with a blood sugar of 118 on admission. Eating lunch, Currently 111. Electrolytes within normal limits, magnesium 14, receiving supplementation. Renal function stable . Afebrile, normal WBC. Acetone negative. Review of Systems ROS Statement: Those systems with pertinent positive or pertinent negative responses have been documented in the HPI. ROS Other: All systems not noted in ROS Statement are negative. Past Medical History Past Medical History: Asthma, CVA/TIA, Diabetes Mellitus, Deep Vein Thrombosis (DVT), GERD/Reflux, Hyperlipidemia, Hypertension, Musculoskeletal Disorder, Osteoarthritis (OA), Seizure Disorder, Sleep Apnea/CPAP/BIPAP Additional Past Medical History / Comment(s): CHRONIC BACK PAIN , DDD, OCCASIONAL SCIATICA, HX OF SHATTERED TAILBONE, CHRONIC CERVICAL PAIN WITH SPURS , grand mal seizure with comprehension issues/loss of memory ever since (2016), "black outs" -no known cause,diverticulitis/colitis, constipation, overactive bladder, kidney stones., LAST SEIZURE January 2021, 03/2019- TIA. , WEARS BACK BRACE, shingles, UTIs, starting topical for vaginal yeast infection, stroke october 2019, sleep apnea-no home CPAP. palpable enlarged right groin lymph nodes History of Any Multi-Drug Resistant Organisms: MRSA Date of last positivie culture/infection: 07/12/19 MDRO Source:: belly button Past Surgical History: Appendectomy, Bowel Resection, Cholecystectomy, Heart Catheterization, Hysterectomy, Orthopedic Surgery, Tubal Ligation, Uterine Ablation Additional Past Surgical History / Comment(s): Bowel resection for colitis/diverticulitis, EGDs, colonoscopies, loop recorder now removed, multiple pain clinic procedures, bilateral rotator cuff surgery, R hand ganglion cyst removed 3 times, tilt table test, MRI with anesthesia d/t claustrophobia., Bilateral BICEP SURGERY Past Anesthesia/Blood Transfusion Reactions: Motion Sickness Type of Cardiac Device: Loop Device Placement Date:: MAR 2009 AND 2013 Past Psychological History: Anxiety Additional Psychological History / Comment(s): . Smoking Status: Former smoker Past Alcohol Use History: None Reported Additional Past Alcohol Use History / Comment(s): Light smoker from 2001 until 2009. SMOKED 1 PACK EVERY 3-4 DAYS. Past Drug Use History: None Reported - Past Family History Mother Family Medical History: Cancer Additional Family Medical History / Comment(s): Uterine cancer, with Covid at age 75. Father Family Medical History: Cancer Additional Family Medical History / Comment(s): Left lung cancer. Medications and Allergies Home Medications Medication Instructions Recorded Confirmed Type Docusate Sodium [Dulcolax Stool 100 mg PO DAILY 03/03/14 03/23/22 History Softener] Omeprazole [PriLOSEC] 20 mg PO BID 04/03/14 03/23/22 History Prochlorperazine [Compazine] 10 mg PO TID PRN 06/12/16 03/23/22 History Verapamil HCl [Verapamil ER] 120 mg PO DAILY 06/12/16 03/23/22 History Gabapentin 600 mg PO TID 06/07/18 03/23/22 History HYDROcodone/APAP 10-325MG [[place] 1 tab PO TID PRN 09/19/18 03/23/22 History 10-325] Oxybutynin ER [Ditropan Xl] 15 mg PO DAILY 04/07/19 03/23/22 History Losartan [Cozaar] 50 mg PO DAILY 04/21/19 03/23/22 History Atorvastatin [Lipitor] 40 mg PO DAILY 01/06/20 03/23/22 History Albuterol Sulfate [Ventolin HFA] 2 puff INHALATION RT-QID PRN 03/01/20 03/23/22 History Cetirizine HCl [Zyrtec] 10 mg PO DAILY 03/23/22 03/23/22 History Citalopram Hydrobromide [CeleXA] 40 mg PO DAILY 03/23/22 03/23/22 History Cyclobenzaprine [Flexeril] 10 mg PO TID PRN 03/23/22 03/23/22 History Lidocaine/Menthol 1 patch TRANSDERM DAILY PRN 03/23/22 03/23/22 History [Lidocaine-Menthol 4%-1% Patch] OXcarbazepine [Oxtellar Xr] 900 mg PO HS 03/23/22 03/23/22 History Olopatadine HCl [Patanol 0.1%] 1 drop BOTH EYES BID 03/23/22 03/23/22 History Ondansetron [Zofran] 4 mg PO Q8H PRN 03/23/22 03/23/22 History Temazepam [Restoril] 30 mg PO HS PRN 03/23/22 03/23/22 History metFORMIN HCL [Glucophage] 250 mg PO DAILY #0 03/23/22 03/23/22 Rx Allergies Allergy/AdvReac Type Severity Reaction Status Date / Time ondansetron HCl Allergy Vomting Verified 03/23/22 07:30 [From Zofran (as w/ODT tab hydrochloride)] only, IV okay onion Allergy Anaphylaxis Verified 03/23/22 07:30 azithromycin AdvReac Nausea & Verified 03/23/22 07:30 [From Zithromax Z-Brayden] Vomiting Physical Exam Vitals: Vital Signs Temp Pulse Pulse Resp BP BP Pulse Ox 03/23/22 13:21 97.4 F L 77 16 107/73 98 03/23/22 09:30 18 03/23/22 08:30 98 F 69 18 120/82 97 03/23/22 06:44 97 F L 71 18 94/75 98 03/23/22 05:06 76 16 97 03/23/22 01:55 76 18 110/70 98 03/22/22 23:04 97.1 F L 89 18 138/85 100 Intake and Output 03/22/22 03/23/22 03/23/22 22:59 06:59 14:59 Intake Total 480 Balance 480 Intake: Oral 480 Other: # Voids 2 Weight 79.832 kg 79.832 kg GENERAL: Well-appearing, obese female, no acute distress. HEAD: Atraumatic, normocephalic. EYES: , extraocular movements intact, sclera anicteric, conjunctiva are normal. ENT:nares patent, oropharynx clear without exudates. Moist mucous membranes. NECK: Normal range of motion, supple without lymphadenopathy or JVD, no thyromegaly LUNGS: Breath sounds clear to auscultation bilaterally and equal. No wheezes rales or rhonchi. HEART: Regular rate and rhythm without murmurs, rubs or gallops.S1S2 Normal ABDOMEN: Soft, nontender, normoactive bowel sounds. No guarding, no rebound. No masses appreciated. EXTREMITIES: Normal range of motion, no edema. No clubbing or cyanosis. NEUROLOGICAL: Cranial nerves II through XII grossly intact. Normal speech, normal gait. PSYCH: Normal mood, normal affect. SKIN: Warm, Dry, normal turgor, no rashes noted. Results CBC & Chem 7: 03/23/22 06:47 03/23/22 11:36 Labs: Abnormal Lab Results - Last 24 Hours (Table) 03/22/22 03/22/22 03/23/22 Range/Units 23:04 23:10 00:03 Sodium 132 L (137-145) mmol/L Chloride 95 L (98-107) mmol/L Glucose 118 H (74-99) mg/dL POC Glucose (mg/dL) 131 H (70-110) mg/dL Phosphorus 2.2 L (2.5-4.5) mg/dL Magnesium 1.4 L (1.6-2.3) mg/dL Urine pH 8.5 H (5.0-8.0) 03/23/22 Range/Units 12:08 Sodium (137-145) mmol/L Chloride (98-107) mmol/L Glucose (74-99) mg/dL POC Glucose (mg/dL) 111 H (70-110) mg/dL Phosphorus (2.5-4.5) mg/dL Magnesium (1.6-2.3) mg/dL Urine pH (5.0-8.0) Thrombosis Risk Factor Assmnt - Choose All That Apply Each Factor Represents 1 point: Age 41-60 years, Obesity (BMI >25) Other congenital or acquired thrombophilia - If yes, enter type in comment: No Thrombosis Risk Factor Assessment Total Risk Factor Score: 2 Thrombosis Risk Factor Assessment Level: Low Risk Assessment and Plan Assessment: (1) symptomatic hypoglycemia in a patient intentionally losing weight, reported 20 pounds over the last 3 months, in addition to possibly noncompliant with consistent carb diet, gastroenteritis, possible mild dehydration. (2) skilled nursing (current) use of anticoagulants Current Visit: Yes Status: Acute Code(s): Z79.01 - CUSTODIAL (CURRENT) USE OF ANTICOAGULANTS SNOMED Code(s): 510662460 (3) H/O: CVA (cerebrovascular accident) Current Visit: Yes Status: Acute Code(s): Z86.73 - PRSNL HX OF TIA (TIA), AND CEREB INFRC W/O RESID DEFICITS SNOMED Code(s): 128544614 (4) History of pulmonary embolism Current Visit: Yes Status: Acute Code(s): Z86.711 - PERSONAL HISTORY OF PULMONARY EMBOLISM SNOMED Code(s): 855304998 (5) Asthma Current Visit: No Status: Acute Code(s): J45.909 - UNSPECIFIED ASTHMA, UNCOMPLICATED SNOMED Code(s): 233707997 (6) Cervical spondylosis without myelopathy Current Visit: No Status: Acute Code(s): M47.812 - SPONDYLOSIS W/O MYELOPATHY OR RADICULOPATHY, CERVICAL REGION SNOMED Code(s): 470149473 (7) Diabetes Current Visit: No Status: Acute Code(s): E11.9 - TYPE 2 DIABETES MELLITUS WITHOUT COMPLICATIONS SNOMED Code(s): 09170526 (8) Essential (primary) hypertension Current Visit: No Status: Acute Code(s): I10 - ESSENTIAL (PRIMARY) HYPERTENSION SNOMED Code(s): 92276686 (9) Chronic pain syndrome Current Visit: No Status: Chronic Code(s): G89.4 - CHRONIC PAIN SYNDROME SNOMED Code(s): 919972696 (10) Obesity, BMI 33.3 Current Visit: Yes Status: Acute Code(s): E66.9 - OBESITY, UNSPECIFIED SNOMED Code(s): 990122910 Hypomagnesemia Plan: Continue on current medication regime ,monitoring and symptomatic treatment. Patient's magnesium will be supplemented. Inpatient Dietitian consulted to discuss consistent carb diet, changes in dietary lifestyle , composition in timing of meals, 40 processed starchy foods and alcohol as well as balanced meals, lean protein, replacing processed carbs etc. Patient and significant other advised per patient to follow-up with family living educator outpatient at follow-up visit at PCPs office. Patient has been instructed to decrease her metformin as advised per PCP. Patient just recently obtained a brand-new glucometer. Patient has been advised to maintain a log of diet intake and Accu-Cheks before meals and at bedtime-reports she has been checking her sugars almost every 2 hours including after she eats intake to follow-up visit with PCP on Sunday. A1c ordered with results to be faxed to PCPs office. Hypoglycemic measures discussed, including utilizing the on-call after-hours for concerns. Patient will be discharged home today in a stable condition with guarded prognosis. Discharge Medication List Docusate Sodium [Dulcolax Stool Softener] 100 mg PO DAILY 03/03/14 [History] Omeprazole [PriLOSEC] 20 mg PO BID 04/03/14 [History] Prochlorperazine [Compazine] 10 mg PO TID PRN 06/12/16 [History] Verapamil HCl [Verapamil ER] 120 mg PO DAILY 06/12/16 [History] Gabapentin 600 mg PO TID 06/07/18 [History] HYDROcodone/APAP 10-325MG [[place] 10-325] 1 tab PO TID PRN 09/19/18 [History] Oxybutynin ER [Ditropan Xl] 15 mg PO DAILY 04/07/19 [History] Losartan [Cozaar] 50 mg PO DAILY 04/21/19 [History] Atorvastatin [Lipitor] 40 mg PO DAILY 01/06/20 [History] Albuterol Sulfate [Ventolin HFA] 2 puff INHALATION RT-QID PRN 03/01/20 [History] Cetirizine HCl [Zyrtec] 10 mg PO DAILY 03/23/22 [History] Citalopram Hydrobromide [CeleXA] 40 mg PO DAILY 09/29/22 [History] Cyclobenzaprine [Flexeril] 10 mg PO TID PRN 03/23/22 [History] Lidocaine/Menthol [Lidocaine-Menthol 4%-1% Patch] 1 patch TRANSDERM DAILY PRN 03/23/22 [History] OXcarbazepine [Oxtellar Xr] 900 mg PO HS 03/23/22 [History] Olopatadine HCl [Patanol 0.1%] 1 drop BOTH EYES BID 03/23/22 [History] Ondansetron [Zofran] 4 mg PO Q8H PRN 03/23/22 [History] Temazepam [Restoril] 30 mg PO HS PRN 03/23/22 [History] metFORMIN HCL [Glucophage] 250 mg PO DAILY #0 03/23/22 [Rx] The impression and plan of care has been dictated as directed. : I performed a history and examination of this patient, discussed the same with the dictator. I agree with the dictator's note ,documented as a scribe. Any additional findings or plans will be noted. The impression and plan of care has been dictated as directed. .: I performed a history and examination of this patient, discussed the same with the dictator. I agree with the dictator's note ,documented as a scribe. Any additional findings or plans will be noted.
[2022-03-23 17:06] LABS: Glucose,Whole Blood 105 mg/dL (70-110)
[2022-03-23] MEDS ORDERED: NON FORMULARY DRUG (Oxcarbazepine [Oxtellar Xr] 300 MG Tablet) PO SCH (21:00)
[2022-03-23] MEDS ORDERED: KETOTIFEN 0.025% OPHTH DROPS 5 ML BTL BOTH EYES SCH (21:00)
[2022-03-24] MEDS ORDERED: ATORVASTATIN 40 MG TAB PO SCH (09:00)
[2022-03-24] MEDS ORDERED: OXYBUTYNIN 15 MG TAB.ER.24 PO SCH (09:00)
== END 2022-03-23 18:25 | disposition home or self-care (01) ==
LOC: EC 22:57 → 6NMEDSUR 03-23 00:34
PROVIDERS: ADMIT Family Medicine; ATTEND Family Medicine
DX: E11.649 Type 2 diabetes mellitus with hypoglycemia without coma (principal); K52.9 Noninfective gastroenteritis and colitis, unspecified; E83.42 Hypomagnesemia; E66.9 Obesity, unspecified; E86.0 Dehydration; J45.909 Unspecified asthma, uncomplicated; K21.9 Gastro-esophageal reflux disease without esophagitis; E78.5 Hyperlipidemia, unspecified; I10 Essential (primary) hypertension; M19.90 Unspecified osteoarthritis, unspecified site; G47.30 Sleep apnea, unspecified; G40.909 Epilepsy, unspecified, not intractable, without status epilepticus; M54.9 Dorsalgia, unspecified; F41.9 Anxiety disorder, unspecified; M47.812 Spondylosis without myelopathy or radiculopathy, cervical region; G89.4 Chronic pain syndrome; Z68.33 Body mass index [BMI] 33.0-33.9, adult; Z86.711 Personal history of pulmonary embolism; Z86.718 Personal history of other venous thrombosis and embolism; Z86.73 Personal history of transient ischemic attack (TIA), and cerebral infarction without residual deficits; Z87.891 Personal history of nicotine dependence; Z79.01 Long term (current) use of anticoagulants; Z79.84 Long term (current) use of oral hypoglycemic drugs; Z79.899 Other long term (current) drug therapy; Z88.1 Allergy status to other antibiotic agents; Z80.49 Family history of malignant neoplasm of other genital organs; Z80.1 Family history of malignant neoplasm of trachea, bronchus and lung
CPT/HCPCS: 96365; 96366; 96375; 99285; 36415; 93005; 97162; 83880; 80053 ×2; 82009; 83735 ×2; 84100 ×2; 84132; 84484; 85025 ×2; 85610; 85730; 81003; 83036; G0378; J3475

== ENCOUNTER → 2022-07-25 | Outpatient (CLI) | payer OTHER ==
--- NOTE | 2022-07-25 08:21 | MM ---
Reason for Exam: Screening (asymptomatic). Last mammogram was performed 3 year(s) and 3 month(s) ago. Patient History: Menarche at age 10. First Full-Term at age 17. Postmenopausal. Maternal grandmother had breast cancer. Maternal aunt had breast cancer. Risk Values: Jana 5 year model risk: 0.8%. NCI Lifetime model risk: 6.9%. Prior Study Comparison: 04/15/2018 Bilateral Screening Mammogram, [facility]. 04/16/2019 Bilateral Diagnostic Mammogram, [facility]. Tissue Density: The breast tissue is heterogeneously dense. This may lower the sensitivity of mammography. Findings: Analyzed By CAD. There is no suspicious group of microcalcifications or new suspicious mass in either breast. Scattered benign calcifications. Overall Assessment: Benign, BI-RAD 2 Management: Screening Mammogram of both breasts in 1 year. A clinical breast exam by your physician is recommended on an annual basis and results should be correlated with mammographic findings. Electronically signed and approved by: Gerard Gold D.O.
== END | disposition home or self-care (01) ==
LOC: RADMAMWWP 06:56
PROVIDERS: ATTEND Family Medicine
DX: Z12.31 Encounter for screening mammogram for malignant neoplasm of breast (principal); Z78.0 Asymptomatic menopausal state; Z80.3 Family history of malignant neoplasm of breast
CPT/HCPCS: 77067

== ENCOUNTER 2022-12-23 20:04 | Emergency (ER) | payer OTHER ==
[2022-12-23 21:21] LABS: Glucose,Whole Blood 172 mg/dL (70-110)
[2022-12-23] MEDS ORDERED: HYDROmorphone 1 MG/ML 1 ML SYRINGE IM STA (21:53)
--- NOTE | 2022-12-23 22:55 | ED ---
Back Pain HPI - General Chief Complaint: Back Pain/Injury Stated Complaint: Lower Back pain Time Seen by Provider: 12/23/22 21:14 Source: patient, RN notes reviewed, old records reviewed Mode of arrival: EMS Limitations: no limitations - History of Present Illness Initial Comments: This is a 52-year-old female to the emergency department for evaluation patient Dese for evaluation of back pain severe. History of chronic back pain acute on chronic back pain with no new trauma. No loss of bowel loss of bladder able to ambulate the patient is unable to roll over in bed currently for exam. Patient states she took pain medication at home which she does take [place] with no help. MD Complaint: back pain, back injury -: hour(s) Similar Symptoms Previously: Yes Place: home Radiation: none Severity: severe Severity scale (1-10): 10 Quality: burning, sharp Consistency: constant Improves With: none Worsens With: none Context: while lifting, turning/twisting, bending Associated Symptoms: denies other symptoms - Related Data Home Medications Medication Instructions Recorded Confirmed Omeprazole [PriLOSEC] 20 mg PO BID 04/03/14 08/17/22 Prochlorperazine [Compazine] 10 mg PO TID PRN 06/12/16 08/17/22 Verapamil HCl [Verapamil ER] 120 mg PO DAILY 06/12/16 08/17/22 Gabapentin 600 mg PO BID 06/07/18 08/17/22 HYDROcodone/APAP 10-325MG [[place] 1 tab PO TID PRN 09/19/18 08/17/22 10-325] Oxybutynin ER [Ditropan XL] 15 mg PO DAILY 04/07/19 08/17/22 Losartan [Cozaar] 50 mg PO DAILY 04/21/19 08/17/22 Atorvastatin [Lipitor] 40 mg PO DAILY 01/06/20 08/17/22 Albuterol Sulfate [Ventolin HFA] 2 puff INHALATION RT-QID PRN 03/01/20 08/17/22 Cetirizine HCl [Zyrtec] 10 mg PO DAILY 03/23/22 08/17/22 Citalopram Hydrobromide [CeleXA] 40 mg PO DAILY 03/23/22 08/17/22 Lidocaine/Menthol 1 patch TRANSDERM DAILY PRN 03/23/22 08/17/22 [Lidocaine-Menthol 4%-1% Patch] OXcarbazepine [Oxtellar Xr] 900 mg PO HS 03/23/22 08/17/22 Olopatadine HCl [Patanol 0.1%] 1 drop BOTH EYES BID 03/23/22 08/17/22 Temazepam [Restoril] 30 mg PO HS PRN 03/23/22 08/17/22 polyethylene glycoL 3350 [Miralax] 17 gm PO BID PRN 08/17/22 08/17/22 Previous Rx's Medication Instructions Recorded metFORMIN HCL [Glucophage] 250 mg PO DAILY #0 03/23/22 predniSONE [Deltasone] 40 mg PO DAILY #8 tab 08/17/22 Cephalexin [Keflex] 500 mg PO Q6HR #40 cap 12/30/22 Allergies Allergy/AdvReac Type Severity Reaction Status Date / Time ondansetron HCl Allergy Vomting Verified 08/17/22 19:44 [From Zofran (as w/ODT tab hydrochloride)] only, IV okay onion Allergy Anaphylaxis Verified 08/17/22 19:44 azithromycin AdvReac Nausea & Verified 08/17/22 19:44 [From Zithromax Z-Brayden] Vomiting Review of Systems ROS Statement: Those systems with pertinent positive or pertinent negative responses have been documented in the HPI. ROS Other: All systems not noted in ROS Statement are negative. Past Medical History Past Medical History: Asthma, CVA/TIA, Diabetes Mellitus, Deep Vein Thrombosis (DVT), GERD/Reflux, Hyperlipidemia, Hypertension, Musculoskeletal Disorder, Osteoarthritis (OA), Seizure Disorder, Sleep Apnea/CPAP/BIPAP Additional Past Medical History / Comment(s): CHRONIC BACK PAIN , DDD, OCCASIONAL SCIATICA, HX OF SHATTERED TAILBONE, CHRONIC CERVICAL PAIN WITH SPURS , grand mal seizure with comprehension issues/loss of memory ever since (2016), "black outs" -no known cause,diverticulitis/colitis, constipation, overactive bladder, kidney stones., LAST SEIZURE 06/25/2103/2019- TIA/stroke october 2019, , shingles, sleep apnea-no home CPAP. palpable enlarged right groin lymph nodes, hypoglycemic episodes, right leg DVT History of Any Multi-Drug Resistant Organisms: MRSA Date of last positivie culture/infection: 07/12/19 MDRO Source:: belly button Past Surgical History: Appendectomy, Bowel Resection, Cholecystectomy, Heart Catheterization, Orthopedic Surgery, Tubal Ligation, Uterine Ablation Additional Past Surgical History / Comment(s): Bowel resection for colitis/diverticulitis, EGDs, colonoscopies, loop recorder now removed, multiple pain clinic procedures, bilateral rotator cuff surgery, R hand ganglion cyst removed 3 times, tilt table test, MRI with anesthesia d/t claustrophobia., Bilateral BICEP SURGERY, left knee surgery meniscus tear repair x2 Past Anesthesia/Blood Transfusion Reactions: Motion Sickness Type of Cardiac Device: Loop Device Placement Date:: MAR 2009 AND 2013 Past Psychological History: Anxiety, Depression Smoking Status: Former smoker Past Alcohol Use History: None Reported Past Drug Use History: None Reported - Past Family History Mother Family Medical History: Cancer Additional Family Medical History / Comment(s): Uterine cancer, with Covid at age 75. Father Family Medical History: Cancer Additional Family Medical History / Comment(s): Left lung cancer. General Exam General appearance: alert, in no apparent distress Head exam: Present: atraumatic, normocephalic, normal inspection Eye exam: Present: normal appearance, PERRL, EOMI. Absent: scleral icterus, conjunctival injection, periorbital swelling ENT exam: Present: normal exam, mucous membranes moist Neck exam: Present: normal inspection. Absent: tenderness, meningismus, lymphadenopathy Respiratory exam: Present: normal lung sounds bilaterally. Absent: respiratory distress, wheezes, rales, rhonchi, stridor Cardiovascular Exam: Present: regular rate, normal rhythm, normal heart sounds. Absent: systolic murmur, diastolic murmur, rubs, gallop, clicks GI/Abdominal exam: Present: soft, normal bowel sounds. Absent: distended, tenderness, guarding, rebound, rigid Extremities exam: Present: normal inspection, full ROM, normal capillary refill. Absent: tenderness, pedal edema, joint swelling, calf tenderness Back exam: Present: normal inspection Neurological exam: Present: alert, oriented X3, CN II-XII intact Psychiatric exam: Present: normal affect, normal mood Skin exam: Present: warm, dry, intact, normal color. Absent: rash Course Vital Signs 12/23/22 12/24/22 12/24/22 20:35 00:16 01:33 Temperature 98.5 F 98.1 F Pulse Rate 93 91 Respiratory 20 18 Rate Blood Pressure 123/86 118/71 O2 Sat by Pulse 95 95 Oximetry - Reevaluation(s) Reevaluation #1: 12/24/22 06:58 Medical record is reviewed Reevaluation #2: 12/24/22 06:58 Patient was going to be admitted to the hospital but upon admission patient decided that it was a better transfer to go home Reevaluation #3: 12/24/22 06:58 Patient informed results and questions answered Reevaluation #4: 12/24/22 06:58 Was pt. sent in by a medical professional or institution? @ -no Did you speak to anyone other than the patient for history? @ -no Did you review nursing and triage notes? @ -agree Were old charts reviewed? @ -yes Differential Diagnosis? @ -prior EKG interpreted by me (3pts min.)? @ -no X-rays interpreted by me (1pt min.)? @ -no CT interpreted by me (1pt min.)? @ -yes U/S interpreted by me (1pt. min.)? @ -no What testing was considered but not performed? (CT, X-rays, U/S, labs)? Why? @ -no What meds were considered but not given? Why? @ -no Did you discuss the management of the patient with other professionals? @ -no Did you reconcile home meds? @ -no Was smoking cessation discussed for >3mins.? @ -no Was critical care preformed (if so, how long)? @ -no Were there social determinants of health that impacted care today? How? (Homelessness, low income, unemployed, alcoholism, drug addiction, transportation, low edu. Level, literacy, decrease access to med. care, intermediate, rehab)? @ -no Was there de-escalation of care discussed even if they declined? (Discuss DNR or withdrawal of care, Hospice)? @ -no What co-morbidities impacted this encounter? (DM, HTN, Smoking, COPD, CAD, Cancer, CVA, Hep., AIDS, mental health diagnosis, sleep apnea, morbid obesity)? @ -none Was patient admitted / discharged? @ 52 female to the emergency department for evaluation of back pain severe. Patient is imaging here of her back which shows no acute disease or change in progress. Patient's back pain is now currently well-controlled feels good for discharge home and this patient can walk can ambulate without difficulty Discharge- Undiagnosed new problem with uncertain prognosis? @ -no Drug Therapy requiring intensive monitoring for toxicity (Heparin, Nitro, Insulin, Cardizem)? @ -no Were any procedures done? @ -no Diagnosis/symptom? @ -Acute back pain Acute, or Chronic, or Acute on Chronic? @ -acute Uncomplicated (without systemic symptoms) or Complicated (systemic symptoms)? @ -complicated Side effects of treatment? @ -no Exacerbation, Progression, or Severe Exacerbation] @ -no Poses a threat to life or bodily function? @ -yes Reevaluation #5: 12/24/22 06:58 Differential Back Pain: Strain, zoster, cauda equina syndrome, epidural abscess, vertebral osteomyelitis, discitis, fracture, subluxation, disc herniation, DJD, spinal stenosis, dissection, AAA, pancreatitis, peptic ulcer disease, pyelonephritis, kidney stone, this is not meant to be an all-inclusive list. Medical Decision Making - Medical Decision Making 52 female to the emergency department for evaluation of back pain severe. Patient is imaging here of her back which shows no acute disease or change in progress. Patient's back pain is now currently well-controlled feels good for discharge home and this patient can walk can ambulate without difficulty - Lab Data Lab Results 12/23/22 12/23/22 Range/Units 21:19 23:57 POC Glucose (mg/dL) 172 H 81 (70-110) mg/dL POC Glu [employer]board Developer Filiberto Sanchez Kyle - Radiology Data Radiology results: report reviewed (CT of the lumbar spine spine does does show significant chronic changes), image reviewed Disposition Clinical Impression: Lumbar radiculopathy, chronic Disposition: HOME SELF-CARE Condition: Fair Instructions (If sedation given, give patient instructions): Acute Low Back Pain (ED) Is patient prescribed a controlled substance at d/c from ED?: No Referrals: Connor King Jr, DO [Primary Care Provider] - 1-2 days Time of Disposition: 00:15
--- NOTE | 2022-12-23 23:11 | CT ---
EXAMINATION TYPE: CT lumbar spine wo con DATE OF EXAM: 12/23/2022 COMPARISON: None HISTORY: back and bilateral leg pain CT DLP: 1261.6 mGycm CONTRAST: None TECHNIQUE: CT of the lumbar spine is performed on a spiral scan at 3 mm thick sections. Reconstructed images are performed in the coronal and sagittal planes. FINDINGS: T12-L1: No focal disc herniation or significant disc bulge is evident. No spinal canal stenosis or neural foraminal stenosis is present. L1-L2: No focal disc herniation or significant disc bulge is evident. No spinal canal stenosis or n eural foraminal stenosis is present L2-L3: No focal disc herniation or significant disc bulge is evident. No spinal canal stenosis or n eural foraminal stenosis is present L3-L4: Mild disc bulge with anterior thecal sac flattening. No spinal canal stenosis or neural forami nal stenosis present. L4-L5: Broad-based disc bulging is present with anterior thecal sac flattening. Facet hypertrophy and advanced degenerative changes are within the facets. No spinal canal stenosis is present. Ligamentum flavum laxity is present. L5-S1: There is narrowing of the disc height. Some vacuum disc phenomenon is present. Vertebral alignment appears normal. IMPRESSION: 1. Disc bulging and ligamentum flavum laxity L4-5. This has moderate anterior thecal sac compression and some canal narrowing. Stenosis is not present. 2. Mild degenerative disc changes and vacuum disc phenomenon L5-S1
[2022-12-23 23:59] LABS: Glucose,Whole Blood 81 mg/dL (70-110)
[2022-12-24] MEDS ORDERED: IBUPROFEN 800 MG TAB PO STA (00:03)
[2022-12-24] MEDS ORDERED: HYDROcodone/APAP 10-325MG 1 EACH TAB PO ONE (00:03)
[2022-12-24 00:16] VITALS: BP 118/71; PULSE 91; RESP 18
[2022-12-24 01:34] VITALS: TEMP 98.1
== END 2022-12-24 01:25 | disposition home or self-care (01) ==
LOC: EC 20:04
DX: G89.29 Other chronic pain (principal); M54.16 Radiculopathy, lumbar region; I10 Essential (primary) hypertension; E11.9 Type 2 diabetes mellitus without complications; E78.5 Hyperlipidemia, unspecified; F32.A Depression, unspecified; G47.30 Sleep apnea, unspecified; J45.909 Unspecified asthma, uncomplicated; K21.9 Gastro-esophageal reflux disease without esophagitis; Z79.899 Other long term (current) drug therapy; Z87.891 Personal history of nicotine dependence; Z88.1 Allergy status to other antibiotic agents; Z88.8 Allergy status to other drugs, medicaments and biological substances; Z91.018 Allergy to other foods
CPT/HCPCS: 36415; 72131; 99284; 96372; J1170

== ENCOUNTER 2022-12-30 10:25 | Emergency (ER) | payer OTHER ==
[2022-12-30 10:29] VITALS: TEMP 98
[2022-12-30] MEDS ORDERED: KETOROLAC 15 MG/ML 1 ML VIAL IVP STA (10:43)
--- NOTE | 2022-12-30 10:49 | ED ---
Skin/Abscess/FB HPI - General Chief complaint: Skin/Abscess/Foreign Body Stated complaint: Facial swelling Time Seen by Provider: 12/30/22 10:31 Source: patient, RN notes reviewed, old records reviewed Mode of arrival: ambulatory Limitations: no limitations - History of Present Illness Initial comments: 52-year-old female presents with complaints of abscess to left side of her scalp for the past 3 days. States that she does have a history of MRSA. Did see her primary care doctor and was prescribed Bactrim which she has taken for the past 2 days but did not take today. States that she is having left-sided facial swelling now. Does have nausea but no vomiting. No fevers. Does have history of diabetes, asthma, DVT, hypertension and seizure disorder. Guardian at bedside concerned for worsening infection requesting blood work. MD complaint: abscess/boil -: days(s) (3) Quality: aching Consistency: constant Improves with: none Worsens with: palpation Associated symptoms: nausea Treatments Prior to Arrival: antibiotic (bactrim 2 days) - Related Data Home Medications Medication Instructions Recorded Confirmed Omeprazole [PriLOSEC] 20 mg PO BID 04/03/14 08/17/22 Prochlorperazine [Compazine] 10 mg PO TID PRN 06/12/16 08/17/22 Verapamil HCl [Verapamil ER] 120 mg PO DAILY 06/12/16 08/17/22 Gabapentin 600 mg PO BID 06/07/18 08/17/22 HYDROcodone/APAP 10-325MG [[place] 1 tab PO TID PRN 09/19/18 08/17/22 10-325] Oxybutynin ER [Ditropan XL] 15 mg PO DAILY 04/07/19 08/17/22 Losartan [Cozaar] 50 mg PO DAILY 04/21/19 08/17/22 Atorvastatin [Lipitor] 40 mg PO DAILY 01/06/20 08/17/22 Albuterol Sulfate [Ventolin HFA] 2 puff INHALATION RT-QID PRN 03/01/20 08/17/22 Cetirizine HCl [Zyrtec] 10 mg PO DAILY 03/23/22 08/17/22 Citalopram Hydrobromide [CeleXA] 40 mg PO DAILY 03/23/22 08/17/22 Lidocaine/Menthol 1 patch TRANSDERM DAILY PRN 03/23/22 08/17/22 [Lidocaine-Menthol 4%-1% Patch] OXcarbazepine [Oxtellar Xr] 900 mg PO HS 03/23/22 08/17/22 Olopatadine HCl [Patanol 0.1%] 1 drop BOTH EYES BID 03/23/22 08/17/22 Temazepam [Restoril] 30 mg PO HS PRN 03/23/22 08/17/22 polyethylene glycoL 3350 [Miralax] 17 gm PO BID PRN 08/17/22 08/17/22 Previous Rx's Medication Instructions Recorded metFORMIN HCL [Glucophage] 250 mg PO DAILY #0 03/23/22 predniSONE [Deltasone] 40 mg PO DAILY #8 tab 08/17/22 Cephalexin [Keflex] 500 mg PO Q6HR #40 cap 12/30/22 Allergies Allergy/AdvReac Type Severity Reaction Status Date / Time ondansetron HCl Allergy Vomting Verified 08/17/22 19:44 [From Zofran (as w/ODT tab hydrochloride)] only, IV okay onion Allergy Anaphylaxis Verified 08/17/22 19:44 azithromycin AdvReac Nausea & Verified 08/17/22 19:44 [From Zithromax Z-Brayden] Vomiting Review of Systems ROS Statement: Those systems with pertinent positive or pertinent negative responses have been documented in the HPI. ROS Other: All systems not noted in ROS Statement are negative. Past Medical History Past Medical History: Asthma, CVA/TIA, Diabetes Mellitus, Deep Vein Thrombosis (DVT), GERD/Reflux, Hyperlipidemia, Hypertension, Musculoskeletal Disorder, Osteoarthritis (OA), Seizure Disorder, Sleep Apnea/CPAP/BIPAP Additional Past Medical History / Comment(s): CHRONIC BACK PAIN , DDD, OCCASIONAL SCIATICA, HX OF SHATTERED TAILBONE, CHRONIC CERVICAL PAIN WITH SPURS , grand mal seizure with comprehension issues/loss of memory ever since (2016), "black outs" -no known cause,diverticulitis/colitis, constipation, overactive bladder, kidney stones., LAST SEIZURE 06/25/2103/2019- TIA/stroke october 2019, , shingles, sleep apnea-no home CPAP. palpable enlarged right groin lymph nodes, hypoglycemic episodes, right leg DVT History of Any Multi-Drug Resistant Organisms: MRSA Date of last positivie culture/infection: 07/12/19 MDRO Source:: belly button Past Surgical History: Appendectomy, Bowel Resection, Cholecystectomy, Heart Catheterization, Orthopedic Surgery, Tubal Ligation, Uterine Ablation Additional Past Surgical History / Comment(s): Bowel resection for colitis/diverticulitis, EGDs, colonoscopies, loop recorder now removed, multiple pain clinic procedures, bilateral rotator cuff surgery, R hand ganglion cyst removed 3 times, tilt table test, MRI with anesthesia d/t claustrophobia., Bilateral BICEP SURGERY, left knee surgery meniscus tear repair x2 Past Anesthesia/Blood Transfusion Reactions: Motion Sickness Type of Cardiac Device: Loop Device Placement Date:: MAR 2009 AND 2013 Past Psychological History: Anxiety, Depression Smoking Status: Former smoker Past Alcohol Use History: None Reported Past Drug Use History: None Reported - Past Family History Mother Family Medical History: Cancer Additional Family Medical History / Comment(s): Uterine cancer, with Covid at age 75. Father Family Medical History: Cancer Additional Family Medical History / Comment(s): Left lung cancer. General Exam Limitations: no limitations General appearance: alert, in no apparent distress Head exam: Present: atraumatic, normocephalic Expanded Head exam: Present: other (draining abscess 2mm with surrounding erythema approximately 1 cm left temporal) Eye exam: Present: normal appearance, PERRL, EOMI, periorbital tenderness (left). Absent: scleral icterus, conjunctival injection, nystagmus ENT exam: Present: normal exam, normal oropharynx, mucous membranes moist Neck exam: Absent: tenderness, meningismus Respiratory exam: Absent: respiratory distress, accessory muscle use Cardiovascular Exam: Present: tachycardia GI/Abdominal exam: Present: soft. Absent: distended, tenderness, guarding, rebound, rigid Extremities exam: Present: normal capillary refill Neurological exam: Present: alert, oriented X3, CN II-XII intact Psychiatric exam: Present: normal affect, normal mood Skin exam: Present: warm, dry, normal color. Absent: cyanosis, diaphoretic, petechiae, pallor Course Vital Signs 12/30/22 12/30/22 10:27 12:07 Temperature 98 F Pulse Rate 104 H 81 Respiratory 18 16 Rate Blood Pressure 124/81 108/73 O2 Sat by Pulse 98 94 L Oximetry Medical Decision Making - Medical Decision Making Was pt. sent in by a medical professional or institution (ASPEN Betancur, STATIONARY ENGINEER SUPERVISOR, urgent ca re, hospital, or care home...) When possible be specific @ -No Did you speak to anyone other than the patient for history (EMS, parent, family, police, friend...)? What history was obtained from this source @ -Family member at bedside states legal guardian Did you review nursing and triage notes (agree or disagree)? Why? @ -I reviewed and agree with nursing and triage notes Were old charts reviewed (outside hosp., previous admission, EMS record, old EKG, old radiological studies, urgent care reports/EKG's, care home records)? Report findings @ -No old charts were reviewed Differential Diagnosis (chest pain, altered mental status, abdominal pain women, abdominal pain men, vaginal bleeding, weakness, fever, dyspnea, syncope, heada drew, dizziness, GI bleed, back pain, seizure, CVA, palpatations, mental health, musculoskeletal)? @ -Abscess, orbital cellulitis, facial cellulitis, erysipelas this is not an all inclusive list EKG interpreted by me (3pts min.). @ -n/a X-rays interpreted by me (1pt min.). @ -None done CT interpreted by me (1pt min.). @ -None done U/S interpreted by me (1pt. min.). @ -None done What testing was considered but not performed or refused? (CT, X-rays, U/S, labs)? Why? @ -None What meds were considered but not given or refused? Why? @ -None Did you discuss the management of the patient with other professionals (professionals i.e. ASPEN Betancur, STATIONARY ENGINEER SUPERVISOR, lab, RT, psych nurse, social science instructor, global regulatory affairs manager, teacher, aoc operations intelligence officer, pillowcase maker)? Give summary @ -No Was smoking cessation discussed for >3mins.? @ -No Was critical care preformed (if so, how long)? @ -No Were there social determinants of health that impacted care today? How? (Homelessness, low income, unemployed, alcoholism, drug addiction, transportation, low edu. Level, literacy, decrease access to med. care, fpc, rehab)? @ -No Was there de-escalation of care discussed even if they declined (Discuss DNR or withdrawal of care, Hospice)? DNR status @ -No What co-morbidities impacted this encounter? (DM, HTN, Smoking, COPD, CAD, Cancer, CVA, ARF, Chemo, Hep., AIDS, mental health diagnosis, sleep apnea, morbid obesity)? @ -Obesity, asthma, DVT, GERD, hypertension, hyperlipidemia, osteoarthritis, seizure disorder, chronic back pain MRSA, anxiety and depression Was patient admitted / discharged? Hospital course, mention meds given and route, prescriptions, significant lab abnormalities, going to OR and other pertinent info. @ -Discharged 52-year-old female presents with complaints of abscess to left side of her scalp for the past 3 days. States that she does have a history of MRSA. Did see her primary care doctor and was prescribed Bactrim which she has taken for the past 2 days but did not take today. States that she is having left-sided facial swelling now. Does have nausea but no vomiting. No fevers. Does have history of diabetes, asthma, DVT, hypertension and seizure disorder. Guardian at bedside concerned for worsening infection requesting blood work. Labs show no evidence of leukocytosis. She was given Toradol for pain and inflammation and Zofran for nausea which she states from the Bactrim. Wound with minimal drainage, culture was obtained and sent. She was prescribed Keflex to take in addition to the Bactrim. She was offered Zofran states unable to tolerate oral Zofran. I did recommend Benadryl [id number] as needed for nausea. She was directed to follow up with her primary care doctor on Sunday return to the emergency room with any new or concerning symptoms. Patient and guardian are agreeable to this plan of care. Case discussed with Dr. Shell. Undiagnosed new problem with uncertain prognosis? @ -No Drug Therapy requiring intensive monitoring for toxicity (Heparin, Nitro, Insulin, Cardizem)? @ -No Were any procedures done? @ -No Diagnosis/symptom? @ -Abscess with cellulitis Acute, or Chronic, or Acute on Chronic? @ -Acute Uncomplicated (without systemic symptoms) or Complicated (systemic symptoms)? @ -Uncomplicated Side effects of treatment? @ -No Exacerbation, Progression, or Severe Exacerbation? @ -No Poses a threat to life or bodily function? How? (Chest pain, [place], [place], pneumonia, PE, COPD, DKA, ARF, appy, cholecystitis, CVA, Diverticulitis, Homicidal, Suicidal, threat to staff... and all critical care pts) @ -No - Lab Data Result diagrams: 12/30/22 11:04 12/30/22 11:04 Lab Results 12/30/22 12/30/22 Range/Units 11:04 11:04 WBC 6.0 (3.8-10.6) k/uL RBC 4.22 (3.80-5.40) m/uL Hgb 13.4 (11.4-16.0) gm/dL Hct 39.1 (34.0-46.0) % MCV 92.6 (80.0-100.0) fL MCH 31.7 (25.0-35.0) pg MCHC 34.2 (31.0-37.0) g/dL RDW 12.3 (11.5-15.5) % Plt Count 253 (150-450) k/uL MPV 7.2 Neutrophils % 70 % Lymphocytes % 20 % Monocytes % 5 % Eosinophils % 4 % Basophils % 0 % Neutrophils # 4.2 (1.3-7.7) k/uL Lymphocytes # 1.2 (1.0-4.8) k/uL Monocytes # 0.3 (0-1.0) k/uL Eosinophils # 0.3 (0-0.7) k/uL Basophils # 0.0 (0-0.2) k/uL Sodium 136 L (137-145) mmol/L Potassium 4.6 (3.5-5.1) mmol/L Chloride 104 (98-107) mmol/L Carbon Dioxide 21 L (22-30) mmol/L Anion Gap 11 mmol/L BUN 11 (7-17) mg/dL Creatinine 0.67 (0.52-1.04) mg/dL Est GFR (CKD-EPI)AfAm >90 (>60 ml/min/1.73 sqM) Est GFR (CKD-EPI)NonAf >90 (>60 ml/min/1.73 sqM) Glucose 129 H (74-99) mg/dL Calcium 9.1 (8.4-10.2) mg/dL Total Bilirubin 0.4 (0.2-1.3) mg/dL AST 23 (14-36) U/L ALT 26 (4-34) U/L Alkaline Phosphatase 85 (38-126) U/L Total Protein 7.9 (6.3-8.2) g/dL Albumin 4.2 (3.5-5.0) g/dL Disposition Clinical Impression: Abscess or cellulitis of scalp Disposition: HOME SELF-CARE Condition: Good Additional Instructions: Take antibiotics as prescribed. Motrin and or Tylenol for pain and discomfort. Follow up with the primary care doctor on Sunday. Return to the emergency room with any new or concerning symptoms. Prescriptions: Cephalexin [Keflex] 500 mg PO Q6HR #40 cap Is patient prescribed a controlled substance at d/c from ED?: No Referrals: Connor King Jr, [Primary Care Provider] - 1-2 days Time of Disposition: 11:51
[2022-12-30] MEDS ORDERED: ONDANSETRON 4 MG/2 ML VIAL IVP STA (11:07)
[2022-12-30 11:23] LABS: Basophils % (A) 0 %; Eosinophils # (A) 0.3 k/uL (0-0.7); Eosinophils % (A) 4 %; HCT 39.1 % (34.0-46.0); HGB 13.4 gm/dL (11.4-16.0); Lymphocytes # (A) 1.2 k/uL (1.0-4.8); Lymphocytes % (A) 20 %; MCH 31.7 pg (25.0-35.0); MCHC 34.2 g/dL (31.0-37.0); MCV 92.6 fL (80.0-100.0); Mean Platelet Volume 7.2; Monocytes # (A) 0.3 k/uL (0-1.0); Monocytes % (A) 5 %; Neutrophils # (A) 4.2 k/uL (1.3-7.7); Neutrophils % (A) 70 %; Platelet Count 253 k/uL (150-450); RBC 4.22 m/uL (3.80-5.40); RDW 12.3 % (11.5-15.5)
[2022-12-30 11:37] LABS: ALT 26 U/L (4-34); AST 23 U/L (14-36); African American GFR (CKD) >90 (>60 ml/min/1.73 sqM); Albumin 4.2 g/dL (3.5-5.0); Alkaline Phosphatase 85 U/L (38-126); Anion Gap 11 mmol/L; Blood Urea Nitrogen 11 mg/dL (7-17); Calcium 9.1 mg/dL (8.4-10.2); Carbon Dioxide 21 mmol/L (22-30); Chloride 104 mmol/L (98-107); Glucose 129 mg/dL (74-99); Non-African American GFR(CKD) >90 (>60 ml/min/1.73 sqM); Potassium 4.6 mmol/L (3.5-5.1); Sodium 136 mmol/L (137-145); Total Bilirubin 0.4 mg/dL (0.2-1.3); Total Protein 7.9 g/dL (6.3-8.2)
[2022-12-30 12:09] VITALS: BP 108/73; PULSE 81; RESP 16
== END 2022-12-30 12:07 | disposition home or self-care (01) ==
LOC: EC 10:25
DX: L03.811 Cellulitis of head [any part, except face] (principal); E11.9 Type 2 diabetes mellitus without complications; E78.5 Hyperlipidemia, unspecified; F32.A Depression, unspecified; G47.30 Sleep apnea, unspecified; I10 Essential (primary) hypertension; J45.909 Unspecified asthma, uncomplicated; K21.9 Gastro-esophageal reflux disease without esophagitis; M19.90 Unspecified osteoarthritis, unspecified site; Z79.52 Long term (current) use of systemic steroids; Z79.84 Long term (current) use of oral hypoglycemic drugs; Z79.899 Other long term (current) drug therapy; Z88.1 Allergy status to other antibiotic agents; Z88.8 Allergy status to other drugs, medicaments and biological substances; Z91.018 Allergy to other foods; Z87.891 Personal history of nicotine dependence
CPT/HCPCS: 36415; 80053; 85025; 87070; 87205; 99283; 96374; 96375; J2405; J1885

== ENCOUNTER 2023-04-13 11:11 | Emergency (ER) | payer OTHER ==
--- NOTE | 2023-04-13 13:20 | ED ---
General Adult HPI - General Source: patient Mode of arrival: ambulatory Limitations: no limitations <Viviane Knapp - Last Filed: 04/13/23 14:25> - General Source: RN notes reviewed, old records reviewed - History of Present Illness -: hour(s) Location: eyes Consistency: now resolved Improves with: none Worsens with: none Associated Symptoms: denies other symptoms Treatments Prior to Arrival: none <Stephen Sosa - Last Filed: 04/14/23 16:48> - General Chief complaint: Neuro Symptoms/Deficit Stated complaint: blacked out Time Seen by Provider: 04/13/23 13:14 - History of Present Illness Initial comments: Patient is a 53 year old female who presents to the emergency department for visual changes. Patient states everything went dark for a brief period while in the shower. She did not fall or pass out. Denies visual symptoms currently. No chest pain or shortness of breath no history of syncope or arrhythmia. (Viviane Knapp) This is a 53-year-old female to the emergency department for evaluation of a episode where she lost vision in both her eyes. Patient presents today for evaluation of loss of vision in both eyes of the same time. Patient was in the shower and she notices event, she does or did originally think that her turned the lights off in the bathroom to play check on her. He states he did not turn the lights #1 out. Patient at this time has no significant recurrent symptoms. No headaches or other complaints (Stephen Sosa) - Related Data Home Medications Medication Instructions Recorded Confirmed Omeprazole [PriLOSEC] 20 mg PO BID 04/03/14 04/13/23 Verapamil HCl [Verapamil ER] 120 mg PO DAILY 06/12/16 04/13/23 Gabapentin 300 mg PO BID 06/07/18 04/13/23 HYDROcodone/APAP 10-325MG [Bascom 1 tab PO TID PRN 09/19/18 04/13/23 10-325] Oxybutynin ER [Ditropan XL] 15 mg PO DAILY 04/07/19 04/13/23 Losartan [Cozaar] 50 mg PO DAILY 04/21/19 04/13/23 Atorvastatin [Lipitor] 40 mg PO DAILY 01/06/20 04/13/23 Albuterol Sulfate [Ventolin HFA] 2 puff INHALATION RT-QID PRN 03/01/20 04/13/23 Cetirizine HCl [Zyrtec] 10 mg PO DAILY 03/23/22 04/13/23 Citalopram Hydrobromide [CeleXA] 40 mg PO DAILY 03/23/22 04/13/23 Lidocaine/Menthol 1 patch TRANSDERM DAILY PRN 03/23/22 04/13/23 [Lidocaine-Menthol 4%-1% Patch] OXcarbazepine [Oxtellar Xr] 900 mg PO HS 03/23/22 04/13/23 Olopatadine HCl [Patanol 0.1%] 1 drop BOTH EYES BID 03/23/22 04/13/23 diphenhydrAMINE [Benadryl] 25 mg PO QID PRN 04/13/23 04/13/23 Allergies Allergy/AdvReac Type Severity Reaction Status Date / Time onion Allergy Anaphylaxis Verified 04/13/23 18:15 azithromycin AdvReac Nausea & Verified 04/13/23 18:15 [From Zithromax Z-Brayden] Vomiting ondansetron HCl AdvReac Vomting Verified 04/13/23 18:15 [From Zofran (as w/ODT tab hydrochloride)] only, IV okay Review of Systems ROS Other: All systems not noted in ROS Statement are negative. <Viviane Knapp - Last Filed: 04/13/23 14:25> ROS Other: All systems not noted in ROS Statement are negative. <Stephen Sosa - Last Filed: 04/14/23 16:48> ROS Statement: Those systems with pertinent positive or pertinent negative responses have been documented in the HPI. Past Medical History Past Medical History: Asthma, CVA/TIA, Diabetes Mellitus, Deep Vein Thrombosis (DVT), GERD/Reflux, Hyperlipidemia, Hypertension, Musculoskeletal Disorder, Osteoarthritis (OA), Seizure Disorder, Sleep Apnea/CPAP/BIPAP Additional Past Medical History / Comment(s): CHRONIC BACK PAIN , DDD, OCCASIONAL SCIATICA, HX OF SHATTERED TAILBONE, CHRONIC CERVICAL PAIN WITH SPURS , grand mal seizure with comprehension issues/loss of memory ever since (2017), "black outs" -no known cause,diverticulitis/colitis, constipation, overactive bladder, kidney stones., LAST SEIZURE 06/25/2103/2019- TIA/stroke october 2019, , shingles, sleep apnea-no home CPAP. palpable enlarged right groin lymph nodes, hypoglycemic episodes, right leg DVT History of Any Multi-Drug Resistant Organisms: MRSA Date of last positivie culture/infection: 12/30/22 MDRO Source:: Scalp Past Surgical History: Appendectomy, Bowel Resection, Cholecystectomy, Heart Catheterization, Orthopedic Surgery, Tubal Ligation, Uterine Ablation Additional Past Surgical History / Comment(s): Bowel resection for colitis/diverticulitis, EGDs, colonoscopies, loop recorder now removed, multiple pain clinic procedures, bilateral rotator cuff surgery, R hand ganglion cyst removed 3 times, tilt table test, MRI with anesthesia d/t claustrophobia., Bilateral BICEP SURGERY, left knee surgery meniscus tear repair x2 Past Anesthesia/Blood Transfusion Reactions: Motion Sickness Type of Cardiac Device: Loop Device Placement Date:: MAR 2009 AND 2013 Past Psychological History: Anxiety, Depression Smoking Status: Former smoker Past Alcohol Use History: None Reported Past Drug Use History: None Reported - Past Family History Mother Family Medical History: Cancer Additional Family Medical History / Comment(s): Uterine cancer, with Covid at age 75. Father Family Medical History: Cancer Additional Family Medical History / Comment(s): Left lung cancer. <Viviane Knapp - Last Filed: 04/13/23 14:25> General Exam Limitations: no limitations <AriaViviane - Last Filed: 04/13/23 14:25> General appearance: alert, in no apparent distress Head exam: Present: atraumatic, normocephalic, normal inspection Eye exam: Present: normal appearance, PERRL, EOMI. Absent: scleral icterus, conjunctival injection, periorbital swelling ENT exam: Present: normal exam, mucous membranes moist Neck exam: Present: normal inspection. Absent: tenderness, meningismus, lymphadenopathy Respiratory exam: Present: normal lung sounds bilaterally. Absent: respiratory distress, wheezes, rales, rhonchi, stridor Cardiovascular Exam: Present: regular rate, normal rhythm, normal heart sounds. Absent: systolic murmur, diastolic murmur, rubs, gallop, clicks GI/Abdominal exam: Present: soft, normal bowel sounds. Absent: distended, tenderness, guarding, rebound, rigid Extremities exam: Present: normal inspection, full ROM, normal capillary refill. Absent: tenderness, pedal edema, joint swelling, calf tenderness Back exam: Present: normal inspection Neurological exam: Present: alert, oriented X3, CN II-XII intact Psychiatric exam: Present: normal affect, normal mood Skin exam: Present: warm, dry, intact, normal color. Absent: rash <Stpehen Sosa - Last Filed: 04/14/23 16:48> - General Exam Comments Initial Comments: Visual Physical Exam Vital signs reviewed General: Well-appearing, nontoxic, no acute distress. Head: Normocephalic, atraumatic Eyes: PERRLA, EOMI ENT: Airway patent Chest: Nonlabored breathing Skin: No visual rash, normal skin tone Neuro: Alert and oriented 3 Musculoskeletal: No gross abnormalities (Viviane Knapp) Course <Stephen Sosa - Last Filed: 04/14/23 16:48> Vital Signs 04/13/23 04/13/23 04/13/23 11:16 16:00 18:00 Temperature 98.4 F 97.8 F Pulse Rate 93 73 75 Respiratory 16 17 17 Rate Blood Pressure 120/80 135/89 125/87 O2 Sat by Pulse 96 98 98 Oximetry 04/13/23 19:05 Temperature 97.9 F Pulse Rate 80 Respiratory 18 Rate Blood Pressure 125/83 O2 Sat by Pulse 96 Oximetry - Reevaluation(s) Reevaluation #1: 04/13/23 17:41 Medical records reviewed (Stephen Sosa) Reevaluation #2: 04/13/23 17:41 Patient remains asymptomatic (Stephen Sosa) Reevaluation #3: 04/13/23 18:55 Patient informed results questions answered (Stephen Sosa) Reevaluation #4: 04/13/23 17:41 Was pt. sent in by a medical professional or institution (, PA, BRONC BUSTER, urgent care, hospital, or shelter...) When possible be specific @ -no Did you speak to anyone other than the patient for history (EMS, parent, family, police, friend...)? What history was obtained from this source @ -no Did you review nursing and triage notes (agree or disagree)? Why? @ -agree Are old charts reviewed (outside hosp., previous admission, EMS record, old EKG, old radiological studies, urgent care reports/EKG's, shelter records)? Report findings @ -yes Differential Diagnosis (chest pain, altered mental status, abdominal pain women, abdominal pain men, vaginal bleeding, weakness, fever, dyspnea, syncope, headache, dizziness, GI bleed, back pain, seizure, CVA, palpatations, mental health, musculoskeletal)? @ -prior EKG interpreted by me (3pts min.). @ -yes X-rays interpreted by me (1pt min.). @ -no CT interpreted by me (1pt min.). @ -yes U/S interpreted by me (1pt. min.). @ -yes What testing was considered but not performed or refused? (CT, X-rays, U/S, labs)? Why? @ -none What meds were considered but not given or refused? Why? @ -none Did you discuss the management of the patient with other professionals (professionals i.e. , PA, [facility] BUSTER, lab, RT, psych nurse, manager social responsibility, manager hematology, teacher, community resource officer, hospice case manager)? Give summary @ -no Was smoking cessation discussed for >3mins.? @ -no Was critical care preformed (if so, how long)? @ -no Were there social determinants of health that impacted care today? How? (Homelessness, low income, unemployed, alcoholism, drug addiction, transportation, low edu. Level, literacy, decrease access to med. care, fci, rehab)? @ -none Was there de-escalation of care discussed even if they declined (Discuss DNR or withdrawal of care, Hospice)? DNR status @ -no What co-morbidities impacted this encounter? (DM, HTN, Smoking, COPD, CAD, Cancer, CVA, ARF, Chemo, Hep., AIDS, mental health diagnosis, sleep apnea, morbid obesity)? @ -none Was patient admitted / discharged? Hospital course, mention meds given and route, prescriptions, significant lab abnormalities, going to OR and other pertinent info. @ - 53 female to the emergency department for evaluation of bilateral visual loss on the shower today. Symptoms resolved after about patient presented to the ER for episode of vision loss. Patient has no recurrent symptoms here in the ER feels well can be discharged home Discharged Undiagnosed new problem with uncertain prognosis? @ -no Drug Therapy requiring intensive monitoring for toxicity (Heparin, Nitro, Insulin, Cardizem)? @ -no Were any procedures done? @ -no Diagnosis/symptom? @ -Syncope, vision loss Acute, or Chronic, or Acute on Chronic? @ -Acute Uncomplicated (without systemic symptoms) or Complicated (systemic symptoms)? @ -Complicated Side effects of treatment? @ -no Exacerbation, Progression, or Severe Exacerbation? @ -exacerbation Poses a threat to life or bodily function? How? (Chest pain, USA, SD, pneumonia, PE, COPD, DKA, ARF, appy, cholecystitis, CVA, Diverticulitis, Homicidal, Suicidal, threat to staff... and all critical care pts) @ -yes (Stephen Sosa) Reevaluation #5: 04/13/23 18:55 Differential CVA Ischemic stroke, hemorrhagic stroke, brain tumor, atypical migraine, Wernicke's encephalopathy, seizure, multiple sclerosis, meningitis, encephalitis, hypoglycemia, Guillain-Mojica, electrolytes disturbance, myasthenia gravis.... This is not meant to be an all-inclusive list (Stephen Sosa) - Consultations Consultation #1: Spoke with Dr. Brown who is okay to see patient in the office this week (Stephen Sosa) EKG Findings - EKG Comments: EKG Findings:: EKG is sinus 79 SC 134 QRS 86 QTc 437 - EKG Results: EKG: interpreted by ERMD <Stephen Sosa - Last Filed: 04/14/23 16:48> Medical Decision Making <Viviane Knapp - Last Filed: 04/13/23 14:25> - Lab Data Result diagrams: 04/13/23 14:34 04/13/23 14:34 - EKG Data -: EKG Interpreted by Me - Radiology Data Radiology results: report reviewed (CT brain CT had neck USleft lower extremity IS NEGATIVE FOR DVT OR COMPUTED TOMOGRAPHY SCAN IS NEGATIVE FOR ACUTE DISEASE), image reviewed <Stephen Sosa - Last Filed: 04/14/23 16:48> - Medical Decision Making I performed the QuickNote portion of this chart - Viviane Knapp PA-C (Viviane Knapp) 53 female to the emergency department for evaluation of bilateral visual loss on the shower today. Symptoms resolved after about patient presented to the ER for episode of vision loss. Patient has no recurrent symptoms here in the ER feels well can be discharged home (Stephen Sosa) - Lab Data Lab Results 04/13/23 04/13/23 04/13/23 Range/Units 14:34 14:34 16:46 WBC 8.0 (3.8-10.6) k/uL RBC 4.50 (3.80-5.40) m/uL Hgb 14.0 (11.4-16.0) gm/dL Hct 41.4 (34.0-46.0) % MCV 92.1 (80.0-100.0) fL MCH 31.1 (25.0-35.0) pg MCHC 33.8 (31.0-37.0) g/dL RDW 12.9 (11.5-15.5) % Plt Count 268 (150-450) k/uL MPV 7.1 Neutrophils % 63 % Lymphocytes % 28 % Monocytes % 4 % Eosinophils % 3 % Basophils % 0 % Neutrophils # 5.0 (1.3-7.7) k/uL Lymphocytes # 2.2 (1.0-4.8) k/uL Monocytes # 0.4 (0-1.0) k/uL Eosinophils # 0.2 (0-0.7) k/uL Basophils # 0.0 (0-0.2) k/uL Sodium 139 (137-145) mmol/L Potassium 4.3 (3.5-5.1) mmol/L Chloride 101 (98-107) mmol/L Carbon Dioxide 29 (22-30) mmol/L Anion Gap 9 mmol/L BUN 10 (7-17) mg/dL Creatinine 0.60 (0.52-1.04) mg/dL Est GFR (CKD-EPI)AfAm >90 (>60 ml/min/1.73 sqM) Est GFR (CKD-EPI)NonAf >90 (>60 ml/min/1.73 sqM) Glucose 92 (74-99) mg/dL POC Glucose (mg/dL) 91 (70-110) mg/dL POC Glu Medical Housekeeper ID Avery Rodriguez Calcium 9.7 (8.4-10.2) mg/dL Total Bilirubin 0.4 (0.2-1.3) mg/dL AST 32 (14-36) U/L ALT 44 H (4-34) U/L Alkaline Phosphatase 86 (38-126) U/L Total Protein 8.5 H (6.3-8.2) g/dL Albumin 4.5 (3.5-5.0) g/dL Disposition <Viviane Knapp - Last Filed: 04/13/23 14:25> Is patient prescribed a controlled substance at d/c from ED?: No Time of Disposition: 18:50 <Stephen Sosa - Last Filed: 04/14/23 16:48> Clinical Impression: Transient cerebral ischemia, Vision loss, bilateral Disposition: HOME SELF-CARE Condition: Fair Instructions (If sedation given, give patient instructions): Transient Ischemic Attack (ED) Referrals: Connor King Jr, [Primary Care Provider] - 1-2 days
[2023-04-13 15:03] LABS: Basophils % (A) 0 %; Eosinophils # (A) 0.2 k/uL (0-0.7); Eosinophils % (A) 3 %; HCT 41.4 % (34.0-46.0); Lymphocytes # (A) 2.2 k/uL (1.0-4.8); Lymphocytes % (A) 28 %; MCH 31.1 pg (25.0-35.0); MCHC 33.8 g/dL (31.0-37.0); MCV 92.1 fL (80.0-100.0); Mean Platelet Volume 7.1; Monocytes # (A) 0.4 k/uL (0-1.0); Monocytes % (A) 4 %; Neutrophils % (A) 63 %; Platelet Count 268 k/uL (150-450); RDW 12.9 % (11.5-15.5)
[2023-04-13 15:18] LABS: ALT 44 U/L (4-34); AST 32 U/L (14-36); African American GFR (CKD) >90 (>60 ml/min/1.73 sqM); Albumin 4.5 g/dL (3.5-5.0); Alkaline Phosphatase 86 U/L (38-126); Anion Gap 9 mmol/L; Blood Urea Nitrogen 10 mg/dL (7-17); Calcium 9.7 mg/dL (8.4-10.2); Carbon Dioxide 29 mmol/L (22-30); Chloride 101 mmol/L (98-107); Glucose 92 mg/dL (74-99); Non-African American GFR(CKD) >90 (>60 ml/min/1.73 sqM); Potassium 4.3 mmol/L (3.5-5.1); Sodium 139 mmol/L (137-145); Total Bilirubin 0.4 mg/dL (0.2-1.3); Total Protein 8.5 g/dL (6.3-8.2)
[2023-04-13] MEDS ORDERED: SODIUM CHLORIDE 0.9% 1,000 ML IV STA (16:02)
[2023-04-13 16:47] LABS: Glucose,Whole Blood 91 mg/dL (70-110)
--- NOTE | 2023-04-13 17:34 | CT ---
EXAMINATION TYPE: CT brain wo con CT DLP: Combined DLP of 1800.1 mGycm, Automated exposure control for dose reduction was used. DATE OF EXAM: 04/13/2023 5:06 PM COMPARISON: 10/16/2021. CLINICAL INDICATION:Female, 53 years old with history of syncope, Vision issues, pt states she was in the shower and everything went all black and she thought thought someone turned the lights off on he r. No vision issues at this time and no c/o a fall. TECHNIQUE: Brain: Axial CT images of the brain were obtained with coronal and sagittal reformats created and rev iewed. Contrast used: None. Oral contrast used: None. FINDINGS: Brain: Extra-axial spaces: No abnormal extra-axial fluid collections. Ventricular system: Within normal limits Cerebral parenchyma: No acute intraparenchymal hemorrhage or mass effect. The suresh-white junction is well differentiated. Cerebellum: Unremarkable. Mass effect: No evidence of midline shift. Intracranial vasculature: unremarkable Soft tissues: Normal. Calvarium/osseous structures: No depressed skull fracture. Paranasal sinuses and mastoid air cells: Mild scattered paranasal sinus disease. Visualized orbits: Orbital contents are intact. IMPRESSION: No acute intracranial process.
--- NOTE | 2023-04-13 17:37 | CT ---
EXAMINATION TYPE: CT angio head neck CT DLP: Combined DLP of 1800.1 mGycm, Automated exposure control for dose reduction was used. DATE OF EXAM: 04/13/2023 5:16 PM COMPARISON: None. CLINICAL INDICATION:Female, 53 years old with history of syncope; PHH, Vision issues, pt states she w as in the shower and everything went all black and she thought somewhat turned the lights off on her. No vision issues at this time and no c/o a fall. TECHNIQUE: Axially acquired helical CT angiogram of the head and neck was obtained with contrast. Axi al images are supplemented with 3D reconstructions which [facility] NASCET criteria used. Contrast used:65 ml mL of Isovue 370 with IV Contrast, Oral contrast used: None. FINDINGS: CTA HEAD: No evidence of acute intracranial hemorrhage, mass effect, or midline shift. The ventricles, sulci, a nd cisterns are unremarkable. The visualized portions of the internal carotid arteries, middle cerebral arteries, anterior cerebral arteries, and posterior cerebral arteries are patent. The basilar and vertebral arteries are patent. CTA NECK: Right Carotid System: The common carotid artery and external carotid artery are patent. The carotid bifurcation demonstrate s no evidence of hemodynamically significant stenosis. The remaining portions of the internal carotid artery demonstrate normal size without significant narrowing. Left Carotid System: The common carotid artery and external carotid artery are patent. The carotid bifurcation demonstrate s no evidence of hemodynamically significant stenosis. The remaining portions of the internal carotid artery demonstrate normal size without significant narrowing. Vertebral arteries are patent without evidence hemodynamically significant stenosis. There is a three-vessel aortic arch. The origins of the great vessels are patent. No evidence of hemo dynamically significant stenosis. IMPRESSION: 1. No evidence of dissection of the cervical internal carotid arteries or vertebral arteries or any e vidence of significant stenosis at the carotid bifurcations. 2. No evidence of intracranial high-grade stenosis or intracranial aneurysm.
--- NOTE | 2023-04-13 18:22 | US ---
EXAMINATION TYPE: US venous doppler duplex LE LT DATE OF EXAM: 04/13/2023 6:02 PM COMPARISON: 06/25/20 CLINICAL INDICATION: Female, 53 years old with history of dvt; history of Right leg DVT, current Left leg posterior calf pain x a few months. Pt. states may be related to her knee which she had operated on. SIDE PERFORMED: Left TECHNIQUE: The lower extremity deep venous system is examined utilizing real time linear array sonog zamzam with graded compression, doppler sonography and color-flow sonography. VESSELS IMAGED: Common Femoral Vein Deep Femoral Vein Greater Saphenous Vein * Femoral Vein Popliteal Vein Small Saphenous Vein * Proximal Calf Veins (* superficial vessels) Left Leg: Negative for DVT IMPRESSION: Grayscale, color doppler, spectral doppler imaging performed of the deep veins of the lo wer extremities. There is normal flow, compressibility, vascular waveforms.
[2023-04-13 19:16] VITALS: BP 125/83; PULSE 80; RESP 18; TEMP 97.9
== END 2023-04-13 19:09 | disposition home or self-care (01) ==
LOC: EC 11:11
DX: G45.9 Transient cerebral ischemic attack, unspecified (principal); I10 Essential (primary) hypertension; E11.9 Type 2 diabetes mellitus without complications; E78.5 Hyperlipidemia, unspecified; F32.A Depression, unspecified; G47.30 Sleep apnea, unspecified; J45.909 Unspecified asthma, uncomplicated; K21.9 Gastro-esophageal reflux disease without esophagitis; M19.90 Unspecified osteoarthritis, unspecified site; Z79.899 Other long term (current) drug therapy; Z91.018 Allergy to other foods; Z87.891 Personal history of nicotine dependence; Z88.1 Allergy status to other antibiotic agents; Z88.8 Allergy status to other drugs, medicaments and biological substances; Z90.49 Acquired absence of other specified parts of digestive tract
CPT/HCPCS: 36415; 93005; 80053; 85025; 93971; 70496; 70450; 70498; 99284; 96360; 96361; Q9967

== ENCOUNTER → 2023-04-27 | Outpatient (CLI) | payer OTHER ==
[2023-04-27 21:38] LABS: ALT 26 U/L (8-44); AST 17 U/L (13-35); Albumin 4.4 d/dL (3.8-4.9); Albumin/Globulin Ratio 1.26 Ratio (1.60-3.17); Alkaline Phosphatase 83 U/L (41-126); Blood Urea Nitrogen 9.1 mg/dL (9.0-27.0); Calcium 9.5 mg/dL (8.7-10.3); Carbon Dioxide 28.3 mmol/L (21.6-31.8); Chloride 101 mmol/L (96-109); Globulin 3.5 d/dL (1.6-3.3); Glucose 99 mg/dL (70-110); Potassium 4.1 mmol/L (3.5-5.5); Sodium 140 mmol/L (135-145); Total Bilirubin <0.2 mg/dL (0.3-1.2); Total Protein 7.9 d/dL (6.2-8.2)
[2023-04-27 22:43] LABS: Microalbumin Creatinine Ratio <10 mg/g Cr (0-30)
== END | disposition home or self-care (01) ==
LOC: LABWHC1 11:43
PROVIDERS: ATTEND Family Medicine
DX: E11.59 Type 2 diabetes mellitus with other circulatory complications (principal)
CPT/HCPCS: 36415; 80053; 82043; 82570

== ENCOUNTER 2023-10-12 08:33 | Emergency (ER) | payer OTHER ==
[2023-10-12] MEDS: DEXAMETHASONE SOD PHOSPHATE 10 MG/ML 1 ML VIAL IM STA (09:07)
[2023-10-12 09:13] VITALS: RESP 18; TEMP 98
[2023-10-12] MEDS: POLYMYXIN B-TRIMETHOPRIM SULF (10,000-1) OPHTH DROPS 10 ML BTL RIGHT EYE STA (09:15)
[2023-10-12] MEDS: LIDOCAINE VISCOUS 2% 15 ML CUP PO ONE (09:16)
--- NOTE | 2023-10-12 09:20 | ED ---
ENT HPI - General Chief complaint: ENT Stated complaint: Sore throat/ R eye issues Time Seen by Provider: 10/12/23 08:46 Source: patient, RN notes reviewed Mode of arrival: ambulatory Limitations: no limitations - History of Present Illness Initial comments: This is a 53-year-old female who presents to the emergency department for a sore throat and right eye drainage. States that the sore throat started about a week ago. It is making it difficult for her to speak and swallow. She has also noticed white patches in her throat. Denies any coughing, congestion, fevers, or chills. The right eye drainage started yesterday. States that her eye was matted shut and she has had green drainage from this. Reports some pain, denies any difficulty with her vision. MD complaint: sore throat - Related Data Home Medications Medication Instructions Recorded Confirmed Omeprazole [PriLOSEC] 20 mg PO BID 04/03/14 04/13/23 Verapamil HCl [Verapamil ER] 120 mg PO DAILY 06/12/16 04/13/23 Gabapentin 300 mg PO BID 06/07/18 04/13/23 HYDROcodone/APAP 10-325MG [[place] 1 tab PO TID PRN 09/19/18 04/13/23 10-325] Oxybutynin ER [Ditropan XL] 15 mg PO DAILY 04/07/19 04/13/23 Losartan [Cozaar] 50 mg PO DAILY 04/21/19 04/13/23 Atorvastatin [Lipitor] 40 mg PO DAILY 01/06/20 04/13/23 Albuterol Sulfate [Ventolin HFA] 2 puff INHALATION RT-QID PRN 03/01/20 04/13/23 Cetirizine HCl [Zyrtec] 10 mg PO DAILY 03/23/22 04/13/23 Citalopram Hydrobromide [CeleXA] 40 mg PO DAILY 03/23/22 04/13/23 Lidocaine/Menthol 1 patch TRANSDERM DAILY PRN 03/23/22 04/13/23 [Lidocaine-Menthol 4%-1% Patch] OXcarbazepine [Oxtellar Xr] 900 mg PO HS 03/23/22 04/13/23 Olopatadine HCl [Patanol 0.1%] 1 drop BOTH EYES BID 03/23/22 04/13/23 diphenhydrAMINE [Benadryl] 25 mg PO QID PRN 04/13/23 04/13/23 Previous Rx's Medication Instructions Recorded Amoxic-Pot Clav 875-125Mg 1 tab PO Q12HR 7 Days #14 tab 10/12/23 [Augmentin 875-125] Nystatin 100,000 Unit/ml Susp 5 ml PO QID 7 Days #473 ml 10/12/23 [Mycostatin Oral Susp] Allergies Allergy/AdvReac Type Severity Reaction Status Date / Time onion Allergy Anaphylaxis Verified 10/12/23 08:41 azithromycin AdvReac Nausea & Verified 10/12/23 08:41 [From Zithromax Z-Brayden] Vomiting ondansetron HCl AdvReac Vomting Verified 10/12/23 08:41 [From Zofran (as w/ODT tab hydrochloride)] only, IV okay Review of Systems ROS Statement: Those systems with pertinent positive or pertinent negative responses have been documented in the HPI. ROS Other: All systems not noted in ROS Statement are negative. Past Medical History Past Medical History: Asthma, CVA/TIA, Diabetes Mellitus, Deep Vein Thrombosis (DVT), GERD/Reflux, Hyperlipidemia, Hypertension, Musculoskeletal Disorder, Osteoarthritis (OA), Seizure Disorder, Sleep Apnea/CPAP/BIPAP Additional Past Medical History / Comment(s): CHRONIC BACK PAIN , DDD, OCCASIONAL SCIATICA, HX OF SHATTERED TAILBONE, CHRONIC CERVICAL PAIN WITH SPURS , grand mal seizure with comprehension issues/loss of memory ever since (2016), "black outs" -no known cause,diverticulitis/colitis, constipation, overactive bladder, kidney stones., LAST SEIZURE 06/25/2103/2019- TIA/stroke october 2019, , shingles, sleep apnea-no home CPAP. palpable enlarged right groin lymph nodes, hypoglycemic episodes, right leg DVT History of Any Multi-Drug Resistant Organisms: MRSA Date of last positivie culture/infection: 12/30/22 MDRO Source:: Scalp Past Surgical History: Appendectomy, Bowel Resection, Cholecystectomy, Heart Catheterization, Orthopedic Surgery, Tubal Ligation, Uterine Ablation Additional Past Surgical History / Comment(s): Bowel resection for colitis/diverticulitis, EGDs, colonoscopies, loop recorder now removed, multiple pain clinic procedures, bilateral rotator cuff surgery, R hand ganglion cyst removed 3 times, tilt table test, MRI with anesthesia d/t claustrophobia., Bilateral BICEP SURGERY, left knee surgery meniscus tear repair x2 Past Anesthesia/Blood Transfusion Reactions: Motion Sickness Type of Cardiac Device: Loop Device Placement Date:: MAR 2009 AND 2013 Past Psychological History: Anxiety, Depression Smoking Status: Former smoker Past Alcohol Use History: None Reported Past Drug Use History: None Reported - Past Family History Mother Family Medical History: Cancer Additional Family Medical History / Comment(s): Uterine cancer, with Covid at age 75. Father Family Medical History: Cancer Additional Family Medical History / Comment(s): Left lung cancer. General Exam Limitations: no limitations General appearance: alert, in no apparent distress Head exam: Present: atraumatic, normocephalic, normal inspection Eye exam: Present: PERRL, EOMI, other (Mild right conjunctival injection with matting of the eyelids. No pain with extraocular movements.). Absent: periorbital swelling, periorbital tenderness ENT exam: Present: other (Posterior pharyngeal erythema with tonsillar hypertrophy and exudates. White patches on the tongue) Respiratory exam: Present: normal lung sounds bilaterally. Absent: respiratory distress, wheezes, rales, rhonchi, stridor Cardiovascular Exam: Present: regular rate, normal rhythm, normal heart sounds. Absent: systolic murmur, diastolic murmur, rubs, gallop, clicks Neurological exam: Present: alert, oriented X3, CN II-XII intact Psychiatric exam: Present: normal affect, normal mood Skin exam: Present: warm, dry, intact, normal color. Absent: rash Course Vital Signs 10/12/23 10/12/23 08:39 11:41 Temperature 98 F 98 F Pulse Rate 109 H 97 Respiratory 18 18 Rate Blood Pressure 145/95 131/79 O2 Sat by Pulse 98 98 Oximetry Medical Decision Making - Medical Decision Making This is a 53-year-old female who presents to the emergency department for a sore throat and eye drainage. Was pt. sent in by a medical professional or institution? @ -No Did you speak to anyone other than the patient for history? @ -No Did you review nursing and triage notes? @ -Yes, and I agree, it is accurate with regards to the patient's symptoms. Were old charts reviewed? @ -No Differential Diagnosis? @ -Differential Sore Throat: Strep pharyngitis, herpes zoster, COVID, influenza, GERD, allergic rhinitis, mononucleosis, this is not meant to be an all-inclusive list. EKG interpreted by me (3pts min.)? @ -Not obtained X-rays interpreted by me (1pt min.)? @ -Not obtained CT interpreted by me (1pt min.)? @ -Not obtained U/S interpreted by me (1pt. min.)? @ -Not obtained What testing was considered but not performed? (CT, X-rays, U/S, labs)? Why? @ -None What meds were considered but not given? Why? @ -None Did you discuss the management of the patient with other professionals? @ -No Did you reconcile home meds? @ -No Was smoking cessation discussed for >3mins.? @ -No Was critical care preformed (if so, how long)? @ -No Were there social determinants of health that impacted care today? How? (Homelessness, low income, unemployed, alcoholism, drug addiction, transportation, low edu. Level, literacy, decrease access to med. care, care home, rehab)? @ -No Was there de-escalation of care discussed even if they declined? (Discuss DNR or withdrawal of care, Hospice)? @ -No What co-morbidities impacted this encounter? (DM, HTN, Smoking, COPD, CAD, Cancer, CVA, Hep., AIDS, mental health diagnosis, sleep apnea, morbid obesity)? @ -DM, GERD Was patient admitted / discharged? @ -Discharged. Rapid strep test negative. COVID, influenza, and RSV testing were negative. However, given the persistence of the sore throat and physical examination consistent with strep pharyngitis, will treat patient with antibiotics due to the possibility of culture coming back positive. Physical examination also consistent with a right conjunctivitis and oral thrush. Prescription for Augmentin and oral nystatin provided with dosing instructions reviewed. Polytrim drops administered in the emergency department. Patient discharged home in stable condition and advised to follow-up with her primary care provider. Undiagnosed new problem with uncertain prognosis? @ -None Drug Therapy requiring intensive monitoring for toxicity (Heparin, Nitro, Insulin, Cardizem)? @ -None Were any procedures done? @ -None Diagnosis/symptom? @ -Pharyngitis, conjunctivitis, oral candidiasis Acute, or Chronic, or Acute on Chronic? @ -Acute Uncomplicated (without systemic symptoms) or Complicated (systemic symptoms)? @ -Uncomplicated Side effects of treatment? @ -None Exacerbation, Progression, or Severe Exacerbation] @ -Not applicable Poses a threat to life or bodily function? @ No Return precautions reviewed in depth, the patient is instructed to return to the emergency department with any new, worsening, or concerning symptoms. Patient verbalized understanding. This case was discussed in detail with the attending ED physician, Dr. Tejada. Presentation, findings, and treatment plan discussed in detail as well. - Lab Data Lab Results 10/12/23 10/12/23 Range/Units 08:57 08:57 Influenza Type A (PCR) Not Detected (Not Detectd) Influenza Type B (PCR) Not Detected (Not Detectd) RSV (PCR) Not Detected (Not Detectd) SARS-CoV-2 (PCR) Not Detected (Not Detectd) Group A Strep (PCR) NOT DETECTED (Not Detectd) Disposition Clinical Impression: Pharyngitis, Conjunctivitis, Thrush Disposition: HOME SELF-CARE Instructions (If sedation given, give patient instructions): Pharyngitis (ED), Oral Candidiasis (ED), Conjunctivitis (ED) Additional Instructions: Return to the emergency department with any new, worsening, or concerning symptoms. Take the antibiotic as prescribed for 7 days. Use the oral nystatin 4 times daily for 7 days. Use this longer if symptoms persist. Use the eyedrops provided as 2 drops to the right eye every 6 hours for 7 days. Alternate with ibuprofen and Tylenol as needed for pain relief. Follow up with your primary care provider in 1-2 days. Prescriptions: Amoxic-Pot Clav 875-125Mg [Augmentin 875-125] 1 tab PO Q12HR 7 Days #14 tab Nystatin 100,000 Unit/ml Susp [Mycostatin Oral Susp] 5 ml PO QID 7 Days #473 ml Is patient prescribed a controlled substance at d/c from ED?: No Referrals: Connor King Jr, DO [Primary Care Provider] - 1-2 days Time of Disposition: 11:01
[2023-10-12] MEDS: PENICILLIN G BENZATHINE 1,200,000 UNIT/2 ML SYRINGE IM STA (11:39)
[2023-10-12 12:12] VITALS: BP 131/79; PULSE 97
== END 2023-10-12 11:43 | disposition home or self-care (01) ==
LOC: EC 08:33
DX: B37.9 Candidiasis, unspecified (principal); J02.9 Acute pharyngitis, unspecified; H10.9 Unspecified conjunctivitis; Z87.891 Personal history of nicotine dependence; Z91.018 Allergy to other foods; Z88.8 Allergy status to other drugs, medicaments and biological substances
CPT/HCPCS: 87651; 87636; 99283; 96372 ×2; J0561; J1100

== ENCOUNTER → 2024-02-27 | Outpatient (CLI) | payer OTHER ==
--- NOTE | 2024-02-27 13:35 | XR ---
EXAMINATION TYPE: XR ankle complete RT DATE OF EXAM: 02/27/2024 COMPARISON: NONE HISTORY: Pain FINDINGS: Three views of the ankle demonstrate the ankle mortise to be intact and symmetric. The joint spaces are preserved. The osseous structures are intact. Enthesophyte involving the calcaneus. IMPRESSION: 1. No definite acute fracture or dislocation, if symptoms persist follow-up study in 7 to 10 days wou ld be suggested.
--- NOTE | 2024-02-27 13:37 | XR ---
EXAMINATION TYPE: XR foot complete RT DATE OF EXAM: 02/27/2024 COMPARISON: NONE HISTORY: Pain TECHNIQUE: Three views are submitted. FINDINGS: The osseous structures are intact. There is no acute fracture or dislocation. Mild hypertrophic ar thropathy first MTP. Calcaneal spurring. IMPRESSION: 1. No acute fracture or dislocation. If symptoms persist, follow-up exam in 7 to 10 days could be ob tained.
== END | disposition home or self-care (01) ==
LOC: RADXRMAIN 13:11
PROVIDERS: ATTEND Family Medicine
DX: M25.571 Pain in right ankle and joints of right foot (principal)

== ENCOUNTER 2024-08-26 19:46 | Emergency (ER) | payer OTHER ==
--- NOTE | 2024-08-26 20:14 | ED ---
Female Urogenital HPI - General Source: patient, family, RN notes reviewed Mode of arrival: wheelchair Limitations: no limitations - History of Present Illness Onset/Timin -: days(s) Radiation: R flank <Abdelrahman Gill - Last Filed: 08/26/24 23:47> <Kiko Jimenez - Last Filed: 08/27/24 01:04> - General Stated complaint: Back Pain/Pressure Time Seen by Provider: 08/26/24 20:00 - History of Present Illness Initial comments: This is a 54-year-old female with history of CVA, DM and bowel resection presenting with for decreased urinary output x 3 days. Patient endorses going to urgent care where she was diagnosed with a UTI and later told she had a kidney infection. States she was prescribed cefdinir and Keflex with minimal relief. Endorses right flank pain with associated chills and sweating. Patient is also concerned that she has a possible kidney stone despite having no history. Denies fever, dizziness, chest pain, and dyspnea, abdominal pain, N/V/D, dysuria, hematuria. (Abdelrahman Gill) - Related Data Home Medications Medication Instructions Recorded Confirmed Omeprazole [PriLOSEC] 20 mg PO BID 04/03/14 04/13/23 Verapamil HCl [Verapamil ER] 120 mg PO DAILY 06/12/16 04/13/23 Gabapentin 300 mg PO BID 06/07/18 04/13/23 HYDROcodone/APAP 10-325MG [[place] 1 tab PO TID PRN 09/19/18 04/13/23 10-325] Oxybutynin ER [Ditropan XL] 15 mg PO DAILY 04/07/19 04/13/23 Losartan [Cozaar] 50 mg PO DAILY 04/21/19 04/13/23 Atorvastatin [Lipitor] 40 mg PO DAILY 01/06/20 04/13/23 Albuterol Sulfate [Ventolin HFA] 2 puff INHALATION RT-QID PRN 03/01/20 04/13/23 Cetirizine HCl [Zyrtec] 10 mg PO DAILY 03/23/22 04/13/23 Citalopram Hydrobromide [CeleXA] 40 mg PO DAILY 03/23/22 04/13/23 Lidocaine/Menthol 1 patch TRANSDERM DAILY PRN 03/23/22 04/13/23 [Lidocaine-Menthol 4%-1% Patch] OXcarbazepine [Oxtellar Xr] 900 mg PO HS 03/23/22 04/13/23 Olopatadine HCl [Patanol 0.1%] 1 drop BOTH EYES BID 03/23/22 04/13/23 diphenhydrAMINE [Benadryl] 25 mg PO QID PRN 04/13/23 04/13/23 Previous Rx's Medication Instructions Recorded Amoxic-Pot Clav 875-125Mg 1 tab PO Q12HR 7 Days #14 tab 10/12/23 [Augmentin 875-125] Nystatin 100,000 Unit/ml Susp 5 ml PO QID 7 Days #473 ml 10/12/23 [Mycostatin Oral Susp] Allergies Allergy/AdvReac Type Severity Reaction Status Date / Time onion Allergy Anaphylaxis Verified 08/26/24 20:08 azithromycin AdvReac Nausea & Verified 08/26/24 20:08 [From Zithromax Z-Brayden] Vomiting ondansetron HCl AdvReac Vomting Verified 08/26/24 20:08 [From Zofran (as w/ODT tab hydrochloride)] only, IV okay Review of Systems ROS Other: All systems not noted in ROS Statement are negative. <Abdelrahman Gill - Last Filed: 08/26/24 23:47> ROS Other: All systems not noted in ROS Statement are negative. <Kiko Jimenez - Last Filed: 08/27/24 01:04> ROS Statement: Those systems with pertinent positive or pertinent negative responses have been documented in the HPI. Past Medical History Past Medical History: Asthma, CVA/TIA, Diabetes Mellitus, Deep Vein Thrombosis ( DVT), GERD/Reflux, Hyperlipidemia, Hypertension, Musculoskeletal Disorder, Osteoarthritis (OA), Seizure Disorder, Sleep Apnea/CPAP/BIPAP Additional Past Medical History / Comment(s): CHRONIC BACK PAIN , DDD, OCCASIONAL SCIATICA, HX OF SHATTERED TAILBONE, CHRONIC CERVICAL PAIN WITH SPURS , grand mal seizure with comprehension issues/loss of memory ever since (2016), "black outs" -no known cause,diverticulitis/colitis, constipation, overactive bladder, kidney stones., LAST SEIZURE 06/25/2103/2019- TIA/stroke october 2019, , shingles, sleep apnea-no home CPAP. palpable enlarged right groin lymph nodes, hypoglycemic episodes, right leg DVT History of Any Multi-Drug Resistant Organisms: MRSA Date of last positivie culture/infection: 12/30/22 MDRO Source:: Scalp Past Surgical History: Appendectomy, Bowel Resection, Cholecystectomy, Heart Catheterization, Orthopedic Surgery, Tubal Ligation, Uterine Ablation Additional Past Surgical History / Comment(s): Bowel resection for colitis/diverticulitis, EGDs, colonoscopies, loop recorder now removed, multiple pain clinic procedures, bilateral rotator cuff surgery, R hand ganglion cyst removed 3 times, tilt table test, MRI with anesthesia d/t claustrophobia., Bilateral BICEP SURGERY, left knee surgery meniscus tear repair x2 Past Anesthesia/Blood Transfusion Reactions: Motion Sickness Type of Cardiac Device: Loop Device Placement Date:: MAR 2009 AND 2013 Past Psychological History: Anxiety, Depression Smoking Status: Former smoker Past Alcohol Use History: None Reported Past Drug Use History: None Reported - Past Family History Mother Family Medical History: Cancer Additional Family Medical History / Comment(s): Uterine cancer, with Covid at age 75. Father Family Medical History: Cancer Additional Family Medical History / Comment(s): Left lung cancer. <Abdelrahman Gill - Last Filed: 08/26/24 23:47> General Exam General appearance: alert, in no apparent distress Head exam: Present: atraumatic, normocephalic, normal inspection Eye exam: Present: normal appearance, PERRL, EOMI. Absent: scleral icterus, conjunctival injection, periorbital swelling ENT exam: Present: normal exam, mucous membranes moist Neck exam: Present: normal inspection. Absent: tenderness, meningismus, lymphadenopathy Respiratory exam: Present: normal lung sounds bilaterally. Absent: respiratory distress, wheezes, rales, rhonchi, stridor Cardiovascular Exam: Present: regular rate, normal rhythm, normal heart sounds. Absent: systolic murmur, diastolic murmur, rubs, gallop, clicks GI/Abdominal exam: Present: soft, normal bowel sounds. Absent: distended, tenderness, guarding, rebound, rigid Extremities exam: Present: normal inspection, full ROM, normal capillary refill. Absent: tenderness, pedal edema, joint swelling, calf tenderness Back exam: Present: normal inspection, paraspinal tenderness (Positive right lower paralumbar muscle spasm and tenderness). Absent: CVA tenderness (R), CVA tenderness (L) Neurological exam: Present: alert, oriented X3, CN II-XII intact Psychiatric exam: Present: normal affect, normal mood Skin exam: Present: warm, dry, intact, normal color. Absent: rash <BridgetAbdelrahman - Last Filed: 08/26/24 23:47> Course Vital Signs 08/26/24 08/26/24 20:08 22:34 Temperature 98.3 F 97.8 F Pulse Rate 90 79 Respiratory 18 17 Rate Blood Pressure 118/79 113/74 O2 Sat by Pulse 97 99 Oximetry Medical Decision Making - Lab Data Result diagrams: 08/26/24 21:04 <Abdelrahman Gill - Last Filed: 08/26/24 23:47> - Lab Data Result diagrams: 08/26/24 21:04 08/26/24 23:45 <Kiko Jimenez - Last Filed: 08/27/24 01:04> - Medical Decision Making Was pt. sent in by a medical professional or institution (Dr. PA, [employer], urgent care, hospital, or correction...) When possible be specific @ -[No] Did you speak to anyone other than the patient for history (EMS, parent, family, police, friend...)? What history was obtained from this source @ - provided majority of HPI Did you review nursing and triage notes (agree or disagree)? Why? @ -[I reviewed and agree with nursing and triage notes] Were old charts reviewed (outside hosp., previous admission, EMS record, old EKG, old radiological studies, urgent care reports/EKG's, correction records)? Report findings @ -[No old charts were reviewed] Differential Diagnosis (chest pain, altered mental status, abdominal pain women, abdominal pain men, vaginal bleeding, weakness, fever, dyspnea, syncope, headache, dizziness, GI bleed, back pain, seizure, CVA, palpatations, mental health, musculoskeletal)? @ -Differential Back Pain: Strain, zoster, cauda equina syndrome, epidural abscess, vertebral osteomyelitis, discitis, fracture, subluxation, disc herniation, DJD, spinal stenosis, dissection, AAA, pancreatitis, peptic ulcer disease, pyelonephritis, kidney stone, this is not meant to be an all-inclusive list. EKG interpreted by me (3pts min.). @ -Not done X-rays interpreted by me (1pt min.). @ -[None done] CT interpreted by me (1pt min.). @ -[None done] U/S interpreted by me (1pt. min.). @ -[None done] What testing was considered but not performed or refused? (CT, X-rays, U/S, labs)? Why? @ -[None] What meds were considered but not given or refused? Why? @ -[None] Did you discuss the management of the patient with other professionals (professionals i.e. , PA, [employer], lab, RT, psych nurse, manager social work, bar machine operator, te acher, nuclear medicine officer, family preservation caseworker)? Give summary @ -[No] Was smoking cessation discussed for >3mins.? @ -[No] Was critical care preformed (if so, how long)? @ -[No] Were there social determinants of health that impacted care today? How? (Homelessness, low income, unemployed, alcoholism, drug addiction, transportation, low edu. Level, literacy, decrease access to med. care, long term, rehab)? @ -[No] Was there de-escalation of care discussed even if they declined (Discuss DNR or withdrawal of care, Hospice)? DNR status @ -[No] What co-morbidities impacted this encounter? (DM, HTN, Smoking, COPD, CAD, Cancer, CVA, ARF, Chemo, Hep., AIDS, mental health diagnosis, sleep apnea, morbid obesity)? @ -[None] Was patient admitted / discharged? Hospital course, mention meds given and route, prescriptions, significant lab abnormalities, going to OR and other pertinent info. @ -[hospital course] Undiagnosed new problem with uncertain prognosis? @ -[No] Drug Therapy requiring intensive monitoring for toxicity (Heparin, Nitro, Insulin, Cardizem)? @ -[No] Were any procedures done? @ -[No] Diagnosis/symptom? @ -Paralumbar muscle spasm Acute, or Chronic, or Acute on Chronic? @ -Acute Uncomplicated (without systemic symptoms) or Complicated (systemic symptoms)? @ -Complicated Side effects of treatment? @ -[No] Exacerbation, Progression, or Severe Exacerbation? @ -[No] Poses a threat to life or bodily function? How? (Chest pain, [place], [place], pneumonia, PE, COPD, DKA, ARF, appy, cholecystitis, CVA, Diverticulitis, Homicidal, Suicidal, threat to staff... and all critical care pts) @ -[No] (Abdelrahman Gill) Diagnosis/symptom? @ -Abdominal pain constipation Acute, or Chronic, or Acute on Chronic? @ -Acute Uncomplicated (without systemic symptoms) or Complicated (systemic symptoms)? @ -Uncomplicated Side effects of treatment? @ -None Exacerbation, Progression, or Severe Exacerbation] @ -No Poses a threat to life or bodily function? @ -No (Kiko Jimenez) - Lab Data Lab Results 08/26/24 08/26/24 08/26/24 Range/Units 21:04 22:34 23:45 WBC 7.7 (3.8-10.6) k/uL RBC 4.26 (3.80-5.40) m/uL Hgb 13.2 (11.4-16.0) gm/dL Hct 39.4 (34.0-46.0) % MCV 92.7 (80.0-100.0) fL MCH 31.1 (25.0-35.0) pg MCHC 33.5 (31.0-37.0) g/dL RDW 13.0 (11.5-15.5) % Plt Count 254 (150-450) k/uL MPV 7.5 Neutrophils % 57 % Lymphocytes % 32 % Monocytes % 5 % Eosinophils % 5 % Basophils % 1 % Neutrophils # 4.4 (1.3-7.7) k/uL Lymphocytes # 2.4 (1.0-4.8) k/uL Monocytes # 0.4 (0-1.0) k/uL Eosinophils # 0.3 (0-0.7) k/uL Basophils # 0.0 (0-0.2) k/uL Sodium 137 (137-145) mmol/L Potassium 4.2 (3.5-5.1) mmol/L Chloride 97 L (98-107) mmol/L Carbon Dioxide 34 H (22-30) mmol/L Anion Gap 6 mmol/L BUN 14 (7-17) mg/dL Creatinine 0.60 (0.52-1.04) mg/dL Est GFR (CKD-EPI)AfAm >90 (>60 ml/min/1.73 sqM) Est GFR (CKD-EPI)NonAf >90 (>60 ml/min/1.73 sqM) Glucose 91 (74-99) mg/dL Calcium 9.0 (8.4-10.2) mg/dL Total Bilirubin 0.3 (0.2-1.3) mg/dL AST 23 (14-36) U/L ALT 33 (4-34) U/L Alkaline Phosphatase 79 (38-126) U/L Total Protein 7.6 (6.3-8.2) g/dL Albumin 4.3 (3.5-5.0) g/dL Urine Color Light Yellow Urine Appearance Clear (Clear) Urine pH 6.0 (5.0-8.0) Ur Specific [place] 1.022 (1.001-1.035) Urine Protein Negative (Negative) Urine Glucose (UA) Negative (Negative) Urine Ketones Negative (Negative) Urine Blood Negative (Negative) Urine Nitrite Negative (Negative) Urine Bilirubin Negative (Negative) Urine Urobilinogen <2.0 (<2.0) mg/dL Ur Leukocyte Esterase Negative (Negative) Disposition Is patient prescribed a controlled substance at d/c from ED?: No Time of Disposition: 23:38 <Abdelrahman Gill - Last Filed: 08/26/24 23:47> <Kiko Jimenez - Last Filed: 08/27/24 01:04> Clinical Impression: Abdominal pain, Constipation, Acute back pain Disposition: HOME SELF-CARE Condition: Good Instructions (If sedation given, give patient instructions): Abdominal Pain (ED) Additional Instructions: Heat, gentle massage for muscle spasm. MiraLAX once daily and prune juice for any constipation. Advised follow-up with PCP for ongoing management of symptoms. Referrals: Connor King Jr, DO [Primary Care Provider] - 1-2 days
--- NOTE | 2024-08-26 20:34 | CT ---
EXAMINATION TYPE: CT abdomen pelvis wo con DATE OF EXAM: 08/26/2024 8:24 PM COMPARISON: 10/16/2021 CLINICAL INDICATION: Female, 54 years old with history of Right flank pain; Right flank pain. kidney infection recently. TECHNIQUE: Axial CT abdomen pelvis wo con;Sagittal and coronal reformats were created on a separate workstation. Contrast used: mL of , (none if empty) Oral contrast used: without Oral Contrast (none if empty) CT DLP: 670.8 mGycm, Automated exposure control for dose reduction was used. FINDINGS: LOWER CHEST: Left lower lobe 9 mm subpleural nodule. Right middle lobe 2 mm nodule. These are stable from 10/16/2021 ABDOMEN LIVER: Unremarkable GALLBLADDER AND BILE DUCTS: The gallbladder is surgically absent. PANCREAS: Unremarkable. SPLEEN: Unremarkable. ADRENAL GLANDS: Unremarkable. KIDNEYS AND URETERS: No evidence of hydronephrosis or renal calculus. The ureters are unremarkable. PELVIS BLADDER: No evidence for wall thickening or mass given limitations of exam. REPRODUCTIVE: Unremarkable. ABDOMEN & PELVIS STOMACH AND BOWEL: No evidence of bowel obstruction. Scattered colonic diverticula. Postsurgical jain ges to the sigmoid colon. Moderate amount stool throughout the colon. The appendix is not definitivel y visualized. PERITONEUM/RETROPERITONEUM: No evidence of pneumoperitoneum or free fluid. VASCULATURE: No evidence of aortic aneurysm. MUSCULOSKELETAL: No acute osseous abnormalities. Mild disc degeneration changes are present throughou t the thoracolumbar spine. Anterolisthesis of L4 on L5. Marked severe degeneration of the facet joint s in the lower spine. LYMPH NODES: No gross evidence for lymphadenopathy. SOFT TISSUE/ABDOMINAL WALL: Unremarkable IMPRESSION: 1. No evidence for acute right-sided process. There is large amount stool in the cecum. The appendix is not visualized and may be surgically absent. No evidence for obstructive uropathy or renal calcul us. 2. Colonic diverticulosis. [facility], , 08/26/2024 8:32 PM
[2024-08-26 21:21] LABS: Basophils % (A) 1 %; Eosinophils # (A) 0.3 k/uL (0-0.7); Eosinophils % (A) 5 %; HCT 39.4 % (34.0-46.0); HGB 13.2 gm/dL (11.4-16.0); Lymphocytes # (A) 2.4 k/uL (1.0-4.8); Lymphocytes % (A) 32 %; MCH 31.1 pg (25.0-35.0); MCHC 33.5 g/dL (31.0-37.0); MCV 92.7 fL (80.0-100.0); Mean Platelet Volume 7.5; Monocytes # (A) 0.4 k/uL (0-1.0); Monocytes % (A) 5 %; Neutrophils # (A) 4.4 k/uL (1.3-7.7); Neutrophils % (A) 57 %; Platelet Count 254 k/uL (150-450); RBC 4.26 m/uL (3.80-5.40); WBC 7.7 k/uL (3.8-10.6)
[2024-08-26 22:37] VITALS: TEMP 97.8
[2024-08-26] MEDS: KETOROLAC 15 MG/ML 1 ML VIAL IM STA (22:37)
[2024-08-26] MEDS: ORPHENADRINE 30 MG/ML 2 ML VIAL IM STA (22:39)
[2024-08-26 22:49] LABS: Appearance,Urine Clear (Clear); Color,Urine Light Yellow; Glucose,Urine (UA) Negative (Negative); Protein,Urine Negative (Negative); Specific Gravity,Urine 1.022 (1.001-1.035)
[2024-08-26 22:50] LABS: Bilirubin,Urine Negative (Negative); Blood,Urine Negative (Negative); Ketones,Urine Negative (Negative); Leukocyte Esterase,Urine Negative (Negative); Nitrite,Urine Negative (Negative); Urobilinogen,Urine <2.0 mg/dL (<2.0)
[2024-08-26] MEDS: KETOROLAC 15 MG/ML 1 ML VIAL IVP STA (23:57)
[2024-08-27 01:00] LABS: ALT 33 U/L (4-34); AST 23 U/L (14-36); African American GFR (CKD) >90 (>60 ml/min/1.73 sqM); Albumin 4.3 g/dL (3.5-5.0); Alkaline Phosphatase 79 U/L (38-126); Anion Gap 6 mmol/L; Blood Urea Nitrogen 14 mg/dL (7-17); Carbon Dioxide 34 mmol/L (22-30); Chloride 97 mmol/L (98-107); Glucose 91 mg/dL (74-99); Non-African American GFR(CKD) >90 (>60 ml/min/1.73 sqM); Potassium 4.2 mmol/L (3.5-5.1); Sodium 137 mmol/L (137-145); Total Bilirubin 0.3 mg/dL (0.2-1.3); Total Protein 7.6 g/dL (6.3-8.2)
[2024-08-27 01:31] VITALS: BP 138/88; PULSE 81; RESP 18
== END 2024-08-27 01:31 | disposition home or self-care (01) ==
LOC: EC 19:46
DX: K59.00 Constipation, unspecified (principal); M54.50 Low back pain, unspecified; Z88.1 Allergy status to other antibiotic agents; Z88.8 Allergy status to other drugs, medicaments and biological substances; Z91.018 Allergy to other foods; Z87.891 Personal history of nicotine dependence; Z86.73 Personal history of transient ischemic attack (TIA), and cerebral infarction without residual deficits
CPT/HCPCS: 36415; 85025; 81003; 74176; 99284; 96374; 96372 ×2; J2360; J1885; 80053

== ENCOUNTER 2024-09-11 04:10 | Emergency (ER) | payer OTHER ==
[2024-09-11] MEDS: MORPHINE SULFATE 4 MG/ML SYRINGE IV STA (04:56)
--- NOTE | 2024-09-11 04:56 | ED ---
Abdominal Pain HPI - General Source: patient Mode of arrival: wheelchair - History of Present Illness Complaint: abdominal pain -: hour(s) Location: suprapubic Radiation: none Migration to: no migration Severity: severe Quality: cramping, aching Consistency: constant Improves With: nothing Worsens With: nothing Associated Symptoms: hematuria <Betito Dickens - Last Filed: 09/11/24 04:53> <David Martines - Last Filed: 09/11/24 08:05> - General Chief Complaint: Abdominal Pain Stated Complaint: Urogenital Time Seen by Provider: 09/11/24 04:26 - History of Present Illness Initial Comments: This patient is a 54-year-old woman who presents evaluation of low abdominal/pelvic pain and hematuria that has been going on since hours ago. Patient states she has chronic pains, she had been evaluated here for similar symptoms in early August. At that time she was diagnosed with abdominal pain and constipation. She was started on Linzess by her primary physician and states that it seemed to be bringing on some bowel movements and she had felt better. Tonight the pains recurred and she has been passing blood with urination. No fever or chills. No vomiting. (Betito Dickens) - Related Data Home Medications Medication Instructions Recorded Confirmed Omeprazole [PriLOSEC] 20 mg PO BID 04/03/14 04/13/23 Verapamil HCl [Verapamil ER] 120 mg PO DAILY 06/12/16 04/13/23 Gabapentin 300 mg PO BID 06/07/18 04/13/23 HYDROcodone/APAP 10-325MG [[place] 1 tab PO TID PRN 09/19/18 04/13/23 10-325] Oxybutynin ER [Ditropan XL] 15 mg PO DAILY 04/07/19 04/13/23 Losartan [Cozaar] 50 mg PO DAILY 04/21/19 04/13/23 Atorvastatin [Lipitor] 40 mg PO DAILY 01/06/20 04/13/23 Albuterol Sulfate [Ventolin HFA] 2 puff INHALATION RT-QID PRN 03/01/20 04/13/23 Cetirizine HCl [Zyrtec] 10 mg PO DAILY 03/23/22 04/13/23 Citalopram Hydrobromide [CeleXA] 40 mg PO DAILY 03/23/22 04/13/23 Lidocaine/Menthol 1 patch TRANSDERM DAILY PRN 03/23/22 04/13/23 [Lidocaine-Menthol 4%-1% Patch] OXcarbazepine [Oxtellar Xr] 900 mg PO HS 03/23/22 04/13/23 Olopatadine HCl [Patanol 0.1%] 1 drop BOTH EYES BID 03/23/22 04/13/23 diphenhydrAMINE [Benadryl] 25 mg PO QID PRN 04/13/23 04/13/23 Previous Rx's Medication Instructions Recorded Amoxic-Pot Clav 875-125Mg 1 tab PO Q12HR 7 Days #14 tab 10/12/23 [Augmentin 875-125] Nystatin 100,000 Unit/ml Susp 5 ml PO QID 7 Days #473 ml 10/12/23 [Mycostatin Oral Susp] Sulfamethox-Tmp 800-160Mg [Bactrim 1 each PO Q12HR #20 tab 09/11/24 DS 800-160 mg] Allergies Allergy/AdvReac Type Severity Reaction Status Date / Time onion Allergy Anaphylaxis Verified 09/11/24 04:21 azithromycin AdvReac Nausea & Verified 09/11/24 04:21 [From Zithromax Z-Brayden] Vomiting ondansetron HCl AdvReac Vomting Verified 09/11/24 04:21 [From Zofran (as w/ODT tab hydrochloride)] only, IV okay Review of Systems ROS Other: All systems not noted in ROS Statement are negative. Constitutional: Denies: fever, chills, weakness Respiratory: Denies: cough, dyspnea Cardiovascular: Denies: chest pain, palpitations Gastrointestinal: Reports: abdominal pain. Denies: nausea, vomiting, diarrhea Genitourinary: Denies: dysuria, hematuria Musculoskeletal: Denies: back pain Skin: Denies: rash Neurological: Denies: headache, weakness, numbness <Betito Dickens - Last Filed: 09/11/24 04:53> ROS Other: All systems not noted in ROS Statement are negative. <David Martines - Last Filed: 09/11/24 08:05> ROS Statement: Those systems with pertinent positive or pertinent negative responses have been documented in the HPI. Past Medical History Past Medical History: Asthma, CVA/TIA, Diabetes Mellitus, Deep Vein Thrombosis (DVT), GERD/Reflux, Hyperlipidemia, Hypertension, Musculoskeletal Disorder, Osteoarthritis (OA), Seizure Disorder, Sleep Apnea/CPAP/BIPAP Additional Past Medical History / Comment(s): CHRONIC BACK PAIN , DDD, OCCASIONAL SCIATICA, HX OF SHATTERED TAILBONE, CHRONIC CERVICAL PAIN WITH SPURS , grand mal seizure with comprehension issues/loss of memory ever since (2016), "black outs" -no known cause,diverticulitis/colitis, constipation, overactive bladder, kidney stones., LAST SEIZURE 06/25/2103/2019- TIA/stroke october 2019, , shingles, sleep apnea-no home CPAP. palpable enlarged right groin lymph nodes, hypoglycemic episodes, right leg DVT History of Any Multi-Drug Resistant Organisms: MRSA Date of last positivie culture/infection: 12/30/22 MDRO Source:: Scalp Past Surgical History: Appendectomy, Bowel Resection, Cholecystectomy, Heart Catheterization, Orthopedic Surgery, Tubal Ligation, Uterine Ablation Additional Past Surgical History / Comment(s): Bowel resection for colitis/diverticulitis, EGDs, colonoscopies, loop recorder now removed, multiple pain clinic procedures, bilateral rotator cuff surgery, R hand ganglion cyst removed 3 times, tilt table test, MRI with anesthesia d/t claustrophobia., Bilateral BICEP SURGERY, left knee surgery meniscus tear repair x2 Past Anesthesia/Blood Transfusion Reactions: Motion Sickness Type of Cardiac Device: Loop Device Placement Date:: MAR 2009 AND 2013 Past Psychological History: Anxiety, Depression Smoking Status: Former smoker Past Alcohol Use History: None Reported Past Drug Use History: None Reported - Past Family History Mother Family Medical History: Cancer Additional Family Medical History / Comment(s): Uterine cancer, with Covid at age 75. Father Family Medical History: Cancer Additional Family Medical History / Comment(s): Left lung cancer. <MariBetito perry - Last Filed: 09/11/24 04:53> General Exam General appearance: alert, in no apparent distress Head exam: Present: atraumatic, normocephalic Eye exam: Present: normal appearance. Absent: scleral icterus, conjunctival injection Neck exam: Present: normal inspection, full ROM Respiratory exam: Present: normal lung sounds bilaterally. Absent: respiratory distress, wheezes, rales, rhonchi, stridor Cardiovascular Exam: Present: regular rate, normal rhythm, normal heart sounds. Absent: systolic murmur, diastolic murmur, rubs, gallop GI/Abdominal exam: Present: soft. Absent: distended, tenderness, guarding, rebound, rigid, mass Extremities exam: Present: normal inspection, normal capillary refill. Absent: pedal edema, calf tenderness Back exam: Present: normal inspection. Absent: CVA tenderness (R), CVA tenderness (L) Neurological exam: Present: alert Skin exam: Present: warm, dry, intact, normal color. Absent: rash <Betito Dickens - Last Filed: 09/11/24 04:53> Course Vital Signs 09/11/24 04:15 Temperature 97.9 F Pulse Rate 105 H Respiratory 22 Rate Blood Pressure 136/93 O2 Sat by Pulse 100 Oximetry Medical Decision Making - Lab Data Result diagrams: 09/11/24 04:38 09/11/24 04:38 <David Martines - Last Filed: 09/11/24 08:05> - Medical Decision Making Was pt. sent in by a medical professional or institution ([facility], [employer] CH[employer] MACHINE OPERATOR, urgent care, hospital, or intermediate...) When possible be specific @ -No Did you speak to anyone other than the patient for history (EMS, parent, family, police, friend...)? What history was obtained from this source @ - is present and helps prior to history including onset of symptoms and medication taken Did you review nursing and triage notes (agree or disagree)? Why? @ -I reviewed and agree with nursing and triage notes Were old charts reviewed (outside hosp., previous admission, EMS record, old EKG, old radiological studies, urgent care reports/EKG's, intermediate records)? Report findings @ -No old charts were reviewed Differential Diagnosis (chest pain, altered mental status, abdominal pain women, abdominal pain men, vaginal bleeding, weakness, fever, dyspnea, syncope, headache, dizziness, GI bleed, back pain, seizure, CVA, palpatations, mental health, musculoskeletal)? @ -Differential Abdominal Pain Women: Appendicitis, Cholecystitis, diverticulosis, ischemic bowel, pancreatitis, hepatitis, UTI, gastroenteritis, AAA, incarcerated hernia, bowel obstruction, constipation, inflammatory bowel, hepatitis, peptic ulcer disease, splenic infarction, perforated viscus, vulvitis, ovarian torsion, PID, kidney stone, placenta abruption, this is not meant to be an all-inclusive list EKG interpreted by me (3pts min.). @ -As above X-rays interpreted by me (1pt min.). @ -None done CT interpreted by me (1pt min.). @ -CT scan abdomen pelvis shows bladder wall thickening U/S interpreted by me (1pt. min.). @ -None done What testing was considered but not performed or refused? (CT, X-rays, U/S, labs)? Why? @ -None What meds were considered but not given or refused? Why? @ -None Did you discuss the management of the patient with other professionals (professionals i.e. Dr., PA, [employer] CHIPPER MACHINE OPERATOR, lab, RT, psych nurse, forensic social worker, shipping supervisor, teacher, asset protection officer, case assembler)? Give summary @ -No Was smoking cessation discussed for >3mins.? @ -No Was critical care preformed (if so, how long)? @ -No Were there social determinants of health that impacted care today? How? (Homelessness, low income, unemployed, alcoholism, drug addiction, transportation, low edu. Level, literacy, decrease access to med. care, senior living, rehab)? @ -No Was there de-escalation of care discussed even if they declined (Discuss DNR or withdrawal of care, Hospice)? DNR status @ -No What co-morbidities impacted this encounter? (DM, HTN, Smoking, COPD, CAD, Cancer, CVA, ARF, Chemo, Hep., AIDS, mental health diagnosis, sleep apnea, morbid obesity)? @ -None Was patient admitted / discharged? Hospital course, mention meds given and route, prescriptions, significant lab abnormalities, going to OR and other pertinent info. @ -Patient presents with lower abdominal discomfort. Urinalysis and CT scan c oncerning for urinary tract infection. Patient reevaluated. Abdomen soft and nontender. Patient is updated on results and plan. Undiagnosed new problem with uncertain prognosis? @ -No Drug Therapy requiring intensive monitoring for toxicity (Heparin, Nitro, Insulin, Cardizem)? @ -No Were any procedures done? @ -No Diagnosis/symptom? @ -Cystitis Acute, or Chronic, or Acute on Chronic? @ -Acute Uncomplicated (without systemic symptoms) or Complicated (systemic symptoms)? @ -Default Side effects of treatment? @ -No Exacerbation, Progression, or Severe Exacerbation? @ -No Poses a threat to life or bodily function? How? (Chest pain, [place], ND, pneumonia, PE, COPD, DKA, ARF, appy, cholecystitis, CVA, Diverticulitis, Homicidal, Suicidal, threat to staff... and all critical care pts) @ -No (David Martines) - Lab Data Lab Results 09/11/24 09/11/24 09/11/24 Range/Units 04:30 04:38 04:38 WBC 11.7 H (3.8-10.6) k/uL RBC 4.39 (3.80-5.40) m/uL Hgb 13.3 (11.4-16.0) gm/dL Hct 39.7 (34.0-46.0) % MCV 90.5 (80.0-100.0) fL MCH 30.2 (25.0-35.0) pg MCHC 33.4 (31.0-37.0) g/dL RDW 12.4 (11.5-15.5) % Plt Count 265 (150-450) k/uL MPV 7.0 Neutrophils % 73 % Lymphocytes % 18 % Monocytes % 4 % Eosinophils % 4 % Basophils % 0 % Neutrophils # 8.5 H (1.3-7.7) k/uL Lymphocytes # 2.1 (1.0-4.8) k/uL Monocytes # 0.5 (0-1.0) k/uL Eosinophils # 0.4 (0-0.7) k/uL Basophils # 0.1 (0-0.2) k/uL Sodium 138 (137-145) mmol/L Potassium 4.0 (3.5-5.1) mmol/L Chloride 100 (98-107) mmol/L Carbon Dioxide 28 (22-30) mmol/L Anion Gap 10 mmol/L BUN 11 (7-17) mg/dL Creatinine 0.58 (0.52-1.04) mg/dL Est GFR (CKD-EPI)AfAm >90 (>60 ml/min/1.73 sqM) Est GFR (CKD-EPI)NonAf >90 (>60 ml/min/1.73 sqM) Glucose 94 (74-99) mg/dL Plasma Lactic Acid Hans (0.7-2.0) mmol/L Calcium 9.4 (8.4-10.2) mg/dL Total Bilirubin 0.4 (0.2-1.3) mg/dL AST 26 (14-36) U/L ALT 39 H (4-34) U/L Alkaline Phosphatase 86 (38-126) U/L C-Reactive Protein <0.5 (<1.0) mg/dL Total Protein 8.0 (6.3-8.2) g/dL Albumin 4.5 (3.5-5.0) g/dL Amylase 55 (30-110) U/L Lipase 129 (23-300) U/L Urine Color Red Urine Appearance Turbid H (Clear) Urine pH 6.0 (5.0-8.0) Ur Specific [place] 1.019 (1.001-1.035) Urine Protein 2+ H (Negative) Urine Glucose (UA) Negative (Negative) Urine Ketones Negative (Negative) Urine Blood Large H (Negative) Urine Nitrite Negative (Negative) Urine Bilirubin Negative (Negative) Urine Urobilinogen <2.0 (<2.0) mg/dL Ur Leukocyte Esterase Large H (Negative) Urine RBC >182 H (0-5) /hpf Urine WBC >182 H (0-5) /hpf Urine WBC Clumps Many H (None) /hpf Calcium Oxalate Crystal Many H (None) /hpf Urine Yeast (Budding) Moderate H (None) /hpf 03/20/25 Range/Units 04:38 WBC (3.8-10.6) k/uL RBC (3.80-5.40) m/uL Hgb (11.4-16.0) gm/dL Hct (34.0-46.0) % MCV (80.0-100.0) fL MCH (25.0-35.0) pg MCHC (31.0-37.0) g/dL RDW (11.5-15.5) % Plt Count (150-450) k/uL MPV Neutrophils % % Lymphocytes % % Monocytes % % Eosinophils % % Basophils % % Neutrophils # (1.3-7.7) k/uL Lymphocytes # (1.0-4.8) k/uL Monocytes # (0-1.0) k/uL Eosinophils # (0-0.7) k/uL Basophils # (0-0.2) k/uL Sodium (137-145) mmol/L Potassium (3.5-5.1) mmol/L Chloride (98-107) mmol/L Carbon Dioxide (22-30) mmol/L Anion Gap mmol/L BUN (7-17) mg/dL Creatinine (0.52-1.04) mg/dL Est GFR (CKD-EPI)AfAm (>60 ml/min/1.73 sqM) Est GFR (CKD-EPI)NonAf (>60 ml/min/1.73 sqM) Glucose (74-99) mg/dL Plasma Lactic Acid Hans 1.2 (0.7-2.0) mmol/L Calcium (8.4-10.2) mg/dL Total Bilirubin (0.2-1.3) mg/dL AST (14-36) U/L ALT (4-34) U/L Alkaline Phosphatase (38-126) U/L C-Reactive Protein (<1.0) mg/dL Total Protein (6.3-8.2) g/dL Albumin (3.5-5.0) g/dL Amylase (30-110) U/L Lipase (23-300) U/L Urine Color Urine Appearance (Clear) Urine pH (5.0-8.0) Ur Specific [place] (1.001-1.035) Urine Protein (Negative) Urine Glucose (UA) (Negative) Urine Ketones (Negative) Urine Blood (Negative) Urine Nitrite (Negative) Urine Bilirubin (Negative) Urine Urobilinogen (<2.0) mg/dL Ur Leukocyte Esterase (Negative) Urine RBC (0-5) /hpf Urine WBC (0-5) /hpf Urine WBC Clumps (None) /hpf Calcium Oxalate Crystal (None) /hpf Urine Yeast (Budding) (None) /hpf Disposition <Betito Dickens - Last Filed: 09/11/24 04:53> Is patient prescribed a controlled substance at d/c from ED?: No Time of Disposition: 08:05 <David Martines - Last Filed: 09/11/24 08:05> Clinical Impression: Cystitis Disposition: HOME SELF-CARE Condition: Stable Instructions (If sedation given, give patient instructions): Urinary Tract Infection in Women (ED) Additional Instructions: Please do follow-up with your primary care physician in the next day or 2 for recheck. Return for fever, vomiting, worsening or changing symptoms or any other concerns. Prescription has been sent to your pharmacy. Prescriptions: Sulfamethox-Tmp 800-160Mg [Bactrim DS 800-160 mg] 1 each PO Q12HR #20 tab Referrals: Connor King Jr, [Primary Care Provider] - 1-2 days
[2024-09-11 05:01] LABS: Basophils # (A) 0.1 k/uL (0-0.2); Basophils % (A) 0 %; Eosinophils # (A) 0.4 k/uL (0-0.7); Eosinophils % (A) 4 %; HCT 39.7 % (34.0-46.0); HGB 13.3 gm/dL (11.4-16.0); Lymphocytes # (A) 2.1 k/uL (1.0-4.8); Lymphocytes % (A) 18 %; MCH 30.2 pg (25.0-35.0); MCHC 33.4 g/dL (31.0-37.0); MCV 90.5 fL (80.0-100.0); Monocytes # (A) 0.5 k/uL (0-1.0); Monocytes % (A) 4 %; Neutrophils # (A) 8.5 k/uL (1.3-7.7); Neutrophils % (A) 73 %; Platelet Count 265 k/uL (150-450); RBC 4.39 m/uL (3.80-5.40); RDW 12.4 % (11.5-15.5); WBC 11.7 k/uL (3.8-10.6)
[2024-09-11 05:57] LABS: ALT 39 U/L (4-34); AST 26 U/L (14-36); African American GFR (CKD) >90 (>60 ml/min/1.73 sqM); Albumin 4.5 g/dL (3.5-5.0); Alkaline Phosphatase 86 U/L (38-126); Amylase 55 U/L (30-110); Anion Gap 10 mmol/L; Blood Urea Nitrogen 11 mg/dL (7-17); C Reactive Protein <0.5 mg/dL (<1.0); Calcium 9.4 mg/dL (8.4-10.2); Carbon Dioxide 28 mmol/L (22-30); Chloride 100 mmol/L (98-107); Glucose 94 mg/dL (74-99); Lipase 129 U/L (23-300); Non-African American GFR(CKD) >90 (>60 ml/min/1.73 sqM); Sodium 138 mmol/L (137-145); Total Bilirubin 0.4 mg/dL (0.2-1.3)
[2024-09-11 06:32] LABS: Appearance,Urine Turbid (Clear); Bilirubin,Urine Negative (Negative); Blood,Urine Large (Negative); Budding Yeast,Urine Moderate /hpf; Calcium Oxalate Crystals,Urine Many /hpf; Color,Urine Red; Glucose,Urine (UA) Negative (Negative); Ketones,Urine Negative (Negative); Leukocyte Esterase,Urine Large (Negative); Nitrite,Urine Negative (Negative); Protein,Urine 2+ (Negative); RBC,Urine >182 /hpf (0-5); Specific Gravity,Urine 1.019 (1.001-1.035); Urobilinogen,Urine <2.0 mg/dL (<2.0); WBC,Urine >182 /hpf (0-5)
--- NOTE | 2024-09-11 07:35 | CT ---
EXAMINATION TYPE: CT abdomen pelvis wo con DATE OF EXAM: 09/11/2024 7:07 AM COMPARISON: 08/26/2024 CLINICAL INDICATION: Female, 54 years old with history of abdominal pain/hematuria; abdominal pain, h ematuria since yesterday afternoon 09/10/24 TECHNIQUE: Axial CT abdomen pelvis wo con;Sagittal and coronal reformats were created on a separate workstation. Contrast used: mL of , (none if empty) Oral contrast used: without Oral Contrast (none if empty) CT DLP: 622.5 mGycm, Automated exposure control for dose reduction was used. FINDINGS: LOWER CHEST: Unremarkable ABDOMEN LIVER: Unremarkable GALLBLADDER AND BILE DUCTS: The gallbladder is surgically absent. PANCREAS: Unremarkable. SPLEEN: Unremarkable. ADRENAL GLANDS: Unremarkable. KIDNEYS AND URETERS: No evidence of hydronephrosis or renal calculus. The ureters are unremarkable. PELVIS BLADDER: Circumferential wall thickening within nondistended bladder no calculi visualized. REPRODUCTIVE: Unremarkable. ABDOMEN & PELVIS STOMACH AND BOWEL: No evidence of bowel obstruction. There is a large amount stool in the cecum which is positioned above the bladder. Postsurgical changes of the sigmoid colon with suture present scatt ered colonic diverticula. PERITONEUM/RETROPERITONEUM: No evidence of pneumoperitoneum or free fluid. VASCULATURE: No evidence of aortic aneurysm. MUSCULOSKELETAL: No acute osseous abnormalities. Mild disc degeneration changes are present throughou t the thoracolumbar spine. Grade 1 anterior listhesis of L4 and L5 without evidence for spondylolysis .. LYMPH NODES: No gross evidence for lymphadenopathy. SOFT TISSUE/ABDOMINAL WALL: Small fat-containing ventral wall hernias. IMPRESSION: 1. Mild circumferential wall thickening of the urinary bladder without evidence for calculus. Correl ate for cystitis with urinalysis. 2. No evidence for obstructive uropathy or calculus. Similar findings to 08/26/2024. 3. Grade 1 anterolisthesis of L4 and L5 without spondylolysis. 4. Colonic diverticulosis. [facility], , 09/11/2024 7:32 AM
[2024-09-11] MEDS: MORPHINE SULFATE 4 MG/ML SYRINGE IVP STA (08:44)
[2024-09-11 08:47] VITALS: BP 135/93; PULSE 84; RESP 18; TEMP 98.4
== END 2024-09-11 08:52 | disposition home or self-care (01) ==
LOC: EC 04:10
DX: N30.91 Cystitis, unspecified with hematuria (principal); N32.89 Other specified disorders of bladder; Z88.1 Allergy status to other antibiotic agents; Z88.8 Allergy status to other drugs, medicaments and biological substances; Z91.018 Allergy to other foods; Z86.73 Personal history of transient ischemic attack (TIA), and cerebral infarction without residual deficits; Z87.891 Personal history of nicotine dependence
CPT/HCPCS: 36415; 80053; 82150; 83605; 83690; 85025; 86140; 81001; 87086; 74176; 99284; 96365; 96375; 96376; J2270; J0696

== ENCOUNTER → 2024-12-24 | Outpatient (CLI) | payer OTHER ==
--- NOTE | 2024-12-24 12:41 | XR ---
EXAMINATION TYPE: XR chest 2V DATE OF EXAM: 12/24/2024 12:26 PM COMPARISON: Chest radiographs from 04/29/2021 TECHNIQUE: XR chest 2V Frontal and lateral views of the chest. CLINICAL INDICATION:Female, 54 years old with history of ENCOUNTER FOR OTHER PREPROCEDURAL EXAMINATIO N; right-sided anterior lump near breast FINDINGS: Lungs/Pleura: There is no evidence of pleural effusion, focal consolidation, or pneumothorax. Pulmonary vascularity: Unremarkable. Heart/mediastinum: Cardiomediastinal silhouette is unremarkable. Musculoskeletal: No acute osseous pathology. IMPRESSION: No acute cardiopulmonary disease/process. [facility], , 12/24/2024 12:38 PM
[2024-12-24 13:06] LABS: Bilirubin,Urine Negative (Negative); Blood,Urine Negative (Negative); Color,Urine Light Yellow; Glucose,Urine (UA) Negative (Negative); Ketones,Urine Negative (Negative); Leukocyte Esterase,Urine Negative (Negative); Nitrite,Urine Negative (Negative); PH, Urine 8.0 (5.0-8.0); Protein,Urine Negative (Negative); Specific Gravity,Urine 1.012 (1.001-1.035); Urobilinogen,Urine <2.0 mg/dL (<2.0)
[2024-12-24 15:12] LABS: Basophils # (A) 0.04 X 10*3/uL (0.00-0.10); Basophils % (A) 0.7 %; Eosinophils # (A) 0.22 X 10*3/uL (0.04-0.35); Eosinophils % (A) 4.1 %; HCT 39.4 % (37.2-46.3); HGB 13.3 g/dL (12.0-15.0); Immature Grans, Automated 0.40 %; Lymphocytes # (A) 1.48 X 10*3/uL (0.90-5.00); Lymphocytes % (A) 27.7 %; MCH 31.7 pg (27.0-32.0); MCHC 33.8 g/dL (32.0-37.0); MCV 94.0 FL (80.0-97.0); Monocytes # (A) 0.33 X 10*3/uL (0.20-1.00); Monocytes % (A) 6.2 %; NRBC Per 100 WBC 0 X 10*3/uL (0.00-0.01); Neutrophils # (A) 3.26 X 10*3/uL (1.80-7.70); Neutrophils % (A) 60.9 %; Platelet Count 254 X 10*3/uL (140-440); RBC 4.19 X 10*6/uL (4.10-5.20); RDW 13.2 % (11.5-14.5); WBC 5.35 X 10*3/uL (4.50-10.00)
[2024-12-24 15:24] LABS: ALT 33 U/L (8-44); AST 22 U/L (13-35); Albumin 4.2 g/dL (3.8-4.9); Albumin/Globulin Ratio 1.31 Ratio (1.60-3.17); Alkaline Phosphatase 80 U/L (41-126); Anion Gap 7.40 mmol/L (4.00-12.00); BUN/Creat Ratio 15.17 Ratio (12.00-20.00); Blood Urea Nitrogen 9.1 mg/dL (9.0-27.0); Calcium 9.2 mg/dL (8.7-10.3); Carbon Dioxide 29.6 mmol/L (21.6-31.8); Chloride 102 mmol/L (96-109); Globulin 3.2 g/dL (1.6-3.3); Glucose 113 mg/dL (70-110); Potassium 4.4 mmol/L (3.5-5.5); Sodium 139 mmol/L (135-145); Total Protein 7.4 g/dL (6.2-8.2)
== END | disposition home or self-care (01) ==
LOC: LABWHC1 11:54
PROVIDERS: ATTEND Family Medicine
DX: R61 Generalized hyperhidrosis (principal); R00.0 Tachycardia, unspecified; R53.83 Other fatigue; R07.9 Chest pain, unspecified
CPT/HCPCS: 36415; 71046; 80053; 81003; 84484; 85025